=== PATIENT | female | born 1935 | race Caucasian/White ===

== ENCOUNTER → 2016-06-04 | Outpatient (CLI) | payer MEDICARE ==
[2016-06-04 09:46] LABS: Appearance,Urine Clear (Clear); Bilirubin,Urine Negative (Negative); Glucose,Urine (UA) Negative (Negative); Ketones,Urine Negative (Negative); Leukocyte Esterase,Urine Negative (Negative); Nitrite,Urine Negative (Negative); Protein,Urine Negative (Negative); Specific Gravity,Urine 1.005 (1.001-1.035); UA Billing (MACRO vs. MICRO) CHEM; Urobilinogen,Urine <2.0 mg/dL (<2.0)
[2016-06-04 09:49] LABS: Basophils # (A) 0.1 k/uL (0-0.2); Basophils % (A) 1 %; CH 29.5; CHCM 32.9; Eosinophils # (A) 0.2 k/uL (0-0.7); Eosinophils % (A) 4 %; HCT 37.5 % (34.0-46.0); HDW 2.58; HGB 12.1 gm/dL (11.4-16.0); Luc # (Auto) 0.17; Luc % (Auto) 3; Lymphocytes # (A) 1.2 k/uL (1.0-4.8); Lymphocytes % (A) 22 %; MCHC 32.2 g/dL (31.0-37.0); Monocytes # (A) 0.3 k/uL (0-1.0); Monocytes % (A) 6 %; Neutrophils # (A) 3.6 k/uL (1.3-7.7); Neutrophils % (A) 64 %; RBC 4.17 m/uL (3.80-5.40); RDW 12.2 % (11.5-15.5); WBC 5.6 k/uL (3.8-10.6); WBC (Perox) 6.06
[2016-06-04 12:37] LABS: Calcium 9.4 mg/dL (8.4-10.2); Magnesium 2.1 mg/dL (1.6-2.3); Phosphorous 4.7 mg/dL (2.5-4.5); Potassium 4.3 mmol/L (3.5-5.1); Uric Acid 7.2 mg/dL (3.7-7.4)
[2016-06-04 12:47] LABS: % Iron Saturation 29.5 % (20-50)
== END | disposition home or self-care (01) ==
LOC: LABWHC1 09:17
PROVIDERS: ATTEND Internal Medicine Nephrology
DX: N18.4 Chronic kidney disease, stage 4 (severe) (principal); N25.81 Secondary hyperparathyroidism of renal origin; E55.9 Vitamin D deficiency, unspecified; M10.9 Gout, unspecified; N39.0 Urinary tract infection, site not specified
CPT/HCPCS: 36415; 80048; 81003; 82306; 82728; 83540; 83550; 83735; 83970; 84100; 84550; 85025

== ENCOUNTER → 2016-07-13 | Outpatient (CLI) | payer MEDICARE ==
--- NOTE | 2016-07-15 08:23 | MM ---
Reason for exam: screening (asymptomatic). Last mammogram was performed 1 year ago. History: Patient is postmenopausal and is nulliparous. Family history of breast cancer in sister at age 70. Benign MG stereo VAD BX LT of the left breast, December 28, 2013. Benign left mammotome panel of the left breast, December 28, 2011. Benign right mammotome panel of the right breast, November 01, 2009. Benign left mammotome panel of the left breast, November 09, 2007. Benign stereotactic core biopsy of the right breast, September 06, 2003. Core biopsy of the right breast. Taking other hormone for 38 years. Physical Findings: A clinical breast exam by your physician is recommended on an annual basis and results should be correlated with mammographic findings. MG 3D Screening Mammo W/Cad Bilateral CC and MLO view(s) were taken. XCCL view(s) were taken of the right breast. Prior study comparison: July 02, 2015, bilateral MG 3d diag mammo w/cad ROJAS. December 31, 2014, bilateral MG diagnostic mammo w CAD ROJAS. The breast tissue is heterogeneously dense. This may lower the sensitivity of mammography. Finding: There are typically benign coarse, grouped/clustered calcifications. Previous mammotome biopsy in the right and left breast, multiple biopsies. No significant changes in finding since July 02, 2015 and December 31, 2014. ASSESSMENT: Benign, BI-RAD 2 RECOMMENDATION: Routine screening mammogram of both breasts in 1 year.
== END | disposition home or self-care (01) ==
LOC: RADMAMWWP 14:14
PROVIDERS: ATTEND Internal Medicine
DX: Z12.31 Encounter for screening mammogram for malignant neoplasm of breast (principal)
CPT/HCPCS: 77063; G0202

== ENCOUNTER → 2016-11-03 | Outpatient (CLI) | payer MEDICARE ==
[2016-11-03 09:04] LABS: Appearance,Urine Clear (Clear); Basophils # (A) 0.1 k/uL (0-0.2); Basophils % (A) 2 %; Bilirubin,Urine Negative (Negative); CH 29.6; CHCM 32.8; Eosinophils # (A) 0.2 k/uL (0-0.7); Eosinophils % (A) 5 %; Glucose,Urine (UA) Negative (Negative); HCT 32.8 % (34.0-46.0); HDW 2.51; HGB 10.7 gm/dL (11.4-16.0); Ketones,Urine Negative (Negative); Leukocyte Esterase,Urine Negative (Negative); Luc # (Auto) 0.15; Luc % (Auto) 4; Lymphocytes # (A) 1.1 k/uL (1.0-4.8); Lymphocytes % (A) 28 %; MCH 29.5 pg (25.0-35.0); MCHC 32.5 g/dL (31.0-37.0); MCV 90.6 fL (80.0-100.0); Monocytes # (A) 0.3 k/uL (0-1.0); Monocytes % (A) 7 %; Neutrophils # (A) 2.2 k/uL (1.3-7.7); Neutrophils % (A) 55 %; Nitrite,Urine Negative (Negative); PH, Urine 5.5 (5.0-8.0); Protein,Urine Negative (Negative); RBC 3.63 m/uL (3.80-5.40); RDW 12.7 % (11.5-15.5); Specific Gravity,Urine 1.005 (1.001-1.035); UA Billing (MACRO vs. MICRO) CHEM; Urobilinogen,Urine <2.0 mg/dL (<2.0); WBC (Perox) 4.07
[2016-11-03 11:26] LABS: Calcium 9.6 mg/dL (8.4-10.2); Magnesium 2.2 mg/dL (1.6-2.3); Phosphorous 4.3 mg/dL (2.5-4.5); Potassium 4.6 mmol/L (3.5-5.1); Uric Acid 7.7 mg/dL (3.7-7.4)
[2016-11-03 11:39] LABS: % Iron Saturation 23.5 % (20-50)
== END | disposition home or self-care (01) ==
LOC: LABWHC1 08:25
PROVIDERS: ATTEND Nurse Practitioner Family
DX: D64.9 Anemia, unspecified (principal); M10.9 Gout, unspecified; N39.0 Urinary tract infection, site not specified; N18.3 Chronic kidney disease, stage 3 (moderate)
CPT/HCPCS: 36415; 80048; 81003; 82306; 82728; 83540; 83550; 83735; 83970; 84100; 84550; 85025

== ENCOUNTER → 2016-11-20 | Outpatient (CLI) | payer MEDICARE ==
[2016-11-20 10:16] LABS: Appearance,Urine Clear (Clear); Bilirubin,Urine Negative (Negative); Glucose,Urine (UA) Negative (Negative); Ketones,Urine Negative (Negative); Leukocyte Esterase,Urine Negative (Negative); Nitrite,Urine Negative (Negative); Protein,Urine Negative (Negative); Specific Gravity,Urine 1.008 (1.001-1.035); UA Billing (MACRO vs. MICRO) CHEM; Urobilinogen,Urine <2.0 mg/dL (<2.0)
[2016-11-20 10:20] LABS: Calcium 9.4 mg/dL (8.4-10.2); Potassium 4.6 mmol/L (3.5-5.1)
== END ==
LOC: LABWHC1 08:26
PROVIDERS: ATTEND Nurse Practitioner Family
DX: N18.3 Chronic kidney disease, stage 3 (moderate) (principal); N39.0 Urinary tract infection, site not specified
CPT/HCPCS: 36415; 80048; 81003

== ENCOUNTER → 2016-12-04 | Outpatient (CLI) | payer MEDICARE ==
[2016-12-04 10:14] LABS: Appearance,Urine Clear (Clear); Bilirubin,Urine Negative (Negative); Glucose,Urine (UA) Negative (Negative); Ketones,Urine Negative (Negative); Leukocyte Esterase,Urine Trace (Negative); Mucus,Urine Rare /hpf; Nitrite,Urine Negative (Negative); PH, Urine 5.5 (5.0-8.0); Particle Count 928; Protein,Urine Negative (Negative); Specific Gravity,Urine 1.004 (1.001-1.035); UA Billing (MACRO vs. MICRO) MICRO; Urobilinogen,Urine <2.0 mg/dL (<2.0); WBC,Urine 1 /hpf (0-5)
[2016-12-04 10:17] LABS: Calcium 9.2 mg/dL (8.4-10.2); Potassium 4.5 mmol/L (3.5-5.1)
== END | disposition home or self-care (01) ==
LOC: LABWHC1 09:20
PROVIDERS: ATTEND Nurse Practitioner Family
DX: N39.0 Urinary tract infection, site not specified (principal); N18.3 Chronic kidney disease, stage 3 (moderate)
CPT/HCPCS: 36415; 80048; 81001

== ENCOUNTER → 2017-03-29 | Outpatient (CLI) | payer MEDICARE ==
[2017-03-29 13:15] LABS: Calcium 9.5 mg/dL (8.4-10.2); Potassium 4.7 mmol/L (3.5-5.1)
== END | disposition home or self-care (01) ==
LOC: LABWHC1 12:08
PROVIDERS: ATTEND Internal Medicine
DX: I11.9 Hypertensive heart disease without heart failure (principal); K21.0 Gastro-esophageal reflux disease with esophagitis
CPT/HCPCS: 36415; 80048

== ENCOUNTER → 2017-08-18 | Outpatient (CLI) | payer MEDICARE ==
[2017-08-18 08:58] LABS: HCT 37.6 % (34.0-46.0); HGB 12.6 gm/dL (11.4-16.0); MCH 28.9 pg (25.0-35.0); MCHC 33.5 g/dL (31.0-37.0); MCV 86.3 fL (80.0-100.0); Mean Platelet Volume 8.3; Platelet Count 271 k/uL (150-450); RBC 4.36 m/uL (3.80-5.40); WBC 5.6 k/uL (3.8-10.6)
[2017-08-18 09:11] LABS: Appearance,Urine Clear (Clear); Bilirubin,Urine Negative (Negative); Blood,Urine Negative (Negative); Color,Urine Light Yellow; Glucose,Urine (UA) Negative (Negative); Ketones,Urine Negative (Negative); Leukocyte Esterase,Urine Negative (Negative); Nitrite,Urine Negative (Negative); Protein,Urine Negative (Negative); Specific Gravity,Urine 1.006 (1.001-1.035); Urobilinogen,Urine <2.0 mg/dL (<2.0)
[2017-08-18 09:15] LABS: Calcium 9.3 mg/dL (8.4-10.2)
[2017-08-18 16:12] LABS: Iron Saturation 38.41 (12.00-45.00)
[2017-08-18 16:20] LABS: Vitamin D 25 Hydroxy 41.2 ng/mL (30.0-100.0)
[2017-08-18 17:05] LABS: Parathyroid Hormone Intact 71.9 pg/mL (14.0-72.0)
== END | disposition home or self-care (01) ==
LOC: LABWHC1 08:30
PROVIDERS: ATTEND Nurse Practitioner Family
DX: N18.3 Chronic kidney disease, stage 3 (moderate) (principal); E55.9 Vitamin D deficiency, unspecified; N25.81 Secondary hyperparathyroidism of renal origin; D50.9 Iron deficiency anemia, unspecified; N39.0 Urinary tract infection, site not specified
CPT/HCPCS: 36415; 80048; 81003; 82306; 82728; 83540; 83550; 83735; 83970; 84100; 85027

== ENCOUNTER → 2017-08-30 | Outpatient (CLI) | payer MEDICARE ==
--- NOTE | 2017-08-31 13:28 | MM ---
Reason for exam: screening (asymptomatic). Last mammogram was performed 1 year and 2 months ago. History: Patient is postmenopausal and is nulliparous. Family history of breast cancer in sister at age 70. Benign MG stereo VAD BX LT of the left breast, December 28, 2013. Benign left mammotome panel of the left breast, December 28, 2011. Benign right mammotome panel of the right breast, November 01, 2009. Benign left mammotome panel of the left breast, November 09, 2007. Benign stereotactic core biopsy of the right breast, September 06, 2003. Core biopsy of the right breast. Taking other hormone for 38 years. Physical Findings: A clinical breast exam by your physician is recommended on an annual basis and results should be correlated with mammographic findings. MG 3D Screening Mammo W/Cad Bilateral CC and MLO view(s) were taken. Prior study comparison: July 13, 2016, bilateral MG 3d screening mammo w/cad. July 02, 2015, bilateral MG 3d diag mammo w/cad ROJAS. The breast tissue is heterogeneously dense. This may lower the sensitivity of mammography. There are typically benign round, dystrophic calcifications in both breasts. Previous mammotome biopsy in the right breast x 2 and in the left breast. There is no discrete abnormality. ASSESSMENT: Benign, BI-RAD 2 RECOMMENDATION: Routine screening mammogram of both breasts in 1 year.
== END | disposition home or self-care (01) ==
LOC: RADMAMWWP 14:56
PROVIDERS: ATTEND Internal Medicine
DX: Z12.31 Encounter for screening mammogram for malignant neoplasm of breast (principal)
CPT/HCPCS: 77063; 77067

== ENCOUNTER 2017-11-11 22:51 | Inpatient (IN) | payer MEDICARE ==
--- NOTE | 2017-11-11 23:15 | CT ---
EXAMINATION TYPE: CT brain wo con for TPA DATE OF EXAM: 11/11/2017 COMPARISON: 09/02/2015 HISTORY: code stroke CT DLP: 1153.50 mGycm Automated exposure control for dose reduction was used. FINDINGS: There is some cerebral cortical atrophy. There is no mass effect nor midline shift. There is no sign of intracranial hemorrhage. There is 2 cm cortical hypodensity in the left posterior temporal lobe co nsistent with old infarct. The calvarium is intact. 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 CEREBRAL ATROPHY. NO ACUTE INTRACRANIAL ABNO RMALITY.
[2017-11-11 23:20] LABS: Basophils % (A) 1 %; Eosinophils # (A) 0.1 k/uL (0-0.7); Eosinophils % (A) 2 %; HCT 24.5 % (34.0-46.0); HGB 7.9 gm/dL (11.4-16.0); Lymphocytes # (A) 0.8 k/uL (1.0-4.8); Lymphocytes % (A) 12 %; MCH 27.6 pg (25.0-35.0); MCHC 32.4 g/dL (31.0-37.0); MCV 85.3 fL (80.0-100.0); Mean Platelet Volume 8.1; Monocytes # (A) 0.7 k/uL (0-1.0); Monocytes % (A) 10 %; Neutrophils % (A) 73 %; Platelet Count 273 k/uL (150-450); RBC 2.87 m/uL (3.80-5.40); RDW 12.2 % (11.5-15.5); WBC 6.8 k/uL (3.8-10.6)
--- NOTE | 2017-11-11 23:22 | CT ---
EXAMINATION TYPE: CT angio head neck DATE OF EXAM: 11/11/2017 HISTORY: CODE STROKE COMPARISON: CT DLP: 1153.50 mGycm. Automated Exposure Control for Dose Reduction was Utilized. TECHNIQUE: CTA scan of the neck is performed with IV Contrast, patient injected with 65 mL of Isovue 370, axial images are obtained, coronal and sagittal reformatted images are reviewed. Three-D recons tructed images are created on an independent workstation and reviewed. FINDINGS: There is normal branching pattern of the great vessels on the aortic arch. There is mild atheromatous change at the aortic arch. I see no evidence of significant stenosis of the great vessels. There is bilateral arterial flow in the common internal and external carotid arteries. There is redun dant right common carotid artery. I see no significant narrowing at the carotid artery bifurcations. There is no evidence of carotid artery dissection. The right vertebral artery is very small. Left vidhi tebral artery is a relatively large. The basilar artery fills entirely from the left side. There is arterial flow in the anterior middle and posterior cerebral arteries. There is normal contra st opacification of the venous sinuses. There is arterial flow in the vertebrobasilar artery system. There is bilateral patency of the posterior communicating arteries. There is no mass effect. I see no sign of aneurysm or neovascularity. There is no evidence of intracranial arterial stenosis. Middle c erebral arteries are symmetric. The left posterior cerebral artery appears to fill mostly through the posterior communicating artery. IMPRESSION: Minimal atherosclerotic vascular disease. No evidence of hemodynamically significant stenosis. Diminu tive right vertebral artery. Mucous retention tension cyst noted in the left maxillary sinus.
[2017-11-11 23:28] LABS: Partial Thromboplastin Time 22.9 sec (22.0-30.0); Prothrombin Time 9.9 sec (9.0-12.0)
[2017-11-11 23:29] LABS: Albumin 2.7 g/dL (3.5-5.0); Calcium 7.7 mg/dL (8.4-10.2); Potassium 4.3 mmol/L (3.5-5.1); Total Bilirubin 0.3 mg/dL (0.2-1.3)
[2017-11-11 23:38] LABS: Creatine Kinase 43 U/L (30-135)
[2017-11-11 23:50] LABS: Creatine Kinase MB 0.7 ng/mL (0.0-2.4); Troponin I <0.012 ng/mL (0.000-0.034)
[2017-11-12] MEDS ORDERED: ASPIRIN 81 MG PO STA (00:05)
--- NOTE | 2017-11-12 02:05 | ED ---
General Adult HPI - General Chief complaint: Neuro Symptoms/Deficit Stated complaint: Neuro Deficits Source: patient, EMS Mode of arrival: EMS Limitations: altered mental status - History of Present Illness Initial comments: Dictation was produced using [employer] dictation software. please excuse any grammatical, word or spelling errors. Chief Complaint: 82-year-old female past medical history of CVA presents with altered mental status 50 minutes. Patient was with her family when she became acutely altered. Patient has history of CVA several years ago. She takes Plavix. Patient is unable to provide History of Present Illness: 82-year-old female past medical history of CVA presents with altered mental status 50 minutes. Patient was with her family when she became acutely altered. Patient has history of CVA several years ago. She takes Plavix. Patient is unable to provide patient at this time given degree of mentation. EMS reports that patient has stable vital signs. Past Medical History: CVA, TIA, hyperlipidemia, hypertension, renal disease, thyroid disorder Past Surgical History: Adenoidectomy, tonsillectomy Social History: [denies alcohol, tobacco or illicit drug use] - Related Data Home Medications Medication Instructions Recorded Confirmed Atenolol [Tenormin] 50 tab PO DAILY 08/31/15 11/12/17 Clopidogrel [Plavix] 75 mg PO DAILY 08/31/15 11/12/17 Famotidine [Pepcid] 40 mg PO DAILY 08/31/15 11/12/17 Levothyroxine Sodium [Synthroid] 125 mcg PO DAILY 08/31/15 11/12/17 Simvastatin [Zocor] 40 mg PO HS 08/31/15 11/12/17 Ergocalciferol (Vitamin D2) 50,000 unit PO Q30D 05/12/17 11/12/17 [Vitamin D2] Lisinopril [Zestril] 30 mg PO DAILY 11/12/17 11/12/17 Allergies Allergy/AdvReac Type Severity Reaction Status Date / Time codeine Allergy Rash/Hives Verified 11/12/17 03:39 ciprofloxacin AdvReac Diarrhea Verified 11/12/17 03:39 Review of Systems ROS Statement: Those systems with pertinent positive or pertinent negative responses have been documented in the HPI. ROS Other: All systems not noted in ROS Statement are negative. Past Medical History Past Medical History: CVA/TIA, Hyperlipidemia, Hypertension, Renal Disease, Thyroid Disorder Additional Past Medical History / Comment(s): Acute Renal Failure 08/31/15, arthritis- takes extra strength tylenol, Rheumatic fever and miranda fever as a child. Frequent bronchitis History of Any Multi-Drug Resistant Organisms: None Reported Past Surgical History: Adenoidectomy, Tonsillectomy Additional Past Surgical History / Comment(s): part of thyroid removed Past Anesthesia/Blood Transfusion Reactions: Unable to Obtain Past Psychological History: No Psychological Hx Reported Smoking Status: Never smoker Past Alcohol Use History: Unable to Obtain Past Drug Use History: Unable to Obtain - Past Family History Father Family Medical History: No Reported History Mother History Unknown: Yes Family Medical History: Cancer, Diabetes Mellitus Additional Family Medical History / Comment(s): colon cancer Sister(s) Additional Family Medical History / Comment(s): breast cancer General Exam - General Exam Comments Initial Comments: Vitals: Vital signs upon arrival are within acceptable limits. PHYSICAL EXAM: General Impression: Alert and oriented x3, not in acute distress HEENT: Normocephalic atraumatic, extra-ocular movements intact, pupils equal and reactive to light bilaterally, mucous membranes moist. Cardiovascular: Heart regular rate and rhythm, S1&S2 audible, no murmurs, rubs or gallops Chest: Lungs clear to auscultation bilaterally, no rhonchi, no wheeze, no rales Abdomen: Bowel sounds present, abdomen soft, non-tender, non-distended, no organomegaly Musculoskeletal: Pulses present and equal in all extremities, no peripheral edema Motor: Power 5/5 bilaterally, no focal deficits noted Neurological: CN II-XII grossly intact, A phasic, however no asymmetrical weakness or sensory findings Skin: Intact with no visualized rashes Psych: Normal affect and mood Limitations: altered mental status Course Vital Signs 11/11/17 11/11/17 11/11/17 22:51 23:06 23:21 Temperature 99.2 F Pulse Rate 76 73 68 Respiratory 18 18 18 Rate Blood Pressure 151/67 133/62 139/63 O2 Sat by Pulse 98 96 97 Oximetry 11/11/17 11/11/17 11/12/17 23:30 23:50 02:55 Temperature 9.2 F L Pulse Rate 68 68 65 Respiratory 18 18 18 Rate Blood Pressure 126/60 122/59 144/80 O2 Sat by Pulse 97 97 96 Oximetry Medical Decision Making - Medical Decision Making ED course: She is 82-year-old female presents with acute altered mental status. Patient was activated code stroke. Patient given an initial NIH of 2. Patient was evaluated by stroke neurologist. CT and CTA did not show an acute findings. Decision made with code stroke neurologist over robot that patient is not a candidate for TPA at this time. Patient reevaluated couple minutes after she returned from CT and found to be a and O 4. Family was seen at bedside and reports that patient's mentation was much improved however she is still a little confused. Patient was given aspirin. There is strong clinical suspicion that patient's symptoms reflect TIA. neurologist reccommended to have patient admitted for MRI and stroke workup. Discussed patient case with patient's primary care physician was willing to accept admission. He requested neurology to consult. - Lab Data Result diagrams: 11/12/17 10:13 11/13/17 06:38 Lab Results 11/11/17 11/11/17 11/11/17 Range/Units 22:53 23:10 23:10 WBC 6.8 (3.8-10.6) k/uL RBC 2.87 L (3.80-5.40) m/uL Hgb 7.9 L (11.4-16.0) gm/dL Hct 24.5 L (34.0-46.0) % MCV 85.3 (80.0-100.0) fL MCH 27.6 (25.0-35.0) pg MCHC 32.4 (31.0-37.0) g/dL RDW 12.2 (11.5-15.5) % Plt Count 273 (150-450) k/uL Neutrophils % 73 % Lymphocytes % 12 % Monocytes % 10 % Eosinophils % 2 % Basophils % 1 % Neutrophils # 5.0 (1.3-7.7) k/uL Lymphocytes # 0.8 L (1.0-4.8) k/uL Monocytes # 0.7 (0-1.0) k/uL Eosinophils # 0.1 (0-0.7) k/uL Basophils # 0.0 (0-0.2) k/uL PT (9.0-12.0) sec INR (<1.2) APTT (22.0-30.0) sec Sodium 136 L (137-145) mmol/L Potassium 4.3 (3.5-5.1) mmol/L Chloride 103 (98-107) mmol/L Carbon Dioxide 22 (22-30) mmol/L Anion Gap 11 mmol/L BUN 32 H (7-17) mg/dL Creatinine 1.40 H (0.52-1.04) mg/dL Est GFR (CKD-EPI)AfAm 41 (>60 ml/min/1.73 sqM) Est GFR (CKD-EPI)NonAf 36 (>60 ml/min/1.73 sqM) Glucose 118 H (74-99) mg/dL POC Glucose (mg/dL) 153 H (75-99) mg/dL POC Glu [employer] ID [facility] Calcium 7.7 L (8.4-10.2) mg/dL Iron (50-170) ug/dL TIBC (228-460) ug/dL Iron Saturation (12.00-45.00) Ferritin (10.0-291.0) ng/mL Total Bilirubin 0.3 (0.2-1.3) mg/dL AST 21 (14-36) U/L ALT 15 (9-52) U/L Alkaline Phosphatase 62 (38-126) U/L Total Creatine Kinase (30-135) U/L CK-MB (CK-2) (0.0-2.4) ng/mL CK-MB (CK-2) Rel Index Troponin I (0.000-0.034) ng/mL Total Protein 5.0 L (6.3-8.2) g/dL Albumin 2.7 L (3.5-5.0) g/dL 11/11/17 11/11/17 11/11/17 Range/Units 23:10 23:10 23:10 WBC (3.8-10.6) k/uL RBC (3.80-5.40) m/uL Hgb (11.4-16.0) gm/dL Hct (34.0-46.0) % MCV (80.0-100.0) fL MCH (25.0-35.0) pg MCHC (31.0-37.0) g/dL RDW (11.5-15.5) % Plt Count (150-450) k/uL Neutrophils % % Lymphocytes % % Monocytes % % Eosinophils % % Basophils % % Neutrophils # (1.3-7.7) k/uL Lymphocytes # (1.0-4.8) k/uL Monocytes # (0-1.0) k/uL Eosinophils # (0-0.7) k/uL Basophils # (0-0.2) k/uL PT 9.9 (9.0-12.0) sec INR 1.0 (<1.2) APTT 22.9 (22.0-30.0) sec Sodium (137-145) mmol/L Potassium (3.5-5.1) mmol/L Chloride (98-107) mmol/L Carbon Dioxide (22-30) mmol/L Anion Gap mmol/L BUN (7-17) mg/dL Creatinine (0.52-1.04) mg/dL Est GFR (CKD-EPI)AfAm (>60 ml/min/1.73 sqM) Est GFR (CKD-EPI)NonAf (>60 ml/min/1.73 sqM) Glucose (74-99) mg/dL POC Glucose (mg/dL) (75-99) mg/dL POC Glu Redeye Gunner ID Calcium (8.4-10.2) mg/dL Iron 4 L (50-170) ug/dL TIBC 240 (228-460) ug/dL Iron Saturation 1.67 L (12.00-45.00) Ferritin 74.4 (10.0-291.0) ng/mL Total Bilirubin (0.2-1.3) mg/dL AST (14-36) U/L ALT (9-52) U/L Alkaline Phosphatase (38-126) U/L Total Creatine Kinase 43 (30-135) U/L CK-MB (CK-2) 0.7 (0.0-2.4) ng/mL CK-MB (CK-2) Rel Index 1.6 Troponin I <0.012 (0.000-0.034) ng/mL Total Protein (6.3-8.2) g/dL Albumin (3.5-5.0) g/dL Disposition Clinical Impression: TIA (transient ischemic attack) Disposition: ADMITTED IP TO THIS [facility] Time of Disposition: 02:08
[2017-11-12] MEDS: SODIUM CHLORIDE 0.9% 1,000 ML IV SCH ×2 (03:08→12:05)
[2017-11-12 03:43] VITALS: BMI 22.7
--- NOTE | 2017-11-12 07:24 | P.NPCON ---
History of Present Illness - Reason for Consult acute renal failure - History of Present Illness Reason for consultation: Acute kidney injury on chronic kidney disease History of present illness: Patient is a 82-year-old female seen in consultation for acute kidney injury on chronic kidney disease. 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 Creatinine was 1.4 on admission. Patient presented with mental status changes. Apparently the patient became acutely confused and was brought to the hospital by the family. She does have a history of stroke in 2009. Her CT of the brain revealed no acute changes. She also had a CT angiogram of the head and neck done on November 11 which also revealed no acute changes. Patient's currently resting in bed. She is alert and oriented. Denies chest pain or shortness of breath. She denies weakness in any extremities. Admits to good urine output. No hematuria or dysuria. Denies chest pain or shortness of breath. Denies use of NSAIDs. No fever or chills. Vital signs are stable. General: The patient appeared well nourished and normally developed. HEENT: Head exam is unremarkable. Neck is without jugular venous distension. LUNGS: Lungs are clear to auscultation and percussion. Breath sounds decreased. HEART: Rate and Rhythm are regular. First and second heart sounds normal. No murmurs, rubs or gallops. ABDOMEN: Abdominal exam reveals normal bowel sounds. Non-tender and non- distended. No evidence of peritonitis. EXTREMITITES: No clubbing, cyanosis, or edema. Past Medical History Past Medical History: CVA/TIA, Hyperlipidemia, Hypertension, Renal Disease, Thyroid Disorder Additional Past Medical History / Comment(s): Acute Renal Failure 08/31/15, arthritis- takes extra strength tylenol, Rheumatic fever and miranda fever as a child. Frequent bronchitis History of Any Multi-Drug Resistant Organisms: None Reported Past Surgical History: Adenoidectomy, Tonsillectomy Additional Past Surgical History / Comment(s): part of thyroid removed Past Anesthesia/Blood Transfusion Reactions: Previous Problems w/ Anesthesia Additional Past Anesthesia/Blood Transfusion Reaction / Comment(s): patient states she had a hard time waking up after having anesthesia Past Psychological History: No Psychological Hx Reported Smoking Status: Never smoker Past Alcohol Use History: None Reported Past Drug Use History: None Reported - Past Family History Father Family Medical History: No Reported History Additional Family Medical History / Comment(s): parkinsons Mother History Unknown: Yes Family Medical History: Cancer, Diabetes Mellitus Additional Family Medical History / Comment(s): colon cancer Sister(s) Additional Family Medical History / Comment(s): breast cancer Medications and Allergies Home Medications Medication Instructions Recorded Confirmed Type Atenolol [Tenormin] 50 tab PO DAILY 08/31/15 05/12/17 History Clopidogrel [Plavix] 75 mg PO DAILY 08/31/15 05/12/17 History Famotidine [Pepcid] 40 mg PO DAILY 08/31/15 05/12/17 History Levothyroxine Sodium [Synthroid] 125 mcg PO DAILY 08/31/15 05/12/17 History Simvastatin [Zocor] 40 mg PO HS 08/31/15 05/12/17 History Lisinopril [Zestril] 10 mg PO DAILY 09/01/15 05/12/17 History Lisinopril [Zestril] 20 mg PO HS 09/01/15 05/12/17 History Ergocalciferol (Vitamin D2) 50,000 unit PO 05/12/17 History [Vitamin D2] Allergies Allergy/AdvReac Type Severity Reaction Status Date / Time codeine Allergy Rash/Hives Verified 11/12/17 03:39 ciprofloxacin AdvReac Diarrhea Verified 11/12/17 03:39 Physical Exam Vitals: Vital Signs Temp Pulse Pulse Resp BP BP Pulse Ox 11/12/17 04:00 96.3 F L 64 16 129/68 98 11/12/17 02:55 9.2 F L 65 18 144/80 96 11/11/17 23:50 68 18 122/59 97 11/11/17 23:30 68 18 126/60 97 11/11/17 23:21 68 18 139/63 97 11/11/17 23:06 73 18 133/62 96 11/11/17 22:51 99.2 F 76 18 151/67 98 Intake and Output 11/11/17 11/12/17 11/12/17 22:59 06:59 14:59 Intake Total 200 Balance 200 Intake: IV 200 Sodium Chloride 0.9% 1, 200 000 ml @ 100 mls/hr IV . Q10H [facility] Rx#:[id number] Other: Weight 74.843 kg 62 kg Results - Lab Results Most recent lab results Calcium 7.7 mg/dL (8.4-10.2) L 11/11/17 23:10 11/11/17 23:10 11/11/17 23:10 Assessment and Plan Plan: Assessment: 1. Mild nonoliguric acute kidney injury, expect mostly prerenal. Creatinine 1.4 on admission. She did receive IV contrast dye on November 11 but contrast- induced nephropathy is typically seen in 48-72 hours post-dye exposure. 2. Chronic kidney disease stage III with baseline creatinine 1.1-1.3 secondary to nephrosclerosis. 3. Hypertension with chronic kidney disease. Controlled. 4. Anemia. Rule out iron deficiency. 5. Mental status changes. Unclear cause. Brain CT revealed no acute changes. CT angiogram of the head and neck also revealed no significant abnormalities. Possibly TIA. 6. History of CVA 2009. Plan: Continue normal saline at 100 mL an hour for the next 24 hours. Check iron studies. Avoid nephrotoxins. Repeat electrolytes in the morning. Monitor renal function closely for the next 24-48 hours. Check urinalysis. Thank you for the consultation. I will continue to follow patient with you during her hospital stay.
[2017-11-12] MEDS: HEPARIN SODIUM,PORCINE 5,000 UNIT/ML 1 ML VIAL SQ SCH ×2 (09:11→18:01)
[2017-11-12] MEDS ORDERED: LISINOPRIL 20 MG TAB PO SCH (10:00)
[2017-11-12 10:43] LABS: Basophils % (A) 1 %; Eosinophils # (A) 0.1 k/uL (0-0.7); Eosinophils % (A) 2 %; HCT 25.6 % (34.0-46.0); HGB 8.2 gm/dL (11.4-16.0); Lymphocytes # (A) 0.6 k/uL (1.0-4.8); Lymphocytes % (A) 11 %; MCH 27.9 pg (25.0-35.0); MCHC 32.1 g/dL (31.0-37.0); MCV 87.1 fL (80.0-100.0); Mean Platelet Volume 7.8; Monocytes # (A) 0.5 k/uL (0-1.0); Monocytes % (A) 8 %; Neutrophils # (A) 4.5 k/uL (1.3-7.7); Neutrophils % (A) 77 %; Platelet Count 292 k/uL (150-450); RBC 2.94 m/uL (3.80-5.40); RDW 12.1 % (11.5-15.5); WBC 5.9 k/uL (3.8-10.6)
[2017-11-12] MEDS: FAMOTIDINE 20 MG TAB PO SCH (12:03)
[2017-11-12] MEDS: LEVOTHYROXINE 125 MCG TAB PO SCH (12:03)
[2017-11-12] MEDS: ATENOLOL 50 MG TAB PO SCH (12:04)
[2017-11-12] MEDS: CLOPIDOGREL 75 MG TAB PO SCH (12:04)
--- NOTE | 2017-11-12 12:06 | HP ---
HISTORY AND PHYSICAL DATE OF ADMISSION: 11/12/2017 CHIEF COMPLAINT: Altered mental status, acute onset of mental confusion. This is an 82-year-old white female who was with her family and she suddenly developed some mental confusion and she has had no other symptoms. Denied any headache or any weakness. The patient was brought to the emergency room. In the ER, her blood chemistry was unremarkable with a sodium 136, potassium 4.3, and serum creatinine 1.40, BUN 32, and cardiac enzymes were within normal limits. Her WBC 6.8, hemoglobin 7.9, and platelet count 273,000. CT of the head showed old left temporal lobe infarct and CT angio of the head and neck showed minimal atherosclerotic vascular disease and no evidence of hemodynamically significant stenosis. The patient was admitted to the hospital for further evaluation and treatment. PAST MEDICAL HISTORY: Her past medical history reveals that she has history of CVA in the past and it was in 2009 and she was at that time transferred to [facility] and has had some thrombolytic treatments and she recovered completely from neurological status. She is also known to have chronic renal failure, but it started as an acute renal failure with hypercalcemia and currently she is doing well and she has been following with ordnance handler, Dr. Almonte. The patient also is known to have hypertensive cardiovascular disease, hypothyroidism, degenerative arthritis of multiple joints. CURRENT MEDICATION: Her current medications include: 1. Tenormin 50 mg p.o. daily. 2. Plavix 75 mg p.o. daily. 3. Pepcid 40 mg p.o. daily. 4. Synthroid 125 mcg daily. 5. Simvastatin 40 mg p.o. daily. 6. Lisinopril 10 mg p.o. daily. 7. She is also on vitamin D. ALLERGIES: She is allergic to CODEINE and CIPRO. She gets some rash with CODEINE and diarrhea with CIPRO. She has had no major operations. She has had tonsillectomy and adenoidectomy in the past. She does not smoke and she does not drink alcohol. FAMILY HISTORY: There is history of arthritis and heart disease. REVIEW OF SYSTEMS: Patient denies any headache. Appetite has been good. Bowels are regular. She denies any black stool or rectal bleeding and she has no chest pain. She has no cough. She has no abdominal pain. She has no polyuria or dysuria. She has neurological symptoms as mentioned before. PHYSICAL EXAMINATION: Physical examination reveals an 82-year-old white female. She is weak and anemic and she is alert and she is slightly confused although her mental confusion is improving. There is no jaundice. There is no generalized lymphadenopathy. There is no petechia or bruises. She is afebrile and blood pressure 126/60, respirations 18 per minute, O2 saturation by pulse ox 97%. EXAMINATION OF THE ENT: Negative. Neck is supple. There is no jugular venous distention. There is no goiter and there is no carotid bruit. Heart is in sinus rhythm. Lungs are clear to auscultation and percussion. Abdomen is soft and nontender. There is no mass palpable. Examination of the lower extremities reveal no pitting edema. Neurologic examination does not reveal any localizing signs. IMPRESSION: 1. Transient ischemic attack. 2. Past history of cerebrovascular accident. 3. Hypertensive cardiovascular disease. 4. Hypothyroidism. 5. Degenerative arthritis multiple joints. 6. Chronic renal failure. 7. Anemia, etiology undetermined. 8. Gastroesophageal reflux disease. PLAN: Patient will be admitted to telemetry and plan to monitor her neurological status. We will get an MRI and MRA if okay with the ordnance handler for the giving the IV contrast. We will also get neurology consultation. She has a history of hypertensive cardiovascular disease and cardiac arrhythmia in the past and we will get a cardiology consultation. Will be placed back on her previous home medications. We will check a stool for occult blood and monitor her hemoglobin. We will also get a gastroenterology consultation when her condition is stable. Prognosis guarded. The diagnosis, prognosis and therapeutic plans were discussed in detail with the patient. She appeared to have understood this. MMODL / IJN: [id number] /
--- NOTE | 2017-11-12 12:29 | ECHOF ---
Referral Reason:Tia, ams MEASUREMENTS -------- HEIGHT: 165.1 cm WEIGHT: 61.7 kg BP: 123/56 IVSd: 1.0 cm (0.6 - 1.1) LVIDd: 4.9 cm (3.9 - 5.3) LVPWd: 1.4 cm (0.6 - 1.1) IVSs: 1.8 cm LVIDs: 2.6 cm LVPWs: 1.6 cm LAESV Index (A-L): 37.18 ml/m Ao Diam: 3.0 cm (2.0 - 3.7) AV Cusp: 1.9 cm (1.5 - 2.6) LA Diam: 3.4 cm (2.7 - 3.8) MV EXCURSION: 15.965 mm (> 18.000) MV EF SLOPE: 150 mm/s (70 - 150) EPSS: 0.4 cm MV E Tristen: 1.14 m/s MV DecT: 244 ms MV A Tristen: 1.02 m/s MV E/A Ratio: 1.12 RAP: 5.00 mmHg RVSP: 11.24 mmHg FINDINGS -------- Resting bradycardia (HR<60bpm). This was a technically good study. The left ventricular size is normal. There is borderline concentric left ventricular hypertrophy. Overall left ventricular systolic function is normal with, an EF between 55 - 60 %. The right ventricle is normal in size and function. LA is moderately dilated 34-39 ml/m2 The right atrium is normal in size. The aortic valve is trileaflet, and appears structurally normal. No aortic stenosis or regurgitation. The mitral valve leaflets are mildly thickened. Mild mitral regurgitation is present. Trace tricuspid regurgitation present. The right ventricular systolic pressure, as measured by Dopp ler, is 11.24mmHg. Pulmonic valve appears structurally normal. The aortic root size is normal. Normal inferior vena cava with normal inspiratory collapse consistent with estimated right atrial pre ssure of 5 mmHg. The pericardium is normal. CONCLUSIONS -------- 1. Resting bradycardia (HR<60bpm). 2. This was a technically good study. 3. The left ventricular size is normal. 4. There is borderline concentric left ventricular hypertrophy. 5. Overall left ventricular systolic function is normal with, an EF between 55 - 60 %. 6. The right ventricle is normal in size and function. 7. LA is moderately dilated 34-39 ml/m2 8. The right atrium is normal in size. 9. The aortic valve is trileaflet, and appears structurally normal. No aortic stenosis or regurgitati on. 10. The mitral valve leaflets are mildly thickened. 11. Mild mitral regurgitation is present. 12. Trace tricuspid regurgitation present. 13. The right ventricular systolic pressure, as measured by Doppler, is 11.24mmHg. 14. Pulmonic valve appears structurally normal. 15. The aortic root size is normal. 16. Normal inferior vena cava with normal inspiratory collapse consistent with estimated right atrial pressure of 5 mmHg. 17. The pericardium is normal. DOOR FITTER: Zhane Mahajan RDCS
--- NOTE | 2017-11-12 14:08 | CONS ---
CONSULTATION CHIEF COMPLAINT: TIA. This is an 82-year-old lady with history of prior CVA, status post thrombolytic therapy in 2010, hypertension, renal insufficiency, hypothyroidism, and dyslipidemia who presented to hospital with symptoms of mental status changes. Cardiology had been consulted because of a history of cardiac arrhythmia. The patient is somewhat slow to respond when you talk to her. Denies chest pain, difficulty in breathing, palpitations, dizziness or syncope. CT scan of the head on this admission revealed a temporal lobe infarct and CTA is negative. EKG shows sinus rhythm. Rhythm strip did not document any cardiac arrhythmias. PAST MEDICAL HISTORY: Significant for CVA. ALLERGIES: The patient is allergic to CODEINE and CIPRO. MEDICATIONS: Medications include to Tenormin 50 q. daily, Plavix 75 q. daily, Pepcid 40 q. daily, Synthroid, simvastatin, lisinopril. FAMILY HISTORY: Significant for arthritis. SOCIAL HISTORY: Negative for smoking, EtOH abuse, or drug abuse. PAST SURGICAL HISTORY: Significant for tonsillectomy and adenoidectomy. REVIEW OF SYSTEMS: HEENT is unremarkable. CARDIAC: As described above. RESPIRATORY: Negative. GI: Negative. GENITOURINARY: Negative. ALLERGY/IMMUNOLOGY: Negative. SKIN: Negative. MUSCULOSKELETAL: Significant for arthritis. PSYCHOSOCIAL: Negative. ENDOCRINE: Negative. HEMATOLOGICAL: Negative. DERM: Negative. CONSTITUTIONAL: Negative. ONCOLOGICAL: Negative. NEUROLOGICAL: Significant for mental status changes. Rest of the system review is not relevant. PHYSICAL EXAMINATION: On exam, afebrile. Heart rate is 63 beats per minute. Blood pressure is 123/52. Respiratory rate is 18. O2 sat is 96% on room air. There is no jugular venous distention. Carotid upstroke is normal. There is no bruit. Chest exam reveals good air entry bilaterally. Heart exam reveals first and second heart sounds. No gallop. No murmur. No rub. Abdomen is soft, nontender. Examination of extremities did not reveal any edema. Peripheral pulses are felt. WRAPPER DIPPER exam did not reveal focal neurological deficits. LABS: Labs show a hemoglobin of 8.2, platelet count is 292. Potassium is 4.3. BUN is 32, creatinine is 1.4. EKG shows normal sinus rhythm. ASSESSMENT: 1. Transient ischemic attack. 2. Chronic renal insufficiency. 3. Hypertension. 4. History of cardiac arrhythmia. PLAN: I will obtain a 2-D echo to evaluate LV function. If that looks benign, she does not require any further cardiac workup at this time. If rhythm strips show episodes of atrial fibrillation, certainly we need to anticoagulate her, but at the moment she is in sinus rhythm. Thank you for giving us the privilege to participate in the care of this pleasant lady. TASIA / RADHAN: [id number] /
--- NOTE | 2017-11-12 16:14 | P.CONS ---
History of Present Illness - Reason for Consult Consult date: 11/12/17 Altered mental status - Chief Complaint Altered mental status - History of Present Illness Is a pleasant 82-year-old female being evaluated by the neurology service for an episode of altered mental status. She has a significant history of previous CVA which was treated with TPA successfully. Yesterday evening the patient was with her family and the cane confused and she believes dysarthric. She says she also became somewhat weak and believe she fell to the ground. She denies any injury. Exam in the ER indicates that she was aphasic with no lateralizing weakness. Code stroke was activated and she was not found be a candidate for TPA. CT of the brain showed no acute intracranial abnormalities. Records indicate that by the time she got back from her CT she was alert and oriented 4. However, the family says she was still a little confused. My not present during my exam I do not know her baseline. Laboratory evaluation in the ER does show hemoglobin of 7.9 and hematocrit 24.5, her sodium was mildly decreased at 136. Her BUN is 32 and creatinine of 1.4. Her calcium is 7.7. Her troponin was normal. Her CBC was normal. Nephrology and cardiology are evaluating her. MRI and MRA of the brain have been ordered. At the time my exam she is resting comfortably in bed in no acute distress. 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 Frequent bronchitis History of Any Multi-Drug Resistant Organisms: None Reported Past Surgical History: Adenoidectomy, Tonsillectomy Additional Past Surgical History / Comment(s): part of thyroid removed Past Anesthesia/Blood Transfusion Reactions: Previous Problems w/ Anesthesia Additional Past Anesthesia/Blood Transfusion Reaction / Comm: patient states she had a hard time waking up after having anesthesia Past Psychological History: No Psychological Hx Reported Smoking Status: Never smoker Past Alcohol Use History: None Reported Past Drug Use History: None Reported - Past Family History Father Family Medical History: No Reported History Additional Family Medical History / Comment(s): parkinsons Mother History Unknown: Yes Family Medical History: Cancer, Diabetes Mellitus Additional Family Medical History / Comment(s): colon cancer Sister(s) Additional Family Medical History / Comment(s): breast cancer Medications and Allergies Home Medications Medication Instructions Recorded Confirmed Type Atenolol [Tenormin] 50 tab PO DAILY 08/31/15 11/12/17 History Clopidogrel [Plavix] 75 mg PO DAILY 08/31/15 11/12/17 History Famotidine [Pepcid] 40 mg PO DAILY 08/31/15 11/12/17 History Levothyroxine Sodium [Synthroid] 125 mcg PO DAILY 08/31/15 11/12/17 History Simvastatin [Zocor] 40 mg PO HS 08/31/15 11/12/17 History Ergocalciferol (Vitamin D2) 50,000 unit PO Q30D 05/12/17 11/12/17 History [Vitamin D2] Lisinopril [Zestril] 30 mg PO DAILY 11/12/17 11/12/17 History Allergies Allergy/AdvReac Type Severity Reaction Status Date / Time codeine Allergy Rash/Hives Verified 11/12/17 03:39 ciprofloxacin AdvReac Diarrhea Verified 11/12/17 03:39 Physical Exam Vitals: Vital Signs Temp Pulse Pulse Resp BP BP Pulse Ox 11/12/17 12:00 64 18 129/58 99 11/12/17 08:00 98 F 63 18 123/56 96 11/12/17 04:00 96.3 F L 64 16 129/68 98 11/12/17 02:55 9.2 F L 65 18 144/80 96 11/11/17 23:50 68 18 122/59 97 11/11/17 23:30 68 18 126/60 97 11/11/17 23:21 68 18 139/63 97 11/11/17 23:06 73 18 133/62 96 11/11/17 22:51 99.2 F 76 18 151/67 98 Intake and Output 11/12/17 11/12/17 11/12/17 06:59 14:59 22:59 Intake Total 200 150 Balance 200 150 Intake: IV 200 Sodium Chloride 0.9% 1, 200 000 ml @ 100 mls/hr IV . Q10H [facility] Rx#:[id number] Oral 150 Other: Voiding Method Diaper # Voids 1 # Bowel Movements 0 Weight 62 kg - Constitutional General appearance: average body habitus, cooperative, no acute distress - EENT Eyes: no abnormal pupil, EOMI, PERRLA, no ptosis ENT: hearing grossly normal - Neck Neck: normal ROM, no rigidity - Respiratory Respiratory: negative: prolonged expiration, prolonged inspiration - Cardiovascular Rhythm: regular - Gastrointestinal General gastrointestinal: no distended, no tenderness - Neurologic The patient is alert awake and oriented 3. Although I do not know her baseline , she does seem mildly confused. Speech and language are normal. There is no facial asymmetry. Strength is 5 out of 5 in bilateral upper and lower extremities. There is no sensory deficit. No tremors or seizures are seen. Cranial nerves II through XII are intact globally. Results CBC & Chem 7: 11/12/17 10:13 11/11/17 23:10 Labs: Abnormal Lab Results - Last 24 Hours (Table) 11/11/17 11/11/17 11/12/17 Range/Units 23:10 23:10 10:13 RBC 2.87 L 2.94 L (3.80-5.40) m/uL Hgb 7.9 L 8.2 L (11.4-16.0) gm/dL Hct 24.5 L 25.6 L (34.0-46.0) % Lymphocytes # 0.8 L 0.6 L (1.0-4.8) k/uL Sodium 136 L (137-145) mmol/L BUN 32 H (7-17) mg/dL Creatinine 1.40 H (0.52-1.04) mg/dL Glucose 118 H (74-99) mg/dL Calcium 7.7 L (8.4-10.2) mg/dL Total Protein 5.0 L (6.3-8.2) g/dL Albumin 2.7 L (3.5-5.0) g/dL Assessment and Plan (1) History of stroke Current Visit: Yes Status: Chronic Code(s): Z86.73 - PRSNL HX OF TIA (TIA), AND CEREB INFRC W/O RESID DEFICITS SNOMED Code(s): 014858132 (2) Anemia Current Visit: Yes Status: Chronic Code(s): D64.9 - ANEMIA, UNSPECIFIED SNOMED Code(s): 917074254 (3) Altered mental status Current Visit: Yes Status: Acute Code(s): R41.82 - ALTERED MENTAL STATUS, UNSPECIFIED SNOMED Code(s): 992674565 (4) Acute encephalopathy Current Visit: Yes Status: Acute Code(s): G93.40 - ENCEPHALOPATHY, UNSPECIFIED SNOMED Code(s): 65789278 (5) TIA (transient ischemic attack) Current Visit: Yes Status: Acute Code(s): G45.9 - TRANSIENT CEREBRAL ISCHEMIC ATTACK, UNSPECIFIED SNOMED Code(s): 605806324 (6) Acute renal failure (ARF) Current Visit: No Status: Acute Code(s): N17.9 - ACUTE KIDNEY FAILURE, UNSPECIFIED SNOMED Code(s): 89248182 (7) Elevated troponin Current Visit: No Status: Acute Code(s): R79.89 - OTHER SPECIFIED ABNORMAL FINDINGS OF BLOOD CHEMISTRY SNOMED Code(s): 709980108 (8) Hypercalcemia Current Visit: No Status: Acute Code(s): E83.52 - HYPERCALCEMIA SNOMED Code(s): 24035208 (9) Hypertension Current Visit: No Status: Chronic Code(s): I10 - ESSENTIAL (PRIMARY) HYPERTENSION SNOMED Code(s): 21462200 Plan: The patient has likely suffered an acute transient ischemic attack. However, she is still seemingly a little bit confused which is likely from a multifactorial encephalopathy given her metabolic abnormalities. I will order an EEG. MRI and MRA have already been ordered. Urinalysis is also been ordered to rule out infection. She will continue Plavix and Lipitor at her current doses. Continue evaluation and treatment by cardiology and nephrology. Continue to treat her underlying metabolic abnormalities. We will continue to follow and make recommendations based on the above studies. I have performed a history and physical on the above patient. I have reviewed the above note, and agree.
[2017-11-12 16:26] LABS: Iron Saturation 1.67 (12.00-45.00)
[2017-11-12] MEDS ORDERED: PRAVASTATIN SODIUM 40 MG TAB PO SCH (21:00)
[2017-11-12] MEDS ORDERED: ATORVASTATIN 20 MG TAB PO SCH (21:00)
[2017-11-13] MEDS: ASPIRIN 325 MG TAB PO SCH ×2 (02:55→12:53)
[2017-11-13] MEDS: HEPARIN SODIUM,PORCINE 5,000 UNIT/ML 1 ML VIAL SQ SCH ×2 (02:55→12:48)
[2017-11-13] MEDS: SODIUM CHLORIDE 0.9% 1,000 ML IV SCH ×2 (02:56→12:54)
[2017-11-13] MEDS: LEVOTHYROXINE 125 MCG TAB PO SCH (06:23)
[2017-11-13 06:27] VITALS: PULSE 64; RESP 14
[2017-11-13 07:21] LABS: Cholesterol 100 mg/dL (<200); HDL Cholesterol 30 mg/dL (40-60); LDL Cholesterol,Calculated 49 mg/dL (0-99); Triglycerides 106 mg/dL (<150)
[2017-11-13 08:15] LABS: T4, Free (Free Thyroxine) 2.21 ng/dL (0.78-2.19)
[2017-11-13 10:34] LABS: Calcium 8.1 mg/dL (8.4-10.2); Potassium 4.5 mmol/L (3.5-5.1)
[2017-11-13 10:48] LABS: Parathyroid Hormone Intact 72.1 pg/mL (14.0-72.0)
--- NOTE | 2017-11-13 12:23 | MR ---
EXAMINATION TYPE: MR angio head wo con DATE OF EXAM: 11/13/2017 12:07 PM COMPARISON: Previous CT angiogram of the head and neck dated 11/11/2017. HISTORY: CODE STROKE, TECHNIQUE: Time of flight images focusing on the [place] of [place] were performed without contrast. FINDINGS: The right vertebral artery is not visualized with certainty. There is a origin of the left posterior cerebral artery. The right posterior communicating kimberly ry is not well-visualized. Both ophthalmic arteries are visualized. There is normal arborization of the middle cerebral arteries There is a linear filling defect within the intracavernous portion of the right carotid artery there is also linear flow defect within the intracavernous portion of the left carotid artery this appears to extend into the left middle cerebral artery and questionably into the right middle cerebral artery . There is a questionable occlusion of the A1 and A2 segments of the left anterior cerebral artery. No sizable aneurysm is seen. IMPRESSION: 1. I cannot exclude dissections of both internal carotid arteries extending into the middle cerebral arteries bilaterally. 2. Apparent occlusion of the A1 and A2 segments of the anterior cerebral artery on the left.
--- NOTE | 2017-11-13 12:27 | MR ---
EXAMINATION TYPE: MR brain wo/w con DATE OF EXAM: 11/13/2017 12:09 PM COMPARISON: NONE HISTORY: CODE STROKE, Gadavist 7.5ml TECHNIQUE: Multiplanar, multiecho imaging of the brain was obtained with and without intravenous adm inistration of 7.5 mL intravenous Gadavist. FINDINGS: Midline structures are unremarkable. There is a normal craniocervical junction. There is restricted diffusion in the distribution of the left anterior cerebral artery indicative of acute ischemia. The orbits are unremarkable. There is no evidence of a CP angle mass lesion. There are abnormal areas of signal within the left anterior frontal lobe in the distribution of the l eft anterior cerebral artery as well as in the occipital lobes bilaterally. There is no mass effect, midline shift or intracranial blood. Ventricular size is normal. Following intravenous administration of gadolinium, I do not see evidence of abnormal enhancement. IMPRESSION: 1. EVIDENCE OF A LEFT FRONTAL INFARCT. 2. SCATTERED ABNORMALITIES IN THE LEFT OCCIPITAL PARIETAL REGION MAY REPRESENT OLD AREAS OF INFARCTIO N.
[2017-11-13] MEDS: FAMOTIDINE 20 MG TAB PO SCH (12:53)
[2017-11-13] MEDS: ATENOLOL 50 MG TAB PO SCH (12:53)
[2017-11-13] MEDS: CLOPIDOGREL 75 MG TAB PO SCH (12:53)
[2017-11-13 13:04] VITALS: BP 145/69; TEMP 99.2
--- NOTE | 2017-11-13 14:13 | P.PN ---
Subjective Progress Note Date: 11/13/17 Principal diagnosis: Stroke This pleasant 82-year-old female continuing to be evaluated by the neurology service for altered mental status. Recall that she had a previous CVA that was treated with TPA successfully. This episode consisted of confusion and weakness. Code stroke was activated in the ER and she was not a candidate for TPA. CT of the brain showed no acute intracranial abnormalities. Her subsequent MRI showed evidence of a left frontal infarct as well as old areas of infarction in the left occipital and parietal region. Her MRA was suspicious for bilateral internal carotid dissections extending into the middle cerebral arteries bilaterally. It's time my exam today she is resting comfortably in bed and she has no new neurological symptoms. Objective - Vital Signs Vital signs: Vital Signs Temp 99.2 F 11/13/17 12:00 Pulse 64 11/13/17 12:00 Resp 14 11/13/17 12:00 BP 145/69 11/13/17 12:00 Pulse Ox 99 11/13/17 04:00 Intake & Output 11/12/17 11/13/17 11/13/17 18:59 06:59 18:59 Intake Total 350 240 Balance 350 240 Weight 62.5 kg Intake: Oral 350 240 Other: Voiding Method Diaper Diaper Diaper # Voids 1 2 # Bowel Movements 0 0 - Constitutional General appearance: Present: average body habitus, cooperative, no acute distress - EENT Eyes: Present: EOMI, PERRLA. Absent: abnormal pupil, ptosis ENT: Present: hearing grossly normal - Neck Neck: Present: normal ROM. Absent: rigidity - Respiratory Respiratory: negative: prolonged expiration, prolonged inspiration - Cardiovascular Rhythm: regular - Gastrointestinal General gastrointestinal: Absent: distended, tenderness - Neurologic Neurologic Comment(s): The patient is alert awake and oriented 3. Speech rate is a little slow and language is normal. There is no dysarthria or aphasia. There is no facial asymmetry. Strength is 5 out of 5 in bilateral upper and lower extremities. There is no sensory deficit. No tremors or seizures are seen. Cranial nerves II through XII are intact globally. No dysmetria. No visual field cuts - Labs CBC & Chem 7: 11/12/17 10:13 11/13/17 06:38 Labs: Abnormal Lab Results - Last 24 Hours (Table) 07/07/18 07/07/18 Range/Units 06:38 06:38 Chloride 114 H (98-107) mmol/L Carbon Dioxide 21 L (22-30) mmol/L BUN 19 H (7-17) mg/dL Creatinine 1.15 H (0.52-1.04) mg/dL Calcium 8.1 L (8.4-10.2) mg/dL HDL Cholesterol 30 L (40-60) mg/dL TSH <0.015 L (0.465-4.680) mIU/L Free T4 2.21 H (0.78-2.19) ng/dL Assessment and Plan (1) History of stroke Current Visit: Yes Status: Chronic Code(s): Z86.73 - PRSNL HX OF TIA (TIA), AND CEREB INFRC W/O RESID DEFICITS SNOMED Code(s): 214562990 (2) Anemia Current Visit: Yes Status: Chronic Code(s): D64.9 - ANEMIA, UNSPECIFIED SNOMED Code(s): 651188471 (3) Altered mental status Current Visit: Yes Status: Acute Code(s): R41.82 - ALTERED MENTAL STATUS, UNSPECIFIED SNOMED Code(s): 464332571 (4) Acute encephalopathy Current Visit: Yes Status: Acute Code(s): G93.40 - ENCEPHALOPATHY, UNSPECIFIED SNOMED Code(s): 95819069 (5) TIA (transient ischemic attack) Current Visit: Yes Status: Acute Code(s): G45.9 - TRANSIENT CEREBRAL ISCHEMIC ATTACK, UNSPECIFIED SNOMED Code(s): 078026675 (6) Acute renal failure (ARF) Current Visit: No Status: Acute Code(s): N17.9 - ACUTE KIDNEY FAILURE, UNSPECIFIED SNOMED Code(s): 09511757 (7) Elevated troponin Current Visit: No Status: Acute Code(s): R79.89 - OTHER SPECIFIED ABNORMAL FINDINGS OF BLOOD CHEMISTRY SNOMED Code(s): 513329111 (8) Hypercalcemia Current Visit: No Status: Acute Code(s): E83.52 - HYPERCALCEMIA SNOMED Code(s): 57935278 (9) Hypertension Current Visit: No Status: Chronic Code(s): I10 - ESSENTIAL (PRIMARY) HYPERTENSION SNOMED Code(s): 48878827 (10) CVA (cerebral vascular accident) Current Visit: Yes Status: Acute Code(s): I63.9 - CEREBRAL INFARCTION, UNSPECIFIED SNOMED Code(s): 581654088 (11) Carotid dissection, bilateral Current Visit: Yes Status: Acute Code(s): I77.71 - DISSECTION OF CAROTID ARTERY SNOMED Code(s): 353889029 Plan: The patient has experienced a left frontal lobe infarct. MRI and MRA results have been discussed with her. We will be transferring her to a facility with neurosurgical capabilities. Admitting physician has been contacted and agrees with this transfer. Continue evaluation and treatment by cardiology and nephrology. Continue to treat her underlying metabolic abnormalities. We will continue to follow and make recommendations based on the above studies. I have performed a history and physical on the above patient. I have reviewed the above note, and agree.
[2017-11-13 14:42] LABS: Glucose,Whole Blood 153 mg/dL (75-99)
--- NOTE | 2017-11-13 15:00 | P.DS ---
Providers Date of admission: 11/12/17 01:59 Expected date of discharge: 11/13/17 (Transfer to [facility]) Attending physician: Rolando Angel Consults: 11/12/17 02:01 Consult Physician Routine Consulting Provider: Emmanuel Diane Consult Reason/Comments: tia, ams Do you want consulting provider notified?: Yes 11/12/17 09:53 Consult Physician Routine Consulting Provider: Lucas Diaz Consult Reason/Comments: TIA, Hx cardiac arrhythmia Do you want consulting provider notified?: Yes Primary care physician: Rolando Angel is attending Discharge summary: Transferred to have any for the hospital [place]. Stroke section, accepted by Dr. Abdullahi neurologist. I did dictate the discharge summary #[id number]. I did speak with her sister Luci Del Angel for number [phone]. With the transfer and the reason with the underlying results of the MRA and MRI MRA of the brain with and without contrast indicating abnormal signal within the left anterior frontal lobe in the distribution of the left anterior cerebral artery as well as occipital lobe bilaterally. Evidence of left frontal infarction. Scattered abnormality in the left occipital parietal region. Next they could not exclude dissection of the both internal carotid arteries extending to the middle cerebral arteries a lateral up onto occlusion of A1 and A2 segments of the anterior cerebral artery on the left side. Acute kidney injury improved with the underlying chronic kidney disease stage III. Underlying anemia with the hemoglobin 8, serum ferritin 74.4., Iron results is pending, reticulocyte count is pending. For evaluation of the anemia Patient has also PTH laboratory is pending and vitamin D 25-hydroxy, as well vitamin D 125 hydroxy still result is not available as [facility] Vital signs stable with blood pressure 145/69, pulse 64 regular Stable general condition for transfer. Plan - Discharge Summary New Discharge Prescriptions: No Action Simvastatin [Zocor] 40 mg PO HS Levothyroxine Sodium [Synthroid] 125 mcg PO DAILY Famotidine [Pepcid] 40 mg PO DAILY Atenolol [Tenormin] 50 tab PO DAILY Clopidogrel [Plavix] 75 mg PO DAILY Ergocalciferol (Vitamin D2) [Vitamin D2] 50,000 unit PO Q30D Lisinopril [Zestril] 30 mg PO DAILY Discharge Medication List Atenolol [Tenormin] 50 tab PO DAILY 08/31/15 [History] Clopidogrel [Plavix] 75 mg PO DAILY 08/31/15 [History] Famotidine [Pepcid] 40 mg PO DAILY 08/31/15 [History] Levothyroxine Sodium [Synthroid] 125 mcg PO DAILY 08/31/15 [History] Simvastatin [Zocor] 40 mg PO HS 08/31/15 [History] Ergocalciferol (Vitamin D2) [Vitamin D2] 50,000 unit PO Q30D 05/12/17 [History] Lisinopril [Zestril] 30 mg PO DAILY 11/12/17 [History] Follow up Appointment(s)/Referral(s): Rolando Angel MD [Primary Care Provider] - 1-2 days
[2017-11-13 16:56] LABS: Iron Saturation 2.38 (12.00-45.00)
--- NOTE | 2017-11-13 16:58 | DS ---
DISCHARGE SUMMARY Patient admitted to the hospital on the date of 11/12/[address] Rolando Angel, the admitting physician and PCP and currently will be transferred disposition to [facility], acute stroke team accepted by Dr. Abdullahi. FINAL DIAGNOSES: 1. 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 2. There is apparent occlusion in A1 and A2 segment of the anterior cerebral artery on the left side. 3. With MR of the brain, she has abnormal area of signals of the left anterior frontal lobe in distribution of the left anterior cerebral artery as well as occipital lobe bilaterally. No mass and no intracranial shift with the underlying conclusion, evidence of left frontal infarction and scatter abnormality in the left occipital parietal region represent the old area of infarction. HOSPITAL COURSE: Patient presented to the emergency room by Dr. Kolton Cohn DO and he admitted her through the emergency room and with the conclusion that she may have TIA. As he stated in his note is an 82-year-old female. She was stroke. Initial NIH score was 2 and patient was evaluated by stroke neurologist with a CT and CTA and did not show any acute finding and decision was made for neurologist over the robot note candidate for TPA. Subsequently, she was admitted to the hospital with the underlying strong suspicion of a TIA and consultation of neurologist in the facility and Dr. Diane did not see the patient, but his PA has been seeing the patient. 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 As patient vital sign was stable; however, during the admission, she was seen by Dr. Santoyo, nephrology and he was hydrating her, also investigating the anemia with her hemoglobin was ranging between 7.9 on November 11 and her kidney function was chronic kidney disease stage III, and she has been followed by Dr. Almonte, nephrology as outpatient. As patient stated that she had a small stroke. She can communicate; however, she had missing the word and expulsive speaking and could not combine the sentence in easy way. She is able to eat and swallow and she denied any bowel movement abnormalities. Patient also was seen by Cardiology and he indicating hypertension and history of arrhythmias. But she was conscious, alert x4 according to the emergency room. LABORATORY: On November 11 was indicating white count 6.8 with hemoglobin 7.9, and MCV 85.3, and platelet count 273. Her electrolytes also on November 11 was sodium 136, potassium 4.3, chloride 103, carbon dioxide 22, and BUN of 11 and creatinine was 1.4 with a estimated glomerular filtration rate for non- 36. Her sugar was 118 and calcium 7.7, and total bilirubin is 0.3, AST 21, ALT 15, and alk phos was 62. Her CK was 43 and CK-MB 0.7, and CK-MB index was 1.6. The PT was 9.9 and INR 1 and the PTT is 22.9. As mentioned admitted with the TIA impression. She had echocardiogram and the echocardiogram was indicating that resting bradycardia with ejection fraction of 55%-60% and borderline concentric left ventricular hypertrophy. Her atrium moderately dilated 34-39 mL/m2. She had mild mitral regurgitation, trace tricuspid regurgitation and the left ventricular systolic pressure was 11.24 mmHg and the pulmonary valve was fine, normal, as well as the pericardium was normal. Also as seen by Nephrology, Dr. Lucas on November 12 his conclusion that stated that she had mild nonoliguric acute kidney injury and except mostly prerenal. Her creatinine was 1.4 on admission and she did receive IV contrast on November 11 and which typically the produce the contrast induced nephropathy after 48 hours to 72 hours. Next, chronic kidney disease stage III, and her baseline 1.1 to 1.3, that is probably secondary to nephrosclerosis. She had hypertension with chronic kidney disease, anemia, possible iron deficiency. The laboratory for iron has been done; however, is sent out to [facility] and not available. Her serum ferritin; however, was 74. Her mental status on admission was no acute changes and the CT angiogram of the neck was no significant abnormalities. At that time they continue thinking of TIA. She had a CVA in 2009. At that time, they continued the IV fluid at 100 mL by the Nephrology. Also seen by the cardiology, Dr. Lucas Diaz who indicating in his note that assessment for TIA and chronic renal insufficiency, hypertension, history of cardiac arrhythmia, and he ordered the echocardiogram for evaluation of the left ventricular function. Currently, I did examine the patient today. PHYSICAL EXAM: Indicating that her vital signs, temperature was 99.2, pulse was 64, respiratory rate was 14, and her heart rate is regular sinus. Her blood pressure 145/69 with a mean 94. The HEENT, the head was normocephalic, atraumatic. Pupil was equal, reactive and she had mild subtle changes of the nasolabial fold to pulling to the side and the uvula midline. She had natural teeth. The tongue was normal. The neck was supple and they have bruits, bilateral and no lymphadenopathy. She had a scar on the neck for previous history of surgical thyroidectomy for sick thyroid about 8-10 years ago. She is on thyroid medication for life and we adjusted her thyroid today by cutting it down. The hearing was normal. The chest was clear to auscultation and percussion and the heart was regular sinus rhythm. No dysrhythmia. PMI in the fifth intercostal space outside midclavicular line with normal S1, S2. Positive murmur on the left sternal border, grade 2/6. The abdomen is soft. Positive bowel sounds. EXTREMITIES: No edema and positive pulses. However, the neurological exam as mentioned, she has delayed response to the question. She had facial asymmetry, mild, very subtle and as well as she had decreased deep tendon reflexes on the left side and of the upper extremities and the lower extremity with the Papinski was positive on the left side, then the right side; however, that was equivocal was questionable. No edema of the lower extremities, but she could not walk, prior to that before she come to the hospital she was able to walk. New note is patient is never , single. Her sister is taking care of her and/or the the POA and her name is Luci Del Angel and her phone #[phone]. With the patient currently laboratory on today lab. Her sodium 144, potassium 4.5, chloride 114, carbon dioxide 21. Her BUN is 9, creatinine was 1.15 with the estimated glomerular filtration rate for non- 45. Her glucose 94, calcium 8.1, serum ferritin 74.4, triglyceride 106, total cholesterol 100 and LDL 49. Her HDL is 30 and TSH was low, less than 0.015 and a free T4 was 2.21. For that reason, her thyroid has been changed and from 125-100 mcg of levothyroxine. With her blood pressure, we changed the blood pressure medication to 20 mg of lisinopril twice a day. Further order of laboratory, which is not available as it is sent out at [facility] and that was iron study as serum iron and total iron-binding capacity as to rule out iron deficiency as well as reticulocyte count, and lap tests supposedly to be done tomorrow for CBC with differential and BMP and retic count to clarify the issue of anemia with the final diagnosis as mentioned before. The patient accepted at [facility] by Dr. Abdullahi and they will be transferred to the acute stroke team and to be observed and further treatment according to the result. MMODL / IJN: [id number] /
[2017-11-13] MEDS ORDERED: LISINOPRIL 20 MG TAB PO SCH (21:00)
[2017-11-14] MEDS ORDERED: LEVOTHYROXINE 100 MCG TAB PO SCH (06:30)
--- NOTE | 2017-11-14 17:44 | EEG ---
ELECTROENCEPHALOGRAM REPORT DATE OF SERVICE: 11/13/2017. REASON FOR TESTING: Altered mental status. DESCRIPTION OF THE PROCEDURE: This EEG was performed using a 21 channel digital electroencephalograph, following international 10-20 system. DESCRIPTION OF THE RECORDING: From the beginning of the tracing, and with the patient's eyes closed, the background rhythm was mostly consisting of 9 Hz alpha frequency in the posterior occipital leads. No obvious asymmetry is seen. Photic stimulation was performed with a minimal driving response seen. No pathological waves were elicited. Hyperventilation was not performed. The patient remains awake throughout the tracing. No epileptiform discharges were seen. EKG lead showed a regular rate and rhythm. INTERPRETATION: This awake EEG can be considered within normal limits. There was no asymmetry seen. No epileptiform discharges were noticed. The absence of epileptiform discharges does not rule out the diagnosis of epilepsy; therefore clinical correlation is recommended. MMDELANEY / MOSES: [id number] /
[2017-11-28] MEDS ORDERED: ERGOCALCIFEROL 50,000 UNIT CAP PO SCH (12:00)
== END 2017-11-13 15:08 | disposition short-term general hospital (02) | DRG 64 ==
LOC: EC 22:51 → 6SEL 11-12 01:59
PROVIDERS: ADMIT Internal Medicine; ATTEND Internal Medicine
DX: I63.522 Cerebral infarction due to unspecified occlusion or stenosis of left anterior cerebral artery (principal); G93.49 Other encephalopathy; I77.71 Dissection of carotid artery; N17.9 Acute kidney failure, unspecified; R47.1 Dysarthria and anarthria; R29.720 NIHSS score 20; D50.9 Iron deficiency anemia, unspecified; E03.9 Hypothyroidism, unspecified; E78.5 Hyperlipidemia, unspecified; E83.52 Hypercalcemia; I13.10 Hypertensive heart and chronic kidney disease without heart failure, with stage 1 through stage 4 chronic kidney disease, or unspecified chronic kidney disease; K21.9 Gastro-esophageal reflux disease without esophagitis; M19.90 Unspecified osteoarthritis, unspecified site; N18.3 Chronic kidney disease, stage 3 (moderate); R47.01 Aphasia; R77.9 Abnormality of plasma protein, unspecified; R00.1 Bradycardia, unspecified; Z79.02 Long term (current) use of antithrombotics/antiplatelets; Z79.899 Other long term (current) drug therapy; Z86.73 Personal history of transient ischemic attack (TIA), and cerebral infarction without residual deficits; Z88.1 Allergy status to other antibiotic agents; Z88.5 Allergy status to narcotic agent; Z83.3 Family history of diabetes mellitus; Z80.3 Family history of malignant neoplasm of breast; Z80.0 Family history of malignant neoplasm of digestive organs; Z82.0 Family history of epilepsy and other diseases of the nervous system; W19.XXXA Unspecified fall, initial encounter
CPT/HCPCS: 36415; 70450; 70496; 70498; 70544; 70553; 80048; 80053; 80061; 82306; 82550; 82553; 82652; 82728; 83540; 83550; 83970; 84439; 84443; 84484; 85025; 85610; 85730; 93005; 93306; 95819; 99285

== ENCOUNTER 2017-12-17 12:53 | Inpatient (IN) | payer MEDICARE ==
[~2017-12-17 12:53] MED LIST: HUMAN PROTHROMBIN COMPLX 500 UNIT/16 ML VIAL IV ONE
[2017-12-17] MEDS ORDERED: SODIUM CHLORIDE 0.9% 500 ML IV STA (13:03)
[2017-12-17] MEDS ORDERED: PANTOPRAZOLE 40 MG/10 ML VIAL IVP STA (13:03)
--- NOTE | 2017-12-17 13:07 | ED ---
General Adult HPI - General Chief complaint: GI Bleed Stated complaint: weakness Time Seen by Provider: 12/17/17 12:55 Source: patient, RN notes reviewed Mode of arrival: ambulatory Limitations: no limitations - History of Present Illness Initial comments: This is an 82-year-old female presents to the emergency department after having had a stroke. Patient went through rehab and was home and since Wednesday has been feeling weak. According to family she's gotten weaker and weaker and today she was unable to get up out of her bed and wasn't responding at her baseline according to family. Patient was not complaining of anything but weakness. Family noted that the patient was not having any difficulty breathing there was no complaints of any chest pain or headache. There was no complaints of nausea vomiting or diarrhea. Family did note that today the patient was having some black stools. - Related Data Home Medications Medication Instructions Recorded Confirmed Atenolol [Tenormin] 50 mg PO DAILY 08/31/15 12/17/17 Clopidogrel [Plavix] 75 mg PO DAILY 08/31/15 12/17/17 Famotidine [Pepcid] 40 mg PO DAILY 08/31/15 12/17/17 Levothyroxine Sodium [Synthroid] 125 mcg PO DAILY 08/31/15 12/17/17 Simvastatin [Zocor] 40 mg PO HS 08/31/15 12/17/17 Ergocalciferol (Vitamin D2) 50,000 unit PO Q30D 05/12/17 12/17/17 [Vitamin D2] Lisinopril [Zestril] 30 mg PO DAILY 11/12/17 12/17/17 Apixaban [Eliquis] 5 mg PO BID 12/17/17 12/17/17 Pantoprazole Sodium [Protonix] 40 mg PO DAILY 12/17/17 12/17/17 Allergies Allergy/AdvReac Type Severity Reaction Status Date / Time codeine Allergy Rash/Hives Verified 12/17/17 13:02 ciprofloxacin AdvReac Diarrhea Verified 12/17/17 13:02 Review of Systems ROS Statement: Those systems with pertinent positive or pertinent negative responses have been documented in the HPI. ROS Other: All systems not noted in ROS Statement are negative. 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 Frequent bronchitis History of Any Multi-Drug Resistant Organisms: None Reported Past Surgical History: Adenoidectomy, Tonsillectomy Additional Past Surgical History / Comment(s): part of thyroid removed Past Anesthesia/Blood Transfusion Reactions: Unable to Obtain Additional Past Anesthesia/Blood Transfusion Reaction / Comment(s): patient states she had a hard time waking up after having anesthesia Past Psychological History: No Psychological Hx Reported Smoking Status: Never smoker Past Alcohol Use History: Unable to Obtain Past Drug Use History: Unable to Obtain - Past Family History Father Family Medical History: No Reported History Additional Family Medical History / Comment(s): parkinsons Mother History Unknown: Yes Family Medical History: Cancer, Diabetes Mellitus Additional Family Medical History / Comment(s): colon cancer Sister(s) Additional Family Medical History / Comment(s): breast cancer General Exam - General Exam Comments Initial Comments: GENERAL: Patient is well-developed and well-nourished. Patient is nontoxic and well- hydrated and is in no acute distress. Patient only responds occasionally to her name and answers yes or no only. Patient is very lethargic ENT: Neck is soft and supple. No significant lymphadenopathy is noted. Oropharynx is clear. Moist mucous membranes. Neck has full range of motion without eliciting any pain. EYES: The sclera were anicteric and conjunctiva were pink and moist. Extraocular movements were intact and pupils were equal round and reactive to light. Eyelids were unremarkable. PULMONARY: Unlabored respirations. Good breath sounds bilaterally. No audible rales rhonchi or wheezing was noted. CARDIOVASCULAR: There is a regular rate and rhythm without any murmurs gallops or rubs. ABDOMEN: Soft and nontender with normal bowel sounds. No palpable organomegaly was noted. There is no palpable pulsatile mass. SKIN: Patient's skin and conjunctiva are very pale NEUROLOGIC: Patient is alert and oriented times one. Cranial nerves II through XII are grossly intact. Motor and sensory are also intact. Normal speech, volume and content. Symmetrical smile. MUSCULOSKELETAL: Normal extremities with adequate strength and full range of motion. No lower extremity swelling or edema. No calf tenderness. LYMPHATICS: No significant lymphadenopathy is noted PSYCHIATRIC: Patient is not responding well enough to assess Limitations: no limitations Course Vital Signs 12/17/17 12/17/17 12/17/17 13:00 14:01 14:10 Temperature 97.0 F L 97.8 F Pulse Rate 150 H 69 68 Respiratory 16 18 18 Rate Blood Pressure 112/84 93/50 132/49 O2 Sat by Pulse 89 L 100 100 Oximetry 12/17/17 12/17/17 12/17/17 14:31 14:44 14:53 Temperature 97.3 F L 96.9 F L 97.6 F Pulse Rate 65 68 79 Respiratory 16 18 18 Rate Blood Pressure 83/42 108/46 129/58 O2 Sat by Pulse 100 100 98 Oximetry 12/17/17 15:23 Temperature 97.8 F Pulse Rate 75 Respiratory 18 Rate Blood Pressure 118/55 O2 Sat by Pulse 97 Oximetry Medical Decision Making - Medical Decision Making EKG shows normal sinus rhythm at 76 bpm SC interval is 170 QRS is 86 QT interval 412 QTC is 463. Patient's EKG shows some ST depression in precordial leads V4 V5 and V6 CT of the brain shows no acute abnormality. Chest x-ray shows no significant abnormality. Patient's hemoglobin came back at 3.7 I gave the patient packed red blood cells 2 in the emergency department. Patient's lactic acid is at 4.0 this is likely secondary to anemia - Lab Data Result diagrams: 12/17/17 13:44 12/17/17 13:44 Lab Results 12/17/17 12/17/17 12/17/17 Range/Units 13:04 13:44 13:44 WBC 23.4 H (3.8-10.6) k/uL RBC 1.58 L (3.80-5.40) m/uL Hgb 3.7 L* D (11.4-16.0) gm/dL Hct 13.4 L* (34.0-46.0) % MCV 84.9 (80.0-100.0) fL MCH 23.8 L (25.0-35.0) pg MCHC 28.0 L (31.0-37.0) g/dL RDW 15.5 (11.5-15.5) % Plt Count 648 H D (150-450) k/uL Neutrophils % 86 % Lymphocytes % 6 % Monocytes % 6 % Eosinophils % 0 % Basophils % 0 % Neutrophils # 20.2 H (1.3-7.7) k/uL Lymphocytes # 1.5 (1.0-4.8) k/uL Monocytes # 1.4 H (0-1.0) k/uL Eosinophils # 0.0 (0-0.7) k/uL Basophils # 0.1 (0-0.2) k/uL Hypochromasia Marked Poikilocytosis Moderate PT (9.0-12.0) sec INR (<1.2) APTT (22.0-30.0) sec Sodium (137-145) mmol/L Potassium (3.5-5.1) mmol/L Chloride (98-107) mmol/L Carbon Dioxide (22-30) mmol/L Anion Gap mmol/L BUN (7-17) mg/dL Creatinine (0.52-1.04) mg/dL Est GFR (CKD-EPI)AfAm (>60 ml/min/1.73 sqM) Est GFR (CKD-EPI)NonAf (>60 ml/min/1.73 sqM) Glucose (74-99) mg/dL POC Glucose (mg/dL) 195 H (75-99) mg/dL POC Glu Charger Operator Helper ID Ronaldo Braun Plasma Lactic Acid Librado (0.7-2.0) mmol/L Calcium (8.4-10.2) mg/dL Magnesium (1.6-2.3) mg/dL Total Bilirubin (0.2-1.3) mg/dL AST (14-36) U/L ALT (9-52) U/L Alkaline Phosphatase (38-126) U/L Total Creatine Kinase (30-135) U/L CK-MB (CK-2) (0.0-2.4) ng/mL CK-MB (CK-2) Rel Index Troponin I (0.000-0.034) ng/mL Total Protein (6.3-8.2) g/dL Albumin (3.5-5.0) g/dL Blood Type A Negative Blood Type Confirm Blood Type Recheck CABO Indicated Antibody Screen NEGATIVE Crossmatch See Detail Spec Expiration Date 12/20/2017 - 234312/17/17 12/17/17 12/17/17 Range/Units 13:44 13:44 13:44 WBC (3.8-10.6) k/uL RBC (3.80-5.40) m/uL Hgb (11.4-16.0) gm/dL Hct (34.0-46.0) % MCV (80.0-100.0) fL MCH (25.0-35.0) pg MCHC (31.0-37.0) g/dL RDW (11.5-15.5) % Plt Count (150-450) k/uL Neutrophils % % Lymphocytes % % Monocytes % % Eosinophils % % Basophils % % Neutrophils # (1.3-7.7) k/uL Lymphocytes # (1.0-4.8) k/uL Monocytes # (0-1.0) k/uL Eosinophils # (0-0.7) k/uL Basophils # (0-0.2) k/uL Hypochromasia Poikilocytosis PT 12.8 H (9.0-12.0) sec INR 1.4 H (<1.2) APTT 22.2 (22.0-30.0) sec Sodium 146 H (137-145) mmol/L Potassium 4.7 (3.5-5.1) mmol/L Chloride 119 H (98-107) mmol/L Carbon Dioxide 14 L (22-30) mmol/L Anion Gap 13 mmol/L BUN 97 H* (7-17) mg/dL Creatinine 2.20 H (0.52-1.04) mg/dL Est GFR (CKD-EPI)AfAm 24 (>60 ml/min/1.73 sqM) Est GFR (CKD-EPI)NonAf 21 (>60 ml/min/1.73 sqM) Glucose 127 H (74-99) mg/dL POC Glucose (mg/dL) (75-99) mg/dL POC Glu Charger Operator Helper ID Plasma Lactic Acid Librado (0.7-2.0) mmol/L Calcium 8.4 (8.4-10.2) mg/dL Magnesium 2.8 H (1.6-2.3) mg/dL Total Bilirubin 0.2 (0.2-1.3) mg/dL AST 16 (14-36) U/L ALT 26 (9-52) U/L Alkaline Phosphatase 62 (38-126) U/L Total Creatine Kinase 121 (30-135) U/L CK-MB (CK-2) 1.6 (0.0-2.4) ng/mL CK-MB (CK-2) Rel Index 1.3 Troponin I <0.012 (0.000-0.034) ng/mL Total Protein 5.4 L (6.3-8.2) g/dL Albumin 2.9 L (3.5-5.0) g/dL Blood Type Blood Type Confirm Blood Type Recheck Antibody Screen Crossmatch Spec Expiration Date 12/17/17 12/17/17 Range/Units 14:46 15:06 WBC (3.8-10.6) k/uL RBC (3.80-5.40) m/uL Hgb (11.4-16.0) gm/dL Hct (34.0-46.0) % MCV (80.0-100.0) fL MCH (25.0-35.0) pg MCHC (31.0-37.0) g/dL RDW (11.5-15.5) % Plt Count (150-450) k/uL Neutrophils % % Lymphocytes % % Monocytes % % Eosinophils % % Basophils % % Neutrophils # (1.3-7.7) k/uL Lymphocytes # (1.0-4.8) k/uL Monocytes # (0-1.0) k/uL Eosinophils # (0-0.7) k/uL Basophils # (0-0.2) k/uL Hypochromasia Poikilocytosis PT (9.0-12.0) sec INR (<1.2) APTT (22.0-30.0) sec Sodium (137-145) mmol/L Potassium (3.5-5.1) mmol/L Chloride (98-107) mmol/L Carbon Dioxide (22-30) mmol/L Anion Gap mmol/L BUN (7-17) mg/dL Creatinine (0.52-1.04) mg/dL Est GFR (CKD-EPI)AfAm (>60 ml/min/1.73 sqM) Est GFR (CKD-EPI)NonAf (>60 ml/min/1.73 sqM) Glucose (74-99) mg/dL POC Glucose (mg/dL) (75-99) mg/dL POC Glu Charger Operator Helper ID Plasma Lactic Acid Librado 4.8 H* (0.7-2.0) mmol/L Calcium (8.4-10.2) mg/dL Magnesium (1.6-2.3) mg/dL Total Bilirubin (0.2-1.3) mg/dL AST (14-36) U/L ALT (9-52) U/L Alkaline Phosphatase (38-126) U/L Total Creatine Kinase (30-135) U/L CK-MB (CK-2) (0.0-2.4) ng/mL CK-MB (CK-2) Rel Index Troponin I (0.000-0.034) ng/mL Total Protein (6.3-8.2) g/dL Albumin (3.5-5.0) g/dL Blood Type Blood Type Confirm A Negative Blood Type Recheck Antibody Screen Crossmatch Spec Expiration Date Critical Care Time Critical Care Time: Yes Total Critical Care Time: 35 Disposition Clinical Impression: Gastrointestinal hemorrhage, Anemia, Acute renal failure, Leukocytosis Disposition: ADMITTED IP TO THIS [facility] Time of Disposition: 15:31
[2017-12-17 13:08] LABS: Glucose,Whole Blood 195 mg/dL (75-99)
--- NOTE | 2017-12-17 13:50 | XR ---
EXAMINATION TYPE: XR chest 2V DATE OF EXAM: 12/17/2017 COMPARISON: Prior chest x-ray 09/01/2015 HISTORY: Difficulty breathing TECHNIQUE: Frontal and lateral views of the chest are obtained. FINDINGS: Exam is rotated and expiratory. Cardiac mediastinal silhouette, pulmonary vascularity and corazon within normal limits. Right hemidiaphragm remains elevated. There is no evident pneumothorax or pleural effusion. Difficult to exclude basilar atelectasis IMPRESSION: Expiratory rotated exam, , limited exam, difficult to exclude basilar atelectasis, early airspace disease seen on the lateral exam, follow-up as indicated.
--- NOTE | 2017-12-17 13:56 | CT ---
EXAMINATION TYPE: CT brain wo con DATE OF EXAM: 12/17/2017 COMPARISON: 11/11/2017 HISTORY: 82-year-old female with pain, Weakness TECHNIQUE: Examination was done in axial plane without intravenous contrast. Coronal and sagittal r econstructions performed. CT DLP: 1010.5 mGycm Automated exposure control for dose reduction was used. FINDINGS: Evolution of the patient's known inferior left frontal lobe infarct now with greater hypodensity. Ameya e interspersed preserved cortical tissue is present. No convincing evidence of acute intracranial hem orrhage. Old cortical infarct left parietal lobe. Prominent arthroscopic calcifications in the caroti d siphons. Mild generalized supratentorial volume loss. No herniation, hydrocephalus, or effacement of basal sub arachnoid cisterns. No mass effect or midline shift. Redemonstrated polyp or mucosal retention cyst along the floor of the left maxillary sinus. Mastoid a ir cells are well pneumatized. Slight leftward nasal septal deviation. Orbits and globes are intact. IMPRESSION: Evolving, now subacute to chronic inferior left frontal lobe infarct. Old left parietal cortical infa rct. No acute intracranial abnormality seen. If concern for subtle acute ischemia, follow-up CT or MR I.
[2017-12-17 14:13] LABS: Basophils # (A) 0.1 k/uL (0-0.2); Basophils % (A) 0 %; Eosinophils % (A) 0 %; Hypochromasia Marked; Lymphocytes # (A) 1.5 k/uL (1.0-4.8); Lymphocytes % (A) 6 %; MCH 23.8 pg (25.0-35.0); MCV 84.9 fL (80.0-100.0); Mean Platelet Volume 6.7; Monocytes # (A) 1.4 k/uL (0-1.0); Monocytes % (A) 6 %; Neutrophils # (A) 20.2 k/uL (1.3-7.7); Neutrophils % (A) 86 %; Platelet Count 648 k/uL (150-450); Poikilocytosis Moderate; RBC 1.58 m/uL (3.80-5.40); RDW 15.5 % (11.5-15.5); WBC 23.4 k/uL (3.8-10.6)
[2017-12-17 14:17] LABS: INR 1.4 (<1.2); Partial Thromboplastin Time 22.2 sec (22.0-30.0); Prothrombin Time 12.8 sec (9.0-12.0)
[2017-12-17 14:18] LABS: Albumin 2.9 g/dL (3.5-5.0); Calcium 8.4 mg/dL (8.4-10.2); Magnesium 2.8 mg/dL (1.6-2.3); Potassium 4.7 mmol/L (3.5-5.1); Total Bilirubin 0.2 mg/dL (0.2-1.3); Total Protein 5.4 g/dL (6.3-8.2)
[2017-12-17 14:25] LABS: HCT 13.4 % (34.0-46.0); HGB 3.7 gm/dL (11.4-16.0)
[2017-12-17 14:42] LABS: Creatine Kinase 121 U/L (30-135)
[2017-12-17 14:55] LABS: Creatine Kinase MB 1.6 ng/mL (0.0-2.4); Troponin I <0.012 ng/mL (0.000-0.034)
[2017-12-17] MEDS ORDERED: NALOXONE 0.4 MG/ML 1 ML VIAL IV PRN (15:31)
[2017-12-17 16:00] LABS: Appearance,Urine Clear (Clear); Bilirubin,Urine Negative (Negative); Blood,Urine Negative (Negative); Color,Urine Yellow; Glucose,Urine (UA) Negative (Negative); Ketones,Urine Negative (Negative); Leukocyte Esterase,Urine Negative (Negative); Nitrite,Urine Negative (Negative); Protein,Urine Negative (Negative); Specific Gravity,Urine 1.015 (1.001-1.035); Urobilinogen,Urine <2.0 mg/dL (<2.0)
[2017-12-17] MEDS ORDERED: LORazepam 2 MG/ML INJ IV STA (16:00)
[2017-12-17] MEDS ORDERED: Kcentra PER PHARMACY 1 EACH MISC MISCELLANE PRN (16:20)
[2017-12-17 16:40] LABS: ABG Base Excess -9.6 mmol/L; ABG HCO3 15 mmol/L (21-25); ABG PCO2 25 mmHg (35-45); ABG PO2 >400 mmHg (83-108); ABG TCO2 16 mmol/L (19-24)
[2017-12-17] MEDS ORDERED: EMPTY BAG 1 BAG with HUMAN PROTHROMBIN COMPLX 2,220 UNIT IV ONE (16:45)
[2017-12-17] MEDS ORDERED: SODIUM CHLORIDE 0.9% 500 ML IV ONE (17:32)
--- NOTE | 2017-12-17 17:51 | P.CNPUL ---
History of Present Illness Consult date: 12/17/17 Chief complaint: generalized weakness, profound anemia History of present illness: This is a 82-year-old female patient who came into the emergency department with massive GI bleed in hemoglobin level of 3.7. The patient has been progressively getting weak at home. She got weak to the point where she was unable to get out of bed and she wasn't responding to her family members. Family noted that the patient was having also black tarry stools. No hematemesis. No abdominal distention. No abdominal pain. No nausea or vomiting. No previous history of GI bleeding. No chest pain. No cough or sputum production. No reported difficulty breathing. This patient was recently discharged from the hospital on 11/13/2017 after being admitted for an acute CVA. MRI of the brain was done at that time indicating abnormal signal within the left anterior frontal lobe and distribution of the left anterior cerebral artery as well as the occipital artery bilaterally. During the same hospital stay, the patient had an acute kidney injury that improved. At time of her discharge from the hospital the patient's renal function has improved significantly and the creatinine was down to 1.1. Also her mental status improved following the CVA. Note that the patient has had previous CVAs in the past and she had been treated with TPA successfully. During this most hospitalization, the patient was not found to be a candidate for TPA. MRI of the brain showed evidence of a left pontine infarct as well as old areas of infarction involving the left occipital and parietal area. I briefly saw this patient in the emergency department. I was told that she had 2 bouts of seizures. These were witnessed by the emergency physician. FEV1 was given and bases were aborted. At this point in time the patient is postictal and very much lethargic. Blood gases was performed immediately after she arrived to the ICU and the patient's pH was 7.4 with a pCO2 of 25 and pO2 400 and this was done while the patient on 100% on a beta facemask. The patient is already receiving her first unit of packed RBC transfusion and she' ll be receiving a total of 4 units for a hemoglobin of 3.7. She has done Eliquis on outpatient basis for long-term and to coagulation and the patient will be receiving care [facility] knowing that she had another do not take bowel movement in the emergency department. Her current INR is 1.4 with a PT of 12.8 and a PTT of 22.2. The patient has already received a total of 1 L of IV fluids in the form normocytic in the emergency department only. 2 more liters to follow. In the ICU. Renal function is impaired in the patient's creatinine is up to 2.2. Is also a component of non-anion gap metabolic acidosis with a serum bicarbonate is down to 14. 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 Chronic renal failure, hypertension, hyperlipidemia, hypothyroidism, history of rheumatic fever, history of scarlet fever, History of Any Multi-Drug Resistant Organisms: None Reported Past Surgical History: Adenoidectomy, Tonsillectomy Additional Past Surgical History / Comment(s): part of thyroid removed Past Anesthesia/Blood Transfusion Reactions: Unable to Obtain Additional Past Anesthesia/Blood Transfusion Reaction / Comment(s): patient states she had a hard time waking up after having anesthesia Past Psychological History: No Psychological Hx Reported Smoking Status: Never smoker Past Alcohol Use History: Unable to Obtain Past Drug Use History: Unable to Obtain - Past Family History Father Family Medical History: No Reported History Additional Family Medical History / Comment(s): parkinsons Mother History Unknown: Yes Family Medical History: Cancer, Diabetes Mellitus Additional Family Medical History / Comment(s): colon cancer Sister(s) Additional Family Medical History / Comment(s): breast cancer Medications and Allergies Home Medications Medication Instructions Recorded Confirmed Type Atenolol [Tenormin] 50 mg PO DAILY 08/31/15 12/17/17 History Clopidogrel [Plavix] 75 mg PO DAILY 08/31/15 12/17/17 History Famotidine [Pepcid] 40 mg PO DAILY 08/31/15 12/17/17 History Levothyroxine Sodium [Synthroid] 125 mcg PO DAILY 08/31/15 12/17/17 History Simvastatin [Zocor] 40 mg PO HS 08/31/15 12/17/17 History Ergocalciferol (Vitamin D2) 50,000 unit PO Q30D 05/12/17 12/17/17 History [Vitamin D2] Lisinopril [Zestril] 30 mg PO DAILY 11/12/17 12/17/17 History Apixaban [Eliquis] 5 mg PO BID 12/17/17 12/17/17 History Pantoprazole Sodium [Protonix] 40 mg PO DAILY 12/17/17 12/17/17 History Allergies Allergy/AdvReac Type Severity Reaction Status Date / Time codeine Allergy Rash/Hives Verified 12/17/17 13:02 ciprofloxacin AdvReac Diarrhea Verified 12/17/17 13:02 Physical Exam Vitals: Vital Signs Temp Pulse Resp BP Pulse Ox 12/17/17 17:10 98.0 F 67 18 94/44 100 12/17/17 17:08 98.0 F 67 18 94/44 100 12/17/17 16:35 98.0 F 67 18 94/44 12/17/17 16:14 98.0 F 86 18 94/44 12/17/17 16:10 97.6 F 66 20 141/53 100 12/17/17 16:04 97.8 F 71 18 103/50 10 L 12/17/17 15:23 97.8 F 75 18 118/55 97 12/17/17 14:53 97.6 F 79 18 129/58 98 12/17/17 14:44 96.9 F L 68 18 108/46 100 12/17/17 14:31 97.3 F L 65 16 83/42 100 12/17/17 14:10 97.8 F 68 18 132/49 100 12/17/17 14:01 69 18 93/50 100 12/17/17 13:00 97.0 F L 150 H 16 112/84 89 L Intake and Output 12/17/17 12/17/17 12/17/17 06:59 14:59 22:59 Intake Total 0 1620 Balance 0 1620 Intake: Amount of Fluid Infused ( 1000 ml) Blood Product 0 620 Rc As-1 Unit 0 310 [id number] Rc As-3 Unit 310 [id number] Other: Weight 74.843 kg the patient is lethargic, pale, currently on 100% on a beta facemask, comfortable, withdrawing to painful stimuli in all 4 extremities. Head exam was generally normal. There was no scleral icterus or corneal arcus. Mucous membranes were moist. Neck was supple and without jugular venous distension, thyromegaly, or carotid bruits. Carotids were easily palpable bilaterally. There was no adenopathy.The patient has a left IJ triple-lumen catheter in place. Cardiac exam revealed the PMI to be normally situated and sized. The rhythm was regular and no extrasystoles were noted during several minutes of auscultation. The first and second heart sounds were normal and physiologic splitting of the second heart sound was noted. There were no murmurs, rubs, clicks, or gallops. Abdominal exam revealed normal bowel sounds. The abdomen was soft, non-tender, and without masses, organomegaly, or appreciable enlargement of the abdominal aorta. Extremities show diminished pulses otherwise there is no cyanosis or clubbing. No significant edema can be palpated. Neurologically, the patient is following some simple commands pH is able to move her left side. The right side is obviously weak involving the right upper and right lower extremity. He was at equal and reactive to light. No significant facial asymmetry has been noted. The motor function weakness is obviously seen on the right side. Results - Laboratory Findings CBC and BMP: 12/17/17 13:44 12/17/17 13:44 ABG ABG pH 7.40 (7.35-7.45) 12/17/17 16:44 ABG pCO2 25 mmHg (35-45) L 12/17/17 16:44 ABG pO2 >400 mmHg (83-108) H 12/17/17 16:44 ABG O2 Saturation 100.0 % (94-97) H 12/17/17 16:44 PT/INR, D-dimer PT 12.8 sec (9.0-12.0) H 12/17/17 13:44 INR 1.4 (<1.2) H 12/17/17 13:44 Abnormal lab findings: Abnormal Labs 12/17/17 12/17/17 12/17/17 13:04 13:44 13:44 WBC 23.4 H RBC 1.58 L Hgb 3.7 L* D Hct 13.4 L* MCH 23.8 L MCHC 28.0 L Plt Count 648 H D Neutrophils # 20.2 H Monocytes # 1.4 H PT INR ABG pCO2 ABG pO2 ABG HCO3 ABG Total CO2 ABG O2 Saturation Sodium Chloride Carbon Dioxide BUN Creatinine Glucose POC Glucose (mg/dL) 195 H Plasma Lactic Acid Librado Magnesium Total Protein Albumin Crossmatch See Detail 12/17/17 12/17/17 12/17/17 13:44 13:44 14:46 WBC RBC Hgb Hct MCH MCHC Plt Count Neutrophils # Monocytes # PT 12.8 H INR 1.4 H ABG pCO2 ABG pO2 ABG HCO3 ABG Total CO2 ABG O2 Saturation Sodium 146 H Chloride 119 H Carbon Dioxide 14 L BUN 97 H* Creatinine 2.20 H Glucose 127 H POC Glucose (mg/dL) Plasma Lactic Acid Librado 4.8 H* Magnesium 2.8 H Total Protein 5.4 L Albumin 2.9 L Crossmatch 12/17/17 16:44 WBC RBC Hgb Hct MCH MCHC Plt Count Neutrophils # Monocytes # PT INR ABG pCO2 25 L ABG pO2 >400 H ABG HCO3 15 L ABG Total CO2 16 L ABG O2 Saturation 100.0 H Sodium Chloride Carbon Dioxide BUN Creatinine Glucose POC Glucose (mg/dL) Plasma Lactic Acid Librado Magnesium Total Protein Albumin Crossmatch - Diagnostic Findings Chest x-ray: image reviewed Assessment and Plan Plan: assessment 1 acute GI bleed likely of an upper GI source. The patient presented with melanotic stools. The patient has been maintained on Plavix. I'm not sure if she was taken Eliquis. Discharge medication list from her most recent hospitalization does not include Eliquis. However it is on her admission papers from home. Coagulation profile was checked. The patient's hemoglobin was 3.7, admission and currently she is being resuscitated 2 profound anemia with a hemoglobin of 3.7 secondary to GI blood loss 3 acute on top of chronic renal injury. Creatinine is up to 2.2, likely secondary to intravascular volume depletion and hypovolemic shock 4 new onset seizure activity, currently in a postictal state 5 recent hospitalization for left anterior cerebral artery distribution CVAinvolving the left frontal lobe. The patient has a right-sided weakness 6 history of old CVA involving the occipital lobes and the patient has received thrombolytics in the past 7hypothyroidism 8 hypertension 9 hyperlipidemia 10history of rheumatic fever 11 history of scarlet fever CHARLIE A triple-lumen catheter-inserted. An arterial line catheter inserted. If Eliquis intake is confirmed we'll proceed with K centra treatment. We will receive a total of 4units of RBC. We'll give the patient a total of 2 L of normal saline immediately. We'll check hemoglobin following the transfusion and decided accordingly. We'll put the patient IV Protonix. We'll consult GI. Stop Plavix for now. keep nothing by mouth. Neurology consultation regarding the new onset seizure. Change Synthroid to IV 75 g daily. Rest of the medication placed on hold. Condition is critical. Blood gases was checked. We'll hold off intubation at this point in time. The patient is still oxygenating and ventilating well. We'll continue to follow make further recommendation. Condition is critical at this point in time.
--- NOTE | 2017-12-17 18:11 | XR ---
EXAMINATION TYPE: XR chest 1V portable DATE OF EXAM: 12/17/2017 COMPARISON: 12/17/2017 HISTORY: Check line placement TECHNIQUE: Single frontal view of the chest is obtained. FINDINGS: There is left-sided central venous catheter with the tip over the right atrium. The lungs are clear. There is no heart failure. There is no pneumothorax. There are chest leads. IMPRESSION: No active cardiopulmonary disease. Heart and lungs not significantly different than last exam.
--- NOTE | 2017-12-17 18:21 | OP ---
OPERATIVE REPORT INSERTION OF TRIPLE-LUMEN CATHETER: PREOPERATIVE DIAGNOSIS: Acute gastrointestinal bleed. POSTOPERATIVE DIAGNOSIS: Acute gastrointestinal bleed. SITE OF INSERTION: Left IJ. INDICATION Hemodynamic monitoring/Intravenous access. A time-out was completed verifying correct patient, procedure, site, positioning, and implant(s) or special equipment if applicable. The patient was placed in a dependent position appropriate for triple lumen catheter placement based on the vein to be cannulated. The patient's left neck was prepped and draped in sterile fashion. 1% Lidocaine was used to anesthetize the surrounding skin area. A triple lumen 9F Cordis catheter was introduced into the internal jugular vein using Seldinger technique. The catheter was threaded smoothly over the guide wire and appropriate blood return was obtained. Each lumen of the catheter was evacuated of air and flushed with sterile saline. The catheter was then sutured in place to the skin and a sterile dressing applied. Perfusion to the extremity distal to the point of catheter insertion was checked and found to be adequate. There were no bedside complications or bleeding. No pneumothorax. MMODL / IJN: [id number] /
--- NOTE | 2017-12-17 18:27 | OP ---
OPERATIVE REPORT ARTERIAL LINE PLACEMENT: INDICATIONS: Hemodynamic monitoring. A time-out was completed verifying correct patient, procedure, site, positioning, and implant(s) or special equipment if applicable. Jerry's test was performed to ensure adequate perfusion. The patient's right groin was prepped and draped in sterile fashion. 1% Lidocaine was used to anesthetize the area. An 18G Arrow arterial line was introduced into the femoral artery. The catheter was threaded over the guide wire and the needle was removed with appropriate pulsatile blood return. Blood loss was minimal. The catheter was then sutured in place to the skin and a sterile dressing applied. Perfusion to the extremity distal to the point of catheter insertion was checked and found to be adequate. The patient tolerated the procedure well and there were no bedside complications or bleeding. MMODL / IJN: [id number] /
[2017-12-17] MEDS: SODIUM CHLORIDE 0.9% 1,000 ML IV SCH ×3 (18:54→20:45)
[2017-12-17 19:00] LABS: Glucose,Whole Blood 138 mg/dL (75-99)
--- NOTE | 2017-12-17 19:22 | P.CONS ---
History of Present Illness - Reason for Consult Consult date: 12/17/17 GI bleeding and anemia. - History of Present Illness The patient is an 82-year-old female who presented to the emergency room because of weakness that has progressed over the last several days. According to her sister, the patient had maroon-colored bowel movement this morning. She was found to have profound anemia with a hemoglobin of 3.7. The patient has history of recent CVA and was discharged from [facility] to rehab unit at [facility] then was discharged home last week. The patient had seizures in the emergency room and at the time of my visit with her in the intensive care unit she was still obtunded possibly any postictal state and according to her family she has not had any hematemesis. She had no prior bleeding until this morning. She has been taking Plavix, eliquis as well as aspirin. The patient is receiving the third unit of packed red blood cells at this time. And according to her nurse, she has passed a brown bowel movement in the intensive care unit with no evidence of active bleeding. 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 Chronic renal failure, hypertension, hyperlipidemia, hypothyroidism, history of rheumatic fever, history of scarlet fever, History of Any Multi-Drug Resistant Organisms: None Reported Past Surgical History: Adenoidectomy, Tonsillectomy Additional Past Surgical History / Comment(s): part of thyroid removed Past Anesthesia/Blood Transfusion Reactions: Unable to Obtain Additional Past Anesthesia/Blood Transfusion Reaction / Comm: patient states she had a hard time waking up after having anesthesia Past Psychological History: No Psychological Hx Reported Smoking Status: Never smoker Past Alcohol Use History: Unable to Obtain Past Drug Use History: Unable to Obtain - Past Family History Father Family Medical History: No Reported History Additional Family Medical History / Comment(s): parkinsons Mother History Unknown: Yes Family Medical History: Cancer, Diabetes Mellitus Additional Family Medical History / Comment(s): colon cancer Sister(s) Additional Family Medical History / Comment(s): breast cancer Medications and Allergies Home Medications Medication Instructions Recorded Confirmed Type Atenolol [Tenormin] 50 mg PO DAILY 08/31/15 12/17/17 History Clopidogrel [Plavix] 75 mg PO DAILY 08/31/15 12/17/17 History Famotidine [Pepcid] 40 mg PO DAILY 08/31/15 12/17/17 History Levothyroxine Sodium [Synthroid] 125 mcg PO DAILY 08/31/15 12/17/17 History Simvastatin [Zocor] 40 mg PO HS 08/31/15 12/17/17 History Ergocalciferol (Vitamin D2) 50,000 unit PO Q30D 05/12/17 12/17/17 History [Vitamin D2] Lisinopril [Zestril] 30 mg PO DAILY 11/12/17 12/17/17 History Apixaban [Eliquis] 5 mg PO BID 12/17/17 12/17/17 History Pantoprazole Sodium [Protonix] 40 mg PO DAILY 12/17/17 12/17/17 History Allergies Allergy/AdvReac Type Severity Reaction Status Date / Time codeine Allergy Rash/Hives Verified 12/17/17 13:02 ciprofloxacin AdvReac Diarrhea Verified 12/17/17 13:02 Physical Exam Vitals: Vital Signs Temp Pulse Resp BP Pulse Ox 12/17/17 18:49 98.3 F 69 18 97/33 100 12/17/17 18:30 67 26 H 82/33 100 12/17/17 18:15 67 55 H 82/33 100 12/17/17 18:09 98.3 F 66 22 77/26 100 12/17/17 18:06 98.3 F 70 24 82/28 99 12/17/17 18:05 97 12/17/17 18:00 68 31 H 82/33 100 12/17/17 17:45 68 23 100 12/17/17 17:30 75 23 86/35 100 12/17/17 17:15 94.9 F L 74 23 90/43 100 12/17/17 17:10 98.0 F 67 18 94/44 100 12/17/17 17:08 98.0 F 67 18 94/44 100 12/17/17 17:01 74 12/17/17 16:35 98.0 F 67 18 94/44 12/17/17 16:14 98.0 F 86 18 94/44 12/17/17 16:10 97.6 F 66 20 141/53 100 12/17/17 16:04 97.8 F 71 18 103/50 10 L 12/17/17 15:23 97.8 F 75 18 118/55 97 12/17/17 14:53 97.6 F 79 18 129/58 98 12/17/17 14:44 96.9 F L 68 18 108/46 100 12/17/17 14:31 97.3 F L 65 16 83/42 100 12/17/17 14:10 97.8 F 68 18 132/49 100 12/17/17 14:01 69 18 93/50 100 12/17/17 13:00 97.0 F L 150 H 16 112/84 89 L Intake and Output 12/17/17 12/17/17 12/17/17 06:59 14:59 22:59 Intake Total 0 1930 Balance 0 1930 Intake: Amount of Fluid Infused ( 1000 ml) Blood Product 0 930 Rc As-1 Unit 0 310 [id number] Rc As-3 Unit 310 [id number] Rc As-3 Unit 310 [id number] Rc Pheresis As-3 Unit 0 [id number] Other: Weight 74.843 kg ABP, PAP, CO, CI - Last 8 Hours Arterial Blood Pressure 72/23 Arterial Blood Pressure 88/29 Arterial Blood Pressure 82/30 Arterial Blood Pressure 76/29 Arterial Blood Pressure 127/49 General: Appeared stated age, obtunded in no acute distress Head and neck: Normocephalic and atraumatic, conjunctivae pink and sclerae not icteric, mucous membranes moist and pink. No masses in the neck or tracheal shift Lungs: No dullness to percussion, clear to auscultation Heart: Regular, no abnormal sounds, no murmurs, gallops or friction rubs Abdomen: Soft, no masses or organomegalies or tenderness. Bowel sounds present Extremities: No clubbing, cyanosis or edema Neurologic exam: Obtunded but no gross sensory or motor deficits Results CBC & Chem 7: 12/17/17 13:44 12/17/17 13:44 Labs: Abnormal Lab Results - Last 24 Hours (Table) 12/17/17 12/17/17 12/17/17 Range/Units 13:04 13:44 13:44 WBC 23.4 H (3.8-10.6) k/uL RBC 1.58 L (3.80-5.40) m/uL Hgb 3.7 L* D (11.4-16.0) gm/dL Hct 13.4 L* (34.0-46.0) % MCH 23.8 L (25.0-35.0) pg MCHC 28.0 L (31.0-37.0) g/dL Plt Count 648 H D (150-450) k/uL Neutrophils # 20.2 H (1.3-7.7) k/uL Monocytes # 1.4 H (0-1.0) k/uL PT (9.0-12.0) sec INR (<1.2) ABG pCO2 (35-45) mmHg ABG pO2 (83-108) mmHg ABG HCO3 (21-25) mmol/L ABG Total CO2 (19-24) mmol/L ABG O2 Saturation (94-97) % Sodium (137-145) mmol/L Chloride (98-107) mmol/L Carbon Dioxide (22-30) mmol/L BUN (7-17) mg/dL Creatinine (0.52-1.04) mg/dL Glucose (74-99) mg/dL POC Glucose (mg/dL) 195 H (75-99) mg/dL Plasma Lactic Acid Librado (0.7-2.0) mmol/L Magnesium (1.6-2.3) mg/dL Total Protein (6.3-8.2) g/dL Albumin (3.5-5.0) g/dL Crossmatch See Detail 12/17/17 12/17/17 12/17/17 Range/Units 13:44 13:44 14:46 WBC (3.8-10.6) k/uL RBC (3.80-5.40) m/uL Hgb (11.4-16.0) gm/dL Hct (34.0-46.0) % MCH (25.0-35.0) pg MCHC (31.0-37.0) g/dL Plt Count (150-450) k/uL Neutrophils # (1.3-7.7) k/uL Monocytes # (0-1.0) k/uL PT 12.8 H (9.0-12.0) sec INR 1.4 H (<1.2) ABG pCO2 (35-45) mmHg ABG pO2 (83-108) mmHg ABG HCO3 (21-25) mmol/L ABG Total CO2 (19-24) mmol/L ABG O2 Saturation (94-97) % Sodium 146 H (137-145) mmol/L Chloride 119 H (98-107) mmol/L Carbon Dioxide 14 L (22-30) mmol/L BUN 97 H* (7-17) mg/dL Creatinine 2.20 H (0.52-1.04) mg/dL Glucose 127 H (74-99) mg/dL POC Glucose (mg/dL) (75-99) mg/dL Plasma Lactic Acid Librado 4.8 H* (0.7-2.0) mmol/L Magnesium 2.8 H (1.6-2.3) mg/dL Total Protein 5.4 L (6.3-8.2) g/dL Albumin 2.9 L (3.5-5.0) g/dL Crossmatch 12/17/17 Range/Units 16:44 WBC (3.8-10.6) k/uL RBC (3.80-5.40) m/uL Hgb (11.4-16.0) gm/dL Hct (34.0-46.0) % MCH (25.0-35.0) pg MCHC (31.0-37.0) g/dL Plt Count (150-450) k/uL Neutrophils # (1.3-7.7) k/uL Monocytes # (0-1.0) k/uL PT (9.0-12.0) sec INR (<1.2) ABG pCO2 25 L (35-45) mmHg ABG pO2 >400 H (83-108) mmHg ABG HCO3 15 L (21-25) mmol/L ABG Total CO2 16 L (19-24) mmol/L ABG O2 Saturation 100.0 H (94-97) % Sodium (137-145) mmol/L Chloride (98-107) mmol/L Carbon Dioxide (22-30) mmol/L BUN (7-17) mg/dL Creatinine (0.52-1.04) mg/dL Glucose (74-99) mg/dL POC Glucose (mg/dL) (75-99) mg/dL Plasma Lactic Acid Librado (0.7-2.0) mmol/L Magnesium (1.6-2.3) mg/dL Total Protein (6.3-8.2) g/dL Albumin (3.5-5.0) g/dL Crossmatch Assessment and Plan Assessment: Profound anemia likely on the basis of upper GI bleeding especially in light of her history and current medications. Peptic ulcer disease is the more likely possibility. Other etiology, including malignancy should be kept in mind in her age group. Plan: Agree with your current management we'll continue PPI and blood transfusions. I discussed at length with her sister who is her power of consumer attorney and other family members. Since she is not actively bleeding at this time, and because of her mental status and the new onset seizure disorder, I would await neurology input prior to proceeding with upper endoscopy. According to her sister, the patient has taken her medications this morning including aspirin and Plavix and eliquis. Waiting another 24-48 hours before proceeding with the upper endoscopy would put us farther out from the time of the last dose of those medications. I will reevaluate her in the morning and discuss her care with you and continue to follow with you with interest.
--- NOTE | 2017-12-17 20:42 | HP ---
HISTORY AND PHYSICAL CHIEF COMPLAINT: Weakness. HISTORY OF PRESENT ILLNESS: This 82-year-old female was brought into the emergency room by the family because the patient was unable to get out of bed, extremely weak. The patient at the time of my evaluation up in the ICU is being transferred from the ER to the ICU and is very unresponsive. Basically she responds to some painful stimulus. Apparently she did respond to her sister's calling her by opening her eyes, but despite significant stimulus, the patient really does not open her eyes much. She tries to fight when I try to open her eyelids for examination of the pupils. The patient in the emergency room was noted to be anemic with hemoglobin of 3.7. The patient was transfused 2 units of packed red cells in the ER and is in the process of receiving the fourth unit. The patient was fairly hypotensive and hypothermic in the emergency room. The patient was seen by Dr. Carrion from the critical care services in the ER. She has been brought up here to the ICU and subsequently a central line has been placed, an arterial line in place. The patient's blood pressure is in the 120s at present. Rhythm is regular, bradycardic. The patient's vital signs in the emergency room revealed a temperature of 97, pulse of 150, respirations 16, blood pressure 112/84, pulse ox of 89% on room air. Subsequently patient's temperature had gone down to 96.9 axillary, 97.8 oral. The patient's heart rate subsequently has been within normal limits. Respiratory rate at one time was reported as 55; otherwise 16 to 18 rate. Blood pressure was down to 83/42, at one time 77/26 in the emergency room. Oxygen saturation was 100% on 4 L. The patient had a blood gas done which revealed a pH of 7.40, pCO2 of 25, PO2 greater than 400 on 100% FiO2. In the emergency room patient's laboratory evaluation showed sodium high at 146, chloride high at 119, CO2 content down to 14 with an anion gap of 13, BUN 97, creatinine 2.20. Lactic acid was 4.8. Urine specific gravity was 1.015. Albumin was 2.9. History is not obtainable from the patient. Apparently data was obtained from records from the ER, and I see nurses' information from family when they were visiting reveals that the patient was recently hospitalized at [facility], where an MRI suggested that she had a stroke. In view of that, she was transferred to [facility], from where she returned back to [facility]. She was discharged from [facility] a few days ago, and ever since she has been at home, sequentially getting weaker. Apparently the sister or somebody inform the doctors in the ER today that the patient did have black-colored stools. The patient has been on Eliquis. 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 The patient was subsequently transferred to [facility]. The patient's MRI of the brain with and without contrast indicated abnormal signal within the left anterior frontal lobe in the distribution of the left anterior cerebral artery as well as occipital lobe bilaterally with evidence of a left frontal infarction. This would have been on 11/13/2017. The MRI had suggested evidence of a left frontal infarct and previous old infarcts in bilateral occipital parietal areas. 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 The patient has a history of hypothyroidism, degenerative arthritis. No history of any reported lung or liver disease. No history of any myocardial infarction. CVA as mentioned above. PAST SURGICAL HISTORY: Significant for tonsils and adenoids and history of partial thyroidectomy. PERSONAL HISTORY: Nonsmoker. No alcohol. ALLERGIES: CODEINE and CIPRO. Rash with codeine and diarrhea with Cipro. FAMILY MEDICAL HISTORY: Significant for arthritis and heart disease. MEDICATIONS AT HOME: 1. Zocor 40 mg daily. 2. Protonix 40 mg daily. 3. Zestril 30 mg daily. 4. Levothyroxine 125 mcg daily. 5. Pepcid 40 mg daily. 6. Vitamin D 50,000 units . 7. Plavix 75 mg daily. 8. Tenormin 50 mg daily. 9. Eliquis 5 mg b.i.d. SOCIAL HISTORY: Apparently lives with sister. PHYSICAL EXAMINATION: [id number] female who appears younger than her stated age at present. No distress. Obtunded with no verbal response. Patient tends to move her left arm with some shakiness but has evidence of generalized stiffness. HEENT: Normocephalic. Pupils are midsize, reactive. Nostrils clear. Oral cavity appears dry. NECK: Decreased range of motion. Neck reveals no JVD, carotid bruits or thyromegaly. CHEST: Clear to auscultation. CARDIAC: Distant heart sounds S1, S2 with no gallops. Systolic murmur 2/6, left sternal border. ABDOMEN: Soft. Bowel sounds present. Extremities reveal no edema. Good pulse on the right. Decreased pedal pulses. Neurologically obtunded. Generalized increased muscle tone. Plantars are equivocal. LABORATORY ASSESSMENT: CBC revealed white count 23,400, hemoglobin 3.7, platelets 648. INR was 1.4. Sodium 146, potassium 4.7, chloride 119, CO2 content 14. BUN 97, creatinine 2.2. Glucose 127,. Magnesium 2.8. Troponin is negative. Albumin 2.9. Lactic acid 4.8. Urinalysis unremarkable. ASSESSMENT: 1. Gastrointestinal bleeding. Source and site undetermined. 2. Severe anemia. 3. Recent cerebrovascular accident. 4. Patient on anticoagulation with Plavix and Eliquis. 5. History of hypertension. 6. Acute on chronic renal failure with predominant renal azotemia. 7. Metabolic acidosis with lactic acidosis and renal failure. 8. Hypovolemic shock. 9. Decreased nutritional status. PLAN: Continue present medical regimen with IV fluids, p.r.n. blood transfusion. The patient is scheduled to be seen by GI. May require further evaluation with EGD. Patient obviously will be off anticoagulants. MMODL / IJN: [id number] /
[2017-12-17 22:06] LABS: Glucose,Whole Blood 122 mg/dL (75-99)
[2017-12-17 22:13] LABS: Basophils % (A) 0 %; Eosinophils % (A) 0 %; HCT 26.1 % (34.0-46.0); Hypochromasia Slight; Lymphocytes # (A) 1.6 k/uL (1.0-4.8); Lymphocytes % (A) 9 %; MCH 26.5 pg (25.0-35.0); MCHC 32.1 g/dL (31.0-37.0); MCV 82.7 fL (80.0-100.0); Mean Platelet Volume 8.8; Monocytes # (A) 0.9 k/uL (0-1.0); Monocytes % (A) 5 %; Neutrophils # (A) 15.9 k/uL (1.3-7.7); Neutrophils % (A) 85 %; Platelet Count 390 k/uL (150-450); Poikilocytosis Moderate; RBC 3.16 m/uL (3.80-5.40); RDW 14.9 % (11.5-15.5); WBC 18.6 k/uL (3.8-10.6)
[2017-12-17 22:14] LABS: HGB 8.4 gm/dL (11.4-16.0)
[2017-12-18 04:05] LABS: Calcium 6.9 mg/dL (8.4-10.2); Magnesium 2.4 mg/dL (1.6-2.3); Potassium 3.6 mmol/L (3.5-5.1)
[2017-12-18 04:08] LABS: Basophils % (A) 0 %; Eosinophils # (A) 0.1 k/uL (0-0.7); Eosinophils % (A) 0 %; HCT 25.4 % (34.0-46.0); HGB 8.2 gm/dL (11.4-16.0); Hypochromasia Moderate; Lymphocytes # (A) 1.5 k/uL (1.0-4.8); Lymphocytes % (A) 10 %; MCH 26.6 pg (25.0-35.0); MCHC 32.1 g/dL (31.0-37.0); Mean Platelet Volume 8.3; Monocytes # (A) 0.9 k/uL (0-1.0); Monocytes % (A) 6 %; Neutrophils # (A) 12.8 k/uL (1.3-7.7); Neutrophils % (A) 82 %; Platelet Count 379 k/uL (150-450); Poikilocytosis Moderate; RBC 3.06 m/uL (3.80-5.40); RDW 15.3 % (11.5-15.5); WBC 15.6 k/uL (3.8-10.6)
[2017-12-18] MEDS ORDERED: Potassium Replacement Protocol 1 EACH MISC MISCELLANE PRN ×2 (04:09→16:12)
[2017-12-18] MEDS: POTASSIUM CHLORIDE 10 MEQ in WATER FOR INJECTION 1 100ML.BAG IVPB SCH ×4 (04:17→19:06)
[2017-12-18 04:39] LABS: Anisocytosis (M) Present; Polychromasia Present
--- NOTE | 2017-12-18 06:52 | XR ---
EXAMINATION TYPE: XR chest 1V DATE OF EXAM: 12/18/2017 HISTORY: SOB. REFERENCE: Previous study dated 12/17/2017. FINDINGS: The left internal jugular catheter remains in place. Its tip is in the right atrium. Heart size is upper limits of normal. The lungs are clear. Pleural spaces are clear. IMPRESSION: BORDERLINE CARDIOMEGALY.
[2017-12-18] MEDS: PANTOPRAZOLE 40 MG/10 ML VIAL IVP SCH (09:32)
[2017-12-18] MEDS: LEVOTHYROXINE IVP 100 MCG/5 ML VIAL IV SCH (09:33)
[2017-12-18] MEDS: SODIUM CHLORIDE 0.45% 1,000 ML IV SCH (11:12)
[2017-12-18] MEDS: SODIUM CHLORIDE 0.9% 1,000 ML IV SCH (11:13)
--- NOTE | 2017-12-18 11:26 | P.PN ---
Subjective Progress Note Date: 12/18/17 This is a 82-year-old female patient who came into the emergency department with massive GI bleed in hemoglobin level of 3.7. The patient has been progressively getting weak at home. She got weak to the point where she was unable to get out of bed and she wasn't responding to her family members. Family noted that the patient was having also black tarry stools. No hematemesis. No abdominal distention. No abdominal pain. No nausea or vomiting. No previous history of GI bleeding. No chest pain. No cough or sputum production. No reported difficulty breathing. This patient was recently discharged from the hospital on 11/13/2017 after being admitted for an acute CVA. MRI of the brain was done at that time indicating abnormal signal within the left anterior frontal lobe and distribution of the left anterior cerebral artery as well as the occipital artery bilaterally. During the same hospital stay, the patient had an acute kidney injury that improved. At time of her discharge from the hospital the patient's renal function has improved significantly and the creatinine was down to 1.1. Also her mental status improved following the CVA. Note that the patient has had previous CVAs in the past and she had been treated with TPA successfully. During this most hospitalization, the patient was not found to be a candidate for TPA. MRI of the brain showed evidence of a left pontine infarct as well as old areas of infarction involving the left occipital and parietal area. I briefly saw this patient in the emergency department. I was told that she had 2 bouts of seizures. These were witnessed by the emergency physician. FEV1 was given and bases were aborted. At this point in time the patient is postictal and very much lethargic. Blood gases was performed immediately after she arrived to the ICU and the patient's pH was 7.4 with a pCO2 of 25 and pO2 400 and this was done while the patient on 100% on a beta facemask. The patient is already receiving her first unit of packed RBC transfusion and she' ll be receiving a total of 4 units for a hemoglobin of 3.7. She has done Eliquis on outpatient basis for long-term and to coagulation and the patient will be receiving care [facility] knowing that she had another do not take bowel movement in the emergency department. Her current INR is 1.4 with a PT of 12.8 and a PTT of 22.2. The patient has already received a total of 1 L of IV fluids in the form normocytic in the emergency department only. 2 more liters to follow. In the ICU. Renal function is impaired in the patient's creatinine is up to 2.2. Is also a component of non-anion gap metabolic acidosis with a serum bicarbonate is down to 14. On today's evaluation of 12/18/2017 I'm seeing this patient in follow-up in the intensive care unit. She is fortunately awake and much more alert compared to yesterday. It was noted that the patient's right side is extremely weak specially the right lower extremity and there is significant weakness in the right upper extremity and there is also facial weakness. Going back to the records, it was obvious that the patient was having issues with stroke along the left frontal lobe. I also noted that the MRI and MRA of the brain that was done back then raises the suspicion for carotid artery dissection. For that reason the patient was transferred to [facility] which she was evaluated and she was placed on Eliquis. The patient is currently off Eliquis pH is off anticoagulation based on her recent GI bleeding. I also noted the results of the CAT scan of the brain that showed a subacute stroke. No seizure activity has been noted. Discussed the case with the neurologist. When the process of obtaining the records from [facility] regarding the events that occurred there. Would also ordering another MRI/MRA of the brain based on the suspicion for previous dissection of the carotids. Meanwhile, the patient is on no antiepileptics pH is awake and alert. She received packed RBC transfusion and blood. Her hemoglobin is improved significantly. She is producing adequate amount of urine output. She is hemodynamically stable and she is on no pressors. Her hemoglobin is up to 8.2. Her creatinine is down to 1.7. The patient does not have any ongoing melanotic stools. In fact her stool is changed to brow. GI is on the case for now. No other significant events overnight. Objective - Vital Signs Vital signs: Vital Signs Temp 97.8 F 12/18/17 08:00 Pulse 58 L 12/18/17 11:00 Resp 20 12/18/17 11:00 BP 109/44 12/18/17 11:00 Pulse Ox 100 12/18/17 11:00 Intake & Output 12/17/17 12/18/17 12/18/17 18:59 06:59 18:59 Intake Total 3240 2420 375 Output Total 35 760 295 Balance 3205 1660 80 Weight 74.843 kg 64.3 kg Intake: IV 1000 1800 375 Sodium Chloride 0.9% 1, 750 375 000 ml @ 75 mls/hr IV . [id number] [facility] Rx#:[id number] Sodium Chloride 0.9% 500 1000 1050 ml @ 999 mls/hr IV .Q31M ONE Rx#:[id number] Amount of Fluid Infused ( 1000 ml) Blood Product 1240 620 Rc As-1 Unit 310 [id number] Rc As-3 Unit 310 [id number] Rc As-3 Unit 310 [id number] Rc Pheresis As-3 Unit 0 310 [id number] Output: Urine 35 760 295 Other: Voiding Method Indwelling Catheter Indwelling Catheter ABP, PAP, CO, CI - Last Documented Arterial Blood Pressure 133/42 - Exam the patient is awake and alert. There is a right facial weakness which was also noted yesterday. It is more evident on today's evaluation of the patient is more awake. She is and communicating. She is a slow in answering questions and there are Tsering of her answers are not certain any to be confirmed obviously. Head exam was generally normal. There was no scleral icterus or corneal arcus. Mucous membranes were moist. Neck was supple and without jugular venous distension, thyromegaly, or carotid bruits. Carotids were easily palpable bilaterally. There was no adenopathy.The patient has a left IJ triple-lumen catheter in place. Cardiac exam revealed the PMI to be normally situated and sized. The rhythm was regular and no extrasystoles were noted during several minutes of auscultation. The first and second heart sounds were normal and physiologic splitting of the second heart sound was noted. There were no murmurs, rubs, clicks, or gallops. Abdominal exam revealed normal bowel sounds. The abdomen was soft, non-tender, and without masses, organomegaly, or appreciable enlargement of the abdominal aorta. Extremities show diminished pulses otherwise there is no cyanosis or clubbing. No significant edema can be palpated. Neurologically, the patient is following commands. There is significant weakness in the right upper and right lower extremity related to a recent CVA. There is also a right facial weakness and asymmetry. Cough is weak. Motor function left-sided within normal limits. Pupils are equal and symmetrical and there is no nystagmus. She is awake and alert and following commands and answering questions. - Labs CBC & Chem 7: 12/18/17 03:46 12/18/17 03:46 Labs: Abnormal Lab Results - Last 24 Hours (Table) 12/17/17 12/17/17 12/17/17 Range/Units 13:04 13:44 13:44 WBC 23.4 H (3.8-10.6) k/uL RBC 1.58 L (3.80-5.40) m/uL Hgb 3.7 L* D (11.4-16.0) gm/dL Hct 13.4 L* (34.0-46.0) % MCH 23.8 L (25.0-35.0) pg MCHC 28.0 L (31.0-37.0) g/dL Plt Count 648 H D (150-450) k/uL Neutrophils # 20.2 H (1.3-7.7) k/uL Monocytes # 1.4 H (0-1.0) k/uL PT (9.0-12.0) sec INR (<1.2) ABG pCO2 (35-45) mmHg ABG pO2 (83-108) mmHg ABG HCO3 (21-25) mmol/L ABG Total CO2 (19-24) mmol/L ABG O2 Saturation (94-97) % Sodium (137-145) mmol/L Chloride (98-107) mmol/L Carbon Dioxide (22-30) mmol/L BUN (7-17) mg/dL Creatinine (0.52-1.04) mg/dL Glucose (74-99) mg/dL POC Glucose (mg/dL) 195 H (75-99) mg/dL Plasma Lactic Acid Librado (0.7-2.0) mmol/L Calcium (8.4-10.2) mg/dL Magnesium (1.6-2.3) mg/dL Total Protein (6.3-8.2) g/dL Albumin (3.5-5.0) g/dL Crossmatch See Detail 12/17/17 12/17/17 12/17/17 Range/Units 13:44 13:44 14:46 WBC (3.8-10.6) k/uL RBC (3.80-5.40) m/uL Hgb (11.4-16.0) gm/dL Hct (34.0-46.0) % MCH (25.0-35.0) pg MCHC (31.0-37.0) g/dL Plt Count (150-450) k/uL Neutrophils # (1.3-7.7) k/uL Monocytes # (0-1.0) k/uL PT 12.8 H (9.0-12.0) sec INR 1.4 H (<1.2) ABG pCO2 (35-45) mmHg ABG pO2 (83-108) mmHg ABG HCO3 (21-25) mmol/L ABG Total CO2 (19-24) mmol/L ABG O2 Saturation (94-97) % Sodium 146 H (137-145) mmol/L Chloride 119 H (98-107) mmol/L Carbon Dioxide 14 L (22-30) mmol/L BUN 97 H* (7-17) mg/dL Creatinine 2.20 H (0.52-1.04) mg/dL Glucose 127 H (74-99) mg/dL POC Glucose (mg/dL) (75-99) mg/dL Plasma Lactic Acid Librado 4.8 H* (0.7-2.0) mmol/L Calcium (8.4-10.2) mg/dL Magnesium 2.8 H (1.6-2.3) mg/dL Total Protein 5.4 L (6.3-8.2) g/dL Albumin 2.9 L (3.5-5.0) g/dL Crossmatch 12/17/17 12/17/17 12/17/17 Range/Units 16:44 18:58 20:05 WBC 18.6 H (3.8-10.6) k/uL RBC 3.16 L (3.80-5.40) m/uL Hgb 8.4 L D (11.4-16.0) gm/dL Hct 26.1 L (34.0-46.0) % MCH (25.0-35.0) pg MCHC (31.0-37.0) g/dL Plt Count (150-450) k/uL Neutrophils # 15.9 H (1.3-7.7) k/uL Monocytes # (0-1.0) k/uL PT (9.0-12.0) sec INR (<1.2) ABG pCO2 25 L (35-45) mmHg ABG pO2 >400 H (83-108) mmHg ABG HCO3 15 L (21-25) mmol/L ABG Total CO2 16 L (19-24) mmol/L ABG O2 Saturation 100.0 H (94-97) % Sodium (137-145) mmol/L Chloride (98-107) mmol/L Carbon Dioxide (22-30) mmol/L BUN (7-17) mg/dL Creatinine (0.52-1.04) mg/dL Glucose (74-99) mg/dL POC Glucose (mg/dL) 138 H (75-99) mg/dL Plasma Lactic Acid Librado (0.7-2.0) mmol/L Calcium (8.4-10.2) mg/dL Magnesium (1.6-2.3) mg/dL Total Protein (6.3-8.2) g/dL Albumin (3.5-5.0) g/dL Crossmatch 12/17/17 12/18/17 12/18/17 Range/Units 22:05 03:46 03:46 WBC 15.6 H (3.8-10.6) k/uL RBC 3.06 L (3.80-5.40) m/uL Hgb 8.2 L (11.4-16.0) gm/dL Hct 25.4 L (34.0-46.0) % MCH (25.0-35.0) pg MCHC (31.0-37.0) g/dL Plt Count (150-450) k/uL Neutrophils # 12.8 H (1.3-7.7) k/uL Monocytes # (0-1.0) k/uL PT (9.0-12.0) sec INR (<1.2) ABG pCO2 (35-45) mmHg ABG pO2 (83-108) mmHg ABG HCO3 (21-25) mmol/L ABG Total CO2 (19-24) mmol/L ABG O2 Saturation (94-97) % Sodium 148 H (137-145) mmol/L Chloride 127 H* (98-107) mmol/L Carbon Dioxide 18 L (22-30) mmol/L BUN 71 H (7-17) mg/dL Creatinine 1.76 H (0.52-1.04) mg/dL Glucose (74-99) mg/dL POC Glucose (mg/dL) 122 H (75-99) mg/dL Plasma Lactic Acid Librado (0.7-2.0) mmol/L Calcium 6.9 L (8.4-10.2) mg/dL Magnesium 2.4 H (1.6-2.3) mg/dL Total Protein (6.3-8.2) g/dL Albumin (3.5-5.0) g/dL Crossmatch Assessment and Plan Plan: assessment 1 acute GI bleed likely of an upper GI source. The patient presented with melanotic stools. The patient has been maintained on Plavix and Eliquis. The patient was treated with K centra and the patient was also given packed RBC transfusion and fluids. Hemoglobin is stabilized and it's up to 8.2 on today's evaluation. She is hemodynamically stable. No further episodes of bleeding. 2 profound anemia with a hemoglobin of 3.7 secondary to GI blood loss, recovered and hemoglobin is above 8. 3 acute on top of chronic renal injury. Creatinine is up to 2.2, likely secondary to intravascular volume depletion and hypovolemic shock, improving and the creatinine is down to 1.7 4 new onset seizure activity, currently in a postictal state, likely related to her previous strokes. Discussed the case with neurology and will wait and hold off on antiepileptic treatment for now 5 recent hospitalization for left anterior cerebral artery distribution CVA involving the left frontal lobe. The patient has a right-sided weakness. I'm not sure there is ongoing weakness or worsening weakness in the right side compared to her baseline. There was also concern for carotid artery dissection. For that reason I consulted neurology. MRI and MRA of the brain will be repeated today. 6 history of old CVA involving the occipital lobes and the patient has received thrombolytics in the past 7hypothyroidism 8 hypertension 9 hyperlipidemia 10history of rheumatic fever 11 history of scarlet fever CHARLIE Monitor mental status. MRI/MRA of the brain. Change IV fluids to half-normal saline as the patient has developed some hyperchloremic hypernatremia. Monitor renal function. Monitor hemoglobin and pedal or any signs of GI bleeding. No anticoagulants or antiplatelet agents for now to the MRI/MRA of the brain is completed. GI is on the case. Carotids on the case. We'll continue to follow.
[2017-12-18 12:17] LABS: Glucose,Whole Blood 101 mg/dL (75-99)
--- NOTE | 2017-12-18 12:48 | P.CNNES ---
History of Present Illness Consult date: 12/18/17 Reason for Consult: Patient with recent stroke and new weakness on her right side. History of Present Illness: This patient is a 82-year-old right-handed white female who was brought into the emergency room at [facility] on 12/17/2017 with symptoms of generalized weakness and inability to get up out of bed. Apparently her sister noted the significant change along with her finding of increase in black tarry stools with no hematemesis. The patient was brought to the emergency room at [facility] yesterday and was evaluated in the ER by Dr. Paige. She was sent for a computed tomography scan of the brain which revealed evidence of any evolving subacute to chronic inferior left frontal lobe infarct. There was evidence of an old left parietal cortical infarct with no acute intracranial abnormality noted. The patient was found in the emergency room to have a profound massive GI bleed with a hemoglobin of 3.7. She continued to get progressively weak. She became more and more lethargic and did require 2 units of packed red blood cells. The patient was recently discharged from the hospital on 11/13/2017 after being treated for acute stroke. MRI of the brain was completed back on 11/13/2017 which revealed evidence of a left frontal lobe infarct. There was also abnormalities in the left occipital parietal lobe. Patient was also found to have evidence of possible dissection of the internal carotid arteries. She was transferred to [facility] where she was seen in the neuro ICU. Apparently she underwent evaluation and treatment at [facility] and was discharged on a combination of Eliquis, Plavix, and aspirin therapy. She was initially sent to [facility] inpatient rehab unit and then was able to be discharged home. Due to her massive GI bleeding she was taken off of all of the anticoagulant medications. She was seen by gastroenterology and Dr. Laws. The patient apparently had a seizure-like event yesterday which did resolve very quickly. She was very much postictal following the seizure event yesterday but now seems to be back to baseline level of function. Today the nursing staff has noticed increasing weakness on her right side mostly involving her right lower extremity. We have recommended the patient undergo a follow-up MRI and MRA of the brain for further assessment of her complex history of recent stroke and possible carotid artery dissection. The patient is resting comfortably and states that she has been having difficulty in her stroke recovery. Her speech still is slightly dysarthric at times. We have recommended that the MRI and MRA be done stat today as well as a routine EEG for further assessment given this patient's rather complex past medical history. Case was discussed today at length with Dr. Carrion and Dr. Laws and we will continue close neurological follow-up with the patient. Depending on the results of her MRI of the brain and EEG further recommendations will be given. We have requested all recent records to be sent from [facility] in regards to her workup there regarding internal carotid artery dissection. Given heard massive GI bleeding she cannot be placed on anticoagulation at this time and we will need to closely monitor her progress in the intensive care unit. Case was discussed at length with the patient's brother today at bedside in the ICU. All of his questions were answered. He is aware of her very guarded condition at this time. Neurology is now been consulted for further evaluation and recommendations. Review of Systems Constitutional: Denies chills, Denies fever Eyes: denies blurred vision, denies pain Ears, nose, mouth and throat: Denies headache, Denies sore throat Cardiovascular: Denies chest pain, Denies shortness of breath Respiratory: Denies cough Gastrointestinal: Denies abdominal pain, Denies diarrhea, Denies nausea, Denies vomiting Genitourinary: Denies dysuria, Denies hematuria Musculoskeletal: Denies myalgias Integumentary: Denies pruritus, Denies rash Neurological: Reports aphasia, Reports change in mentation, Reports change in speech, Reports confusion, Reports hearing difficulties, Reports memory loss, Reports paresthesias, Denies numbness, Denies weakness Psychiatric: Reports difficulty concentrating, Denies anxiety, Denies depression Endocrine: Denies fatigue, Denies weight change Past Medical History Past Medical History: CVA/TIA, Hyperlipidemia, Hypertension, Renal Disease, Thyroid Disorder Additional Past Medical History / Comment(s): 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 Chronic renal failure, hypertension, hyperlipidemia, hypothyroidism, history of rheumatic fever, history of scarlet fever, History of Any Multi-Drug Resistant Organisms: None Reported Past Surgical History: Adenoidectomy, Tonsillectomy Additional Past Surgical History / Comment(s): part of thyroid removed Past Anesthesia/Blood Transfusion Reactions: Unable to Obtain Additional Past Anesthesia/Blood Transfusion Reaction / Comment(s): patient states she had a hard time waking up after having anesthesia Past Psychological History: No Psychological Hx Reported Smoking Status: Never smoker Past Alcohol Use History: Unable to Obtain Past Drug Use History: Unable to Obtain - Past Family History Father Family Medical History: No Reported History Additional Family Medical History / Comment(s): parkinsons Mother History Unknown: Yes Family Medical History: Cancer, Diabetes Mellitus Additional Family Medical History / Comment(s): colon cancer Sister(s) Additional Family Medical History / Comment(s): breast cancer Medications and Allergies Home Medications Medication Instructions Recorded Confirmed Type Atenolol [Tenormin] 50 mg PO DAILY 08/31/15 12/17/17 History Clopidogrel [Plavix] 75 mg PO DAILY 08/31/15 12/17/17 History Famotidine [Pepcid] 40 mg PO DAILY 08/31/15 12/17/17 History Levothyroxine Sodium [Synthroid] 125 mcg PO DAILY 08/31/15 12/17/17 History Simvastatin [Zocor] 40 mg PO HS 08/31/15 12/17/17 History Ergocalciferol (Vitamin D2) 50,000 unit PO Q30D 05/12/17 12/17/17 History [Vitamin D2] Lisinopril [Zestril] 30 mg PO DAILY 11/12/17 12/17/17 History Apixaban [Eliquis] 5 mg PO BID 12/17/17 12/17/17 History Pantoprazole Sodium [Protonix] 40 mg PO DAILY 12/17/17 12/17/17 History Allergies Allergy/AdvReac Type Severity Reaction Status Date / Time codeine Allergy Rash/Hives Verified 12/17/17 13:02 ciprofloxacin AdvReac Diarrhea Verified 12/17/17 13:02 Physical Examination - Vital Signs Vital Signs: Vital Signs Temp Pulse Pulse Resp BP BP BP 12/18/17 12:00 98.1 F 63 20 109/46 12/18/17 11:30 67 22 109/44 12/18/17 11:00 58 L 20 109/44 12/18/17 10:30 67 22 117/58 12/18/17 10:00 60 20 117/58 12/18/17 09:30 61 22 97/44 12/18/17 09:24 61 23 97/44 122/40 12/18/17 09:00 56 L 18 97/44 12/18/17 08:42 12/18/17 08:30 52 L 17 98/46 12/18/17 08:00 97.8 F 53 L 19 98/46 12/18/17 07:30 60 20 94/44 12/18/17 07:00 58 L 21 94/44 12/18/17 06:30 59 L 19 104/39 12/18/17 06:00 61 21 104/39 12/18/17 05:30 60 21 106/60 12/18/17 05:00 61 21 106/60 12/18/17 04:30 80 22 85/39 12/18/17 04:00 97.9 F 57 L 18 85/39 12/18/17 03:30 58 L 22 113/45 12/18/17 03:00 58 L 20 113/45 12/18/17 02:30 57 L 21 92/39 12/18/17 02:00 57 L 22 92/39 12/18/17 01:30 59 L 21 91/39 12/18/17 01:00 58 L 25 H 91/39 12/18/17 00:30 60 23 84/39 12/18/17 00:14 60 23 84/39 12/18/17 00:00 97.9 F 62 23 84/39 12/17/17 23:30 61 22 92/37 12/17/17 23:00 72 25 H 92/37 12/17/17 22:30 61 24 88/36 12/17/17 22:00 59 L 21 88/36 12/17/17 21:30 62 23 104/46 12/17/17 21:00 98.5 F 66 20 104/46 12/17/17 20:30 67 23 93/39 12/17/17 20:00 98.7 F 77 20 93/39 12/17/17 19:45 66 26 H 93/39 12/17/17 19:35 98.7 F 70 35 H 149/46 12/17/17 19:30 66 20 93/39 12/17/17 19:15 66 22 93/39 12/17/17 19:00 69 20 93/39 08/10/18 18:49 98.3 F 69 18 97/33 12/17/17 18:45 66 66 H 79/34 12/17/17 18:30 67 26 H 82/33 12/17/17 18:15 67 55 H 82/33 12/17/17 18:09 98.3 F 66 22 77/26 12/17/17 18:06 98.3 F 70 24 82/28 12/17/17 18:05 12/17/17 18:00 68 31 H 82/33 12/17/17 17:45 68 23 12/17/17 17:30 75 23 86/35 12/17/17 17:15 94.9 F L 74 23 90/43 12/17/17 17:10 98.0 F 67 18 94/44 12/17/17 17:08 98.0 F 67 18 94/44 12/17/17 17:01 74 12/17/17 16:35 98.0 F 67 18 94/44 12/17/17 16:14 98.0 F 86 18 94/44 12/17/17 16:10 97.6 F 66 20 141/53 12/17/17 16:04 97.8 F 71 18 103/50 12/17/17 15:23 97.8 F 75 18 118/55 12/17/17 14:53 97.6 F 79 18 129/58 12/17/17 14:44 96.9 F L 68 18 108/46 12/17/17 14:31 97.3 F L 65 16 83/42 12/17/17 14:10 97.8 F 68 18 132/49 12/17/17 14:01 69 18 93/50 12/17/17 13:00 97.0 F L 150 H 16 112/84 Pulse Ox 12/18/17 12:00 100 12/18/17 11:30 100 12/18/17 11:00 100 12/18/17 10:30 100 12/18/17 10:00 100 12/18/17 09:30 100 12/18/17 09:24 12/18/17 09:00 100 12/18/17 08:42 100 12/18/17 08:30 100 12/18/17 08:00 100 12/18/17 07:30 100 12/18/17 07:00 100 12/18/17 06:30 100 08/11/18 06:00 100 12/18/17 05:30 100 12/18/17 05:00 100 12/18/17 04:30 100 12/18/17 04:00 100 12/18/17 03:30 100 12/18/17 03:00 100 12/18/17 02:30 100 12/18/17 02:00 100 12/18/17 01:30 100 12/18/17 01:00 100 12/18/17 00:30 100 12/18/17 00:14 100 12/18/17 00:00 100 12/17/17 23:30 100 12/17/17 23:00 100 12/17/17 22:30 100 12/17/17 22:00 100 12/17/17 21:30 100 12/17/17 21:00 100 12/17/17 20:30 100 12/17/17 20:00 100 12/17/17 19:45 100 12/17/17 19:35 100 12/17/17 19:30 100 12/17/17 19:15 100 12/17/17 19:00 100 12/17/17 18:49 100 12/17/17 18:45 100 12/17/17 18:30 100 12/17/17 18:15 100 12/17/17 18:09 100 12/17/17 18:06 99 12/17/17 18:05 97 12/17/17 18:00 100 12/17/17 17:45 100 12/17/17 17:30 100 12/17/17 17:15 100 12/17/17 17:10 100 12/17/17 17:08 100 12/17/17 17:01 12/17/17 16:35 12/17/17 16:14 12/17/17 16:10 100 12/17/17 16:04 10 L 12/17/17 15:23 97 12/17/17 14:53 98 12/17/17 14:44 100 12/17/17 14:31 100 12/17/17 14:10 100 12/17/17 14:01 100 12/17/17 13:00 89 L Intake and Output 12/17/17 12/18/17 12/18/17 22:59 06:59 14:59 Intake Total 5060 600 450 Output Total 300 495 370 Balance 4760 105 80 Intake: IV 2200 600 450 Sodium Chloride 0.45% 1, 75 000 ml @ 45 mls/hr IV . [id number] [facility] Rx#:[id number] Sodium Chloride 0.9% 1, 150 600 375 000 ml @ 75 mls/hr IV . [id number] [facility] Rx#:[id number] Sodium Chloride 0.9% 500 2050 ml @ 999 mls/hr IV .Q31M [facility] Rx#:[id number] Amount of Fluid Infused ( 1000 ml) Blood Product 1860 Rc As-1 Unit 310 [id number] Rc As-3 Unit 310 [id number] Rc As-3 Unit 310 [id number] Rc Pheresis As-3 Unit 310 [id number] Output: Urine 300 495 370 Other: Voiding Method Indwelling Catheter Indwelling Catheter Indwelling Catheter Weight 64.3 kg ABP, PAP, CO, CI - Last 8 Hours Arterial Blood Pressure 140/45 Arterial Blood Pressure 144/49 Arterial Blood Pressure 133/42 Arterial Blood Pressure 138/49 Arterial Blood Pressure 139/46 Arterial Blood Pressure 114/38 Arterial Blood Pressure 127/41 Arterial Blood Pressure 122/39 Arterial Blood Pressure 113/41 Arterial Blood Pressure 114/43 Arterial Blood Pressure 105/39 Arterial Blood Pressure 128/44 Arterial Blood Pressure 123/42 Arterial Blood Pressure 112/39 Arterial Blood Pressure 115/40 Arterial Blood Pressure 144/46 - Constitutional General appearance: average body habitus, cooperative - EENT EENT: PERRL, mucous membranes moist - Respiratory Respiratory: lungs clear, normal breath sounds - Cardiovascular Cardiovascular: regular rate, normal S1, normal S2 Extremities: no peripheral edema bilaterally - Gastrointestinal Gastrointestinal: normoactive bowel sounds - Integumentary Integumentary: normal - Neurologic Cranial nerve examination: PERRL, EOMI, VFF, face symmetric, intact, intact gag reflex, intact corneal reflex, normal palatal elevation Speech examination: intact Sensorimotor examination: intact Motor examination - right side: 35: biceps, triceps, wrist flexion, wrist extension, hr intern, hip flexors, knee extensors, dorsiflexion, toe extension (EHL) , plantarflexion Motor examination - left side: 45: biceps, triceps, wrist flexion, wrist extension, hr intern, hip flexors, knee extensors, dorsiflexion, toe extension (EHL) , plantarflexion Detailed sensory examination: intact Reflex and gait examination: intact Reflexes: 1+: ankle, bicep, knee, tricep - Musculoskeletal Musculoskeletal: no pain - Psychiatric Psychiatric: mood/affect appropriate, cooperative Results - Laboratory Findings CBC and BMP: 12/18/17 03:46 12/18/17 03:46 Abnormal Lab Findings: Abnormal Labs 12/17/17 12/17/17 12/17/17 13:04 13:44 13:44 WBC 23.4 H RBC 1.58 L Hgb 3.7 L* D Hct 13.4 L* MCH 23.8 L MCHC 28.0 L Plt Count 648 H D Neutrophils # 20.2 H Monocytes # 1.4 H PT INR ABG pCO2 ABG pO2 ABG HCO3 ABG Total CO2 ABG O2 Saturation Sodium Chloride Carbon Dioxide BUN Creatinine Glucose POC Glucose (mg/dL) 195 H Plasma Lactic Acid Librado Calcium Magnesium Total Protein Albumin Crossmatch See Detail 12/17/17 12/17/17 12/17/17 13:44 13:44 14:46 WBC RBC Hgb Hct MCH MCHC Plt Count Neutrophils # Monocytes # PT 12.8 H INR 1.4 H ABG pCO2 ABG pO2 ABG HCO3 ABG Total CO2 ABG O2 Saturation Sodium 146 H Chloride 119 H Carbon Dioxide 14 L BUN 97 H* Creatinine 2.20 H Glucose 127 H POC Glucose (mg/dL) Plasma Lactic Acid Librado 4.8 H* Calcium Magnesium 2.8 H Total Protein 5.4 L Albumin 2.9 L Crossmatch 12/17/17 12/17/17 12/17/17 16:44 18:58 20:05 WBC 18.6 H RBC 3.16 L Hgb 8.4 L D Hct 26.1 L MCH MCHC Plt Count Neutrophils # 15.9 H Monocytes # PT INR ABG pCO2 25 L ABG pO2 >400 H ABG HCO3 15 L ABG Total CO2 16 L ABG O2 Saturation 100.0 H Sodium Chloride Carbon Dioxide BUN Creatinine Glucose POC Glucose (mg/dL) 138 H Plasma Lactic Acid Librado Calcium Magnesium Total Protein Albumin Crossmatch 12/17/17 12/18/17 12/18/17 22:05 03:46 03:46 WBC 15.6 H RBC 3.06 L Hgb 8.2 L Hct 25.4 L MCH MCHC Plt Count Neutrophils # 12.8 H Monocytes # PT INR ABG pCO2 ABG pO2 ABG HCO3 ABG Total CO2 ABG O2 Saturation Sodium 148 H Chloride 127 H* Carbon Dioxide 18 L BUN 71 H Creatinine 1.76 H Glucose POC Glucose (mg/dL) 122 H Plasma Lactic Acid Librado Calcium 6.9 L Magnesium 2.4 H Total Protein Albumin Crossmatch 12/18/17 12:15 WBC RBC Hgb Hct MCH MCHC Plt Count Neutrophils # Monocytes # PT INR ABG pCO2 ABG pO2 ABG HCO3 ABG Total CO2 ABG O2 Saturation Sodium Chloride Carbon Dioxide BUN Creatinine Glucose POC Glucose (mg/dL) 101 H Plasma Lactic Acid Librado Calcium Magnesium Total Protein Albumin Crossmatch Assessment and Plan (1) Gastrointestinal hemorrhage Current Visit: Yes Status: Acute Code(s): K92.2 - GASTROINTESTINAL HEMORRHAGE, UNSPECIFIED SNOMED Code(s): 24178804 (2) Acute encephalopathy Current Visit: No Status: Acute Code(s): G93.40 - ENCEPHALOPATHY, UNSPECIFIED SNOMED Code(s): 32977765 (3) Anemia Current Visit: Yes Status: Chronic Code(s): D64.9 - ANEMIA, UNSPECIFIED SNOMED Code(s): 349527679 (4) Carotid dissection, bilateral Current Visit: No Status: Acute Code(s): I77.71 - DISSECTION OF CAROTID ARTERY SNOMED Code(s): 409482544 (5) History of stroke Current Visit: No Status: Chronic Code(s): Z86.73 - PRSNL HX OF TIA (TIA), AND CEREB INFRC W/O RESID DEFICITS SNOMED Code(s): 678688462 Plan: This patient is a 82-year-old female who is being evaluated today in the intensive care unit for history of recent stroke involving the left hemisphere. Patient was found during her initial stroke evaluation on 11/13/2017 as having possible bilateral carotid artery dissection. She was transferred and reported hospital neurointensive care unit where she was evaluated and treated. She was placed on Eloquis, Plavix, and aspirin and was discharged from there hospital facility to the subacute rehab unit at [facility]. Patient eventually was discharged home. On the day of her admission which was back on 12/17/2017 the patient was brought in due to severe weakness and massive GI bleeding. Her hemoglobin in the ER was very low in the range of 3.7. She was given 2 units of blood transfusion and admitted to the intensive care unit. This morning she still remains somewhat obtunded but arousable. Her speech is impaired. She was noted to have increasing right-sided weakness. She was sent for a computed tomography scan of the brain yesterday which results are as noted above. Due to her ongoing symptoms of evolving left frontal lobe stroke we have recommended a MRI and MRA of the brain to be done today stat. We will also obtain routine EEG as she did have a seizure event yesterday as well. Depending on these test results further recommendations will be given. Given the complex medical history this patient's overall prognosis at this time remains very guarded. Case was discussed at length with the patient's brother who was at bedside. All of his questions were answered. He is aware of her rather guarded condition at this time. We will await further recommendations from gastroenterology regarding her massive GI bleeding. She may require further endoscopy procedure for treatment. Pulmonary medicine also is following her condition closely in the ICU. Her overall prognosis at this time remains very guarded. We will continue close neurological follow-up with this patient in the intensive care unit. Case was discussed at length today with the patient's brother who is at bedside. All of his questions were answered. As noted he is aware of her very guarded condition. Time with Patient: Greater than 30
--- NOTE | 2017-12-18 13:13 | P.PN ---
Subjective Progress Note Date: 12/18/17 Principal diagnosis: GI bleeding This 82-year-old female was admitted to the hospital ICU yesterday after presenting to the emergency room with generalized weakness. The patient had a hemoglobin of 3.7 was hypotensive. The patient did have a brief seizure activity. She was given Ativan in the emergency room. She was fairly Tender throughout the day yesterday however today she is much more alert she is able to smile talk but as weakness in the right side of the body. This is difficult to substantiate whether this is new or old. 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 The patient has had no further seizures. She will she is nothing by mouth sternal area and would suggest feedings unless GI wants to endoscopy. She did have bowel movements and was reported to be brown in color. Patient is pleasant. My review of system Neuro denies headaches dizziness no seizure activity Psych cooperative: Cardiac: Denies chest pain palpitations. Patient not tachycardic blood pressure maintained GI no nausea vomiting abdominal pain bowel movements brown : IDC with good urine output Skin: Reported no breakdown ENT: Adequate hearing Objective - Vital Signs Vital signs: Vital Signs Temp 98.1 F 12/18/17 12:00 Pulse 63 12/18/17 12:00 Resp 20 12/18/17 12:00 BP 109/46 12/18/17 12:00 Pulse Ox 100 12/18/17 12:00 Intake & Output 12/17/17 12/18/17 12/18/17 18:59 06:59 18:59 Intake Total 3240 2420 450 Output Total 35 760 370 Balance 3205 1660 80 Weight 74.843 kg 64.3 kg 64.3 kg Intake: IV 1000 1800 450 Sodium Chloride 0.45% 1, 75 000 ml @ 45 mls/hr IV . [id number] [facility] Rx#:[id number] Sodium Chloride 0.9% 1, 750 375 000 ml @ 75 mls/hr IV . [id number] [facility] Rx#:[id number] Sodium Chloride 0.9% 500 1000 1050 ml @ 999 mls/hr IV .Q31M [facility] Rx#:[id number] Amount of Fluid Infused ( 1000 ml) Blood Product 1240 620 Rc As-1 Unit 310 [id number] As-3 Unit 310 [id number] Rc As-3 Unit 310 [id number] Pheresis As-3 Unit 0 310 [id number] Output: Urine 35 760 370 Other: Voiding Method Indwelling Catheter Indwelling Catheter Indwelling Catheter ABP, PAP, CO, CI - Last Documented Arterial Blood Pressure 140/45 PHYSICAL EXAMINATION: Cooperative, at present in no acute distress. HEENT: Neck decreased range of motion no JVD no carotid bruits Chest: Clear to auscultation Cardiac: Normal S1-S2 no gallops no murmur . Abdomen: Soft bowel sounds present. Extremities: No edema no tenderness Neurologically: Patient is awake alert compared to yesterday does move left side adequately right-sided the patient has some increased rigidity decreased range of motion. There is slight facial droop on the right side. Findings clinically indicated on stroke due to the rigidity on the right side. Plantars are equivocal. - Labs CBC & Chem 7: 12/18/17 03:46 12/18/17 03:46 Labs: Abnormal Lab Results - Last 24 Hours (Table) 12/17/17 12/17/17 12/17/17 Range/Units 13:04 13:44 13:44 WBC 23.4 H (3.8-10.6) k/uL RBC 1.58 L (3.80-5.40) m/uL Hgb 3.7 L* D (11.4-16.0) gm/dL Hct 13.4 L* (34.0-46.0) % MCH 23.8 L (25.0-35.0) pg MCHC 28.0 L (31.0-37.0) g/dL Plt Count 648 H D (150-450) k/uL Neutrophils # 20.2 H (1.3-7.7) k/uL Monocytes # 1.4 H (0-1.0) k/uL PT (9.0-12.0) sec INR (<1.2) ABG pCO2 (35-45) mmHg ABG pO2 (83-108) mmHg ABG HCO3 (21-25) mmol/L ABG Total CO2 (19-24) mmol/L ABG O2 Saturation (94-97) % Sodium (137-145) mmol/L Chloride (98-107) mmol/L Carbon Dioxide (22-30) mmol/L BUN (7-17) mg/dL Creatinine (0.52-1.04) mg/dL Glucose (74-99) mg/dL POC Glucose (mg/dL) 195 H (75-99) mg/dL Plasma Lactic Acid Librado (0.7-2.0) mmol/L Calcium (8.4-10.2) mg/dL Magnesium (1.6-2.3) mg/dL Total Protein (6.3-8.2) g/dL Albumin (3.5-5.0) g/dL Crossmatch See Detail 12/17/17 12/17/17 12/17/17 Range/Units 13:44 13:44 14:46 WBC (3.8-10.6) k/uL RBC (3.80-5.40) m/uL Hgb (11.4-16.0) gm/dL Hct (34.0-46.0) % MCH (25.0-35.0) pg MCHC (31.0-37.0) g/dL Plt Count (150-450) k/uL Neutrophils # (1.3-7.7) k/uL Monocytes # (0-1.0) k/uL PT 12.8 H (9.0-12.0) sec INR 1.4 H (<1.2) ABG pCO2 (35-45) mmHg ABG pO2 (83-108) mmHg ABG HCO3 (21-25) mmol/L ABG Total CO2 (19-24) mmol/L ABG O2 Saturation (94-97) % Sodium 146 H (137-145) mmol/L Chloride 119 H (98-107) mmol/L Carbon Dioxide 14 L (22-30) mmol/L BUN 97 H* (7-17) mg/dL Creatinine 2.20 H (0.52-1.04) mg/dL Glucose 127 H (74-99) mg/dL POC Glucose (mg/dL) (75-99) mg/dL Plasma Lactic Acid Librado 4.8 H* (0.7-2.0) mmol/L Calcium (8.4-10.2) mg/dL Magnesium 2.8 H (1.6-2.3) mg/dL Total Protein 5.4 L (6.3-8.2) g/dL Albumin 2.9 L (3.5-5.0) g/dL Crossmatch 12/17/17 12/17/17 12/17/17 Range/Units 16:44 18:58 20:05 WBC 18.6 H (3.8-10.6) k/uL RBC 3.16 L (3.80-5.40) m/uL Hgb 8.4 L D (11.4-16.0) gm/dL Hct 26.1 L (34.0-46.0) % MCH (25.0-35.0) pg MCHC (31.0-37.0) g/dL Plt Count (150-450) k/uL Neutrophils # 15.9 H (1.3-7.7) k/uL Monocytes # (0-1.0) k/uL PT (9.0-12.0) sec INR (<1.2) ABG pCO2 25 L (35-45) mmHg ABG pO2 >400 H (83-108) mmHg ABG HCO3 15 L (21-25) mmol/L ABG Total CO2 16 L (19-24) mmol/L ABG O2 Saturation 100.0 H (94-97) % Sodium (137-145) mmol/L Chloride (98-107) mmol/L Carbon Dioxide (22-30) mmol/L BUN (7-17) mg/dL Creatinine (0.52-1.04) mg/dL Glucose (74-99) mg/dL POC Glucose (mg/dL) 138 H (75-99) mg/dL Plasma Lactic Acid [place]ibrado (0.7-2.0) mmol/L Calcium (8.4-10.2) mg/dL Magnesium (1.6-2.3) mg/dL Total Protein (6.3-8.2) g/dL Albumin (3.5-5.0) g/dL Crossmatch 12/17/17 12/18/17 12/18/17 Range/Units 22:05 03:46 03:46 WBC 15.6 H (3.8-10.6) k/uL RBC 3.06 L (3.80-5.40) m/uL Hgb 8.2 L (11.4-16.0) gm/dL Hct 25.4 L (34.0-46.0) % MCH (25.0-35.0) pg MCHC (31.0-37.0) g/dL Plt Count (150-450) k/uL Neutrophils # 12.8 H (1.3-7.7) k/uL Monocytes # (0-1.0) k/uL PT (9.0-12.0) sec INR (<1.2) ABG pCO2 (35-45) mmHg ABG pO2 (83-108) mmHg ABG HCO3 (21-25) mmol/L ABG Total CO2 (19-24) mmol/L ABG O2 Saturation (94-97) % Sodium 148 H (137-145) mmol/L Chloride 127 H* (98-107) mmol/L Carbon Dioxide 18 L (22-30) mmol/L BUN 71 H (7-17) mg/dL Creatinine 1.76 H (0.52-1.04) mg/dL Glucose (74-99) mg/dL POC Glucose (mg/dL) 122 H (75-99) mg/dL Plasma Lactic Acid Librado (0.7-2.0) mmol/L Calcium 6.9 L (8.4-10.2) mg/dL Magnesium 2.4 H (1.6-2.3) mg/dL Total Protein (6.3-8.2) g/dL Albumin (3.5-5.0) g/dL Crossmatch 12/18/17 Range/Units 12:15 WBC (3.8-10.6) k/uL RBC (3.80-5.40) m/uL Hgb (11.4-16.0) gm/dL Hct (34.0-46.0) % MCH (25.0-35.0) pg MCHC (31.0-37.0) g/dL Plt Count (150-450) k/uL Neutrophils # (1.3-7.7) k/uL Monocytes # (0-1.0) k/uL PT (9.0-12.0) sec INR (<1.2) ABG pCO2 (35-45) mmHg ABG pO2 (83-108) mmHg ABG HCO3 (21-25) mmol/L ABG Total CO2 (19-24) mmol/L ABG O2 Saturation (94-97) % Sodium (137-145) mmol/L Chloride (98-107) mmol/L Carbon Dioxide (22-30) mmol/L BUN (7-17) mg/dL Creatinine (0.52-1.04) mg/dL Glucose (74-99) mg/dL POC Glucose (mg/dL) 101 H (75-99) mg/dL Plasma Lactic Acid Librado (0.7-2.0) mmol/L Calcium (8.4-10.2) mg/dL Magnesium (1.6-2.3) mg/dL Total Protein (6.3-8.2) g/dL Albumin (3.5-5.0) g/dL Crossmatch Assessment and Plan Assessment: ASSESSMENT: 1. Anemia secondary to acute blood loss. 2. GI bleeding source undetermined. 3. Episode of a seizure suspect secondary to severe anemia and hypotension. 4. History of left frontal stroke. 5. 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 6. History of chronic renal failure. 7. Acute kidney injury. 8. History of hypertension. PLAN: Continue present medical regimen hemoglobin stable vitals are stable renal functions improving. Further evaluation by technical training coordinator and recommendations from them could start patient oral feeds if GI is not planning for an EGD today.
[2017-12-18 17:52] LABS: Glucose,Whole Blood 95 mg/dL (75-99)
--- NOTE | 2017-12-18 19:08 | MR ---
EXAMINATION TYPE: MR brain wo con DATE OF EXAM: 12/18/2017 COMPARISON: CT brain 12/17/2017 HISTORY: Patient with recent stroke and carotid dissection CONTRAST: Performed utilizing 0 mL intravenous Gadavist gadolinium contrast. TECHNIQUE: Multiplanar, multiecho imaging on a 3.0 Brandie magnet is performed through the brain. Stud y is performed within 24 hours of arrival to the hospital. The craniovertebral junction is normal. The pituitary is normal. Diffusion-weighted imaging is performed. There is increased signal along the medial frontal lobe ext ending over the corpus callosum.. Pericallosal vascular distribution appears to have had acute ischem ic change. This area is hyperintense on T2-weighted sequences and hyperintense on inversion recovery weighted sequences. No additional suspicious area of ischemic changes are evident. There is some increased signal on T2 and inversion recovery weighted sequences within the watershed r egions bilaterally. The small areas are slightly larger on the left than the right and are not eviden t on the diffusion-weighted imaging suggesting these are old findings. Ventricles and sulci are appropriate for the patient age. IMPRESSIONS: 1. Acute ischemic change in the left pericallosal distribution.
--- NOTE | 2017-12-18 19:16 | MR ---
EXAMINATION TYPE: MR angio head wo con DATE OF EXAM: 12/18/2017 COMPARISON: 11/13/2017 HISTORY: Patient with recent stroke and carotid dissection TECHNIQUE: Time of flight images focusing on the [place] of [place] were performed without contrast. St udy is not performed within 24 hours of arrival to the hospital FINDINGS: Right vertebral artery is not identified. Left vertebral artery appears dominant. Left vertebral kimberly ry extends into the basilar artery. The left PICA is prominent. A right PICA extends from the basilar artery. The basilar tip appears normal and terminates in the right posterior cerebral artery. The le ft posterior cerebral artery appears to have a small contributory from the basilar artery but has pre dominant feet from the patent left posterior communicating artery. The distal internal carotid arteries appear normal. The carotid siphons appear normal. Ophthalmic art eries appear normal. The right internal carotid artery bifurcates normally into A1 and M1 segments. M 2 segments appear normal. The right A1 segment is normal. The left internal carotid artery terminates in the left middle cerebral artery branches. Middle cereb ral artery branches on the left appear normal. A left A1 segment is not identified. A2 segments withi n the [id number] are patent and appear to be fed a patent anterior communicating artery. Left A2 s egment is somewhat smaller than on the right. These vessels cross in the midline. The patient's acute ischemic change within the pericallosal vessel is at the edge the [id number] a nd is only partially visualized. COMPARISON: The right vertebral artery is better visualized previously. 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 The right pericallosal infarct is an interval finding. The A2 segments id entified currently were not evident previously, this appeared to be a solitary A2 segment previously. IMPRESSION: Congenital variation within the [place]. The right vertebral artery is nonvisualized current ly which appears to been nondominant but present previously. A second A2 segment is identified curren tly which was not evident previously. The pericallosal infarct is an interval finding.
[2017-12-18 23:00] LABS: Glucose,Whole Blood 102 mg/dL (75-99)
[2017-12-19 01:42] LABS: Glucose,Whole Blood 93 mg/dL (75-99)
[2017-12-19 03:43] LABS: Anisocytosis Slight; Basophils % (A) 0 %; Eosinophils # (A) 0.3 k/uL (0-0.7); Eosinophils % (A) 3 %; HCT 25.9 % (34.0-46.0); Hypochromasia Moderate; Lymphocytes # (A) 1.4 k/uL (1.0-4.8); Lymphocytes % (A) 15 %; MCH 26.1 pg (25.0-35.0); MCHC 30.8 g/dL (31.0-37.0); MCV 84.6 fL (80.0-100.0); Mean Platelet Volume 8.4; Monocytes # (A) 0.6 k/uL (0-1.0); Monocytes % (A) 6 %; Neutrophils # (A) 7.3 k/uL (1.3-7.7); Neutrophils % (A) 74 %; Platelet Count 382 k/uL (150-450); Poikilocytosis Marked; RBC 3.06 m/uL (3.80-5.40); RDW 16.1 % (11.5-15.5); WBC 9.8 k/uL (3.8-10.6)
[2017-12-19 04:03] LABS: Calcium 7.5 mg/dL (8.4-10.2); Magnesium 2.4 mg/dL (1.6-2.3); Potassium 4.1 mmol/L (3.5-5.1)
--- NOTE | 2017-12-19 06:57 | XR ---
EXAMINATION TYPE: XR chest 1V DATE OF EXAM: 12/19/2017 HISTORY: SOB. REFERENCE: Previous study dated 12/18/2017. FINDINGS: There is chronic appearing elevation of the right hemidiaphragm. There is a left internal j ugular catheter in place. Its tip is in the right atrium. Heart size is upper limits of normal. The lungs appear clear. There is some blunting of the left CP a ngle. IMPRESSION: 1. BORDERLINE CARDIOMEGALY. 2. I CANNOT EXCLUDE A SMALL, LEFT PLEURAL EFFUSION.
[2017-12-19 07:08] LABS: Glucose,Whole Blood 101 mg/dL (75-99)
[2017-12-19] MEDS: LEVOTHYROXINE IVP 100 MCG/5 ML VIAL IV SCH (08:55)
[2017-12-19] MEDS: PANTOPRAZOLE 40 MG/10 ML VIAL IVP SCH (08:56)
[2017-12-19] MEDS ORDERED: METOPROLOL TARTRATE 12.5 MG TAB PO SCH (09:00)
[2017-12-19] MEDS: SODIUM CHLORIDE 0.45% 1,000 ML IV SCH (09:09)
--- NOTE | 2017-12-19 11:42 | P.PN ---
Subjective Progress Note Date: 12/19/17 Patient is being evaluated for recent GI bleed and history of left SELENE stroke and is examined in the ICU. 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 She was transferred to [facility] neurology ICU where she was evaluated by the neuro infusion pharmacist. There was concern the patient may have had bilateral carotid artery dissection. She was placed initially on Plavix and aspirin at [facility] and then just prior to being discharged she developed an episode of acute onset of paroxysmal atrial fibrillation. She was recommended to go to inpatient rehab and later on [facility] on Plavix and aspirin therapy. Apparently her workup at [facility] did not show evidence for bilateral carotid artery dissection. She was recommended after 3 weeks to start on anticoagulation due to her paroxysmal atrial fibrillation. Patient apparently was started on Eloquis while she was in the inpatient rehab at later on [facility]. She was discharged home and was to continue with outpatient PT/OT evaluation. Patient noted some improvement with her right-sided weakness during this home PT evaluation and treatment. Unfortunately prior to her admission to hospital on 12/17/2017 she developed severe weakness and inability to stand. She was brought into the emergency room and was admitted to hospital on 12/17/2017. Her hemoglobin in the ER was 3.7. She was given 4 units of packed red blood cells as blood transfusion and her hemoglobin today is 8.0. She was seen by gastroenterology and Dr. Laws and is being considered for possible endoscopy procedure tomorrow. The patient was sent for an emergent MRI of the brain yesterday which was reviewed. MRI reveals evidence of acute ischemia involving the left anterior cerebral artery and slightly more pronounced as compared to previous MRI of the brain performed on 11/13/2017. Also there is a new area seen high in the left frontoparietal region which suggest a new area of infarction. Patient clearly had some deterioration with increase in right-sided weakness on admission to hospital. At this time she has been taken off of all anticoagulation medications including Plavix, aspirin , and Eloquis. She is to remain off of these anticoagulants until she is reevaluated by Dr. Laws. Her MRI of the brain failed to reveal any evidence of hemorrhage. She was able to complete a routine EEG today which was reviewed and is moderately slow with no evidence of any epileptiform discharges. We reviewed the results of the MRI and EEG today with the patient. Neurologically she is showing improvement in her mental status today. She will need PT OT reevaluation tomorrow for further ongoing treatment. We will await further recommendations for multiple specialists that are seeing this patient. Case was discussed today with the stroke specialists at [facility] over the phone Dr. Mcpherson, who will convey this information to her neurologist that had seen her during her admission in November. At this point she is to remain off of all anticoagulant treatments. She is showing signs of paroxysmal atrial fibrillation today and cardiology has been consulted. We are waiting further recommendations from cardiology in regards to management of her paroxysmal atrial fibrillation and risk of recurrent stroke. This patient's overall prognosis at this time remains very guarded given her multiple complex medical issues. We will continue close neurological follow-up with this patient in the intensive care unit. Case was discussed today with Dr. Carrion who agrees with our current treatment plan. Objective - Vital Signs Vital signs: Vital Signs Temp 98.4 F 12/19/17 04:00 Pulse 65 12/19/17 07:00 Resp 20 12/19/17 07:00 BP 132/67 12/19/17 07:00 Pulse Ox 100 12/19/17 07:00 Intake & Output 12/18/17 12/19/17 12/19/17 18:59 06:59 18:59 Intake Total 933 986 78 Output Total 783 740 60 Balance 150 246 18 Weight 64.3 kg 65.1 kg Intake: IV 933 936 78 .9 pressure bag 33 36 3 Sodium Chloride 0.45% 1, 450 900 75 000 ml @ 75 mls/hr IV . [id number] [facility] Rx#:[id number] Sodium Chloride 0.9% 1, 450 000 ml @ 75 mls/hr IV . [id number] [facility] Rx#:[id number] Oral 50 Output: Urine 783 740 60 Other: Voiding Method Indwelling Catheter Indwelling Catheter ABP, PAP, CO, CI - Last Documented Arterial Blood Pressure 162/57 - Exam Physical Examination: PHYSICAL EXAMINATION: Patient is resting comfortably in bed. VITAL SIGNS: Blood pressure is [162/57]. Heart rate is [65]. Respiration is [20] . Temperature is [98.4]. HEENT: Head is atraumatic, neck is supple, there were no carotid bruits. CHEST: Lungs are clear to auscultation and percussion. CARDIAC: S1, S2 normal rate and rhythm. There is no murmur. ABDOMEN: Soft and nontender. Bowel sounds are present. EXTREMITIES: There is no pedal edema. Peripheral pulses are present. Neurological examination: Patient is awake alert and oriented 3. Her speech is slow and at times she does have some dysarthric speech. She is much more awake and alert today and is following all commands. Her memory and intellectual functions only slightly impaired. Cranial nerve examination: Cranial nerves II through XII are grossly intact. Motor examination: Patient has right pronator drift. Muscle tone is normal. Muscle strength testing reveals right-sided hemiparesis 3+/5 throughout. Sensory exam was intact. Deep tendon reflexes: The DTRs are 1+ and symmetric. Plantar responses flexor bilaterally. Pronation gait cannot be assessed in this patient at this time. - Labs CBC & Chem 7: 12/19/17 03:30 12/19/17 03:30 Labs: Abnormal Lab Results - Last 24 Hours (Table) 12/18/17 12/18/17 12/19/17 Range/Units 12:15 22:58 03:30 RBC 3.06 L (3.80-5.40) m/uL Hgb 8.0 L (11.4-16.0) gm/dL Hct 25.9 L (34.0-46.0) % MCHC 30.8 L (31.0-37.0) g/dL RDW 16.1 H (11.5-15.5) % Chloride (98-107) mmol/L Carbon Dioxide (22-30) mmol/L BUN (7-17) mg/dL Creatinine (0.52-1.04) mg/dL POC Glucose (mg/dL) 101 H 102 H (75-99) mg/dL Calcium (8.4-10.2) mg/dL Magnesium (1.6-2.3) mg/dL 12/19/17 12/19/17 Range/Units 03:30 06:54 RBC (3.80-5.40) m/uL Hgb (11.4-16.0) gm/dL Hct (34.0-46.0) % MCHC (31.0-37.0) g/dL RDW (11.5-15.5) % Chloride 125 H* (98-107) mmol/L Carbon Dioxide 19 L (22-30) mmol/L BUN 38 H (7-17) mg/dL Creatinine 1.25 H (0.52-1.04) mg/dL POC Glucose (mg/dL) 101 H (75-99) mg/dL Calcium 7.5 L (8.4-10.2) mg/dL Magnesium 2.4 H (1.6-2.3) mg/dL Assessment and Plan (1) Gastrointestinal hemorrhage Current Visit: Yes Status: Acute Code(s): K92.2 - GASTROINTESTINAL HEMORRHAGE, UNSPECIFIED SNOMED Code(s): 85693511 (2) Acute encephalopathy Current Visit: No Status: Acute Code(s): G93.40 - ENCEPHALOPATHY, UNSPECIFIED SNOMED Code(s): 14549011 (3) Anemia Current Visit: Yes Status: Chronic Code(s): D64.9 - ANEMIA, UNSPECIFIED SNOMED Code(s): 500480674 (4) Carotid dissection, bilateral Current Visit: No Status: Acute Code(s): I77.71 - DISSECTION OF CAROTID ARTERY SNOMED Code(s): 126345802 (5) History of stroke Current Visit: No Status: Chronic Code(s): Z86.73 - PRSNL HX OF TIA (TIA), AND CEREB INFRC W/O RESID DEFICITS SNOMED Code(s): 744374123 Plan: This patient is a 82-year-old female who recently suffered a left anterior cerebral artery stroke and was transferred to [facility] on 11/13/2017 with MRA findings suggesting bilateral carotid artery dissection. Patient was admitted and treated at [facility] for several days and apparently was ruled out as having carotid artery dissection. She was placed on Plavix and aspirin and unfortunately developed paroxysmal atrial fibrillation just prior to discharge from [facility]. It was recommended that after 3 weeks she should be started on Eloquis. The patient completed inpatient rehab at [facility]. She was discharged home. She was brought into the emergency room on 12/17/2017 with profound weakness and severe anemia. Her hemoglobin in the ER was 3.7. She required 4 units of packed red blood cells per blood transfusion. Her hemoglobin today is 8.0. Patient was seen by gastroenterology and does require endoscopy procedure to rule out cause of acute GI bleeding. Patient is to remain off of all anticoagulant medications at this time. Cardiology was consulted today as she did go into paroxysmal atrial fibrillation this morning. We will await further recommendations from cardiology. Review of her MRI and EEG are as noted above. We will continue close neurological follow-up for this patient in the intensive care unit. Her overall prognosis at this time remains very guarded given her complex medical history and complications. Case was discussed today at length with the patient at bedside. All of her questions were answered. She is aware of her overall guarded condition in the ICU this morning.
--- NOTE | 2017-12-19 12:14 | CONS ---
CONSULTATION DATE OF SERVICE: 12/19/2017. HISTORY: This patient's chart was reviewed. The patient was admitted with complaint of extreme weakness and had a hemoglobin of 3.7. The patient initially presented in November with acute stroke. The CT angiogram was suggestive of possible internal carotid artery dissection. Patient was transferred to [facility] and subsequently was treated. There was no definite evidence of a dissection. The patient does have a history of atrial fibrillation. From the [facility], patient was discharged on aspirin and Plavix. Subsequently patient went to the rehab unit and somewhere patient's aspirin was discontinued and patient was started on Eliquis 5 mg b.i.d. The patient subsequently has been having black stool and is extremely weak. The patient does have a history of atrial fibrillation and history of a prior stroke. The patient was treated with tPA in 2009. PAST MEDICAL HISTORY: Includes history of hypertension, chronic kidney disease, history of CVA, and recent hospitalization with acute CVA. HOME MEDICATIONS: 1. Tenormin 50 mg daily. 2. Plavix 75 mg daily. 3. Pepcid once a day. 4. Eliquis 5 mg b.i.d. 5. Zestril 30 mg daily. 6. Protonix 40 mg daily. PHYSICAL EXAMINATION: At present reveals an 82-year-old female who appears slightly weak but is alert and awake. Blood pressure is 132/65 mmHg. The patient's heart rate was 100 to 120. 20-80. HEENT examination negative. Neck is supple. There is no increase in jugular venous pressure. Both the carotid pulses are felt. There is no bruit. Chest is symmetrical. Heart, the PMI is not felt. First and second heart sounds are normal. The lungs are clinically clear to auscultation and percussion. Abdomen is soft. Liver and spleen are not enlarged. Extremities, peripheral pulses are 2+. Patient's hemoglobin now is 8.0. Electrolytes are normal. Creatinine is 1.25. PLAN: We will start the patient on Lopressor 12.5 mg every 8 hours to control the rate and gradually increase the Lopressor as she tolerates it. We will hold off the anticoagulation at present until the patient's GI bleed is stabilized. The patient may need upper GI endoscopy to rule out any source of active bleeding. MMODL / IJN: [id number] /
--- NOTE | 2017-12-19 13:57 | P.PN ---
Subjective Progress Note Date: 12/19/17 This is a 82-year-old female patient who came into the emergency department with massive GI bleed in hemoglobin level of 3.7. The patient has been progressively getting weak at home. She got weak to the point where she was unable to get out of bed and she wasn't responding to her family members. Family noted that the patient was having also black tarry stools. No hematemesis. No abdominal distention. No abdominal pain. No nausea or vomiting. No previous history of GI bleeding. No chest pain. No cough or sputum production. No reported difficulty breathing. This patient was recently discharged from the hospital on 11/13/2017 after being admitted for an acute CVA. MRI of the brain was done at that time indicating abnormal signal within the left anterior frontal lobe and distribution of the left anterior cerebral artery as well as the occipital artery bilaterally. During the same hospital stay, the patient had an acute kidney injury that improved. At time of her discharge from the hospital the patient's renal function has improved significantly and the creatinine was down to 1.1. Also her mental status improved following the CVA. Note that the patient has had previous CVAs in the past and she had been treated with TPA successfully. During this most hospitalization, the patient was not found to be a candidate for TPA. MRI of the brain showed evidence of a left pontine infarct as well as old areas of infarction involving the left occipital and parietal area. I briefly saw this patient in the emergency department. I was told that she had 2 bouts of seizures. These were witnessed by the emergency physician. FEV1 was given and bases were aborted. At this point in time the patient is postictal and very much lethargic. Blood gases was performed immediately after she arrived to the ICU and the patient's pH was 7.4 with a pCO2 of 25 and pO2 400 and this was done while the patient on 100% on a beta facemask. The patient is already receiving her first unit of packed RBC transfusion and she' ll be receiving a total of 4 units for a hemoglobin of 3.7. She has done Eliquis on outpatient basis for long-term and to coagulation and the patient will be receiving care [facility] knowing that she had another do not take bowel movement in the emergency department. Her current INR is 1.4 with a PT of 12.8 and a PTT of 22.2. The patient has already received a total of 1 L of IV fluids in the form normocytic in the emergency department only. 2 more liters to follow. In the ICU. Renal function is impaired in the patient's creatinine is up to 2.2. Is also a component of non-anion gap metabolic acidosis with a serum bicarbonate is down to 14. On today's evaluation of 12/18/2017 I'm seeing this patient in follow-up in the intensive care unit. She is fortunately awake and much more alert compared to yesterday. It was noted that the patient's right side is extremely weak specially the right lower extremity and there is significant weakness in the right upper extremity and there is also facial weakness. Going back to the records, it was obvious that the patient was having issues with stroke along the left frontal lobe. I also noted that the MRI and MRA of the brain that was done back then raises the suspicion for carotid artery dissection. For that reason the patient was transferred to [facility] which she was evaluated and she was placed on Eliquis. The patient is currently off Eliquis pH is off anticoagulation based on her recent GI bleeding. I also noted the results of the CAT scan of the brain that showed a subacute stroke. No seizure activity has been noted. Discussed the case with the neurologist. When the process of obtaining the records from [facility] regarding the events that occurred there. Would also ordering another MRI/MRA of the brain based on the suspicion for previous dissection of the carotids. Meanwhile, the patient is on no antiepileptics pH is awake and alert. She received packed RBC transfusion and blood. Her hemoglobin is improved significantly. She is producing adequate amount of urine output. She is hemodynamically stable and she is on no pressors. Her hemoglobin is up to 8.2. Her creatinine is down to 1.7. The patient does not have any ongoing melanotic stools. In fact her stool is changed to brow. GI is on the case for now. No other significant events overnight. Today's evaluation the patient is calm and comfortable. The patient is not showing any signs of GI bleeding. The patient has a stable hemoglobin. She has been well resuscitated. No and to coagulation's for now. In terms of her neurologic functions, the patient did not have any further episodes of seizures. MRI MRA of the brain was repeated. The patient is confirmed to have a CVA along the anterior cerebral artery distribution involving the frontal lobe on the left and the patient has experienced right-sided weakness hemiplegia. The patient is able to swallow. She is awake and following commands and answering questions appropriately. No headaches. MRA of the brain showed no evidence of any carotid dissection. Some vascular variations involving the [place] of [place] was noted. Noted the patient was in a sinus rhythm during this whole admission and earlier this morning she wasn't atrial fibrillation with rapid ventricular response. This obviously raises the concern for approximately atrial fibrillation causing embolic stroke and causing the patient's recurrent CVAs. The patient is on metoprolol for rate control at a dose of 12.5 mg 3 times a day. We'll ask gastroenterology to proceed with EGD at a later stage. Currently on no anticoagulants. She is on IV fluids with half-normal saline today to 75 mL an hour. Renal function continues to improve in the creatinine is down to 1.25. Objective - Vital Signs Vital signs: Vital Signs Temp 98.3 F 12/19/17 12:00 Pulse 121 H 12/19/17 12:00 Resp 20 12/19/17 12:00 BP 104/53 12/19/17 12:00 Pulse Ox 100 12/19/17 12:00 Intake & Output 12/18/17 12/19/17 12/19/17 18:59 06:59 18:59 Intake Total 933 986 945 Output Total 783 740 500 Balance 150 246 445 Weight 64.3 kg 65.1 kg Intake: IV 933 936 465 .9 pressure bag 33 36 15 Sodium Chloride 0.45% 1, 450 900 450 000 ml @ 75 mls/hr IV . [id number] [facility] Rx#:[id number] Sodium Chloride 0.9% 1, 450 000 ml @ 75 mls/hr IV . [id number] [facility] Rx#:[id number] Oral 50 480 Output: Urine 783 740 500 Other: Voiding Method Indwelling Catheter Indwelling Catheter ABP, PAP, CO, CI - Last Documented Arterial Blood Pressure 119/52 - Exam the patient is awake and alert. There is a right facial weakness which was also noted yesterday. It is more evident on today's evaluation of the patient is more awake. She is and communicating. Head exam was generally normal. There was no scleral icterus or corneal arcus. Mucous membranes were moist. Neck was supple and without jugular venous distension, thyromegaly, or carotid bruits. Carotids were easily palpable bilaterally. There was no adenopathy.The patient has a left IJ triple-lumen catheter in place. Cardiac exam revealed the PMI to be normally situated and sized. The rhythm was regular and no extrasystoles were noted during several minutes of auscultation. The first and second heart sounds were normal and physiologic splitting of the second heart sound was noted. There were no murmurs, rubs, clicks, or gallops. Abdominal exam revealed normal bowel sounds. The abdomen was soft, non-tender, and without masses, organomegaly, or appreciable enlargement of the abdominal aorta. Extremities show diminished pulses otherwise there is no cyanosis or clubbing. No significant edema can be palpated. Neurologically, the patient is following commands. There is significant weakness in the right upper and right lower extremity related to a recent CVA. There is also a right facial weakness and asymmetry. Cough is weak. Motor function left-sided within normal limits. Pupils are equal and symmetrical and there is no nystagmus. She is awake and alert and following commands and answering questions. - Labs CBC & Chem 7: 12/19/17 03:30 12/19/17 03:30 Labs: Abnormal Lab Results - Last 24 Hours (Table) 12/18/17 12/19/17 12/19/17 Range/Units 22:58 03:30 03:30 RBC 3.06 L (3.80-5.40) m/uL Hgb 8.0 L (11.4-16.0) gm/dL Hct 25.9 L (34.0-46.0) % MCHC 30.8 L (31.0-37.0) g/dL RDW 16.1 H (11.5-15.5) % Chloride 125 H* (98-107) mmol/L Carbon Dioxide 19 L (22-30) mmol/L BUN 38 H (7-17) mg/dL Creatinine 1.25 H (0.52-1.04) mg/dL POC Glucose (mg/dL) 102 H (75-99) mg/dL Calcium 7.5 L (8.4-10.2) mg/dL Magnesium 2.4 H (1.6-2.3) mg/dL 12/19/17 Range/Units 06:54 RBC (3.80-5.40) m/uL Hgb (11.4-16.0) gm/dL Hct (34.0-46.0) % MCHC (31.0-37.0) g/dL RDW (11.5-15.5) % Chloride (98-107) mmol/L Carbon Dioxide (22-30) mmol/L BUN (7-17) mg/dL Creatinine (0.52-1.04) mg/dL POC Glucose (mg/dL) 101 H (75-99) mg/dL Calcium (8.4-10.2) mg/dL Magnesium (1.6-2.3) mg/dL Assessment and Plan Plan: assessment 1 acute GI bleed likely of an upper GI source. The patient presented with melanotic stools. The patient has been maintained on Plavix and Eliquis. The patient was treated with K centra and the patient was also given packed RBC transfusion and fluids. Hemoglobin is stabilized and it's up to 8.2 on today's evaluation. She is hemodynamically stable. No further episodes of bleeding. On 12/19/2018, no further bouts of GI bleeding. The patient's coagulopathy was reversed. The patient is currently off Plavix and off Eliquis. Awaiting EGD by gastroenterology to assess her ability to take anticoagulation in the future. 2 profound anemia with a hemoglobin of 3.7 secondary to GI blood loss, recovered and hemoglobin is 8. 3 acute on top of chronic renal injury. The patient's acute kidney injury is improving with fluid resuscitation 4 new onset seizure activity, currently in a postictal state, likely related to her previous strokes. Discussed the case with neurology and will wait and hold off on antiepileptic treatment for now 5 recent hospitalization for left anterior cerebral artery distribution CVA involving the left frontal lobe. I MRI of the brain was noted and the patient has completed a left frontal lobe CVA which is probably an embolic phenomena. 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 The patient presented with a normal sinus rhythm and subsequently she developed A. fib RVR. Currently on metoprolol. Currently on no anticoagulants. Echocardiogram was done during her most recent stay at [facility] and there is no indication of any intracardiac thrombus and there is no LV dysfunction and ejection fraction is around 50-55%. CHARLIE Off for rate control in regards to the atrial fibrillation and the patient on metoprolol. Consider the use of anticoagulation again after treating this patient from the GI standpoint. For that reason a EGD will be needed by gastroenterology to assess her risks for bleeding in the future. Meanwhile, the patient be kept off anticoagulation for now. The patient will receive no anticoagulants and the patient had an MRI/MRA of the brain and results were noted. No evidence of any carotid artery dissection. The patient is probably having embolic strokes. She'll be kept in ICU. Arterial line will be taken out to the later stage. Neurologist on the case. Proceed with EGD probably within next 24-48 hours.
--- NOTE | 2017-12-19 14:04 | P.PN ---
Subjective Progress Note Date: 12/19/17 Principal diagnosis: GI bleeding This 82-year-old female was admitted to the hospital with GI bleeding. Hemoglobin is down to 3.7 and patient was hypertensive. She did have a seizure activity in the ER. Probably suspected secondary to severe anemia and hypotension. The patient was up and subsequently has improved mentation back to usual status. The patient does have weakness of the right side especially in the right lower leg. She is otherwise alert and able to answer questions. The patient has had evidence suggestive of a new stroke on her MRI. It is not clear what her deficits were prior to this admission. The patient has increased tone on the right side suggestive that it is probably more of a older stroke. The patient has atrial fibrillation rapid rate this morning. The patient is being evaluated by cardiology and I did did review the case with Dr. Burrows the certified real estate appraiser and also Dr. Laws the nurse's assistant. Would recommend that he do an EGD. The patient is on require anticoagulation due to her strokes as well as atrial fibrillation history. The patient does not some degree bleeding at present. REVIEW OF SYSTEMS: Neuro: Denies any headaches dizziness. Psych: Denies anxiety depression feels oriented. Cardiac: Denies chest pain and angina palpitations. Respiratory: Denies shortness of breath cough. GI: Denies nausea vomiting or abdominal pain. No diarrhea or constipation, no bowel movement yet. : Denies dysuria hematuria. Extremities: Denies pain. No edema. Skin: Intact. Constitutional: No fever, chills. Objective - Vital Signs Vital signs: Vital Signs Temp 98.3 F 12/19/17 12:00 Pulse 121 H 12/19/17 12:00 Resp 20 12/19/17 12:00 BP 104/53 12/19/17 12:00 Pulse Ox 100 12/19/17 12:00 Intake & Output 12/18/17 12/19/17 12/19/17 18:59 06:59 18:59 Intake Total 933 986 945 Output Total 783 740 500 Balance 150 246 445 Weight 64.3 kg 65.1 kg Intake: IV 933 936 465 .9 pressure bag 33 36 15 Sodium Chloride 0.45% 1, 450 900 450 000 ml @ 75 mls/hr IV . [id number] [facility] Rx#:[id number] Sodium Chloride 0.9% 1, 450 000 ml @ 75 mls/hr IV . [id number] [facility] Rx#:[id number] Oral 50 480 Output: Urine 783 740 500 Other: Voiding Method Indwelling Catheter Indwelling Catheter ABP, PAP, CO, CI - Last Documented Arterial Blood Pressure 119/52 PHYSICAL EXAMINATION: Cooperative, at present in no acute distress. HEENT: Neck decreased range of motion no JVD no carotid bruits Chest: Clear to auscultation Cardiac: Normal S1-S2 with irregularly irregular rate and rhythm no murmur . Abdomen: Soft bowel sounds present. Extremities: Trace edema right around edema no tenderness Neurologically: Awake, alert, oriented with well-coordinated movements left side right side power 3/5 on the right upper extremity power 1/5 on the right lower extremity. Mild right facial droop speech is clear - Labs CBC & Chem 7: 12/19/17 03:30 12/19/17 03:30 Labs: Abnormal Lab Results - Last 24 Hours (Table) 12/18/17 12/19/17 12/19/17 Range/Units 22:58 03:30 03:30 RBC 3.06 L (3.80-5.40) m/uL Hgb 8.0 L (11.4-16.0) gm/dL Hct 25.9 L (34.0-46.0) % MCHC 30.8 L (31.0-37.0) g/dL RDW 16.1 H (11.5-15.5) % Chloride 125 H* (98-107) mmol/L Carbon Dioxide 19 L (22-30) mmol/L BUN 38 H (7-17) mg/dL Creatinine 1.25 H (0.52-1.04) mg/dL POC Glucose (mg/dL) 102 H (75-99) mg/dL Calcium 7.5 L (8.4-10.2) mg/dL Magnesium 2.4 H (1.6-2.3) mg/dL 12/19/17 Range/Units 06:54 RBC (3.80-5.40) m/uL Hgb (11.4-16.0) gm/dL Hct (34.0-46.0) % MCHC (31.0-37.0) g/dL RDW (11.5-15.5) % Chloride (98-107) mmol/L Carbon Dioxide (22-30) mmol/L BUN (7-17) mg/dL Creatinine (0.52-1.04) mg/dL POC Glucose (mg/dL) 101 H (75-99) mg/dL Calcium (8.4-10.2) mg/dL Magnesium (1.6-2.3) mg/dL Assessment and Plan Assessment: ASSESSMENT: 1. Anemia secondary to acute blood loss. 2. GI bleeding source undetermined. 3. Episode of a seizure suspect secondary to severe anemia and hypotension. 4. History of left frontal stroke. 5. 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 6. History of chronic renal failure. 7. Acute kidney injury. 8. History of hypertension. 9. Possible new stroke with the right-sided weakness 10. Atrial fibrillation rapid rate PLAN: Continue present medical regimen hemoglobin stable vitals are stable renal functions improving. Further evaluation by certified real estate appraiser and recommendations from them could start patient oral feeds if GI is not planning for an EGD today. Patient's plan for evaluation by cardiology. I also talked to Dr. Laws for possibly doing an EGD. The patient is going to require anticoagulation if there is no evidence of any active upper GI source of bleeding
--- NOTE | 2017-12-19 14:17 | EEG ---
ELECTROENCEPHALOGRAM REPORT DATE OF EE12/19/2017. REFERRING PHYSICIAN: Dr. Rolando Angel. CONSULTING INTERPRETING PHYSICIAN: Dr. Britt Galvan MD. ELECTROENCEPHALOGRAPHIC EXAMINATION REPORT: INDICATION FOR EXAMINATION: This patient is an 82-year-old female being evaluated for recent acute left anterior cerebral artery stroke and new onset of seizure activity. AGE: 82. EEG FINDINGS: A routine 21 channel awake digital EEG recording was accomplished utilizing the 10-20 international system with bipolar and referential montages. The background activity in the most alert resting state consists of a low to medium amplitude, poorly developed and poorly sustained 6 Hz activity over the posterior head regions. This posterior rhythm attenuates to eye opening. There is a small amount of low amplitude 18-20 Hz beta activity seen maximally over the anterior head regions. Muscle and movement artifact was observed on a few occasions during the tracing. Hyperventilation was not performed. Photic stimulation at flash frequencies of 2-30 Hz produced a minimal occipital driving response. No epileptiform discharges were seen. IMPRESSION: This EEG is moderately abnormal in a diffuse fashion due to slowing of the EEG background. The EEG failed to reveal any focal, lateralized, or epileptiform abnormalities. Clinical correlation is recommended. MMODL / IJN: [id number] /
[2017-12-19] MEDS: METOPROLOL TARTRATE 25 MG TAB PO SCH ×2 (16:18→21:13)
[2017-12-19] MEDS: ATORVASTATIN 20 MG TAB PO SCH (21:13)
[2017-12-20] MEDS: SODIUM CHLORIDE 0.45% 1,000 ML IV SCH ×2 (00:02→04:07)
[2017-12-20 05:39] LABS: Anisocytosis Slight; Basophils # (A) 0.1 k/uL (0-0.2); Basophils % (A) 1 %; Eosinophils # (A) 0.5 k/uL (0-0.7); Eosinophils % (A) 5 %; HCT 30.5 % (34.0-46.0); HGB 9.2 gm/dL (11.4-16.0); Hypochromasia Marked; Lymphocytes # (A) 1.6 k/uL (1.0-4.8); Lymphocytes % (A) 17 %; MCH 26.1 pg (25.0-35.0); MCHC 30.1 g/dL (31.0-37.0); MCV 86.7 fL (80.0-100.0); Mean Platelet Volume 7.6; Monocytes # (A) 0.6 k/uL (0-1.0); Monocytes % (A) 6 %; Neutrophils # (A) 6.7 k/uL (1.3-7.7); Neutrophils % (A) 71 %; Platelet Count 360 k/uL (150-450); Poikilocytosis Moderate; RBC 3.52 m/uL (3.80-5.40); RDW 16.6 % (11.5-15.5); WBC 9.5 k/uL (3.8-10.6)
[2017-12-20 05:49] LABS: INR 1.1 (<1.2); Prothrombin Time 10.4 sec (9.0-12.0)
[2017-12-20 05:52] LABS: Magnesium 2.1 mg/dL (1.6-2.3); Phosphorus 2.5 mg/dL (2.5-4.5)
[2017-12-20] MEDS: LEVOTHYROXINE 125 MCG TAB PO SCH (07:07)
[2017-12-20] MEDS: METOPROLOL TARTRATE 25 MG TAB PO SCH ×3 (07:08→21:14)
[2017-12-20 07:18] LABS: Glucose,Whole Blood 94 mg/dL (75-99)
--- NOTE | 2017-12-20 08:42 | XR ---
EXAMINATION TYPE: XR chest 1V DATE OF EXAM: 12/20/2017 COMPARISON: 12/19/2017 HISTORY: Shortness of breath TECHNIQUE: Single frontal view of the chest is obtained. FINDINGS: There is subsegmental consolidation bilaterally with tiny effusions. Left-sided central ca theter seen with tip overlying the right atrium. No sizable pneumothorax. Atherosclerotic change aort a. IMPRESSION: Persistent bilateral subsegmental consolidation and tiny effusions.
--- NOTE | 2017-12-20 09:06 | P.PN ---
Subjective Progress Note Date: 12/20/17 Principal diagnosis: Acute GI bleed, likely of an upper GI source, profound anemia, acute on chronic renal failure, new-onset seizure This is a 82-year-old female patient who came into the emergency department with massive GI bleed in hemoglobin level of 3.7. The patient has been progressively getting weak at home. She got weak to the point where she was unable to get out of bed and she wasn't responding to her family members. Family noted that the patient was having also black tarry stools. No hematemesis. No abdominal distention. No abdominal pain. No nausea or vomiting. No previous history of GI bleeding. No chest pain. No cough or sputum production. No reported difficulty breathing. This patient was recently discharged from the hospital on 11/13/2017 after being admitted for an acute CVA. MRI of the brain was done at that time indicating abnormal signal within the left anterior frontal lobe and distribution of the left anterior cerebral artery as well as the occipital artery bilaterally. During the same hospital stay, the patient had an acute kidney injury that improved. At time of her discharge from the hospital the patient's renal function has improved significantly and the creatinine was down to 1.1. Also her mental status improved following the CVA. Note that the patient has had previous CVAs in the past and she had been treated with TPA successfully. During this most hospitalization, the patient was not found to be a candidate for TPA. MRI of the brain showed evidence of a left pontine infarct as well as old areas of infarction involving the left occipital and parietal area. I briefly saw this patient in the emergency department. I was told that she had 2 bouts of seizures. These were witnessed by the emergency physician. FEV1 was given and bases were aborted. At this point in time the patient is postictal and very much lethargic. Blood gases was performed immediately after she arrived to the ICU and the patient's pH was 7.4 with a pCO2 of 25 and pO2 400 and this was done while the patient on 100% on a beta facemask. The patient is already receiving her first unit of packed RBC transfusion and she' ll be receiving a total of 4 units for a hemoglobin of 3.7. She has done Eliquis on outpatient basis for long-term and to coagulation and the patient will be receiving care [facility] knowing that she had another do not take bowel movement in the emergency department. Her current INR is 1.4 with a PT of 12.8 and a PTT of 22.2. The patient has already received a total of 1 L of IV fluids in the form normocytic in the emergency department only. 2 more liters to follow. In the ICU. Renal function is impaired in the patient's creatinine is up to 2.2. Is also a component of non-anion gap metabolic acidosis with a serum bicarbonate is down to 14. On today's evaluation of 12/18/2017 I'm seeing this patient in follow-up in the intensive care unit. She is fortunately awake and much more alert compared to yesterday. It was noted that the patient's right side is extremely weak specially the right lower extremity and there is significant weakness in the right upper extremity and there is also facial weakness. Going back to the records, it was obvious that the patient was having issues with stroke along the left frontal lobe. I also noted that the MRI and MRA of the brain that was done back then raises the suspicion for carotid artery dissection. For that reason the patient was transferred to [facility] which she was evaluated and she was placed on Eliquis. The patient is currently off Eliquis pH is off anticoagulation based on her recent GI bleeding. I also noted the results of the CAT scan of the brain that showed a subacute stroke. No seizure activity has been noted. Discussed the case with the neurologist. When the process of obtaining the records from [facility] regarding the events that occurred there. Would also ordering another MRI/MRA of the brain based on the suspicion for previous dissection of the carotids. Meanwhile, the patient is on no antiepileptics pH is awake and alert. She received packed RBC transfusion and blood. Her hemoglobin is improved significantly. She is producing adequate amount of urine output. She is hemodynamically stable and she is on no pressors. Her hemoglobin is up to 8.2. Her creatinine is down to 1.7. The patient does not have any ongoing melanotic stools. In fact her stool is changed to brow. GI is on the case for now. No other significant events overnight. Today's evaluation the patient is calm and comfortable. The patient is not showing any signs of GI bleeding. The patient has a stable hemoglobin. She has been well resuscitated. No and to coagulation's for now. In terms of her neurologic functions, the patient did not have any further episodes of seizures. MRI MRA of the brain was repeated. The patient is confirmed to have a CVA along the anterior cerebral artery distribution involving the frontal lobe on the left and the patient has experienced right-sided weakness hemiplegia. The patient is able to swallow. She is awake and following commands and answering questions appropriately. No headaches. MRA of the brain showed no evidence of any carotid dissection. Some vascular variations involving the kaw of Garcia was noted. Noted the patient was in a sinus rhythm during this whole admission and earlier this morning she wasn't atrial fibrillation with rapid ventricular response. This obviously raises the concern for approximately atrial fibrillation causing embolic stroke and causing the patient's recurrent CVAs. The patient is on metoprolol for rate control at a dose of 12.5 mg 3 times a day. We'll ask gastroenterology to proceed with EGD at a later stage. Currently on no anticoagulants. She is on IV fluids with half-normal saline today to 75 mL an hour. Renal function continues to improve in the creatinine is down to 1.25. On 12/20/2017 patient seen in follow-up in the intensive care unit. She is awake, alert, denies any acute distress, pulse ox on 2 L per nasal cannula is 100%, patient is afebrile, she does have episodes of tachycardia, currently heart rate is controlled. IV 0.45 normal saline at a rate of 75 ML per hour. Patient has had no episodes of GI bleeding since admission, she has received a total of 4 units packed red blood cells, 4 admission hemoglobin of 3.7 and her current hemoglobin is 9.2. Chest x-ray shows elevated hemidiaphragm on the right, otherwise relatively clear chest x-ray. Patient is awaiting her EGD today. Neurologically she is awake, and following commands and answering questions appropriately, she still has right-sided weakness, and right foot drop. No recurrent seizures. No leukocytosis, WBC is 9.5, Hgb 9.2, INR is 1.1 , sodium is 141, potassium is 4.0, chloride is 121, CO2 is 16, BUN is 19, creatinine 0.90. Objective - Vital Signs Vital signs: Vital Signs Temp 98.4 F 12/20/17 04:00 Pulse 98 12/20/17 07:00 Resp 17 12/20/17 07:00 BP 133/62 12/20/17 07:00 Pulse Ox 100 08/13/18 07:00 Intake & Output 12/19/17 12/20/17 12/20/17 18:59 06:59 18:59 Intake Total 1662 930 75 Output Total 940 800 45 Balance 722 130 30 Weight 65.4 kg Intake: IV 942 870 75 .9 pressure bag 42 Sodium Chloride 0.45% 1, 900 870 75 000 ml @ 75 mls/hr IV . [id number] Rx#:[id number] Oral 720 60 Output: Urine 940 800 45 Other: Voiding Method Indwelling Catheter Indwelling Catheter # Voids 4 ABP, PAP, CO, CI - Last Documented Arterial Blood Pressure 127/47 - Exam the patient is awake and alert. There is a right facial weakness which was also noted yesterday. It is more evident on today's evaluation of the patient is more awake. She is and communicating. Head exam was generally normal. There was no scleral icterus or corneal arcus. Mucous membranes were moist. Neck was supple and without jugular venous distension, thyromegaly, or carotid bruits. Carotids were easily palpable bilaterally. There was no adenopathy.The patient has a left IJ triple-lumen catheter in place. Cardiac exam revealed the PMI to be normally situated and sized. The rhythm was regular and no extrasystoles were noted during several minutes of auscultation. The first and second heart sounds were normal and physiologic splitting of the second heart sound was noted. There were no murmurs, rubs, clicks, or gallops. Lungs: Lung sounds are clear to auscultation. Abdominal exam revealed normal bowel sounds. The abdomen was soft, non-tender, and without masses, organomegaly, or appreciable enlargement of the abdominal aorta. Extremities show diminished pulses otherwise there is no cyanosis or clubbing. No significant edema can be palpated. Neurologically, the patient is following commands. There is significant weakness in the right upper and right lower extremity related to a recent CVA. There is also a right facial weakness and asymmetry. Cough is weak. Motor function left-sided within normal limits. Pupils are equal and symmetrical and there is no nystagmus. She is awake and alert and following commands and answering questions - Labs CBC & Chem 7: 12/20/17 04:35 12/20/17 04:35 Labs: Abnormal Lab Results - Last 24 Hours (Table) 12/20/17 12/20/17 Range/Units 04:35 04:35 RBC 3.52 L (3.80-5.40) m/uL Hgb 9.2 L (11.4-16.0) gm/dL Hct 30.5 L (34.0-46.0) % MCHC 30.1 L (31.0-37.0) g/dL RDW 16.6 H (11.5-15.5) % Chloride 121 H* (98-107) mmol/L Carbon Dioxide 16 L (22-30) mmol/L BUN 19 H (7-17) mg/dL Calcium 8.0 L (8.4-10.2) mg/dL Assessment and Plan Plan: Assessment: 1 acute GI bleed likely of an upper GI source. The patient presented with melanotic stools. The patient has been maintained on Plavix and Eliquis. The patient was treated with K centra and the patient was also given packed RBC transfusion and fluids. Hemoglobin is stabilized and it's up to 8.2 on today's evaluation. She is hemodynamically stable. No further episodes of bleeding. On 12/19/2018, no further bouts of GI bleeding. The patient's coagulopathy was reversed. The patient is currently off Plavix and off Eliquis. Awaiting EGD by gastroenterology to assess her ability to take anticoagulation in the future. 2 profound anemia with a hemoglobin of 3.7 secondary to GI blood loss, recovered and hemoglobin is 8. 3 acute on top of chronic renal injury. The patient's acute kidney injury is improving with fluid resuscitation 4 new onset seizure activity, currently in a postictal state, likely related to her previous strokes. Discussed the case with neurology and will wait and hold off on antiepileptic treatment for now 5 recent hospitalization for left anterior cerebral artery distribution CVA involving the left frontal lobe. I MRI of the brain was noted and the patient has completed a left frontal lobe CVA which is probably an embolic phenomena. 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 The patient presented with a normal sinus rhythm and subsequently she developed A. fib RVR. Currently on metoprolol. Currently on no anticoagulants. Echocardiogram was done during her most recent stay at [facility] and there is no indication of any intracardiac thrombus and there is no LV dysfunction and ejection fraction is around 50-55%. Plan: Patient remains off anticoagulation, has not had any recurrent episodes of GI bleeding, remains hemodynamically stable, today's hemoglobin is up to 9.2. Awaiting her EGD today. Continue half-normal saline at a rate of 75 ML per hour , if the EGD does not and the source of bleeding, have to consider restarting the patient on Eliquis. Continue post hemodynamic monitoring, and neurologic changes, recurrent seizures. I performed a history & physical examination of the patient and discussed their management with my nurse practitioner, China Haynes. I reviewed the nurse practitioner's note and agree with the documented findings and plan of care. Lung sounds are clear. The findings and the impression was discussed with the patient. I attest to the documentation by the nurse practitioner. Time with Patient: Greater than 30
[2017-12-20] MEDS: PANTOPRAZOLE 40 MG/10 ML VIAL IVP SCH (09:40)
[2017-12-20 12:01] LABS: Glucose,Whole Blood 100 mg/dL (75-99)
--- NOTE | 2017-12-20 12:34 | CDI ---
Last Revision, April 2017 Documentation Clarification Form Date: 12/20/2017 12:24:50 PM From: Crystal Martinez RN, CCDS Admit Date: 12/17/2017 3:31:00 PM Patient Name: Radha Del Angel Visit Number: [id number] ATTENTION: The Clinical Documentation Specialists (CDI) and [facility] Coding Staff appreciate your assistance in clarifying documentation. Please respond to the clarification below the line at the bottom and electronically sign. The CDI & [facility] Coding staff will review the response and follow-up if needed. Please note: Queries are made part of the Legal Health Record. If you have any questions, please contact the author of this message via ITS. Dr. 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 Nephrosclerosis, hypothyroidism Clinical Indicators: 12/17 Pulmonary Consult: "Chronic renal failure, hypertension..." 12/19 Attending Progress Note: "History of chronic renal failure." 11/11/17 Patients Baseline: BUN/CR/GFR: 32/1.4/36 Current BUN 97/71/38/19 CR: 2.2/1.76/1.25/.9 GFR: 21/27/41/61 Treatment: Patients medications include: IVF In order to capture the severity of condition, please clarify if the condition signifies: CKD Stage 1 (GFR > 90) CKD Stage 2 (GFR 60-89) CKD Stage 3 (GFR 30-59) CKD Stage 4 (GFR 15-29) CKD Stage 5 (GFR <15) ESRD Other, please specify Unable to determine Please continue to document in your progress notes and discharge summary in order to capture severity of illness and risk of mortality. Include clinical findings that support your diagnosis. MTDD
[2017-12-20] MEDS ORDERED: LIDOCAINE 1% INJ 10MG/ML (20 ML MDV) ONE (13:18)
[2017-12-20] MEDS ORDERED: PROPOFOL 10 MG/ML 20 ML VIAL IV ONE (13:18)
[2017-12-20] MEDS ORDERED: IV FLUID CONTINUATION 350 ML IV ONE (13:26)
--- NOTE | 2017-12-20 13:50 | P.PCN ---
Date of Procedure: 12/20/17 Procedure(s) Performed: Procedure: Esophagogastroduodenoscopy. Preoperative diagnosis: Anemia and suspected upper GI source of bleeding. Postoperative diagnosis: Small sliding hiatal hernia and minimal gastritis but no ulcers or active bleeding. Preparation and sedation: Was provided by anesthesia. Brief clinical history: The patient is an 82-year-old female who presented to the emergency room because of weakness that has progressed over the prior several days. According to her sister, the patient had maroon-colored bowel movement the morning of admission. She was found to have profound anemia with a hemoglobin of 3.7 for which he was transfused and her hemoglobin has remained stable since admission. The patient has history of recent CVA and was discharged from [facility] to rehab unit at [facility] and then was discharged home last week. She had no prior bleeding. She has been taking Plavix, eliquis as well as aspirin. Other details are summarized in the history and physical and dictated consultation and progress notes. This evaluation is to assess for a possible source of bleeding in the upper GI tract prior to resuming her anticoagulation. Procedure: With the patient on her left lateral decubitus position and after informed consent and adequate sedation, I passed the Olympus-GIF 160 video upper endoscope through the cricopharyngeus down the esophagus. GE junction was around 34 cm from the incisors and there was a small sliding hiatal hernia but no obvious esophagitis or complicated reflux disease. There were no mucosal tears or varices or bleeding. The endoscope was then passed into the stomach which was insufflated with air and inspected in detail including the retroflex view in the cardia. There was no obvious abnormalities noted upon first advancing the endoscope, although, I did note some friability secondary to the trauma of the endoscope towards the end of the exam. Pyloric channel, duodenal bulb, post bulbar area and descending duodenum appeared within normal limits without any evidence of ulcers or bleeding. All secretions encountered on this exam were clear or bilious in color. The patient tolerated the procedure well. Plan: The patient was reassured. Will allow regular diet as tolerated. She can be transferred out of the ICU since she is not having any active bleeding. I see no contraindication to resuming her antiplatelet therapy based on the findings on this exam today.
--- NOTE | 2017-12-20 14:45 | PN ---
PROGRESS NOTE DATE OF SERVICE: 12/20/2017. HISTORY: This patient has a history of atrial fibrillation and severe GI bleed. Patient also has a history of a recent stroke. The patient remains comfortable. Heart rate is between 100 to 120. EXAM: HEART: S1 and S2 normal. LUNGS: Clinically clear to auscultation and percussion. LABS: The patient's hemoglobin is 9 g. PLAN: Patient is undergoing EGD today. After EGD, if the heart rate remains elevated, we will increase the dose of Lopressor. MMODL / IJN: [id number] /
--- NOTE | 2017-12-20 14:53 | P.CONS ---
History of Present Illness - Chief Complaint Gait disturbance with recurrent stroke and right hemiparesthesias - History of Present Illness I had the opportunity to see patient for inpatient rehab consultation with regard to gait disturbance. She was admitted to [facility] December 17 with weakness and anemia, workup of GI bleed. Seen by Dr. Laws who did perform EGD and demonstrated small sliding hiatal hernia and mild gastritis. Also seen by Dr. Carrion. Seen by Dr. Mike Moura for recurrent stroke. Chest x-rays demonstrate persistent consolidation and effusions. MRI with acute left pericallosal infarct. 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 PT and OT prescribed although I am unable to find any notes. IV added speech. Previous functional history as elicited from patient: Patient known to me from recent inpatient rehab stay and we'll review those notes. She is a 82-year-old right-handed white female who is lives and 2 floor home with sister. Describes independent with cooking, laundry, driving, standing shower and gait without device. I will have to verify this as this seems inaccurate to my recollection. Denies tobacco or alcohol. PMD is Dr. Kowalski. Review of Systems Review of systems: ENT: Denies sneezes or discharge. Eyes: Denies discharge or photophobia. Cardiac: Denies chest pain or palpitation. Pulmonary: Denies cough or shortness of breath. Breast: Denies discharge or lumps. Gastrointestinal: Denies nausea, emesis, constipation, diarrhea. Genitourinary: Denies discharge or frequency. Musculoskeletal: Denies muscle or bone aches. Neurologic: At least mild generalized weakness but definite weakness right arm and leg with sensory loss. Endocrine: Denies shakes or sweats. Oncology: Denies cancers. Dermatologic: Denies rash, itching, pruritus. ALLERGY/immunology: Denies sneezes, rashes. 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 Chronic renal failure, hypertension, hyperlipidemia, hypothyroidism, history of rheumatic fever, history of scarlet fever, History of Any Multi-Drug Resistant Organisms: None Reported Past Surgical History: Adenoidectomy, Tonsillectomy Additional Past Surgical History / Comment(s): part of thyroid removed Past Anesthesia/Blood Transfusion Reactions: Unable to Obtain Additional Past Anesthesia/Blood Transfusion Reaction / Comm: patient states she had a hard time waking up after having anesthesia Past Psychological History: No Psychological Hx Reported Smoking Status: Never smoker Past Alcohol Use History: Unable to Obtain Past Drug Use History: Unable to Obtain - Past Family History Father Family Medical History: No Reported History Additional Family Medical History / Comment(s): parkinsons Mother History Unknown: Yes Family Medical History: Cancer, Diabetes Mellitus Additional Family Medical History / Comment(s): colon cancer Sister(s) Additional Family Medical History / Comment(s): breast cancer Medications and Allergies Home Medications Medication Instructions Recorded Confirmed Type Atenolol [Tenormin] 50 mg PO DAILY 08/31/15 12/17/17 History Clopidogrel [Plavix] 75 mg PO DAILY 08/31/15 12/17/17 History Famotidine [Pepcid] 40 mg PO DAILY 08/31/15 12/17/17 History Levothyroxine Sodium [Synthroid] 125 mcg PO DAILY 08/31/15 12/17/17 History Simvastatin [Zocor] 40 mg PO HS 08/31/15 12/17/17 History Ergocalciferol (Vitamin D2) 50,000 unit PO Q30D 05/12/17 12/17/17 History [Vitamin D2] Lisinopril [Zestril] 30 mg PO DAILY 11/12/17 12/17/17 History Apixaban [Eliquis] 5 mg PO BID 12/17/17 12/17/17 History Pantoprazole Sodium [Protonix] 40 mg PO DAILY 12/17/17 12/17/17 History Allergies Allergy/AdvReac Type Severity Reaction Status Date / Time codeine Allergy Rash/Hives Verified 12/17/17 13:02 ciprofloxacin AdvReac Diarrhea Verified 12/17/17 13:02 Physical Exam Vitals: Vital Signs Temp Pulse Resp BP Pulse Ox 12/20/17 14:00 122 H 24 142/85 99 12/20/17 13:00 120 H 17 142/85 100 12/20/17 12:00 98.4 F 125 H 18 123/65 99 12/20/17 11:00 112 H 20 138/75 100 12/20/17 10:00 119 H 20 141/76 100 12/20/17 09:00 96 18 91/55 100 12/20/17 08:00 98.2 F 116 H 20 115/71 99 12/20/17 07:00 98 17 133/62 100 12/20/17 06:00 86 18 114/58 100 12/20/17 05:00 134 H 18 127/75 99 12/20/17 04:00 98.4 F 123 H 19 106/60 100 12/20/17 03:00 109 H 19 118/71 99 12/20/17 02:00 119 H 19 133/77 99 12/20/17 01:00 105 H 20 114/62 99 12/20/17 00:00 97.9 F 117 H 22 120/66 99 12/19/17 23:00 120 H 21 129/82 99 12/19/17 22:00 113 H 21 115/60 100 12/19/17 21:00 109 H 22 120/65 100 12/19/17 20:00 97.5 F L 103 H 22 124/60 100 12/19/17 19:00 110 H 24 134/63 100 12/19/17 18:00 121 H 20 133/76 99 12/19/17 17:00 115 H 25 H 125/75 100 12/19/17 16:00 85 21 116/56 99 12/19/17 15:47 21 12/19/17 15:00 113 H 22 114/72 99 Intake and Output 12/19/17 12/20/17 12/20/17 22:59 06:59 14:59 Intake Total 915 570 650 Output Total 525 555 455 Balance 390 15 195 Intake: IV 615 570 650 .9 pressure bag 15 Sodium Chloride 0.45% 1, 600 570 600 000 ml @ 75 mls/hr IV . [id number] [facility] Rx#:[id number] Oral 300 Output: Urine 525 555 455 Other: Voiding Method Indwelling Catheter Indwelling Catheter Indwelling Catheter # Voids 4 Weight 65.4 kg Skin: Good color, texture, turgor. General: Medium build and comfortable appearance. Head: Normocephalic, atraumatic. Eyes: Symmetric. Pupils equal round. Ears: Symmetric. Hearing within normal limits. Mouth: Clear. Neck: Supple. Carotid without bruit. Cardiac: Regular rate and rhythm. Lungs: Clear anteriorly and posteriorly. Abdomen: Soft active nontender. Extremities: Normal tone. Neurological: Mental status: Alert, cooperative, pleasant. Cranial nerves: Symmetric facial tone and trapezius. Motor: Normal strength and isolation left arm and leg. Right arm and leg poor. Sensation: Intact throughout left side and depressed right side. DTRs: Symmetric and equal throughout. Mobility: Requires physical assistance for bed mobility. Results CBC & Chem 7: 12/20/17 04:35 12/20/17 04:35 Labs: Abnormal Lab Results - Last 24 Hours (Table) 12/20/17 12/20/17 12/20/17 Range/Units 04:35 04:35 11:58 RBC 3.52 L (3.80-5.40) m/uL Hgb 9.2 L (11.4-16.0) gm/dL Hct 30.5 L (34.0-46.0) % MCHC 30.1 L (31.0-37.0) g/dL RDW 16.6 H (11.5-15.5) % Chloride 121 H* (98-107) mmol/L Carbon Dioxide 16 L (22-30) mmol/L BUN 19 H (7-17) mg/dL POC Glucose (mg/dL) 100 H (75-99) mg/dL Calcium 8.0 L (8.4-10.2) mg/dL Assessment and Plan (1) Gastrointestinal hemorrhage Current Visit: Yes Status: Acute Code(s): K92.2 - GASTROINTESTINAL HEMORRHAGE, UNSPECIFIED SNOMED Code(s): 48403873 (2) CVA (cerebral vascular accident) Current Visit: No Status: Acute Code(s): I63.9 - CEREBRAL INFARCTION, UNSPECIFIED SNOMED Code(s): 215308006 Plan: Impression: 1. Medical debility. 2. GI bleed with Mild gastritis with mild sliding hiatal hernia as well. 3. Recurrent stroke with right hemiparesthesias, increased since previous hospitalizations, recently. Comments and plan: At this time PT and OT prescribed have added speech therapy. We'll follow therapies with yourself and we'll also review my previous notes with regard to recent inpatient rehab stay for benefit as well as any issues that may have occurred.
[2017-12-20 17:24] LABS: Glucose,Whole Blood 126 mg/dL (75-99)
--- NOTE | 2017-12-20 17:33 | PN ---
PROGRESS NOTE This is an 82-year-old white female who has had recurrent episodes of CVA in the past. The patient recently had a stroke, and at that time patient was referred to [facility]. Her condition stabilized. She was transferred to [facility] rehab unit and she recovered from the stroke there. But she was found to have anemia at that time and she was seen by Dr. Diaz at that time. As her hemoglobin started coming up, she did not undergo an endoscopic exam. She was discharged home from there and she was recovering from her stroke. The patient was placed back on Eliquis and Plavix and aspirin as she was on before as recommended by her conche loader and unloader and neurologist. The patient was brought to the emergency room with GI bleeding again and her hemoglobin in the ER was found to be 3.7 due to the GI blood loss. Patient was admitted to ICU and Dr. Montoya is seeing the patient for ICU management. The patient received multiple blood transfusions and today her hemoglobin is 9.2. Patient had an upper endoscopy by Dr. Pritchard this morning and apparently there was no bleeding source identified. Patient is back in ICU. She is alert, oriented, and neurologically no significant change. Apparently patient had seizure activity in the ER and the patient had an MRI which showed evidence of a possible new stroke. The patient is neurologically stable now. Hemoglobin also remains stable. Prognosis is guarded. Dr. Montoya is following the patient in the ICU. Neurologist, Dr. Galvan, has seen the patient during a previous admission. Will also get a neurology consultation. Prognosis is guarded. The prognosis and diagnosis and therapeutic plans were discussed in detail with the patient today. MMODL / IJN: [id number] /
--- NOTE | 2017-12-20 20:20 | P.PN ---
Subjective Progress Note Date: 12/20/17 Patient is being evaluated for recent GI bleed and history of left SELENE stroke and is examined in the ICU. 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 She was transferred to [facility] neurology ICU where she was evaluated by the neuro commercial loan reviewer. There was concern the patient may have had bilateral carotid artery dissection. She was placed initially on Plavix and aspirin at [facility] and then just prior to being discharged she developed an episode of acute onset of paroxysmal atrial fibrillation. She was recommended to go to inpatient rehab and later on [facility] on Plavix and aspirin therapy. Apparently her workup at [facility] did not show evidence for bilateral carotid artery dissection. She was recommended after 3 weeks to start on anticoagulation due to her paroxysmal atrial fibrillation. Patient apparently was started on Eloquis while she was in the inpatient rehab at later on [facility]. She was discharged home and was to continue with outpatient PT/OT evaluation. Patient noted some improvement with her right-sided weakness during this home PT evaluation and treatment. Unfortunately prior to her admission to hospital on 12/17/2017 she developed severe weakness and inability to stand. She was brought into the emergency room and was admitted to hospital on 12/17/2017. Her hemoglobin in the ER was 3.7. She was given 4 units of packed red blood cells as blood transfusion and her hemoglobin today is 8.0. She was seen by gastroenterology and Dr. Laws and is being considered for possible endoscopy procedure tomorrow. The patient was sent for an emergent MRI of the brain yesterday which was reviewed. MRI reveals evidence of acute ischemia involving the left anterior cerebral artery and slightly more pronounced as compared to previous MRI of the brain performed on 11/13/2017. Also there is a new area seen high in the left frontoparietal region which suggest a new area of infarction. Patient clearly had some deterioration with increase in right-sided weakness on admission to hospital. At this time she has been taken off of all anticoagulation medications including Plavix, aspirin , and Eliquis. She is to remain off of these anticoagulants until she is reevaluated by Dr. Laws. Her MRI of the brain failed to reveal any evidence of hemorrhage. She was able to complete a routine EEG today which was reviewed and is moderately slow with no evidence of any epileptiform discharges. We reviewed the results of the MRI and EEG today with the patient. Neurologically she is showing improvement in her mental status today. She will need PT OT reevaluation tomorrow for further ongoing treatment. We will await further recommendations for multiple specialists that are seeing this patient. Case was discussed today with the stroke specialists at [facility] over the phone Dr. Mcpherson, who will convey this information to her neurologist that had seen her during her admission in November. At this point she is to remain off of all anticoagulant treatments. She is showing signs of paroxysmal atrial fibrillation today and cardiology has been consulted. We are waiting further recommendations from cardiology in regards to management of her paroxysmal atrial fibrillation and risk of recurrent stroke. This patient's overall prognosis at this time remains very guarded given her multiple complex medical issues. We will continue close neurological follow-up with this patient in the intensive care unit. The patient was sent for EGD procedure today which apparently came back within normal limits with no acute findings for cause of GI bleeding. Case was discussed today with cardiology and they are recommending that she not be started on anticoagulant for at least a few days. They're recommending eloquent was at a dose of 2.5 mg twice a day. We have also discuss with cardiology the need for possible watchman device. Dr. Montemayor will discuss this with the cardiology specialists at [place] and [facility] in the next few days. The patient continues to demonstrate right- sided weakness. As noted MRI does reveal a new area of possible infarction in the left frontoparietal region. This would explain her new findings. We will await further recommendations for multiple specialists the nursing this patient. Case was discussed today with Dr. Carrion who agrees with our current treatment plan. Objective - Vital Signs Vital signs: Vital Signs Temp 98.4 F 12/20/17 16:00 Pulse 127 H 12/20/17 17:00 Resp 22 12/20/17 17:00 BP 116/67 12/20/17 17:00 Pulse Ox 99 12/20/17 17:00 Intake & Output 12/19/17 12/20/17 12/20/17 18:59 06:59 18:59 Intake Total 1662 930 875 Output Total 940 800 615 Balance 722 130 260 Weight 65.4 kg Intake: IV 942 870 875 .9 pressure bag 42 Sodium Chloride 0.45% 1, 900 870 825 000 ml @ 75 mls/hr IV . [id number] [facility] Rx#:[id number] Oral 720 60 Output: Urine 940 800 615 Other: Voiding Method Indwelling Catheter Indwelling Catheter Indwelling Catheter # Voids 4 ABP, PAP, CO, CI - Last Documented Arterial Blood Pressure 127/47 - Exam Physical Examination: PHYSICAL EXAMINATION: Patient is resting comfortably in bed. VITAL SIGNS: Blood pressure is [131/63]. Heart rate is [118]. Respiration is [23 ]. Temperature is [98.4]. HEENT: Head is atraumatic, neck is supple, there were no carotid bruits. CHEST: Lungs are clear to auscultation and percussion. CARDIAC: S1, S2 normal rate and rhythm. There is no murmur. ABDOMEN: Soft and nontender. Bowel sounds are present. EXTREMITIES: There is no pedal edema. Peripheral pulses are present. Neurological examination: Patient is awake alert and oriented 3. Her speech is slow and at times she does have some dysarthric speech. She is much more awake and alert today and is following all commands. Her memory and intellectual functions only slightly impaired. Cranial nerve examination: Cranial nerves II through XII are grossly intact. Motor examination: Patient has right pronator drift. Muscle tone is normal. Muscle strength testing reveals right-sided hemiparesis 3+/5 throughout. She continues to demonstrate right-sided hemiparesis on exam. Sensory exam was intact. Deep tendon reflexes: The DTRs are 1+ and symmetric. Plantar responses flexor bilaterally. Pronation gait cannot be assessed in this patient at this time. - Labs CBC & Chem 7: 12/20/17 04:35 12/20/17 04:35 Labs: Abnormal Lab Results - Last 24 Hours (Table) 12/20/17 12/20/17 12/20/17 Range/Units 04:35 04:35 11:58 RBC 3.52 L (3.80-5.40) m/uL Hgb 9.2 L (11.4-16.0) gm/dL Hct 30.5 L (34.0-46.0) % MCHC 30.1 L (31.0-37.0) g/dL RDW 16.6 H (11.5-15.5) % Chloride 121 H* (98-107) mmol/L Carbon Dioxide 16 L (22-30) mmol/L BUN 19 H (7-17) mg/dL POC Glucose (mg/dL) 100 H (75-99) mg/dL Calcium 8.0 L (8.4-10.2) mg/dL 12/20/17 Range/Units 17:22 RBC (3.80-5.40) m/uL Hgb (11.4-16.0) gm/dL Hct (34.0-46.0) % MCHC (31.0-37.0) g/dL RDW (11.5-15.5) % Chloride (98-107) mmol/L Carbon Dioxide (22-30) mmol/L BUN (7-17) mg/dL POC Glucose (mg/dL) 126 H (75-99) mg/dL Calcium (8.4-10.2) mg/dL Assessment and Plan (1) Gastrointestinal hemorrhage Current Visit: Yes Status: Acute Code(s): K92.2 - GASTROINTESTINAL HEMORRHAGE, UNSPECIFIED SNOMED Code(s): 56366960 (2) Acute encephalopathy Current Visit: No Status: Acute Code(s): G93.40 - ENCEPHALOPATHY, UNSPECIFIED SNOMED Code(s): 84439157 (3) Anemia Current Visit: Yes Status: Chronic Code(s): D64.9 - ANEMIA, UNSPECIFIED SNOMED Code(s): 829803728 (4) Carotid dissection, bilateral Current Visit: No Status: Acute Code(s): I77.71 - DISSECTION OF CAROTID ARTERY SNOMED Code(s): 333368980 (5) History of stroke Current Visit: No Status: Chronic Code(s): Z86.73 - PRSNL HX OF TIA (TIA), AND CEREB INFRC W/O RESID DEFICITS SNOMED Code(s): 544309052 Plan: This patient is a 82-year-old female who recently suffered a left anterior cerebral artery stroke and was transferred to [facility] on 11/13/2017 with MRA findings suggesting bilateral carotid artery dissection. Patient was admitted and treated at [facility] for several days and apparently was ruled out as having carotid artery dissection. She was placed on Plavix and aspirin and unfortunately developed paroxysmal atrial fibrillation just prior to discharge from [facility]. It was recommended that after 3 weeks she should be started on Eloquis. The patient completed inpatient rehab at [facility]. She was discharged home. She was brought into the emergency room on 12/17/2017 with profound weakness and severe anemia. Her hemoglobin in the ER was 3.7. She required 4 units of packed red blood cells per blood transfusion. Her hemoglobin today is 8.0. Patient was seen by gastroenterology and does require endoscopy procedure to rule out cause of acute GI bleeding. Patient is to remain off of all anticoagulant medications at this time. Cardiology was consulted today as she did go into paroxysmal atrial fibrillation this morning. We will await further recommendations from cardiology. Review of her MRI and EEG are as noted above. We will continue close neurological follow-up for this patient in the intensive care unit. Her overall prognosis at this time remains very guarded given her complex medical history and complications. Case was discussed today with Dr. Montemayor in terms of her overall cardiac status. She did undergo EGD procedure today which came back negative for any source of bleeding. Gastroenterology is recommending to restart Eliquis for long-term anticoagulation given her history of atrial fibrillation. Dr. Montemayor recommends to wait a few days prior to restarting anticoagulation. He is also recommending that the dose of Eliquis be reduced to 2.5 mg twice a day. She is not to be restarted on Plavix. Patient continues to demonstrate right-sided hemiparesis. She will require ongoing PTOT and possible rehab placement. We will await further recommendations from Dr. Hays. Case was discussed today at length with the patient at bedside. All of her questions were answered. She is aware of her overall guarded condition in the ICU this morning.
[2017-12-20] MEDS ORDERED: APIXABAN 5 MG TAB PO SCH (21:00)
[2017-12-20] MEDS: ATORVASTATIN 20 MG TAB PO SCH (21:14)
[2017-12-21] MEDS: SODIUM CHLORIDE 0.45% 1,000 ML IV SCH ×2 (03:38→21:37)
[2017-12-21 04:29] LABS: Anisocytosis Slight; Basophils % (A) 1 %; Eosinophils # (A) 0.5 k/uL (0-0.7); Eosinophils % (A) 6 %; HCT 28.9 % (34.0-46.0); HGB 9.1 gm/dL (11.4-16.0); Hypochromasia Marked; Lymphocytes # (A) 1.2 k/uL (1.0-4.8); Lymphocytes % (A) 17 %; MCH 26.9 pg (25.0-35.0); MCHC 31.7 g/dL (31.0-37.0); MCV 84.7 fL (80.0-100.0); Mean Platelet Volume 7.4; Monocytes # (A) 0.5 k/uL (0-1.0); Monocytes % (A) 7 %; Neutrophils % (A) 68 %; Platelet Count 339 k/uL (150-450); Poikilocytosis Moderate; RBC 3.41 m/uL (3.80-5.40); RDW 16.7 % (11.5-15.5); WBC 7.3 k/uL (3.8-10.6)
[2017-12-21 04:45] LABS: Calcium 7.9 mg/dL (8.4-10.2); Magnesium 1.9 mg/dL (1.6-2.3); Phosphorus 2.5 mg/dL (2.5-4.5); Potassium 3.6 mmol/L (3.5-5.1)
[2017-12-21] MEDS ORDERED: Magnesium Replacement Protocol 1 EACH MISC MISCELLANE PRN (05:15)
[2017-12-21] MEDS ORDERED: Potassium Replacement Protocol 1 EACH MISC MISCELLANE PRN (05:15)
[2017-12-21] MEDS: MAGNESIUM SULFATE-D5W PMX 1 GM in DEXTROSE/WATER 1 100ML.BAG IVPB SCH ×2 (05:59→07:01)
[2017-12-21] MEDS ORDERED: POTASSIUM CHLORIDE ER 20 MEQ TAB.ER PO SCH (06:00)
[2017-12-21] MEDS: LEVOTHYROXINE 125 MCG TAB PO SCH (06:04)
--- NOTE | 2017-12-21 08:49 | XR ---
EXAMINATION TYPE: XR chest 1V DATE OF EXAM: 12/21/2017 COMPARISON: 12/20/2017 HISTORY: Shortness of breath TECHNIQUE: Single frontal view of the chest is obtained. FINDINGS: There is subsegmental consolidation bilaterally with tiny effusions. Left-sided central ca theter seen with tip overlying the right atrium. No sizable pneumothorax. Atherosclerotic change aort a. Arthropathy of the shoulders. IMPRESSION: Stable bilateral subsegmental consolidation and tiny pleural effusion.
--- NOTE | 2017-12-21 09:31 | P.PN ---
Subjective Progress Note Date: 12/21/17 Principal diagnosis: Acute GI bleed, likely of an upper GI source, profound anemia, acute on chronic renal failure, new-onset seizure This is a 82-year-old female patient who came into the emergency department with massive GI bleed in hemoglobin level of 3.7. The patient has been progressively getting weak at home. She got weak to the point where she was unable to get out of bed and she wasn't responding to her family members. Family noted that the patient was having also black tarry stools. No hematemesis. No abdominal distention. No abdominal pain. No nausea or vomiting. No previous history of GI bleeding. No chest pain. No cough or sputum production. No reported difficulty breathing. This patient was recently discharged from the hospital on 11/13/2017 after being admitted for an acute CVA. MRI of the brain was done at that time indicating abnormal signal within the left anterior frontal lobe and distribution of the left anterior cerebral artery as well as the occipital artery bilaterally. During the same hospital stay, the patient had an acute kidney injury that improved. At time of her discharge from the hospital the patient's renal function has improved significantly and the creatinine was down to 1.1. Also her mental status improved following the CVA. Note that the patient has had previous CVAs in the past and she had been treated with TPA successfully. During this most hospitalization, the patient was not found to be a candidate for TPA. MRI of the brain showed evidence of a left pontine infarct as well as old areas of infarction involving the left occipital and parietal area. I briefly saw this patient in the emergency department. I was told that she had 2 bouts of seizures. These were witnessed by the emergency physician. FEV1 was given and bases were aborted. At this point in time the patient is postictal and very much lethargic. Blood gases was performed immediately after she arrived to the ICU and the patient's pH was 7.4 with a pCO2 of 25 and pO2 400 and this was done while the patient on 100% on a beta facemask. The patient is already receiving her first unit of packed RBC transfusion and she' ll be receiving a total of 4 units for a hemoglobin of 3.7. She has done Eliquis on outpatient basis for long-term and to coagulation and the patient will be receiving care [facility] knowing that she had another do not take bowel movement in the emergency department. Her current INR is 1.4 with a PT of 12.8 and a PTT of 22.2. The patient has already received a total of 1 L of IV fluids in the form normocytic in the emergency department only. 2 more liters to follow. In the ICU. Renal function is impaired in the patient's creatinine is up to 2.2. Is also a component of non-anion gap metabolic acidosis with a serum bicarbonate is down to 14. On today's evaluation of 12/18/2017 I'm seeing this patient in follow-up in the intensive care unit. She is fortunately awake and much more alert compared to yesterday. It was noted that the patient's right side is extremely weak specially the right lower extremity and there is significant weakness in the right upper extremity and there is also facial weakness. Going back to the records, it was obvious that the patient was having issues with stroke along the left frontal lobe. I also noted that the MRI and MRA of the brain that was done back then raises the suspicion for carotid artery dissection. For that reason the patient was transferred to [facility] which she was evaluated and she was placed on Eliquis. The patient is currently off Eliquis pH is off anticoagulation based on her recent GI bleeding. I also noted the results of the CAT scan of the brain that showed a subacute stroke. No seizure activity has been noted. Discussed the case with the neurologist. When the process of obtaining the records from [facility] regarding the events that occurred there. Would also ordering another MRI/MRA of the brain based on the suspicion for previous dissection of the carotids. Meanwhile, the patient is on no antiepileptics pH is awake and alert. She received packed RBC transfusion and blood. Her hemoglobin is improved significantly. She is producing adequate amount of urine output. She is hemodynamically stable and she is on no pressors. Her hemoglobin is up to 8.2. Her creatinine is down to 1.7. The patient does not have any ongoing melanotic stools. In fact her stool is changed to brow. GI is on the case for now. No other significant events overnight. Today's evaluation the patient is calm and comfortable. The patient is not showing any signs of GI bleeding. The patient has a stable hemoglobin. She has been well resuscitated. No and to coagulation's for now. In terms of her neurologic functions, the patient did not have any further episodes of seizures. MRI MRA of the brain was repeated. The patient is confirmed to have a CVA along the anterior cerebral artery distribution involving the frontal lobe on the left and the patient has experienced right-sided weakness hemiplegia. The patient is able to swallow. She is awake and following commands and answering questions appropriately. No headaches. MRA of the brain showed no evidence of any carotid dissection. Some vascular variations involving the [place] was noted. Noted the patient was in a sinus rhythm during this whole admission and earlier this morning she wasn't atrial fibrillation with rapid ventricular response. This obviously raises the concern for approximately atrial fibrillation causing embolic stroke and causing the patient's recurrent CVAs. The patient is on metoprolol for rate control at a dose of 12.5 mg 3 times a day. We'll ask gastroenterology to proceed with EGD at a later stage. Currently on no anticoagulants. She is on IV fluids with half-normal saline today to 75 mL an hour. Renal function continues to improve in the creatinine is down to 1.25. On 12/20/2017 patient seen in follow-up in the intensive care unit. She is awake, alert, denies any acute distress, pulse ox on 2 L per nasal cannula is 100%, patient is afebrile, she does have episodes of tachycardia, currently heart rate is controlled. IV 0.45 normal saline at a rate of 75 ML per hour. Patient has had no episodes of GI bleeding since admission, she has received a total of 4 units packed red blood cells, 4 admission hemoglobin of 3.7 and her current hemoglobin is 9.2. Chest x-ray shows elevated hemidiaphragm on the right, otherwise relatively clear chest x-ray. Patient is awaiting her EGD today. Neurologically she is awake, and following commands and answering questions appropriately, she still has right-sided weakness, and right foot drop. No recurrent seizures. No leukocytosis, WBC is 9.5, Hgb 9.2, INR is 1.1 , sodium is 141, potassium is 4.0, chloride is 121, CO2 is 16, BUN is 19, creatinine 0.90. On 12/21/2017 patient seen in follow-up in the intensive care unit. Patient underwent EGD yesterday and small sliding hiatal hernia and minimal gastritis but no ulcers or active bleeding was found. With GI service permission, Eliquis was restarted for anticoagulation for patient's chronic atrial fibrillation. However per neurology Eliquis was later discontinued. The recommendation from cardiology is to restart Eliquis in a few days, and reduced the dose to 2.5 mg twice daily. Patient remains off Plavix, she continues to have right-sided hemiparesis, and seems to be dysarthric. She has not had recurrence of melanotic stools, hemoglobin is 9.1, patient remains hemodynamically stable, not on any pressors. BUN is 14, creatinine 0.90. Her hyperchloremic metabolic acidosis is improving, chloride is down to 117, and CO2 is up to 20. She remains on IV half-normal saline at a rate of 75 ML per hour. Patient was started on the regular diet. From pulmonary standpoint she remains stable, difficulty breathing, no chest pain, no hemodynamic issues. Patient remains in A. fib, the rate is controlled, we'll start her anticoagulation a few more days, the rate is between 142 12/08/2017 BPM. Patient is afebrile. Objective - Vital Signs Vital signs: Vital Signs Temp 98.4 F 12/21/17 04:00 Pulse 118 H 12/21/17 07:00 Resp 18 12/21/17 07:00 BP 116/65 12/21/17 07:00 Pulse Ox 97 12/21/17 07:00 Intake & Output 12/20/17 12/21/17 12/21/17 18:59 06:59 18:59 Intake Total 950 1075 Output Total 665 1060 Balance 285 15 Weight 67.1 kg Intake: IV 950 1075 Magnesium Sulfate-D5w Pmx 100 1 gm In Dextrose/Water 1 100ml.bag @ 100 mls/hr IVPB Q1H [facility] Rx#: [id number] Sodium Chloride 0.45% 1, 900 975 000 ml @ 75 mls/hr IV . [id number] [facility] Rx#:[id number] Output: Urine 665 1060 Other: Voiding Method Indwelling Catheter Indwelling Catheter ABP, PAP, CO, CI - Last Documented Arterial Blood Pressure 127/47 - Exam the patient is awake and alert. There is a right facial weakness which was also noted yesterday. Patient seems to be dysarthric, and difficulty finding words Head exam was generally normal. There was no scleral icterus or corneal arcus. Mucous membranes were moist. Neck was supple and without jugular venous distension, thyromegaly, or carotid bruits. Carotids were easily palpable bilaterally. There was no adenopathy.The patient has a left IJ triple-lumen catheter in place. Cardiac exam revealed the PMI to be normally situated and sized. The rhythm was regular and no extrasystoles were noted during several minutes of auscultation. The first and second heart sounds were normal and physiologic splitting of the second heart sound was noted. There were no murmurs, rubs, clicks, or gallops. Lungs: Lung sounds are clear to auscultation. Abdominal exam revealed normal bowel sounds. The abdomen was soft, non-tender, and without masses, organomegaly, or appreciable enlargement of the abdominal aorta. Extremities show diminished pulses otherwise there is no cyanosis or clubbing. No significant edema can be palpated. Neurologically, the patient is following commands. There is significant weakness in the right upper and right lower extremity related to a recent CVA. There is also a right facial weakness and asymmetry. Cough is weak. Motor function left-sided within normal limits. Pupils are equal and symmetrical and there is no nystagmus. She is awake and alert, on today's exam patient seems to have trouble searching for words, and appears to be more dysarthric - Labs CBC & Chem 7: 12/21/17 04:03 12/21/17 04:03 Labs: Abnormal Lab Results - Last 24 Hours (Table) 12/20/17 12/20/17 12/21/17 Range/Units 11:58 17:22 04:03 RBC 3.41 L (3.80-5.40) m/uL Hgb 9.1 L (11.4-16.0) gm/dL Hct 28.9 L (34.0-46.0) % RDW 16.7 H (11.5-15.5) % Chloride (98-107) mmol/L Carbon Dioxide (22-30) mmol/L POC Glucose (mg/dL) 100 H 126 H (75-99) mg/dL Calcium (8.4-10.2) mg/dL 12/21/17 Range/Units 04:03 RBC (3.80-5.40) m/uL Hgb (11.4-16.0) gm/dL Hct (34.0-46.0) % RDW (11.5-15.5) % Chloride 117 H (98-107) mmol/L Carbon Dioxide 20 L (22-30) mmol/L POC Glucose (mg/dL) (75-99) mg/dL Calcium 7.9 L (8.4-10.2) mg/dL Assessment and Plan Plan: Assessment: 1 acute GI bleed likely of an upper GI source. The patient presented with melanotic stools. The patient has been maintained on Plavix and Eliquis. The patient was treated with K centra and the patient was also given packed RBC transfusion and fluids. Hemoglobin is stabilized and it's up to 8.2 on today's evaluation. She is hemodynamically stable. No further episodes of bleeding. On 12/19/2018, no further bouts of GI bleeding. The patient's coagulopathy was reversed. The patient is currently off Plavix and off Eliquis. Awaiting EGD by gastroenterology to assess her ability to take anticoagulation in the future. 2 profound anemia with a hemoglobin of 3.7 secondary to GI blood loss, recovered and hemoglobin is 9.1 3 acute on top of chronic renal injury. The patient's acute kidney injury is improving with fluid resuscitation 4 new onset seizure activity, currently in a postictal state, likely related to her previous strokes. Discussed the case with neurology and will wait and hold off on antiepileptic treatment for now 5 recent hospitalization for left anterior cerebral artery distribution CVA involving the left frontal lobe. I MRI of the brain was noted and the patient has completed a left frontal lobe CVA which is probably an embolic phenomena. 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 The patient presented with a normal sinus rhythm and subsequently she developed A. fib RVR. Currently on metoprolol. Currently on no anticoagulants. Echocardiogram was done during her most recent stay at [facility] and there is no indication of any intracardiac thrombus and there is no LV dysfunction and ejection fraction is around 50-55%. Plan: No recurrent episodes of melanotic stools, no nausea, no vomiting, no diarrhea. Hemodynamically patient is stable, today's hemoglobin is 9.1, continue IV half -normal saline rate of 75 ML per hour. She denies any chest pain, denies any dyspnea. Anticoagulation remains on hold for a few more days for bleeding precautions, he will be restarted in a few days per cardiology, at a reduced dose of 2.5 mg twice daily. Neurology is following, patient seems to have more trouble speech today, seems to be a bit more dysarthric and seems to be searching for words. We may have to re-evaluate her swallowing ability. Otherwise she has remained stable, and can be transferred out of the intensive care unit today to medical surgical floor with remote telemetry. I performed a history & physical examination of the patient and discussed their management with my nurse practitioner, China Haynes. I reviewed the nurse practitioner's note and agree with the documented findings and plan of care. Lung sounds are clear. The findings and the impression was discussed with the patient. I attest to the documentation by the nurse practitioner. Time with Patient: Greater than 30
[2017-12-21] MEDS: METOPROLOL TARTRATE 25 MG TAB PO SCH (09:39)
[2017-12-21] MEDS: PANTOPRAZOLE 40 MG/10 ML VIAL IVP SCH (09:39)
[2017-12-21] MEDS: METOPROLOL TARTRATE 50 MG TAB PO SCH ×2 (12:36→21:37)
--- NOTE | 2017-12-21 13:13 | PN ---
PROGRESS NOTE This patient was admitted with massive GI bleeding and with a hemoglobin of gram. The patient underwent upper GI endoscopy. No bleeding source has been identified. The patient's GI hemorrhages most likely secondary to excessive anticoagulation. The patient remains stable. The patient's hemoglobin is stable. Blood pressure is 130/80 mmHg. HEART: S1 and S2 normal. Lungs are clinically clear to auscultation and percussion. We will recommend to hold anticoagulation for next couple of days and after one week if the patient does not have any evidence of GI bleed, we will recommend to start the patient on Eliquis 2.5 mg b.i.d. after 2 to 3 days. MMODL / IJN: [id number] /
[2017-12-21 13:27] VITALS: BMI 23.8
--- NOTE | 2017-12-21 18:43 | P.PN ---
Subjective Progress Note Date: 12/21/17 Patient is being evaluated for recent GI bleed and history of left SELENE stroke and is examined in the ICU. 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 She was transferred to [facility] neurology ICU where she was evaluated by the neuro pond worker. There was concern the patient may have had bilateral carotid artery dissection. She was placed initially on Plavix and aspirin at [facility] and then just prior to being discharged she developed an episode of acute onset of paroxysmal atrial fibrillation. She was recommended to go to inpatient rehab and later on [facility] on Plavix and aspirin therapy. Apparently her workup at [facility] did not show evidence for bilateral carotid artery dissection. She was recommended after 3 weeks to start on anticoagulation due to her paroxysmal atrial fibrillation. Patient apparently was started on Eloquis while she was in the inpatient rehab at later on [facility]. She was discharged home and was to continue with outpatient PT/OT evaluation. Patient noted some improvement with her right-sided weakness during this home PT evaluation and treatment. Unfortunately prior to her admission to hospital on 12/17/2017 she developed severe weakness and inability to stand. She was brought into the emergency room and was admitted to hospital on 12/17/2017. Her hemoglobin in the ER was 3.7. She was given 4 units of packed red blood cells as blood transfusion and her hemoglobin today is 8.0. She was seen by gastroenterology and Dr. Laws and is being considered for possible endoscopy procedure tomorrow. The patient was sent for an emergent MRI of the brain yesterday which was reviewed. MRI reveals evidence of acute ischemia involving the left anterior cerebral artery and slightly more pronounced as compared to previous MRI of the brain performed on 11/13/2017. Also there is a new area seen high in the left frontoparietal region which suggest a new area of infarction. Patient clearly had some deterioration with increase in right-sided weakness on admission to hospital. At this time she has been taken off of all anticoagulation medications including Plavix, aspirin , and Eliquis. She is to remain off of these anticoagulants until she is reevaluated by Dr. Laws. Her MRI of the brain failed to reveal any evidence of hemorrhage. She was able to complete a routine EEG today which was reviewed and is moderately slow with no evidence of any epileptiform discharges. We reviewed the results of the MRI and EEG today with the patient. Neurologically she is showing improvement in her mental status today. She will need PT OT reevaluation tomorrow for further ongoing treatment. We will await further recommendations for multiple specialists that are seeing this patient. Case was discussed today with the stroke specialists at [facility] over the phone Dr. Mcpherson, who will convey this information to her neurologist that had seen her during her admission in November. At this point she is to remain off of all anticoagulant treatments. She is showing signs of paroxysmal atrial fibrillation today and cardiology has been consulted. We are waiting further recommendations from cardiology in regards to management of her paroxysmal atrial fibrillation and risk of recurrent stroke. This patient's overall prognosis at this time remains very guarded given her multiple complex medical issues. We will continue close neurological follow-up with this patient in the intensive care unit. The patient was sent for EGD procedure today which apparently came back within normal limits with no acute findings for cause of GI bleeding. Case was discussed today with cardiology and they are recommending that she not be started on anticoagulant for at least a few days. They are recommending Eloquis at a dose of 2.5 mg twice a day. We have also discuss with cardiology the need for possible watchman device. Dr. Montemayor will discuss this with the cardiology specialists at [facility] and [facility] in the next few days. The patient continues to demonstrate right- sided weakness. As noted MRI does reveal a new area of possible infarction in the left frontoparietal region. This finding on the MRI would explain new symptoms of weakness for this patient. Patient was transferred out of the intensive care unit today. Her hemoglobin today is 9.1. She continues have right-sided hemiparesis and mild dysarthric speech. As per cardiology she will be started on anticoagulation with Eloquis in 2-3 days. We will await further recommendations for multiple specialists who are comanaging this patient today. Overall prognosis at this time remains guarded. Objective - Vital Signs Vital signs: Vital Signs Temp 98.4 F 12/21/17 10:46 Pulse 107 H 12/21/17 13:40 Resp 18 12/21/17 13:40 BP 125/70 12/21/17 13:40 Pulse Ox 100 12/21/17 13:40 Intake & Output 12/20/17 12/21/17 12/21/17 18:59 06:59 18:59 Intake Total 950 1075 225 Output Total 665 1060 500 Balance 285 15 -275 Weight 67.1 kg 67.1 kg Intake: IV 950 1075 150 Magnesium Sulfate-D5w Pmx 100 1 gm In Dextrose/Water 1 100ml.bag @ 100 mls/hr IVPB Q1H [facility] Rx#: [id number] Sodium Chloride 0.45% 1, 900 975 150 000 ml @ 75 mls/hr IV . [id number] [facility] Rx#:[id number] Intake, IV Titration 75 Amount Sodium Chloride 0.45% 1, 75 000 ml @ 75 mls/hr IV . [id number] [facility] Rx#:[id number] Output: Urine 665 1060 500 Other: Voiding Method Indwelling Catheter Indwelling Catheter Indwelling Catheter ABP, PAP, CO, CI - Last Documented Arterial Blood Pressure 127/47 - Exam Physical Examination: PHYSICAL EXAMINATION: Patient is resting comfortably in bed. VITAL SIGNS: Blood pressure is [125/70]. Heart rate is [107]. Respiration is [16 ]. Temperature is [98.4]. HEENT: Head is atraumatic, neck is supple, there were no carotid bruits. CHEST: Lungs are clear to auscultation and percussion. CARDIAC: S1, S2 normal rate and rhythm. There is no murmur. ABDOMEN: Soft and nontender. Bowel sounds are present. EXTREMITIES: There is no pedal edema. Peripheral pulses are present. Neurological examination: Patient is awake alert and oriented 3. Her speech is slow and at times she does have some dysarthric speech. She is much more awake and alert today and is following all commands. Her memory and intellectual functions only slightly impaired. Cranial nerve examination: Cranial nerves II through XII are grossly intact. Motor examination: Patient has right pronator drift. Muscle tone is normal. Muscle strength testing reveals right-sided hemiparesis 3+/5 throughout. She continues to demonstrate right-sided hemiparesis on exam. Sensory exam was intact. Deep tendon reflexes: The DTRs are 1+ and symmetric. Plantar responses flexor bilaterally. Pronation gait cannot be assessed in this patient at this time. - Labs CBC & Chem 7: 12/21/17 04:03 12/21/17 04:03 Labs: Abnormal Lab Results - Last 24 Hours (Table) 12/20/17 12/21/17 12/21/17 Range/Units 17:22 04:03 04:03 RBC 3.41 L (3.80-5.40) m/uL Hgb 9.1 L (11.4-16.0) gm/dL Hct 28.9 L (34.0-46.0) % RDW 16.7 H (11.5-15.5) % Chloride 117 H (98-107) mmol/L Carbon Dioxide 20 L (22-30) mmol/L POC Glucose (mg/dL) 126 H (75-99) mg/dL Calcium 7.9 L (8.4-10.2) mg/dL Assessment and Plan (1) Gastrointestinal hemorrhage Current Visit: Yes Status: Acute Code(s): K92.2 - GASTROINTESTINAL HEMORRHAGE, UNSPECIFIED SNOMED Code(s): 51884575 (2) Acute encephalopathy Current Visit: No Status: Acute Code(s): G93.40 - ENCEPHALOPATHY, UNSPECIFIED SNOMED Code(s): 03129207 (3) Anemia Current Visit: Yes Status: Chronic Code(s): D64.9 - ANEMIA, UNSPECIFIED SNOMED Code(s): 817888203 (4) Carotid dissection, bilateral Current Visit: No Status: Acute Code(s): I77.71 - DISSECTION OF CAROTID ARTERY SNOMED Code(s): 422311363 (5) History of stroke Current Visit: No Status: Chronic Code(s): Z86.73 - PRSNL HX OF TIA (TIA), AND CEREB INFRC W/O RESID DEFICITS SNOMED Code(s): 562890008 Plan: This patient is a 82-year-old right-handed white female who was seen in neurology consultation for evaluation of acute right-sided weakness and possible extension of recent stroke. Patient was admitted to hospital with massive GI bleeding and an initial hemoglobin of 3.7. She was seen by gastroenterology and underwent an upper GI endoscopy procedure which revealed no acute source for bleeding. It is felt that her bleeding was due to excessive anticoagulation. She has been taken off of all anticoagulants due to her history of atrial fibrillation. She has history of paroxysmal atrial fibrillation and recent left hemispheric stroke. She is now going to be restarted only on Eloquis at a dose of 2.5 mg twice a day in 2-3 days. Cardiology is following the patient closely. She has had no further signs of GI bleeding. Her hemoglobin today is 9.1. She was transferred out of the intensive care unit to the selective care floor and is doing well. We will continue close neurological follow-up for the patient during this admission. Patient should continue with physical therapy evaluations. She may benefit from placement in [facility] at the time of discharge. Her overall prognosis at this time remains very guarded. We will continue close neurological follow-up for the patient during this admission.
[2017-12-21] MEDS: ATORVASTATIN 20 MG TAB PO SCH (21:37)
[2017-12-22] MEDS: LEVOTHYROXINE 125 MCG TAB PO SCH (06:43)
[2017-12-22] MEDS: PANTOPRAZOLE 40 MG TABLET PO SCH (08:44)
[2017-12-22] MEDS: METOPROLOL TARTRATE 50 MG TAB PO SCH ×3 (08:44→20:45)
--- NOTE | 2017-12-22 10:29 | P.PN ---
Subjective Progress Note Date: 12/22/17 Principal diagnosis: Acute GI bleed likely of an upper GI source, profound anemia, acute on chronic renal failure, new onset seizure This is a 82-year-old female patient who came into the emergency department with massive GI bleed in hemoglobin level of 3.7. The patient has been progressively getting weak at home. She got weak to the point where she was unable to get out of bed and she wasn't responding to her family members. Family noted that the patient was having also black tarry stools. No hematemesis. No abdominal distention. No abdominal pain. No nausea or vomiting. No previous history of GI bleeding. No chest pain. No cough or sputum production. No reported difficulty breathing. This patient was recently discharged from the hospital on 11/13/2017 after being admitted for an acute CVA. MRI of the brain was done at that time indicating abnormal signal within the left anterior frontal lobe and distribution of the left anterior cerebral artery as well as the occipital artery bilaterally. During the same hospital stay, the patient had an acute kidney injury that improved. At time of her discharge from the hospital the patient's renal function has improved significantly and the creatinine was down to 1.1. Also her mental status improved following the CVA. Note that the patient has had previous CVAs in the past and she had been treated with TPA successfully. During this most hospitalization, the patient was not found to be a candidate for TPA. MRI of the brain showed evidence of a left pontine infarct as well as old areas of infarction involving the left occipital and parietal area. I briefly saw this patient in the emergency department. I was told that she had 2 bouts of seizures. These were witnessed by the emergency physician. FEV1 was given and bases were aborted. At this point in time the patient is postictal and very much lethargic. Blood gases was performed immediately after she arrived to the ICU and the patient's pH was 7.4 with a pCO2 of 25 and pO2 400 and this was done while the patient on 100% on a beta facemask. The patient is already receiving her first unit of packed RBC transfusion and she' ll be receiving a total of 4 units for a hemoglobin of 3.7. She has done Eliquis on outpatient basis for long-term and to coagulation and the patient will be receiving care [facility] knowing that she had another do not take bowel movement in the emergency department. Her current INR is 1.4 with a PT of 12.8 and a PTT of 22.2. The patient has already received a total of 1 L of IV fluids in the form normocytic in the emergency department only. 2 more liters to follow. In the ICU. Renal function is impaired in the patient's creatinine is up to 2.2. Is also a component of non-anion gap metabolic acidosis with a serum bicarbonate is down to 14. On today's evaluation of 12/18/2017 I'm seeing this patient in follow-up in the intensive care unit. She is fortunately awake and much more alert compared to yesterday. It was noted that the patient's right side is extremely weak specially the right lower extremity and there is significant weakness in the right upper extremity and there is also facial weakness. Going back to the records, it was obvious that the patient was having issues with stroke along the left frontal lobe. I also noted that the MRI and MRA of the brain that was done back then raises the suspicion for carotid artery dissection. For that reason the patient was transferred to [facility] which she was evaluated and she was placed on Eliquis. The patient is currently off Eliquis pH is off anticoagulation based on her recent GI bleeding. I also noted the results of the CAT scan of the brain that showed a subacute stroke. No seizure activity has been noted. Discussed the case with the neurologist. When the process of obtaining the records from [facility] regarding the events that occurred there. Would also ordering another MRI/MRA of the brain based on the suspicion for previous dissection of the carotids. Meanwhile, the patient is on no antiepileptics pH is awake and alert. She received packed RBC transfusion and blood. Her hemoglobin is improved significantly. She is producing adequate amount of urine output. She is hemodynamically stable and she is on no pressors. Her hemoglobin is up to 8.2. Her creatinine is down to 1.7. The patient does not have any ongoing melanotic stools. In fact her stool is changed to brow. GI is on the case for now. No other significant events overnight. Today's evaluation the patient is calm and comfortable. The patient is not showing any signs of GI bleeding. The patient has a stable hemoglobin. She has been well resuscitated. No and to coagulation's for now. In terms of her neurologic functions, the patient did not have any further episodes of seizures. MRI MRA of the brain was repeated. The patient is confirmed to have a CVA along the anterior cerebral artery distribution involving the frontal lobe on the left and the patient has experienced right-sided weakness hemiplegia. The patient is able to swallow. She is awake and following commands and answering questions appropriately. No headaches. MRA of the brain showed no evidence of any carotid dissection. Some vascular variations involving the upper [place] of [place] was noted. Noted the patient was in a sinus rhythm during this whole admission and earlier this morning she wasn't atrial fibrillation with rapid ventricular response. This obviously raises the concern for approximately atrial fibrillation causing embolic stroke and causing the patient's recurrent CVAs. The patient is on metoprolol for rate control at a dose of 12.5 mg 3 times a day. We'll ask gastroenterology to proceed with EGD at a later stage. Currently on no anticoagulants. She is on IV fluids with half-normal saline today to 75 mL an hour. Renal function continues to improve in the creatinine is down to 1.25. On 12/20/2017 patient seen in follow-up in the intensive care unit. She is awake, alert, denies any acute distress, pulse ox on 2 L per nasal cannula is 100%, patient is afebrile, she does have episodes of tachycardia, currently heart rate is controlled. IV 0.45 normal saline at a rate of 75 ML per hour. Patient has had no episodes of GI bleeding since admission, she has received a total of 4 units packed red blood cells, 4 admission hemoglobin of 3.7 and her current hemoglobin is 9.2. Chest x-ray shows elevated hemidiaphragm on the right, otherwise relatively clear chest x-ray. Patient is awaiting her EGD today. Neurologically she is awake, and following commands and answering questions appropriately, she still has right-sided weakness, and right foot drop. No recurrent seizures. No leukocytosis, WBC is 9.5, Hgb 9.2, INR is 1.1 , sodium is 141, potassium is 4.0, chloride is 121, CO2 is 16, BUN is 19, creatinine 0.90. On 12/21/2017 patient seen in follow-up in the intensive care unit. Patient underwent EGD yesterday and small sliding hiatal hernia and minimal gastritis but no ulcers or active bleeding was found. With GI service permission, Eliquis was restarted for anticoagulation for patient's chronic atrial fibrillation. However per neurology Eliquis was later discontinued. The recommendation from cardiology is to restart Eliquis in a few days, and reduced the dose to 2.5 mg twice daily. Patient remains off Plavix, she continues to have right-sided hemiparesis, and seems to be dysarthric. She has not had recurrence of melanotic stools, hemoglobin is 9.1, patient remains hemodynamically stable, not on any pressors. BUN is 14, creatinine 0.90. Her hyperchloremic metabolic acidosis is improving, chloride is down to 117, and CO2 is up to 20. She remains on IV half-normal saline at a rate of 75 ML per hour. Patient was started on the regular diet. From pulmonary standpoint she remains stable, difficulty breathing, no chest pain, no hemodynamic issues. Patient remains in A. fib, the rate is controlled, we'll start her anticoagulation a few more days, the rate is between 142 12/08/2017 BPM. Patient is afebrile. The patient is seen again today 12/22/2017 in follow-up on the selective care unit. She is currently awake and alert in no acute distress. She has no pulmonary complaints. Maintaining good O2 saturations in the upper 90s on room air. She's been afebrile. Hemodynamically stable. She did undergo EGD which revealed a small sliding hiatal hernia minimal gastritis but no acute active bleeding. Most recent hemoglobin 9.1. Objective - Vital Signs Vital signs: Vital Signs Temp 97.1 F L 12/22/17 08:00 Pulse 90 12/22/17 08:00 Resp 18 12/22/17 08:00 BP 152/67 12/22/17 08:00 Pulse Ox 98 12/22/17 08:00 Intake & Output 12/21/17 12/22/17 12/22/17 18:59 06:59 18:59 Intake Total 465 650 300 Output Total 500 Balance -35 650 300 Weight 67.1 kg 69 kg Intake: IV 150 650 Sodium Chloride 0.45% 1, 150 650 000 ml @ 75 mls/hr IV . [id number] [facility] Rx#:[id number] Intake, IV Titration 75 Amount Sodium Chloride 0.45% 1, 75 000 ml @ 75 mls/hr IV . [id number] [facility] Rx#:[id number] Oral 240 300 Output: Urine 500 Other: Voiding Method Bedpan Bedpan Diaper Diaper Incontinent Incontinent # Voids 2 ABP, PAP, CO, CI - Last Documented Arterial Blood Pressure 127/47 - Exam the patient is awake and alert. There is a right facial weakness which was also noted yesterday. Patient seems to be dysarthric, and difficulty finding words Head exam was generally normal. There was no scleral icterus or corneal arcus. Mucous membranes were moist. Neck was supple and without jugular venous distension, thyromegaly, or carotid bruits. Carotids were easily palpable bilaterally. There was no adenopathy. Cardiac exam revealed the PMI to be normally situated and sized. The rhythm was regular and no extrasystoles were noted during several minutes of auscultation. The first and second heart sounds were normal and physiologic splitting of the second heart sound was noted. There were no murmurs, rubs, clicks, or gallops. Lungs: Lung sounds are clear to auscultation. Abdominal exam revealed normal bowel sounds. The abdomen was soft, non-tender, and without masses, organomegaly, or appreciable enlargement of the abdominal aorta. Extremities show diminished pulses otherwise there is no cyanosis or clubbing. No significant edema can be palpated. Neurologically, the patient is following commands. There is significant weakness in the right upper and right lower extremity related to a recent CVA. There is also a right facial weakness and asymmetry. Cough is weak. Motor function left-sided within normal limits. Pupils are equal and symmetrical and there is no nystagmus. She is awake and alert, on today's exam patient seems to have trouble searching for words, - Labs CBC & Chem 7: 12/21/17 04:03 12/21/17 04:03 Assessment and Plan Assessment: Assessment: 1 acute GI bleed likely of an upper GI source. The patient presented with melanotic stools. The patient has been maintained on Plavix and Eliquis. The patient was treated with K centra and the patient was also given packed RBC transfusion and fluids. Hemoglobin is stabilized and it's up to 9.1 on today's evaluation. She is hemodynamically stable. No further episodes of bleeding. EGD revealed no evidence of active bleeding. 2 profound anemia with a hemoglobin of 3.7 secondary to GI blood loss, recovered and hemoglobin is 9.1 3 acute on top of chronic renal injury. The patient's acute kidney injury is improving with fluid resuscitation 4 new onset seizure activity, currently in a postictal state, likely related to her previous strokes. Discussed the case with neurology and will wait and hold off on antiepileptic treatment for now 5 recent hospitalization for left anterior cerebral artery distribution CVA involving the left frontal lobe. I MRI of the brain was noted and the patient has completed a left frontal lobe CVA which is probably an embolic phenomena. 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 The patient presented with a normal sinus rhythm and subsequently she developed A. fib RVR. Currently on metoprolol. Currently on no anticoagulants. Echocardiogram was done during her most recent stay at [facility] and there is no indication of any intracardiac thrombus and there is no LV dysfunction and ejection fraction is around 50-55%. Plan: The patient was seen and evaluated by Dr. Montoya. She is currently stable from the pulmonary and critical care standpoint. We'll follow the patient on as- needed basis. I, the cosigning physician, performed a history & physical examination of the patient. Lungs sounds are clear. Maintaining good O2 saturations in the 90s on room air. I discussed the assessment and plan of care with my nurse practitioner, Love Rodriguez. I attest to the above note as dictated by her.
[2017-12-22] MEDS: SODIUM CHLORIDE 0.45% 1,000 ML IV SCH ×2 (12:15→18:24)
[2017-12-22] MEDS: APIXABAN 2.5 MG TABLET PO SCH ×2 (12:44→20:44)
--- NOTE | 2017-12-22 19:25 | PN ---
PROGRESS NOTE DATE OF SERVICE: 12/22/2017 82-year-old white female who was brought to the emergency room with acute GI bleeding and in the ER, hemoglobin was 3.7. She was admitted to ICU and she received multiple packed RBC transfusion and hemoglobin came up to higher than 9 in the ICU. Patient was seen by Dr. Montoya for ICU management. She was also seen by Dr. Pritchard and he did upper endoscopy and there was no bleeding source noted in the stomach. Patient has been on Eliquis for paroxysmal atrial fibrillation and also she has been on Plavix and aspirin and the these blood thinners are being held. When her condition became stable, she was transferred out of ICU. Currently patient seems to be feeling good and she is alert and oriented and vital signs are stable. In the emergency room, she also had seizure activity and Dr. Galvan saw the patient in consultation and he is also following the patient. The patient is getting physical therapy and Dr. Hays saw the patient for rehab evaluation. Overall prognosis is guarded. We will continue to monitor hemoglobin and also physical therapy. Prognosis is guarded. MMODL / IJN: [id number] /
--- NOTE | 2017-12-22 19:25 | PN ---
PROGRESS NOTE DATE OF SERVICE: 12/22/2017 This is an 82-year-old white female who was admitted with acute GI bleeding and her hemoglobin in the ER was found to be 3.7. Patient was admitted to ICU. The patient had multiple packed RBC transfusions and hemoglobin is now around 9. The patient was transferred out of ICU when her condition stabilized. Currently, patient seems to be alert and oriented and getting continued physical therapy. The patient has had seizure activity in the ER. Dr. Galvan is also following the patient. She is also known to have a atrial fibrillation and patient has been on Eliquis and Plavix and aspirin. These are being held now. The patient was seen by Dr. Hays in consultation and patient is being evaluated by him for inpatient rehabilitation. The patient had an upper endoscopy by Dr. Pritchard. EGD did not show any bleeding source in the stomach. Overall prognosis is guarded. We will repeat CBC tomorrow and if her condition seems to be stable, probably she will be transferred later on to [facility] Unit under Dr. Hays's care tomorrow. MMODL / IJN: [id number] /
[2017-12-22] MEDS: ATORVASTATIN 20 MG TAB PO SCH (20:44)
--- NOTE | 2017-12-22 21:02 | PN ---
PROGRESS NOTE This patient was admitted with GI bleed. The patient has a history of paroxysmal atrial fibrillation. The patient however was on the 5th floor yesterday and transferred because of the conversion pauses. Denies any dizziness or lightheadedness. The patient's heart rate is 76 per minute, blood pressure is 150/71 mmHg. First and second heart sounds are normal. Lungs are clinically clear to auscultation and percussion. Patient has remained stable. There is no active source of GI bleeding. Patient is not having any black stools and the patient's hemoglobin is stable. We will start her on Eliquis 2.5 mg b.i.d. and we will not give her any aspirin or Plavix. MMODL / IJN: [id number] /
--- NOTE | 2017-12-22 23:45 | P.PN ---
Subjective Progress Note Date: 12/22/17 Patient is being evaluated for recent GI bleed and history of left SELENE stroke and is examined in the ICU. 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 She was transferred to [facility] neurology ICU where she was evaluated by the neuro balance sheet analyst. There was concern the patient may have had bilateral carotid artery dissection. She was placed initially on Plavix and aspirin at [facility] and then just prior to being discharged she developed an episode of acute onset of paroxysmal atrial fibrillation. She was recommended to go to inpatient rehab and later on [facility] on Plavix and aspirin therapy. Apparently her workup at [facility] did not show evidence for bilateral carotid artery dissection. She was recommended after 3 weeks to start on anticoagulation due to her paroxysmal atrial fibrillation. Patient apparently was started on Eloquis while she was in the inpatient rehab at later on [facility]. She was discharged home and was to continue with outpatient PT/OT evaluation. Patient noted some improvement with her right-sided weakness during this home PT evaluation and treatment. Unfortunately prior to her admission to hospital on 12/17/2017 she developed severe weakness and inability to stand. She was brought into the emergency room and was admitted to hospital on 12/17/2017. Her hemoglobin in the ER was 3.7. She was given 4 units of packed red blood cells as blood transfusion and her hemoglobin today is 8.0. She was seen by gastroenterology and Dr. Laws and is being considered for possible endoscopy procedure tomorrow. The patient was sent for an emergent MRI of the brain yesterday which was reviewed. MRI reveals evidence of acute ischemia involving the left anterior cerebral artery and slightly more pronounced as compared to previous MRI of the brain performed on 11/13/2017. Also there is a new area seen high in the left frontoparietal region which suggest a new area of infarction. Patient clearly had some deterioration with increase in right-sided weakness on admission to hospital. At this time she has been taken off of all anticoagulation medications including Plavix, aspirin , and Eliquis. She is to remain off of these anticoagulants until she is reevaluated by Dr. Laws. Her MRI of the brain failed to reveal any evidence of hemorrhage. She was able to complete a routine EEG today which was reviewed and is moderately slow with no evidence of any epileptiform discharges. We reviewed the results of the MRI and EEG today with the patient. Neurologically she is showing improvement in her mental status today. She will need PT OT reevaluation tomorrow for further ongoing treatment. We will await further recommendations for multiple specialists that are seeing this patient. Case was discussed today with the stroke specialists at [facility] over the phone Dr. Mcpherson, who will convey this information to her neurologist that had seen her during her admission in November. At this point she is to remain off of all anticoagulant treatments. She is showing signs of paroxysmal atrial fibrillation today and cardiology has been consulted. We are waiting further recommendations from cardiology in regards to management of her paroxysmal atrial fibrillation and risk of recurrent stroke. This patient's overall prognosis at this time remains very guarded given her multiple complex medical issues. We will continue close neurological follow-up with this patient in the intensive care unit. The patient was sent for EGD procedure today which apparently came back within normal limits with no acute findings for cause of GI bleeding. Case was discussed today with cardiology and they are recommending that she not be started on anticoagulant for at least a few days. They are recommending Eloquis at a dose of 2.5 mg twice a day. We have also discuss with cardiology the need for possible watchman device. Dr. Montemayor will discuss this with the cardiology specialists at [place] and [facility] in the next few days. The patient continues to demonstrate right- sided weakness. As noted MRI does reveal a new area of possible infarction in the left frontoparietal region. This finding on the MRI would explain new symptoms of weakness for this patient. Patient was transferred out of the intensive care unit today. Her hemoglobin today is 9.1. She continues have right-sided hemiparesis and mild dysarthric speech. As per cardiology she will be started on anticoagulation today. She is to start on Eloquis 2.5 mg twice a day as her only treatment without use of Plavix or aspirin. Overall prognosis at this time remains guarded. Objective - Vital Signs Vital signs: Vital Signs Temp 98.5 F 12/22/17 15:28 Pulse 76 12/22/17 15:28 Resp 18 12/22/17 15:28 BP 150/71 12/22/17 15:28 Pulse Ox 98 12/22/17 15:28 Intake & Output 12/22/17 12/22/17 12/23/17 06:59 18:59 06:59 Intake Total 650 780 Balance 650 780 Weight 69 kg Intake: IV 650 Sodium Chloride 0.45% 1, 650 000 ml @ 75 mls/hr IV . [id number] [facility] Rx#:[id number] Oral 780 Other: Voiding Method Bedpan Bedpan Diaper Diaper Incontinent Incontinent # Voids 2 3 ABP, PAP, CO, CI - Last Documented Arterial Blood Pressure 127/47 - Exam Physical Examination: PHYSICAL EXAMINATION: Patient is resting comfortably in bed. VITAL SIGNS: Blood pressure is [150/71]. Heart rate is [76]. Respiration is [18] . Temperature is [98.5]. HEENT: Head is atraumatic, neck is supple, there were no carotid bruits. CHEST: Lungs are clear to auscultation and percussion. CARDIAC: S1, S2 normal rate and rhythm. There is no murmur. ABDOMEN: Soft and nontender. Bowel sounds are present. EXTREMITIES: There is no pedal edema. Peripheral pulses are present. Neurological examination: Patient is awake alert and oriented 3. Her speech is slow and at times she does have some dysarthric speech. She is much more awake and alert today and is following all commands. Her memory and intellectual functions only slightly impaired. Cranial nerve examination: Cranial nerves II through XII are grossly intact. Motor examination: Patient has right pronator drift. Muscle tone is normal. Muscle strength testing reveals right-sided hemiparesis 3+/5 throughout. She continues to demonstrate right-sided hemiparesis on exam. Sensory exam was intact. Deep tendon reflexes: The DTRs are 1+ and symmetric. Plantar responses flexor bilaterally. Pronation gait cannot be assessed in this patient at this time. - Labs CBC & Chem 7: 12/21/17 04:03 12/21/17 04:03 Assessment and Plan (1) Gastrointestinal hemorrhage Current Visit: Yes Status: Acute Code(s): K92.2 - GASTROINTESTINAL HEMORRHAGE, UNSPECIFIED SNOMED Code(s): 59537305 (2) Acute encephalopathy Current Visit: No Status: Acute Code(s): G93.40 - ENCEPHALOPATHY, UNSPECIFIED SNOMED Code(s): 99598410 (3) Anemia Current Visit: Yes Status: Chronic Code(s): D64.9 - ANEMIA, UNSPECIFIED SNOMED Code(s): 032850256 (4) Carotid dissection, bilateral Current Visit: No Status: Acute Code(s): I77.71 - DISSECTION OF CAROTID ARTERY SNOMED Code(s): 078751733 (5) History of stroke Current Visit: No Status: Chronic Code(s): Z86.73 - PRSNL HX OF TIA (TIA), AND CEREB INFRC W/O RESID DEFICITS SNOMED Code(s): 316346960 Plan: This patient is a 82-year-old right-handed white female who was seen in neurology consultation for evaluation of acute right-sided weakness and possible extension of recent stroke. Patient was admitted to hospital with massive GI bleeding and an initial hemoglobin of 3.7. She was seen by gastroenterology and underwent an upper GI endoscopy procedure which revealed no acute source for bleeding. It is felt that her bleeding was due to excessive anticoagulation. She has been taken off of all anticoagulants due to her history of atrial fibrillation. She has history of paroxysmal atrial fibrillation and recent left hemispheric stroke. She is now going to be restarted only on Eloquis at a dose of 2.5 mg twice a day in 2-3 days. Cardiology is following the patient closely. She has had no further signs of GI bleeding. Her hemoglobin today is 9.1. She was transferred out of the intensive care unit to the selective care floor and is doing well. We will continue close neurological follow-up for the patient during this admission. Patient should continue with physical therapy evaluations. She may benefit from placement in subacute rehab at the time of discharge. Her overall prognosis at this time remains very guarded. She was seen by cardiology today and has been restarted on Eloquis 2.5 mg twice a day. We will continue close neurological follow-up for the patient during this admission. Her overall prognosis at this time remains guarded.
[2017-12-23] MEDS: SODIUM CHLORIDE 0.45% 1,000 ML IV SCH ×2 (00:18→11:36)
[2017-12-23] MEDS: DILTIAZEM 50 MG in SODIUM CHLORIDE 0.9% 40 ML IV SCH ×2 (06:10→15:57)
[2017-12-23] MEDS: LEVOTHYROXINE 125 MCG TAB PO SCH (06:29)
[2017-12-23 06:31] LABS: Anisocytosis Slight; Basophils % (A) 1 %; Eosinophils # (A) 0.4 k/uL (0-0.7); Eosinophils % (A) 6 %; HGB 9.2 gm/dL (11.4-16.0); Hypochromasia Marked; Lymphocytes # (A) 1.3 k/uL (1.0-4.8); Lymphocytes % (A) 21 %; MCH 27.6 pg (25.0-35.0); MCHC 31.8 g/dL (31.0-37.0); MCV 86.8 fL (80.0-100.0); Mean Platelet Volume 7.3; Monocytes # (A) 0.4 k/uL (0-1.0); Monocytes % (A) 6 %; Neutrophils # (A) 3.9 k/uL (1.3-7.7); Neutrophils % (A) 64 %; Platelet Count 269 k/uL (150-450); Poikilocytosis Moderate; RBC 3.34 m/uL (3.80-5.40); RDW 16.3 % (11.5-15.5); WBC 6.1 k/uL (3.8-10.6)
[2017-12-23] MEDS: METOPROLOL TARTRATE 50 MG TAB PO SCH ×3 (08:35→19:34)
[2017-12-23] MEDS: APIXABAN 2.5 MG TABLET PO SCH ×2 (08:35→19:34)
[2017-12-23] MEDS: PANTOPRAZOLE 40 MG TABLET PO SCH (08:35)
--- NOTE | 2017-12-23 16:27 | PN ---
PROGRESS NOTE DATE OF SERVICE: 12/23/2017 HISTORY OF PRESENT ILLNESS: This is an 82-year-old white female who was brought to the emergency room with acute GI bleeding and she was found to have a hemoglobin of 3.9, and the patient was admitted to the hospital for further evaluation and treatment. The patient was initially admitted to ICU. Dr. Montoya saw the patient for ICU management and she also has a history of paroxysmal atrial fibrillation. She has been on Eliquis and Plavix and also aspirin. The patient has had multiple strokes in the past and recently she was treated in [facility] rehab unit following a stroke and she recovered well and she was discharged home. She was also found to have anemia at that time but as her hemoglobin was starting to improve, endoscopy examination was not done and this time the patient, because of the severe anemia, she got multiple transfusions and Dr. Pritchard did upper endoscopy and there was no bleeding source found in the stomach or in the esophagus. The patient with the Plavix, aspirin and Eliquis was discontinued and the patient's condition improved. Patient was transferred out of ICU. The patient was also seen by [facility] in consultation. The patient's CBC has improved and her hemoglobin today is 9.2. However, the patient developed atrial fibrillation with rapid ventricular response and she was started on IV Cardizem and she is currently receiving IV Cardizem. Otherwise neurologically, she is extremely weak, but still no new findings. She is getting physical therapy and Dr. Hays saw the patient and he has recommended transferring the patient to [facility] rehab unit under Dr. Hays's care when the patient's condition remains stable. However, the patient is currently receiving Cardizem IV drip. We will hold the transfer today and we will continue the IV Cardizem drip as recommended by the credit administration manager and credit administration manager also started her on a lower dose of Eliquis 2.5 mg p.o. b.i.d. and we will continue to watch the patient and when her condition becomes stable, she will be transferred to [facility] rehab unit. In the meantime, we will continue the physical therapy and probably she may be able to be discharged in 3-4 days. MMODL / IJN: [id number] /
[2017-12-23] MEDS: ATORVASTATIN 20 MG TAB PO SCH (19:34)
--- NOTE | 2017-12-23 21:06 | PN ---
PROGRESS NOTE This patient was admitted with significant GI bleeding, paroxysmal atrial fibrillation and stroke. The patient is doing better. Patient is being evaluated by physical therapy. She is lying in the bed. At present, the blood pressure is 110/64 mmHg. The heart rate is 80 per minute. The patient went back into the atrial fibrillation last night, and Cardizem drip was started. The patient is getting currently Lopressor 50 mg t.i.d., we will wean her off the Cardizem and continue Lopressor 50 mg t.i.d. MMODL / IJN: [id number] /
[2017-12-24] MEDS: SODIUM CHLORIDE 0.45% 1,000 ML IV SCH (00:33)
[2017-12-24] MEDS: LEVOTHYROXINE 125 MCG TAB PO SCH (06:07)
[2017-12-24] MEDS: APIXABAN 2.5 MG TABLET PO SCH ×2 (08:38→22:45)
[2017-12-24] MEDS: METOPROLOL TARTRATE 50 MG TAB PO SCH ×3 (08:38→22:45)
[2017-12-24] MEDS: PANTOPRAZOLE 40 MG TABLET PO SCH (08:38)
--- NOTE | 2017-12-24 08:55 | P.PN ---
Subjective Progress Note Date: 12/23/17 Patient is being evaluated for recent GI bleed and history of left SELENE stroke and is examined in the ICU. 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 She was transferred to [facility] neurology ICU where she was evaluated by the neuro cardiology specialist. There was concern the patient may have had bilateral carotid artery dissection. She was placed initially on Plavix and aspirin at [facility] and then just prior to being discharged she developed an episode of acute onset of paroxysmal atrial fibrillation. She was recommended to go to inpatient rehab and later on [facility] on Plavix and aspirin therapy. Apparently her workup at [facility] did not show evidence for bilateral carotid artery dissection. She was recommended after 3 weeks to start on anticoagulation due to her paroxysmal atrial fibrillation. Patient apparently was started on Eloquis while she was in the inpatient rehab at later on [facility]. She was discharged home and was to continue with outpatient PT/OT evaluation. Patient noted some improvement with her right-sided weakness during this home PT evaluation and treatment. Unfortunately prior to her admission to hospital on 12/17/2017 she developed severe weakness and inability to stand. She was brought into the emergency room and was admitted to hospital on 12/17/2017. Her hemoglobin in the ER was 3.7. She was given 4 units of packed red blood cells as blood transfusion and her hemoglobin today is 8.0. She was seen by gastroenterology and Dr. Laws and is being considered for possible endoscopy procedure tomorrow. The patient was sent for an emergent MRI of the brain yesterday which was reviewed. MRI reveals evidence of acute ischemia involving the left anterior cerebral artery and slightly more pronounced as compared to previous MRI of the brain performed on 11/13/2017. Also there is a new area seen high in the left frontoparietal region which suggest a new area of infarction. Patient clearly had some deterioration with increase in right-sided weakness on admission to hospital. At this time she has been taken off of all anticoagulation medications including Plavix, aspirin , and Eliquis. She is to remain off of these anticoagulants until she is reevaluated by Dr. Laws. Her MRI of the brain failed to reveal any evidence of hemorrhage. She was able to complete a routine EEG today which was reviewed and is moderately slow with no evidence of any epileptiform discharges. We reviewed the results of the MRI and EEG today with the patient. Neurologically she is showing improvement in her mental status today. She will need PT OT reevaluation tomorrow for further ongoing treatment. We will await further recommendations for multiple specialists that are seeing this patient. Case was discussed today with the stroke specialists at [facility] over the phone Dr. Mcpherson, who will convey this information to her neurologist that had seen her during her admission in November. At this point she is to remain off of all anticoagulant treatments. She is showing signs of paroxysmal atrial fibrillation today and cardiology has been consulted. We are waiting further recommendations from cardiology in regards to management of her paroxysmal atrial fibrillation and risk of recurrent stroke. This patient's overall prognosis at this time remains very guarded given her multiple complex medical issues. We will continue close neurological follow-up with this patient in the intensive care unit. The patient was sent for EGD procedure today which apparently came back within normal limits with no acute findings for cause of GI bleeding. Case was discussed today with cardiology and they are recommending that she not be started on anticoagulant for at least a few days. They are recommending Eloquis at a dose of 2.5 mg twice a day. We have also discuss with cardiology the need for possible watchman device. Dr. Montemayor will discuss this with the cardiology specialists at [place] and [facility] in the next few days. The patient continues to demonstrate right- sided weakness. As noted MRI does reveal a new area of possible infarction in the left frontoparietal region. This finding on the MRI would explain new symptoms of weakness for this patient. Patient was transferred out of the intensive care unit today. Her hemoglobin today is 9.1. She continues have right-sided hemiparesis and mild dysarthric speech. As per cardiology she will be started on anticoagulation today. She is to start on Eloquis 2.5 mg twice a day as her only treatment without use of Plavix or aspirin. Overall prognosis at this time remains guarded. Objective - Vital Signs Vital signs: Vital Signs Temp 98.9 F 12/23/17 08:00 Pulse 79 12/23/17 11:47 Resp 16 12/23/17 11:47 BP 110/64 12/23/17 11:47 Pulse Ox 99 12/23/17 11:47 Intake & Output 12/22/17 12/23/17 12/23/17 18:59 06:59 18:59 Intake Total 780 600 180 Balance 780 600 180 Weight 66.5 kg Intake: IV 600 Sodium Chloride 0.45% 1, 600 000 ml @ 75 mls/hr IV . [id number] [facility] Rx#:[id number] Oral 780 180 Other: Voiding Method Bedpan Diaper Diaper Diaper Incontinent Incontinent Incontinent # Voids 3 1 3 ABP, PAP, CO, CI - Last Documented Arterial Blood Pressure 127/47 - Exam Physical Examination: PHYSICAL EXAMINATION: Patient is resting comfortably in bed. VITAL SIGNS: Blood pressure is [150/71]. Heart rate is [76]. Respiration is [18] . Temperature is [98.5]. HEENT: Head is atraumatic, neck is supple, there were no carotid bruits. CHEST: Lungs are clear to auscultation and percussion. CARDIAC: S1, S2 normal rate and rhythm. There is no murmur. ABDOMEN: Soft and nontender. Bowel sounds are present. EXTREMITIES: There is no pedal edema. Peripheral pulses are present. Neurological examination: Patient is awake alert and oriented 3. Her speech is slow and at times she does have some dysarthric speech. She is much more awake and alert today and is following all commands. Her memory and intellectual functions only slightly impaired. Cranial nerve examination: Cranial nerves II through XII are grossly intact. Motor examination: Patient has right pronator drift. Muscle tone is normal. Muscle strength testing reveals right-sided hemiparesis 3+/5 throughout. She continues to demonstrate right-sided hemiparesis on exam. Sensory exam was intact. Deep tendon reflexes: The DTRs are 1+ and symmetric. Plantar responses flexor bilaterally. Pronation gait cannot be assessed in this patient at this time. - Labs CBC & Chem 7: 12/23/17 05:56 12/21/17 04:03 Labs: Abnormal Lab Results - Last 24 Hours (Table) 12/23/17 Range/Units 05:56 RBC 3.34 L (3.80-5.40) m/uL Hgb 9.2 L (11.4-16.0) gm/dL Hct 29.0 L (34.0-46.0) % RDW 16.3 H (11.5-15.5) % Assessment and Plan (1) Gastrointestinal hemorrhage Current Visit: Yes Status: Acute Code(s): K92.2 - GASTROINTESTINAL HEMORRHAGE, UNSPECIFIED SNOMED Code(s): 54164490 (2) Acute encephalopathy Current Visit: No Status: Acute Code(s): G93.40 - ENCEPHALOPATHY, UNSPECIFIED SNOMED Code(s): 84856685 (3) Anemia Current Visit: Yes Status: Chronic Code(s): D64.9 - ANEMIA, UNSPECIFIED SNOMED Code(s): 678715134 (4) Carotid dissection, bilateral Current Visit: No Status: Acute Code(s): I77.71 - DISSECTION OF CAROTID ARTERY SNOMED Code(s): 616014314 (5) History of stroke Current Visit: No Status: Chronic Code(s): Z86.73 - PRSNL HX OF TIA (TIA), AND CEREB INFRC W/O RESID DEFICITS SNOMED Code(s): 107170050 Plan: This patient is a 82-year-old right-handed white female who was seen in neurology consultation for evaluation of acute right-sided weakness and possible extension of recent stroke. Patient was admitted to hospital with massive GI bleeding and an initial hemoglobin of 3.7. She was seen by gastroenterology and underwent an upper GI endoscopy procedure which revealed no acute source for bleeding. It is felt that her bleeding was due to excessive anticoagulation. She has been taken off of all anticoagulants due to her history of atrial fibrillation. She has history of paroxysmal atrial fibrillation and recent left hemispheric stroke. She is now going to be restarted only on Eloquis at a dose of 2.5 mg twice a day in 2-3 days. Cardiology is following the patient closely. She has had no further signs of GI bleeding. Her hemoglobin today is 9.1. She was transferred out of the intensive care unit to the selective care floor and is doing well. We will continue close neurological follow-up for the patient during this admission. Patient should continue with physical therapy evaluations. She may benefit from placement in subacute rehab at the time of discharge. Her overall prognosis at this time remains very guarded. She was seen by cardiology today and has been restarted on Eloquis 2.5 mg twice a day. The patient continues to do quite well overall and is shown improvement in her right-sided hemiparesis. She is being considered for possible subacute rehab placement once again. We will continue close neurological follow-up for the patient during this admission. Her overall prognosis at this time remains guarded.
--- NOTE | 2017-12-24 10:22 | CDI ---
Last Revision, April 2017 Documentation Clarification Form Date: 12/24/2017 10:05:31 AM From: Crystal Martinez RN, CCDS Admit Date: 12/17/2017 3:31:00 PM Patient Name: Radha Del Angel Visit Number: [id number] ATTENTION: The Clinical Documentation Specialists (CDI) and [facility] Coding Staff appreciate your assistance in clarifying documentation. Please respond to the clarification below the line at the bottom and electronically sign. The CDI & [facility] Coding staff will review the response and follow-up if needed. Please note: Queries are made part of the Legal Health Record. If you have any questions, please contact the author of this message via ITS. Britt Mancilla MD Encephalopathy is documented in the Neurology Progress Notes. History/Risk factors: GIB, A/C RF, met acidosis, Hypovolemic shock Clinical Indicators: Labs: HGB: 8.4/8.2/8/9.2/9.1/9.2, WBC 18.6/15.6/9.8/7.3, Neutrophils 15.9/12.8, BUN 97/71/38/19/14, Creatinine 2.2/1.79/1.25/.9, t protein 5.4/2.9 12/19 EEG:"This EEG is moderately abnormal in a diffuse fashion due to slowing of the EEG background. The EEG failed to reveal any focal, lateralized or epileptiform abnormalities." 12/18 MRI Brain:"Acute ischemic change in the left pericallosal distribution." Treatment: Consults: 4 Units PRBC's Transfused 2L IVF Bolus In your professional opinion, can you please clarify the specific type of encephalopathy, if known? Metabolic Encephalopathy Toxic Encephalopathy Other, please specify Unable to determine Causal Condition: Alcoholism, Hepatitis, other disease process? Please continue to document in your progress notes and discharge summary in order to capture severity of illness and risk of mortality. Include clinical findings that support your diagnosis. MTDD
--- NOTE | 2017-12-24 14:11 | P.PN ---
Subjective Progress Note Date: 12/24/17 This is a pleasant 82-year-old female patient with history of CVA in November at which time CT angiogram was suggestive of possible internal carotid artery dissection and patient was transferred [facility]. There was no definitive evidence of dissection. She has a history of paroxysmal atrial fibrillation. She was admitted with complaint of extreme weakness and hemoglobin of 3.7. Prior to admission she was on Eliquis 5 mg by mouth twice a day. She was having black stools. Patient's Plavix was discontinued and eliquis is now 2.5 mg by mouth twice a day. She's had no further bleeding and her hemoglobin is stable at 9.2. She is currently on metoprolol tart 50 mg by mouth 3 times a day and is maintaining sinus rhythm. Objective - Vital Signs Vital signs: Vital Signs Temp 96.8 F L 12/24/17 08:00 Pulse 62 12/24/17 12:00 Resp 16 12/24/17 12:00 BP 140/62 12/24/17 12:00 Pulse Ox 98 12/24/17 12:00 Intake & Output 12/23/17 12/24/17 12/24/17 18:59 06:59 18:59 Intake Total 900 0 298 Balance 900 0 298 Weight 67.2 kg Intake: Oral 900 0 298 Other: Voiding Method Diaper Diaper Diaper Incontinent Incontinent Incontinent # Voids 3 1 2 ABP, PAP, CO, CI - Last Documented Arterial Blood Pressure 127/47 - Exam PHYSICAL EXAMINATION: HEENT: [Head is atraumatic, normocephalic. Pupils equal, round. Neck is supple. There is no elevated jugular venous pressure.] HEART EXAMINATION: [Heart sounds regular, S1 and S2 normal. No murmur or gallop heard.] CHEST EXAMINATION:[ Lungs are clear to auscultation and precussion. No chest wall tenderness is noted on palpation or with deep breathing.] ABDOMEN: [ Soft, nontender. Bowel sounds are heard. No organomegaly noted]. EXTREMITIES:[ 2+ peripheral pulses with no evidence of peripheral edema and no calf tenderness noted]. NEUROLOGIC [patient is awake, alert and oriented x3.] . - Labs CBC & Chem 7: 12/23/17 05:56 12/21/17 04:03 Assessment and Plan Assessment: #1 GI bleed #2 acute blood loss anemia secondary to above #3 paroxysmal atrial fibrillation #4 history of CVA Plan: From cardiology perspective, we will continue Eliquis 2.5 mg by mouth twice a day and metoprolol titrate 50 mg by mouth 3 times a day. Monitor closely for signs of bleeding. Follow the hemoglobin. We will continue to follow the patient and provide further recommendations accordingly. MERCHANDISING ASSISTANT note has been reviewed, I agree with a documented findings and plan of care. Patient was seen and examined.
--- NOTE | 2017-12-24 15:43 | PN ---
PROGRESS NOTE DATE OF SERVICE: 12/24/2017 This is an 82-year-old white female who has multiple medical problems. She was admitted this time with acute GI bleeding and her hemoglobin was found to be extremely low in the ER and it was below 4 and she was admitted to ICU and she received multiple transfusions. Dr. Montoya saw her in the ICU and followed her for ICU management. She had an upper endoscopy by Dr. Pritchard and apparently there was no bleeding source identified and she has been on Eliquis and Plavix and also aspirin because she has had a stroke in the past and also has paroxysmal atrial fibrillation. This time in the ER, she had a seizure-like episode and the patient was seen by Dr. Galvan in consultation and she apparently has right hemiparesis and when her condition stabilized in the ICU, she was transferred out of ICU and currently her hemoglobin stays around 9.2. She has been receiving physical therapy. Yesterday she developed atrial fibrillation with rapid ventricular response and she was given a Cardizem IV drip by qa internship and apparently she converted back to sinus rhythm now and she is still extremely weak. Still she has weakness of the right extremities. We will continue current medications and also physical therapy. The patient was also seen with Dr. Hays in consultation for inpatient rehab evaluation and when her condition stabilized, she could be transferred to the [facility] rehab unit under Dr. Hays. The patient is still extremely unstable with regards to her cardiac problem and possibly she could be discharged and transferred to the rehab unit in 3 to 4 days. MMODL / RADHAN: [id number] /
[2017-12-24] MEDS: ATORVASTATIN 20 MG TAB PO SCH (22:45)
[2017-12-25] MEDS: SODIUM CHLORIDE 0.45% 1,000 ML IV SCH ×2 (06:55→11:41)
[2017-12-25] MEDS: LEVOTHYROXINE 125 MCG TAB PO SCH (06:55)
--- NOTE | 2017-12-25 07:35 | P.PN ---
Subjective Progress Note Date: 12/24/17 Patient is being evaluated for recent GI bleed and history of left SELENE stroke and is examined in the ICU. 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 She was transferred to [facility] neurology ICU where she was evaluated by the neuro cota. There was concern the patient may have had bilateral carotid artery dissection. She was placed initially on Plavix and aspirin at [facility] and then just prior to being discharged she developed an episode of acute onset of paroxysmal atrial fibrillation. She was recommended to go to inpatient rehab and later on [facility] on Plavix and aspirin therapy. Apparently her workup at [facility] did not show evidence for bilateral carotid artery dissection. She was recommended after 3 weeks to start on anticoagulation due to her paroxysmal atrial fibrillation. Patient apparently was started on Eloquis while she was in the [facility] She was discharged home and was to continue with outpatient PT/OT evaluation. Patient noted some improvement with her right-sided weakness during this home PT evaluation and treatment. Unfortunately prior to her admission to hospital on 12/17/2017 she developed severe weakness and inability to stand. She was brought into the emergency room and was admitted to hospital on 12/17/2017. Her hemoglobin in the ER was 3.7. She was given 4 units of packed red blood cells as blood transfusion and her hemoglobin today is 8.0. She was seen by gastroenterology and Dr. Laws and is being considered for possible endoscopy procedure tomorrow. The patient was sent for an emergent MRI of the brain yesterday which was reviewed. MRI reveals evidence of acute ischemia involving the left anterior cerebral artery and slightly more pronounced as compared to previous MRI of the brain performed on 11/13/2017. Also there is a new area seen high in the left frontoparietal region which suggest a new area of infarction. Patient clearly had some deterioration with increase in right-sided weakness on admission to hospital. At this time she has been taken off of all anticoagulation medications including Plavix, aspirin , and Eliquis. She is to remain off of these anticoagulants until she is reevaluated by Dr. Laws. Her MRI of the brain failed to reveal any evidence of hemorrhage. She was able to complete a routine EEG today which was reviewed and is moderately slow with no evidence of any epileptiform discharges. We reviewed the results of the MRI and EEG today with the patient. Neurologically she is showing improvement in her mental status today. She will need PT OT reevaluation tomorrow for further ongoing treatment. We will await further recommendations for multiple specialists that are seeing this patient. Case was discussed today with the stroke specialists at [facility] over the phone Dr. Mcpherson, who will convey this information to her neurologist that had seen her during her admission in November. At this point she is to remain off of all anticoagulant treatments. She is showing signs of paroxysmal atrial fibrillation today and cardiology has been consulted. We are waiting further recommendations from cardiology in regards to management of her paroxysmal atrial fibrillation and risk of recurrent stroke. This patient's overall prognosis at this time remains very guarded given her multiple complex medical issues. We will continue close neurological follow-up with this patient in the intensive care unit. The patient was sent for EGD procedure today which apparently came back within normal limits with no acute findings for cause of GI bleeding. Case was discussed today with cardiology and they are recommending that she not be started on anticoagulant for at least a few days. They are recommending Eloquis at a dose of 2.5 mg twice a day. We have also discuss with cardiology the need for possible watchman device. Dr. Montemayor will discuss this with the cardiology specialists at [place] and [facility] in the next few days. The patient continues to demonstrate right- sided weakness. As noted MRI does reveal a new area of possible infarction in the left frontoparietal region. This finding on the MRI would explain new symptoms of weakness for this patient. Patient was transferred out of the intensive care unit today. Her hemoglobin today is 9.1. She continues have right-sided hemiparesis and mild dysarthric speech. As per cardiology she will be started on anticoagulation today. She is to start on Eloquis 2.5 mg twice a day as her only treatment without use of Plavix or aspirin. Overall prognosis at this time remains guarded. Objective - Vital Signs Vital signs: Vital Signs Temp 96.8 F L 12/24/17 08:00 Pulse 75 12/24/17 08:00 Resp 16 12/24/17 08:00 BP 129/59 12/24/17 08:00 Pulse Ox 96 12/24/17 08:00 Intake & Output 12/23/17 12/24/17 12/24/17 18:59 06:59 18:59 Intake Total 900 0 Balance 900 0 Weight 67.2 kg Intake: Oral 900 0 Other: Voiding Method Diaper Diaper Incontinent Incontinent # Voids 3 1 1 ABP, PAP, CO, CI - Last Documented Arterial Blood Pressure 127/47 - Exam Physical Examination: PHYSICAL EXAMINATION: Patient is resting comfortably in bed. VITAL SIGNS: Blood pressure is [140/62]. Heart rate is [62]. Respiration is [16] . Temperature is [97.5]. HEENT: Head is atraumatic, neck is supple, there were no carotid bruits. CHEST: Lungs are clear to auscultation and percussion. CARDIAC: S1, S2 normal rate and rhythm. There is no murmur. ABDOMEN: Soft and nontender. Bowel sounds are present. EXTREMITIES: There is no pedal edema. Peripheral pulses are present. Neurological examination: Patient is awake alert and oriented 3. Her speech is slow and at times she does have mild dysarthric speech. She is much more awake and alert today and is following all commands. Her memory and intellectual functions only slightly impaired. Cranial nerve examination: Cranial nerves II through XII are grossly intact. Motor examination: Patient has right pronator drift. Muscle tone is normal. Muscle strength testing reveals right-sided hemiparesis 4/5 throughout. She continues to demonstrate right-sided hemiparesis on exam. Sensory exam was intact. Deep tendon reflexes: The DTRs are 1+ and symmetric. Plantar responses flexor bilaterally. Pronation gait cannot be assessed in this patient at this time. - Labs CBC & Chem 7: 12/23/17 05:56 12/21/17 04:03 Assessment and Plan (1) Gastrointestinal hemorrhage Current Visit: Yes Status: Acute Code(s): K92.2 - GASTROINTESTINAL HEMORRHAGE, UNSPECIFIED SNOMED Code(s): 99500282 (2) Acute encephalopathy Current Visit: No Status: Acute Code(s): G93.40 - ENCEPHALOPATHY, UNSPECIFIED SNOMED Code(s): 89010754 (3) Anemia Current Visit: Yes Status: Chronic Code(s): D64.9 - ANEMIA, UNSPECIFIED SNOMED Code(s): 901735647 (4) Carotid dissection, bilateral Current Visit: No Status: Acute Code(s): I77.71 - DISSECTION OF CAROTID ARTERY SNOMED Code(s): 721991280 (5) History of stroke Current Visit: No Status: Chronic Code(s): Z86.73 - PRSNL HX OF TIA (TIA), AND CEREB INFRC W/O RESID DEFICITS SNOMED Code(s): 689487053 Plan: This patient is a 82-year-old right-handed white female who was seen in neurology consultation for evaluation of acute right-sided weakness and possible extension of recent stroke. Patient was admitted to hospital with massive GI bleeding and an initial hemoglobin of 3.7. She was seen by gastroenterology and underwent an upper GI endoscopy procedure which revealed no acute source for bleeding. It is felt that her bleeding was due to excessive anticoagulation. She has been taken off of all anticoagulants due to her history of atrial fibrillation. She has history of paroxysmal atrial fibrillation and recent left hemispheric stroke. She is now going to be restarted only on Eloquis at a dose of 2.5 mg twice a day in 2-3 days. Cardiology is following the patient closely. She has had no further signs of GI bleeding. Her hemoglobin today is 9.1. She was transferred out of the intensive care unit to the selective care floor and is doing well. We will continue close neurological follow-up for the patient during this admission. Patient should continue with physical therapy evaluations. She may benefit from placement in subacute rehab at the time of discharge. Her overall prognosis at this time remains very guarded. She was seen by cardiology today and has been restarted on Eloquis 2.5 mg twice a day. The patient continues to do quite well overall and is shown improvement in her right-sided hemiparesis. Today on examination she is showing improvement with the use of her right side in terms of right arm strength. Her speech also is showing improvement. We will await to see if the patient would benefit from inpatient rehabilitation for subacute rehab. Overall she is making good progress. She is to continue with anticoagulation as prescribed by cardiology. She is being considered for possible subacute rehab placement once again. We will continue close neurological follow-up for the patient during this admission. Her overall prognosis at this time remains guarded.
[2017-12-25] MEDS: METOPROLOL TARTRATE 50 MG TAB PO SCH ×3 (09:00→22:57)
[2017-12-25] MEDS: PANTOPRAZOLE 40 MG TABLET PO SCH (11:39)
[2017-12-25] MEDS: APIXABAN 2.5 MG TABLET PO SCH ×2 (11:40→22:57)
--- NOTE | 2017-12-25 12:44 | P.PN ---
Subjective Progress Note Date: 12/25/17 This is a pleasant 82-year-old female patient with history of CVA in November at which time CT angiogram was suggestive of possible internal carotid artery dissection and patient was transferred [facility]. There was no definitive evidence of dissection. She has a history of paroxysmal atrial fibrillation. She was admitted with complaint of extreme weakness and hemoglobin of 3.7. Prior to admission she was on Eliquis 5 mg by mouth twice a day. She was having black stools. Patient's Plavix was discontinued and eliquis is now 2.5 mg by mouth twice a day. She's had no further bleeding and her hemoglobin is stable at 9.2. She is currently on metoprolol tart 50 mg by mouth 3 times a day and is maintaining sinus rhythm. Objective - Vital Signs Vital signs: Vital Signs Temp 98 F 12/25/17 11:41 Pulse 75 12/25/17 11:47 Resp 18 12/25/17 11:41 BP 146/63 12/25/17 11:41 Pulse Ox 98 12/25/17 11:41 Intake & Output 12/24/17 12/25/17 12/25/17 18:59 06:59 18:59 Intake Total 538 240 Output Total 0 Balance 538 0 240 Weight 70 kg Intake: Oral 538 240 Output: Urine 0 Other: Voiding Method Diaper Diaper Diaper Incontinent Incontinent Incontinent # Voids 2 1 ABP, PAP, CO, CI - Last Documented Arterial Blood Pressure 127/47 - Exam PHYSICAL EXAMINATION: HEENT: [Head is atraumatic, normocephalic. Pupils equal, round. Neck is supple. There is no elevated jugular venous pressure.] HEART EXAMINATION: [Heart sounds regular, S1 and S2 normal. No murmur or gallop heard.] CHEST EXAMINATION:[ Lungs are clear to auscultation and precussion. No chest wall tenderness is noted on palpation or with deep breathing.] ABDOMEN: [ Soft, nontender. Bowel sounds are heard. No organomegaly noted]. EXTREMITIES:[ 2+ peripheral pulses with no evidence of peripheral edema and no calf tenderness noted]. NEUROLOGIC [patient is awake, alert and oriented x3.] . - Labs CBC & Chem 7: 12/23/17 05:56 12/21/17 04:03 Assessment and Plan Plan: Assessment: #1 GI bleed #2 acute blood loss anemia secondary to above #3 paroxysmal atrial fibrillation #4 history of CVA Plan: From cardiology perspective, we will continue Eliquis 2.5 mg by mouth twice a day and metoprolol titrate 50 mg by mouth 3 times a day. Monitor closely for signs of bleeding. Follow the hemoglobin. We will continue to follow the patient and provide further recommendations accordingly. CENTRAL SERVICE TECHNICIAN note has been reviewed, I agree with a documented findings and plan of care. Patient was seen and examined.
--- NOTE | 2017-12-25 14:53 | PN ---
PROGRESS NOTE DATE OF SERVICE: 12/25/2017 This is an 82-year-old white female who was admitted with acute GI bleeding and she was found to have hemoglobin 3.7, and the patient was admitted to ICU and the patient is known to have paroxysmally atrial fibrillation. She has been on Eliquis and Plavix and aspirin and this was discontinued and she received multiple transfusions in the ICU and her hemoglobin came up to 9.2, and it is remaining stable now. When her condition was stable, she was transferred out of ICU. In the ICU, she was seen by Dr. Montoya for ICU management. The patient also known to have had multiple strokes in the past and at this time also she had a stroke and she has a right hemiparesis and she was seen by Dr. Galvan in consultation. She is also being followed by Cardiology, and 2 days ago the patient developed atrial fibrillation with rapid ventricular response and she received Cardizem IV drip. Currently, patient has converted back to sinus rhythm. The patient is currently receiving physical therapy and the patient was seen by Dr. Hays in consultation and he recommended inpatient rehabilitation when her condition stabilizes and when she is ready to be discharged. Currently, she is in sinus rhythm and the Cardizem drip has been discontinued and she will continue current medications and she will be discharged and transferred to [facility] rehab unit under Dr. Hays's care when her condition is stable. MMODL / IJN: [id number] /
--- NOTE | 2017-12-25 21:53 | P.PN ---
Subjective Progress Note Date: 12/25/17 Patient is being evaluated for recent GI bleed and history of left SELENE stroke and is examined in the ICU. 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 She was transferred to [facility] neurology ICU where she was evaluated by the neuro seconds inspector. There was concern the patient may have had bilateral carotid artery dissection. She was placed initially on Plavix and aspirin at [facility] and then just prior to being discharged she developed an episode of acute onset of paroxysmal atrial fibrillation. She was recommended to go to inpatient rehab and later on [facility] on Plavix and aspirin therapy. Apparently her workup at [facility] did not show evidence for bilateral carotid artery dissection. She was recommended after 3 weeks to start on anticoagulation due to her paroxysmal atrial fibrillation. Patient apparently was started on Eloquis while she was in the inpatient rehab at later on [facility]. She was discharged home and was to continue with outpatient PT/OT evaluation. Patient noted some improvement with her right-sided weakness during this home PT evaluation and treatment. Unfortunately prior to her admission to hospital on 12/17/2017 she developed severe weakness and inability to stand. She was brought into the emergency room and was admitted to hospital on 12/17/2017. Her hemoglobin in the ER was 3.7. She was given 4 units of packed red blood cells as blood transfusion and her hemoglobin today is 8.0. She was seen by gastroenterology and Dr. Laws and is being considered for possible endoscopy procedure tomorrow. The patient was sent for an emergent MRI of the brain yesterday which was reviewed. MRI reveals evidence of acute ischemia involving the left anterior cerebral artery and slightly more pronounced as compared to previous MRI of the brain performed on 11/13/2017. Also there is a new area seen high in the left frontoparietal region which suggest a new area of infarction. Patient clearly had some deterioration with increase in right-sided weakness on admission to hospital. At this time she has been taken off of all anticoagulation medications including Plavix, aspirin , and Eliquis. She is to remain off of these anticoagulants until she is reevaluated by Dr. Laws. Her MRI of the brain failed to reveal any evidence of hemorrhage. She was able to complete a routine EEG today which was reviewed and is moderately slow with no evidence of any epileptiform discharges. We reviewed the results of the MRI and EEG today with the patient. Neurologically she is showing improvement in her mental status today. She will need PT OT reevaluation tomorrow for further ongoing treatment. We will await further recommendations for multiple specialists that are seeing this patient. Case was discussed today with the stroke specialists at [facility] over the phone Dr. Mcpherson, who will convey this information to her neurologist that had seen her during her admission in November. At this point she is to remain off of all anticoagulant treatments. She is showing signs of paroxysmal atrial fibrillation today and cardiology has been consulted. We are waiting further recommendations from cardiology in regards to management of her paroxysmal atrial fibrillation and risk of recurrent stroke. This patient's overall prognosis at this time remains very guarded given her multiple complex medical issues. We will continue close neurological follow-up with this patient in the intensive care unit. The patient was sent for EGD procedure today which apparently came back within normal limits with no acute findings for cause of GI bleeding. Case was discussed today with cardiology and they are recommending that she not be started on anticoagulant for at least a few days. They are recommending Eloquis at a dose of 2.5 mg twice a day. We have also discuss with cardiology the need for possible watchman device. Dr. Montemayor will discuss this with the cardiology specialists at [facility] and [facility] in the next few days. The patient continues to demonstrate right- sided weakness. As noted MRI does reveal a new area of possible infarction in the left frontoparietal region. This finding on the MRI would explain new symptoms of weakness for this patient. Patient was transferred out of the intensive care unit today. Her hemoglobin today is 9.1. She continues have right-sided hemiparesis and mild dysarthric speech. As per cardiology she will be started on anticoagulation today. She is to start on Eloquis 2.5 mg twice a day as her only treatment without use of Plavix or aspirin. Patient's hemoglobin today is very stable at 9.2. She has had no other evidence of active bleeding. She does have a history of paroxysmal atrial fibrillation and cardiology continues to follow her closely. Overall prognosis at this time remains guarded. Objective - Vital Signs Vital signs: Vital Signs Temp 98.5 F 12/25/17 16:00 Pulse 71 12/25/17 16:00 Resp 18 12/25/17 16:00 BP 168/73 12/25/17 16:00 Pulse Ox 96 12/25/17 16:00 Intake & Output 12/25/17 12/25/17 12/26/17 06:59 18:59 06:59 Intake Total 480 Output Total 0 Balance 0 480 Weight 70 kg Intake: Oral 480 Output: Urine 0 Other: Voiding Method Diaper Diaper Incontinent Incontinent # Voids 1 1 ABP, PAP, CO, CI - Last Documented Arterial Blood Pressure 127/47 - Exam Physical Examination: PHYSICAL EXAMINATION: Patient is resting comfortably in bed. VITAL SIGNS: Blood pressure is [168/73]. Heart rate is [71]. Respiration is [18] . Temperature is [98.5]. HEENT: Head is atraumatic, neck is supple, there were no carotid bruits. CHEST: Lungs are clear to auscultation and percussion. CARDIAC: S1, S2 normal rate and rhythm. There is no murmur. ABDOMEN: Soft and nontender. Bowel sounds are present. EXTREMITIES: There is no pedal edema. Peripheral pulses are present. Neurological examination: Patient is awake alert and oriented 3. Her speech is slow and at times she does have mild dysarthric speech. She is much more awake and alert today and is following all commands. Her memory and intellectual functions only slightly impaired. Cranial nerve examination: Cranial nerves II through XII are grossly intact. Motor examination: Patient has right pronator drift. Muscle tone is normal. Muscle strength testing reveals right-sided hemiparesis 4/5 throughout. She continues to demonstrate right-sided hemiparesis on exam. Sensory exam was intact. Deep tendon reflexes: The DTRs are 1+ and symmetric. Plantar responses flexor bilaterally. Pronation gait cannot be assessed in this patient at this time. - Labs CBC & Chem 7: 12/23/17 05:56 12/21/17 04:03 Assessment and Plan (1) Gastrointestinal hemorrhage Current Visit: Yes Status: Acute Code(s): K92.2 - GASTROINTESTINAL HEMORRHAGE, UNSPECIFIED SNOMED Code(s): 92401591 (2) Acute encephalopathy Current Visit: No Status: Acute Code(s): G93.40 - ENCEPHALOPATHY, UNSPECIFIED SNOMED Code(s): 98751968 (3) Anemia Current Visit: Yes Status: Chronic Code(s): D64.9 - ANEMIA, UNSPECIFIED SNOMED Code(s): 230415431 (4) Carotid dissection, bilateral Current Visit: No Status: Acute Code(s): I77.71 - DISSECTION OF CAROTID ARTERY SNOMED Code(s): 615164082 (5) History of stroke Current Visit: No Status: Chronic Code(s): Z86.73 - PRSNL HX OF TIA (TIA), AND CEREB INFRC W/O RESID DEFICITS SNOMED Code(s): 824206432 Plan: This patient is a 82-year-old right-handed white female who was seen in neurology consultation for evaluation of acute right-sided weakness and possible extension of recent stroke. Patient was admitted to hospital with massive GI bleeding and an initial hemoglobin of 3.7. She was seen by gastroenterology and underwent an upper GI endoscopy procedure which revealed no acute source for bleeding. It is felt that her bleeding was due to excessive anticoagulation. She has been taken off of all anticoagulants due to her history of atrial fibrillation. She has history of paroxysmal atrial fibrillation and recent left hemispheric stroke. She is now going to be restarted only on Eloquis at a dose of 2.5 mg twice a day in 2-3 days. Cardiology is following the patient closely. She has had no further signs of GI bleeding. Her hemoglobin today is 9.1. She was transferred out of the intensive care unit to the selective care floor and is doing well. We will continue close neurological follow-up for the patient during this admission. Patient should continue with physical therapy evaluations. She may benefit from placement in subacute rehab at the time of discharge. Her overall prognosis at this time remains very guarded. She was seen by cardiology today and has been restarted on Eloquis 2.5 mg twice a day. The patient continues to do quite well overall and is shown improvement in her right-sided hemiparesis. Today on examination she is showing improvement with the use of her right side in terms of right arm strength. Her speech also is showing improvement. We will await to see if the patient would benefit from inpatient rehabilitation for subacute rehab. Overall she is making good progress. She is to continue with anticoagulation as prescribed by cardiology. She is being considered for possible subacute rehab placement once again. The patient continues to make slow progress in recovery from her recent stroke. Her hemoglobin today is stable at 9.2. Would continue close monitoring for any recurrent signs of bleeding. She is to continue on her current dose of Eloquis. We will continue close neurological follow-up for the patient during this admission. Her overall prognosis at this time remains guarded.
[2017-12-25] MEDS: ATORVASTATIN 20 MG TAB PO SCH (22:58)
[2017-12-26] MEDS: SODIUM CHLORIDE 0.45% 1,000 ML IV SCH ×2 (06:32→11:34)
[2017-12-26] MEDS: LEVOTHYROXINE 125 MCG TAB PO SCH (06:33)
[2017-12-26] MEDS: METOPROLOL TARTRATE 50 MG TAB PO SCH ×3 (09:07→20:20)
[2017-12-26] MEDS: APIXABAN 2.5 MG TABLET PO SCH ×2 (09:07→20:20)
[2017-12-26] MEDS: PANTOPRAZOLE 40 MG TABLET PO SCH (09:07)
--- NOTE | 2017-12-26 11:58 | P.PN ---
Subjective This is a pleasant 82-year-old female seen and examined resting comfortably in bed. Past medical history significant for paroxysmal atrial fibrillation on long-term anticoagulation. On admission she was found to be significantly anemic with hemoglobin of 3.7. She has received 4 blood transfusions. Hemoglobin today 9.2. Eliquis has been resumed at 2.5 mg twice a day. Telemetry indicates sinus mechanism. Pressures have been elevated 179/ 72 heart rate 62 afebrile maintaining oxygen saturation on room air. Prior to however she was on lisinopril which has been discontinued secondary to elevated kidney function. Currently on 50 mg of Lopressor 3 times a day for rate control. Objective - Vital Signs Vital signs: Vital Signs Temp 98.2 F 12/26/17 11:36 Pulse 62 12/26/17 11:36 Resp 18 12/26/17 11:36 BP 179/72 12/26/17 11:36 Pulse Ox 98 12/26/17 11:36 Intake & Output 12/25/17 12/26/17 12/26/17 18:59 06:59 18:59 Intake Total 480 Output Total 0 Balance 480 0 Weight 68.5 kg Intake: Oral 480 Output: Urine 0 Other: Voiding Method Diaper Diaper Diaper Incontinent Incontinent Incontinent # Voids 1 ABP, PAP, CO, CI - Last Documented Arterial Blood Pressure 127/47 - Exam GENERAL: Well-appearing, well-nourished and in no acute distress. NECK: Supple without JVD or thyromegaly. LUNGS: Breath sounds clear to auscultation bilaterally. Respiration equal and unlabored. No wheezes, rales or rhonchi. HEART: Regular rate and rhythm without murmurs, rubs or gallops. S1 and S2 heard. EXTREMITIES: Normal range of motion, no edema. No clubbing or cyanosis. Peripheral pulses intact. - Labs CBC & Chem 7: 12/23/17 05:56 12/21/17 04:03 Assessment and Plan Assessment: ASSESSMENT Acute GI bleed Severe anemia secondary to above Paroxysmal atrial fibrillation History of CVA Hypertension Dyslipidemia Chronic kidney disease PLAN Add amlodipine 5 mg daily for blood pressure control. Continue Lopressor 50 mg 3 times a day for rate control. Patient is currently in sinus mechanism. Continue Eliquis 2.5 mg twice a day. Further recommendations to follow based upon clinical course. Nurse Practitioner note has been reviewed, I agree with a documented findings and plan of care. Patient was seen and examined.
[2017-12-26] MEDS: amLODIPine 5 MG TAB PO SCH (15:48)
--- NOTE | 2017-12-26 17:06 | PN ---
PROGRESS NOTE DATE OF SERVICE: 12/26/2017 This is a 82-year-old male white female who was admitted in a initially with a GI bleeding and acute blood loss anemia. Her hemoglobin was below 4 and at the time of admission, and she was in ICU and Dr. Montoya was seeing the patient for ICU management and she received multiple blood transfusions. Her condition became stable, she was transferred out of ICU. While she was in the ICU, she was seen by Dr. Pritchard and she had upper endoscopy and there was no bleeding source identified and her bleeding was possibly due to the anticoagulation she is taking for paroxysmal atrial fibrillation and multiple strokes in the past. She has been on aspirin, Plavix, and Eliquis. The patient was transferred out of ICU and her hemoglobin is running around 9.2 now. She also developed atrial fibrillation with a rapid ventricular response. She was started on IV Cardizem and now she has converted back to sinus rhythm. Her vital signs are stable. Dr. Hays saw the patient for evaluation for inpatient rehabilitation. Dr. Hays has agreed to transfer her to [facility] rehab unit when her condition becomes stable. Her vital signs otherwise stable. Heart is in sinus rhythm. Lungs are clear. Neurologic she is improving. She had right hemiparesis that is improving and also her speech has also improved and if she continues to be stable, she will be transferred to [facility] rehab unit under Dr. Hays's care, possibly tomorrow. MMODL / IJN: [id number] /
[2017-12-26] MEDS: ATORVASTATIN 20 MG TAB PO SCH (20:20)
[2017-12-26 21:03] VITALS: RESP 16
--- NOTE | 2017-12-27 00:02 | P.PN ---
Subjective Progress Note Date: 12/26/17 Patient is being evaluated for recent GI bleed and history of left SELENE stroke and is examined in the ICU. 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 She was transferred to [facility] neurology ICU where she was evaluated by the neuro wheel cutter. There was concern the patient may have had bilateral carotid artery dissection. She was placed initially on Plavix and aspirin at [facility] and then just prior to being discharged she developed an episode of acute onset of paroxysmal atrial fibrillation. She was recommended to go to inpatient rehab and later on [facility] on Plavix and aspirin therapy. Apparently her workup at [facility] did not show evidence for bilateral carotid artery dissection. She was recommended after 3 weeks to start on anticoagulation due to her paroxysmal atrial fibrillation. Patient apparently was started on Eloquis while she was in the inpatient rehab at later on [facility]. She was discharged home and was to continue with outpatient PT/OT evaluation. Patient noted some improvement with her right-sided weakness during this home PT evaluation and treatment. Unfortunately prior to her admission to hospital on 12/17/2017 she developed severe weakness and inability to stand. She was brought into the emergency room and was admitted to hospital on 12/17/2017. Her hemoglobin in the ER was 3.7. She was given 4 units of packed red blood cells as blood transfusion and her hemoglobin today is 8.0. She was seen by gastroenterology and Dr. Laws and is being considered for possible endoscopy procedure tomorrow. The patient was sent for an emergent MRI of the brain yesterday which was reviewed. MRI reveals evidence of acute ischemia involving the left anterior cerebral artery and slightly more pronounced as compared to previous MRI of the brain performed on 11/13/2017. Also there is a new area seen high in the left frontoparietal region which suggest a new area of infarction. Patient clearly had some deterioration with increase in right-sided weakness on admission to hospital. At this time she has been taken off of all anticoagulation medications including Plavix, aspirin , and Eliquis. She is to remain off of these anticoagulants until she is reevaluated by Dr. Laws. Her MRI of the brain failed to reveal any evidence of hemorrhage. She was able to complete a routine EEG today which was reviewed and is moderately slow with no evidence of any epileptiform discharges. We reviewed the results of the MRI and EEG today with the patient. Neurologically she is showing improvement in her mental status today. She will need PT OT reevaluation tomorrow for further ongoing treatment. We will await further recommendations for multiple specialists that are seeing this patient. Case was discussed today with the stroke specialists at [facility] over the phone Dr. Mcpherson, who will convey this information to her neurologist that had seen her during her admission in November. At this point she is to remain off of all anticoagulant treatments. She is showing signs of paroxysmal atrial fibrillation today and cardiology has been consulted. We are waiting further recommendations from cardiology in regards to management of her paroxysmal atrial fibrillation and risk of recurrent stroke. This patient's overall prognosis at this time remains very guarded given her multiple complex medical issues. We will continue close neurological follow-up with this patient in the intensive care unit. The patient was sent for EGD procedure today which apparently came back within normal limits with no acute findings for cause of GI bleeding. Case was discussed today with cardiology and they are recommending that she not be started on anticoagulant for at least a few days. They are recommending Eloquis at a dose of 2.5 mg twice a day. We have also discuss with cardiology the need for possible watchman device. Dr. Montemayor will discuss this with the cardiology specialists at [place] and [facility] in the next few days. The patient continues to demonstrate right- sided weakness. As noted MRI does reveal a new area of possible infarction in the left frontoparietal region. This finding on the MRI would explain new symptoms of weakness for this patient. Patient was transferred out of the intensive care unit today. Her hemoglobin today is 9.1. She continues have right-sided hemiparesis and mild dysarthric speech. As per cardiology she will be started on anticoagulation today. She is to start on Eloquis 2.5 mg twice a day as her only treatment without use of Plavix or aspirin. Patient's hemoglobin today is very stable at 9.2. She has had no other evidence of active bleeding. She does have a history of paroxysmal atrial fibrillation and cardiology continues to follow her closely. Patient is awaiting discharge to rehab early this coming week. Overall prognosis at this time remains guarded. Objective - Vital Signs Vital signs: Vital Signs Temp 97.2 F L 12/26/17 00:00 Pulse 67 12/26/17 04:00 Resp 18 12/26/17 04:00 BP 177/75 12/26/17 00:00 Pulse Ox 95 12/26/17 00:00 Intake & Output 12/25/17 12/26/17 12/26/17 18:59 06:59 18:59 Intake Total 480 Output Total 0 Balance 480 0 Weight 68.5 kg Intake: Oral 480 Output: Urine 0 Other: Voiding Method Diaper Diaper Incontinent Incontinent # Voids 1 ABP, PAP, CO, CI - Last Documented Arterial Blood Pressure 127/47 - Exam Physical Examination: PHYSICAL EXAMINATION: Patient is resting comfortably in bed. VITAL SIGNS: Blood pressure is [158/69]. Heart rate is [63]. Respiration is [18] . Temperature is [97.7]. HEENT: Head is atraumatic, neck is supple, there were no carotid bruits. CHEST: Lungs are clear to auscultation and percussion. CARDIAC: S1, S2 normal rate and rhythm. There is no murmur. ABDOMEN: Soft and nontender. Bowel sounds are present. EXTREMITIES: There is no pedal edema. Peripheral pulses are present. Neurological examination: Patient is awake alert and oriented 3. Her speech is slow and at times she does have mild dysarthric speech. She is much more awake and alert today and is following all commands. Her memory and intellectual functions only slightly impaired. Cranial nerve examination: Cranial nerves II through XII are grossly intact. Motor examination: Patient has right pronator drift. Muscle tone is normal. Muscle strength testing reveals right-sided hemiparesis 4/5 throughout. She continues to demonstrate right-sided hemiparesis on exam. Sensory exam was intact. Deep tendon reflexes: The DTRs are 1+ and symmetric. Plantar responses flexor bilaterally. Pronation gait cannot be assessed in this patient at this time. - Labs CBC & Chem 7: 12/23/17 05:56 12/21/17 04:03 Assessment and Plan (1) Gastrointestinal hemorrhage Current Visit: Yes Status: Acute Code(s): K92.2 - GASTROINTESTINAL HEMORRHAGE, UNSPECIFIED SNOMED Code(s): 13341791 (2) Acute encephalopathy Current Visit: No Status: Acute Code(s): G93.40 - ENCEPHALOPATHY, UNSPECIFIED SNOMED Code(s): 34597296 (3) Anemia Current Visit: Yes Status: Chronic Code(s): D64.9 - ANEMIA, UNSPECIFIED SNOMED Code(s): 115126399 (4) Carotid dissection, bilateral Current Visit: No Status: Acute Code(s): I77.71 - DISSECTION OF CAROTID ARTERY SNOMED Code(s): 459997785 (5) History of stroke Current Visit: No Status: Chronic Code(s): Z86.73 - PRSNL HX OF TIA (TIA), AND CEREB INFRC W/O RESID DEFICITS SNOMED Code(s): 753271296 Plan: This patient is a 82-year-old right-handed white female who was seen in neurology consultation for evaluation of acute right-sided weakness and possible extension of recent stroke. Patient was admitted to hospital with massive GI bleeding and an initial hemoglobin of 3.7. She was seen by gastroenterology and underwent an upper GI endoscopy procedure which revealed no acute source for bleeding. It is felt that her bleeding was due to excessive anticoagulation. She has been taken off of all anticoagulants due to her history of atrial fibrillation. She has history of paroxysmal atrial fibrillation and recent left hemispheric stroke. She is now going to be restarted only on Eloquis at a dose of 2.5 mg twice a day in 2-3 days. Cardiology is following the patient closely. She has had no further signs of GI bleeding. Her hemoglobin today is 9.1. She was transferred out of the intensive care unit to the selective care floor and is doing well. We will continue close neurological follow-up for the patient during this admission. Patient should continue with physical therapy evaluations. She may benefit from placement in subacute rehab at the time of discharge. Her overall prognosis at this time remains very guarded. She was seen by cardiology today and has been restarted on Eloquis 2.5 mg twice a day. The patient continues to do quite well overall and is shown improvement in her right-sided hemiparesis. Today on examination she is showing improvement with the use of her right side in terms of right arm strength. Her speech also is showing improvement. We will await to see if the patient would benefit from inpatient rehabilitation for subacute rehab. Overall she is making good progress. She is to continue with anticoagulation as prescribed by cardiology. She is being considered for possible subacute rehab placement once again. The patient continues to make slow progress in recovery from her recent stroke. Her hemoglobin today is stable at 9.2. Would continue close monitoring for any recurrent signs of bleeding. She is to continue on her current dose of Eloquis. We will continue close neurological follow-up for the patient during this admission. Patient may be going to subacute rehab early this next week. She continues to make very good progress in terms of her recent stroke. Her right-sided hemiparesis is showing improvement. Her overall prognosis at this time remains guarded.
[2017-12-27] MEDS: ACETAMINOPHEN TAB 325 MG TAB PO PRN ×3 (03:24→20:26)
[2017-12-27] MEDS: SODIUM CHLORIDE 0.45% 1,000 ML IV SCH (05:05)
[2017-12-27] MEDS: METOPROLOL TARTRATE 50 MG TAB PO SCH ×3 (05:55→20:24)
[2017-12-27] MEDS: LEVOTHYROXINE 125 MCG TAB PO SCH (05:56)
[2017-12-27 06:31] LABS: Basophils # (A) 0.1 k/uL (0-0.2); Basophils % (A) 1 %; Eosinophils # (A) 0.2 k/uL (0-0.7); Eosinophils % (A) 3 %; HCT 28.5 % (34.0-46.0); HGB 8.9 gm/dL (11.4-16.0); Hypochromasia Marked; Lymphocytes # (A) 1.2 k/uL (1.0-4.8); Lymphocytes % (A) 17 %; MCH 26.8 pg (25.0-35.0); MCHC 31.4 g/dL (31.0-37.0); MCV 85.5 fL (80.0-100.0); Mean Platelet Volume 7.2; Monocytes # (A) 0.4 k/uL (0-1.0); Monocytes % (A) 5 %; Neutrophils # (A) 4.9 k/uL (1.3-7.7); Neutrophils % (A) 72 %; Platelet Count 248 k/uL (150-450); Poikilocytosis Moderate; RBC 3.33 m/uL (3.80-5.40); RDW 15.9 % (11.5-15.5); WBC 6.9 k/uL (3.8-10.6)
[2017-12-27] MEDS: PANTOPRAZOLE 40 MG TABLET PO SCH (08:05)
[2017-12-27] MEDS: APIXABAN 2.5 MG TABLET PO SCH ×2 (08:05→20:24)
[2017-12-27] MEDS: amLODIPine 5 MG TAB PO SCH (08:05)
--- NOTE | 2017-12-27 08:14 | P.PN ---
Subjective Progress Note Date: 12/27/17 This is a pleasant 82-year-old female patient with history of CVA in November at which time CT angiogram was suggestive of possible internal carotid artery dissection and patient was transferred [facility]. There was no definitive evidence of dissection. She has a history of paroxysmal atrial fibrillation. She was admitted with complaint of extreme weakness and hemoglobin of 3.7. Prior to admission she was on Eliquis 5 mg by mouth twice a day. She was having black stools. Patient's Plavix was discontinued and eliquis is now 2.5 mg by mouth twice a day. She's had no further bleeding and her hemoglobin is stable at 9.2. She is currently on metoprolol tart 50 mg by mouth 3 times a day and is maintaining sinus rhythm. 12/27/2017 Patient seen and examined this morning, feels well, anticipating transferred to rehab today. Hemoglobin remaining stable at 8.9. Blood pressure 150/60 with a heart rate in the 60s, 98% on room air. In atrial fibrillation with controlled ventricular response. Objective - Vital Signs Vital signs: Vital Signs Temp 97.4 F L 12/27/17 03:38 Pulse 63 12/27/17 03:38 Resp 16 12/27/17 03:38 BP 150/65 12/27/17 03:38 Pulse Ox 67 L 12/27/17 03:38 Intake & Output 12/26/17 12/27/17 12/27/17 18:59 06:59 18:59 Intake Total 240 1200 Balance 240 1200 Weight 69.5 kg Intake: IV 1200 Sodium Chloride 0.45% 1, 1200 000 ml @ 75 mls/hr IV . [id number] [facility] Rx#:[id number] Oral 240 Other: Voiding Method Diaper Diaper Incontinent Incontinent # Voids 2 1 ABP, PAP, CO, CI - Last Documented Arterial Blood Pressure 127/47 - Exam PHYSICAL EXAMINATION: HEENT: [Head is atraumatic, normocephalic. Pupils equal, round. Neck is supple. There is no elevated jugular venous pressure.] HEART EXAMINATION: [Heart sounds regular, S1 and S2 irregularly irregular . No murmur or gallop heard.] CHEST EXAMINATION:[ Lungs are clear to auscultation and precussion. No chest wall tenderness is noted on palpation or with deep breathing.] ABDOMEN: [ Soft, nontender. Bowel sounds are heard. No organomegaly noted]. EXTREMITIES:[ 2+ peripheral pulses with no evidence of peripheral edema and no calf tenderness noted]. NEUROLOGIC [patient is awake, alert and oriented x3.] . - Labs CBC & Chem 7: 12/27/17 05:48 12/21/17 04:03 Labs: Abnormal Lab Results - Last 24 Hours (Table) 12/27/17 Range/Units 05:48 RBC 3.33 L (3.80-5.40) m/uL Hgb 8.9 L (11.4-16.0) gm/dL Hct 28.5 L (34.0-46.0) % RDW 15.9 H (11.5-15.5) % Assessment and Plan Plan: Assessment: #1 GI bleed #2 acute blood loss anemia secondary to above #3 paroxysmal atrial fibrillation #4 history of CVA Plan: From cardiology perspective, we will continue Eliquis 2.5 mg by mouth twice a day and metoprolol titrate 50 mg by mouth 3 times a day. Arrangements are being made for the patient to transfer to rehab today. We will schedule a follow-up appointment once she is discharged from the hospital. READING AIDE note has been reviewed, I agree with a documented findings and plan of care. Patient was seen and examined.
--- NOTE | 2017-12-27 12:19 | P.PN ---
Subjective Progress Note Date: 12/27/17 This is a pleasant 82-year-old female patient with history of CVA in November at which time CT angiogram was suggestive of possible internal carotid artery dissection and patient was transferred [facility]. There was no definitive evidence of dissection. She has a history of paroxysmal atrial fibrillation. She was admitted with complaint of extreme weakness and hemoglobin of 3.7. Prior to admission she was on Eliquis 5 mg by mouth twice a day. She was having black stools. Patient's Plavix was discontinued and eliquis is now 2.5 mg by mouth twice a day. She's had no further bleeding and her hemoglobin is stable at 9.2. She is currently on metoprolol tart 50 mg by mouth 3 times a day and is maintaining sinus rhythm. 12/26/2017 Patient seen and examined this morning, feels well, anticipating transferred to rehab today. Hemoglobin remaining stable at 8.9. Blood pressure 150/60 with a heart rate in the 60s, 98% on room air. In atrial fibrillation with controlled ventricular response. 12/27/2017 Patient was seen and examined this morning, overall feels well. Being transferred to [facility] today. Objective - Vital Signs Vital signs: Vital Signs Temp 97 F L 12/27/17 08:00 Pulse 83 12/27/17 08:00 Resp 16 12/27/17 08:00 BP 134/70 12/27/17 08:00 Pulse Ox 96 12/27/17 08:00 Intake & Output 12/26/17 12/27/17 12/27/17 18:59 06:59 18:59 Intake Total 240 1200 Balance 240 1200 Weight 69.5 kg Intake: IV 1200 Sodium Chloride 0.45% 1, 1200 000 ml @ 75 mls/hr IV . [id number] [facility] Rx#:[id number] Oral 240 Other: Voiding Method Diaper Diaper Diaper Incontinent Incontinent Incontinent # Voids 2 1 ABP, PAP, CO, CI - Last Documented Arterial Blood Pressure 127/47 - Exam PHYSICAL EXAMINATION: HEENT: [Head is atraumatic, normocephalic. Pupils equal, round. Neck is supple. There is no elevated jugular venous pressure.] HEART EXAMINATION: [Heart sounds regular, S1 and S2 irregularly irregular . No murmur or gallop heard.] CHEST EXAMINATION:[ Lungs are clear to auscultation and precussion. No chest wall tenderness is noted on palpation or with deep breathing.] ABDOMEN: [ Soft, nontender. Bowel sounds are heard. No organomegaly noted]. EXTREMITIES:[ 2+ peripheral pulses with no evidence of peripheral edema and no calf tenderness noted]. NEUROLOGIC [patient is awake, alert and oriented x3.] . - Labs CBC & Chem 7: 12/27/17 05:48 12/21/17 04:03 Labs: Abnormal Lab Results - Last 24 Hours (Table) 12/27/17 Range/Units 05:48 RBC 3.33 L (3.80-5.40) m/uL Hgb 8.9 L (11.4-16.0) gm/dL Hct 28.5 L (34.0-46.0) % RDW 15.9 H (11.5-15.5) % Assessment and Plan Plan: Assessment: #1 GI bleed #2 acute blood loss anemia secondary to above #3 paroxysmal atrial fibrillation #4 history of CVA Plan: From cardiology perspective, we will continue Eliquis 2.5 mg by mouth twice a day and metoprolol titrate 50 mg by mouth 3 times a day. Arrangements are being made for the patient to transfer to rehab today. We will schedule a follow-up appointment once she is discharged from the hospital. PHY THERAPIST note has been reviewed, I agree with a documented findings and plan of care. Patient was seen and examined.
[2017-12-27] MEDS ORDERED: ERGOCALCIFEROL 50,000 UNIT CAP PO SCH (13:30)
--- NOTE | 2017-12-27 14:26 | CDI ---
Last Revision, April 2017 Documentation Clarification Form 2nd Request Date: 12/24/2017 10:05:00 AM From: Crystal Martinez RN, CCDS Admit Date: 12/17/2017 3:31:00 PM Patient Name: Radha Del Angel Visit Number: [id number] ATTENTION: The Clinical Documentation Specialists (CDI) and [facility] Coding Staff appreciate your assistance in clarifying documentation. Please respond to the clarification below the line at the bottom and electronically sign. The CDI & [facility] Coding staff will review the response and follow-up if needed. Please note: Queries are made part of the Legal Health Record. If you have any questions, please contact the author of this message via ITS. Britt Olivera MD Encephalopathy is documented in the Neurology Progress Notes and requires further specificity. History/Risk factors: GIB, A/C RF, metabolic acidosis, Hypovolemic shock Clinical Indicators: Labs: HGB: 8.4/8.2/8/9.2/9.1/9.2, WBC 18.6/15.6/9.8/7.3, Neutrophils 15.9/12.8, BUN 97/71/38/19/14, Creatinine 2.2/1.79/1.25/.9, t protein 5.4/2.9 12/19 EEG:"This EEG is moderately abnormal in a diffuse fashion due to slowing of the EEG background. The EEG failed to reveal any focal, lateralized or epileptiform abnormalities." 12/18 MRI Brain:"Acute ischemic change in the left pericallosal distribution." Treatment: Consults: 4 Units PRBC's Transfused 2L IVF Bolus In your professional opinion, can you please clarify the specific type of encephalopathy, if known? Metabolic Encephalopathy Toxic Encephalopathy Traumatic Encephalopathy Causal Condition: Alcoholism, Hepatitis, other disease process? Other, please specify Unable to determine Please continue to document in your progress notes and discharge summary in order to capture severity of illness and risk of mortality. Include clinical findings that support your diagnosis. MTDD
--- NOTE | 2017-12-27 15:37 | DS ---
DISCHARGE SUMMARY DATE OF ADMISSION: 12/17/2017. DATE OF DISCHARGE: 12/27/2017. DISCHARGE DIAGNOSES: 1. Acute GI bleeding. 2. Severe blood loss anemia. 3. Hypertensive cardiovascular disease. 4. Paroxysmal atrial fibrillation. 5. Cerebrovascular accident with right hemiparesis. 6. Acute on chronic renal failure. 7. Hypothyroidism. 8. Degenerative arthritis multiple joints. This is an 82-year-old white female who was brought to the emergency room with GI bleeding. In the emergency room her hemoglobin was found to be 3.7, and she was extremely weak and confused and she was admitted to ICU. In the ICU she had multiple transfusions. She has been on Eliquis, Plavix and also aspirin as she has a history of paroxysmal atrial fibrillation and past history of recurrent strokes. In the ICU, the patient was seen by Dr. Carrion and Dr. Montoya for ICU management and also she was seen by [facility] and Dr. Galvan in consultation. In the emergency room the patient had a seizure-like activity and so she was seen by Dr. Glavan for neurological evaluation. For details of the physical examination at the time of admission, please refer to the history and physical. HOSPITAL COURSE: As her condition stabilized, she was transferred out of ICU and her hemoglobin came up to around 9 and is staying like that now and the patient developed atrial fibrillation with a rapid ventricular response and the patient was started on Cardizem IV drip and the patient converted back to sinus rhythm. She was also getting physical therapy and occupational therapy. The patient's ambulatory started improving, but she still needs a lot of therapy and Dr. Hays saw the patient in consultation and he recommended at the time of discharge she could be transferred to [facility] under Dr. Hays's service. Cardiology and Pulmonology and also neurologist have cleared her for discharge and accordingly patient is going to be discharged today, that is 12/27/2017 and she will be transferred to [facility] under Dr. Hays's service. She will continue Lipitor 20 mg p.o. daily, metoprolol tartrate 50 mg p.o. 3 times a day, Eliquis 2.5 mg p.o. b.i.d., vitamin D 776487 units orally every 30 days, Synthroid 125 mcg p.o. daily, Protonix 40 mg p.o. daily. She will discontinue Pepcid. TASIA / RADHAN: [id number] /
[2017-12-27] MEDS: ATORVASTATIN 20 MG TAB PO SCH (20:24)
[2017-12-28] MEDS: LEVOTHYROXINE 125 MCG TAB PO SCH (05:59)
[2017-12-28] MEDS: PANTOPRAZOLE 40 MG TABLET PO SCH (08:20)
[2017-12-28] MEDS: APIXABAN 2.5 MG TABLET PO SCH (08:20)
[2017-12-28] MEDS: amLODIPine 5 MG TAB PO SCH (08:20)
[2017-12-28] MEDS: METOPROLOL TARTRATE 50 MG TAB PO SCH (08:20)
[2017-12-28] MEDS ORDERED: FAMOTIDINE 20 MG TAB PO SCH (09:00)
[2017-12-28 09:58] VITALS: BP 153/68; PULSE 76; TEMP 97.6
--- NOTE | 2017-12-29 00:06 | P.PN ---
Subjective Progress Note Date: 12/27/17 Patient is being evaluated for recent GI bleed and history of left SELENE stroke and is examined in the ICU. 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 She was transferred to [facility] neurology ICU where she was evaluated by the neuro assistant maintenance manager. There was concern the patient may have had bilateral carotid artery dissection. She was placed initially on Plavix and aspirin at [facility] and then just prior to being discharged she developed an episode of acute onset of paroxysmal atrial fibrillation. She was recommended to go to inpatient rehab and later on [facility] on Plavix and aspirin therapy. Apparently her workup at [facility] did not show evidence for bilateral carotid artery dissection. She was recommended after 3 weeks to start on anticoagulation due to her paroxysmal atrial fibrillation. Patient apparently was started on Eloquis while she was in the [facility] She was discharged home and was to continue with outpatient PT/OT evaluation. Patient noted some improvement with her right-sided weakness during this home PT evaluation and treatment. Unfortunately prior to her admission to hospital on 12/17/2017 she developed severe weakness and inability to stand. She was brought into the emergency room and was admitted to hospital on 12/17/2017. Her hemoglobin in the ER was 3.7. She was given 4 units of packed red blood cells as blood transfusion and her hemoglobin today is 8.0. She was seen by gastroenterology and Dr. Laws and is being considered for possible endoscopy procedure tomorrow. The patient was sent for an emergent MRI of the brain yesterday which was reviewed. MRI reveals evidence of acute ischemia involving the left anterior cerebral artery and slightly more pronounced as compared to previous MRI of the brain performed on 11/13/2017. Also there is a new area seen high in the left frontoparietal region which suggest a new area of infarction. Patient clearly had some deterioration with increase in right-sided weakness on admission to hospital. At this time she has been taken off of all anticoagulation medications including Plavix, aspirin , and Eliquis. She is to remain off of these anticoagulants until she is reevaluated by Dr. Laws. Her MRI of the brain failed to reveal any evidence of hemorrhage. She was able to complete a routine EEG today which was reviewed and is moderately slow with no evidence of any epileptiform discharges. We reviewed the results of the MRI and EEG today with the patient. Neurologically she is showing improvement in her mental status today. She will need PT OT reevaluation tomorrow for further ongoing treatment. We will await further recommendations for multiple specialists that are seeing this patient. Case was discussed today with the stroke specialists at [facility] over the phone Dr. Mcpherson, who will convey this information to her neurologist that had seen her during her admission in November. At this point she is to remain off of all anticoagulant treatments. She is showing signs of paroxysmal atrial fibrillation today and cardiology has been consulted. We are waiting further recommendations from cardiology in regards to management of her paroxysmal atrial fibrillation and risk of recurrent stroke. This patient's overall prognosis at this time remains very guarded given her multiple complex medical issues. We will continue close neurological follow-up with this patient in the intensive care unit. The patient was sent for EGD procedure today which apparently came back within normal limits with no acute findings for cause of GI bleeding. Case was discussed today with cardiology and they are recommending that she not be started on anticoagulant for at least a few days. They are recommending Eloquis at a dose of 2.5 mg twice a day. We have also discuss with cardiology the need for possible watchman device. Dr. Montemayor will discuss this with the cardiology specialists at [place] and [facility] in the next few days. The patient continues to demonstrate right- sided weakness. As noted MRI does reveal a new area of possible infarction in the left frontoparietal region. This finding on the MRI would explain new symptoms of weakness for this patient. Patient was transferred out of the intensive care unit today. Her hemoglobin today is 9.1. She continues have right-sided hemiparesis and mild dysarthric speech. As per cardiology she will be started on anticoagulation today. She is to start on Eloquis 2.5 mg twice a day as her only treatment without use of Plavix or aspirin. Patient's hemoglobin today is very stable at 9.2. She has had no other evidence of active bleeding. She does have a history of paroxysmal atrial fibrillation and cardiology continues to follow her closely. Patient is awaiting discharge to rehab early this coming week. The patient states she is feeling somewhat better and notices improvement with her right-sided weakness. She is being considered for transfer to subacute rehab at [facility] possibly tomorrow. Overall prognosis at this time remains guarded. Objective - Vital Signs Vital signs: Vital Signs Temp 97.4 F L 12/27/17 03:38 Pulse 63 12/27/17 03:38 Resp 16 12/27/17 03:38 BP 150/65 12/27/17 03:38 Pulse Ox 67 L 12/27/17 03:38 Intake & Output 12/26/17 12/27/17 12/27/17 18:59 06:59 18:59 Intake Total 240 1200 Balance 240 1200 Weight 69.5 kg Intake: IV 1200 Sodium Chloride 0.45% 1, 1200 000 ml @ 75 mls/hr IV . [id number] Rx#:[id number] Oral 240 Other: Voiding Method Diaper Diaper Incontinent Incontinent # Voids 2 1 ABP, PAP, CO, CI - Last Documented Arterial Blood Pressure 127/47 - Exam Physical Examination: PHYSICAL EXAMINATION: Patient is resting comfortably in bed. VITAL SIGNS: Blood pressure is [149/65]. Heart rate is [69]. Respiration is [16] . Temperature is [98.0]. HEENT: Head is atraumatic, neck is supple, there were no carotid bruits. CHEST: Lungs are clear to auscultation and percussion. CARDIAC: S1, S2 normal rate and rhythm. There is no murmur. ABDOMEN: Soft and nontender. Bowel sounds are present. EXTREMITIES: There is no pedal edema. Peripheral pulses are present. Neurological examination: Patient is awake alert and oriented 3. Her speech is slow and at times she does have mild dysarthric speech. She is much more awake and alert today and is following all commands. Her memory and intellectual functions only slightly impaired. Cranial nerve examination: Cranial nerves II through XII are grossly intact. Motor examination: Patient has right pronator drift. Muscle tone is normal. Muscle strength testing reveals right-sided hemiparesis 4/5 throughout. She continues to demonstrate right-sided hemiparesis on exam. Sensory exam was intact. Deep tendon reflexes: The DTRs are 1+ and symmetric. Plantar responses flexor bilaterally. Pronation gait cannot be assessed in this patient at this time. - Labs CBC & Chem 7: 12/27/17 05:48 12/21/17 04:03 Labs: Abnormal Lab Results - Last 24 Hours (Table) 12/27/17 Range/Units 05:48 RBC 3.33 L (3.80-5.40) m/uL Hgb 8.9 L (11.4-16.0) gm/dL Hct 28.5 L (34.0-46.0) % RDW 15.9 H (11.5-15.5) % Assessment and Plan (1) Gastrointestinal hemorrhage Status: Acute Code(s): K92.2 - GASTROINTESTINAL HEMORRHAGE, UNSPECIFIED SNOMED Code(s): 78481076 (2) Acute encephalopathy Status: Acute Code(s): G93.40 - ENCEPHALOPATHY, UNSPECIFIED SNOMED Code(s): 11622318 (3) Anemia Status: Chronic Code(s): D64.9 - ANEMIA, UNSPECIFIED SNOMED Code(s): 677522857 (4) Carotid dissection, bilateral Status: Acute Code(s): I77.71 - DISSECTION OF CAROTID ARTERY SNOMED Code(s) : 807185445 (5) History of stroke Status: Chronic Code(s): Z86.73 - PRSNL HX OF TIA (TIA), AND CEREB INFRC W/O RESID DEFICITS SNOMED Code(s): 796126956 Plan: This patient is a 82-year-old right-handed white female who was seen in neurology consultation for evaluation of acute right-sided weakness and possible extension of recent stroke. Patient was admitted to hospital with massive GI bleeding and an initial hemoglobin of 3.7. She was seen by gastroenterology and underwent an upper GI endoscopy procedure which revealed no acute source for bleeding. It is felt that her bleeding was due to excessive anticoagulation. She has been taken off of all anticoagulants due to her history of atrial fibrillation. She has history of paroxysmal atrial fibrillation and recent left hemispheric stroke. She is now going to be restarted only on Eloquis at a dose of 2.5 mg twice a day in 2-3 days. Cardiology is following the patient closely. She has had no further signs of GI bleeding. Her hemoglobin today is 9.1. She was transferred out of the intensive care unit to the selective care floor and is doing well. We will continue close neurological follow-up for the patient during this admission. Patient should continue with physical therapy evaluations. She may benefit from placement in subacute rehab at the time of discharge. Her overall prognosis at this time remains very guarded. She was seen by cardiology today and has been restarted on Eloquis 2.5 mg twice a day. The patient continues to do quite well overall and is shown improvement in her right-sided hemiparesis. Today on examination she is showing improvement with the use of her right side in terms of right arm strength. Her speech also is showing improvement. We will await to see if the patient would benefit from inpatient rehabilitation for subacute rehab. Overall she is making good progress. She is to continue with anticoagulation as prescribed by cardiology. She is being considered for possible subacute rehab placement once again. The patient continues to make slow progress in recovery from her recent stroke. Her hemoglobin today is stable at 9.2. Would continue close monitoring for any recurrent signs of bleeding. She is to continue on her current dose of Eloquis. We will continue close neurological follow-up for the patient during this admission. Patient is being evaluated for discharge to [facility] for subacute rehab possibly tomorrow. She continues to make very good progress in terms of her recent stroke. Her right-sided hemiparesis is showing improvement. Her overall prognosis at this time remains guarded.
--- NOTE | 2017-12-30 08:51 | CDI ---
Last Revision, April 2017 Documentation Clarification Form Date: 12/24/2017 10:05:00 AM Resubmitted 3rd request From: Crystal Martinez RN, CCDS Admit Date: 12/17/2017 3:31:00 PM Patient Name: Radha Del Angel Visit Number: [id number] Discharge Date: 12/28/2017 ATTENTION: The Clinical Documentation Specialists (CDI) and [facility] Coding Staff appreciate your assistance in clarifying documentation. Please respond to the clarification below the line at the bottom and electronically sign. The CDI & [facility] Coding staff will review the response and follow-up if needed. Please note: Queries are made part of the Legal Health Record. If you have any questions, please contact the author of this message via ITS. Britt Olivera MD Encephalopathy is documented in the Neurology Progress Notes. History/Risk factors: GIB, A/C RF, met acidosis, hypovolemic shock Clinical Indicators: Labs: HGB: 8.4/8.2/8/9.2/9.1/9.2, WBC 18.6/15.6/9.8/7.3, Neutrophils 15.9/12.8, BUN 97/71/38/19/14, Creatinine 2.2/1.79/1.25/.9, t protein 5.4/2.9 12/19 EEG:"This EEG is moderately abnormal in a diffuse fashion due to slowing of the EEG background. The EEG failed to reveal any focal, lateralized, or epileptiform abnormalities." 12/18 MRI Brain:"Acute ischemic change in the left pericallosal distribution." Treatment: 4 Units PRBC's Transfused 2L IVF Bolus In your professional opinion, can you please clarify the specific type of encephalopathy, if known? Metabolic Encephalopathy Toxic Encephalopathy Traumatic Encephalopathy Causal Condition: Alcoholism, Hepatitis, other disease process? Other, please specify Unable to determine Please continue to document in your progress notes and discharge summary in order to capture severity of illness and risk of mortality. Include clinical findings that support your diagnosis. MTDD
== END 2017-12-28 13:10 | DRG 377 ==
LOC: EC 12:53 → 6ICU 15:31 → 5MS5E 12-21 10:50 → 6SEL 12-21 15:27
PROVIDERS: ADMIT Internal Medicine; ATTEND Internal Medicine
PROC: 30233N1 Transfusion of Nonautologous Red Blood Cells into Peripheral Vein, Percutaneous Approach (ICD-10-PCS; 2017-12-17)
PROC: 04HY32Z Insertion of Monitoring Device into Lower Artery, Percutaneous Approach (ICD-10-PCS; 2017-12-17)
PROC: 4A133B1 Monitoring of Arterial Pressure, Peripheral, Percutaneous Approach (ICD-10-PCS; 2017-12-17)
PROC: 4A133J1 Monitoring of Arterial Pulse, Peripheral, Percutaneous Approach (ICD-10-PCS; 2017-12-17)
PROC: 02H633Z Insertion of Infusion Device into Right Atrium, Percutaneous Approach (ICD-10-PCS; 2017-12-17)
PROC: 0DJ08ZZ Inspection of Upper Intestinal Tract, Via Natural or Artificial Opening Endoscopic (ICD-10-PCS; principal; 2017-12-20 08:25)
DX: K29.71 Gastritis, unspecified, with bleeding (principal); G93.40 Encephalopathy, unspecified; I77.71 Dissection of carotid artery; R57.1 Hypovolemic shock; D62 Acute posthemorrhagic anemia; E87.0 Hyperosmolality and hypernatremia; E87.2 Acidosis; I69.351 Hemiplegia and hemiparesis following cerebral infarction affecting right dominant side; N17.9 Acute kidney failure, unspecified; K44.9 Diaphragmatic hernia without obstruction or gangrene; D72.829 Elevated white blood cell count, unspecified; E03.9 Hypothyroidism, unspecified; E78.5 Hyperlipidemia, unspecified; E87.8 Other disorders of electrolyte and fluid balance, not elsewhere classified; I13.10 Hypertensive heart and chronic kidney disease without heart failure, with stage 1 through stage 4 chronic kidney disease, or unspecified chronic kidney disease; N18.9 Chronic kidney disease, unspecified; I48.0 Paroxysmal atrial fibrillation; I48.2 Chronic atrial fibrillation; M15.9 Polyosteoarthritis, unspecified; R29.810 Facial weakness; G40.909 Epilepsy, unspecified, not intractable, without status epilepticus; Z79.01 Long term (current) use of anticoagulants; Z79.02 Long term (current) use of antithrombotics/antiplatelets; Z79.82 Long term (current) use of aspirin; Z79.899 Other long term (current) drug therapy; Z80.0 Family history of malignant neoplasm of digestive organs; Z80.3 Family history of malignant neoplasm of breast; Z82.0 Family history of epilepsy and other diseases of the nervous system; Z83.3 Family history of diabetes mellitus; Z82.61 Family history of arthritis; T68.XXXA Hypothermia, initial encounter; Z79.890 Hormone replacement therapy; Z88.1 Allergy status to other antibiotic agents; Z88.5 Allergy status to narcotic agent
CPT/HCPCS: 36415; 43235; 51702; 70450; 70544; 70551; 71045; 71046; 80048; 80053; 81003; 82550; 82553; 82805; 83605; 83735; 84100; 84132; 84484; 85025; 85610; 85730; 86850; 86900; 86901; 86920; 87324; 93005; 94760; 95819; 96374; 96375; 99291

== ENCOUNTER 2018-03-09 18:57 | Inpatient (IN) | payer MEDICARE ==
[2018-03-09] MEDS ORDERED: SODIUM CHLORIDE 0.9% 1,000 ML IV STA (19:13)
[2018-03-09] MEDS ORDERED: PANTOPRAZOLE 40 MG/10 ML VIAL IVP STA (19:20)
--- NOTE | 2018-03-09 19:22 | ED ---
General Adult HPI - General Chief complaint: Recheck/Abnormal Lab/Rx Stated complaint: LOW HEMOGLOBIN Time Seen by Provider: 03/09/18 19:13 Source: patient, RN notes reviewed, old records reviewed Mode of arrival: ambulatory Limitations: no limitations - History of Present Illness Initial comments: 82-year-old female history of atrial fibrillation on Eliquis, presents for evaluation of low hemoglobin. Patient had patient blood drawn today had hemoglobin 4.7. This was drawn secondary to rectal bleeding which occurred yesterday. She states her stool was blood-tinged. Patient denies preceding melena. She has no history of peptic ulcer. She does report history of heartburn. Denies abdominal pain. Denies nausea vomiting. Denies fever or chills. - Related Data Home Medications Medication Instructions Recorded Confirmed Levothyroxine Sodium [Synthroid] 125 mcg PO DAILY 08/31/15 03/09/18 Ergocalciferol (Vitamin D2) 50,000 unit PO Q30D 05/12/17 03/09/18 [Vitamin D2] Apixaban [Eliquis] 2.5 mg PO BID 12/17/17 03/09/18 Previous Rx's Medication Instructions Recorded Atorvastatin [Lipitor] 20 mg PO HS tab 12/28/17 Metoprolol Tartrate [Lopressor] 50 mg PO TID tab 12/28/17 Pantoprazole [Protonix] 40 mg PO DAILY tablet. 12/28/17 amLODIPine [Norvasc] 5 mg PO DAILY tab 12/28/17 Allergies Allergy/AdvReac Type Severity Reaction Status Date / Time codeine Allergy Rash/Hives Verified 03/09/18 19:27 ciprofloxacin AdvReac Diarrhea Verified 03/09/18 19:27 Review of Systems ROS Statement: Those systems with pertinent positive or pertinent negative responses have been documented in the HPI. ROS Other: All systems not noted in ROS Statement are negative. 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 Chronic renal failure, hypertension, hyperlipidemia, hypothyroidism, history of rheumatic fever, history of scarlet fever, History of Any Multi-Drug Resistant Organisms: None Reported Past Surgical History: Adenoidectomy, Tonsillectomy Additional Past Surgical History / Comment(s): part of thyroid removed Past Anesthesia/Blood Transfusion Reactions: Unable to Obtain Additional Past Anesthesia/Blood Transfusion Reaction / Comment(s): patient states she had a hard time waking up after having anesthesia Past Psychological History: No Psychological Hx Reported Smoking Status: Never smoker Past Alcohol Use History: Unable to Obtain Past Drug Use History: Unable to Obtain - Past Family History Father Family Medical History: No Reported History Additional Family Medical History / Comment(s): parkinsons Mother History Unknown: Yes Family Medical History: Cancer, Diabetes Mellitus Additional Family Medical History / Comment(s): colon cancer Sister(s) Additional Family Medical History / Comment(s): breast cancer General Exam Limitations: no limitations General appearance: alert, in no apparent distress Head exam: Present: atraumatic, normocephalic Eye exam: Present: normal appearance, PERRL ENT exam: Present: normal exam Neck exam: Present: normal inspection. Absent: tenderness, meningismus Respiratory exam: Present: normal lung sounds bilaterally. Absent: respiratory distress Cardiovascular Exam: Present: regular rate, normal rhythm GI/Abdominal exam: Present: soft. Absent: distended, tenderness, guarding Rectal exam: Present: black stool. Absent: bloody stool, hemorrhoids Extremities exam: Present: normal inspection, full ROM Neurological exam: Present: alert, oriented X3, CN II-XII intact. Absent: motor sensory deficit Psychiatric exam: Present: normal affect, normal mood Skin exam: Present: warm, dry, intact, pallor Course Vital Signs 03/09/18 03/09/18 03/09/18 19:02 19:36 19:40 Temperature 97.3 F L Pulse Rate 79 74 73 Respiratory 20 15 20 Rate Blood Pressure 130/50 141/56 O2 Sat by Pulse 100 98 Oximetry 03/09/18 03/09/18 03/09/18 20:10 20:30 20:40 Temperature Pulse Rate 72 Respiratory 13 Rate Blood Pressure 135/50 135/50 135/50 O2 Sat by Pulse 100 Oximetry 03/09/18 20:50 Temperature Pulse Rate Respiratory Rate Blood Pressure 135/50 O2 Sat by Pulse Oximetry Medical Decision Making - Medical Decision Making 82-year-old female sent in for abnormal outpatient laboratory studies. Patient has melanotic stool on exam which is heme positive. Hemoglobin is repeated in the emergency department, 4.8. Patient is transfused 3 units. She is started on IV Protonix. Case is discussed with the pulmonary automation developer who will accept the patient to the ICU for close monitoring. Case is also discussed with gastroenterology, Dr. Diaz, we did discuss possibility of PCC as the patient is on Eliquis, decided to transfuse, continue Protonix, and hold Eliquis , no PCC. Patient's vitals remained stable while in the emergency department. Discussed with the admitting physician who accepts. - Lab Data Result diagrams: 03/09/18 19:30 03/09/18 19:30 Lab Results 03/09/18 03/09/18 03/09/18 Range/Units 19:30 19:30 19:30 WBC 4.3 (3.8-10.6) k/uL RBC 2.20 L (3.80-5.40) m/uL Hgb 4.8 L* (11.4-16.0) gm/dL Hct 16.5 L* (34.0-46.0) % MCV 74.7 L (80.0-100.0) fL MCH 21.7 L (25.0-35.0) pg MCHC 29.0 L (31.0-37.0) g/dL RDW 15.6 H (11.5-15.5) % Plt Count 286 (150-450) k/uL Neutrophils % 58 % Lymphocytes % 27 % Monocytes % 7 % Eosinophils % 3 % Basophils % 1 % Neutrophils # 2.5 (1.3-7.7) k/uL Lymphocytes # 1.2 (1.0-4.8) k/uL Monocytes # 0.3 (0-1.0) k/uL Eosinophils # 0.1 (0-0.7) k/uL Basophils # 0.0 (0-0.2) k/uL Manual Slide Review Performed Large Platelets Present Polychromasia Present Hypochromasia Marked Poikilocytosis Moderate Poikilocytosis (manual Present Microcytosis Slight PT (9.0-12.0) sec INR (<1.2) APTT (22.0-30.0) sec Sodium 139 (137-145) mmol/L Potassium 4.4 (3.5-5.1) mmol/L Chloride 109 H (98-107) mmol/L Carbon Dioxide 23 (22-30) mmol/L Anion Gap 7 mmol/L BUN 27 H (7-17) mg/dL Creatinine 1.18 H (0.52-1.04) mg/dL Est GFR (CKD-EPI)AfAm 51 (>60 ml/min/1.73 sqM) Est GFR (CKD-EPI)NonAf 44 (>60 ml/min/1.73 sqM) Glucose 134 H (74-99) mg/dL Calcium 9.0 (8.4-10.2) mg/dL Total Bilirubin 0.2 (0.2-1.3) mg/dL AST 15 (14-36) U/L ALT 17 (9-52) U/L Alkaline Phosphatase 40 (38-126) U/L Total Protein 5.9 L (6.3-8.2) g/dL Albumin 3.3 L (3.5-5.0) g/dL Urine Color Urine Appearance (Clear) Urine pH (5.0-8.0) Ur Specific [place] (1.001-1.035) Urine Protein (Negative) Urine Glucose (UA) (Negative) Urine Ketones (Negative) Urine Blood (Negative) Urine Nitrite (Negative) Urine Bilirubin (Negative) Urine Urobilinogen (<2.0) mg/dL Ur Leukocyte Esterase (Negative) Urine RBC (0-5) /hpf Urine WBC (0-5) /hpf Urine Bacteria (None) /hpf Hyaline Casts (0-2) /lpf Urine Mucus (None) /hpf Stool Occult Blood (Negative) Blood Type A Negative Blood Type Recheck No Antibody Screen NEGATIVE Crossmatch See Detail Spec Expiration Date 03/12/2018232903/09/18 03/09/18 03/09/18 Range/Units 19:30 19:30 20:15 WBC (3.8-10.6) k/uL RBC (3.80-5.40) m/uL Hgb (11.4-16.0) gm/dL Hct (34.0-46.0) % MCV (80.0-100.0) fL MCH (25.0-35.0) pg MCHC (31.0-37.0) g/dL RDW (11.5-15.5) % Plt Count (150-450) k/uL Neutrophils % % Lymphocytes % % Monocytes % % Eosinophils % % Basophils % % Neutrophils # (1.3-7.7) k/uL Lymphocytes # (1.0-4.8) k/uL Monocytes # (0-1.0) k/uL Eosinophils # (0-0.7) k/uL Basophils # (0-0.2) k/uL Manual Slide Review Large Platelets Polychromasia Hypochromasia Poikilocytosis Poikilocytosis (manual Microcytosis PT 10.9 (9.0-12.0) sec INR 1.1 (<1.2) APTT 21.8 L (22.0-30.0) sec Sodium (137-145) mmol/L Potassium (3.5-5.1) mmol/L Chloride (98-107) mmol/L Carbon Dioxide (22-30) mmol/L Anion Gap mmol/L BUN (7-17) mg/dL Creatinine (0.52-1.04) mg/dL Est GFR (CKD-EPI)AfAm (>60 ml/min/1.73 sqM) Est GFR (CKD-EPI)NonAf (>60 ml/min/1.73 sqM) Glucose (74-99) mg/dL Calcium (8.4-10.2) mg/dL Total Bilirubin (0.2-1.3) mg/dL AST (14-36) U/L ALT (9-52) U/L Alkaline Phosphatase (38-126) U/L Total Protein (6.3-8.2) g/dL Albumin (3.5-5.0) g/dL Urine Color Light Yellow Urine Appearance Clear (Clear) Urine pH 5.5 (5.0-8.0) Ur Specific [place] 1.012 (1.001-1.035) Urine Protein Negative (Negative) Urine Glucose (UA) Negative (Negative) Urine Ketones Negative (Negative) Urine Blood Negative (Negative) Urine Nitrite Negative (Negative) Urine Bilirubin Negative (Negative) Urine Urobilinogen <2.0 (<2.0) mg/dL Ur Leukocyte Esterase Moderate H (Negative) Urine RBC <1 (0-5) /hpf Urine WBC 10 H (0-5) /hpf Urine Bacteria Rare H (None) /hpf Hyaline Casts 1 (0-2) /lpf Urine Mucus Rare H (None) /hpf Stool Occult Blood Positive H (Negative) Blood Type Blood Type Recheck Antibody Screen Crossmatch Spec Expiration Date Critical Care Time Critical Care Time: Yes Total Critical Care Time: 35 Disposition Clinical Impression: Anemia, Gastrointestinal hemorrhage Disposition: ADMITTED IP TO THIS HOSP Condition: Serious Is patient prescribed a controlled substance at d/c from ED?: No Referrals: Rolando Angel MD [Primary Care Provider] - 1-2 days Decision to Admit Reason: Admit from EC Decision Date: 03/09/18 Decision Time: 21:16
[2018-03-09 20:02] LABS: Basophils % (A) 1 %; Eosinophils # (A) 0.1 k/uL (0-0.7); Eosinophils % (A) 3 %; Hypochromasia Marked; Lymphocytes # (A) 1.2 k/uL (1.0-4.8); Lymphocytes % (A) 27 %; MCH 21.7 pg (25.0-35.0); MCV 74.7 fL (80.0-100.0); Mean Platelet Volume 7.3; Microcytosis Slight; Monocytes # (A) 0.3 k/uL (0-1.0); Monocytes % (A) 7 %; Neutrophils # (A) 2.5 k/uL (1.3-7.7); Neutrophils % (A) 58 %; Platelet Count 286 k/uL (150-450); Poikilocytosis Moderate; RDW 15.6 % (11.5-15.5); WBC 4.3 k/uL (3.8-10.6)
[2018-03-09 20:06] LABS: Albumin 3.3 g/dL (3.5-5.0); HCT 16.5 % (34.0-46.0); HGB 4.8 gm/dL (11.4-16.0); Potassium 4.4 mmol/L (3.5-5.1); Total Bilirubin 0.2 mg/dL (0.2-1.3); Total Protein 5.9 g/dL (6.3-8.2)
[2018-03-09 20:30] LABS: Large Platelets Present; Poikilocytosis (M) Present; Polychromasia Present
[2018-03-09 20:35] LABS: INR 1.1 (<1.2); Prothrombin Time 10.9 sec (9.0-12.0)
[2018-03-09 20:40] LABS: Appearance,Urine Clear (Clear); Bacteria,Urine Rare /hpf; Bilirubin,Urine Negative (Negative); Blood,Urine Negative (Negative); Color,Urine Light Yellow; Glucose,Urine (UA) Negative (Negative); Hyaline Casts,Urine 1 /lpf (0-2); Ketones,Urine Negative (Negative); Leukocyte Esterase,Urine Moderate (Negative); Mucus,Urine Rare /hpf; Nitrite,Urine Negative (Negative); PH, Urine 5.5 (5.0-8.0); Protein,Urine Negative (Negative); RBC,Urine <1 /hpf (0-5); Specific Gravity,Urine 1.012 (1.001-1.035); Urobilinogen,Urine <2.0 mg/dL (<2.0); WBC,Urine 10 /hpf (0-5)
[2018-03-09 20:46] LABS: Partial Thromboplastin Time 21.8 sec (22.0-30.0)
[2018-03-09] MEDS ORDERED: NALOXONE 0.4 MG/ML 1 ML VIAL IV PRN (21:09)
[2018-03-09] MEDS ORDERED: SODIUM CHLORIDE 0.9% 1,000 ML IV SCH (21:15)
[2018-03-09] MEDS ORDERED: ACETAMINOPHEN TAB 325 MG TAB PO PRN (23:13)
[2018-03-10 02:35] VITALS: BMI 23.3
[2018-03-10 06:43] LABS: Anisocytosis Slight; Basophils # (A) 0.1 k/uL (0-0.2); Basophils % (A) 1 %; Eosinophils # (A) 0.2 k/uL (0-0.7); Eosinophils % (A) 4 %; HCT 25.7 % (34.0-46.0); Hypochromasia Marked; Lymphocytes # (A) 1.4 k/uL (1.0-4.8); Lymphocytes % (A) 27 %; MCH 24.9 pg (25.0-35.0); MCHC 31.9 g/dL (31.0-37.0); MCV 78.2 fL (80.0-100.0); Mean Platelet Volume 8.8; Microcytosis Slight; Monocytes # (A) 0.4 k/uL (0-1.0); Monocytes % (A) 8 %; Neutrophils # (A) 2.9 k/uL (1.3-7.7); Neutrophils % (A) 55 %; Platelet Count 243 k/uL (150-450); Poikilocytosis Marked; RBC 3.28 m/uL (3.80-5.40); RDW 16.5 % (11.5-15.5); WBC 5.2 k/uL (3.8-10.6)
[2018-03-10 06:48] LABS: HGB 8.2 gm/dL (11.4-16.0)
[2018-03-10 07:15] LABS: Calcium 8.9 mg/dL (8.4-10.2); Potassium 3.9 mmol/L (3.5-5.1)
[2018-03-10] MEDS: PANTOPRAZOLE 40 MG/10 ML VIAL IVP SCH ×3 (08:04→21:43)
[2018-03-10] MEDS: SODIUM CHLORIDE 0.9% 1,000 ML IV SCH (09:26)
[2018-03-10] MEDS: LEVOTHYROXINE 125 MCG TAB PO SCH (09:48)
[2018-03-10] MEDS: METOPROLOL TARTRATE 50 MG TAB PO SCH ×3 (09:48→21:35)
[2018-03-10] MEDS: amLODIPine 5 MG TAB PO SCH (09:48)
--- NOTE | 2018-03-10 11:32 | P.CNPUL ---
History of Present Illness Consult date: 03/10/18 Requesting physician: Rolando Angel Reason for consult: other (Critical care management) Chief complaint: Black tarry stools History of present illness: This is a very pleasant 82-year-old female patient who follows with Dr. Angle as her primary care physician. She has a history of hypothyroidism, hyperlipidemia , hypertension, CVA most recently involving the left frontal cerebral artery distribution, chronic renal failure, rheumatic fever. In November 2017 she was admitted for symptoms of CVA and there was concerns regarding possible internal carotid artery dissection was subsequently transferred to [facility]. There is no definite evidence of dissection. She was discharged from there on aspirin and Plavix. She does have a history of atrial fibrillation and changed from Plavix to Eliquis 5 mg twice a day. She presented here in December 2017 with extreme weakness and hemoglobin of 3.7. She did undergo EGD at that time and there is a small sliding hiatal hernia and minimal gastritis but no active bleeding. She was subsequently discharged home again on Eliquis. She presented here to the emergency room yesterday after having a follow-up. Hemoglobin check as she had noticed black tarry stools 2 days prior. Her hemoglobin was found to be 4.7 and she was admitted to the intensive care unit for the same. She is seen in consultation today. She is currently awake and alert in no acute distress. No further dark tarry stool this morning. She is status post 3 units of packed red blood cells. Her current hemoglobin is 8.2. She is currently in normal sinus rhythm. Hemodynamically stable. No pressors required. She has 0.9 normal saline at 75 ML's per hour. No shortness of breath, weakness or chest pain or palpitations. She's afebrile. Maintaining good O2 saturations in the mid to upper 90s on room air. Review of Systems Constitutional: Reports fatigue, Reports weakness Eyes: denies blurred vision, denies decreased vision Ears: deny: decreased hearing Ears, nose, mouth and throat: Denies headache, Denies sore throat Cardiovascular: Denies chest pain, Denies shortness of breath Respiratory: Denies cough Gastrointestinal: Reports as per HPI, Reports change in bowel habits Genitourinary: Denies dysuria, Denies hematuria Musculoskeletal: Denies myalgias Integumentary: Denies pruritus, Denies rash Neurological: Denies numbness, Denies weakness Psychiatric: Denies anxiety, Denies depression Endocrine: Denies fatigue, Denies weight change Hematologic/Lymphatic: Reports as per HPI Allergic/Immunologic: Reports as per HPI Past Medical History Past Medical History: CVA/TIA, Hyperlipidemia, Hypertension, Renal Disease, Thyroid Disorder Additional Past Medical History / Comment(s): 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 Chronic renal failure, hypertension, hyperlipidemia, hypothyroidism, history of rheumatic fever, history of scarlet fever, History of Any Multi-Drug Resistant Organisms: None Reported Past Surgical History: Adenoidectomy, Tonsillectomy Additional Past Surgical History / Comment(s): part of thyroid removed Past Anesthesia/Blood Transfusion Reactions: Unable to Obtain Additional Past Anesthesia/Blood Transfusion Reaction / Comment(s): patient states she had a hard time waking up after having anesthesia Smoking Status: Never smoker - Past Family History Father Family Medical History: No Reported History Additional Family Medical History / Comment(s): parkinsons Mother History Unknown: Yes Family Medical History: Cancer, Diabetes Mellitus Additional Family Medical History / Comment(s): colon cancer Sister(s) Additional Family Medical History / Comment(s): breast cancer Medications and Allergies Home Medications Medication Instructions Recorded Confirmed Type Levothyroxine Sodium [Synthroid] 125 mcg PO DAILY 08/31/15 03/09/18 History Ergocalciferol (Vitamin D2) 50,000 unit PO Q30D 05/12/17 03/09/18 History [Vitamin D2] Apixaban [Eliquis] 2.5 mg PO BID 12/17/17 03/09/18 History Atorvastatin [Lipitor] 20 mg PO HS tab 12/28/17 03/09/18 Rx Metoprolol Tartrate [Lopressor] 50 mg PO TID tab 12/28/17 03/09/18 Rx Pantoprazole [Protonix] 40 mg PO DAILY tablet. 12/28/17 03/09/18 Rx amLODIPine [Norvasc] 5 mg PO DAILY tab 12/28/17 03/09/18 Rx Allergies Allergy/AdvReac Type Severity Reaction Status Date / Time codeine Allergy Rash/Hives Verified 03/09/18 19:27 ciprofloxacin AdvReac Diarrhea Verified 03/09/18 19:27 Physical Exam Vitals: Vital Signs Temp Pulse Pulse Resp BP BP Pulse Ox 03/10/18 10:00 61 15 153/50 97 03/10/18 09:00 98.1 F 61 19 156/54 95 03/10/18 08:00 56 L 17 161/55 97 03/10/18 07:00 59 L 22 155/65 95 03/10/18 06:00 57 L 21 139/56 96 03/10/18 05:00 98.1 F 61 20 142/52 97 03/10/18 04:00 59 L 58 L 20 148/58 142/52 97 03/10/18 03:10 63 20 148/58 97 03/10/18 03:00 98.1 F 61 64 18 147/63 148/58 95 03/10/18 02:50 63 16 147/63 97 03/10/18 02:27 63 17 97 03/10/18 00:20 98.1 F 03/09/18 22:30 141/50 03/09/18 22:25 97.5 F L 69 18 141/58 99 03/09/18 22:20 70 10 L 141/50 99 03/09/18 22:10 71 15 141/50 98 03/09/18 22:00 65 21 138/50 03/09/18 21:55 97.9 F 68 18 138/50 99 03/09/18 21:50 70 12 139/58 98 03/09/18 21:45 98.1 F 71 18 139/58 100 03/09/18 21:40 68 11 L 139/58 99 03/09/18 21:30 65 9 L 139/43 99 03/09/18 21:20 69 16 139/43 98 03/09/18 21:10 66 18 139/43 100 03/09/18 20:50 135/50 03/09/18 20:40 135/50 03/09/18 20:30 135/50 03/09/18 20:10 72 13 135/50 100 03/09/18 19:40 73 20 141/56 98 03/09/18 19:36 74 15 03/09/18 19:02 97.3 F L 79 20 130/50 100 Intake and Output 03/09/18 03/10/18 03/10/18 22:59 06:59 14:59 Intake Total 0 1855 300 Output Total 2 Balance 0 1853 300 Intake: IV 305 300 Sodium Chloride 0.9% 1, 80 000 ml @ 20 mls/hr IV . Q24H [facility] Rx#:[id number] Sodium Chloride 0.9% 1, 225 300 000 ml @ 75 mls/hr IV . [id number] [facility] Rx#:[id number] Blood Product 0 1550 Rc As-1 Unit 0 310 [id number] Rc As-1 Unit 310 [id number] Rc Pheresis As-3 Unit 310 [id number] Output: Urine 2 Other: Voiding Method Toilet Toilet Diaper Diaper # Voids 1 1 Weight 63.503 kg 63.44 kg GENERAL EXAM: Alert, active, comfortable in no apparent distress. HEAD: Normocephalic. EYES: Normal reaction of pupils, equal size. NOSE: Clear with pink turbinates. THROAT: No erythema or exudates. NECK: No masses, no JVD. CHEST: No chest wall deformity. LUNGS: Equal air entry with no crackles, wheeze, rhonchi or dullness. CVS: S1 and S2 normal with no audible murmur, regular rhythm. ABDOMEN: No hepatosplenomegaly, normal bowel sounds, no guarding or rigidity. SPINE: No scoliosis or deformity SKIN: No rashes CENTRAL NERVOUS SYSTEM: No focal deficits, tone is normal in all 4 extremities. EXTREMITIES: There is no peripheral edema. No clubbing, no cyanosis. Peripheral pulses are intact. Results - Laboratory Findings CBC and BMP: 03/10/18 06:22 03/10/18 06:22 PT/INR, D-dimer PT 10.9 sec (9.0-12.0) 03/09/18 19:30 INR 1.1 (<1.2) 03/09/18 19:30 Abnormal lab findings: Abnormal Labs 03/09/18 03/09/18 03/09/18 19:30 19:30 19:30 RBC 2.20 L Hgb 4.8 L* Hct 16.5 L* MCV 74.7 L MCH 21.7 L MCHC 29.0 L RDW 15.6 H APTT Chloride 109 H BUN 27 H Creatinine 1.18 H Glucose 134 H Total Protein 5.9 L Albumin 3.3 L Ur Leukocyte Esterase Urine WBC Urine Bacteria Urine Mucus Stool Occult Blood Crossmatch See Detail 03/09/18 03/09/18 03/09/18 19:30 19:30 20:15 RBC Hgb Hct MCV MCH MCHC RDW APTT 21.8 L Chloride BUN Creatinine Glucose Total Protein Albumin Ur Leukocyte Esterase Moderate H Urine WBC 10 H Urine Bacteria Rare H Urine Mucus Rare H Stool Occult Blood Positive H Crossmatch 03/10/18 03/10/18 06:22 06:22 RBC 3.28 L Hgb 8.2 L D Hct 25.7 L MCV 78.2 L MCH 24.9 L MCHC RDW 16.5 H APTT Chloride 113 H BUN 20 H Creatinine 1.06 H Glucose Total Protein Albumin Ur Leukocyte Esterase Urine WBC Urine Bacteria Urine Mucus Stool Occult Blood Crossmatch Assessment and Plan Assessment: Impression: #1 Acute gastrointestinal bleeding suspect secondary to Eliquis. EGD and December 2017 revealed evidence of small hiatal hernia, mild gastritis but no active bleeding. Last colonoscopy greater than 3 years ago. #2 Atrial fibrillation, anticoagulated with Eliquis, currently on hold. #3 Previous history of GI bleeding with a hemoglobin of 3.7 and December 2017. #4 History of CVA 2 with previous history involving occipital lobe and previous TPA, most recent CVA involving the left anterior cerebral artery distribution involving the left frontal lobe. Some residual right-sided weakness. #5 History of chronic renal failure. #6 History of seizure. #7 Hypothyroidism. #8 Hypertension. #9 Hyperlipidemia. #10 History of rheumatic fever. #11 History of scarlet fever. Plan: The patient was seen and evaluated by Dr. Sanchez. She is currently stable from the pulmonary and critical care standpoint. If no further active bleeding she may be transferred out of the intensive care unit later today. Continue to monitor hemoglobins. She is status post 3 units of packed red blood cells thus far. Hemoglobin 8.2. GI services has been consulted. Cardiology is been consulted regarding anticoagulation. Eliquis remains on hold for now. We will continue to follow and make further recommendations based on her clinical status. I, the cosigning physician, performed a history & physical examination of the patient. Lungs sounds are clear. Maintaining good O2 saturations in the 90s on room air. I discussed the assessment and plan of care with my nurse practitioner, Love Rodriguez. I attest to the above consultation as dictated by her. Time with Patient: Greater than 30
[2018-03-10 12:39] LABS: Anisocytosis Slight; Basophils # (A) 0.1 k/uL (0-0.2); Basophils % (A) 1 %; Eosinophils # (A) 0.2 k/uL (0-0.7); Eosinophils % (A) 3 %; HCT 27.4 % (34.0-46.0); HGB 8.4 gm/dL (11.4-16.0); Hypochromasia Marked; Lymphocytes # (A) 1.2 k/uL (1.0-4.8); Lymphocytes % (A) 21 %; MCH 24.5 pg (25.0-35.0); MCHC 30.8 g/dL (31.0-37.0); MCV 79.6 fL (80.0-100.0); Mean Platelet Volume 8.6; Monocytes # (A) 0.4 k/uL (0-1.0); Monocytes % (A) 8 %; Neutrophils # (A) 3.5 k/uL (1.3-7.7); Neutrophils % (A) 63 %; Platelet Count 265 k/uL (150-450); Poikilocytosis Marked; RBC 3.44 m/uL (3.80-5.40); WBC 5.6 k/uL (3.8-10.6)
[2018-03-10 13:05] LABS: Hemoglobin A1C 5.3 % (4.0-6.0)
--- NOTE | 2018-03-10 14:28 | P.CONS ---
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 Denies hematemesis or melena. She was hospitalized in December with symptomatic anemia hemoglobin of 3.7. She underwent EGD with no evidence of bleeding sources or peptic ulcer disease. Colonoscopy at that time was deferred secondary to stabilization of hemoglobin as well as too weak to proceed with colonoscopy. Last colonoscopy to her memory was more than 3 years ago. Admission hemoglobin 4.7. MCV 79. She received 3 units of blood current hemoglobin is 8.4. Iron indices from November were low consistent with iron deficiency anemia. Denies fever or chills. Denies abdominal pain. White count 5.6. Platelet 265. INR 1.1. Anticoagulation on hold. Review of Systems Constitutional: Denies fever, chills, sweats, weight gain, or loss. HEENT: Negative for migraines, blurred vision or loss, earaches, drainage, tinnitus, oral mucosal lesions, dysphagia, or odynophagia. CARDIAC: Negative for chest pain, arrhythmias, or palpitation. RESPIRATORY: Negative for shortness of breath, hemoptysis, cough, or sputum production. GI: See HPI for pertinent findings. : Negative for hematuria, urgency, frequency, polyuria, or dysuria. GYNc: Negative vaginal discharge. MUSCULOSKELETAL: Negative for muscle aches, swelling, arthritis, and arthralgias. NEUROLOGIC: History of stroke ENDOCRINE: Negative for thyroid problems. SKIN: Negative for rash or itching. PSYCHIATRIC: Negative history for depression and anxiety Past Medical History Past Medical History: CVA/TIA, Hyperlipidemia, Hypertension, Renal Disease, Thyroid Disorder Additional Past Medical History / Comment(s): 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 Chronic renal failure, hypertension, hyperlipidemia, hypothyroidism, history of rheumatic fever, history of scarlet fever, History of Any Multi-Drug Resistant Organisms: None Reported Past Surgical History: Adenoidectomy, Tonsillectomy Additional Past Surgical History / Comment(s): part of thyroid removed Past Anesthesia/Blood Transfusion Reactions: Unable to Obtain Additional Past Anesthesia/Blood Transfusion Reaction / Comm: patient states she had a hard time waking up after having anesthesia Smoking Status: Never smoker - Past Family History Father Family Medical History: No Reported History Additional Family Medical History / Comment(s): parkinsons Mother History Unknown: Yes Family Medical History: Cancer, Diabetes Mellitus Additional Family Medical History / Comment(s): colon cancer Sister(s) Additional Family Medical History / Comment(s): breast cancer Medications and Allergies Home Medications Medication Instructions Recorded Confirmed Type Levothyroxine Sodium [Synthroid] 125 mcg PO DAILY 08/31/15 03/09/18 History Ergocalciferol (Vitamin D2) 50,000 unit PO Q30D 05/12/17 03/09/18 History [Vitamin D2] Apixaban [Eliquis] 2.5 mg PO BID 12/17/17 03/09/18 History Atorvastatin [Lipitor] 20 mg PO HS tab 12/28/17 03/09/18 Rx Metoprolol Tartrate [Lopressor] 50 mg PO TID tab 12/28/17 03/09/18 Rx Pantoprazole [Protonix] 40 mg PO DAILY tablet. 12/28/17 03/09/18 Rx amLODIPine [Norvasc] 5 mg PO DAILY tab 12/28/17 03/09/18 Rx Allergies Allergy/AdvReac Type Severity Reaction Status Date / Time codeine Allergy Rash/Hives Verified 03/09/18 19:27 ciprofloxacin AdvReac Diarrhea Verified 03/09/18 19:27 Physical Exam Vitals: Vital Signs Temp Pulse Pulse Resp BP BP Pulse Ox 03/10/18 11:00 56 L 14 145/55 97 03/10/18 10:00 61 15 153/50 97 03/10/18 09:00 98.1 F 61 19 156/54 95 03/10/18 08:00 56 L 17 161/55 97 03/10/18 07:00 59 L 22 155/65 95 03/10/18 06:00 57 L 21 139/56 96 03/10/18 05:00 98.1 F 61 20 142/52 97 03/10/18 04:00 59 L 58 L 20 148/58 142/52 97 03/10/18 03:10 63 20 148/58 97 03/10/18 03:00 98.1 F 61 64 18 147/63 148/58 95 03/10/18 02:50 63 16 147/63 97 03/10/18 02:27 63 17 97 03/10/18 00:20 98.1 F 03/09/18 22:30 141/50 03/09/18 22:25 97.5 F L 69 18 141/58 99 03/09/18 22:20 70 10 L 141/50 99 03/09/18 22:10 71 15 141/50 98 03/09/18 22:00 65 21 138/50 03/09/18 21:55 97.9 F 68 18 138/50 99 03/09/18 21:50 70 12 139/58 98 03/09/18 21:45 98.1 F 71 18 139/58 100 03/09/18 21:40 68 11 L 139/58 99 03/09/18 21:30 65 9 L 139/43 99 03/09/18 21:20 69 16 139/43 98 03/09/18 21:10 66 18 139/43 100 03/09/18 20:50 135/50 03/09/18 20:40 135/50 03/09/18 20:30 135/50 03/09/18 20:10 72 13 135/50 100 03/09/18 19:40 73 20 141/56 98 03/09/18 19:36 74 15 03/09/18 19:02 97.3 F L 79 20 130/50 100 Intake and Output 03/09/18 03/10/18 03/10/18 22:59 06:59 14:59 Intake Total 0 1855 300 Output Total 2 Balance 0 1853 300 Intake: IV 305 300 Sodium Chloride 0.9% 1, 80 000 ml @ 20 mls/hr IV . Q24H [facility] Rx#:[id number] Sodium Chloride 0.9% 1, 225 300 000 ml @ 75 mls/hr IV . [id number] [facility] Rx#:[id number] Blood Product 0 1550 Rc As-1 Unit 0 310 [id number] Rc As-1 Unit 310 [id number] Rc Pheresis As-3 Unit 310 [id number] Output: Urine 2 Other: Voiding Method Toilet Toilet Diaper Diaper # Voids 1 1 Weight 63.503 kg 63.44 kg General appearance: The patient is alert, oriented, in no acute distress. HET: Head is normocephalic and atraumatic. Pupils are equal and reactive. Oropharynx is clear without lesions. Neck: Supple without lymphadenopathy. Trachea midline. Heart: S1 S2. Regular rate and rhythm. Lungs: No crackles or wheezes are heard. Abdomen: Soft, nontender, nondistended with bowel sounds. No peritoneal signs. No palpable organomegaly or masses. Extremities: Normal skin color and turgor. No cyanosis, rash, ulceration, clubbing, or edema. Radial and pedal pulses are 2/4 bilaterally. Neurological: No focal deficits. Strength and sensation are grossly intact. Results CBC & Chem 7: 03/10/18 12:15 03/10/18 06:22 Labs: Abnormal Lab Results - Last 24 Hours (Table) 03/09/18 03/09/18 03/09/18 Range/Units 19:30 19:30 19:30 RBC 2.20 L (3.80-5.40) m/uL Hgb 4.8 L* (11.4-16.0) gm/dL Hct 16.5 L* (34.0-46.0) % MCV 74.7 L (80.0-100.0) fL MCH 21.7 L (25.0-35.0) pg MCHC 29.0 L (31.0-37.0) g/dL RDW 15.6 H (11.5-15.5) % APTT (22.0-30.0) sec Chloride 109 H (98-107) mmol/L BUN 27 H (7-17) mg/dL Creatinine 1.18 H (0.52-1.04) mg/dL Glucose 134 H (74-99) mg/dL Total Protein 5.9 L (6.3-8.2) g/dL Albumin 3.3 L (3.5-5.0) g/dL Ur Leukocyte Esterase (Negative) Urine WBC (0-5) /hpf Urine Bacteria (None) /hpf Urine Mucus (None) /hpf Stool Occult Blood (Negative) Crossmatch See Detail 03/09/18 03/09/18 03/09/18 Range/Units 19:30 19:30 20:15 RBC (3.80-5.40) m/uL Hgb (11.4-16.0) gm/dL Hct (34.0-46.0) % MCV (80.0-100.0) fL MCH (25.0-35.0) pg MCHC (31.0-37.0) g/dL RDW (11.5-15.5) % APTT 21.8 L (22.0-30.0) sec Chloride (98-107) mmol/L BUN (7-17) mg/dL Creatinine (0.52-1.04) mg/dL Glucose (74-99) mg/dL Total Protein (6.3-8.2) g/dL Albumin (3.5-5.0) g/dL Ur Leukocyte Esterase Moderate H (Negative) Urine WBC 10 H (0-5) /hpf Urine Bacteria Rare H (None) /hpf Urine Mucus Rare H (None) /hpf Stool Occult Blood Positive H (Negative) Crossmatch 03/10/18 03/10/18 03/10/18 Range/Units 06:22 06:22 12:15 RBC 3.28 L 3.44 L (3.80-5.40) m/uL Hgb 8.2 L D 8.4 L (11.4-16.0) gm/dL Hct 25.7 L 27.4 L (34.0-46.0) % MCV 78.2 L 79.6 L (80.0-100.0) fL MCH 24.9 L 24.5 L (25.0-35.0) pg MCHC 30.8 L (31.0-37.0) g/dL RDW 16.5 H 16.0 H (11.5-15.5) % APTT (22.0-30.0) sec Chloride 113 H (98-107) mmol/L BUN 20 H (7-17) mg/dL Creatinine 1.06 H (0.52-1.04) mg/dL Glucose (74-99) mg/dL Total Protein (6.3-8.2) g/dL Albumin (3.5-5.0) g/dL Ur Leukocyte Esterase (Negative) Urine WBC (0-5) /hpf Urine Bacteria (None) /hpf Urine Mucus (None) /hpf Stool Occult Blood (Negative) Crossmatch Assessment and Plan (1) Acute GI bleeding Narrative/Plan: 82-year-old female with a history of CVA requiring TPA maintained on anticoagulation presents with severe symptomatic acute blood loss microcytic iron deficiency anemia with red colored bowel movement 1 two days ago. Patient underwent EGD evaluation in December for symptomatic anemia with no evidence of peptic ulcer disease or bleeding sources. Last colonoscopy 3 years ago. Possible colonic source possible small bowel source. Status post transfusion present hemoglobin 8.4. Current Visit: Yes Status: Acute Code(s): K92.2 - GASTROINTESTINAL HEMORRHAGE, UNSPECIFIED SNOMED Code(s): 35055345 (2) Acute blood loss anemia Current Visit: Yes Status: Acute Code(s): D62 - ACUTE POSTHEMORRHAGIC ANEMIA SNOMED Code(s): 984998633 (3) Hematochezia Current Visit: Yes Status: Acute Code(s): K92.1 - MELENA SNOMED Code(s): 623336727 (4) History of CVA (cerebrovascular accident) Current Visit: Yes Status: Acute Code(s): Z86.73 - PRSNL HX OF TIA (TIA), AND CEREB INFRC W/O RESID DEFICITS SNOMED Code(s): 418811133 Plan: 1. We'll proceed with EGD colonoscopy tomorrow possible small bowel capsule endoscopy based on colonoscopy findings. CBC monitoring. Clear liquids tonight. Protonix 40 mg twice daily. The office electrician has discussed the risks, benefits and alternative therapies for the above-mentioned procedure and for both sedation/analgesia as well as necessary blood product administration, if indicated, as they pertain to this patient. The patient has indicated understanding and acceptance of the risks and procedures discussed. Thank you for this kind referral and the opportunity to participate in the care of your patient. This consultation was discussed with Dr. Hayes. The impression and plan of care have been directed as dictated.
[2018-03-10] MEDS ORDERED: BISACODYL 5 MG TABLET.DR PO STA (14:29)
[2018-03-10] MEDS ORDERED: PEG 3350-NA SULF,BICARB,CL/KCL 4,000 ML BOTTLE PO ONE (14:29)
--- NOTE | 2018-03-10 16:00 | HP ---
HISTORY AND PHYSICAL DATE OF ADMISSION: 03/09/2018 DATE OF SERVICE: 03/10/2018 This is a 82-year-old white female who was brought to the emergency room because she was found to have extremely low hemoglobin which was 4.7. The patient is known to have multiple medical problems. She has a history of recurrent CVA in the past and also history of cerebral hemorrhage in the past. She also has a history of hypertensive cardiovascular disease, chronic atrial fibrillation, and she was recently in [facility] and also [facility] for GI bleeding. She has a history of paroxysmal atrial fibrillation which later became chronic atrial fibrillation. Because of atrial fibrillation, she has been on Eliquis, aspirin and Plavix. She was in [facility] rehab unit recently, and at that time because of the GI bleeding Eliquis was held and she was evaluated by Dr. Diaz, employee benefits manager. When she was discharged from the rehab unit she was started back on Eliquis. She also spent some time in [facility] Rehab Unit, then she was discharged from there to home with home health care. Apparently she was having some rectal bleeding on and off, but yesterday the visiting nurse checked her CBC and she was found to have a hemoglobin of 4.7. She was referred to the [facility] ER. There this was confirmed that her hemoglobin was found to be 4.8. The patient was also complaining of extreme tiredness. She denied any chest pain, but she had some shortness of breath on exertion. In the ER her CBC showed a WBC count of 4.3, hemoglobin 4.8, platelet count 286,000. PT and INR were within normal limits. Sodium was 139, potassium 4.4, and liver functions were within normal limits. Patient received multiple transfusions and was admitted to ICU. PAST MEDICAL HISTORY: Past medical history, as mentioned before, reveals that she has had recurrent CVA/TIAs and has had intracranial hemorrhage in the past. 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 ALLERGIES: CODEINE and CIPRO. HOME MEDICATIONS: Patient's home medications include: 1. Norvasc 5 mg p.o. daily. 2. Protonix 40 mg p.o. daily. 3. Lopressor 50 mg p.o. t.i.d. 4. Synthroid 125 mcg p.o. daily. 5. Vitamin D 50,000 units p.o. q.30 days. 6. Lipitor 20 mg p.o. daily. 7. Eliquis 2.5 mg p.o. b.i.d. She does not smoke and she does not drink alcohol. FAMILY HISTORY: Positive for heart disease and arthritis. REVIEW OF SYSTEMS: The patient denies any headaches. She feels extremely tired all the time. She denies any chest pain. She has shortness of breath on exertion. She has no abdominal pain. She has no polyuria or dysuria. She has some rectal bleeding on and off. She has no neurological symptoms other than generalized weakness. PHYSICAL EXAMINATION: Physical examination reveals an 82-year-old white female. She has received multiple transfusions since she was admitted and she appears pale but alert and oriented. There is no jaundice. There is no generalized lymphadenopathy. There are no petechiae or bruises. Temperature 97.3, pulse 78 per minute, blood pressure 130/56, oxygen saturation 100% and respirations 20 per minute. EXAMINATION OF THE ENT: Negative. Neck is supple. There is no jugular venous distention. There is no goiter. There is no carotid bruit. Heart is in atrial fibrillation with a controlled ventricular rate. LUNGS: Clear to auscultation and percussion. ABDOMEN: Soft and nontender. There is no mass palpable. Examination of the lower extremities reveals no pitting edema. Neurologic examination does not reveal any localizing signs. IMPRESSION: 1. Severe acute blood loss anemia. 2. Chronic atrial fibrillation with controlled ventricular rate. 3. Hypertensive cardiovascular disease. 4. Acute gastrointestinal bleeding. 5. Hypothyroidism. 6. Chronic renal failure. PLAN: Patient will be admitted to the ICU. Dr. Sanchez will see the patient in consultation for ICU management. We will also get a cardiology consultation, as they have been following the patient for her atrial fibrillation and other cardiac problems. Prognosis is guarded. We also requested employee benefits manager Dr. Paul Diaz to see the patient in consultation. The diagnosis, prognosis and therapeutic plans were discussed in detail with the patient today. MMODL / IJN: [id number] /
[2018-03-10 20:41] LABS: Anisocytosis Slight; Basophils # (A) 0.1 k/uL (0-0.2); Basophils % (A) 1 %; Eosinophils # (A) 0.3 k/uL (0-0.7); Eosinophils % (A) 5 %; HCT 32.2 % (34.0-46.0); HGB 9.6 gm/dL (11.4-16.0); Hypochromasia Marked; Lymphocytes # (A) 1.3 k/uL (1.0-4.8); Lymphocytes % (A) 22 %; MCHC 29.8 g/dL (31.0-37.0); MCV 80.6 fL (80.0-100.0); Mean Platelet Volume 8.4; Monocytes # (A) 0.5 k/uL (0-1.0); Monocytes % (A) 9 %; Neutrophils # (A) 3.7 k/uL (1.3-7.7); Neutrophils % (A) 61 %; Platelet Count 335 k/uL (150-450); Poikilocytosis Marked; RDW 16.1 % (11.5-15.5); WBC 6.2 k/uL (3.8-10.6)
[2018-03-10] MEDS: ATORVASTATIN 20 MG TAB PO SCH (21:35)
[2018-03-11] MEDS: SODIUM CHLORIDE 0.9% 1,000 ML IV SCH ×3 (01:22→21:07)
[2018-03-11 04:06] LABS: Anisocytosis Slight; Basophils % (A) 1 %; Eosinophils # (A) 0.2 k/uL (0-0.7); Eosinophils % (A) 5 %; HCT 25.8 % (34.0-46.0); Hypochromasia Marked; Lymphocytes # (A) 1.2 k/uL (1.0-4.8); Lymphocytes % (A) 27 %; MCH 24.1 pg (25.0-35.0); MCHC 30.8 g/dL (31.0-37.0); Mean Platelet Volume 8.9; Microcytosis Slight; Monocytes # (A) 0.4 k/uL (0-1.0); Monocytes % (A) 9 %; Neutrophils # (A) 2.4 k/uL (1.3-7.7); Neutrophils % (A) 54 %; Platelet Count 238 k/uL (150-450); Poikilocytosis Marked; RBC 3.31 m/uL (3.80-5.40); RDW 16.9 % (11.5-15.5); WBC 4.5 k/uL (3.8-10.6)
[2018-03-11 04:21] LABS: Calcium 8.9 mg/dL (8.4-10.2); Magnesium 1.9 mg/dL (1.6-2.3); Phosphorus 3.2 mg/dL (2.5-4.5); Potassium 3.4 mmol/L (3.5-5.1)
[2018-03-11] MEDS: LEVOTHYROXINE 125 MCG TAB PO SCH (06:14)
[2018-03-11] MEDS: METOPROLOL TARTRATE 50 MG TAB PO SCH ×3 (12:06→21:07)
[2018-03-11] MEDS: amLODIPine 5 MG TAB PO SCH (12:06)
[2018-03-11] MEDS: PANTOPRAZOLE 40 MG/10 ML VIAL IVP SCH ×2 (12:06→21:06)
--- NOTE | 2018-03-11 12:56 | P.PN ---
Subjective Progress Note Date: 03/11/18 Principal diagnosis: Acute gastrointestinal bleeding, likely secondary to Eliquis This is a very pleasant 82-year-old female patient who follows with Dr. Angel as her primary care physician. She has a history of hypothyroidism, hyperlipidemia , hypertension, CVA most recently involving the left frontal cerebral artery distribution, chronic renal failure, rheumatic fever. In November 2017 she was admitted for symptoms of CVA and there was concerns regarding possible internal carotid artery dissection was subsequently transferred to [facility]. There is no definite evidence of dissection. She was discharged from there on aspirin and Plavix. She does have a history of atrial fibrillation and changed from Plavix to Eliquis 5 mg twice a day. She presented here in December 2017 with extreme weakness and hemoglobin of 3.7. She did undergo EGD at that time and there is a small sliding hiatal hernia and minimal gastritis but no active bleeding. She was subsequently discharged home again on Eliquis. She presented here to the emergency room yesterday after having a follow-up. Hemoglobin check as she had noticed black tarry stools 2 days prior. Her hemoglobin was found to be 4.7 and she was admitted to the intensive care unit for the same. She is seen in consultation today. She is currently awake and alert in no acute distress. No further dark tarry stool this morning. She is status post 3 units of packed red blood cells. Her current hemoglobin is 8.2. She is currently in normal sinus rhythm. Hemodynamically stable. No pressors required. She has 0.9 normal saline at 75 ML's per hour. No shortness of breath, weakness or chest pain or palpitations. She's afebrile. Maintaining good O2 saturations in the mid to upper 90s on room air. On 03/11/2018 patient seen in follow-up on medical surgical floor. He is awake and alert, oriented 3, denies any shortness of breath or chest pain, no abdominal pain, no nausea or vomiting, her last bowel movement was yesterday, and she described it as dark in color. Patient is status post transfusion with 3 units of packed red blood cells, today's hemoglobin is 8.0. Her Eliquis remains on hold, patient remains in atrial fibrillation, with a controlled rate. She is scheduled for EGD and colonoscopy today. Vitals are stable, room air pulse ox is 98%. Objective - Vital Signs Vital signs: Vital Signs Temp 98.2 F 03/11/18 07:00 Pulse 78 03/11/18 07:00 Resp 18 03/11/18 07:00 BP 122/78 03/11/18 07:00 Pulse Ox 98 03/11/18 07:00 Intake & Output 03/10/18 03/11/18 03/11/18 18:59 06:59 18:59 Intake Total 600 4050 Balance 600 4050 Intake: IV 600 600 Sodium Chloride 0.9% 1, 600 600 000 ml @ 75 mls/hr IV . [id number] [facility] Rx#:[id number] Intake, IV Titration 450 Amount Sodium Chloride 0.9% 1, 450 000 ml @ 75 mls/hr IV . [id number] [facility] Rx#:[id number] Oral 3000 Other: Voiding Method Toilet Bedside Commode Bedside Commode Diaper Incontinent # Voids 3 2 # Bowel Movements 2 - Exam GENERAL EXAM: Alert, active, comfortable in no apparent distress. HEAD: Normocephalic. EYES: Normal reaction of pupils, equal size. NOSE: Clear with pink turbinates. THROAT: No erythema or exudates. NECK: No masses, no JVD. CHEST: No chest wall deformity. LUNGS: Equal air entry with no crackles, wheeze, rhonchi or dullness. CVS: S1 and S2 normal with no audible murmur, regular rhythm. ABDOMEN: No hepatosplenomegaly, normal bowel sounds, no guarding or rigidity. SPINE: No scoliosis or deformity SKIN: No rashes CENTRAL NERVOUS SYSTEM: No focal deficits, tone is normal in all 4 extremities. EXTREMITIES: There is no peripheral edema. No clubbing, no cyanosis. Peripheral pulses are intact. - Labs CBC & Chem 7: 03/11/18 03:25 03/11/18 03:25 Labs: Abnormal Lab Results - Last 24 Hours (Table) 03/10/18 03/11/18 03/11/18 Range/Units 19:59 03:25 03:25 RBC 3.31 L (3.80-5.40) m/uL Hgb 9.6 L 8.0 L D (11.4-16.0) gm/dL Hct 32.2 L 25.8 L (34.0-46.0) % MCV 78.0 L (80.0-100.0) fL MCH 24.0 L 24.1 L (25.0-35.0) pg MCHC 29.8 L 30.8 L (31.0-37.0) g/dL RDW 16.1 H 16.9 H (11.5-15.5) % Potassium 3.4 L (3.5-5.1) mmol/L Chloride 111 H (98-107) mmol/L Assessment and Plan Plan: #1 Acute gastrointestinal bleeding suspect secondary to Eliquis. EGD and December 2017 revealed evidence of small hiatal hernia, mild gastritis but no active bleeding. Last colonoscopy greater than 3 years ago. #2 Atrial fibrillation, anticoagulated with Eliquis, currently on hold. #3 Previous history of GI bleeding with a hemoglobin of 3.7 and December 2017. #4 History of CVA 2 with previous history involving occipital lobe and previous TPA, most recent CVA involving the left anterior cerebral artery distribution involving the left frontal lobe. Some residual right-sided weakness. #5 History of chronic renal failure. #6 History of seizure. #7 Hypothyroidism. #8 Hypertension. #9 Hyperlipidemia. #10 History of rheumatic fever. #11 History of scarlet fever. Plan: Eliquis remains on hold, no further bleeding in last 24 hours, hemoglobin is 8.0 , patient is status post transfusion with 3 units of packed red blood cells, denies any shortness of breath or chest pain, patient scheduled for EGD and colonoscopy today. No active pulmonary or critical care issues, we will follow the patient on as-needed basis. I performed a history & physical examination of the patient and discussed their management with my nurse practitioner, China Haynes. I reviewed the nurse practitioner's note and agree with the documented findings and plan of care. Lung sounds are few bibasilar crackles. The findings and the impression was discussed with the patient. I attest to the documentation by the nurse practitioner. Time with Patient: Less than 30
--- NOTE | 2018-03-11 15:10 | PN ---
PROGRESS NOTE DATE OF SERVICE: 03/11/2018 This is an 82-year-old male white female who has multiple chronic medical problems and the patient was brought to the emergency room because of very severe tiredness and weakness and her hemoglobin checked as an outpatient showed to be extremely low. It was 4.7, and the patient was referred to the emergency room and in the ER, her hemoglobin still was low around 4.7, and patient has a history of chronic atrial fibrillation and she has been on Eliquis and also she has had recurrent GI bleeding in the past and she also has had a CVA in the past and about 6-8 weeks ago patient was in the hospital with severe GI bleeding and she received multiple transfusions and she also had severe multiple episodes of paroxysmal atrial fibrillation at that time and this was converted to chronic atrial fibrillation and at that time she also had a TIA and extreme weakness and she was in [facility] rehab unit and following that, she was placed on rehab unit in [facility] and she was discharged home from there but while she was in the home, she was getting physical therapy, but she was progressively getting worse. In the sense, she was extremely weak and tired and the visiting nurse checked the blood and that showed a hemoglobin of 4.7, and she was brought to the emergency room. In the ER, patient was evaluated and she received multiple transfusions and she was admitted to ICU for further evaluation and treatment. She was seen by Dr. Sanchez in the ICU for ICU management and she was also seen by Dr. Diaz in consultation. Patient was scheduled to have upper and lower endoscopy, which she is going to have this morning. Otherwise, her hemoglobin is now staying around 8 and her vital signs are stable and she apparently does not have any acute cardio or respiratory problems. Patient was also seen by [facility] in consultation of all her cardiac problems. The overall prognosis is guarded. The diagnosis, prognosis and therapeutic plans were discussed in detail with the patient today and the patient is going to have an upper and lower endoscopy by Dr. Diaz today. MMODL / IJN: [id number] /
[2018-03-11] MEDS ORDERED: PROPOFOL 10 MG/ML 20 ML VIAL IV ONE (17:24)
[2018-03-11] MEDS ORDERED: LIDOCAINE 1% INJ 10MG/ML (20 ML MDV) ONE (17:24)
[2018-03-11] MEDS ORDERED: IV FLUID CONTINUATION 250 ML IV ONE (17:26)
--- NOTE | 2018-03-11 18:50 | P.PCN ---
Date of Procedure: 03/11/18 Description of Procedure: Brief history: Patient is a pleasant 82-year-old female who presents to the hospital with complaints of bright red blood per rectum. 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 She was seen in January with concerns of a GI bleed and EGD was done without a source of bleeding noted. On this admission she reported painless bright red blood per rectum. Eliquis was held for approximately 2 days prior to the procedure. Procedure performed: Esophagogastroduodenoscopy Colonoscopy with tattoo Estimated blood loss: Minimal. Preoperative diagnosis: Hematochezia, anemia Anesthesia: [facility] Procedure: After informed consent was obtained from the patient was brought into the endoscopy unit and IV sedation was administered by anesthesia under continuous monitoring. Initially upper endoscopy was done. The Olympus GF 190 video endoscope was inserted inserted into the mouth and esophagus intubated without any difficulty and was gradually advanced into the stomach and duodenum and carefully examined. The bulb and second part of the duodenum appeared normal. The scope was then withdrawn into the stomach adequately insufflated with air and upon careful examination the antrum and body, cardia and fundus appeared normal. There were multiple diminutive fundic gland polyps which were not biopsied given presentation of GI bleed. The scope was then withdrawn into the esophagus. The patient had a medium-sized hiatal hernia. The GE junction was located at 37 cm to the incisors. It appeared regular with no erythema erosions or ulcerations. Rest of the esophagus appeared normal. Patient tolerated the procedure well. At this time the patient continued to remain sedation. Initial digital rectal examination was normal. Olympus CF 190 video colonoscope was then inserted into the rectum and gradually advanced to the cecum without any difficulty. Careful examination was performed as the scope was gradually being withdrawn. The prep was good. In the cecum a large mass was noted. The mass took up approximately a third of the lumen and was partially obstructing. No active bleeding was noted. Multiple biopsies were taken from the mass which appeared malignant in nature. 3 mL of ink were injected proximally, distally into the side of the mass. 2 other polyps were also noted in the area of the hepatic flexure, one which was flat and larger than a centimeter in size. A third polyp was noted in the mid to distal transverse colon, also measuring greater than a centimeter in size 1 mL of ink was used to tattoo the area of the polyp. Diverticulosis was noted in the sigmoid and descending colon. Retroflexion was performed in the rectum, the patient had mild internal hemorrhoids and no findings were noted. Patient tolerated the procedure well. Impression: 1. Hiatal hernia and fundic gland polyps. 2. Large colonic mass in the cecum, biopsied and tattooed. 3. Polyps also noted at the hepatic flexure and in the transverse colon with a tattoo placed in the transverse colon at the most distal polyp. Recommendations: Findings of this examination were discussed with the patient as well as her family. Await pathology. Patient will likely need a surgical consult as see polyp appeared malignant in nature. Okay for clear liquid diet today. Monitor hemoglobin and transfuse as needed. Continue to hold anticoagulation.
[2018-03-11] MEDS: ATORVASTATIN 20 MG TAB PO SCH (21:06)
[2018-03-12] MEDS: LEVOTHYROXINE 125 MCG TAB PO SCH (06:10)
[2018-03-12 08:02] LABS: Anisocytosis Slight; Basophils % (A) 0 %; Eosinophils # (A) 0.1 k/uL (0-0.7); Eosinophils % (A) 1 %; HCT 24.9 % (34.0-46.0); HGB 7.6 gm/dL (11.4-16.0); Hypochromasia Marked; Lymphocytes # (A) 1.1 k/uL (1.0-4.8); Lymphocytes % (A) 10 %; MCH 23.9 pg (25.0-35.0); MCHC 30.6 g/dL (31.0-37.0); MCV 78.3 fL (80.0-100.0); Mean Platelet Volume 9.2; Microcytosis Slight; Monocytes # (A) 0.5 k/uL (0-1.0); Monocytes % (A) 5 %; Neutrophils % (A) 83 %; Platelet Count 270 k/uL (150-450); Poikilocytosis Marked; RBC 3.18 m/uL (3.80-5.40); RDW 18.1 % (11.5-15.5); WBC 10.8 k/uL (3.8-10.6)
[2018-03-12 08:35] LABS: Calcium 8.3 mg/dL (8.4-10.2); Magnesium 1.7 mg/dL (1.6-2.3); Potassium 3.3 mmol/L (3.5-5.1)
[2018-03-12] MEDS: PANTOPRAZOLE 40 MG/10 ML VIAL IVP SCH ×2 (09:50→20:06)
[2018-03-12] MEDS: METOPROLOL TARTRATE 50 MG TAB PO SCH ×3 (09:50→20:06)
[2018-03-12] MEDS: amLODIPine 5 MG TAB PO SCH (09:50)
[2018-03-12] MEDS: SODIUM CHLORIDE 0.9% 1,000 ML IV SCH (16:30)
--- NOTE | 2018-03-12 17:41 | PN ---
PROGRESS NOTE DATE OF SERVICE: 03/12/2018 She is a FULL CODE. Her height is 5 feet 5 inches, weight 63.44 kg. Her BSA 1.70 m2, BMI 23.3 kg/m2. She is ALLERGIC TO CODEINE AND CIPROFLOXACIN. The patient, who is a patient of Dr. Rolando Angel the attending, has been seen and followed. On the WednesdayMarch 11 underwent a colonoscopy and they found that she had a mass in the cecum which clarified the issue of the bleeding that she presented with. The patient presented on March 09 with the hemoglobin of 4.8 and hematocrit 16.5, and platelet count was 286. The patient at that time was normal ProTime 10.9 and INR 1.1 and PTT 21.8. She was prior to that on anticoagulant, which was discontinued. That is what her ProTime is normal on that day of admission. Also on the day of admission, her creatinine was 1.18 and estimated glomerular filtration rate for non- was 44. Subsequently, the patient hydrated and Dr. Hayes, the horticulture/floriculture teacher, did a colonoscopy and found a cecal mass. Subsequently, she had repeated her hemoglobin and today her hemoglobin is estimated as 7.6 with a white count 10.8. However, the patient already had received 3 units of packed RBCs. Currently her hematocrit 24.9 and her electrolytes, she had a potassium low at 3.3 and will be supplemented by protocol. Estimated glomerular filtration rate is currently 52 for non-. Her blood sugar is 88, and calcium 8.3. Yesterday was 8.9, but she at that time was n.p.o. for the colonoscopy. Her magnesium 1.7. She had marketed hypochromasia and associated with a macrocytosis and anisocytosis and poikilocytosis. The patient on examination, her vital signs indicating that her blood pressure is today 111/61, and mean of 77, pulse ox 96 percent on room air. Her temperature 98.1. The pulse rate is 66 and regular. On examination, patient is pale still and conscious, alert and oriented. She understand that she had a mass in the cecum and it was cancerous. She stated that her surgeon is Dr. Rose and will be consulting Dr. Rose. On examination, neck was supple. No JVD. No thyromegaly. She had a scar with a history of thyroidectomy many years ago. The chest is clear to auscultation and percussion. No wheezes, no rhonchi. The heart PMI in the 5th intercostal space and normal S1, S2 and no gallop. The abdomen is tender, diffuse. However, she had the mass and also she had 2 spots marked and she had a colonoscopy with tattooing the spots that found she had a hiatal hernia with the fundic gland polyp and she has also large colonic mass in the cecum, biopsy and tattoo. She had a polyp also noted in the hepatic flexure and transverse colon and tattooed in this place the transverse colon as well at the most distal colon. The patient is comfortable at this time. No other complaints and otherwise, she is stable hemodynamically and with the underlying other medical problems including the hypothyroidism and hypertension and she is on beta chung. She had a GERD disease as wells and pantoprazole. We will continue the current treatment and will consult with the assessment as mentioned above: 1. Underlying large colonic mass in the cecum and biopsied and tattooed. 2. Polyps in the hepatic flexure and transverse colon and tattooed as well. 3. She had a hiatal hernia. 4. She had severe anemia with the hemoglobin at this time 7.6. PLAN: Repeat the hemoglobin and hematocrit, CBC tomorrow to see if she needs any further blood transfusion and consultation with the surgeon for further planning of surgical intervention. MMODL / IJN: [id number] /
[2018-03-12] MEDS: ATORVASTATIN 20 MG TAB PO SCH (20:06)
[2018-03-13] MEDS: SODIUM CHLORIDE 0.9% 1,000 ML IV SCH ×2 (04:42→14:50)
[2018-03-13] MEDS: LEVOTHYROXINE 125 MCG TAB PO SCH (05:19)
[2018-03-13 07:55] LABS: Anisocytosis Slight; Basophils % (A) 1 %; Eosinophils # (A) 0.2 k/uL (0-0.7); Eosinophils % (A) 4 %; HCT 26.2 % (34.0-46.0); HGB 7.9 gm/dL (11.4-16.0); Hypochromasia Marked; Lymphocytes % (A) 21 %; MCH 24.8 pg (25.0-35.0); MCHC 30.4 g/dL (31.0-37.0); MCV 81.6 fL (80.0-100.0); Mean Platelet Volume 8.3; Monocytes # (A) 0.3 k/uL (0-1.0); Monocytes % (A) 7 %; Neutrophils # (A) 3.2 k/uL (1.3-7.7); Neutrophils % (A) 65 %; Platelet Count 257 k/uL (150-450); Poikilocytosis Marked; RBC 3.21 m/uL (3.80-5.40); RDW 18.1 % (11.5-15.5); WBC 4.9 k/uL (3.8-10.6)
[2018-03-13 08:09] LABS: Calcium 8.3 mg/dL (8.4-10.2); Magnesium 1.8 mg/dL (1.6-2.3); Phosphorus 3.4 mg/dL (2.5-4.5); Potassium 3.4 mmol/L (3.5-5.1)
[2018-03-13] MEDS: METOPROLOL TARTRATE 50 MG TAB PO SCH ×3 (09:36→20:55)
[2018-03-13] MEDS: amLODIPine 5 MG TAB PO SCH (09:36)
[2018-03-13] MEDS: PANTOPRAZOLE 40 MG/10 ML VIAL IVP SCH ×2 (09:37→20:54)
--- NOTE | 2018-03-13 11:29 | P.GSCN ---
History of Present Illness Consult date: 03/13/18 History of present illness: 82-year-old female presented initially to the hospital secondary to lethargy and a hemoglobin found at 4.7. She has been transfused and on workup has had a upper and lower endoscopy. On lower endoscopy, the patient was found to have a cecal mass that was tattooed along with polyps in the hepatic flexure and transverse colon. The cecal mass appears to be the cause of the GI bleed. Biopsies were taken and are pending. The patient states that she had had a colonoscopy in the past, however does not remember how long ago that was. Currently, the patient is resting comfortably with no significant acute symptoms. She does have a chronic medical history including chronic atrial fibrillation and history of CVA with cerebral hemorrhage. She currently denies any abdominal pain. She denies ever having any abdominal surgeries. She has no additional complaints at this time. Review of Systems All systems: negative Past Medical History Past Medical History: CVA/TIA, Hyperlipidemia, Hypertension, Renal Disease, Thyroid Disorder Additional Past Medical History / Comment(s): 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 Chronic renal failure, hypertension, hyperlipidemia, hypothyroidism, history of rheumatic fever, history of scarlet fever, History of Any Multi-Drug Resistant Organisms: None Reported Past Surgical History: Adenoidectomy, Tonsillectomy Additional Past Surgical History / Comment(s): part of thyroid removed Past Anesthesia/Blood Transfusion Reactions: Unable to Obtain Additional Past Anesthesia/Blood Transfusion Reaction / Comm: patient states she had a hard time waking up after having anesthesia Smoking Status: Never smoker - Past Family History Father Family Medical History: No Reported History Additional Family Medical History / Comment(s): parkinsons Mother History Unknown: Yes Family Medical History: Cancer, Diabetes Mellitus Additional Family Medical History / Comment(s): colon cancer Sister(s) Additional Family Medical History / Comment(s): breast cancer Medications and Allergies Home Medications Medication Instructions Recorded Confirmed Type Levothyroxine Sodium [Synthroid] 125 mcg PO DAILY 08/31/15 03/09/18 History Ergocalciferol (Vitamin D2) 50,000 unit PO Q30D 05/12/17 03/09/18 History [Vitamin D2] Apixaban [Eliquis] 2.5 mg PO BID 12/17/17 03/09/18 History Atorvastatin [Lipitor] 20 mg PO HS tab 12/28/17 03/09/18 Rx Metoprolol Tartrate [Lopressor] 50 mg PO TID tab 12/28/17 03/09/18 Rx Pantoprazole [Protonix] 40 mg PO DAILY tablet. 12/28/17 03/09/18 Rx amLODIPine [Norvasc] 5 mg PO DAILY tab 12/28/17 03/09/18 Rx Allergies Allergy/AdvReac Type Severity Reaction Status Date / Time codeine Allergy Rash/Hives Verified 03/09/18 19:27 ciprofloxacin AdvReac Diarrhea Verified 03/09/18 19:27 Surgical - Exam Osteopathic Statement: *. No significant issues noted on an osteopathic structural exam other than those noted in the History and Physical/Consult. Vital Signs Temp Pulse Resp BP Pulse Ox 97.3 F L 79 20 130/50 100 03/09/18 19:02 03/09/18 19:02 03/09/18 19:02 03/09/18 19:02 03/09/18 19:02 - General no distress - Eyes PERRL, normal ocular movement - ENT normal mucosa, decreased hearing - Neck trachea midline - Respiratory No difficulty with respiration - Abdomen Soft, nontender, nondistended, no rebound, no guarding - Psychiatric oriented to time, oriented to person, oriented to place Results - Labs 03/13/18 06:57 03/13/18 06:57 Abnormal Lab Results - Last 24 Hours (Table) 03/13/18 03/13/18 Range/Units 06:57 06:57 RBC 3.21 L (3.80-5.40) m/uL Hgb 7.9 L (11.4-16.0) gm/dL Hct 26.2 L (34.0-46.0) % MCH 24.8 L (25.0-35.0) pg MCHC 30.4 L (31.0-37.0) g/dL RDW 18.1 H (11.5-15.5) % Potassium 3.4 L (3.5-5.1) mmol/L Chloride 112 H (98-107) mmol/L Calcium 8.3 L (8.4-10.2) mg/dL Diabetes panel 03/13/18 Range/Units 06:57 Sodium 141 (137-145) mmol/L Potassium 3.4 L (3.5-5.1) mmol/L Chloride 112 H (98-107) mmol/L Carbon Dioxide 25 (22-30) mmol/L BUN 10 (7-17) mg/dL Creatinine 0.98 (0.52-1.04) mg/dL Glucose 88 (74-99) mg/dL Calcium 8.3 L (8.4-10.2) mg/dL Calcium panel 03/13/18 Range/Units 06:57 Calcium 8.3 L (8.4-10.2) mg/dL Phosphorus 3.4 (2.5-4.5) mg/dL Pituitary panel 03/13/18 Range/Units 06:57 Sodium 141 (137-145) mmol/L Potassium 3.4 L (3.5-5.1) mmol/L Chloride 112 H (98-107) mmol/L Carbon Dioxide 25 (22-30) mmol/L BUN 10 (7-17) mg/dL Creatinine 0.98 (0.52-1.04) mg/dL Glucose 88 (74-99) mg/dL Calcium 8.3 L (8.4-10.2) mg/dL Adrenal panel 03/13/18 Range/Units 06:57 Sodium 141 (137-145) mmol/L Potassium 3.4 L (3.5-5.1) mmol/L Chloride 112 H (98-107) mmol/L Carbon Dioxide 25 (22-30) mmol/L BUN 10 (7-17) mg/dL Creatinine 0.98 (0.52-1.04) mg/dL Glucose 88 (74-99) mg/dL Calcium 8.3 L (8.4-10.2) mg/dL Assessment and Plan (1) Colonic mass Narrative/Plan: 82-year-old female with cecal mass - This mass appears to be the cause of patient's continued low hemoglobin and GI bleed, secondary to this and possibility of cancer, recommendation is for colectomy - I did discuss the case with the oracle database developer, there do appear to be additional polyps in the hepatic flexure proximal transverse colon, due to this , we will plan for an open procedure for evaluation of all sites that were tattooed - The patient already has been prepped for colonoscopy, continue clear liquid diet for now. We will add antibiotics for Sierra prep. - I will obtain a chest x-ray and CT of the abdomen and pelvis for metastatic workup prior to surgery - Plan for surgery tomorrow pending CT and x-ray results. Current Visit: Yes Status: Acute Code(s): K63.9 - DISEASE OF INTESTINE, UNSPECIFIED SNOMED Code(s): 994695278
[2018-03-13] MEDS: IOPAMIDOL-300 CONTRAST 30 ML VIAL (ORAL USE) PO PRN ×2 (12:03→12:56)
[2018-03-13] MEDS ORDERED: NEOMYCIN 500 MG TAB PO ONE ×3 (13:00→22:00)
--- NOTE | 2018-03-13 14:04 | XR ---
EXAMINATION TYPE: XR chest 2V DATE OF EXAM: 03/13/2018 HISTORY: met workup. REFERENCE: Previous study dated 12/21/2017. FINDINGS: The heart is mildly prominent. The lungs are clear. Pleural spaces are clear. IMPRESSION: MILD CARDIOMEGALY.
--- NOTE | 2018-03-13 14:11 | CT ---
EXAMINATION TYPE: CT abdomen pelvis w con DATE OF EXAM: 03/13/2018 REFERENCE: NONE HISTORY: met workup, cecal mass HISTORY: Cecal Mass REFERENCE: NONE CT DLP: 682.7 mGy Automated exposure control for dose reduction was used. TECHNIQUE: Helical acquisition through the abdomen and pelvis was obtained following the oral ingesti on of with Oral Contrast and following intravenous administration of 100 mL of Isovue 300. The data w as reformatted in axial, coronal and sagittal projections. FINDINGS: There are tiny, bilateral pleural effusions. The lungs are clear. There is marked elevation of the right hemidiaphragm. There are 2 low attenuating lesions in the dome of the liver. A third lesion is noted in the posterio r aspect of the posterior segment of the right lobe of the liver. There are multiple faceted gallston es. The spleen is unremarkable. Both adrenal glands are normal. There is a 1 cm low attenuating lesion in the mid polar region of the left kidney. There is a slightl y smaller lesion in the mid polar region of the right kidney. There are extrarenal pelves bilaterally . The pancreas is not well-visualized. There is no significant retroperitoneal, iliac or inguinal adenopathy. The bladder is unremarkable. The rectum is markedly dilated and there is a large air-fluid level within it. There is a 4.7 x 4.0 x 2.2 cm cecal mass. This appears to extend beyond the wall of the cecum. There is no evidence of smal l bowel obstruction. The appendix is unremarkable. No free fluid and no free air is seen. There is degenerative disc disease, hypertrophic spondylosis and facet arthropathy within the spine. No bony destructive lesion is seen. IMPRESSION: 1. LARGE CECAL MASS WHICH APPEARS TO EXTEND BEYOND THE CONFINES OF THE CECUM. 2. TINY, BILATERAL PLEURAL EFFUSIONS. 3. LOW ATTENUATING LESIONS IN BOTH THE KIDNEYS AND LIVER ARE LIKELY CYSTS. THIS COULD BE CONFIRMED WI TH ULTRASOUND. 4. FAIRLY MARKED DISTENTION OF THE RECTUM. 5. DEGENERATIVE CHANGES WITHIN THE SPINE.
--- NOTE | 2018-03-13 14:21 | P.PN ---
Subjective Progress Note Date: 03/13/18 Principal diagnosis: #1 anemia secondary to blood loss. #2 cecal mass as well as nodular density in the hepatic flexure and transverse colon biopsy was obtained, appears to be clinically tumor mass. This is dictation on progress note date of service 03/13/[address] Milady Deal [facility]. Patient seen and evaluated [id number]. Her temperature today 98.4 pulse 67 respiratory rate 16 and blood pressure 159/ 69 with the mean 99, earlier her blood pressure was 127/60 and mean arterial pressure is 82. Apparently these blood pressure was taken prior to prior to the computed tomography scan of the abdomen and the survey for metastasis. Patient seen today her laboratories was indicating that her white count is 4.9 hemoglobin 7.9 hematocrit 26.2 and the platelet count 257. The chemistry indicating that sodium 141 potassium 3.4 and that will be supplemented with potassium protocol ordered. Her chloride 112 carbon dioxide 25 BUN of 10 creatinine 0.98 and her blood sugar was 88. On the physical exam: There is pallor of the lips and hands however improved from the time admitted which was 4.7 hemoglobin and she was transfused 3 units packed RBCs. HEENT was negative. Neck was supple no JVD no thyromegaly no lymph adenopathy trachea midline. Chest was clear to auscultation and percussion. And the heart was regular sinus rhythm. Abdomen soft vague discomfort with the underlying cecal mass with the recent colonoscopy. Extremities: No edema and positive pulses. No neurological abnormalities she can stand and able to walk but she is weak. Assessment: #1 anemia secondary to blood loss. #2 cecal mass by colonoscopy, and the hepatic flexure nodule and transverse colon nodule. #3 hypertension. #4 coronary disease. #5 hypothyroidism. Full code Plan: I did discuss it today with Dr. Antonio as well as Dr. Christa jackson gastroenterology. Dr. Antonio will evaluate today and tomorrow probable taken to surgical suite with the open surgery. Discussed the need for blood transfusion, he will arrange for packed RBCs on hold in case of needed during the surgery. Patient stable for surgical intervention. Dr. Angel will follow the patient tomorrow Objective - Vital Signs Vital signs: Vital Signs Temp 98.3 F 03/13/18 07:43 Pulse 67 03/13/18 07:43 Resp 16 03/13/18 07:43 BP 159/69 03/13/18 07:43 Pulse Ox 97 03/13/18 07:43 Intake & Output 03/12/18 03/13/18 03/13/18 19:59 06:59 18:59 Intake Total 620 Balance 620 Intake: Intake, IV Titration Amount Sodium Chloride 0.9% 1, 000 ml @ 75 mls/hr IV . [id number] [facility] Rx#:[id number] Oral 620 Other: Voiding Method # Voids # Bowel Movements - Labs CBC & Chem 7: 03/13/18 06:57 03/13/18 06:57 Labs: Abnormal Lab Results - Last 24 Hours (Table) 03/13/18 03/13/18 Range/Units 06:57 06:57 RBC 3.21 L (3.80-5.40) m/uL Hgb 7.9 L (11.4-16.0) gm/dL Hct 26.2 L (34.0-46.0) % MCH 24.8 L (25.0-35.0) pg MCHC 30.4 L (31.0-37.0) g/dL RDW 18.1 H (11.5-15.5) % Potassium 3.4 L (3.5-5.1) mmol/L Chloride 112 H (98-107) mmol/L Calcium 8.3 L (8.4-10.2) mg/dL
[2018-03-13] MEDS ORDERED: Potassium Replacement Protocol 1 EACH MISC MISCELLANE PRN (15:06)
[2018-03-13] MEDS: POTASSIUM CHLORIDE ER 20 MEQ TAB.ER PO SCH ×2 (16:05→17:34)
[2018-03-13] MEDS ORDERED: MAGNESIUM CITRATE 296 ML BOTTLE PO ONE (18:00)
[2018-03-13] MEDS: POTASSIUM CHLORIDE 10 MEQ in WATER FOR INJECTION 1 100ML.BAG IVPB SCH ×2 (20:54→23:26)
[2018-03-13] MEDS: ATORVASTATIN 20 MG TAB PO SCH (20:54)
[2018-03-14] MEDS: LEVOTHYROXINE 125 MCG TAB PO SCH (05:56)
[2018-03-14] MEDS: SODIUM CHLORIDE 0.9% 1,000 ML IV SCH ×2 (05:56→20:27)
[2018-03-14 08:59] LABS: Anisocytosis Slight; Basophils % (A) 0 %; Eosinophils # (A) 0.2 k/uL (0-0.7); Eosinophils % (A) 5 %; HCT 27.2 % (34.0-46.0); HGB 8.2 gm/dL (11.4-16.0); Hypochromasia Marked; Lymphocytes # (A) 0.9 k/uL (1.0-4.8); Lymphocytes % (A) 24 %; MCH 24.2 pg (25.0-35.0); MCHC 30.2 g/dL (31.0-37.0); Mean Platelet Volume 8.6; Microcytosis Slight; Monocytes # (A) 0.3 k/uL (0-1.0); Monocytes % (A) 7 %; Neutrophils # (A) 2.4 k/uL (1.3-7.7); Neutrophils % (A) 62 %; Platelet Count 265 k/uL (150-450); Poikilocytosis Moderate; RDW 18.3 % (11.5-15.5); WBC 3.8 k/uL (3.8-10.6)
[2018-03-14] MEDS: METOPROLOL TARTRATE 50 MG TAB PO SCH ×3 (09:10→21:53)
[2018-03-14] MEDS: amLODIPine 5 MG TAB PO SCH (09:17)
[2018-03-14] MEDS: PANTOPRAZOLE 40 MG/10 ML VIAL IVP SCH ×2 (09:17→20:26)
[2018-03-14 09:27] LABS: Calcium 8.6 mg/dL (8.4-10.2); Phosphorus 3.2 mg/dL (2.5-4.5); Potassium 4.4 mmol/L (3.5-5.1)
[2018-03-14] MEDS ORDERED: IV FLUID CONTINUATION 1,000 ML IV ONE (12:16)
--- NOTE | 2018-03-14 13:25 | P.PN ---
Subjective Progress Note Date: 03/14/18 Principal diagnosis: Blood per rectum, cecal mass Pleasant 82-year-old female who presented with complaints of blood per rectum and was found to have a large cecal mass (pathology pending) suggestive of a colon malignancy. Currently she is reporting no pain with decreased blood per rectum. She is scheduled for surgical intervention today. Objective - Vital Signs Vital signs: Vital Signs Temp 98.9 F 03/14/18 12:16 Pulse 60 03/14/18 12:16 Resp 16 03/14/18 12:16 BP 181/79 03/14/18 12:16 Pulse Ox 98 03/14/18 12:16 Intake & Output 03/13/18 03/14/18 03/14/18 18:59 06:59 18:59 Intake Total 1020 650 Output Total 150 Balance 1020 500 Intake: Intake, IV Titration 650 Amount Potassium Chloride 10 meq 50 In Water For Injection 1 100ml.bag @ 100 mls/hr IVPB Q1H [facility] Rx#: [id number] Sodium Chloride 0.9% 1, 600 000 ml @ 75 mls/hr IV . [id number] [facility] Rx#:[id number] Oral 1020 Output: Urine 150 Other: # Voids 3 1 # Bowel Movements 2 6 - Exam Constitutional: Lying in bed in no apparent distress Head: normocephalic/atraumatic Eyes: No icterus, no injection Mouth: Moist mucous membranes Nose: No discharge noted Neck: Trachea midline Lungs: Normal air entry in all lung merino, no wheezing appreciated Abdomen: Soft, nontender, nondistended, normal bowel sounds. No guarding or rigidity Skin: No rashes, no jaundice Neuro: Awake alert and oriented 3, no focal deficits - Labs CBC & Chem 7: 03/14/18 08:23 03/14/18 08:23 Labs: Abnormal Lab Results - Last 24 Hours (Table) 03/13/18 03/13/18 03/14/18 Range/Units 14:09 18:48 08:23 RBC 3.40 L (3.80-5.40) m/uL Hgb 8.2 L (11.4-16.0) gm/dL Hct 27.2 L (34.0-46.0) % MCH 24.2 L (25.0-35.0) pg MCHC 30.2 L (31.0-37.0) g/dL RDW 18.3 H (11.5-15.5) % Lymphocytes # 0.9 L (1.0-4.8) k/uL Potassium 3.4 L 3.2 L (3.5-5.1) mmol/L Chloride (98-107) mmol/L BUN (7-17) mg/dL 03/14/18 Range/Units 08:23 RBC (3.80-5.40) m/uL Hgb (11.4-16.0) gm/dL Hct (34.0-46.0) % MCH (25.0-35.0) pg MCHC (31.0-37.0) g/dL RDW (11.5-15.5) % Lymphocytes # (1.0-4.8) k/uL Potassium (3.5-5.1) mmol/L Chloride 114 H (98-107) mmol/L BUN 6 L (7-17) mg/dL Assessment and Plan (1) Colonic mass Narrative/Plan: Large cecal mass seen on colonoscopy, likely cause of patient's lower GI bleeding. Current Visit: Yes Status: Acute Code(s): K63.9 - DISEASE OF INTESTINE, UNSPECIFIED SNOMED Code(s): 406216299 (2) Acute blood loss anemia Narrative/Plan: Secondary to above. Current Visit: Yes Status: Acute Code(s): D62 - ACUTE POSTHEMORRHAGIC ANEMIA SNOMED Code(s): 011614287 (3) Gastrointestinal hemorrhage Narrative/Plan: Secondary to above. Current Visit: Yes Status: Acute Code(s): K92.2 - GASTROINTESTINAL HEMORRHAGE, UNSPECIFIED SNOMED Code(s): 95084604 Plan: Supportive care Diet per surgical service Appreciate recommendations Monitor hemoglobin and transfuse as needed Plan is for intervention today We'll standby, please call with any questions or concerns
--- NOTE | 2018-03-14 13:38 | P.PN ---
Subjective Progress Note Date: 03/14/18 Patient seen in preoperative area. No acute events overnight. No abdominal pain. Objective - Vital Signs Vital signs: Vital Signs Temp 98.9 F 03/14/18 12:16 Pulse 60 03/14/18 12:16 Resp 16 03/14/18 12:16 BP 181/79 03/14/18 12:16 Pulse Ox 98 03/14/18 12:16 Intake & Output 03/13/18 03/14/18 03/14/18 18:59 06:59 18:59 Intake Total 1020 650 Output Total 150 Balance 1020 500 Intake: Intake, IV Titration 650 Amount Potassium Chloride 10 meq 50 In Water For Injection 1 100ml.bag @ 100 mls/hr IVPB Q1H [facility] Rx#: [id number] Sodium Chloride 0.9% 1, 600 000 ml @ 75 mls/hr IV . [id number] [facility] Rx#:[id number] Oral 1020 Output: Urine 150 Other: # Voids 3 1 # Bowel Movements 2 6 - Constitutional General appearance: Present: cooperative - Respiratory Details: No difficulty with respiration - Gastrointestinal Gastrointestinal Comment(s): Soft, nontender, nondistended, no rebound, no guarding - Psychiatric Psychiatric: Present: A&O x's 3 - Labs CBC & Chem 7: 03/14/18 08:23 03/14/18 08:23 Labs: Abnormal Lab Results - Last 24 Hours (Table) 03/13/18 03/13/18 03/14/18 Range/Units 14:09 18:48 08:23 RBC 3.40 L (3.80-5.40) m/uL Hgb 8.2 L (11.4-16.0) gm/dL Hct 27.2 L (34.0-46.0) % MCH 24.2 L (25.0-35.0) pg MCHC 30.2 L (31.0-37.0) g/dL RDW 18.3 H (11.5-15.5) % Lymphocytes # 0.9 L (1.0-4.8) k/uL Potassium 3.4 L 3.2 L (3.5-5.1) mmol/L Chloride (98-107) mmol/L BUN (7-17) mg/dL 03/14/18 Range/Units 08:23 RBC (3.80-5.40) m/uL Hgb (11.4-16.0) gm/dL Hct (34.0-46.0) % MCH (25.0-35.0) pg MCHC (31.0-37.0) g/dL RDW (11.5-15.5) % Lymphocytes # (1.0-4.8) k/uL Potassium (3.5-5.1) mmol/L Chloride 114 H (98-107) mmol/L BUN 6 L (7-17) mg/dL Assessment and Plan (1) Colonic mass Narrative/Plan: 82-year-old female with cecal mass - I had a long discussion with the patient and the patient's family. Today was the plan for surgery, however due to a large time restrictions, surgery would have to be delayed multiple hours today due to the fact that this surgery is an add-on case. At this time, we will plan for surgery on 03/15/2018 as a scheduled case. The case is planned for 11 AM. - CT of the abdomen and pelvis along with chest x-ray were reviewed with no obvious metastatic lesion - Clear liquid diet for the rest of the day, nothing by mouth after midnight - Type and screen has been completed for any blood transfusion that may be necessary in the perioperative setting Current Visit: Yes Status: Acute Code(s): K63.9 - DISEASE OF INTESTINE, UNSPECIFIED SNOMED Code(s): 151582219
[2018-03-14] MEDS ORDERED: fentaNYL (PF) 50 MCG/ML 2 ML AMP IV PRN (16:57)
[2018-03-14] MEDS ORDERED: MIDAZOLAM 2 MG/2 ML VIAL IV PRN (16:57)
--- NOTE | 2018-03-14 17:04 | PN ---
PROGRESS NOTE DATE OF SERVICE: 03/14/2018 This is an 82-year-old white female who was brought to the emergency room because of severe weakness and tiredness and she was found to have a low hemoglobin in the ER. Her hemoglobin was 4.7. The patient was admitted to the hospital for further evaluation and treatment. The patient has had multiple hospitalizations during the past one year with GI bleeding, severe anemia, and she also has a history of chronic atrial fibrillation. She has been on Eliquis. She also has a past history of CVA and TIAs and also has a history of intracranial hemorrhage in the past. This time patient was admitted to ICU and Dr. Sanchez saw the patient in consultation for ICU management. He has been following the patient. A GI consultation was obtained and the patient was seen by a railroad track inspector. The patient had multiple transfusions and her hemoglobin came up to around 8.2. Patient was scheduled for upper and lower endoscopy and apparently was found to have a cecal mass which does seem to be the source of bleeding. Surgical consultation was obtained and she was seen by Dr. Марина Antonio. Patient was scheduled for surgical resection and apparently patient is going for surgery this morning. Prognosis is guarded. The patient was also being followed by [facility], and apparently her chest discomfort was due to musculoskeletal pain. Cardiac-ricardo, she was found to be stable. MMODL / IJN: [id number] /
[2018-03-14] MEDS: LACTATED RINGERS 1,000 ML IV SCH (18:52)
[2018-03-14] MEDS: ATORVASTATIN 20 MG TAB PO SCH (20:26)
[2018-03-15] MEDS: LEVOTHYROXINE 125 MCG TAB PO SCH (05:57)
[2018-03-15] MEDS: amLODIPine 5 MG TAB PO SCH (08:09)
[2018-03-15] MEDS: METOPROLOL TARTRATE 50 MG TAB PO SCH ×3 (08:09→23:01)
[2018-03-15] MEDS: PANTOPRAZOLE 40 MG/10 ML VIAL IVP SCH ×2 (08:09→20:41)
[2018-03-15] MEDS ORDERED: NALOXONE 0.4 MG/ML 1 ML VIAL IV PRN (09:26)
[2018-03-15] MEDS: LACTATED RINGERS 1,000 ML IV SCH ×2 (09:28→11:05)
[2018-03-15] MEDS ORDERED: MIDAZOLAM 2 MG/2 ML VIAL IVP ONE (09:39)
[2018-03-15] MEDS ORDERED: ceFAZolin 1,000 MG in DEXTROSE/WATER 1 50ML.BAG IVPB ONE (10:28)
[2018-03-15] MEDS ORDERED: metroNIDAZOLE-NS PMX 500 MG in SALINE 1 100ML.BAG IVPB STA (10:29)
[2018-03-15] MEDS ORDERED: ROCURONIUM BROMIDE 10 MG/ML 10 ML VIAL IV ONE (11:05)
[2018-03-15] MEDS ORDERED: fentaNYL (PF) 50 MCG/ML 2 ML AMP ONE (11:05)
[2018-03-15] MEDS ORDERED: MIDAZOLAM 2 MG/2 ML VIAL ONE (11:05)
[2018-03-15] MEDS ORDERED: LIDOCAINE 1% INJ 10MG/ML (20 ML MDV) ONE (11:05)
[2018-03-15] MEDS ORDERED: PROPOFOL 10 MG/ML 20 ML VIAL IV ONE (11:05)
[2018-03-15] MEDS ORDERED: ePHEDrine SULFATE/0.9% NACL/PF 50 MG/5 ML SYRINGE IV ONE (11:05)
--- NOTE | 2018-03-15 13:15 | P.OP ---
Date of Procedure: 03/15/18 Preoperative Diagnosis: Cecal mass Postoperative Diagnosis: Cecal mass Procedure(s) Performed: Right hemicolectomy Anesthesia: BERNY Surgeon: Марина Antonio Pathology: other (Right colon) Condition: stable Disposition: floor Indications for Procedure: 82-year-old female presented to the hospital with findings of severe anemia with hemoglobin of 4.7. On workup, the patient did have a colonoscopy that revealed a cecal mass. Due to this, metastatic workup was performed and plan was for right hemicolectomy. Operative Findings: Palpable cecal mass, 2 areas of tattoo included in resection Description of Procedure: The patient was taken to the operating suite and placed in the supine position on the operating table. Sedation was provided by anesthesia and the patient underwent endotracheal intubation. Martínez catheter was then placed. The patient did have an epidural placed prior to attending the operating suite. The abdomen was prepped and draped in the usual sterile fashion. A midline laparotomy incision was made with a #10 blade scalpel and subcutaneous tissues were with electrocautery down to the anterior abdominal fascia. Once divided, the intra-abdominal cavity was accessed. The incision was then extended along the length of the skin incision. The small bowel was retracted into the left lower quadrant and the right colon was clearly visualized. Tattoo was visualized in the cecum and in the transverse colon. The gastrologist had mentioned prior to the operation that the cecum is where the large mass was and the second tattoo in the transverse colon was a sessile polyp that was unable to be removed endoscopically. The right side of the colon was mobilized along the line of Toldt down to the right gutter, the entire ileocecal region up to the transverse colon was mobilized into the field. There were some adhesions noted in the right upper quadrant to the gallbladder. These were bluntly and sharply dissected. A window was made approximately 5 inches from the ileocecal valve proximally and a JASPAL-75 was fired across the ileum. Next, a second JASPAL device was fired across the transverse colon just distal to the site of the tattoo. The dissection was then carried down along the mesentery, down to the root of the mesentery to include several lymph nodes. No lymph node was noticeably palpable. LigaSure device was used to dissect through the mesentery. The specimen was then removed. Next, a [id number] anastomosis was performed between the transverse colon and the terminal ileum. A third JASPAL-75 was fired [id number] and a TX stapler was used to close the anastomosis. A patent anastomosis was palpated. The anastomosis was protected with a 2-0 Vicryl suture. Next, the mesenteric root was closed with a running 2-0 Vicryl suture to prevent any chance of internal hernia. The suture sites were inspected and there is no evidence of leakage or hemorrhage. Next, the intra-abdominal cavity was thoroughly irrigated with sterile saline. The abdominal wall was then reapproximated in the fascial layer was closed using a 0 PDS suture in a running fashion. Skin was then closed with skin stapler. The patient was awakened in the operating suite and taken to the postoperative care unit in stable condition.
[2018-03-15] MEDS: ROPIVACAINE EPIDURAL PRN (14:02)
[2018-03-15] MEDS: SODIUM CHLORIDE 0.9% EPIDURAL PRN (14:02)
[2018-03-15] MEDS: FENTANYL EPIDURAL PRN (14:02)
[2018-03-15] MEDS: SODIUM CHLORIDE 0.9% 1,000 ML IV SCH ×2 (17:18→21:54)
[2018-03-15] MEDS: HEPARIN SODIUM,PORCINE 5,000 UNIT/ML 1 ML VIAL SQ SCH (17:18)
[2018-03-15] MEDS: METOCLOPRAMIDE 5 MG/ML 2 ML VIAL IVP SCH (17:18)
[2018-03-15] MEDS: ATORVASTATIN 20 MG TAB PO SCH (20:41)
[2018-03-15] MEDS ORDERED: SODIUM CHLORIDE 0.9% 500 ML 500 ML IV ONE ×2 (21:06→23:39)
[2018-03-16] MEDS: HEPARIN SODIUM,PORCINE 5,000 UNIT/ML 1 ML VIAL SQ SCH ×4 (00:32→23:47)
[2018-03-16] MEDS: METOCLOPRAMIDE 5 MG/ML 2 ML VIAL IVP SCH ×5 (00:34→23:47)
[2018-03-16] MEDS: LEVOTHYROXINE 125 MCG TAB PO SCH (05:56)
--- NOTE | 2018-03-16 07:15 | P.PN ---
Progress Note - Text Progress Note Date: 03/16/18 Date:03/16/2018 Time:06 The patient is status post ht mayelin-colectomy] postoperative day number[1] The patient has no complaints of nausea vomiting or headache. The patient does not complain of any lower extremity numbness or weakness. The epidural is running at[6] mL per hour with a VAS of 4/10. The epidural will be adjusted back to 10ml/hr if Systolic blood pressure tolerates since she was more comfortable with that rate.
[2018-03-16 07:51] LABS: Anisocytosis Slight; Basophils % (A) 0 %; Eosinophils % (A) 0 %; HCT 29.1 % (34.0-46.0); HGB 8.6 gm/dL (11.4-16.0); Hypochromasia Marked; Lymphocytes # (A) 0.7 k/uL (1.0-4.8); Lymphocytes % (A) 8 %; MCH 24.4 pg (25.0-35.0); MCHC 29.6 g/dL (31.0-37.0); MCV 82.7 fL (80.0-100.0); Mean Platelet Volume 8.2; Monocytes # (A) 0.4 k/uL (0-1.0); Monocytes % (A) 5 %; Neutrophils # (A) 6.8 k/uL (1.3-7.7); Neutrophils % (A) 85 %; Platelet Count 252 k/uL (150-450); Poikilocytosis Moderate; RBC 3.52 m/uL (3.80-5.40)
[2018-03-16 08:02] LABS: Calcium 8.2 mg/dL (8.4-10.2); Potassium 3.7 mmol/L (3.5-5.1)
[2018-03-16] MEDS: METOPROLOL TARTRATE 50 MG TAB PO SCH ×3 (12:06→22:38)
[2018-03-16] MEDS: amLODIPine 5 MG TAB PO SCH (12:07)
[2018-03-16] MEDS: PANTOPRAZOLE 40 MG/10 ML VIAL IVP SCH ×2 (12:07→20:23)
[2018-03-16] MEDS: SODIUM CHLORIDE 0.9% 1,000 ML IV SCH ×2 (12:07→17:50)
--- NOTE | 2018-03-16 12:31 | CONS ---
CONSULTATION CHIEF COMPLAINT: Atrial fibrillation. Radha is an 82-year-old lady with history of hypertension and chronic atrial fibrillation who presented to the hospital with acute GI bleed, underwent evaluation and was found to have colon cancer for which she underwent colectomy. Cardiology had been consulted because of history of atrial fibrillation. At the time of my evaluation, patient is feeling better. Denies chest pain or difficulty in breathing. Denies palpitations. She is currently on Norvasc, Lipitor, Lopressor. Anticoagulant is currently on hold. Patient has epidural injections going on. Whenever she is off it and the surgeon is comfortable starting an anticoagulant, we are going to resume the Eliquis. PAST MEDICAL HISTORY: Significant for atrial fibrillation, hypothyroidism, dyslipidemia, and hypertension. CURRENT MEDICATIONS: Current medications include Norvasc 5 q. daily, Protonix 40 q. daily, Lopressor 50 t.i.d., Synthroid, vitamin D, Lipitor and Eliquis. ALLERGIES: Allergic to CODEINE and CIPRO. FAMILY HISTORY: Negative for premature coronary artery disease. SOCIAL HISTORY: Negative for smoking, EtOH abuse or drug abuse. REVIEW OF SYSTEMS: HEENT is unremarkable. CARDIAC: As described above. RESPIRATORY: Negative. GI: As described above. GENITOURINARY: Negative. ALLERGY/IMMUNOLOGY: Negative. SKIN: Negative. MUSCULOSKELETAL: Significant for arthritis. PSYCHOSOCIAL: Negative. ENDOCRINE: Negative. DERM: Negative. CONSTITUTIONAL: Negative. ONCOLOGICAL: Significant for colon cancer. Rest of the system review is not relevant. PHYSICAL EXAMINATION: On exam, patient is comfortable at rest. Vital signs are stable. There is no jugular venous distention. Chest exam reveals good air entry bilaterally. Heart exam reveals first and second heart sounds. Systolic murmur at the left lower sternal border. Abdomen is status post surgery. Examination of the extremities did not reveal any edema. LABS: Labs show a hemoglobin of 8.6. Potassium is 3.7. Creatinine is 1. ASSESSMENT: 1. Chronic atrial fibrillation. 2. Gastrointestinal bleed secondary to colon cancer, status post colectomy. 3. Hypertension. 4. Dyslipidemia. PLAN: Patient will continue with current medications. Will resume the anticoagulant whenever it is feasible from surgical standpoint. Thank you for allowing us to participate in the care of this pleasant lady. MMODL / IJN: [id number] /
[2018-03-16] MEDS: SODIUM CHLORIDE 0.9% EPIDURAL PRN (13:50)
[2018-03-16] MEDS: FENTANYL EPIDURAL PRN (13:50)
[2018-03-16] MEDS: ROPIVACAINE EPIDURAL PRN (13:50)
--- NOTE | 2018-03-16 16:10 | P.PN ---
Subjective Progress Note Date: 03/16/18 Patient seen and examined at bedside. States her pain is well-controlled with the epidural in place. Martínez catheter is in place. Patient denies any bowel function. She is tolerating clear liquid diet. Objective - Vital Signs Vital signs: Vital Signs Temp 98.6 F 03/16/18 15:00 Pulse 66 03/16/18 15:00 Resp 16 03/16/18 03:30 BP 109/61 03/16/18 15:00 Pulse Ox 98 03/16/18 15:00 Intake & Output 03/15/18 03/16/18 03/16/18 18:59 06:59 18:59 Intake Total 466 23 400 Output Total 285 350 Balance 181 -327 400 Weight 63.44 kg 63.44 kg Intake: IV 466 Intake, IV Titration 23 Amount Ropivacaine 300 mg 23 fentaNYL (PF) 625 mcg In Sodium Chloride 0.9% 178 ml @ Per Protocol EPIDURAL .Q0M PRN Rx#: [id number] Oral 400 Output: Urine 225 350 Estimated Blood Loss 60 Other: Voiding Method Bedside Commode Indwelling Catheter - Constitutional General appearance: Present: cooperative - Respiratory Details: No difficulty with respiration - Gastrointestinal Gastrointestinal Comment(s): Soft, appropriate tenderness, nondistended, no rebound, incision site with surgical dressing - Musculoskeletal Musculoskeletal: Present: generalized weakness - Psychiatric Psychiatric: Present: A&O x's 3 - Labs CBC & Chem 7: 03/16/18 07:10 03/16/18 07:10 Labs: Abnormal Lab Results - Last 24 Hours (Table) 03/16/18 03/16/18 Range/Units 07:10 07:10 RBC 3.52 L (3.80-5.40) m/uL Hgb 8.6 L (11.4-16.0) gm/dL Hct 29.1 L (34.0-46.0) % MCH 24.4 L (25.0-35.0) pg MCHC 29.6 L (31.0-37.0) g/dL RDW 17.0 H (11.5-15.5) % Lymphocytes # 0.7 L (1.0-4.8) k/uL Chloride 115 H (98-107) mmol/L Carbon Dioxide 18 L (22-30) mmol/L Glucose 112 H (74-99) mg/dL Calcium 8.2 L (8.4-10.2) mg/dL Assessment and Plan (1) Colonic mass Narrative/Plan: 82-year-old female with cecal mass, postoperative day #1 from right hemicolectomy - Patient is doing well today - Clear liquid diet - Pain control with epidural - Continue Martínez well epidural in place - Continue to increase activity - Anticoagulation can be resumed when epidural has been removed - Progressing slowly Current Visit: Yes Status: Acute Code(s): K63.9 - DISEASE OF INTESTINE, UNSPECIFIED SNOMED Code(s): 904285872
[2018-03-16] MEDS ORDERED: SODIUM CHLORIDE 0.9% 500 ML 500 ML IV ONE (17:13)
[2018-03-16] MEDS: LACTATED RINGERS 1,000 ML IV SCH (18:07)
[2018-03-16] MEDS: ATORVASTATIN 20 MG TAB PO SCH (20:23)
[2018-03-17] MEDS: SODIUM CHLORIDE 0.9% 1,000 ML IV SCH ×4 (01:06→16:08)
[2018-03-17] MEDS: METOCLOPRAMIDE 5 MG/ML 2 ML VIAL IVP SCH ×3 (05:13→18:30)
[2018-03-17] MEDS: LEVOTHYROXINE 125 MCG TAB PO SCH (05:13)
[2018-03-17 07:16] LABS: Anisocytosis Slight; Basophils % (A) 0 %; Eosinophils # (A) 0.2 k/uL (0-0.7); Eosinophils % (A) 3 %; HCT 25.4 % (34.0-46.0); HGB 7.5 gm/dL (11.4-16.0); Hypochromasia Marked; Lymphocytes # (A) 1.2 k/uL (1.0-4.8); Lymphocytes % (A) 17 %; MCH 24.3 pg (25.0-35.0); MCHC 29.7 g/dL (31.0-37.0); MCV 81.9 fL (80.0-100.0); Mean Platelet Volume 8.5; Monocytes # (A) 0.4 k/uL (0-1.0); Monocytes % (A) 6 %; Neutrophils # (A) 4.8 k/uL (1.3-7.7); Neutrophils % (A) 71 %; Platelet Count 283 k/uL (150-450); Poikilocytosis Moderate; RDW 17.3 % (11.5-15.5); WBC 6.8 k/uL (3.8-10.6)
[2018-03-17 07:18] LABS: Glucose,Whole Blood 114 mg/dL (75-99)
[2018-03-17 07:27] LABS: Calcium 7.9 mg/dL (8.4-10.2); Potassium 3.5 mmol/L (3.5-5.1)
--- NOTE | 2018-03-17 09:07 | P.PN ---
Subjective Progress Note Date: 03/17/18 Patient seen and examined at bedside. Overnight, patient did have some hypotensive episodes that resolved after readjustment of epidural dosage. She denies any nausea and vomiting. Tolerating clear liquid diet. Denies any bowel function. Urine output at 25-35 mL/h. Objective - Vital Signs Vital signs: Vital Signs Temp 98.7 F 03/17/18 07:00 Pulse 70 03/17/18 07:00 Resp 17 03/17/18 07:00 BP 138/62 03/17/18 07:00 Pulse Ox 94 L 03/17/18 07:09 Intake & Output 03/16/18 03/17/18 03/17/18 18:59 06:59 18:59 Intake Total 400 1600 Output Total 250 200 150 Balance 150 1400 -150 Weight 63.44 kg Intake: Intake, IV Titration 1600 Amount Sodium Chloride 0.9% 1, 1600 000 ml @ 100 mls/hr IV . Q10H [facility] Rx#:[id number] Oral 400 Output: Urine 250 200 150 Other: Voiding Method Indwelling Catheter Indwelling Catheter - Constitutional General appearance: Present: cooperative, no acute distress - Respiratory Details: No difficulty with respiration - Gastrointestinal Gastrointestinal Comment(s): Soft, mild distention, appropriate tenderness, and no rebound, no guarding, incision site with surgical sterile dressing in place - Musculoskeletal Musculoskeletal: Present: generalized weakness - Psychiatric Psychiatric: Present: A&O x's 3 - Labs CBC & Chem 7: 03/17/18 06:14 03/17/18 06:14 Labs: Abnormal Lab Results - Last 24 Hours (Table) 03/17/18 03/17/18 03/17/18 Range/Units 06:14 06:14 07:07 RBC 3.10 L (3.80-5.40) m/uL Hgb 7.5 L (11.4-16.0) gm/dL Hct 25.4 L (34.0-46.0) % MCH 24.3 L (25.0-35.0) pg MCHC 29.7 L (31.0-37.0) g/dL RDW 17.3 H (11.5-15.5) % Chloride 115 H (98-107) mmol/L Carbon Dioxide 20 L (22-30) mmol/L POC Glucose (mg/dL) 114 H (75-99) mg/dL Calcium 7.9 L (8.4-10.2) mg/dL Assessment and Plan (1) Colonic mass Narrative/Plan: 82-year-old female with cecal mass, postoperative day #2 from right hemicolectomy - Patient is doing well today - Clear liquid diet, I did discuss case with dietitian, plan for advancing diet with increased bowel function in next 24-48 hours - Pain control with epidural - Continue Martínez well epidural in place - Continue to increase activity, I did discuss up to chair with nursing today - Await further bowel function - Anticoagulation can be resumed when epidural has been removed - Progressing slowly Current Visit: Yes Status: Acute Code(s): K63.9 - DISEASE OF INTESTINE, UNSPECIFIED SNOMED Code(s): 303399541
[2018-03-17] MEDS: METOPROLOL TARTRATE 50 MG TAB PO SCH ×3 (12:37→21:05)
[2018-03-17] MEDS: amLODIPine 5 MG TAB PO SCH (12:37)
[2018-03-17] MEDS: HEPARIN SODIUM,PORCINE 5,000 UNIT/ML 1 ML VIAL SQ SCH ×2 (12:37→18:27)
[2018-03-17] MEDS: PANTOPRAZOLE 40 MG/10 ML VIAL IVP SCH ×2 (12:37→21:05)
--- NOTE | 2018-03-17 13:08 | P.PN ---
Subjective This is a pleasant 82-year-old female past medical history significant for hypertension and chronic atrial fibrillation presented to the hospital with acute GI bleed and was found to have a mass in her colon for which she underwent a colectomy. She is postoperative day #2. She is seen and examined sitting up comfortably in bed. She continues to be on epidural pain control. Blood pressure readings low last night and epidural infusion was decreased. She denies symptoms of chest pain, shortness of breath, dizziness or palpitations. She complains of abdominal discomfort. She states she has not yet passed any gas. She is maintained on amlodipine 5 mg daily, atorvastatin 20 mg daily and metoprolol titrate 50 mg 3 times a day. She is tolerating her medications orally. Blood pressure 160/75 heart rate 71 afebrile maintaining oxygen saturation on room air. Laboratory data reviewed, WBC 6.8, hemoglobin 7.5, platelets 283, sodium 139, potassium 3.5, creatinine 1.01. Per surgical service anticoagulation can be resumed when epidural has been removed. GENERAL: Well-appearing, well-nourished and in no acute distress. NECK: Supple without JVD or thyromegaly. LUNGS: Breath sounds clear to auscultation bilaterally. Respiration equal and unlabored. No wheezes, rales or rhonchi. HEART: Irregular rate and rhythm with systolic ejection murmur at the left sternal border, no rubs or gallops. S1 and S2 heard. EXTREMITIES: Normal range of motion, no edema. No clubbing or cyanosis. Peripheral pulses intact. ASSESSMENT Chronic persistent atrial fibrillation Gastrointestinal bleed secondary to colon mass status post colectomy Hypertension Dyslipidemia PLAN Continue current medical regimen. Recommend resuming anticoagulation as soon as appropriate for surgical services once the epidural has been removed. We will continue to follow and make recommendations accordingly. Nurse Practitioner note has been reviewed, I agree with a documented findings and plan of care. Patient was seen and examined. Objective - Vital Signs Vital signs: Vital Signs Temp 98.0 F 03/17/18 07:30 Pulse 71 03/17/18 07:30 Resp 16 03/17/18 07:30 BP 168/75 03/17/18 07:30 Pulse Ox 96 03/17/18 07:30 Intake & Output 03/16/18 03/17/18 03/17/18 18:59 06:59 18:59 Intake Total 400 1600 300 Output Total 250 200 150 Balance 150 1400 150 Weight 63.44 kg Intake: Intake, IV Titration 1600 Amount Sodium Chloride 0.9% 1, 1600 000 ml @ 100 mls/hr IV . Q10H [facility] Rx#:[id number] Oral 400 300 Output: Urine 250 200 150 Other: Voiding Method Indwelling Catheter Indwelling Catheter - Labs CBC & Chem 7: 03/17/18 06:14 03/17/18 06:14 Labs: Abnormal Lab Results - Last 24 Hours (Table) 03/17/18 03/17/18 03/17/18 Range/Units 06:14 06:14 07:07 RBC 3.10 L (3.80-5.40) m/uL Hgb 7.5 L (11.4-16.0) gm/dL Hct 25.4 L (34.0-46.0) % MCH 24.3 L (25.0-35.0) pg MCHC 29.7 L (31.0-37.0) g/dL RDW 17.3 H (11.5-15.5) % Chloride 115 H (98-107) mmol/L Carbon Dioxide 20 L (22-30) mmol/L POC Glucose (mg/dL) 114 H (75-99) mg/dL Calcium 7.9 L (8.4-10.2) mg/dL
--- NOTE | 2018-03-17 13:08 | P.PN ---
Progress Note - Text Anesthesia POD 1. Status Post hemicolectomy under general endotracheal anesthesia with an epidrual catheter placed at approximately T10 for post surgical pain releif. VAS (0, 4) with Ropivicaine 0.12 % and Dilaudid 2.5 mcg / cc running at 8 cc / hr. Lower extremity strength (4/4). No sedation. Site looks OK.
[2018-03-17] MEDS: ROPIVACAINE EPIDURAL PRN (16:38)
[2018-03-17] MEDS: FENTANYL EPIDURAL PRN (16:38)
[2018-03-17] MEDS: SODIUM CHLORIDE 0.9% EPIDURAL PRN (16:38)
[2018-03-17] MEDS: LACTATED RINGERS 1,000 ML IV SCH (17:50)
--- NOTE | 2018-03-17 17:56 | PN ---
PROGRESS NOTE DATE OF SERVICE: 03/15/2018 This is an 82-year-old white female who was admitted to the hospital with severe anemia due to GI bleeding. She was initially admitted to ICU and received multiple transfusions. Her hemoglobin at the time of admission was 4.7. Patient was seen by Dr. Sanchez in consultation for ICU management. Patient was seen by a caterer helper in consultation, and when her condition became stable she had a colonoscopy and was found to have a cecal mass; this was thought to be the source of bleeding. She also had a CT scan that confirmed the cecal mass. Patient was seen by a surgeon and scheduled for surgery. Dr. Antonio scheduled her for surgery and she apparently went through the surgery and she tolerated the surgery well. The pathology report is pending. Her vital signs are stable. Hemoglobin also is remaining stable. Patient has chronic atrial fibrillation and Cardiology has been consulted. She had been on Eliquis in the past and this is being held. Overall prognosis is guarded. The diagnosis, prognosis and therapeutic plans were discussed in detail with the patient. MMODL / IJN: [id number] /
--- NOTE | 2018-03-17 18:05 | PN ---
PROGRESS NOTE DATE OF SERVICE: 03/16/2018 This is an 82-year-old white female who has a longstanding history of chronic atrial fibrillation and a history of recurrent GI bleeding. Patient has been on Eliquis. She also has a history of intraabdominal hemorrhage in the past. She was brought to the emergency room because she was extremely tired and weak, and she was found to have severe anemia with a hemoglobin around 4.7. Patient was admitted to the hospital. Initially she was in ICU and she was seen and followed by boat canvas maker installer Dr. Sanchez for ICU management. Patient has a history of chronic atrial fibrillation and the Eliquis was discontinued. When her cardiac status became stable, she was seen by a arcade attendant, who did a colonoscopy and the patient was found to have a cecal mass. Dr. Марина Antonio was consulted for surgical evaluation and he recommend right colectomy. Patient had surgery done and patient apparently tolerated the surgery well. Patient is recovering without any complications and her hemoglobin remains stable. It is 8.6 today. Patient's vital signs are stable. Cardiology also saw the patient in consultation and they are following the patient. She has been started on clear liquids and is tolerating well. Overall prognosis is guarded. MMODL / IJN: [id number] /
--- NOTE | 2018-03-17 18:14 | PN ---
PROGRESS NOTE DATE OF SERVICE: 03/17/2018 This is an 82-year-old white female who was admitted to the hospital with severe blood loss anemia. Her hemoglobin at the time of admission was 4.7, and the patient was admitted to the ICU. Patient was given multiple transfusions and when her condition became stable, patient had a colonoscopy by the pyrometallurgical engineer. Patient was found to have a cecal mass and the patient was seen by Dr. Марина Antonio for surgical evaluation. Patient had a right hemicolectomy. Postoperatively patient is recovering without any complications. Her vital signs are stable. She is afebrile. Her hemoglobin today is 7.5. The patient has been started on clear liquids and is tolerating well. Patient is also being followed by a commercial solar sales consultant and her Eliquis is being held. Overall prognosis is guarded. The diagnosis, prognosis and therapeutic plans were discussed in detail with the patient today. MMODL / IJN: [id number] /
[2018-03-17] MEDS: ATORVASTATIN 20 MG TAB PO SCH (21:05)
[2018-03-18] MEDS: SODIUM CHLORIDE 0.9% 1,000 ML IV SCH ×2 (01:13→11:01)
[2018-03-18] MEDS: METOCLOPRAMIDE 5 MG/ML 2 ML VIAL IVP SCH ×4 (01:14→17:26)
[2018-03-18] MEDS: HEPARIN SODIUM,PORCINE 5,000 UNIT/ML 1 ML VIAL SQ SCH ×3 (01:14→16:37)
[2018-03-18] MEDS: LEVOTHYROXINE 125 MCG TAB PO SCH (06:03)
[2018-03-18] MEDS ORDERED: FUROSEMIDE 10 MG/ML 2 ML VIAL IV ONE (07:13)
--- NOTE | 2018-03-18 08:06 | P.PN ---
Subjective Progress Note Date: 03/18/18 Patient seen and examined at bedside. Complains of mild nausea and states she is tired of the clear liquid diet. According to nursing, the patient is tolerating clear liquid and sure. Denies any bowel function. Denies any emesis. He has only been out of bed for small amount of time. Objective - Vital Signs Vital signs: Vital Signs Temp 98.0 F 03/18/18 07:00 Pulse 69 03/18/18 07:00 Resp 16 03/18/18 07:00 BP 146/77 03/18/18 07:00 Pulse Ox 95 03/18/18 07:00 Intake & Output 03/17/18 03/18/18 03/18/18 18:59 06:59 18:59 Intake Total 1225.4 Output Total 650 325 Balance 575.4 -325 Weight 63.44 kg Intake: Intake, IV Titration 214.4 Amount Ropivacaine 300 mg 214.4 fentaNYL (PF) 625 mcg In Sodium Chloride 0.9% 178 ml @ Per Protocol EPIDURAL .Q0M PRN Rx#: [id number] Oral 1011 Output: Urine 650 325 Uretheral (Martínez) 300 Other: Voiding Method Indwelling Catheter Indwelling Catheter - Constitutional General appearance: Present: cooperative - EENT ENT: Present: hearing grossly normal - Respiratory Details: No difficulty with respiration - Gastrointestinal Gastrointestinal Comment(s): Soft, mild distention, no rebound, no guarding, incision site with surgical sterile dressing. - Psychiatric Psychiatric: Present: A&O x's 3 - Labs CBC & Chem 7: 03/17/18 06:14 03/17/18 06:14 Assessment and Plan (1) Colonic mass Narrative/Plan: 82-year-old female with cecal mass, postoperative day #3 from right hemicolectomy - Patient is doing well today - Clear liquid diet, due to no bowel function at this time, I did place consult for dietitian for beginning TPN - Pain control with epidural - Continue Martínez well epidural in place - Continue to increase activity, I did discuss up to chair with nursing today, I also did discuss the importance of increased activity with the patient - Will give 1 dose of Lasix 20 mg - Await further bowel function - Anticoagulation can be resumed when epidural has been removed - Progressing slowly Current Visit: Yes Status: Acute Code(s): K63.9 - DISEASE OF INTESTINE, UNSPECIFIED SNOMED Code(s): 708996240
[2018-03-18] MEDS: amLODIPine 5 MG TAB PO SCH (08:20)
[2018-03-18] MEDS: METOPROLOL TARTRATE 50 MG TAB PO SCH ×3 (08:20→20:52)
[2018-03-18] MEDS: PANTOPRAZOLE 40 MG/10 ML VIAL IVP SCH ×2 (08:20→20:52)
[2018-03-18] MEDS: ONDANSETRON 4 MG/2 ML VIAL IVP PRN ×2 (08:48→20:56)
[2018-03-18 09:52] LABS: Anisocytosis Slight; Basophils % (A) 0 %; Eosinophils # (A) 0.3 k/uL (0-0.7); Eosinophils % (A) 3 %; HCT 28.4 % (34.0-46.0); HGB 8.6 gm/dL (11.4-16.0); Hypochromasia Marked; Lymphocytes # (A) 0.9 k/uL (1.0-4.8); Lymphocytes % (A) 11 %; MCH 24.4 pg (25.0-35.0); MCHC 30.3 g/dL (31.0-37.0); MCV 80.5 fL (80.0-100.0); Mean Platelet Volume 8.3; Microcytosis Slight; Monocytes # (A) 0.4 k/uL (0-1.0); Monocytes % (A) 5 %; Neutrophils # (A) 6.2 k/uL (1.3-7.7); Neutrophils % (A) 79 %; Platelet Count 357 k/uL (150-450); Poikilocytosis Marked; RBC 3.53 m/uL (3.80-5.40); RDW 17.4 % (11.5-15.5); WBC 7.9 k/uL (3.8-10.6)
[2018-03-18 10:22] LABS: Calcium 8.2 mg/dL (8.4-10.2); Potassium 3.3 mmol/L (3.5-5.1)
--- NOTE | 2018-03-18 10:26 | P.PN ---
Progress Note - Text 03/18 1019 82-year-old female status post exploratory lap by Dr. Antonio. Patient has an epidural catheter running at 8 mL an hour with a VAS of 0. No complains of nausea vomiting or pruritus. Plan to DC the epidural nurse informed
[2018-03-18] MEDS ORDERED: HYDROcodone/APAP 5-325MG 1 EACH TAB PO PRN (11:46)
[2018-03-18] MEDS: HYDROmorphone 1 MG/ML 1 ML SYRINGE IVP PRN (12:22)
--- NOTE | 2018-03-18 12:23 | P.PN ---
Subjective This is a pleasant 82-year-old female past medical history significant for hypertension and chronic atrial fibrillation presented to the hospital with acute GI bleed and was found to have a mass in her colon for which she underwent a colectomy. She is postoperative day #3. She is seen and examined sitting up comfortably in bed. Epidural has been removed just in the last hour per nursing. She complains of nausea. She denies symptoms of chest pain, shortness of breath, dizziness or palpitations. She states she has not yet passed any gas. She is maintained on amlodipine 5 mg daily, atorvastatin 20 mg daily and metoprolol titrate 50 mg 3 times a day. Nursing got her up to the chair for this first time today and her heart rate went up to the 140's. Nursing have her mid-day dose of lopressor early on my recommendation. GENERAL: Well-appearing, well-nourished and in no acute distress. NECK: Supple without JVD or thyromegaly. LUNGS: Breath sounds clear to auscultation bilaterally. Respiration equal and unlabored. No wheezes, rales or rhonchi. HEART: Irregular rate and rhythm with systolic ejection murmur at the left sternal border, no rubs or gallops. S1 and S2 heard. EXTREMITIES: Normal range of motion, no edema. No clubbing or cyanosis. Peripheral pulses intact. ASSESSMENT Chronic persistent atrial fibrillation Gastrointestinal bleed secondary to colon mass status post colectomy Hypertension Dyslipidemia PLAN Continue current medical regimen. Recommend resuming anticoagulation as soon as appropriate for surgical services Eliquis should be resumed. Continue with TID beta blockers. We will continue to follow as needed, please feel free to call with further questions or concerns. Nurse Practitioner note has been reviewed, I agree with a documented findings and plan of care. Patient was seen and examined. Objective - Vital Signs Vital signs: Vital Signs Temp 98.0 F 03/18/18 07:00 Pulse 69 03/18/18 08:30 Resp 16 03/18/18 07:00 BP 146/77 03/18/18 07:00 Pulse Ox 95 03/18/18 07:00 Intake & Output 03/17/18 03/18/18 03/18/18 18:59 06:59 18:59 Intake Total 1225.4 Output Total 650 325 Balance 575.4 -325 Weight 63.44 kg Intake: Intake, IV Titration 214.4 Amount Ropivacaine 300 mg 214.4 fentaNYL (PF) 625 mcg In Sodium Chloride 0.9% 178 ml @ Per Protocol EPIDURAL .Q0M PRN Rx#: [id number] Oral 1011 Output: Urine 650 325 Uretheral (Martínez) 300 Other: Voiding Method Indwelling Catheter Indwelling Catheter Indwelling Catheter - Labs CBC & Chem 7: 03/18/18 08:36 03/18/18 08:36 Labs: Abnormal Lab Results - Last 24 Hours (Table) 03/18/18 03/18/18 Range/Units 08:36 08:36 RBC 3.53 L (3.80-5.40) m/uL Hgb 8.6 L (11.4-16.0) gm/dL Hct 28.4 L (34.0-46.0) % MCH 24.4 L (25.0-35.0) pg MCHC 30.3 L (31.0-37.0) g/dL RDW 17.4 H (11.5-15.5) % Lymphocytes # 0.9 L (1.0-4.8) k/uL Potassium 3.3 L (3.5-5.1) mmol/L Chloride 115 H (98-107) mmol/L Carbon Dioxide 17 L (22-30) mmol/L Glucose 125 H (74-99) mg/dL Calcium 8.2 L (8.4-10.2) mg/dL
[2018-03-18] MEDS ORDERED: METOPROLOL TARTRATE 50 MG TAB PO STA (13:18)
[2018-03-18] MEDS ORDERED: MVI, ADULT NO.4 WITH VIT K 10 ML, TRACE (CONC-1ML/DOSE) 1 ML in AMINO ACID 4.25%-D10W+L... IV SCH ×3 (15:30)
[2018-03-18] MEDS ORDERED: LIDOCAINE 1% INJ 10MG/ML (20 ML MDV) SQ ONE (15:47)
[2018-03-18] MEDS: FAT EMULSION 20% 250 ML IV SCH (16:46)
[2018-03-18 16:50] LABS: Ionized Calcium 5.2 mg/dL (4.5-5.3)
[2018-03-18 16:58] LABS: Albumin 2.4 g/dL (3.5-5.0); Phosphorus 3.1 mg/dL (2.5-4.5)
[2018-03-18] MEDS: LACTATED RINGERS 1,000 ML IV SCH (17:02)
[2018-03-18 17:08] LABS: Magnesium 1.5 mg/dL (1.6-2.3)
[2018-03-18] MEDS: MAGNESIUM SULFATE-D5W PMX 1 GM in DEXTROSE/WATER 1 100ML.BAG IVPB SCH ×2 (18:17→20:08)
[2018-03-18] MEDS: ATORVASTATIN 20 MG TAB PO SCH (20:52)
[2018-03-19] MEDS: HEPARIN SODIUM,PORCINE 5,000 UNIT/ML 1 ML VIAL SQ SCH (00:11)
[2018-03-19] MEDS: METOCLOPRAMIDE 5 MG/ML 2 ML VIAL IVP SCH ×4 (00:12→17:36)
[2018-03-19] MEDS: POTASSIUM CHLORIDE ER 20 MEQ TAB.ER PO SCH ×2 (00:12→00:26)
[2018-03-19] MEDS ORDERED: 1: MVI, ADULT NO.4 WITH VIT K 10 ML, TRACE (CONC-1ML/DOSE) 1 ML in AMINO ACID 4.25%-D10W IV SCH ×3 (03:30)
[2018-03-19] MEDS: FAT EMULSION 20% 250 ML IV SCH ×2 (04:13→17:52)
[2018-03-19] MEDS: LEVOTHYROXINE 125 MCG TAB PO SCH (05:46)
[2018-03-19] MEDS: ONDANSETRON 4 MG/2 ML VIAL IVP PRN (05:46)
[2018-03-19 07:18] LABS: Anisocytosis Slight; Basophils % (A) 0 %; Eosinophils % (A) 0 %; HCT 28.4 % (34.0-46.0); HGB 8.7 gm/dL (11.4-16.0); Hypochromasia Marked; Lymphocytes # (A) 0.5 k/uL (1.0-4.8); Lymphocytes % (A) 5 %; MCH 23.9 pg (25.0-35.0); MCHC 30.6 g/dL (31.0-37.0); Mean Platelet Volume 7.6; Microcytosis Slight; Monocytes # (A) 0.4 k/uL (0-1.0); Monocytes % (A) 5 %; Neutrophils % (A) 88 %; Platelet Count 421 k/uL (150-450); Poikilocytosis Marked; RBC 3.63 m/uL (3.80-5.40); RDW 17.5 % (11.5-15.5); WBC 9.1 k/uL (3.8-10.6)
[2018-03-19 07:28] LABS: Calcium 8.3 mg/dL (8.4-10.2); Magnesium 1.8 mg/dL (1.6-2.3); Phosphorus 2.9 mg/dL (2.5-4.5); Potassium 3.1 mmol/L (3.5-5.1)
[2018-03-19 07:31] LABS: Glucose,Whole Blood 187 mg/dL (75-99)
[2018-03-19] MEDS: METOPROLOL TARTRATE 50 MG TAB PO SCH ×3 (08:21→21:11)
[2018-03-19] MEDS: APIXABAN 2.5 MG TABLET PO SCH ×2 (08:21→21:10)
[2018-03-19] MEDS: amLODIPine 5 MG TAB PO SCH (08:21)
[2018-03-19] MEDS: PANTOPRAZOLE 40 MG/10 ML VIAL IVP SCH ×2 (08:22→21:11)
[2018-03-19] MEDS ORDERED: 1: MVI, ADULT NO.4 WITH VIT K 10 ML, TRACE (CONC-1ML/DOSE) 1 ML, POTASSIUM CHLORIDE 20 M IV SCH ×4 (09:00)
[2018-03-19] MEDS: POTASSIUM CHLORIDE 10 MEQ in WATER FOR INJECTION 1 100ML.BAG IVPB SCH ×4 (09:59→12:50)
--- NOTE | 2018-03-19 11:20 | IR ---
PICC LINE PLACEMENT: HISTORY: Infection requiring long-term antibiotic therapy PROCEDURE: Ultrasound and fluoroscopic guidance of PICC line placement. COMPLICATIONS: None ANESTHESIA: 1. 1% Lidocaine locally. FINDINGS/TECHNIQUE: The procedure was explained to the patient. The risks, complications, benefits and alternatives were discussed and any questions were answered. Informed consent was obtained. The patient was placed supine on the fluoroscopic table and prepped and draped in the usual sterile fash ion. Utilizing a 21 gauge needle and sonographic and fluoroscopic guidance, access in the left basi lic vein was achieved and there is placement of a 0.018 guidewire. The vein is patent. A 4-F sheath was placed over the guidewire. The guidewire and dilator were removed and a 4-F. PICC line was plac ed through the sheath with the tip at the level of the SVC. The sheath was removed, the catheter was flushed and sutured into position. The patient was stable throughout the procedure and remained sta ble upon discharge from the Department of Radiology. The vein puncture was patent under ultrasound. A jones scale image was obtained to document patency of the vein punctured. All elements of the maximal barrier technique were utilized. FLUOROSCOPY TIME: 0.5 minute and one image submitted IMPRESSION: Successful PICC line placement under ultrasound and fluoroscopic guidance.
[2018-03-19 12:02] LABS: Glucose,Whole Blood 152 mg/dL (75-99)
--- NOTE | 2018-03-19 12:38 | P.PN ---
Subjective Progress Note Date: 03/19/18 Patient did have several liquid BM today however she was started on clears and has had bilious emesis with NV. She denies abdominal pain. No other complaints. Objective - Vital Signs Vital signs: Vital Signs Temp 98.7 F 03/19/18 07:00 Pulse 122 H 03/19/18 08:00 Resp 16 03/19/18 08:00 BP 151/84 03/19/18 07:00 Pulse Ox 94 L 03/19/18 07:00 Intake & Output 03/18/18 03/19/18 03/19/18 18:59 06:59 18:59 Intake Total 440 Output Total 2100 75 75 Balance -2100 365 -75 Weight 63.44 kg 63.44 kg Intake: Oral 440 Output: Urine 2100 Uretheral (Martínez) 300 Emesis 75 75 Other: Voiding Method Toilet Bedside Commode Bedside Commode Diaper Diaper # Voids 1 3 - Constitutional General appearance: Present: cooperative - Respiratory Details: nonlabored - Cardiovascular Details: Tachy, afib Heart rate: 120 - Gastrointestinal Gastrointestinal Comment(s): soft nontender, mild distention - Psychiatric Psychiatric: Present: A&O x's 3 - Labs CBC & Chem 7: 03/19/18 06:59 03/19/18 06:59 Labs: Abnormal Lab Results - Last 24 Hours (Table) 03/18/18 03/19/18 03/19/18 Range/Units 16:26 06:59 06:59 RBC 3.63 L (3.80-5.40) m/uL Hgb 8.7 L (11.4-16.0) gm/dL Hct 28.4 L (34.0-46.0) % MCV 78.0 L (80.0-100.0) fL MCH 23.9 L (25.0-35.0) pg MCHC 30.6 L (31.0-37.0) g/dL RDW 17.5 H (11.5-15.5) % Neutrophils # 8.0 H (1.3-7.7) k/uL Lymphocytes # 0.5 L (1.0-4.8) k/uL Potassium 3.1 L (3.5-5.1) mmol/L Chloride 110 H (98-107) mmol/L Carbon Dioxide 21 L (22-30) mmol/L Glucose 174 H (74-99) mg/dL POC Glucose (mg/dL) (75-99) mg/dL Calcium 8.3 L (8.4-10.2) mg/dL Magnesium 1.5 L (1.6-2.3) mg/dL Albumin 2.4 L (3.5-5.0) g/dL 03/19/18 03/19/18 Range/Units 07:20 11:51 RBC (3.80-5.40) m/uL Hgb (11.4-16.0) gm/dL Hct (34.0-46.0) % MCV (80.0-100.0) fL MCH (25.0-35.0) pg MCHC (31.0-37.0) g/dL RDW (11.5-15.5) % Neutrophils # (1.3-7.7) k/uL Lymphocytes # (1.0-4.8) k/uL Potassium (3.5-5.1) mmol/L Chloride (98-107) mmol/L Carbon Dioxide (22-30) mmol/L Glucose (74-99) mg/dL POC Glucose (mg/dL) 187 H 152 H (75-99) mg/dL Calcium (8.4-10.2) mg/dL Magnesium (1.6-2.3) mg/dL Albumin (3.5-5.0) g/dL Assessment and Plan Assessment: 82-year-old female with cecal mass, postoperative day #4 from right hemicolectomy Plan: NPO for now secondary to NV, cardiology recs for afib, cont TPN. If she continues to have NV will plan for NGT
[2018-03-19] MEDS: 1: MVI, ADULT NO.4 WITH VIT K 10 ML, TRACE (CONC-1ML/DOSE) 1 ML, POTASSIUM CHLORIDE 20 M IV SCH ×4 (12:47)
[2018-03-19] MEDS ORDERED: TRIMETHOBENZAMIDE 100 MG/ML 2 ML VIAL IM PRN (12:59)
[2018-03-19 17:20] LABS: Glucose,Whole Blood 157 mg/dL (75-99)
[2018-03-19] MEDS: VERAPAMIL 80 MG TAB PO SCH ×2 (17:35→21:11)
[2018-03-19] MEDS: LACTATED RINGERS 1,000 ML IV SCH (17:36)
[2018-03-19 20:39] LABS: Glucose,Whole Blood 144 mg/dL (75-99)
[2018-03-19] MEDS: ATORVASTATIN 20 MG TAB PO SCH (21:10)
--- NOTE | 2018-03-19 23:52 | PN ---
PROGRESS NOTE DATE OF SERVICE: 03/19/2018. ATTENDING PHYSICIAN: Dr. Rolando Angel. COVERING PHYSICIAN: Dr. Royal Pritchard. HISTORY OF PRESENT ILLNESS: This is an 82-year-old female who was admitted to the hospital with severe anemia. The patient on workup was noted to have evidence of right colon malignancy. The patient has undergone surgery. She has also a history of chronic atrial fibrillation. The patient had some atrial fibrillation with rapid ventricular rate. The patient is followed by Cardiology. She is actually feeling fairly well. Denies any complaints. REVIEW OF SYSTEMS: NEURO: Denies any headaches or dizziness. PSYCH: No anxiety. CARDIAC: No chest pain, angina, palpitation. RESPIRATORY: Denies shortness of breath, cough, hemoptysis. GI: Some nausea and abdominal pain. No bowel movements. : No symptoms of dysuria or hematuria. EXTREMITIES: Denies pain. CONSTITUTIONAL: No fevers or chills. PHYSICAL EXAMINATION: Pleasant female at present. No distress. Vital signs, temperature 98.7, pulse 122, respirations 16, blood pressure 151/84, pulse ox 94. HEENT: Normocephalic. NECK: No JVD. CHEST: Clear to auscultation. CARDIAC: Normal S1, S2 with no gallops. Irregularly, irregular rhythm. Systolic murmur 2/6 left sternal border. ABDOMEN: Tender. Bowel sounds absent. EXTREMITIES: No edema, no tenderness. NEUROLOGIC: Awake, alert, oriented. Well-coordinated movements of both upper and lower extremities. LABORATORY ASSESSMENT: Hemoglobin of 8.7, platelets 421,000, potassium 3.1, CO2 content 21, BUN and creatinine normal. Sugar was 174. Albumin low at 2.4. ASSESSMENT: 1. Atrial fibrillation with rapid ventricular rate. 2. Anemia secondary to chronic blood loss. 3. CA of the colon post surgery. PLAN: Continue present medical regimen as mentioned above. Cardiology is following the patient. The patient is also on TPN. The patient's pain is controlled. MMODL / IJN: [id number] /
--- NOTE | 2018-03-20 00:22 | PN ---
PROGRESS NOTE DATE OF SERVICE: 03/18/2018. HISTORY: This 89-year-old white female who has had multiple chronic medical problems, and she is known to have chronic atrial fibrillation and has had a history of intracranial hemorrhage and CVA and TIA's in the past and also she has been on Eliquis. She has had recurrent GI bleeding. At this time, patient was brought to the emergency room with severe weakness, tiredness, and she was found to have extremely low hemoglobin which was around 4.7. Also she was found to have GI bleeding. The patient was admitted to ICU. In the ICU, the patient received multiple blood transfusions and her hemoglobin came up to 8.5. The patient was also seen by the beam department supervisor and she had a colonoscopy Apparently this showed a cecal mass. The patient was then seen by a surgeon, Dr. Antonio, and the patient had a right hemicolectomy. She tolerated the surgery well. Postoperatively patient is recovering without significant complications. The patient was also seen by [facility] and they are following the patient. Her hemoglobin is remaining stable. Dr. Antonio has cleared her for starting back on Eliquis. She is going to be started back on Eliquis starting tomorrow. Otherwise, the patient feels well. She is still extremely weak. Her vital signs are otherwise stable. Oral intake is improving. She is still on a liquid diet and she is tolerating this well. She has no acute cardiorespiratory problems. Overall prognosis is guarded. The diagnosis, prognosis, and therapeutic plans were discussed in detail with the patient today. MMODL / IJN: [id number] /
[2018-03-20] MEDS ORDERED: METOPROLOL TARTRATE 50 MG TAB PO STA (00:52)
[2018-03-20] MEDS ORDERED: SODIUM CHLORIDE 0.9% 1,000 ML IV SCH (01:00)
[2018-03-20] MEDS: METOCLOPRAMIDE 5 MG/ML 2 ML VIAL IVP SCH ×4 (01:31→19:22)
[2018-03-20] MEDS: 1: MVI, ADULT NO.4 WITH VIT K 10 ML, TRACE (CONC-1ML/DOSE) 1 ML, POTASSIUM CHLORIDE 20 M IV SCH ×16 (03:39→18:24)
[2018-03-20] MEDS: LEVOTHYROXINE 125 MCG TAB PO SCH (06:27)
[2018-03-20 07:12] LABS: Glucose,Whole Blood 136 mg/dL (75-99)
[2018-03-20 07:32] LABS: Anion Gap 5 mmol/L; Blood Urea Nitrogen 16 mg/dL (7-17); Calcium 8.2 mg/dL (8.4-10.2); Carbon Dioxide 23 mmol/L (22-30); Chloride 107 mmol/L (98-107); Glucose 121 mg/dL (74-99); Magnesium 1.7 mg/dL (1.6-2.3); Phosphorus 3.2 mg/dL (2.5-4.5); Potassium 3.6 mmol/L (3.5-5.1); Sodium 135 mmol/L (137-145)
[2018-03-20 09:16] LABS: T4, Free (Free Thyroxine) 2.35 ng/dL (0.78-2.19)
[2018-03-20] MEDS: APIXABAN 2.5 MG TABLET PO SCH ×2 (09:32→22:09)
[2018-03-20] MEDS: PANTOPRAZOLE 40 MG/10 ML VIAL IVP SCH ×2 (09:32→22:10)
[2018-03-20] MEDS: METOPROLOL TARTRATE 50 MG TAB PO SCH ×2 (09:32→22:10)
[2018-03-20] MEDS: VERAPAMIL 80 MG TAB PO SCH ×3 (09:32→22:09)
--- NOTE | 2018-03-20 11:56 | P.PN ---
Subjective Progress Note Date: 03/20/18 Patient did have small BM today however she is still feeling nauseated. No emesis reported. She denies abdominal pain. No other complaints. Objective - Vital Signs Vital signs: Vital Signs Temp 98.6 F 03/20/18 09:54 Pulse 104 H 03/20/18 09:54 Resp 16 03/20/18 09:54 BP 118/74 03/20/18 09:54 Pulse Ox 96 03/20/18 09:54 Intake & Output 03/19/18 03/20/18 03/20/18 18:59 06:59 18:59 Intake Total 1240 5301.333 0 Output Total 75 Balance 1165 5301.333 0 Weight 63.44 kg Intake: Intake, IV Titration 1000 4091.333 Amount Amino Acid 4.25%-D10w+ 1000 2000 Lytes*E* 1,000 ml @ 65 mls/hr IV .BY DURATION [facility] Rx#:[id number] Mvi, Adult No.4 with Vit 966.333 K 10 ml Trace (Conc-1Ml/ Dose) 1 ml Potassium Chloride 20 meq In Amino Acid 4.25%-D10w+Lytes*E* 1,000 ml @ 65 mls/hr IV . BY DURATION [facility] Rx#: [id number] Sodium Chloride 0.9% 1, 1125 000 ml @ 100 mls/hr IV . Q10H [facility] Rx#:[id number] Oral 240 1210 0 Output: Emesis 75 Other: Voiding Method Bedside Commode Bedside Commode Diaper Diaper # Voids 3 - Constitutional General appearance: Present: cooperative - Respiratory Details: nonlabored - Cardiovascular Details: afib - Gastrointestinal Gastrointestinal Comment(s): soft, mild distention, nontender, dressing CDI - Psychiatric Psychiatric: Present: A&O x's 3 - Labs CBC & Chem 7: 03/19/18 06:59 03/20/18 06:24 Labs: Abnormal Lab Results - Last 24 Hours (Table) 03/19/18 03/19/18 03/19/18 Range/Units 11:51 17:09 19:29 Sodium (137-145) mmol/L Potassium 3.3 L (3.5-5.1) mmol/L Glucose (74-99) mg/dL POC Glucose (mg/dL) 152 H 157 H (75-99) mg/dL Calcium (8.4-10.2) mg/dL TSH (0.465-4.680) mIU/L Free T4 (0.78-2.19) ng/dL 03/19/18 03/20/18 03/20/18 Range/Units 20:28 06:24 07:00 Sodium 135 L (137-145) mmol/L Potassium (3.5-5.1) mmol/L Glucose 121 H (74-99) mg/dL POC Glucose (mg/dL) 144 H 136 H (75-99) mg/dL Calcium 8.2 L (8.4-10.2) mg/dL TSH <0.015 L (0.465-4.680) mIU/L Free T4 2.35 H (0.78-2.19) ng/dL Assessment and Plan Assessment: 82-year-old female with cecal mass, postoperative day #5 from right hemicolectomy Plan: Patient is slightly more distended today, recommend cont. NPO and TPN. She had one small BM but overall with her nausea and distention she likely still has ileus.
--- NOTE | 2018-03-20 12:02 | P.PN ---
Subjective Progress Note Date: 03/20/18 Patient being seen today for Dr. Angel. This 82-year-old female was admitted to the hospital with anemia. She had surgery for colon cancer. She also has atrial fibrillation rapid ventricular rate. Cardiology did see her yesterday and added verapamil. I did later put her a Lopressor up to 100 mg twice a day. She is tolerating that well her heart rate is better controlled. Her thyroid results came back showing the TSH was fairly low and free T4 is elevated. We will hold her thyroid medication for the next 2-3 days repeated PH and free T4. Meanwhile patient is feeling better since she had a good bowel movement yesterday and today. The patient has no further nausea vomiting. Her pain is improved. REVIEW OF SYSTEMS: Neuro: Denies any headaches dizziness. Psych: Denies anxiety depression feels oriented. Cardiac: Denies chest pain and angina palpitations. Respiratory: Denies shortness of breath cough. GI: Denies any nausea vomiting today abdominal pain controlled. Her bowel movements : Denies dysuria hematuria. Extremities: Denies pain. No edema. Skin: Intact. Constitutional: No fever, chills. Objective - Vital Signs Vital signs: Vital Signs Temp 98.6 F 03/20/18 09:54 Pulse 104 H 03/20/18 09:54 Resp 16 03/20/18 09:54 BP 118/74 03/20/18 09:54 Pulse Ox 96 03/20/18 09:54 Intake & Output 03/19/18 03/20/18 03/20/18 18:59 06:59 18:59 Intake Total 1240 5301.333 0 Output Total 75 Balance 1165 5301.333 0 Weight 63.44 kg Intake: Intake, IV Titration 1000 4091.333 Amount Amino Acid 4.25%-D10w+ 1000 2000 Lytes*E* 1,000 ml @ 65 mls/hr IV .BY DURATION [facility] Rx#:[id number] Mvi, Adult No.4 with Vit 966.333 K 10 ml Trace (Conc-1Ml/ Dose) 1 ml Potassium Chloride 20 meq In Amino Acid 4.25%-D10w+Lytes*E* 1,000 ml @ 65 mls/hr IV . BY DURATION [facility] Rx#: [id number] Sodium Chloride 0.9% 1, 1125 000 ml @ 100 mls/hr IV . Q10H [facility] Rx#:[id number] Oral 240 1210 0 Output: Emesis 75 Other: Voiding Method Bedside Commode Bedside Commode Diaper Diaper # Voids 3 PHYSICAL EXAMINATION: Cooperative, at present in no acute distress. HEENT: Neck supple. No JVD. Chest: Clear to auscultation Cardiac: Normal S1 and S2 irregularly irregular no gallops systolic murmur 2/6 left sternal border. Abdomen: Mildly tender bowel sounds present. Extremities: No edema no tenderness Neurologically: Awake, alert, oriented with well-coordinated movements. - Labs CBC & Chem 7: 03/19/18 06:59 03/20/18 06:24 Labs: Abnormal Lab Results - Last 24 Hours (Table) 03/19/18 03/19/18 03/19/18 Range/Units 11:51 17:09 19:29 Sodium (137-145) mmol/L Potassium 3.3 L (3.5-5.1) mmol/L Glucose (74-99) mg/dL POC Glucose (mg/dL) 152 H 157 H (75-99) mg/dL Calcium (8.4-10.2) mg/dL TSH (0.465-4.680) mIU/L Free T4 (0.78-2.19) ng/dL 03/19/18 03/20/18 03/20/18 Range/Units 20:28 06:24 07:00 Sodium 135 L (137-145) mmol/L Potassium (3.5-5.1) mmol/L Glucose 121 H (74-99) mg/dL POC Glucose (mg/dL) 144 H 136 H (75-99) mg/dL Calcium 8.2 L (8.4-10.2) mg/dL TSH <0.015 L (0.465-4.680) mIU/L Free T4 2.35 H (0.78-2.19) ng/dL Assessment and Plan Assessment: ASSESSMENT: 1. Atrial fibrillation rapid ventricular rate. 2. Anemia secondary to acute and chronic blood loss. 3. Carcinoma of the colon. 4. ASHD. 5. Hypothyroidism on replacement therapy PLAN: Continue present medical regimen. Thyroid medication be held. Repeat free T4 TSH in 3 days. Progress has been increased 100 mg twice a day patient continues on verapamil. Cardiology following with the patient ,surgeons following on the patient..
[2018-03-20 12:13] LABS: Glucose,Whole Blood 138 mg/dL (75-99)
--- NOTE | 2018-03-20 15:21 | ECHOF ---
Referral Reason:afib MEASUREMENTS -------- HEIGHT: 165.1 cm WEIGHT: 63.0 kg BP: 151/84 IVSd: 1.4 cm (0.6 - 1.1) LVIDd: 3.3 cm (3.9 - 5.3) LVPWd: 1.3 cm (0.6 - 1.1) IVSs: 1.5 cm LVIDs: 1.7 cm LVPWs: 1.5 cm LAESV Index (A-L): 70.89 ml/m Ao Diam: 3.4 cm (2.0 - 3.7) AV Cusp: 1.9 cm (1.5 - 2.6) MV E Tristen: 1.11 m/s MV DecT: 160 ms MV A Tristen: 0.00 m/s MV E/A Ratio: 400.10 RAP: 5.00 mmHg RVSP: 23.84 mmHg FINDINGS -------- Resting tachycardia (HR>100bpm). This was a technically adequate study. The left ventricular size is normal. There is mild concentric left ventricular hypertrophy. Left ventricular systolic function is hyperdynamic with an estimated EF of >70%. The right ventricle is normal in size and function. LA is severely dilated >40 ml/m2 RA appears enlarged. There is mild aortic valve sclerosis. Trace amount of aortic regurgitation. There is no evidence of aortic stenosis. The mitral valve leaflets are mildly thickened. Mild mitral annular calcification present. There is trace to mild mitral regurgitation. Trace tricuspid regurgitation present. Right ventricular systolic pressure is normal at < 35 mmHg. There is no evidence of pulmonary hypertension. The pulmonic valve was not well visualized. The aortic root size is normal. IVC Not well visulized. There is no pericardial effusion. CONCLUSIONS -------- 1. Resting tachycardia (HR>100bpm). 2. This was a technically adequate study. 3. The left ventricular size is normal. 4. There is mild concentric left ventricular hypertrophy. 5. Left ventricular systolic function is hyperdynamic with an estimated EF of >70%. 6. LA is severely dilated >40 ml/m2 7. RA appears enlarged. 8. There is mild aortic valve sclerosis. 9. Trace amount of aortic regurgitation. 10. The mitral valve leaflets are mildly thickened. 11. Mild mitral annular calcification present. 12. There is trace to mild mitral regurgitation. 13. Trace tricuspid regurgitation present. 14. Right ventricular systolic pressure is normal at < 35 mmHg. 15. There is no evidence of pulmonary hypertension. 16. The pulmonic valve was not well visualized. 17. The aortic root size is normal. 18. IVC Not well visulized. 19. There is no pericardial effusion. AMMONIUM HYDROXIDE OPERATOR: Baljinder Orr RDCS
[2018-03-20 17:20] LABS: Glucose,Whole Blood 134 mg/dL (75-99)
[2018-03-20 20:35] LABS: Glucose,Whole Blood 141 mg/dL (75-99)
[2018-03-20] MEDS: ATORVASTATIN 20 MG TAB PO SCH (22:09)
[2018-03-21] MEDS: METOCLOPRAMIDE 5 MG/ML 2 ML VIAL IVP SCH ×5 (00:48→23:57)
--- NOTE | 2018-03-21 01:14 | PN ---
PROGRESS NOTE DATE OF SERVICE: 03/20/2018. HISTORY: This patient is in atrial fibrillation. Patient is doing fairly well. The patient is still not started on . Her heart rate is now is in the range of 100 and 120. The patient's metoprolol was increased to 3 times a day. Patient is afebrile. Heart, S1 and S2 normal. Lungs are clinically clear to auscultation and percussion. Patient's free T4 was high at 2.35 and TSH is 0.015. FINAL IMPRESSION: Atrial fibrillation with moderately rapid ventricular response. Continue metoprolol and Calan. ____ is continued. MMODL / IJN: [id number] /
[2018-03-21 08:35] LABS: Anisocytosis Slight; Basophils % (A) 0 %; Eosinophils # (A) 0.2 k/uL (0-0.7); Eosinophils % (A) 3 %; HCT 23.7 % (34.0-46.0); HGB 7.3 gm/dL (11.4-16.0); Hypochromasia Marked; Lymphocytes # (A) 0.8 k/uL (1.0-4.8); Lymphocytes % (A) 12 %; MCH 23.9 pg (25.0-35.0); MCHC 30.8 g/dL (31.0-37.0); MCV 77.7 fL (80.0-100.0); Mean Platelet Volume 7.2; Microcytosis Slight; Monocytes # (A) 0.6 k/uL (0-1.0); Monocytes % (A) 8 %; Neutrophils # (A) 5.3 k/uL (1.3-7.7); Neutrophils % (A) 75 %; Platelet Count 377 k/uL (150-450); Poikilocytosis Moderate; RBC 3.05 m/uL (3.80-5.40); RDW 17.8 % (11.5-15.5); WBC 7.1 k/uL (3.8-10.6)
[2018-03-21 09:15] LABS: Ionized Calcium 5.1 mg/dL (4.5-5.3)
[2018-03-21 09:33] LABS: Anion Gap 4 mmol/L; Blood Urea Nitrogen 23 mg/dL (7-17); Calcium 7.9 mg/dL (8.4-10.2); Carbon Dioxide 23 mmol/L (22-30); Chloride 108 mmol/L (98-107); Glucose 108 mg/dL (74-99); Magnesium 1.7 mg/dL (1.6-2.3); Phosphorus 3.6 mg/dL (2.5-4.5); Potassium 3.8 mmol/L (3.5-5.1); Sodium 135 mmol/L (137-145)
[2018-03-21] MEDS: 1: MVI, ADULT NO.4 WITH VIT K 10 ML, TRACE (CONC-1ML/DOSE) 1 ML, POTASSIUM CHLORIDE 20 M IV SCH ×4 (11:02)
[2018-03-21] MEDS: FAT EMULSION 20% 250 ML IV SCH (11:03)
[2018-03-21] MEDS: METOPROLOL TARTRATE 50 MG TAB PO SCH ×2 (11:15→21:37)
[2018-03-21] MEDS: APIXABAN 2.5 MG TABLET PO SCH ×2 (11:15→21:37)
[2018-03-21] MEDS: PANTOPRAZOLE 40 MG/10 ML VIAL IVP SCH ×2 (11:15→21:37)
[2018-03-21] MEDS: VERAPAMIL 80 MG TAB PO SCH ×3 (11:15→21:37)
[2018-03-21] MEDS: ONDANSETRON 4 MG/2 ML VIAL IVP PRN (13:11)
--- NOTE | 2018-03-21 13:55 | XR ---
EXAMINATION TYPE: XR chest 1V portable DATE OF EXAM: 03/21/2018 COMPARISON: 03/13/2018 HISTORY: Shortness of breath TECHNIQUE: Single frontal view of the chest is obtained. FINDINGS: There is consolidation at both lung bases with small effusions. PICC line noted. Remote tr auma left shoulder with arthropathy of bilateral shoulder. No pneumothorax. There is a lucency along the right hemidiaphragm. This is difficult to determine if this is related to free intraperitoneal ai r or tiny pneumothorax. Patient's nurse called with results. IMPRESSION: 1. Bilateral consolidation and pleural effusion mild central venous congestion in the differential di agnosis. 2. There is a lucency along the medial margin of the right hemidiaphragm difficult to determine if th is is related to a tiny pneumothorax or tiny amount of free air correlate with surgical history. Upri ght view of the abdomen recommended. Patient's nurse notified by telephone.
--- NOTE | 2018-03-21 13:58 | P.PN ---
Subjective This is a pleasant 82-year-old female past medical history significant for hypertension and chronic atrial fibrillation presented to the hospital with acute GI bleed and was found to have a mass in her colon for which she underwent a colectomy. She is seen and examined sitting up comfortably in bed. Her anticoagulation has been resumed. She denies symptoms of chest pain, shortness of breath, dizziness or palpitations. She states she has started passing gas. Her heart rates have been elevated over the weekend and verapamil was added to her daily regimen as well as increasing her daily dose of lopressor. Blood pressure today 119/66 heart rate 98 afebrile and maintaining oxygen saturation on room air. Laboratory data reviewed, hemoglobin 7.3, platelets 377, sodium 135, potassium 3.8, creatinine 0.73, magnesium 1.7. Echocardiogram obtained reveals hyperdynamic left ventricular systolic function with ejection fraction greater than 70%, severely dilated left atrium. GENERAL: Well-appearing, well-nourished and in no acute distress. NECK: Supple without JVD or thyromegaly. LUNGS: Breath sounds clear to auscultation bilaterally. Respiration equal and unlabored. No wheezes, rales or rhonchi. HEART: Irregular rate and rhythm with systolic ejection murmur at the left sternal border, no rubs or gallops. S1 and S2 heard. EXTREMITIES: Normal range of motion, no edema. No clubbing or cyanosis. Peripheral pulses intact. ASSESSMENT Chronic persistent atrial fibrillation with rapid ventricular response, resolved Gastrointestinal bleed secondary to colon mass status post colectomy Hypertension Dyslipidemia PLAN Continue current medical regimen. We will continue to follow and make recommendations accordingly. If hemoglobin continues to drop anticoagulation may need to be held. Nurse Practitioner note has been reviewed, I agree with a documented findings and plan of care. Patient was seen and examined. Objective - Vital Signs Vital signs: Vital Signs Temp 98.6 F 03/21/18 07:33 Pulse 98 03/21/18 07:33 Resp 16 03/21/18 07:33 BP 119/66 03/21/18 07:33 Pulse Ox 96 03/21/18 07:33 Intake & Output 03/20/18 03/21/18 03/21/18 18:59 06:59 18:59 Intake Total 095.905 4543 Output Total 2 Balance 701.206 6228 -2 Intake: Intake, IV Titration 848.025 1075 Amount Amino Acid 4.25%-D10w+ 520 Lytes*E* 1,000 ml @ 65 mls/hr IV .BY DURATION [facility] Rx#:[id number] Mvi, Adult No.4 with Vit 957.667 520 K 10 ml Trace (Conc-1Ml/ Dose) 1 ml Potassium Chloride 20 meq In Amino Acid 4.25%-D10w+Lytes*E* 1,000 ml @ 65 mls/hr IV . BY DURATION [facility] Rx#: [id number] Sodium Chloride 0.9% 1, 700 000 ml @ 100 mls/hr IV . Q10H [facility] Rx#:[id number] Oral 0 615 Output: Stool 2 Other: Voiding Method Bedside Commode Diaper # Voids 1 5 # Bowel Movements 1 2 2 - Labs CBC & Chem 7: 03/21/18 07:27 03/21/18 07:27 Labs: Abnormal Lab Results - Last 24 Hours (Table) 03/20/18 03/20/18 03/21/18 Range/Units 17:09 20:33 07:27 RBC (3.80-5.40) m/uL Hgb (11.4-16.0) gm/dL Hct (34.0-46.0) % MCV (80.0-100.0) fL MCH (25.0-35.0) pg MCHC (31.0-37.0) g/dL RDW (11.5-15.5) % Lymphocytes # (1.0-4.8) k/uL Sodium 135 L (137-145) mmol/L Chloride 108 H (98-107) mmol/L BUN 23 H (7-17) mg/dL Glucose 108 H (74-99) mg/dL POC Glucose (mg/dL) 134 H 141 H (75-99) mg/dL Calcium 7.9 L (8.4-10.2) mg/dL 03/21/18 Range/Units 07:27 RBC 3.05 L (3.80-5.40) m/uL Hgb 7.3 L (11.4-16.0) gm/dL Hct 23.7 L (34.0-46.0) % MCV 77.7 L (80.0-100.0) fL MCH 23.9 L (25.0-35.0) pg MCHC 30.8 L (31.0-37.0) g/dL RDW 17.8 H (11.5-15.5) % Lymphocytes # 0.8 L (1.0-4.8) k/uL Sodium (137-145) mmol/L Chloride (98-107) mmol/L BUN (7-17) mg/dL Glucose (74-99) mg/dL POC Glucose (mg/dL) (75-99) mg/dL Calcium (8.4-10.2) mg/dL
--- NOTE | 2018-03-21 14:24 | P.PN ---
Subjective Progress Note Date: 03/21/18 Patient seen and examined at bedside. Abdominal distention greatly improved per nursing. The patient has had multiple bowel movements that are liquid. The patient also states that her nausea has greatly improved. She has not had any emesis over the past 24 hours. Objective - Vital Signs Vital signs: Vital Signs Temp 98.8 F 03/21/18 13:56 Pulse 60 03/21/18 13:56 Resp 16 03/21/18 13:56 BP 142/81 03/21/18 13:56 Pulse Ox 95 03/21/18 13:56 Intake & Output 03/20/18 03/21/18 03/21/18 18:59 06:59 18:59 Intake Total 838.999 4783 Output Total 2 Balance 395.297 4288 -2 Intake: Intake, IV Titration 879.239 5904 Amount Amino Acid 4.25%-D10w+ 520 Lytes*E* 1,000 ml @ 65 mls/hr IV .BY DURATION [facility] Rx#:[id number] Mvi, Adult No.4 with Vit 957.667 520 K 10 ml Trace (Conc-1Ml/ Dose) 1 ml Potassium Chloride 20 meq In Amino Acid 4.25%-D10w+Lytes*E* 1,000 ml @ 65 mls/hr IV . BY DURATION [facility] Rx#: [id number] Sodium Chloride 0.9% 1, 700 000 ml @ 100 mls/hr IV . Q10H [facility] Rx#:[id number] Oral 0 615 Output: Stool 2 Other: Voiding Method Bedside Commode Diaper # Voids 1 5 # Bowel Movements 1 2 2 - Constitutional General appearance: Present: cooperative, no acute distress - Respiratory Details: No difficulty with respiration - Gastrointestinal Gastrointestinal Comment(s): Soft, appropriate tenderness, nondistended, no rebound, no guarding, midline incision clean, dry and intact with lesvia in place - Musculoskeletal Musculoskeletal: Present: generalized weakness - Psychiatric Psychiatric: Present: A&O x's 3 - Labs CBC & Chem 7: 03/21/18 07:27 03/21/18 07:27 Labs: Abnormal Lab Results - Last 24 Hours (Table) 03/20/18 03/20/18 03/21/18 Range/Units 17:09 20:33 07:27 RBC (3.80-5.40) m/uL Hgb (11.4-16.0) gm/dL Hct (34.0-46.0) % MCV (80.0-100.0) fL MCH (25.0-35.0) pg MCHC (31.0-37.0) g/dL RDW (11.5-15.5) % Lymphocytes # (1.0-4.8) k/uL Sodium 135 L (137-145) mmol/L Chloride 108 H (98-107) mmol/L BUN 23 H (7-17) mg/dL Glucose 108 H (74-99) mg/dL POC Glucose (mg/dL) 134 H 141 H (75-99) mg/dL Calcium 7.9 L (8.4-10.2) mg/dL 03/21/18 Range/Units 07:27 RBC 3.05 L (3.80-5.40) m/uL Hgb 7.3 L (11.4-16.0) gm/dL Hct 23.7 L (34.0-46.0) % MCV 77.7 L (80.0-100.0) fL MCH 23.9 L (25.0-35.0) pg MCHC 30.8 L (31.0-37.0) g/dL RDW 17.8 H (11.5-15.5) % Lymphocytes # 0.8 L (1.0-4.8) k/uL Sodium (137-145) mmol/L Chloride (98-107) mmol/L BUN (7-17) mg/dL Glucose (74-99) mg/dL POC Glucose (mg/dL) (75-99) mg/dL Calcium (8.4-10.2) mg/dL Assessment and Plan (1) Colonic mass Narrative/Plan: 82-year-old female with cecal mass, postoperative day #6 from right hemicolectomy - Patient is doing well today, improved from over the weekend per nursing - Advance to full liquid diet due to improved nausea and emesis - Continue to increase activity, I did discuss up to chair with nursing today, I also did discuss the importance of increased activity with the patient - Patient is having adequate bowel function - Anticoagulation can be resumed - Progressing slowly Current Visit: Yes Status: Acute Code(s): K63.9 - DISEASE OF INTESTINE, UNSPECIFIED SNOMED Code(s): 442573041
[2018-03-21] MEDS: LACTATED RINGERS 1,000 ML IV SCH ×2 (14:29→17:59)
[2018-03-21] MEDS: POTASSIUM CHLORIDE 10 MEQ in WATER FOR INJECTION 1 100ML.BAG IVPB SCH ×2 (14:38→15:56)
--- NOTE | 2018-03-21 15:28 | XR ---
EXAMINATION TYPE: XR abdomen complete w decub DATE OF EXAM: 03/21/2018 COMPARISON: NONE HISTORY: Pain TECHNIQUE: Supine, upright, and left side down lateral decubitus views of the abdomen are obtained. FINDINGS: There are numerous dilated small bowel loops with air-fluid levels. Bilateral basilar conso lidation and small bilateral pleural effusion. Hypertrophic and degenerative change of the spine. Morena gical lesvia are noted. Could not exclude a small amount of free intraperitoneal air. Tip of a ashvin ter seen overlying the cavoatrial junction in the chest. IMPRESSION: 1. Numerous dilated small bowel loops. Ileus versus obstruction. A small amount of free air is sugges kaylee. Report called to patient's nurse. Correlate with CT scan recommended. 2. Bilateral lower lobe infiltrate and small effusion
[2018-03-21] MEDS: MAGNESIUM SULFATE-D5W PMX 1 GM in DEXTROSE/WATER 1 100ML.BAG IVPB SCH ×2 (17:52→21:39)
--- NOTE | 2018-03-21 20:44 | PN ---
PROGRESS NOTE DATE OF SERVICE: 03/21/2018 This is an 82-year-old white female who was brought to the emergency room with severe weakness and GI bleeding and the patient's hemoglobin in the ER was 4.6, and she was admitted to ICU. She was transfused with multiple units of blood and her hemoglobin came up to 8.6, and when her cardiac and GI condition became stable, she was transferred out of ICU. The patient was also seen by Order [facility]er and she had a colonoscopy done and this showed mass in the cecum and the patient was seen by the surgeon, and the patient was recommended to have surgery. Patient has a history of chronic atrial fibrillation and she has been on Eliquis. This was discontinued and patient was seen by [facility] and they were following the patient. The patient had a right hemicolectomy. 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 Apparently today, patient seemed to have some nausea, but she had a bowel movement today and nausea being controlled with the Zofran IV. Otherwise her vital signs stable. She has a rapid ventricular rate and she is still in atrial fibrillation. The patient is being followed by [facility] and also the surgeon. Otherwise, her condition is stable. Prognosis is guarded. MMODL / IJN: [id number] /
[2018-03-21] MEDS: ATORVASTATIN 20 MG TAB PO SCH (21:37)
[2018-03-22] MEDS: 1: MVI, ADULT NO.4 WITH VIT K 10 ML, TRACE (CONC-1ML/DOSE) 1 ML, POTASSIUM CHLORIDE 30 M IV SCH ×10 (00:47→17:51)
[2018-03-22] MEDS: METOCLOPRAMIDE 5 MG/ML 2 ML VIAL IVP SCH ×3 (05:47→17:56)
[2018-03-22 07:13] LABS: Anisocytosis Slight; Basophils % (A) 0 %; Eosinophils # (A) 0.2 k/uL (0-0.7); Eosinophils % (A) 2 %; HGB 7.7 gm/dL (11.4-16.0); Hypochromasia Marked; Lymphocytes # (A) 0.8 k/uL (1.0-4.8); Lymphocytes % (A) 9 %; MCH 23.8 pg (25.0-35.0); MCHC 30.9 g/dL (31.0-37.0); MCV 77.1 fL (80.0-100.0); Mean Platelet Volume 6.8; Microcytosis Slight; Monocytes # (A) 0.6 k/uL (0-1.0); Monocytes % (A) 7 %; Neutrophils # (A) 7.1 k/uL (1.3-7.7); Neutrophils % (A) 80 %; Platelet Count 445 k/uL (150-450); Poikilocytosis Moderate; RBC 3.24 m/uL (3.80-5.40); RDW 17.9 % (11.5-15.5); WBC 8.8 k/uL (3.8-10.6)
[2018-03-22 07:19] LABS: Calcium 8.3 mg/dL (8.4-10.2); Magnesium 1.9 mg/dL (1.6-2.3); Phosphorus 4.4 mg/dL (2.5-4.5); Potassium 4.1 mmol/L (3.5-5.1)
[2018-03-22] MEDS: PANTOPRAZOLE 40 MG/10 ML VIAL IVP SCH ×2 (08:58→21:57)
[2018-03-22] MEDS: APIXABAN 2.5 MG TABLET PO SCH ×2 (08:59→22:06)
[2018-03-22] MEDS: VERAPAMIL 80 MG TAB PO SCH (08:59)
[2018-03-22] MEDS: METOPROLOL TARTRATE 50 MG TAB PO SCH ×2 (08:59→21:56)
[2018-03-22] MEDS: FAT EMULSION 20% 250 ML IV SCH (09:00)
--- NOTE | 2018-03-22 09:45 | P.PN ---
Subjective Progress Note Date: 03/22/18 Patient seen and examined at bedside. I was called yesterday due to patient having emesis episode after full liquid diet. Abdominal x-ray and chest x-ray were performed with dilation of the small bowel noted and ileus more likely. The patient was made nothing by mouth at that time. The patient states she is feeling better today. She states that she had 2 bowel movements this morning. She also states that she is passing flatus. She denies any abdominal pain and states when she has discomfort it is from the incision line. Objective - Vital Signs Vital signs: Vital Signs Temp 98.1 F 03/22/18 07:35 Pulse 70 03/22/18 07:35 Resp 16 03/22/18 00:40 BP 108/71 03/22/18 07:35 Pulse Ox 99 03/22/18 07:35 Intake & Output 03/21/18 03/22/18 03/22/18 18:59 06:59 18:59 Intake Total 240 540 Output Total 2 Balance 238 540 Weight 63.44 kg Intake: Intake, IV Titration 520 Amount Amino Acid 4.25%-D10w+ 520 Lytes*E* 1,000 ml @ 65 mls/hr IV .BY DURATION [facility] Rx#:[id number] Oral 240 20 Output: Stool 2 Other: Voiding Method Bedside Commode Diaper # Voids 1 4 # Bowel Movements 2 2 - Constitutional General appearance: Present: cooperative - EENT ENT: Present: hearing grossly normal - Respiratory Details: No difficulty with respiration - Gastrointestinal Gastrointestinal Comment(s): Soft, mild distention, appropriate tenderness, no rebound tenderness, no guarding - Psychiatric Psychiatric: Present: A&O x's 3 - Labs CBC & Chem 7: 03/22/18 06:10 03/22/18 06:10 Labs: Abnormal Lab Results - Last 24 Hours (Table) 03/22/18 03/22/18 Range/Units 06:10 06:10 RBC 3.24 L (3.80-5.40) m/uL Hgb 7.7 L (11.4-16.0) gm/dL Hct 25.0 L (34.0-46.0) % MCV 77.1 L (80.0-100.0) fL MCH 23.8 L (25.0-35.0) pg MCHC 30.9 L (31.0-37.0) g/dL RDW 17.9 H (11.5-15.5) % Lymphocytes # 0.8 L (1.0-4.8) k/uL Sodium 133 L (137-145) mmol/L Carbon Dioxide 21 L (22-30) mmol/L BUN 27 H (7-17) mg/dL Glucose 118 H (74-99) mg/dL Calcium 8.3 L (8.4-10.2) mg/dL Assessment and Plan (1) Colonic mass Narrative/Plan: 82-year-old female with cecal mass, postoperative day #7 from right hemicolectomy - The patient does appear to have an ileus, this is common after laparotomy procedures - Continue nothing by mouth, NG tube placement was attempted by nursing staff with no success due to deviated septum and epistaxis, NG tube placement was then aborted - Continue to increase activity - Patient appears to be having adequate bowel function - I did review imaging. Per radiology, there is uncertainty whether pneumoperitoneum is still present within the abdomen. This can be common postoperative finding after laparotomy. The patient is not having any peritoneal abdominal pain, has not had leukocytosis over the past week and has not had any febrile episodes. The patient has had some tachycardic episodes, however this has been associated with her history of atrial fibrillation. At this time, we will continue to observe and treat as an ileus. If any change in symptoms, we will obtain a CT of the abdomen and pelvis. - Progressing slowly - Prognosis guarded Current Visit: Yes Status: Acute Code(s): K63.9 - DISEASE OF INTESTINE, UNSPECIFIED SNOMED Code(s): 652172082
--- NOTE | 2018-03-22 09:50 | CDI ---
Last Revision, April 2017 Documentation Clarification Form Date: 03/22/18 From: Obdulia Wheeler RN Admit Date: 03/09/2018 9:16:00 PM Patient Name: Radha Del Angel Visit Number: [id number] ATTENTION: The Clinical Documentation Specialists (CDI) and [employer] Coding Staff appreciate your assistance in clarifying documentation. Please respond to the clarification below the line at the bottom and electronically sign. The CDI & [employer] Coding staff will review the response and follow-up if needed. Please note: Queries are made part of the Legal Health Record. If you have any questions, please contact the author of this message via ITS. Dr. Renato Henning MD, Can you please render your opinion on the following documentation? Pt. was admitted with GI bleed and anemia History/Risk Factors: CVA, cerebral hemorrhage, HTN, cardiovascular disease, chronic A FIB, GI bleeding, paroxysmal chronic a fib, chronic renal failure, hyperlipidemia Clinical Indicators: Labs: Albumin 3.3,Total Protein 5.9 Current BMI: 23.3 Insufficient energy intake: Per RD yes Weight Loss: none noted Decreased hand cutter out strength: yes, generalized weakness charted Per RD notes patient is pale and lethargic with altered GI function Treatment: Dietary Consult: Yes RD Supplements/TPN: Ensure Enlive TID Lab monitoring In your professional opinion, can you please clarify if these findings signify one of the following conditions? Mild Protein-Calorie Malnutrition Moderate Protein-Calorie Malnutrition Malnutrition following GI surgery Malnutrition, Unspecified Other condition, please specify Unable to determine MTDD
--- NOTE | 2018-03-22 10:27 | P.PN ---
Subjective This is a pleasant 82-year-old female past medical history significant for hypertension and chronic atrial fibrillation presented to the hospital with acute GI bleed and was found to have a mass in her colon for which she underwent a colectomy. She is seen and examined laying flat in bed sleeping. Her anticoagulation has been resumed. She denies symptoms of chest pain, shortness of breath, dizziness or palpitations. She complains of nausea this morning. Her heart rates have been elevated over the night. Blood pressure today 108/71 heart rate 70 afebrile and maintaining oxygen saturation on room air. Laboratory data reviewed, hemoglobin 7.7, platelets 445, sodium 133, potassium 4.1, creatinine 0.8. Chest and abdominal x-rays obtained yesterday revealed bilateral consolidation with mild central venous congestion a possibility with evidence of numerous dilated small bowel loops, ileus versus obstruction with a small amount of free air. Clinically she is euvolemic with no symptoms of fluid overload. GENERAL: Well-appearing, well-nourished and in no acute distress. NECK: Supple without JVD or thyromegaly. LUNGS: Breath sounds clear to auscultation bilaterally. Respiration equal and unlabored. No wheezes, rales or rhonchi. HEART: Irregular rate and rhythm with systolic ejection murmur at the left sternal border, no rubs or gallops. S1 and S2 heard. EXTREMITIES: Normal range of motion, no edema. No clubbing or cyanosis. Peripheral pulses intact. ASSESSMENT Chronic persistent atrial fibrillation with rapid ventricular response Gastrointestinal bleed secondary to colon mass status post colectomy Hypertension Dyslipidemia PLAN Increase verapamil to 120 mg TID for better control of her heart rate. Hemoglobin is stable. We will continue to follow as needed, please feel free to call with further question or concerns. Follow up with Dr. Diaz upon discharge. Nurse Practitioner note has been reviewed, I agree with a documented findings and plan of care. Patient was seen and examined. Objective - Vital Signs Vital signs: Vital Signs Temp 98.1 F 03/22/18 07:35 Pulse 70 03/22/18 07:35 Resp 16 03/22/18 00:40 BP 108/71 03/22/18 07:35 Pulse Ox 99 03/22/18 07:35 Intake & Output 03/21/18 03/22/18 03/22/18 18:59 06:59 18:59 Intake Total 240 540 Output Total 2 Balance 238 540 Weight 63.44 kg Intake: Intake, IV Titration 520 Amount Amino Acid 4.25%-D10w+ 520 Lytes*E* 1,000 ml @ 65 mls/hr IV .BY DURATION [facility] Rx#:[id number] Oral 240 20 Output: Stool 2 Other: Voiding Method Bedside Commode Diaper # Voids 1 4 # Bowel Movements 2 2 - Labs CBC & Chem 7: 03/22/18 06:10 03/22/18 06:10 Labs: Abnormal Lab Results - Last 24 Hours (Table) 03/22/18 03/22/18 Range/Units 06:10 06:10 RBC 3.24 L (3.80-5.40) m/uL Hgb 7.7 L (11.4-16.0) gm/dL Hct 25.0 L (34.0-46.0) % MCV 77.1 L (80.0-100.0) fL MCH 23.8 L (25.0-35.0) pg MCHC 30.9 L (31.0-37.0) g/dL RDW 17.9 H (11.5-15.5) % Lymphocytes # 0.8 L (1.0-4.8) k/uL Sodium 133 L (137-145) mmol/L Carbon Dioxide 21 L (22-30) mmol/L BUN 27 H (7-17) mg/dL Glucose 118 H (74-99) mg/dL Calcium 8.3 L (8.4-10.2) mg/dL
--- NOTE | 2018-03-22 16:37 | XR ---
EXAMINATION TYPE: XR abdomen complete w decub DATE OF EXAM: 03/22/2018 COMPARISON: Radiographs 03/21/2018 at 3:08 PM HISTORY: Ileus TECHNIQUE: 2 supine, upright, and left lateral decubitus views of the abdomen obtained. FINDINGS: The study is positive for pneumoperitoneum, greater in its volume than the prior study 23 h ours ago. The air-dilated loops of bowel throughout the 4 quadrants are slightly less distended on today's stud y, but nearly unchanged in caliber. IMPRESSION: PNEUMOPERITONEUM, GREATER IN VOLUME THAN THE STUDY 23 HOURS AGO. Results discussed just now with the patient's nurse Liv, in order to help expedite management d ecision making.
[2018-03-22] MEDS ORDERED: IOPAMIDOL-300 CONTRAST 30 ML VIAL (ORAL USE) PO PRN (17:00)
--- NOTE | 2018-03-22 17:04 | P.PN ---
Progress Note - Text Progress Note Date: 03/22/18 Evaluation with AXR revealed possibly increased pneumoperitoneum. I discussed pt with nursing. Pt has had 3 bowel movements today and denying any abdominal pain. Vitals have been stable with no febrile episodes and no hypotension. She has been in and out of AFib with some tachycardia at times. She is denying any abdominal pain. We will evaluate further with CT with PO and IV contrast to eval for leak and to make any further surgical decisions.
[2018-03-22] MEDS: VERAPAMIL 40 MG TAB PO SCH ×2 (17:37→23:36)
[2018-03-22] MEDS: LACTATED RINGERS 1,000 ML IV SCH (17:50)
--- NOTE | 2018-03-22 20:49 | CT ---
EXAMINATION TYPE: CT abdomen pelvis w con DATE OF EXAM: 03/22/2018 COMPARISON: CT 03/13/2018 HISTORY: Pneumoperitoneum and eval for leak. CT DLP: 824.8 mGycm Automated exposure control for dose reduction was used. TECHNIQUE: Helical acquisition of images was performed from the lung bases through the pelvis. CONTRAST: Performed with Oral Contrast and with IV Contrast, patient injected with 100 mL of Isovue 3 00. FINDINGS: Oral contrast opacifies the stomach, duodenum, and jejunum, but not the ileum or colon. Wanda stomosis appears to be at the umbilicus level, just left of midline. Pneumoperitoneum is confirmed; i t is mild-moderate in its volume. There is also a mild volume of peritoneal fluid. Nearly all of the pneumoperitoneum is seen at or above the level of the anastomosis. The jejunal loops are dilated in caliber, the ileal loops are less dilated in caliber. The colon is n ondilated. There is a tiny volume of nondependent air is seen within the urinary bladder, presumably due to rece nt instrumentation. The solid viscera and the vasculature are negative for acute findings. Limitations: There is mild patient motion artifact obscuring detail. Also obscuring anatomic detail a re the several unopacified loops of bowel, distal to the jejunum. IMPRESSION: POSITIVE FOR PNEUMOPERITONEUM.
--- NOTE | 2018-03-22 21:49 | PN ---
PROGRESS NOTE DATE OF SERVICE: 03/22/2018. HISTORY: This is an 82-year-old white female who was admitted to the hospital with acute GI bleeding and with extremely low hemoglobin. At the time of admission her hemoglobin was 4.7. She was initially admitted to the ICU and she was seen by Dr. Sanchez in consultation and for ICU management. The patient also has longstanding history of atrial fibrillation and she has been on Eliquis. This was discontinued. The patient was also seen by [facility] in consultation. A gastroenterology consultation was obtained and she had a colonoscopy and was found to have a cecal mass. Surgical consultation was obtained and she was seen by Dr. 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 The lymph nodes were negative. The margin of resection was negative. The patient received multiple transfusions prior to surgery and currently the patient has been started back on Eliquis and placed back on his previous medications. For the last 2 days the patient was having some nausea and it was found to be due to ileus of the bowel. Today she is feeling better. Her hemoglobin is staying stable, and today her hemoglobin is 7.7. The patient is alert and fairly comfortable. Heart is in atrial fibrillation. The patient had a slightly rapid ventricular rate and Cardiology has increased the dose of Cardizem. Overall prognosis is guarded. Clinically she is getting better. Cardiology and the surgeon are following the patient. We will also closely monitor her hemoglobin. Prognosis is guarded. MMODL / IJN: [id number] /
[2018-03-22] MEDS: ATORVASTATIN 20 MG TAB PO SCH (21:57)
[2018-03-23] MEDS: METOCLOPRAMIDE 5 MG/ML 2 ML VIAL IVP SCH ×2 (00:41→05:50)
[2018-03-23] MEDS ORDERED: PROPOFOL 10 MG/ML 20 ML VIAL IV ONE (05:57)
[2018-03-23] MEDS ORDERED: PHENYLEPHRINE-0.9% NACL SYG 1 MG/10 ML SYRINGE ONE (05:57)
[2018-03-23] MEDS ORDERED: MIDAZOLAM 2 MG/2 ML VIAL ONE (05:57)
[2018-03-23] MEDS ORDERED: NEOSTIGMINE 1 MG/ML 10 ML VIAL ONE (05:57)
[2018-03-23] MEDS ORDERED: ROCURONIUM BROMIDE 10 MG/ML 10 ML VIAL IV ONE (05:57)
[2018-03-23] MEDS ORDERED: GLYCOPYRROLATE 0.2 MG/ML 2 ML VIAL ONE (05:57)
[2018-03-23] MEDS ORDERED: fentaNYL (PF) 50 MCG/ML 2 ML AMP ONE (05:57)
[2018-03-23] MEDS ORDERED: SUCCINYLCHOLINE CHLORIDE 100 MG/5 ML SYR IV ONE (05:57)
[2018-03-23] MEDS ORDERED: LACTATED RINGERS 1,000 ML IV ONE (05:57)
[2018-03-23] MEDS ORDERED: SODIUM CHLORIDE 0.9% 50 ML with ceFAZolin 2,000 MG IV ONE ×4 (06:26)
[2018-03-23] MEDS ORDERED: METOCLOPRAMIDE 5 MG/ML 2 ML VIAL IVP PRN (07:58)
--- NOTE | 2018-03-23 08:18 | P.OP ---
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 Postoperatively, the patient initially improved but did have a picture of an ileus. Abdominal x-rays were performed that did show a possible expanding pneumoperitoneum. Due to this, plan for exploratory laparotomy was made to evaluate the anastomotic site. The case was discussed with the patient in depth. Risks, benefits and alternatives were provided to the patient. The patient did provide consent prior to attending the operating suite. Operative Findings: Turbid fluid Questionable or possible anastomotic leak Description of Procedure: The patient was brought to the operating suite and placed in supine position on the operating table. Sedation was provided by anesthesia and the patient underwent endotracheal intubation. Martínez catheter was placed and the patient was prepped and draped in regular sterile fashion. The previous incision site was opened and the previous fascial suture was cut and the abdomen was entered. Some mild turbid fluid was noted within the abdomen. There was no evidence of succus or stool. There were no exudative changes. The small bowel was run from the ligament of Treitz towards the anastomosis. The bowel was noted to be dilated, likely secondary to the ileus with no evidence of perforation. The anastomosis was then examined. There did not appear to be any exudative changes. The anastomosis was then placed under fluid and was compressed to evaluate for any leakage of air or bubbles. There was no evidence of any leakage of air or bubbles when this was performed. The rest of the colon was then examined with no significant finding for perforation. At this point, it was unclear whether a small anastomotic leak had healed, however the anastomosis did appear to be healing well and was healthy with no ischemic changes. It was decided to place a loop ileostomy as a diverting point to allow the anastomosis to heal. A loop ileostomy site was chosen on the right lower quadrant. A circular incision was made and dissection was carried to the fascia. A cruciate incision was made on the fascia and 2 fingers were able to dilate the fascial defect. A loop of the ileum was then pulled through this defect to create the ileostomy. The abdomen was then further irrigated and suctioned. The fascial layer was closed with a looped PDS suture in running fashion. Skin incision was closed with skin lesvia. The ileostomy site was then matured in standard Arcelia fashion. This was done over a red rubber catheter as a bridge. Sterile dressings were applied. The patient was awakened in the operating suite and taken to postanesthesia care unit in stable condition.
[2018-03-23] MEDS: HYDROmorphone 1 MG/ML 1 ML SYRINGE IVP PRN ×2 (10:20→16:34)
[2018-03-23] MEDS: METOPROLOL TARTRATE 50 MG TAB PO SCH ×2 (10:24→22:09)
[2018-03-23] MEDS: PANTOPRAZOLE 40 MG/10 ML VIAL IVP SCH ×2 (10:24→22:10)
[2018-03-23] MEDS: APIXABAN 2.5 MG TABLET PO SCH ×2 (10:24→22:01)
[2018-03-23] MEDS: PIPERACILLIN-TAZOBACTAM 3.375 GM in SODIUM CHLORIDE 0.9% 100 ML IVPB SCH ×2 (10:25→22:14)
[2018-03-23] MEDS: FAT EMULSION 20% 250 ML IV SCH (10:25)
[2018-03-23] MEDS: VERAPAMIL 40 MG TAB PO SCH ×3 (10:48→23:29)
[2018-03-23 11:02] LABS: Anisocytosis Slight; Basophils % (A) 0 %; Eosinophils # (A) 0.1 k/uL (0-0.7); Eosinophils % (A) 1 %; HCT 29.3 % (34.0-46.0); HGB 8.6 gm/dL (11.4-16.0); Hypochromasia Marked; Lymphocytes # (A) 0.4 k/uL (1.0-4.8); Lymphocytes % (A) 3 %; MCH 22.8 pg (25.0-35.0); MCHC 29.3 g/dL (31.0-37.0); MCV 77.9 fL (80.0-100.0); Mean Platelet Volume 6.7; Microcytosis Slight; Monocytes # (A) 0.5 k/uL (0-1.0); Monocytes % (A) 4 %; Neutrophils % (A) 92 %; Platelet Count 550 k/uL (150-450); Poikilocytosis Moderate; RBC 3.76 m/uL (3.80-5.40); RDW 18.1 % (11.5-15.5); WBC 13.1 k/uL (3.8-10.6)
[2018-03-23 11:11] LABS: Calcium 8.3 mg/dL (8.4-10.2); Magnesium 1.6 mg/dL (1.6-2.3); Phosphorus 4.7 mg/dL (2.5-4.5); Potassium 4.3 mmol/L (3.5-5.1)
[2018-03-23] MEDS: MAGNESIUM SULFATE-D5W PMX 1 GM in DEXTROSE/WATER 1 100ML.BAG IVPB SCH ×2 (16:39→18:25)
[2018-03-23 17:21] LABS: Iron Saturation 3.31 (12.00-45.00)
--- NOTE | 2018-03-23 18:07 | P.CONS ---
History of Present Illness - Reason for Consult Consult date: 03/23/18 well differentiated colon adenocarcinoma Requesting physician: Марина Antonio - Chief Complaint rectal pain, GI bleeding - History of Present Illness Ms. Del Angel is a very pleasant 82year old female who we have been asked to see for her recent resection of a T2 N0 colon adenocarcinoma. Pt is just back from surgery, a little tired, abd is uncomfortable post op, NG tube is irritating and she is finding it hard to talk. She confirms that she had rectal bleeding and rectal pain for a few weeks, she was getting more tired, appetite was down, thinks she lost a little weight, denied known fevers, sweats, dysphagia, abd distension, lower extremity swelling or other pain. 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 Chronic renal failure, hypertension, hyperlipidemia, hypothyroidism, history of rheumatic fever, history of scarlet fever, History of Any Multi-Drug Resistant Organisms: None Reported Past Surgical History: Adenoidectomy, Tonsillectomy Additional Past Surgical History / Comment(s): part of thyroid removed Past Anesthesia/Blood Transfusion Reactions: Unable to Obtain Additional Past Anesthesia/Blood Transfusion Reaction / Comm: patient states she had a hard time waking up after having anesthesia Past Psychological History: Unable to Obtain Smoking Status: Never smoker Past Alcohol Use History: None Reported Past Drug Use History: None Reported - Past Family History Father Family Medical History: No Reported History Additional Family Medical History / Comment(s): parkinsons Mother History Unknown: Yes Family Medical History: Cancer, Diabetes Mellitus Additional Family Medical History / Comment(s): colon cancer Sister(s) Additional Family Medical History / Comment(s): breast cancer Medications and Allergies Home Medications Medication Instructions Recorded Confirmed Type Levothyroxine Sodium [Synthroid] 125 mcg PO DAILY 08/31/15 03/09/18 History Ergocalciferol (Vitamin D2) 50,000 unit PO Q30D 05/12/17 03/09/18 History [Vitamin D2] Apixaban [Eliquis] 2.5 mg PO BID 12/17/17 03/09/18 History Atorvastatin [Lipitor] 20 mg PO HS tab 12/28/17 03/09/18 Rx Metoprolol Tartrate [Lopressor] 50 mg PO TID tab 12/28/17 03/09/18 Rx Pantoprazole [Protonix] 40 mg PO DAILY tablet. 12/28/17 03/09/18 Rx amLODIPine [Norvasc] 5 mg PO DAILY tab 12/28/17 03/09/18 Rx Allergies Allergy/AdvReac Type Severity Reaction Status Date / Time codeine Allergy Rash/Hives Verified 03/15/18 10:08 ciprofloxacin AdvReac Diarrhea Verified 03/15/18 10:08 Physical Exam Vitals: Vital Signs Temp Pulse Pulse Resp BP Pulse Ox 03/23/18 08:00 74 18 140/65 94 L 03/23/18 07:45 70 18 138/63 98 03/23/18 07:30 68 16 132/60 100 03/23/18 07:24 98 F 65 12 127/59 100 03/22/18 23:32 97.9 F 73 16 130/59 98 03/22/18 21:55 126/77 03/22/18 19:35 97.8 F 74 16 100/53 97 03/22/18 15:15 98.7 F 68 109/68 98 Intake and Output 03/22/18 03/23/18 03/23/18 22:59 06:59 14:59 Intake Total 100 100 Output Total 65 Balance 100 35 Intake: IV 100 100 Output: Urine 50 Estimated Blood Loss 15 Other: # Voids 1 # Bowel Movements 1 - Constitutional General appearance: average body habitus, cooperative, mild distress - EENT Eyes: anicteric sclerae, EOMI, normal appearance ENT: hearing grossly normal, normal oropharynx - Neck Neck: no lymphadenopathy - Respiratory Respiratory: bilateral: CTA - Cardiovascular Rhythm: regular Heart sounds: normal: S1, S2 Abnormal Heart Sounds: no systolic murmur, no diastolic murmur, no rub, no S3 Gallop, no S4 Gallop, no click, no other leg Peripheral Edema: bilateral: None - Gastrointestinal fresh surgical dressing, no gross drainage noted General gastrointestinal: absent bowel sounds, soft - Integumentary Integumentary: pale - Musculoskeletal Musculoskeletal: generalized weakness - Psychiatric Psychiatric: A&O x's 3, appropriate affect, intact judgment & insight Results CBC & Chem 7: 03/23/18 10:31 03/23/18 10:31 Abdominal x-ray: report reviewed CT scan - abdomen: report reviewed CT scan - pelvis: report reviewed Assessment and Plan (1) Colon adenocarcinoma Narrative/Plan: S/P resection with path reporting no perforation, well differentiated adenocarcinoma with 20/20 LN negative for mets. Pt is staged as a T2N0 malignancy, no need for adjuvant treatment. Discussed with pt and will call Latasha per pt request. No further intervention from Oncology Current Visit: Yes Status: Acute Priority: High Code(s): C18.9 - MALIGNANT NEOPLASM OF COLON, UNSPECIFIED SNOMED Code(s): 618782733 (2) Microcytic hypochromic anemia Narrative/Plan: Due to acute on chronic blood loss. Work up ordered, recommendations to follow. Current Visit: Yes Status: Acute Priority: Medium Code(s): D50.9 - IRON DEFICIENCY ANEMIA, UNSPECIFIED SNOMED Code(s): 54659215
[2018-03-23] MEDS: 1: MVI, ADULT NO.4 WITH VIT K 10 ML, TRACE (CONC-1ML/DOSE) 1 ML, SODIUM ACETATE 30 MEQ, IV SCH ×7 (19:38)
[2018-03-23] MEDS: LACTATED RINGERS 1,000 ML IV SCH (19:52)
--- NOTE | 2018-03-23 20:23 | PN ---
PROGRESS NOTE DATE OF SERVICE: 03/23/2018 This is an 82-year-old white female who had who had a right hemicolectomy for a cecal mass and this was found to be invasive adenocarcinoma and the patient postoperatively was improving without any complication, but yesterday patient had nausea and vomiting and the CT of the abdomen showed increasing pneumoperitoneum and the patient went for surgery this morning by Dr. Antonio and there were no significant leakage or oozing noted by Dr. Antonio in the ostomy and postoperatively, the patient is doing well with stable vital signs and hemoglobin today was 7.7, which is slightly higher than yesterday and the patient also has been started on TPN. The patient apparently came to the ER with severe GI bleeding and severe blood loss anemia. Her hemoglobin in the ER was 4.7, and the patient was admitted to the hospital. Initially admitted to the ICU. Dr. Sanchez saw the patient for ICU management and the patient was also seen by [facility]. When her condition became stable, she underwent a colonoscopy and the patient was found to have a cecal mass and then she had a right hemicolectomy. The patient received multiple blood transfusions and she has a history of chronic atrial fibrillation and has been on Eliquis and she was being followed by [facility]. The patient also has a previous history of intracranial hemorrhage and recurrent TIA and CVAs, and the patient was admitted because of GI bleeding and Eliquis was discontinued. Currently, after the surgery as she was not bleeding any more she was started back on Eliquis. Today, the patient was examined, but she is extremely lethargic and sleepy of from the anesthesia and her heart is in atrial fibrillation with controlled ventricular rate and there is no clinical evidence of cardiac decompensation and the overall prognosis is guarded. Today, I have discussed the diagnosis, prognosis and therapeutic plans with his sister and everything explained in detail and her questions were also answered. In the mean time, we will continue her current treatments. MMODL / IJN: [id number] /
[2018-03-23] MEDS: ATORVASTATIN 20 MG TAB PO SCH (22:09)
[2018-03-24] MEDS: 1: MVI, ADULT NO.4 WITH VIT K 10 ML, TRACE (CONC-1ML/DOSE) 1 ML, SODIUM ACETATE 30 MEQ, IV SCH ×7 (03:02)
[2018-03-24] MEDS: HYDROmorphone 1 MG/ML 1 ML SYRINGE IVP PRN ×2 (06:00→14:53)
[2018-03-24] MEDS: FAT EMULSION 20% 250 ML IV SCH (08:44)
[2018-03-24] MEDS: SODIUM FERRIC GLUCONAT-SUCROSE 125 MG in SODIUM CHLORIDE 0.9% 100 ML IVPB SCH (08:45)
[2018-03-24] MEDS: PANTOPRAZOLE 40 MG/10 ML VIAL IVP SCH ×2 (08:45→22:39)
[2018-03-24] MEDS: APIXABAN 2.5 MG TABLET PO SCH ×2 (08:46→21:42)
[2018-03-24] MEDS: METOPROLOL TARTRATE 50 MG TAB PO SCH ×2 (08:46→21:42)
[2018-03-24 09:07] LABS: Anisocytosis Slight; Basophils % (A) 0 %; Eosinophils # (A) 0.1 k/uL (0-0.7); Eosinophils % (A) 1 %; HCT 26.3 % (34.0-46.0); HGB 7.9 gm/dL (11.4-16.0); Hypochromasia Marked; Lymphocytes # (A) 0.7 k/uL (1.0-4.8); Lymphocytes % (A) 7 %; MCH 23.2 pg (25.0-35.0); MCHC 30.2 g/dL (31.0-37.0); Mean Platelet Volume 7.1; Microcytosis Slight; Monocytes # (A) 0.7 k/uL (0-1.0); Monocytes % (A) 7 %; Neutrophils # (A) 8.1 k/uL (1.3-7.7); Neutrophils % (A) 84 %; Platelet Count 636 k/uL (150-450); Poikilocytosis Moderate; RBC 3.41 m/uL (3.80-5.40); RDW 18.2 % (11.5-15.5); WBC 9.7 k/uL (3.8-10.6)
[2018-03-24 09:25] LABS: Albumin 1.9 g/dL (3.5-5.0); Calcium 7.9 mg/dL (8.4-10.2); Magnesium 2.2 mg/dL (1.6-2.3); Phosphorus 4.2 mg/dL (2.5-4.5); Potassium 4.4 mmol/L (3.5-5.1)
[2018-03-24 09:27] LABS: Ionized Calcium 4.9 mg/dL (4.5-5.3)
[2018-03-24] MEDS: VERAPAMIL 40 MG TAB PO SCH ×3 (10:56→22:55)
--- NOTE | 2018-03-24 14:36 | P.PN ---
Subjective Progress Note Date: 03/24/18 Patient seen and examined at bedside. Appears tired today. NG tube in place with 350 mL of output over night. States her abdomen does feel sore. Objective - Vital Signs Vital signs: Vital Signs Temp 98.3 F 03/24/18 07:50 Pulse 85 03/24/18 07:50 Resp 20 03/24/18 07:50 BP 124/66 03/24/18 07:50 Pulse Ox 94 L 03/24/18 07:50 Intake & Output 03/23/18 03/24/18 03/24/18 18:59 06:59 18:59 Intake Total 550 250 Output Total 915 700 200 Balance -365 -450 -200 Weight 63.44 kg Intake: IV 100 Intake, IV Titration 450 250 Amount Fat Emulsion 20% 250 ml @ 250 20.833 mls/hr IV DAILY [facility] Rx#:[id number] Lactated Ringers 1,000 ml 450 @ 20 mls/hr IV .Q24H [facility] Rx#:[id number] Output: Gastric Drainage 450 350 Urine 450 350 Stool 200 Estimated Blood Loss 15 Other: Voiding Method Indwelling Catheter Indwelling Catheter Indwelling Catheter - Constitutional General appearance: Present: cooperative - Respiratory Details: No difficulty with respiration - Gastrointestinal Gastrointestinal Comment(s): Soft, appropriate tenderness, nondistended, no rebound, no guarding, ostomy in place pink and patent - Psychiatric Psychiatric: Present: A&O x's 3 - Labs CBC & Chem 7: 03/24/18 08:29 03/24/18 08:29 Labs: Abnormal Lab Results - Last 24 Hours (Table) 03/23/18 03/23/18 03/24/18 Range/Units 10:31 10:31 08:29 RBC (3.80-5.40) m/uL Hgb (11.4-16.0) gm/dL Hct (34.0-46.0) % MCV (80.0-100.0) fL MCH (25.0-35.0) pg MCHC (31.0-37.0) g/dL RDW (11.5-15.5) % Plt Count (150-450) k/uL Neutrophils # (1.3-7.7) k/uL Lymphocytes # (1.0-4.8) k/uL Sodium 133 L (137-145) mmol/L Carbon Dioxide 21 L (22-30) mmol/L BUN 24 H (7-17) mg/dL Glucose 124 H (74-99) mg/dL Calcium 7.9 L (8.4-10.2) mg/dL Iron 9 L (50-170) ug/dL Iron Saturation 3.31 L (12.00-45.00) Albumin 1.9 L (3.5-5.0) g/dL RBC Folate 1,135 H (280 - 791) ng/mL 03/24/18 Range/Units 08:29 RBC 3.41 L (3.80-5.40) m/uL Hgb 7.9 L (11.4-16.0) gm/dL Hct 26.3 L (34.0-46.0) % MCV 77.0 L (80.0-100.0) fL MCH 23.2 L (25.0-35.0) pg MCHC 30.2 L (31.0-37.0) g/dL RDW 18.2 H (11.5-15.5) % Plt Count 636 H (150-450) k/uL Neutrophils # 8.1 H (1.3-7.7) k/uL Lymphocytes # 0.7 L (1.0-4.8) k/uL Sodium (137-145) mmol/L Carbon Dioxide (22-30) mmol/L BUN (7-17) mg/dL Glucose (74-99) mg/dL Calcium (8.4-10.2) mg/dL Iron (50-170) ug/dL Iron Saturation (12.00-45.00) Albumin (3.5-5.0) g/dL RBC Folate (280 - 791) ng/mL Assessment and Plan (1) Colonic mass Narrative/Plan: 82-year-old female with cecal mass, postoperative day #1 for exploratory laparotomy and ileostomy creation - Continue NG tube - Continue to increase activity - Continue to follow output from ostomy - Continue TPN - Progressing slowly - Prognosis guarded Current Visit: Yes Status: Acute Code(s): K63.9 - DISEASE OF INTESTINE, UNSPECIFIED SNOMED Code(s): 426625454
--- NOTE | 2018-03-24 16:06 | PN ---
PROGRESS NOTE DATE OF SERVICE: 03/24/2018 This is an 82-year-old white female who was admitted initially to the hospital with GI bleeding and severe blood loss anemia. Her hemoglobin in the ER was 4.7. The patient was admitted to ICU, where she received multiple transfusions. In the ICU she was seen by Dr. Sanchez in consultation, and he was following the patient for ICU management. The patient also has a history of chronic atrial fibrillation and the patient had been on Eliquis. The Eliquis was discontinued and the patient was seen by [facility] in consultation. They were following the patient. Once her condition became stable, she had a colonoscopy by electroplater helper and she was found to have a cecal mass and surgical consultation was obtained. Patient had a right hemicolectomy by Dr. Antonio and this tumor was found to be invasive adenocarcinoma. Apparently this was taken out completely and lymph nodes were negative. Patient was seen by on Oncology, Dr. Russo, who recommended no further oncological evaluation or treatments. The patient had some abdominal discomfort, nausea and vomiting, and patient was taken to OR again. She was found to have some pneumoperitoneum, but surgery-ricardo everything looked all right. Patient apparently had an ileostomy done by the surgeon and she is back in [facility]. Her heart is being monitored. Hemoglobin remains stable. Today her hemoglobin is 7.9. Her nausea and vomiting have subsided. Apparently her atrial fibrillation also converted back to sinus now for the time being. She is also getting TPN. The patient appears more comfortable today and her vital signs are stable. Her overall prognosis is guarded, but clinically she has started improving. We will continue the current medications and treatments. MMODL / IJN: [id number] /
[2018-03-24] MEDS: LACTATED RINGERS 1,000 ML IV SCH (21:13)
[2018-03-24] MEDS: ATORVASTATIN 20 MG TAB PO SCH (21:42)
[2018-03-25] MEDS ORDERED: SODIUM CHLORIDE 0.9% 500 ML 500 ML IV ONE (00:12)
[2018-03-25] MEDS: HYDROmorphone 1 MG/ML 1 ML SYRINGE IVP PRN (02:45)
[2018-03-25] MEDS ORDERED: MORPHINE SULFATE 2 MG/ML SYRINGE IVP PRN (07:04)
--- NOTE | 2018-03-25 07:16 | P.PN ---
Subjective Progress Note Date: 03/25/18 Patient seen and examined at bedside. Overnight, patient did have hypotensive episodes likely due to hypertensive medication. The patient also does continue to have atrial fibrillation episodes. Ostomy output has been 800 with approximately 100 mL out of NG tube. Both of bilious material. Objective - Vital Signs Vital signs: Vital Signs Temp 97.6 F 03/25/18 00:30 Pulse 92 03/25/18 06:17 Resp 14 03/25/18 06:17 BP 120/69 03/25/18 06:17 Pulse Ox 95 03/25/18 06:17 Intake & Output 03/24/18 03/25/18 03/25/18 18:59 06:59 18:59 Intake Total 100 1690 Output Total 650 1450 Balance -550 240 Weight 63.44 kg Intake: Intake, IV Titration 100 1690 Amount Fat Emulsion 20% 250 ml @ 240 20.833 mls/hr IV DAILY [facility] Rx#:[id number] Mvi, Adult No.4 with Vit 950 K 10 ml Trace (Conc-1Ml/ Dose) 1 ml Sodium Acetate 30 meq Parenteral Electrolytes 20 ml In Amino Acid 4.25%-D10w 1, 000 ml @ 65 mls/hr IV .BY DURATION [facility] Rx#: [id number] Piperacillin-Tazobactam 3 100 .375 gm In Sodium Chloride 0.9% 100 ml @ 25 mls/hr IVPB Q12HR [facility] Rx #:[id number] Sodium Chloride 0.9% 500 500 ml 500 ml @ 999 mls/hr IV .Q31M [facility] Rx#:[id number] Output: Gastric Drainage 100 150 Urine 350 300 Stool 200 1000 Other: Voiding Method Indwelling Catheter Indwelling Catheter - Constitutional General appearance: Present: cooperative, no acute distress - Gastrointestinal Gastrointestinal Comment(s): Soft, appropriate tenderness, nondistended, no rebound, no guarding, midline incision with sterile dressing, ostomy pink and patent - Psychiatric Psychiatric: Present: A&O x's 3 - Labs CBC & Chem 7: 03/24/18 08:29 03/24/18 08:29 Labs: Abnormal Lab Results - Last 24 Hours (Table) 03/23/18 03/24/18 03/24/18 Range/Units 10:31 08:29 08:29 RBC 3.41 L (3.80-5.40) m/uL Hgb 7.9 L (11.4-16.0) gm/dL Hct 26.3 L (34.0-46.0) % MCV 77.0 L (80.0-100.0) fL MCH 23.2 L (25.0-35.0) pg MCHC 30.2 L (31.0-37.0) g/dL RDW 18.2 H (11.5-15.5) % Plt Count 636 H (150-450) k/uL Neutrophils # 8.1 H (1.3-7.7) k/uL Lymphocytes # 0.7 L (1.0-4.8) k/uL Sodium 133 L (137-145) mmol/L Carbon Dioxide 21 L (22-30) mmol/L BUN 24 H (7-17) mg/dL Glucose 124 H (74-99) mg/dL Calcium 7.9 L (8.4-10.2) mg/dL Albumin 1.9 L (3.5-5.0) g/dL RBC Folate 1,135 H (280 - 791) ng/mL Assessment and Plan (1) Colonic mass Narrative/Plan: 82-year-old female with cecal mass, postoperative day #2 for exploratory laparotomy and ileostomy creation - Clamp NG tube, likely remove if patient begins to tolerate clear liquid diet - Continue to increase activity - Continue to follow output from ostomy - Continue TPN - Readjusted pain medication due to some somnolence from pain medication - Progressing slowly - Prognosis guarded Current Visit: Yes Status: Acute Code(s): K63.9 - DISEASE OF INTESTINE, UNSPECIFIED SNOMED Code(s): 822102555
[2018-03-25 08:31] LABS: Anisocytosis Slight; Basophils % (A) 0 %; Eosinophils # (A) 0.4 k/uL (0-0.7); Eosinophils % (A) 4 %; HCT 27.8 % (34.0-46.0); HGB 8.3 gm/dL (11.4-16.0); Hypochromasia Marked; Lymphocytes # (A) 1.1 k/uL (1.0-4.8); Lymphocytes % (A) 12 %; MCH 22.9 pg (25.0-35.0); MCHC 29.8 g/dL (31.0-37.0); MCV 77.1 fL (80.0-100.0); Mean Platelet Volume 7.7; Microcytosis Slight; Monocytes # (A) 0.8 k/uL (0-1.0); Monocytes % (A) 8 %; Neutrophils # (A) 7.2 k/uL (1.3-7.7); Neutrophils % (A) 74 %; Platelet Count 703 k/uL (150-450); Poikilocytosis Moderate; RDW 17.9 % (11.5-15.5); WBC 9.6 k/uL (3.8-10.6)
[2018-03-25 08:42] LABS: Calcium 8.1 mg/dL (8.4-10.2); Phosphorus 2.9 mg/dL (2.5-4.5); Potassium 4.3 mmol/L (3.5-5.1)
[2018-03-25] MEDS: FAT EMULSION 20% 250 ML IV SCH (09:08)
[2018-03-25] MEDS: APIXABAN 2.5 MG TABLET PO SCH ×2 (09:19→21:08)
[2018-03-25] MEDS: PANTOPRAZOLE 40 MG/10 ML VIAL IVP SCH ×2 (09:19→22:12)
[2018-03-25] MEDS: METOPROLOL TARTRATE 50 MG TAB PO SCH ×2 (09:49→21:08)
[2018-03-25] MEDS: VERAPAMIL 40 MG TAB PO SCH ×3 (09:49→22:10)
[2018-03-25] MEDS: SODIUM FERRIC GLUCONAT-SUCROSE 125 MG in SODIUM CHLORIDE 0.9% 100 ML IVPB SCH (11:11)
[2018-03-25] MEDS: KETOROLAC 30 MG/ML 1 ML VIAL IVP SCH ×2 (12:29→17:42)
[2018-03-25] MEDS: LACTATED RINGERS 1,000 ML IV SCH (17:43)
--- NOTE | 2018-03-25 20:06 | PN ---
PROGRESS NOTE DATE OF SERVICE: 03/25/2018 This is an 82-year-old white female who was brought to the emergency room with GI bleeding and acute blood loss anemia. Her hemoglobin in the emergency room was 4.7. Patient was admitted to ICU and she received multiple blood transfusions. In the ICU she was seen by Dr. Sanchez in consultation for ICU management. Patient was also seen by [facility] because of a long-standing history of atrial fibrillation and also she has been on Eliquis. She has a past history of recurrent episodes of TIAs and CVA and she also has a history of intracranial hemorrhage in the past. She was also seen by a evaporator and she had a colonoscopy which showed a cecal mass. Surgical consultation was obtained and Dr. Antonio did a right hemicolectomy and the patient tolerated surgery well. The tumor was found to be invasive adenocarcinoma. Apparently all the lymph nodes were negative for metastasis. Oncology consultation was obtained. According to the oncologist, she does not need any more evaluation or treatment for the cancer. Patient developed pneumoperitoneum and was taken to the OR by Dr. Antonio. There was found to be and there was no evidence of any air leakage, but Dr. Antonio did an ileostomy temporarily. Patient is recovering from surgery well. Today the NG tube has been clamped and patient is tolerating well. Her hemoglobin is 8.3 today, which is better than yesterday. Patient is also getting some physical therapy and trying to increase activities. Her heart is in atrial fibrillation with a controlled ventricular rate today. Overall prognosis is guarded. MMODL / IJN: [id number] /
[2018-03-25] MEDS: ATORVASTATIN 20 MG TAB PO SCH (21:08)
[2018-03-26] MEDS: KETOROLAC 30 MG/ML 1 ML VIAL IVP SCH ×5 (01:15→23:00)
[2018-03-26 07:57] LABS: Phosphorus 2.4 mg/dL (2.5-4.5); Potassium 3.9 mmol/L (3.5-5.1)
[2018-03-26] MEDS: SODIUM FERRIC GLUCONAT-SUCROSE 125 MG in SODIUM CHLORIDE 0.9% 100 ML IVPB SCH (10:04)
[2018-03-26] MEDS: FAT EMULSION 20% 250 ML IV SCH (10:06)
[2018-03-26] MEDS: PANTOPRAZOLE 40 MG/10 ML VIAL IVP SCH ×2 (10:28→20:40)
[2018-03-26] MEDS: METOPROLOL TARTRATE 50 MG TAB PO SCH ×2 (10:28→20:38)
[2018-03-26] MEDS: APIXABAN 2.5 MG TABLET PO SCH ×2 (10:29→20:40)
[2018-03-26] MEDS: VERAPAMIL 40 MG TAB PO SCH ×3 (10:29→23:01)
--- NOTE | 2018-03-26 10:48 | P.PN ---
Subjective Progress Note Date: 03/26/18 Principal diagnosis: Status post right hemicolectomy for colon tumor, diverting ileostomy The patient is a 82-year-old female who underwent a right hemicolectomy for a large cecal tumor on 03 15. She had an expanding peritoneum and so on 1113 underwent a laparotomy with diverting ileostomy. The patient is seen on rounds. Has some minimal pain. She's getting physical therapy. Currently on TPN. A clear liquid diet was ordered but she is not really taking anything significant in. About 25% of her dinner and no breakfast. Denies chest pain or shortness of breath. Objective - Vital Signs Vital signs: Vital Signs Temp 97.8 F 03/26/18 10:24 Pulse 97 03/26/18 10:24 Resp 20 03/26/18 10:24 BP 118/77 03/26/18 10:24 Pulse Ox 97 03/26/18 10:24 Intake & Output 03/25/18 03/26/18 03/26/18 18:59 06:59 18:59 Intake Total 2190 1200 Output Total 500 701 Balance 1690 499 Weight 63.44 kg Intake: Intake, IV Titration 1870 1200 Amount Fat Emulsion 20% 250 ml @ 250 20.833 mls/hr IV DAILY [facility] Rx#:[id number] Mvi, Adult No.4 with Vit 500 675 K 10 ml Trace (Conc-1Ml/ Dose) 1 ml Sodium Acetate 15 meq Parenteral Electrolytes 20 ml In Amino Acid 5%-D15w 1,000 ml @ 75 mls/hr IV .BY DURATION [facility] Rx#: [id number] Parenteral Electrolytes 1020 225 20 ml In Amino Acid 5%- D15w 1,000 ml @ 75 mls/hr IV .BY DURATION [facility] Rx#: [id number] Sodium Ferric Gluconat- 100 300 Sucrose 125 mg In Sodium Chloride 0.9% 100 ml @ 100 mls/hr IVPB DAILY [facility] Rx#:[id number] Oral 320 Output: Drainage 700 Abdomen 700 Urine 200 Stool 300 1 Other: Voiding Method Bedside Commode # Voids 0 2 - Constitutional General appearance: Present: cooperative, no acute distress - Respiratory Respiratory: bilateral: diminished (Mildly at the bases) - Gastrointestinal General gastrointestinal: Present: decreased bowel sounds, soft Localized gastrointestinal: surgical scar: diffuse (Dressing is intact clean and dry. Ileostomy has a small amount of bilious fluid. Ileostomy is pink and viable) - Labs CBC & Chem 7: 03/25/18 08:02 03/26/18 07:07 Labs: Abnormal Lab Results - Last 24 Hours (Table) 03/26/18 Range/Units 07:07 Sodium 134 L (137-145) mmol/L Chloride 109 H (98-107) mmol/L Carbon Dioxide 21 L (22-30) mmol/L BUN 33 H (7-17) mg/dL Glucose 115 H (74-99) mg/dL Calcium 8.0 L (8.4-10.2) mg/dL Phosphorus 2.4 L (2.5-4.5) mg/dL Assessment and Plan (1) Colon adenocarcinoma Current Visit: Yes Status: Acute Priority: High Code(s): C18.9 - MALIGNANT NEOPLASM OF COLON, UNSPECIFIED SNOMED Code(s): 672046641 Plan: We'll continue clear liquid diet today. Continue TPN. She is receiving some IV iron today for anemia. We'll recheck lab in the morning. Continue physical therapy. Progressing very slowly.
[2018-03-26] MEDS ORDERED: POTASSIUM PHOSPHATE 10 MMOL in SODIUM CHLORIDE 0.9% 100 ML IV ONE (13:00)
[2018-03-26] MEDS: [UNRECOGNIZED DRUG - REMARK] IV SCH ×6 (13:57)
--- NOTE | 2018-03-26 14:37 | PN ---
PROGRESS NOTE DATE OF SERVICE: 03/26/2018 NEW DATA: FULL CODE. Height 5 feet 5 inches. Weight 63.44 kg, BSA 1.70 m2, BMI 23.3 kg/m2. ALLERGIES: CODEINE and CIPROFLOXACIN. This is a patient of Dr. Rolando Angel, who is out of town and asked me to follow the patient during his temporary absence. The patient is seen today and evaluated. Discussed with the patient regarding her future plans. She stated she lives with her sister, who is elderly and uses a cane, and could not take care of her as well, so she will plan to go to a intermediate for future rehabilitation as well as conditioning. The patient presented to the hospital with severe anemia and blood loss and her hemoglobin was 4.1. Subsequently patient was transfused and the total course of 3 units of packed RBCs was given. She was also seen by the surgeons. Dr. Antonio did exploratory laparotomy and found after she had a colonoscopy by Dr. Hayes that she had a large mass in the cecum area that measured about 11.6 cm, to my knowledge. Subsequently patient underwent surgery and she had right colostomy as well. The patient continued to be rehabilitated and she had severe anemia of iron deficiency and currently they transfused her with iron, sodium ferrous gluconate 125 mg once a day. It was also found that she had severe debility with albumin 1.9 with severe protein- calorie deficiency. Currently she has been started on TPN by the surgery group. Patient today is seen by Dr. Ron, covering for Dr. Antonio, who continued the current clear liquid diet as well as the TPN. LABS: Labs from today 03/26 indicate sodium 134, potassium 3.9, chloride 109, carbon dioxide 21, anion gap 4. Her BUN is 33 and creatinine 0.93. The glomerular filtration rate has been fluctuating and currently is 59, which is probably associated with the hypoproteinemia, hypoalbuminemia and the perfusion to the kidneys. Her glucose is 115, calcium 8.0; probably also could be associated with the vitamin D deficiency or insufficiency. We will be checking vitamin D as well. Her phosphate is fluctuating, depending on how much she eats and how much TPN was added phosphate, but currently phosphorus is 2.4 with the normal range being 2.5; currently insignificant, but we will be checking it again as well. Her magnesium is normal at 2. Albumin 1.9, as mentioned. She has triglycerides of 62. Vitamin B12 is 428, which is normal range. RBC folate was 1135. Her last CBC was done yesterday and indicated that white count was normal at 9.6 and hemoglobin was 8.3 with the hematocrit 27.8 and platelet count 703. She had marked hypochromasia and microcytosis, slight, and she is currently on IV iron supplementation. She had the surgery as well with the exploratory laparotomy and dissection of the tumor as well as right colostomy, which is currently filling with bile-like liquid. She has minimal intake as well. She is on a full liquid diet. Oncology has seen the patient, LISA Tejada, for oncology consultation on 03/23. 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 The patient was staged as T2 N0 malignancy. No need for adjuvant treatment. She discussed it with the patient; no for further oncology intervention. She has also microcytic hypochromic anemia as per the note of COLETTE Tejada, with the underlying malignant neoplasm of the cecal area or colon. PHYSICAL EXAMINATION: Today the patient is conscious, alert, oriented. She is still pale. Oropharynx was negative. Neck was supple. Chest was clear to auscultation and percussion. She has history of atrial fibrillation. She had also history of tachycardia and she had an echocardiogram on 03/19/2018 indicating mild concentric left ventricular hypertrophy and left ventricular systolic function with hyperdynamic and probably secondary to anemia with the estimated ejection fraction more than 70%. She had left atrial severely dilated with more than 40 mL/m2 and the left ventricle was normal with the mild aortic sclerosis and aortic regurgitation. She had mild mitral annular calcification and mild mitral regurgitation. She has no evidence of pulmonary hypertension. She had tricuspid regurgitation as well. The underlying vital signs are indicating that she had controlled ventricular response with history as Dr. Angel noted in his note of hypotension, and they adjusted her medication. Currently blood pressure is 118/77, pulse 97, temperature 97.8. Irregularly irregular. EXAMINATION: Chest was clear to auscultation and percussion again. HEART: Irregular irregularity. The abdomen was soft. However, there is a right colostomy with only bile-like liquid. Positive bowel sounds. EXTREMITIES: No edema, but positive pulses as well. ASSESSMENT: 1. Status post severe anemia and gastrointestinal bleeding with blood loss. 2. Right cecal mass, found to be malignancy, status post laparotomy with removal of the mass as well as right colostomy. 3. Anemia of iron deficiency and transfused with iron. 4. Severe hypoalbuminemia and protein-calorie deficiency and currently on TPN per the surgeon. PLAN: Continue the current treatment and recommendation of the surgical team. The patient plans to be in a intermediate after the patient stabilizes and is planned for discharge. MMODL / IJN: [id number] /
[2018-03-26] MEDS: LACTATED RINGERS 1,000 ML IV SCH (18:26)
[2018-03-26] MEDS: ATORVASTATIN 20 MG TAB PO SCH (20:40)
[2018-03-27] MEDS: [UNRECOGNIZED DRUG - REMARK] IV SCH ×12 (02:39→16:26)
[2018-03-27] MEDS: KETOROLAC 30 MG/ML 1 ML VIAL IVP SCH ×3 (05:49→19:42)
[2018-03-27 08:00] LABS: Anisocytosis Slight; Basophils % (A) 0 %; Eosinophils # (A) 0.6 k/uL (0-0.7); Eosinophils % (A) 6 %; HCT 25.4 % (34.0-46.0); HGB 7.7 gm/dL (11.4-16.0); Hypochromasia Marked; Lymphocytes # (A) 1.1 k/uL (1.0-4.8); Lymphocytes % (A) 11 %; MCH 23.4 pg (25.0-35.0); MCHC 30.5 g/dL (31.0-37.0); MCV 76.7 fL (80.0-100.0); Mean Platelet Volume 7.2; Microcytosis Moderate; Monocytes # (A) 0.6 k/uL (0-1.0); Monocytes % (A) 6 %; Neutrophils # (A) 7.3 k/uL (1.3-7.7); Neutrophils % (A) 75 %; Platelet Count 655 k/uL (150-450); Poikilocytosis Slight; RBC 3.31 m/uL (3.80-5.40); RDW 18.6 % (11.5-15.5); WBC 9.6 k/uL (3.8-10.6)
[2018-03-27 08:12] LABS: Calcium 8.1 mg/dL (8.4-10.2); Phosphorus 3.2 mg/dL (2.5-4.5); Potassium 4.1 mmol/L (3.5-5.1)
[2018-03-27] MEDS: METOPROLOL TARTRATE 50 MG TAB PO SCH ×2 (09:18→20:36)
[2018-03-27] MEDS: APIXABAN 2.5 MG TABLET PO SCH ×2 (09:18→20:36)
[2018-03-27] MEDS: PANTOPRAZOLE 40 MG/10 ML VIAL IVP SCH ×2 (09:22→20:37)
[2018-03-27] MEDS: VERAPAMIL 40 MG TAB PO SCH (11:14)
[2018-03-27] MEDS: SODIUM FERRIC GLUCONAT-SUCROSE 125 MG in SODIUM CHLORIDE 0.9% 100 ML IVPB SCH (11:15)
[2018-03-27] MEDS: FAT EMULSION 20% 250 ML IV SCH (11:15)
--- NOTE | 2018-03-27 11:21 | P.PN ---
Subjective Progress Note Date: 03/27/18 Principal diagnosis: Status post right hemicolectomy for colon tumor, diverting ileostomy The patient is seen on rounds. Her oral intake is still very poor. Taking small amounts of clear liquids. She denies any nausea, vomiting, pain. She has ambulated some in the zamudio and in the room. Objective - Vital Signs Vital signs: Vital Signs Temp 97.5 F L 03/27/18 07:36 Pulse 73 03/27/18 07:36 Resp 20 03/27/18 07:36 BP 116/68 03/27/18 07:36 Pulse Ox 97 03/27/18 07:36 Intake & Output 03/26/18 03/27/18 03/27/18 18:59 06:59 18:59 Intake Total 718 1480 Output Total 300 400 Balance 418 1080 Intake: Intake, IV Titration 600 1000 Amount Mvi, Adult No.4 with Vit 600 1000 K 10 ml Trace (Conc-1Ml/ Dose) 1 ml Sodium Acetate 15 meq In Amino Acid 5%- D15w+Lytes*E* 1,000 ml @ 75 mls/hr IV .BY DURATION [facility] Rx#:[id number] Oral 118 480 Output: Drainage 200 Abdomen 200 Urine 300 Stool 200 Other: Voiding Method Bedside Commode Incontinent Diaper Incontinent # Voids 1 1 2 - Constitutional General appearance: Present: cooperative, no acute distress - Respiratory Respiratory: bilateral: CTA, diminished (Minimally at the bases) - Cardiovascular Rhythm: regular - Gastrointestinal General gastrointestinal: Present: normal bowel sounds, soft Localized gastrointestinal: surgical scar: diffuse (Ileostomy is pink and viable with some bilious output) - Labs CBC & Chem 7: 03/27/18 07:11 03/27/18 07:11 Labs: Abnormal Lab Results - Last 24 Hours (Table) 03/27/18 03/27/18 Range/Units 07:11 07:11 RBC 3.31 L (3.80-5.40) m/uL Hgb 7.7 L (11.4-16.0) gm/dL Hct 25.4 L (34.0-46.0) % MCV 76.7 L (80.0-100.0) fL MCH 23.4 L (25.0-35.0) pg MCHC 30.5 L (31.0-37.0) g/dL RDW 18.6 H (11.5-15.5) % Plt Count 655 H (150-450) k/uL Sodium 135 L (137-145) mmol/L Chloride 110 H (98-107) mmol/L Carbon Dioxide 21 L (22-30) mmol/L BUN 35 H (7-17) mg/dL Glucose 109 H (74-99) mg/dL Calcium 8.1 L (8.4-10.2) mg/dL Assessment and Plan (1) Colon adenocarcinoma Current Visit: Yes Status: Acute Priority: High Code(s): C18.9 - MALIGNANT NEOPLASM OF COLON, UNSPECIFIED SNOMED Code(s): 387626558 Plan: Continue TPN due to poor oral intake. Encourage activity. Patient is progressing slowly.
--- NOTE | 2018-03-27 14:15 | P.PN ---
Subjective Progress Note Date: 03/27/18 Principal diagnosis: Anemia secondary to GI bleeding, status post colonoscopy by Dr. Hayes acoustical carpenter with a mass in the cecum biopsy indicating adenocarcinoma. Status post hemicolectomy by Dr. Antonio with the LAPAROTOMY and right colostomy. Patient still has severe anemia, transfused iron yesterday. Laboratory data: WBC 9.6 hemoglobin 7.7, yesterday hemoglobin was 8.3. Hematocrit 25.4 and platelet count 655 she had a marketed hypochromasia and moderate micro-cytosis. It chronic electrolyte indicating sodium 135 potassium 4.1, chloride 110, carbon dioxide 21, anion gap 4, her BUN is 35, creatinine 0.95 with the estimated glomerular filtration rate for non- 57. Her glucose 109 calcium 8.1 and the left side and her phosphate is normal 3.2 and magnesium is 2 she had laboratory indicating hypoalbuminemia and that's on the 03/24/2018 with the albumin 1.9. Physical exam: Conscious alert oriented time 3 her sister came to visit her at bedside. And family member. Her vital sign today temperature 97.5 pulse rate irregular with atrial fibrillation, blood pressure 116/68 and mean of 84 and pulse ox 97%. Because of patient on March multiple medication including anticoagulant and requests twice a day for be for atrial fib chronic. Patient was placed by the [facility]. Patient was placed on the verapamil meal 3 times a day 120 mg and the heart rate was bradycardic and he requests reconsultation with the cardiology. Will obtain as well today EKG on exam On exam: Patient is conscious alert oriented communicating with her family, she had minimal eating and growling of her abdomen also patient has colostomy right- sided post laparotomy. She patient is pale severely anemic. 99/56 on the time of exam. Extremities no edema and positive pulses but still pale. Assessment and plan #1 hypotension we'll be repeating the blood pressure manually. #2 we'll obtain EKG now stat as well as changing the IV fluid 2.9 normal saline in the rate of 75 mL an hour. Repeat laboratories in a.m. #2 anemia and we will be monitoring how much of dropping in the hemoglobin. And #3 will be looking for the surgical evaluation tomorrow when Dr. Antonio come to see the patient. Objective - Vital Signs Vital signs: Vital Signs Temp 97.5 F L 11/18/18 07:36 Pulse 73 03/27/18 07:36 Resp 20 03/27/18 07:36 BP 116/68 03/27/18 07:36 Pulse Ox 97 03/27/18 07:36 Intake & Output 03/26/18 03/27/18 03/27/18 18:59 06:59 18:59 Intake Total 718 1480 0 Output Total 300 400 Balance 418 1080 0 Intake: Intake, IV Titration 600 1000 Amount Mvi, Adult No.4 with Vit 600 1000 K 10 ml Trace (Conc-1Ml/ Dose) 1 ml Sodium Acetate 15 meq In Amino Acid 5%- D15w+Lytes*E* 1,000 ml @ 75 mls/hr IV .BY DURATION [facility] Rx#:[id number] Oral 118 480 0 Output: Drainage 200 Abdomen 200 Urine 300 Stool 200 Other: Voiding Method Bedside Commode Incontinent Diaper Incontinent # Voids 1 1 2 - Labs CBC & Chem 7: 03/27/18 07:11 03/27/18 07:11 Labs: Abnormal Lab Results - Last 24 Hours (Table) 03/27/18 03/27/18 Range/Units 07:11 07:11 RBC 3.31 L (3.80-5.40) m/uL Hgb 7.7 L (11.4-16.0) gm/dL Hct 25.4 L (34.0-46.0) % MCV 76.7 L (80.0-100.0) fL MCH 23.4 L (25.0-35.0) pg MCHC 30.5 L (31.0-37.0) g/dL RDW 18.6 H (11.5-15.5) % Plt Count 655 H (150-450) k/uL Sodium 135 L (137-145) mmol/L Chloride 110 H (98-107) mmol/L Carbon Dioxide 21 L (22-30) mmol/L BUN 35 H (7-17) mg/dL Glucose 109 H (74-99) mg/dL Calcium 8.1 L (8.4-10.2) mg/dL
[2018-03-27] MEDS ORDERED: SODIUM CHLORIDE 0.9% 500 ML 300 ML IV ONE (14:26)
[2018-03-27] MEDS: SODIUM CHLORIDE 0.9% 1,000 ML IV SCH (14:34)
--- NOTE | 2018-03-27 14:43 | P.PN ---
Progress Note - Text Progress Note Date: 03/27/18 Patient found to be hypotensive despite of rechecking again manually with a blood pressure 95/55. EKG ordered from patient in junctional rhythm with a slow heart rate bradycardic. We give the patient a bolus 300 mL of normal saline, and continue the IV fluids was 0.9 normal saline 75 mL an hour. Meanwhile we held the verapamil tell the cardiology physician assistant consultation which was urgent request for management of the patient atrial fibrillation. Patient recently placed on verapamil byfixation of cardiology [facility]. We'll continue monitoring the patient and will wait for the cardiology consultation for continuing the treatment patient also on anticoagulant by mouth twice a day.
[2018-03-27] MEDS: LACTATED RINGERS 1,000 ML IV SCH (19:43)
[2018-03-27] MEDS: ATORVASTATIN 20 MG TAB PO SCH (20:37)
[2018-03-28] MEDS: KETOROLAC 30 MG/ML 1 ML VIAL IVP SCH ×5 (01:17→23:02)
[2018-03-28] MEDS: SODIUM CHLORIDE 0.9% 1,000 ML IV SCH (03:09)
[2018-03-28] MEDS: [UNRECOGNIZED DRUG - REMARK] IV SCH ×12 (05:29→20:30)
[2018-03-28] MEDS: PANTOPRAZOLE 40 MG/10 ML VIAL IVP SCH ×2 (08:39→20:30)
[2018-03-28] MEDS: APIXABAN 2.5 MG TABLET PO SCH ×2 (08:40→20:31)
[2018-03-28] MEDS: FAT EMULSION 20% 250 ML IV SCH ×2 (08:40→21:09)
[2018-03-28] MEDS: METOPROLOL TARTRATE 50 MG TAB PO SCH ×2 (08:40→20:31)
--- NOTE | 2018-03-28 09:42 | P.PN ---
Subjective Progress Note Date: 03/28/18 (Dr. Rolando Angel patient) Principal diagnosis: Anemia secondary to GI bleeding, status post colonoscopy by Dr. Hayes pattern room attendant with a mass in the cecum biopsy indicating adenocarcinoma. Status post hemicolectomy by Dr. Antonio with the LAPAROTOMY and right colostomy. Patient still has severe anemia, transfused iron yesterday. Laboratory data: WBC 9.6 hemoglobin 7.7, yesterday hemoglobin was 8.3. Hematocrit 25.4 and platelet count 655 she had a marketed hypochromasia and moderate micro-cytosis. It chronic electrolyte indicating sodium 135 potassium 4.1, chloride 110, carbon dioxide 21, anion gap 4, her BUN is 35, creatinine 0.95 with the estimated glomerular filtration rate for non- 57. Her glucose 109 calcium 8.1 and the left side and her phosphate is normal 3.2 and magnesium is 2 she had laboratory indicating hypoalbuminemia and that's on the 03/24/2018 with the albumin 1.9. Physical exam: Conscious alert oriented time 3 her sister came to visit her at bedside. And family member. Her vital sign today temperature 97.5 pulse rate irregular with atrial fibrillation, blood pressure 116/68 and mean of 84 and pulse ox 97%. Because of patient on March multiple medication including anticoagulant and requests twice a day for be for atrial fib chronic. Patient was placed by the [facility]. Patient was placed on the verapamil meal 3 times a day 120 mg and the heart rate was bradycardic and he requests reconsultation with the cardiology. Will obtain as well today EKG on exam On exam: Patient is conscious alert oriented communicating with her family, she had minimal eating and growling of her abdomen also patient has colostomy right- sided post laparotomy. She patient is pale severely anemic. 99/56 on the time of exam. Extremities no edema and positive pulses but still pale. Assessment and plan #1 hypotension we'll be repeating the blood pressure manually. #2 we'll obtain EKG now stat as well as changing the IV fluid 2.9 normal saline in the rate of 75 mL an hour. Repeat laboratories in a.m. #2 anemia and we will be monitoring how much of dropping in the hemoglobin. And #3 will be looking for the surgical evaluation tomorrow when Dr. Antonio come to see the patient. Progress note dictated [facility] Milady Deal [facility] Patient seen and evaluated today she is feeling much better had a heart rate is sinus her blood pressure improved and today 144/74 she was hypotensive yesterday and we stopped the verapamil and she was junctional rhythm yesterday today I was told that she had another EKG by the PA of the cardiology as we consulted the cardiology with a history of paroxysmal atrial fibrillation. And she is on eliquis. Patient is still anemic and she is getting iron infusion that was ordered by Ebonie GONZALEZ of oncology. Instructed the nursing staff to check was Ebonie in regard of frequent she has been to be transfused with iron patient this her for the day of INR. On exam: Blood pressure 144/74 today stable and pulse ox 97 and respiratory rate 18, and pulse rate is 68 bpm sinus EKG is not available. Laboratory today is not available however her hemoglobin was 7.7 and hematocrit 25.4 on 03/27/2018 was markedly hypochromasia. Sodium 135 normal potassium and her BUN 35 creatinine 0.95 on the 03/27/2018. Patient currently on TPN through a PICC line on the left arm and adjusted her ordered by dietitian and decisions for the TPN. Her diet was advanced today by Dr. Antonio to full liquid diet. Examination: Conscious alert oriented 3 no respiratory distress she has edema of the ankle secondary to hypoproteinemia, hypoalbuminemia. HEENT negative Neck was supple no JVD no thyromegaly no lymphadenopathy trachea midline. Chest is clear to auscultation and percussion normal breath sound. Heart: Regular sinus rhythm EKG was ordered by the nurse of dictation of the cardiology however is not on the chart yet. Abdomen: Right colostomy full of liquid only positive bowel sounds. Extremities: Bilateral ankle edema positive pulses Neurologically stable no lateralizing sign. 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 #3 severe anemia secondary to blood loss, iron deficiency. #4 hypotension temporary results with the IV fluid bolus 300 mL of normal saline and change the IV 2.9 normal saline., #5 the EKG was done at that time showed the junctional rhythm and currently changing to normal sinus rhythm and the blood pressure is normalize after discontinuation of the verapamil. Patient stable on beta blockers and anticoagulation with the history of chronic paroxysmal atrial fibrillation. This is today is her fourth injection of iron supplementation and we will be questioning how many infusion needed from the oncology. Plan obtain tomorrow CBC with differential as well as BMP thank you Objective - Vital Signs Vital signs: Vital Signs Temp 97.6 F 03/28/18 07:00 Pulse 68 03/28/18 07:00 Resp 18 03/28/18 07:00 BP 144/74 03/28/18 07:00 Pulse Ox 97 03/28/18 07:00 Intake & Output 03/27/18 03/28/18 03/28/18 18:59 06:59 18:59 Intake Total 1260 1850 250 Output Total 200 200 Balance 1260 1650 50 Intake: Intake, IV Titration 1020 1850 250 Amount Fat Emulsion 20% 250 ml @ 250 250 20.833 mls/hr IV DAILY [facility] Rx#:[id number] Parenteral Electrolytes 1020 1600 20 ml In Amino Acid 5%- D15w 1,000 ml @ 75 mls/hr IV .BY DURATION [facility] Rx#: [id number] Oral 240 Output: Stool 200 200 Other: Voiding Method Diaper Incontinent Incontinent # Voids 2 - Labs CBC & Chem 7: 03/27/18 07:11 03/27/18 07:11
[2018-03-28] MEDS: SODIUM FERRIC GLUCONAT-SUCROSE 125 MG in SODIUM CHLORIDE 0.9% 100 ML IVPB SCH (10:15)
--- NOTE | 2018-03-28 10:21 | P.PN ---
Subjective Progress Note Date: 03/28/18 Patient seen and examined at bedside. She is feeling well today. Ostomy continues to have output. She denies any nausea or emesis. She is tolerating a clear liquid diet. Pain is well-controlled. Objective - Vital Signs Vital signs: Vital Signs Temp 97.6 F 03/28/18 07:00 Pulse 68 03/28/18 07:00 Resp 18 03/28/18 07:00 BP 144/74 03/28/18 07:00 Pulse Ox 97 03/28/18 07:00 Intake & Output 03/27/18 03/28/18 03/28/18 18:59 06:59 18:59 Intake Total 1260 1850 350 Output Total 200 200 Balance 1260 1650 150 Intake: Intake, IV Titration 1020 1850 350 Amount Fat Emulsion 20% 250 ml @ 250 250 20.833 mls/hr IV DAILY [facility] Rx#:[id number] Parenteral Electrolytes 1020 1600 20 ml In Amino Acid 5%- D15w 1,000 ml @ 75 mls/hr IV .BY DURATION [facility] Rx#: [id number] Sodium Ferric Gluconat- 100 Sucrose 125 mg In Sodium Chloride 0.9% 100 ml @ 100 mls/hr IVPB DAILY [facility] Rx#:[id number] Oral 240 Output: Stool 200 200 Other: Voiding Method Diaper Incontinent Incontinent # Voids 2 - Constitutional General appearance: Present: cooperative - Respiratory Details: No difficulty with respiration - Gastrointestinal Gastrointestinal Comment(s): Abdomen is soft, appropriate tenderness, nondistended, no rebound, no guarding, ostomy is pink and patent with output - Psychiatric Psychiatric: Present: A&O x's 3 - Labs CBC & Chem 7: 03/27/18 07:11 03/27/18 07:11 Assessment and Plan (1) Colonic mass Narrative/Plan: 82-year-old female with cecal mass, postoperative from exploratory laparotomy and ileostomy creation - Advance to full liquid diet - Continue to increase activity - Continue to follow output from ostomy - Continue TPN - Protein supplementation with ensure supplements - Progressing slowly - Prognosis guarded Current Visit: Yes Status: Acute Code(s): K63.9 - DISEASE OF INTESTINE, UNSPECIFIED SNOMED Code(s): 510623917
[2018-03-28 11:22] LABS: Calcium 8.4 mg/dL (8.4-10.2)
--- NOTE | 2018-03-28 13:51 | P.PN ---
Subjective This is a pleasant 82-year-old female past medical history significant for hypertension and chronic atrial fibrillation presented to the hospital with acute GI bleed and was found to have a mass in her colon for which she underwent a colectomy. We have been asked to see her again during this admission for hypotension. During her lengthy hospital stay she has been in persistent atrial fibrillation with fluctuating rates. She was started on high dose beta blockers as well as verapamil for heart rate control. Yesterday afternoon she had some episodes of hypotension 90-100 systolic. Last night she converted to sinus mechanism and has been maintaining ever since. She is being initiated of full liquid diet by surgery today. She denies chest pain, shortness of breath, dizziness or palpitations. Blood pressure today 144/74 heart rate 68 afebrile and maintaining oxygen saturation on room air. Laboratory data reviewed, sodium 138, potassium 4, creatinine 0.92. GENERAL: Well-appearing, well-nourished and in no acute distress. NECK: Supple without JVD or thyromegaly. LUNGS: Breath sounds clear to auscultation bilaterally. Respiration equal and unlabored. No wheezes, rales or rhonchi. HEART: Regular rate and rhythm with systolic ejection murmur at the left sternal border, no rubs or gallops. S1 and S2 heard. EXTREMITIES: Normal range of motion, no edema. No clubbing or cyanosis. Peripheral pulses intact. ASSESSMENT Chronic persistent atrial fibrillation with rapid ventricular response, has converted to sinus mechanism. Gastrointestinal bleed secondary to colon mass status post colectomy Hypertension Dyslipidemia PLAN Pt has converted to sinus mechanism, repeat EKG. Verapamil has been discontinued by primary for hypotension. Continue beta blockers and anticoagulation Nurse Practitioner note has been reviewed, I agree with a documented findings and plan of care. Patient was seen and examined. Objective - Vital Signs Vital signs: Vital Signs Temp 97.6 F 03/28/18 07:00 Pulse 68 03/28/18 07:00 Resp 18 03/28/18 07:00 BP 144/74 03/28/18 07:00 Pulse Ox 97 03/28/18 07:00 Intake & Output 03/27/18 03/28/18 03/28/18 18:59 06:59 18:59 Intake Total 1260 1850 350 Output Total 200 200 Balance 1260 1650 150 Weight 63.44 kg Intake: Intake, IV Titration 1020 1850 350 Amount Fat Emulsion 20% 250 ml @ 250 250 20.833 mls/hr IV DAILY [facility] Rx#:[id number] Parenteral Electrolytes 1020 1600 20 ml In Amino Acid 5%- D15w 1,000 ml @ 75 mls/hr IV .BY DURATION [facility] Rx#: [id number] Sodium Ferric Gluconat- 100 Sucrose 125 mg In Sodium Chloride 0.9% 100 ml @ 100 mls/hr IVPB DAILY [facility] Rx#:[id number] Oral 240 Output: Stool 200 200 Other: Voiding Method Diaper Incontinent Incontinent # Voids 2 1 - Labs CBC & Chem 7: 03/27/18 07:11 03/28/18 10:48 Labs: Abnormal Lab Results - Last 24 Hours (Table) 03/28/18 Range/Units 10:48 Chloride 111 H (98-107) mmol/L BUN 32 H (7-17) mg/dL Glucose 101 H (74-99) mg/dL
[2018-03-28] MEDS ORDERED: ENALAPRILAT 1.25 MG/ML 1 ML VIAL IVP PRN (16:05)
[2018-03-28] MEDS ORDERED: amLODIPine 5 MG TAB PO STA (16:12)
[2018-03-28] MEDS: ATORVASTATIN 20 MG TAB PO SCH (20:31)
[2018-03-29] MEDS: KETOROLAC 30 MG/ML 1 ML VIAL IVP SCH (05:10)
[2018-03-29] MEDS: PANTOPRAZOLE 40 MG/10 ML VIAL IVP SCH ×2 (08:20→20:37)
[2018-03-29] MEDS: APIXABAN 2.5 MG TABLET PO SCH ×2 (08:21→20:37)
[2018-03-29] MEDS: METOPROLOL TARTRATE 50 MG TAB PO SCH ×2 (08:21→20:37)
[2018-03-29] MEDS: FAT EMULSION 20% 250 ML IV SCH (08:22)
--- NOTE | 2018-03-29 08:38 | CDI ---
Last Revision, April 2017 Documentation Clarification Form Date: 03/29/18 From: Obdulia Wheeler RN Admit Date: 03/09/2018 9:16:00 PM Patient Name: Radha Del Angel Visit Number: [id number] ATTENTION: The Clinical Documentation Specialists (CDI) and [facility] Coding Staff appreciate your assistance in clarifying documentation. Please respond to the clarification below the line at the bottom and electronically sign. The CDI & [facility] Coding staff will review the response and follow-up if needed. Please note: Queries are made part of the Legal Health Record. If you have any questions, please contact the author of this message via ITS. Renato Parker MD, Chronic renal failure was documented in the ED note 03/09, 03/[address] Scott, 03/10 H&P, 03/11 PN, Consult 03/23 Dr. Antonio, Consult 03/23 Dr Russo. History/Risk Factors: CVA, cerebral hemorrhage, HTN, cardiovascular disease, chronic A FIB, GI bleeding, paroxysmal chronic a fib, hypothyroidism, chronic renal failure, hyperlipidemia Clinical indicators: Renal failure documented as history through out the chart. Current on admission: BUN 27, CR. 1.18, GFR 44. ON 03/28: BUN 32, CR 0.92, GFR59 Treatment: Consults: No nephrology consult IVF: >9 @ 75. 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 #2 secondary to hypoproteinemia hypoalbuminemia and dehydration chronic kidney disease 2 to 3. Please continue to document in your progress notes and discharge summary in order to capture severity of illness and risk of mortality. Include clinical findings that support your diagnosis. MTDD
[2018-03-29] MEDS: [UNRECOGNIZED DRUG - REMARK] IV SCH ×6 (09:38)
[2018-03-29] MEDS: SODIUM FERRIC GLUCONAT-SUCROSE 125 MG in SODIUM CHLORIDE 0.9% 100 ML IVPB SCH (09:38)
--- NOTE | 2018-03-29 09:54 | P.PN ---
Subjective Progress Note Date: 03/29/18 Patient seen and examined at bedside. Continuing to improve. Tolerated full liquid diet. Per nursing, increasing appetite and eating more. Ostomy continues to have output. Denies any nausea or vomiting. Objective - Vital Signs Vital signs: Vital Signs Temp 98.1 F 03/29/18 07:00 Pulse 68 03/29/18 07:00 Resp 18 03/29/18 07:00 BP 161/71 03/29/18 07:00 Pulse Ox 97 03/29/18 07:00 Intake & Output 03/28/18 03/29/18 03/29/18 18:59 06:59 18:59 Intake Total 600 1020 350 Output Total 550 200 100 Balance 50 820 250 Weight 63.44 kg Intake: Intake, IV Titration 600 1020 350 Amount Fat Emulsion 20% 250 ml @ 500 250 20.833 mls/hr IV DAILY [facility] Rx#:[id number] Parenteral Electrolytes 1020 20 ml In Amino Acid 5%- D15w 1,000 ml @ 75 mls/hr IV .BY DURATION [facility] Rx#: [id number] Sodium Ferric Gluconat- 100 100 Sucrose 125 mg In Sodium Chloride 0.9% 100 ml @ 100 mls/hr IVPB DAILY [facility] Rx#:[id number] Output: Stool 550 200 100 Other: Voiding Method Incontinent Diaper # Voids 1 2 - Constitutional General appearance: Present: cooperative, no acute distress - Respiratory Details: No difficulty with respiration - Gastrointestinal Gastrointestinal Comment(s): Soft, appropriate tenderness, nondistended, no rebound, no guarding, ostomy is pink and patent, midline incision with skin lesvia in place - Musculoskeletal Musculoskeletal: Present: generalized weakness - Psychiatric Psychiatric: Present: A&O x's 3 - Labs CBC & Chem 7: 03/27/18 07:11 03/28/18 10:48 Labs: Abnormal Lab Results - Last 24 Hours (Table) 03/28/18 Range/Units 10:48 Chloride 111 H (98-107) mmol/L BUN 32 H (7-17) mg/dL Glucose 101 H (74-99) mg/dL Assessment and Plan (1) Colonic mass Narrative/Plan: 82-year-old female with cecal mass, postoperative from exploratory laparotomy and ileostomy creation - Advance to soft diet - Continue to increase activity - Continue to follow output from ostomy - Continue TPN, half rate to wean - Protein supplementation with ensure supplements - Progressing slowly - Prognosis guarded Current Visit: Yes Status: Acute Code(s): K63.9 - DISEASE OF INTESTINE, UNSPECIFIED SNOMED Code(s): 255166735
[2018-03-29 10:06] LABS: Calcium 8.3 mg/dL (8.4-10.2); Magnesium 1.8 mg/dL (1.6-2.3); Phosphorus 3.9 mg/dL (2.5-4.5); Potassium 4.2 mmol/L (3.5-5.1)
[2018-03-29 10:27] LABS: Anisocytosis Slight; Basophils # (A) 0.1 k/uL (0-0.2); Basophils % (A) 1 %; Eosinophils # (A) 0.6 k/uL (0-0.7); Eosinophils % (A) 6 %; HCT 26.4 % (34.0-46.0); HGB 7.8 gm/dL (11.4-16.0); Hypochromasia Marked; Lymphocytes # (A) 1.2 k/uL (1.0-4.8); Lymphocytes % (A) 12 %; MCH 23.3 pg (25.0-35.0); MCHC 29.7 g/dL (31.0-37.0); MCV 78.5 fL (80.0-100.0); Mean Platelet Volume 7.1; Microcytosis Slight; Monocytes # (A) 0.7 k/uL (0-1.0); Monocytes % (A) 7 %; Neutrophils # (A) 7.3 k/uL (1.3-7.7); Neutrophils % (A) 74 %; Platelet Count 756 k/uL (150-450); Poikilocytosis Moderate; RBC 3.37 m/uL (3.80-5.40); RDW 19.1 % (11.5-15.5); WBC 9.8 k/uL (3.8-10.6)
[2018-03-29 11:20] LABS: Ionized Calcium 5.3 mg/dL (4.5-5.3)
[2018-03-29] MEDS: MAGNESIUM SULFATE-D5W PMX 1 GM in DEXTROSE/WATER 1 100ML.BAG IVPB SCH ×2 (12:15→14:20)
[2018-03-29] MEDS: amLODIPine 5 MG TAB PO SCH ×2 (12:15→20:37)
--- NOTE | 2018-03-29 13:59 | P.PN ---
Subjective This is a pleasant 82-year-old female past medical history significant for hypertension and chronic atrial fibrillation presented to the hospital with acute GI bleed and was found to have a mass in her colon for which she underwent a colectomy. We have been asked to see her again during this admission for hypotension. During her lengthy hospital stay she has been in persistent atrial fibrillation with fluctuating rates. She was started on high dose beta blockers as well as verapamil for heart rate control. She converted to sinus mechanism. She is currently maintained on Lopressor 100 mg twice a day, amlodipine 5 mg twice a day and Eliquis 2.5 mg twice a day. Blood pressure 145/77 heart rate 73 afebrile maintaining oxygen saturation on room air. Laboratory data reviewed, WBC 9.8, hemoglobin 7.8, platelets 756, sodium 138, potassium 4.2, creatinine 0.83, magnesium 1.8. She is tolerating a full liquid diet. She denies chest pain, shortness of breath, dizziness or palpitations. GENERAL: Well-appearing, well-nourished and in no acute distress. NECK: Supple without JVD or thyromegaly. LUNGS: Breath sounds clear to auscultation bilaterally. Respiration equal and unlabored. No wheezes, rales or rhonchi. HEART: Regular rate and rhythm with systolic ejection murmur at the left sternal border, no rubs or gallops. S1 and S2 heard. EXTREMITIES: Normal range of motion, no edema. No clubbing or cyanosis. Peripheral pulses intact. ASSESSMENT Chronic persistent atrial fibrillation with rapid ventricular response, has converted to sinus mechanism. Gastrointestinal bleed secondary to colon mass status post colectomy Hypertension Dyslipidemia PLAN Pt has continues to maintain sinus mechanism. Verapamil has been discontinued by primary for hypotension. Continue beta blockers and anticoagulation. Feel free to call with further questions or concerns. Nurse Practitioner note has been reviewed, I agree with a documented findings and plan of care. Patient was seen and examined. Objective - Vital Signs Vital signs: Vital Signs Temp 98.1 F 03/29/18 07:00 Pulse 73 03/29/18 12:13 Resp 18 03/29/18 07:00 BP 145/77 03/29/18 12:13 Pulse Ox 96 03/29/18 12:13 Intake & Output 03/28/18 03/29/18 03/29/18 18:59 06:59 18:59 Intake Total 600 1020 450 Output Total 550 200 100 Balance 50 820 350 Weight 63.44 kg Intake: Intake, IV Titration 600 1020 450 Amount Fat Emulsion 20% 250 ml @ 500 250 20.833 mls/hr IV DAILY [facility] Rx#:[id number] Magnesium Sulfate-D5w Pmx 100 1 gm In Dextrose/Water 1 100ml.bag @ 100 mls/hr IVPB Q1H [facility] Rx#: [id number] Parenteral Electrolytes 1020 20 ml In Amino Acid 5%- D15w 1,000 ml @ 75 mls/hr IV .BY DURATION [facility] Rx#: [id number] Sodium Ferric Gluconat- 100 100 Sucrose 125 mg In Sodium Chloride 0.9% 100 ml @ 100 mls/hr IVPB DAILY [facility] Rx#:[id number] Output: Stool 550 200 100 Other: Voiding Method Incontinent Diaper # Voids 1 2 3 - Labs CBC & Chem 7: 03/29/18 07:28 03/29/18 07:28 Labs: Abnormal Lab Results - Last 24 Hours (Table) 03/29/18 03/29/18 Range/Units 07:28 07:28 RBC 3.37 L (3.80-5.40) m/uL Hgb 7.8 L (11.4-16.0) gm/dL Hct 26.4 L (34.0-46.0) % MCV 78.5 L (80.0-100.0) fL MCH 23.3 L (25.0-35.0) pg MCHC 29.7 L (31.0-37.0) g/dL RDW 19.1 H (11.5-15.5) % Plt Count 756 H (150-450) k/uL BUN 26 H (7-17) mg/dL Calcium 8.3 L (8.4-10.2) mg/dL
--- NOTE | 2018-03-29 15:21 | P.PN ---
Subjective Progress Note Date: 03/29/18 (Dr. Rolando Angel) Principal diagnosis: Anemia secondary to GI bleeding, status post colonoscopy by Dr. 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 Status post hemicolectomy by Dr. Antonio with the LAPAROTOMY and right colostomy. Patient still has severe anemia, transfused iron yesterday. Laboratory data: WBC 9.6 hemoglobin 7.7, yesterday hemoglobin was 8.3. Hematocrit 25.4 and platelet count 655 she had a marketed hypochromasia and moderate micro-cytosis. It chronic electrolyte indicating sodium 135 potassium 4.1, chloride 110, carbon dioxide 21, anion gap 4, her BUN is 35, creatinine 0.95 with the estimated glomerular filtration rate for non- 57. Her glucose 109 calcium 8.1 and the left side and her phosphate is normal 3.2 and magnesium is 2 she had laboratory indicating hypoalbuminemia and that's on the 03/24/2018 with the albumin 1.9. Physical exam: Conscious alert oriented time 3 her sister came to visit her at bedside. And family member. Her vital sign today temperature 97.5 pulse rate irregular with atrial fibrillation, blood pressure 116/68 and mean of 84 and pulse ox 97%. Because of patient on March multiple medication including anticoagulant and requests twice a day for be for atrial fib chronic. Patient was placed by the [facility]. Patient was placed on the verapamil meal 3 times a day 120 mg and the heart rate was bradycardic and he requests reconsultation with the cardiology. Will obtain as well today EKG on exam On exam: Patient is conscious alert oriented communicating with her family, she had minimal eating and growling of her abdomen also patient has colostomy right- sided post laparotomy. She patient is pale severely anemic. 99/56 on the time of exam. Extremities no edema and positive pulses but still pale. Assessment and plan #1 hypotension we'll be repeating the blood pressure manually. #2 we'll obtain EKG now stat as well as changing the IV fluid 2.9 normal saline in the rate of 75 mL an hour. Repeat laboratories in a.m. #2 anemia and we will be monitoring how much of dropping in the hemoglobin. And #3 will be looking for the surgical evaluation tomorrow when Dr. Antonio come to see the patient. Progress note dictated by Dr. Milady Deal [facility]. Patient seen and evaluated today she is feeling much better had a heart rate is sinus her blood pressure improved and today 144/74 she was hypotensive yesterday and we stopped the verapamil and she was junctional rhythm yesterday today I was told that she had another EKG by the PA of the cardiology as we consulted the cardiology with a history of paroxysmal atrial fibrillation. And she is on eliquis. Patient is still anemic and she is getting iron infusion that was ordered by Ebonie GONZALEZ of oncology. Instructed the nursing staff to check was Ebonie in regard of frequent she has been to be transfused with iron patient this her for the day of INR. On exam: Blood pressure 144/74 today stable and pulse ox 97 and respiratory rate 18, and pulse rate is 68 bpm sinus EKG is not available. Laboratory today is not available however her hemoglobin was 7.7 and hematocrit 25.4 on 03/27/2018 was markedly hypochromasia. Sodium 135 normal potassium and her BUN 35 creatinine 0.95 on the 03/27/2018. Patient currently on TPN through a PICC line on the left arm and adjusted her ordered by dietitian and decisions for the TPN. Her diet was advanced today by Dr. Antonio to full liquid diet. Examination: Conscious alert oriented 3 no respiratory distress she has edema of the ankle secondary to hypoproteinemia, hypoalbuminemia. HEENT negative Neck was supple no JVD no thyromegaly no lymphadenopathy trachea midline. Chest is clear to auscultation and percussion normal breath sound. Heart: Regular sinus rhythm EKG was ordered by the nurse of dictation of the cardiology however is not on the chart yet. Abdomen: Right colostomy full of liquid only positive bowel sounds. Extremities: Bilateral ankle edema positive pulses Neurologically stable no lateralizing sign. 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 #3 severe anemia secondary to blood loss, iron deficiency. #4 hypotension temporary results with the IV fluid bolus 300 mL of normal saline and change the IV 2.9 normal saline., #5 the EKG was done at that time showed the junctional rhythm and currently changing to normal sinus rhythm and the blood pressure is normalize after discontinuation of the verapamil. Patient stable on beta blockers and anticoagulation with the history of chronic paroxysmal atrial fibrillation. This is today is her fourth injection of iron supplementation and we will be questioning how many infusion needed from the oncology. Plan obtain tomorrow CBC with differential as well as BMP thank you This progress note dictated on 03/29/[address]Esafy Toyin CLAROS on the follow- up progress note. Patient spiked a hypertension and at that time we started her on antihypertensive medication due to effect of her blood pressure went up to 180 systolic. And today on the on 03/29/2018 Patient Seen and Evaluated and Examined and Laboratories. Her Her on Hemoglobin Is WBC 9.8 and her hemoglobin 7.8 and hematocrit 26.4 and her platelet count 756. Probably reactive. With the underlying right colostomy with the cecal mass tumor adenocarcinoma. Vital signs stable temperature 98.1 and pulse rate is 68-73 her blood pressure 145/77 and pulse ox 96%. Patient progression with the ambulation and with the physical therapy. Dr. So did adjust her TPN to 50% as well as he advance her diet to full liquid diet. And with the progression of her improvement patient will be able to go to [facility] and rehab. No specific complaint today is she able to eat a sandwich. And able to keep it no nausea no vomiting, and the colostomy on the right sided is functioning. On exam: Patient's conscious alert oriented 3 able to comply with the rehabilitation and to have a few steps with a walker. HEENT negative able to eat and swallow normally no choking. She had a scar from previous thyroidectomy in the past. On the neck The neck was supple no JVD no thyromegaly no lymphadenopathy and trachea midline. Chest: Clear to auscultation percussion. Heart compensated regular sinus with the underlying history of chronic atrial fibrillation patient on anticoagulant. Abdomen: Right-sided colostomy with a colon resection with the cecal mass. Extremities: Only edema 1+ on the ankle associated with hypoproteinemia and hypoalbuminemia with the prolonged decreased intake post GI surgery. Neurologically stable no lateralizing sign. Assessment: Patient progressed and rehabilitation working with the patient. Anemia with a history of GI bleeding secondary to the tumor mass. Iron deficiency anemia transfused 5 units of iron supplement. Under course of the treatment transfused 3 units of packed RBCs. Hypertension currently stable. Chronic atrial fibrillation paroxysmal currently sinus. She is on anticoagulation chronically. Laboratory: Renal function stable and currently her EGFR 67. Calcium 8.3 we'll check on vitamin D level. And normal magnesium normal sodium normal potassium. We'll continue follow-up till Dr. Angel return. Objective - Vital Signs Vital signs: Vital Signs Temp 98.1 F 03/29/18 07:00 Pulse 73 03/29/18 12:13 Resp 18 03/29/18 07:00 BP 145/77 03/29/18 12:13 Pulse Ox 96 03/29/18 12:13 Intake & Output 03/28/18 03/29/18 03/29/18 18:59 06:59 18:59 Intake Total 600 1020 550 Output Total 550 200 100 Balance 50 820 450 Weight 63.44 kg Intake: Intake, IV Titration 600 1020 550 Amount Fat Emulsion 20% 250 ml @ 500 250 20.833 mls/hr IV DAILY [facility] Rx#:[id number] Magnesium Sulfate-D5w Pmx 200 1 gm In Dextrose/Water 1 100ml.bag @ 100 mls/hr IVPB Q1H [facility] Rx#: [id number] Parenteral Electrolytes 1020 20 ml In Amino Acid 5%- D15w 1,000 ml @ 75 mls/hr IV .BY DURATION [facility] Rx#: [id number] Sodium Ferric Gluconat- 100 100 Sucrose 125 mg In Sodium Chloride 0.9% 100 ml @ 100 mls/hr IVPB DAILY [facility] Rx#:[id number] Output: Stool 550 200 100 Other: Voiding Method Incontinent Diaper # Voids 1 2 3 - Labs CBC & Chem 7: 03/29/18 07:28 03/29/18 07:28 Labs: Abnormal Lab Results - Last 24 Hours (Table) 03/29/18 03/29/18 Range/Units 07:28 07:28 RBC 3.37 L (3.80-5.40) m/uL Hgb 7.8 L (11.4-16.0) gm/dL Hct 26.4 L (34.0-46.0) % MCV 78.5 L (80.0-100.0) fL MCH 23.3 L (25.0-35.0) pg MCHC 29.7 L (31.0-37.0) g/dL RDW 19.1 H (11.5-15.5) % Plt Count 756 H (150-450) k/uL BUN 26 H (7-17) mg/dL Calcium 8.3 L (8.4-10.2) mg/dL
[2018-03-29] MEDS: ATORVASTATIN 20 MG TAB PO SCH (20:37)
[2018-03-30] MEDS: [UNRECOGNIZED DRUG - REMARK] IV SCH ×12 (05:07→14:28)
[2018-03-30] MEDS: APIXABAN 2.5 MG TABLET PO SCH (07:29)
[2018-03-30] MEDS: METOPROLOL TARTRATE 50 MG TAB PO SCH (07:30)
[2018-03-30] MEDS: PANTOPRAZOLE 40 MG/10 ML VIAL IVP SCH (07:31)
[2018-03-30 07:33] VITALS: RESP 18
[2018-03-30 10:16] LABS: Calcium 8.5 mg/dL (8.4-10.2); Phosphorus 3.8 mg/dL (2.5-4.5); Potassium 4.1 mmol/L (3.5-5.1)
[2018-03-30] MEDS: amLODIPine 5 MG TAB PO SCH (13:10)
--- NOTE | 2018-03-30 14:05 | P.DS ---
Providers Date of admission: 03/09/18 21:16 Expected date of discharge: 03/30/18 Attending physician: Rolando Angel Consults: 03/09/18 21:09 Consult Physician Urgent Consulting Provider: Sonia Sanchez Consult Reason/Comments: ICU management, GI bleed Do you want consulting provider notified?: Already Contacted 03/10/18 14:55 Consult Physician Routine Consulting Provider: Cardiology Sheri Consult Reason/Comments: Afib/anticoagulation/GIB Do you want consulting provider notified?: Yes 03/12/18 16:49 Consult Physician Routine Consulting Provider: Bethel Rose Consult Reason/Comments: cecum mass Do you want consulting provider notified?: Yes 03/20/18 09:26 Consult Physician Routine Consulting Provider: Cardiology Sheri Consult Reason/Comments: Afib Do you want consulting provider notified?: Already Contacted 03/22/18 09:38 Consult Physician Routine Consulting Provider: Daron Riojas Consult Reason/Comments: colon CA Do you want consulting provider notified?: Yes 03/27/18 14:32 Consult Physician Urgent Consulting Provider: Zachary Hollis Consult Reason/Comments: Junctional rhythm, patient placed on verapamil by cardiology PA for AF Do you want consulting provider notified?: Yes Primary care physician: Rolando Angel This is dictation of discharge summary dictated by Dr.elsafy Deal FACP in that temporary absence of Dr. Rolando Angel the attending. Disposition to [facility] and rehab. Cleared by Dr. Antonio the surgeon. Final diagnosis: #1 acute blood loss, associated anemia. 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 #3 status post colectomy by Dr. Antonio, right colostomy, #4 iron deficiency anemia secondary to blood loss. #5 severe protein calorie deficiency with a hypoalbuminemia and hypoproteinemia secondary to GI surgery. #6 chronic atrial fibrillation paroxysmal on anti-coagulant . Electrolyte imbalance. #7 status post hyper alimentation IV with a left PICC line. Which will be removed prior to discharge. #8 hyperlipidemia. #9 hypertension. #10 hypothyroidism. #11 vitamin D insufficiency. Presentation to the emergency room: His old white female with atrial fibrillation on this presented with low hemoglobin to the ER physician hemoglobin was 4.7 rectal bleeding with rectal bleeding happened 1 day prior to the admission and noticed was blood tinged. With no history of peptic ulcer disease. No fever no chills no nausea no vomiting. Patient had melanotic stools. Hospital course: Patient admitted to the ICU for close monitoring and subsequently transfused with 3 units packed RBCs animal sitter gastroenterology Dr. Victor gastroenterology did colonoscopy found large mass in the cecal area with a biopsy adenocarcinoma. After patient stabilized Dr. Antonio take the patient to the OR where they did colectomy and right colostomy, and start TPN. Patient has episodes of junctional rhythm with the underlying baseline of atrial fibrillation consultation with the cardiology associated with hypotension subsequently verapamil was discontinued and currently patient stable general condition after the iron supplementation for 5 dizziness no IV oncology patient did well and her blood pressure stability and this started the rehabilitation. Patient subsequently Was Discontinued and She Had Normal Bowel Function in the Colostomy Bag, Cleared by Dr. Antonio for Discharge to [facility] Rehab and to Follow-Up with Him As Well As Well As Dr. Rolando Angel Will Be Following Her in the Correction. Patient Still Had the Anemia Which Will Take Time to Recover. Patient Will Continue Current Medication and I reviewed her medication. Continue current medication and continue rehabilitation at [facility] and rehab Patient Condition at Discharge: Serious Plan - Discharge Summary Discharge Rx Participant: Yes New Discharge Prescriptions: New Ferrous Sulfate [Feosol] 325 mg PO DAILY #90 tab No Action Levothyroxine Sodium [Synthroid] 125 mcg PO DAILY Ergocalciferol (Vitamin D2) [Vitamin D2] 50,000 unit PO Q30D Apixaban [Eliquis] 2.5 mg PO BID amLODIPine [Norvasc] 5 mg PO DAILY tab Atorvastatin [Lipitor] 20 mg PO HS tab Metoprolol Tartrate [Lopressor] 50 mg PO TID tab Pantoprazole [Protonix] 40 mg PO DAILY tablet.dr Discharge Medication List Levothyroxine Sodium [Synthroid] 125 mcg PO DAILY 08/31/15 [History] Ergocalciferol (Vitamin D2) [Vitamin D2] 50,000 unit PO Q30D 05/12/17 [History] Apixaban [Eliquis] 2.5 mg PO BID 12/17/17 [History] Atorvastatin [Lipitor] 20 mg PO HS tab 12/28/17 [Rx] Metoprolol Tartrate [Lopressor] 50 mg PO TID tab 12/28/17 [Rx] Pantoprazole [Protonix] 40 mg PO DAILY tablet. 12/28/17 [Rx] amLODIPine [Norvasc] 5 mg PO DAILY tab 12/28/17 [Rx] Ferrous Sulfate [Feosol] 325 mg PO DAILY #90 tab 03/24/18 [Rx] Follow up Appointment(s)/Referral(s): Gustavo Russo MD [STAFF PHYSICIAN] - 4 Weeks Rolando Angel MD [Primary Care Provider] - 1-2 days Phillip Black Diamond, [NON-STAFF] - As Needed [facility], [NON-STAFF] - 1 Week Lucas Diaz MD [STAFF PHYSICIAN] - 2 Weeks Patient Instructions/Handouts: Ileostomy Care (GEN), Ileostomy Diet (ED) Activity/Diet/Wound Care/Special Instructions: Abdominal midline incision care: Ileostomy Care Recommendations: Last appliance change: 03.30.2018 [facility] will supply the following: Convatec Flange #[id number] (3) Convatec pouch with filter #[id number] (3) No sting prep pads (12) Ostomy powder as needed for peristomal skin irritation if needed Pouching system is to be changed every 3-5 days Pouch is to be emptied when it is 1/2 to 1/3 full.
[2018-03-30 15:14] VITALS: BP 149/78; PULSE 68; TEMP 98.4
== END 2018-03-30 15:39 | DRG 329 ==
LOC: EC 18:57 → 2SICU 21:16 → 4SSUR 03-11 01:08
PROVIDERS: ADMIT Internal Medicine; ATTEND Internal Medicine
PROC: 30233N1 Transfusion of Nonautologous Red Blood Cells into Peripheral Vein, Percutaneous Approach (ICD-10-PCS; 2018-03-09)
PROC: 0DBH8ZX Excision of Cecum, Via Natural or Artificial Opening Endoscopic, Diagnostic (ICD-10-PCS; 2018-03-11)
PROC: 0DJ08ZZ Inspection of Upper Intestinal Tract, Via Natural or Artificial Opening Endoscopic (ICD-10-PCS; 2018-03-11)
PROC: 0DTF0ZZ Resection of Right Large Intestine, Open Approach (ICD-10-PCS; principal; 2018-03-15 11:15)
PROC: 02HV33Z Insertion of Infusion Device into Superior Vena Cava, Percutaneous Approach (ICD-10-PCS; 2018-03-19)
PROC: 3E0436Z Introduction of Nutritional Substance into Central Vein, Percutaneous Approach (ICD-10-PCS; 2018-03-19)
PROC: 0D1B0Z4 Bypass Ileum to Cutaneous, Open Approach (ICD-10-PCS; 2018-03-23)
PROC: 0D9670Z Drainage of Stomach with Drainage Device, Via Natural or Artificial Opening (ICD-10-PCS; 2018-03-23)
DX: C18.0 Malignant neoplasm of cecum (principal); E43 Unspecified severe protein-calorie malnutrition; I69.351 Hemiplegia and hemiparesis following cerebral infarction affecting right dominant side; D62 Acute posthemorrhagic anemia; K92.1 Melena; K56.7 Ileus, unspecified; I95.9 Hypotension, unspecified; I48.2 Chronic atrial fibrillation; E77.8 Other disorders of glycoprotein metabolism; K66.8 Other specified disorders of peritoneum; E86.0 Dehydration; I13.10 Hypertensive heart and chronic kidney disease without heart failure, with stage 1 through stage 4 chronic kidney disease, or unspecified chronic kidney disease; N18.3 Chronic kidney disease, stage 3 (moderate); D75.89 Other specified diseases of blood and blood-forming organs; D50.0 Iron deficiency anemia secondary to blood loss (chronic); K44.9 Diaphragmatic hernia without obstruction or gangrene; K31.7 Polyp of stomach and duodenum; K63.5 Polyp of colon; K57.30 Diverticulosis of large intestine without perforation or abscess without bleeding; K64.8 Other hemorrhoids; E78.5 Hyperlipidemia, unspecified; M19.90 Unspecified osteoarthritis, unspecified site; E55.9 Vitamin D deficiency, unspecified; I25.10 Atherosclerotic heart disease of native coronary artery without angina pectoris; K21.9 Gastro-esophageal reflux disease without esophagitis; E89.0 Postprocedural hypothyroidism; R40.2362 Coma scale, best motor response, obeys commands, at arrival to emergency department; R40.2142 Coma scale, eyes open, spontaneous, at arrival to emergency department; R40.2252 Coma scale, best verbal response, oriented, at arrival to emergency department; Z68.23 Body mass index [BMI] 23.0-23.9, adult; Z79.01 Long term (current) use of anticoagulants; Z79.890 Hormone replacement therapy; Z79.899 Other long term (current) drug therapy; Z86.19 Personal history of other infectious and parasitic diseases; Z86.69 Personal history of other diseases of the nervous system and sense organs; Z88.1 Allergy status to other antibiotic agents; Z88.5 Allergy status to narcotic agent; Z82.0 Family history of epilepsy and other diseases of the nervous system; Z83.3 Family history of diabetes mellitus; Z80.0 Family history of malignant neoplasm of digestive organs; Z80.3 Family history of malignant neoplasm of breast; Z82.61 Family history of arthritis
CPT/HCPCS: 36415; 36569; 43235; 45380; 45381; 71045; 71046; 74021; 74177; 76937; 77001; 80048; 80053; 81001; 82040; 82272; 82306; 82330; 82607; 82652; 82728; 82747; 83036; 83540; 83550; 83735; 84100; 84132; 84439; 84443; 84478; 85025; 85610; 85730; 86850; 86900; 86901; 86920; 88305; 88309; 93005; 93306; 94760; 96361; 96374; 99285

== ENCOUNTER 2018-05-12 09:15 | Inpatient (IN) | payer MEDICARE ==
[2018-05-12] MEDS ORDERED: SODIUM CHLORIDE 0.9% 1,000 ML IV ONE ×2 (09:21→12:34)
--- NOTE | 2018-05-12 09:23 | ED ---
General Adult HPI - General Chief complaint: Weakness Stated complaint: dehydration Time Seen by Provider: 05/12/18 09:15 Source: patient, EMS, RN notes reviewed Mode of arrival: EMS Limitations: no limitations - History of Present Illness Initial comments: This is an 82-year-old female presents emergency Department with a past history significant for an ileostomy which is quite about 9 months ago. According to staff at her facility she has been having quite a bit of output and is getting dehydrated. According to him he also had a high potassium of 5.5. Patient's also been feeling considerably weaker. They spoke with the primary medical care doctor and he wanted the patient transferred to the emergency department to get fluids and have a PICC line placed. Patient denies any chest pain difficulty breathing or shortness of breath. Patient denies any abdominal pain. Patient denies any nausea or vomiting. Patient denies any recent fever chills or cough per patient denies lightheadedness or dizziness. Patient just complains of generalized weakness. - Related Data Home Medications Medication Instructions Recorded Confirmed Levothyroxine Sodium [Synthroid] 125 mcg PO DAILY 08/31/15 05/12/18 Ergocalciferol (Vitamin D2) 50,000 unit PO Q30D 05/12/17 05/12/18 [Vitamin D2] Apixaban [Eliquis] 2.5 mg PO BID 12/17/17 05/12/18 Previous Rx's Medication Instructions Recorded Atorvastatin [Lipitor] 20 mg PO HS tab 12/28/17 Metoprolol Tartrate [Lopressor] 50 mg PO TID tab 12/28/17 Pantoprazole [Protonix] 40 mg PO DAILY tablet. 12/28/17 Ferrous Sulfate [Feosol] 325 mg PO DAILY #90 tab 03/24/18 Acetaminophen Tab [Tylenol] 650 mg PO Q4HR PRN tab 03/30/18 amLODIPine [Norvasc] 5 mg PO BID@1230,2100 tab 03/30/18 Allergies Allergy/AdvReac Type Severity Reaction Status Date / Time codeine Allergy Rash/Hives Verified 05/12/18 09:59 ciprofloxacin AdvReac Diarrhea Verified 05/12/18 09:59 Review of Systems ROS Statement: Those systems with pertinent positive or pertinent negative responses have been documented in the HPI. ROS Other: All systems not noted in ROS Statement are negative. 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 Chronic renal failure, hypertension, hyperlipidemia, hypothyroidism, history of rheumatic fever, history of scarlet fever, History of Any Multi-Drug Resistant Organisms: None Reported Past Surgical History: Adenoidectomy, Tonsillectomy Additional Past Surgical History / Comment(s): part of thyroid removed, ileostomy Past Anesthesia/Blood Transfusion Reactions: Unable to Obtain Additional Past Anesthesia/Blood Transfusion Reaction / Comment(s): patient states she had a hard time waking up after having anesthesia Past Psychological History: Unable to Obtain Smoking Status: Never smoker Past Alcohol Use History: None Reported Past Drug Use History: None Reported - Past Family History Father Family Medical History: No Reported History Additional Family Medical History / Comment(s): parkinsons Mother History Unknown: Yes Family Medical History: Cancer, Diabetes Mellitus Additional Family Medical History / Comment(s): colon cancer Sister(s) Additional Family Medical History / Comment(s): breast cancer General Exam Limitations: no limitations Course Vital Signs 05/12/18 05/12/18 09:16 10:59 Temperature 97.7 F Pulse Rate 94 86 Respiratory 18 16 Rate Blood Pressure 109/61 106/51 O2 Sat by Pulse 100 98 Oximetry Medical Decision Making - Medical Decision Making EKG shows normal sinus rhythm at 94 bpm DC interval 266 QRS is 76 QT interval 342 QTC is 427 per patient's EKG shows slight ST segment elevation in precordial leads V4 and the V5 Patient's troponin was mildly elevated so I did another repeat EKG no acute changes were noted. I spoke with Dr. Henning he agreed to admit the patient admitted the patient I wrote admitting orders. Repeated troponin and I hydrated the patient. EKG shows normal sinus rhythm at 85 bpm DC interval 182 QRS is 80 QT interval 366 QTC is 435. Patient's EKG shows no ST segment elevation or depression or T wave abnormalities are noted. - Lab Data Result diagrams: 05/12/18 11:08 05/12/18 11:08 Lab Results 05/12/18 05/12/18 05/12/18 Range/Units 11:08 11:08 11:08 WBC 8.7 (3.8-10.6) k/uL RBC 5.13 (3.80-5.40) m/uL Hgb 12.8 (11.4-16.0) gm/dL Hct 42.3 (34.0-46.0) % MCV 82.3 (80.0-100.0) fL MCH 24.9 L (25.0-35.0) pg MCHC 30.2 L (31.0-37.0) g/dL RDW 21.1 H (11.5-15.5) % Plt Count 336 (150-450) k/uL Neutrophils % 74 % Lymphocytes % 14 % Monocytes % 7 % Eosinophils % 2 % Basophils % 1 % Neutrophils # 6.4 (1.3-7.7) k/uL Lymphocytes # 1.2 (1.0-4.8) k/uL Monocytes # 0.6 (0-1.0) k/uL Eosinophils # 0.2 (0-0.7) k/uL Basophils # 0.1 (0-0.2) k/uL Hypochromasia Moderate Poikilocytosis Slight Anisocytosis Moderate Microcytosis Slight Sodium 132 L (137-145) mmol/L Potassium 4.7 (3.5-5.1) mmol/L Chloride 106 (98-107) mmol/L Carbon Dioxide 15 L (22-30) mmol/L Anion Gap 11 mmol/L BUN 75 H (7-17) mg/dL Creatinine 2.03 H (0.52-1.04) mg/dL Est GFR (CKD-EPI)AfAm 26 (>60 ml/min/1.73 sqM) Est GFR (CKD-EPI)NonAf 23 (>60 ml/min/1.73 sqM) Glucose 101 H (74-99) mg/dL Calcium 9.8 (8.4-10.2) mg/dL Magnesium 1.4 L (1.6-2.3) mg/dL Total Bilirubin 0.4 (0.2-1.3) mg/dL AST 25 (14-36) U/L ALT 38 (9-52) U/L Alkaline Phosphatase 57 (38-126) U/L Troponin I 0.107 H* (0.000-0.034) ng/mL Total Protein 6.6 (6.3-8.2) g/dL Albumin 3.5 (3.5-5.0) g/dL Disposition Clinical Impression: Dehydration, Elevated troponin, Renal insufficiency Disposition: ADMITTED IP TO THIS HOSP Referrals: Rolando Angel MD [Primary Care Provider] - 1-2 days Time of Disposition: 12:34
[2018-05-12 11:31] LABS: Anisocytosis Moderate; Basophils # (A) 0.1 k/uL (0-0.2); Basophils % (A) 1 %; Eosinophils # (A) 0.2 k/uL (0-0.7); Eosinophils % (A) 2 %; HCT 42.3 % (34.0-46.0); HGB 12.8 gm/dL (11.4-16.0); Hypochromasia Moderate; Lymphocytes # (A) 1.2 k/uL (1.0-4.8); Lymphocytes % (A) 14 %; MCH 24.9 pg (25.0-35.0); MCHC 30.2 g/dL (31.0-37.0); MCV 82.3 fL (80.0-100.0); Mean Platelet Volume 7.6; Microcytosis Slight; Monocytes # (A) 0.6 k/uL (0-1.0); Monocytes % (A) 7 %; Neutrophils # (A) 6.4 k/uL (1.3-7.7); Neutrophils % (A) 74 %; Platelet Count 336 k/uL (150-450); Poikilocytosis Slight; RBC 5.13 m/uL (3.80-5.40); RDW 21.1 % (11.5-15.5); WBC 8.7 k/uL (3.8-10.6)
[2018-05-12 11:39] LABS: Albumin 3.5 g/dL (3.5-5.0); Calcium 9.8 mg/dL (8.4-10.2); Magnesium 1.4 mg/dL (1.6-2.3); Potassium 4.7 mmol/L (3.5-5.1); Total Bilirubin 0.4 mg/dL (0.2-1.3); Total Protein 6.6 g/dL (6.3-8.2)
[2018-05-12] MEDS ORDERED: ACETAMINOPHEN TAB 325 MG TAB PO PRN (14:20)
[2018-05-12] MEDS: MAGNESIUM SULFATE-D5W PMX 1 GM in DEXTROSE/WATER 1 100ML.BAG IVPB SCH ×2 (16:16→17:28)
--- NOTE | 2018-05-12 18:58 | HP ---
HISTORY AND PHYSICAL This patient is an 82-year-old single white female. Her height is 5 feet 5 inches, weight 49.895 kg, BSA 1.54 m2, BMI 18 kg/m2. ALLERGIES: CODEINE and CIPROFLOXACIN. CHIEF COMPLAINT: The patient has been in [facility] and the nurse practitioner Olga Lidia called me regarding the patient's electrolyte imbalance with acute changes of creatinine and BUN with dehydration. They tried in the [facility] to put an IV and they failed. The PA Olga Lidia was thinking that the patient would have to have a PICC line because this problem has become recurrent, and the patient has been putting large output in her colostomy bag. They requested that the patient be sent to the hospital because of need for access, probably PICC line. HISTORY OF PRESENT ILLNESS: The patient has history of severe anemia. When she arrived at the hospital her hemoglobin was around 4 to 5. She was transfused. She had a CT scan subsequently that found that she had a cecal mass. At that time the Eliquis was been stopped and she was taken to surgery. She had removal of the mass. Subsequently she did not have any other chemo or radiation. She was placed at [facility] to continue her rehabilitation and because of her anemia that she had. Currently, as patient was in the [facility], she had laboratory tests that indicated that she had acute rise in the BUN and creatinine, more than 0.3, and at the same time she became dehydrated. She had an appointment with Nephrology; however, they requested that she be admitted for hydration. Subsequently, when patient came to the hospital, in the emergency room she was found also to have the acute changes in the creatinine and she also was found to have elevated troponin. For that purpose, the patient was admitted to the cardiac floor and monitored. Cardiology consultation was requested as well. Meanwhile, I had a discussion with the patient. She stated that she is in bed all the time. She is on Eliquis 2.5 mg twice a day. However, she was walking 2 months ago and now she could not stand up or walk. The patient has a history of stroke in August of this year that affected her voice, but after the stroke she was rehabilitated and was able to walk and to take care of her ADLs. Two months ago she was unable to walk and had more dependency on nursing staff. That was before the surgery on her colon with the colon resection and stoma on the right side. She also stated that she could not control her urine actively, and with that raising the question if there is any problem to make her unable to walk, with spinal stenosis or any other etiology. We will be consulting Dr. Galvan, neurologist, for evaluation and treatment as well. In the meantime, we will be continuing the hydration. OTHER MEDICAL PROBLEMS: 1. History of anemia. She is on iron. 2. History of GERD, pantoprazole. 3. History of heart irregularities. She is in sinus now with metoprolol tartrate. She is on Eliquis at this time. We will be consulting Cardiology for the reason of troponin elevation and the Eliquis use. We will consult Neurology for the history of stroke. 4. History of hypertension; however, now the blood pressure is on the low side. We will be discontinuing the amlodipine and observing the Eliquis. 5. History of hyperlipidemia. 6. History of hypertension. 7. Anemia. 8. Hypothyroidism. She is on levofloxacin. She is not on any antibiotic at this time. HOME MEDICATIONS: 1. Amlodipine 5 mg twice a day, decreased on admission to 2.5 mg twice a day. 2. Pantoprazole 40 mg daily. 3. Metoprolol tartrate 50 mg t.i.d. We will continue the same medication for controlling her heart. 4. Ferrous sulfate daily. 5. Vitamin D2 50,000 units once a week for 6 weeks. 6. Atorvastatin 20 mg at bedtime. 7. Eliquis 2.5 mg b.i.d. 8. Acetaminophen, Tylenol 650 q.4 hours p.r.n. REVIEW OF SYSTEMS: The patient had no other complaints. She did not feel bad and she did not have any chest pain. She had no shortness of breath. Some urine incontinence, wearing pull-ups, but she had a colostomy, right-sided, for the previous surgery. She has hypothyroidism with no evidence of diabetes. Hematologically she has anemia, which has been improving. Musculoskeletal: She has been unable to stand up or carry weight for the last 2 months only; prior to that she was able to walk and ambulate and do her ADLs. Further review of the 14 points was negative. No headache. No blurred vision. PHYSICAL EXAMINATION: The patient is conscious, alert. She had speech disturbance with the previous history of CVA. Her vital signs at the time of the admission showed temperature 97.6, pulse 81, respiratory rate 16, blood pressure 112/43 with the initial blood pressure 105/41, and she received IV fluid for hydration. Oxygen saturation 100%. HEENT: Head normocephalic, atraumatic. Pupils equal, reactive. Conjunctivae pink. Sclerae nonicteric. Nose was negative. No rhinitis. Ears normal. NECK: Supple. No bruits. No JVD. No thyromegaly. No lymphadenopathy. Trachea midline. CHEST: Clear to auscultation and percussion. However, she had mild kyphoscoliosis. No wheezes. No rhonchi. HEART: PMI in the 5th intercostal space, currently regular sinus rhythm on the current program. She had an EKG done in the emergency room which was normal sinus rhythm with underlying EKG changes indicating inferior infarction as well as anterolateral infarction. However, the patient herself denied any previous heart attack. The history of atrial fibrillation was considered. ABDOMEN: Soft. She has a right colostomy bag which is functioning, with no problem with the colostomy. EXTREMITIES: Right total knee arthroplasty. No edema. Pulses intact bilaterally. However, she can move her leg in the supine position up and down, but she could not stand on her legs or walk. The underlying etiological factor for inability to walk is unclear to me. I do not have the patient's old history, as Dr. Angel is not available. He is out of town. LABORATORY: White count 8.7, hemoglobin 12.8, hematocrit 42.3, platelet count 336. She had moderate hypochromasia and slight poikilocytosis as well as slight microcytosis. Her chemistry is indicating sodium 132, on the low side with hyponatremia; however, mild. Carbon dioxide 15, mildly acidotic. Creatinine 2.03 with BUN of 75. She had a previous appointment with Dr. Ramirez; however, that was in a week or 2, and we will be calling Dr. Ramirez for consultation. Her magnesium is 1.4, and we will be giving her 2 grams of magnesium for supplementation. Her alkaline phosphatase was elevated at 107. However, the liver function tests are normal. ASSESSMENT: 1. Acute kidney injury on top of chronic. 2. 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 3. Dehydration. 4. Difficulty to place access; however, in the ER they were able to place the IV line, and this will continue. Once the patient is stabilized, we will see if we can get access in case we need again to hydrate her with the underlying dehydration. 5. Underlying metabolic acidosis is mild. However, the lactic acid was not done. 6. Elevated troponin. We will consult Cardiology. 7. We will hydrate her. 8. We will consult Neurology for inability to stand up and walk. 9. Consult also Nephrology. Further treatment and investigation depending on the patient's condition. MMODL / IJN: [id number] /
[2018-05-12] MEDS: APIXABAN 2.5 MG TABLET PO SCH (20:35)
[2018-05-12] MEDS: ATORVASTATIN 20 MG TAB PO SCH (20:35)
[2018-05-12] MEDS: METOPROLOL TARTRATE 50 MG TAB PO SCH ×2 (20:35→21:29)
[2018-05-12] MEDS ORDERED: amLODIPine 5 MG TAB PO SCH (21:00)
--- NOTE | 2018-05-12 21:34 | P.CNNES ---
History of Present Illness Consult date: 05/12/18 History of Present Illness: The patient is an 82-year-old woman with history of recent stroke in November 2017. She was hospitalized at [facility] and started on Eliquis and Plavix. She developed internal bleeding and came back to the hospital and required blood transfusion and was released to a long-term. Plavix had been discontinued and she stayed on Eliquis. Patient again went back to the hospital with bleeding and anemia and required another transfusion. The patient is currently at [facility] and she is admitted to [facility] because of dehydration. Patient states that she is able to walk the assistance of a walker. She denies any trouble walking. She only admits to general weakness especially recently from having undergone surgery for colon cancer and having had some weight loss and general weakness and debility from her cancer. Review of Systems Constitutional: Denies chills, Denies fever Eyes: denies blurred vision, denies pain Ears, nose, mouth and throat: Denies headache, Denies sore throat Cardiovascular: Reports as per HPI Respiratory: Denies cough Genitourinary: Reports as per HPI Musculoskeletal: Denies myalgias Neurological: Denies numbness, Denies weakness Psychiatric: Denies anxiety, Denies depression Past Medical History Past Medical History: Atrial Fibrillation, Cancer, CVA/TIA, GERD/Reflux, Hyperlipidemia, Hypertension, Osteoarthritis (OA), Renal Disease, Thyroid Disorder Additional Past Medical History / Comment(s): Previous CVA back in 2009 received TPA, 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 Chronic renal failure, hypertension, hyperlipidemia, hypothyroidism, history of rheumatic fever, history of scarlet fever,uti-ecoli , vit d deficiency, colon cancer(sx-ileostomy), hx paroxysaml afib History of Any Multi-Drug Resistant Organisms: None Reported Past Surgical History: Adenoidectomy, Tonsillectomy Additional Past Surgical History / Comment(s): part of thyroid removed, colonoscopy, colectomy-2nd expolatroy sx same admission ended up with ileostomy Past Anesthesia/Blood Transfusion Reactions: Unable to Obtain Additional Past Anesthesia/Blood Transfusion Reaction / Comment(s): patient states she had a hard time waking up after having anesthesia. received blood trnsfusions- no reaction Smoking Status: Never smoker - Past Family History Father Family Medical History: No Reported History Additional Family Medical History / Comment(s): parkinsons Mother History Unknown: Yes Family Medical History: Cancer, Diabetes Mellitus Additional Family Medical History / Comment(s): colon cancer Sister(s) Additional Family Medical History / Comment(s): breast cancer Medications and Allergies Home Medications Medication Instructions Recorded Confirmed Type Levothyroxine Sodium [Synthroid] 125 mcg PO DAILY 08/31/15 05/12/18 History Ergocalciferol (Vitamin D2) 50,000 unit PO Q30D 05/12/17 05/12/18 History [Vitamin D2] Apixaban [Eliquis] 2.5 mg PO BID 12/17/17 05/12/18 History Atorvastatin [Lipitor] 20 mg PO HS tab 12/28/17 05/12/18 Rx Metoprolol Tartrate [Lopressor] 50 mg PO TID tab 12/28/17 05/12/18 Rx Pantoprazole [Protonix] 40 mg PO DAILY tablet. 12/28/17 05/12/18 Rx Ferrous Sulfate [Feosol] 325 mg PO DAILY #90 tab 03/24/18 05/12/18 Rx Acetaminophen Tab [Tylenol] 650 mg PO Q4HR PRN tab 03/30/18 05/12/18 Rx amLODIPine [Norvasc] 5 mg PO BID@1230,2100 tab 03/30/18 05/12/18 Rx Allergies Allergy/AdvReac Type Severity Reaction Status Date / Time codeine Allergy Rash/Hives Verified 05/12/18 09:59 ciprofloxacin AdvReac Diarrhea Verified 05/12/18 09:59 Physical Examination - Vital Signs Vital Signs: Vital Signs Temp Pulse Pulse Resp BP BP Pulse Ox 05/12/18 20:26 97.6 F 102 H 15 130/59 99 05/12/18 19:00 17 114/53 100 05/12/18 18:00 98 16 119/57 05/12/18 17:00 18 112/70 05/12/18 16:00 90 17 97/40 97 05/12/18 15:00 93 18 113/41 100 05/12/18 14:00 86 16 112/57 99 05/12/18 13:09 97.6 F 05/12/18 13:00 81 16 112/43 100 05/12/18 12:30 85 16 113/41 100 05/12/18 12:00 84 15 109/68 100 05/12/18 11:30 82 16 105/41 97 05/12/18 10:59 86 16 106/51 98 05/12/18 09:30 24 101/57 05/12/18 09:18 78 L 05/12/18 09:16 97.7 F 94 18 109/61 100 Intake and Output 05/12/18 05/12/18 05/12/18 06:59 14:59 22:59 Other: Weight 49.895 kg - Constitutional General appearance: cooperative - EENT EENT: hearing intact - Respiratory Respiratory: lungs clear - Cardiovascular Cardiovascular: regular rate, normal S1 - Neurologic Neurologic examination: Mental status: She was awake alert and oriented 3. There was no a aphasia or dysarthria. She did have right left confusion and finger agnosia. Next Cranial nerve examination: Cranial nerves II through XII grossly intact next Motor examination: Right hemiparesis asymptomatic Coordination: [id number] intact next Sensory examination: Intact Gait: Not tested. Results - Laboratory Findings CBC and BMP: 05/12/18 11:08 05/12/18 11:08 Abnormal Lab Findings: Abnormal Labs 05/12/18 05/12/18 05/12/18 11:08 11:08 11:08 MCH 24.9 L MCHC 30.2 L RDW 21.1 H Sodium 132 L Carbon Dioxide 15 L BUN 75 H Creatinine 2.03 H Glucose 101 H Magnesium 1.4 L Troponin I 0.107 H* 05/12/18 16:25 MCH MCHC RDW Sodium Carbon Dioxide BUN Creatinine Glucose Magnesium Troponin I 0.098 H* Assessment and Plan (1) Dehydration Current Visit: Yes Status: Acute SNOMED Code(s): 25416132 (2) History of stroke Current Visit: Yes Status: Acute SNOMED Code(s): 867746126 Plan: The patient is an 82-year-old woman with history of stroke in the summer of 2018. She has residual mild right hemiparesis. She is able to ambulate with assistance of a walker. She denies any falls or any problems with walking. She states her only symptom is general weakness and fatigue particularly after a recent diagnosis of colon cancer and her recent surgery and colostomy. She is admitted to the hospital with dehydration. Recommend continue Eliquis. Check CT brain.
[2018-05-13 04:48] LABS: Appearance,Urine Turbid (Clear); Bacteria,Urine Few /hpf; Bilirubin,Urine Negative (Negative); Blood,Urine Small (Negative); Color,Urine Yellow; Glucose,Urine (UA) Negative (Negative); Ketones,Urine Negative (Negative); Leukocyte Esterase,Urine Large (Negative); Nitrite,Urine Positive (Negative); PH, Urine 5.5 (5.0-8.0); Protein,Urine 1+ (Negative); RBC,Urine 6 /hpf (0-5); Specific Gravity,Urine 1.015 (1.001-1.035); Urobilinogen,Urine <2.0 mg/dL (<2.0)
[2018-05-13] MEDS ORDERED: LEVOTHYROXINE 125 MCG TAB PO SCH (06:30)
[2018-05-13 06:38] LABS: Calcium 9.4 mg/dL (8.4-10.2); Potassium 4.6 mmol/L (3.5-5.1)
[2018-05-13 07:04] LABS: Anisocytosis Moderate; Basophils # (A) 0.1 k/uL (0-0.2); Basophils % (A) 1 %; Eosinophils # (A) 0.2 k/uL (0-0.7); Eosinophils % (A) 3 %; HCT 40.3 % (34.0-46.0); Hypochromasia Marked; Lymphocytes # (A) 1.2 k/uL (1.0-4.8); Lymphocytes % (A) 18 %; MCH 24.9 pg (25.0-35.0); MCHC 29.9 g/dL (31.0-37.0); MCV 83.3 fL (80.0-100.0); Mean Platelet Volume 7.7; Microcytosis Slight; Monocytes # (A) 0.5 k/uL (0-1.0); Monocytes % (A) 8 %; Neutrophils # (A) 4.7 k/uL (1.3-7.7); Neutrophils % (A) 68 %; Platelet Count 301 k/uL (150-450); Poikilocytosis Slight; RBC 4.84 m/uL (3.80-5.40); RDW 20.8 % (11.5-15.5)
[2018-05-13] MEDS ORDERED: amLODIPine 2.5 MG TAB PO SCH (09:00)
--- NOTE | 2018-05-13 09:28 | P.NPCON ---
History of Present Illness - Reason for Consult acute renal failure - History of Present Illness Reason for consultation: Acute kidney injury History of present illness: Patient is a 82-year-old female seen in renal consultation for acute kidney injury. Patient presented creatinine is 1 and was elevated at 2.03 on admission yesterday. She received 1 L normal saline bolus and was started on normal saline at 100 mL an hour for maintenance fluids. Creatinine is down to 1.52 today. Patient states she has history of colon cancer and has an ileostomy. She noted high output from her ileostomy and felt progressively weaker over the last few days. She denies vomiting. Denies use of NSAIDs. Oral intake has been fair. Blood pressure has been running low in the systolic 90s. Denies history of diabetes. Denies family history of renal disease. No fever or chills. She is noted to be acidotic with a bicarbonate level of 13 today. Patient has history of CVA with mild right-sided hemiparesis. Vital signs are stable. General: The patient appeared well nourished and normally developed. HEENT: Head exam is unremarkable. Neck is without jugular venous distension. LUNGS: Lungs are clear to auscultation and percussion. Breath sounds decreased. HEART: Rate and Rhythm are regular. First and second heart sounds normal. No murmurs, rubs or gallops. ABDOMEN: Abdominal exam reveals normal bowel sounds. Non-tender and non- distended. No evidence of peritonitis. EXTREMITITES: No clubbing, cyanosis, or edema. 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 Chronic renal failure, hypertension, hyperlipidemia, hypothyroidism, history of rheumatic fever, history of scarlet fever,uti-ecoli , vit d deficiency, colon cancer(sx-ileostomy), hx paroxysaml afib History of Any Multi-Drug Resistant Organisms: None Reported Past Surgical History: Adenoidectomy, Tonsillectomy Additional Past Surgical History / Comment(s): part of thyroid removed, colonoscopy, [facility] ended up with ileostomy Past Anesthesia/Blood Transfusion Reactions: Unable to Obtain Additional Past Anesthesia/Blood Transfusion Reaction / Comment(s): patient states she had a hard time waking up after having anesthesia. received blood trnsfusions- no reaction Smoking Status: Never smoker - Past Family History Father Family Medical History: No Reported History Additional Family Medical History / Comment(s): parkinsons Mother History Unknown: Yes Family Medical History: Cancer, Diabetes Mellitus Additional Family Medical History / Comment(s): colon cancer Sister(s) Additional Family Medical History / Comment(s): breast cancer Medications and Allergies Home Medications Medication Instructions Recorded Confirmed Type Levothyroxine Sodium [Synthroid] 125 mcg PO DAILY 08/31/15 05/12/18 History Ergocalciferol (Vitamin D2) 50,000 unit PO Q30D 05/12/17 05/12/18 History [Vitamin D2] Apixaban [Eliquis] 2.5 mg PO BID 12/17/17 05/12/18 History Atorvastatin [Lipitor] 20 mg PO HS tab 12/28/17 05/12/18 Rx Metoprolol Tartrate [Lopressor] 50 mg PO TID tab 12/28/17 05/12/18 Rx Pantoprazole [Protonix] 40 mg PO DAILY tablet. 12/28/17 05/12/18 Rx Ferrous Sulfate [Feosol] 325 mg PO DAILY #90 tab 03/24/18 05/12/18 Rx Acetaminophen Tab [Tylenol] 650 mg PO Q4HR PRN tab 03/30/18 05/12/18 Rx amLODIPine [Norvasc] 5 mg PO BID@1230,2100 tab 03/30/18 05/12/18 Rx Allergies Allergy/AdvReac Type Severity Reaction Status Date / Time codeine Allergy Rash/Hives Verified 05/12/18 09:59 ciprofloxacin AdvReac Diarrhea Verified 05/12/18 09:59 Physical Exam Vitals: Vital Signs Temp Pulse Pulse Resp BP BP Pulse Ox 05/13/18 08:00 98 F 114 H 20 90/50 100 05/13/18 04:00 97.5 F L 101 H 15 92/61 100 05/13/18 00:00 97.4 F L 75 16 95/64 100 05/12/18 20:26 97.6 F 102 H 15 130/59 99 01/03/19 19:00 17 114/53 100 01/03/19 18:00 98 16 119/57 05/12/18 17:00 18 112/70 05/12/18 16:00 90 17 97/40 97 05/12/18 15:00 93 18 113/41 100 05/12/18 14:00 86 16 112/57 99 05/12/18 13:09 97.6 F 05/12/18 13:00 81 16 112/43 100 05/12/18 12:30 85 16 113/41 100 05/12/18 12:00 84 15 109/68 100 05/12/18 11:30 82 16 105/41 97 05/12/18 10:59 86 16 106/51 98 05/12/18 09:30 24 101/57 Intake and Output 05/12/18 05/13/18 05/13/18 22:59 06:59 14:59 Intake Total 800 800 Output Total 300 Balance 800 800 -300 Intake: Intake, IV Titration 800 800 Amount Sodium Chloride 0.9% 1, 800 800 000 ml @ 100 mls/hr IV . Q10H ONE Rx#:[id number] Output: Stool 300 Other: Voiding Method Incontinent Incontinent # Voids 1 3 Weight 49.5 kg Results - Lab Results Most recent lab results Calcium 9.4 mg/dL (8.4-10.2) 05/13/18 05:39 Magnesium 2.3 mg/dL (1.6-2.3) 05/13/18 05:39 05/13/18 05:39 05/13/18 05:39 Assessment and Plan Plan: Assessment: 1. Nonoliguric acute kidney injury mostly prerenal secondary to intravascular volume depletion from high ileostomy output. Creatinine 2.03 on admission and is down to 1.53 today. Baseline creatinine near 1. 2. Hypovolemic hyponatremia improved with IV hydration. 3. Metabolic acidosis secondary to acute kidney injury, IV fluids and GI losses. 4. History of CVA maintained on anticoagulation. CT of the brain pending. Neurology following. 5. Benign hypertension. Blood pressures on the lower side. 6. Hypomagnesemia from GI losses. Status post placement. Resolved. Plan: Discontinue normal saline. Start isotonic sodium bicarbonate drip to be run at 100 mL an hour. Add oral bicarb. Hold amlodipine if systolic blood pressure less than 120. Encourage oral intake. Repeat electrolytes in the morning. Thank you for the consultation. I will continue to follow the patient with you during her hospital stay.
[2018-05-13] MEDS: FERROUS SULFATE 325 MG TAB PO SCH (09:34)
[2018-05-13] MEDS: PANTOPRAZOLE 40 MG TABLET PO SCH (09:34)
[2018-05-13] MEDS: SODIUM BICARBONATE TAB 650 MG TAB PO SCH ×2 (09:40→21:15)
--- NOTE | 2018-05-13 09:43 | CT ---
EXAMINATION TYPE: CT brain wo con DATE OF EXAM: 05/13/2018 COMPARISON: 12/17/2017 INDICATION: Stroke DLP: 1063.4 mGycm, Automated exposure control for dose reduction was used. CONTRAST: None CT of the brain is performed utilizing 3 mm thick sections through the posterior fossa and 3 mm thick sections through the remaining calvarium. Study is performed within 24 hours of arrival to the [facility]. No abnormal hyperdensity is present to suggest an acute intracranial hemorrhage. No mass lesion is evident. No acute infarcts are evident. There is an old inferior medial left frontal lobe infarct. Some mild w atershed ischemia may be present on the left. This could be related to some atrophy. Ventricles and sulci are appropriate for the patient age. Paranasal sinuses and mastoid air cells within the [id number] are clear. IMPRESSIONS: 1. Old medial left frontal lobe infarct or encephalomalacia. 2. Chronic appearing ischemia or atrophy of the left watershed region. 3. Age-related atrophy. 4. No significant interval change.
[2018-05-13 10:14] LABS: T4, Free (Free Thyroxine) 2.54 ng/dL (0.78-2.19)
[2018-05-13] MEDS: DEXTROSE 5% IN WATER 1,000 ML with SODIUM BICARB (1 MEQ/ML) 150 ML IV SCH ×2 (10:29→23:55)
[2018-05-13] MEDS: APIXABAN 2.5 MG TABLET PO SCH ×2 (16:11→21:15)
[2018-05-13 16:23] LABS: Iron Saturation 36.36 (12.00-45.00)
--- NOTE | 2018-05-13 16:43 | P.CRDCN ---
History of Present Illness Consult date: 05/13/18 Requesting physician: Renato Henning Reason for Consult (text): Abnormal troponin Chief complaint: weakness and dehydration History of present illness: This is a pleasant 82-year-old female with history of hypertension, chronic kidney disease, history of prior CVA, hyperlipidemia, paroxysmal atrial fibrillation, history of a GI bleed in February of last year at which time patient was found to have colon cancer for which she underwent a colectomy. Patient presented to the hospital on this occasion with symptoms of weakness and dehydration. A cardiology consultation was requested because of abnormal troponin values. The patient did have an echocardiogram with Doppler study performed in March which revealed a normal left ventricular systolic function. EKG on arrival here showed a normal sinus rhythm with left axis deviation, nonspecific ST-T wave changes. CAT scan of the brain showed old medial left frontal lobe infarct. Chronic appearing ischemia or atrophy of the left watershed region. No significant interval change from previous. Blood pressure 94/50 with a heart rate in the 80s to 90s, 100% on room air. White blood cell count 7.0, hemoglobin 12.0, platelet count 301. Sodium 135, potassium 4.6, BUN 55 and creatinine 1.5. On admission the patient's BUN was 75 and creatinine was 2.0. Magnesium on admission 1.4, 2.3 this morning. Troponins 0.10, 0.09, 0.10. TSH level 0.015 with a free T4 of 2.5. Patient denies having any chest discomfort at any point in time, and breathing overall has been stable. 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 Chronic renal failure, hypertension, hyperlipidemia, hypothyroidism, history of rheumatic fever, history of scarlet fever,uti-ecoli , vit d deficiency, colon cancer(sx-ileostomy), hx paroxysaml afib History of Any Multi-Drug Resistant Organisms: None Reported Past Surgical History: Adenoidectomy, Tonsillectomy Additional Past Surgical History / Comment(s): part of thyroid removed, colonoscopy, [facility] same admission ended up with ileostomy Past Anesthesia/Blood Transfusion Reactions: Unable to Obtain Additional Past Anesthesia/Blood Transfusion Reaction / Comment(s): patient states she had a hard time waking up after having anesthesia. received blood trnsfusions- no reaction Smoking Status: Never smoker - Past Family History Father Family Medical History: No Reported History Additional Family Medical History / Comment(s): parkinsons Mother History Unknown: Yes Family Medical History: Cancer, Diabetes Mellitus Additional Family Medical History / Comment(s): colon cancer Sister(s) Additional Family Medical History / Comment(s): breast cancer Medications and Allergies Home Medications Medication Instructions Recorded Confirmed Type Levothyroxine Sodium [Synthroid] 125 mcg PO DAILY 08/31/15 05/12/18 History Ergocalciferol (Vitamin D2) 50,000 unit PO Q30D 05/12/17 05/12/18 History [Vitamin D2] Apixaban [Eliquis] 2.5 mg PO BID 12/17/17 05/12/18 History Atorvastatin [Lipitor] 20 mg PO HS tab 12/28/17 05/12/18 Rx Metoprolol Tartrate [Lopressor] 50 mg PO TID tab 12/28/17 05/12/18 Rx Pantoprazole [Protonix] 40 mg PO DAILY tablet. 12/28/17 05/12/18 Rx Ferrous Sulfate [Feosol] 325 mg PO DAILY #90 tab 03/24/18 05/12/18 Rx Acetaminophen Tab [Tylenol] 650 mg PO Q4HR PRN tab 03/30/18 05/12/18 Rx amLODIPine [Norvasc] 5 mg PO BID@1230,2100 tab 03/30/18 05/12/18 Rx Allergies Allergy/AdvReac Type Severity Reaction Status Date / Time codeine Allergy Rash/Hives Verified 05/12/18 09:59 ciprofloxacin AdvReac Diarrhea Verified 05/12/18 09:59 Physical Exam Vitals: Vital Signs Temp Pulse Pulse Resp BP BP Pulse Ox 05/13/18 11:35 97.5 F L 102 H 16 88/53 100 05/13/18 08:00 98 F 114 H 20 90/50 100 05/13/18 04:00 97.5 F L 101 H 15 92/61 100 05/13/18 00:00 97.4 F L 75 16 95/64 100 05/12/18 20:26 97.6 F 102 H 15 130/59 99 05/12/18 19:00 17 114/53 100 05/12/18 18:00 98 16 119/57 05/12/18 17:00 18 112/70 05/12/18 16:00 90 17 97/40 97 Intake and Output 05/13/18 05/13/18 05/13/18 06:59 14:59 22:59 Intake Total 800 460 Output Total 800 400 Balance 800 -340 -400 Intake: Intake, IV Titration 800 Amount Sodium Chloride 0.9% 1, 800 000 ml @ 100 mls/hr IV . Q10H ONE Rx#:[id number] Oral 460 Output: Stool 800 400 Other: Voiding Method Incontinent Incontinent # Voids 3 Weight 49.5 kg PHYSICAL EXAMINATION: GENERAL: 82-year-old female female in no acute distress at the time of my examination HEENT: Head is atraumatic, normocephalic. Pupils equal, round. Sclera anicteric. Conjunctiva are clear. Mucous membranes of the mouth are moist. Neck is supple. There is no elevated jugular venous pressure. No carotid bruit is heard. HEART EXAMINATION: Heart S1, S2 irregularly irregular . No murmur or gallop heard. CHEST EXAMINATION: Lungs are clear to auscultation and precussion. No chest wall tenderness is noted on palpation or with deep breathing. ABDOMEN: Soft, nontender. Bowel sounds are heard. No organomegaly noted. EXTREMITIES: 2+ peripheral pulses with no evidence of peripheral edema and no calf tenderness noted. NEUROLOGIC patient is awake, alert and oriented X3. . Results 05/13/18 05:39 05/13/18 05:39 Cardiac Enzymes 05/12/18 05/12/18 Range/Units 16:25 23:16 Troponin I 0.098 H* 0.108 H* (0.000-0.034) ng/mL CBC 05/13/18 Range/Units 05:39 WBC 7.0 (3.8-10.6) k/uL RBC 4.84 (3.80-5.40) m/uL Hgb 12.0 (11.4-16.0) gm/dL Hct 40.3 (34.0-46.0) % Plt Count 301 (150-450) k/uL Comprehensive Metabolic Panel 05/13/18 Range/Units 05:39 Sodium 135 L (137-145) mmol/L Potassium 4.6 (3.5-5.1) mmol/L Chloride 115 H (98-107) mmol/L Carbon Dioxide 13 L (22-30) mmol/L BUN 55 H (7-17) mg/dL Creatinine 1.52 H (0.52-1.04) mg/dL Glucose 88 (74-99) mg/dL Calcium 9.4 (8.4-10.2) mg/dL Current Medications Generic Name Dose Route Start Last Admin Trade Name Freq PRN Reason Stop Dose Admin Acetaminophen 650 mg 05/12/18 14:20 Tylenol Tab PO Q4HR PRN Fever and/or Mild Pain Apixaban 2.5 mg 05/12/18 21:00 05/12/18 20:35 Eliquis PO 2.5 mg BID SHABBIR Administration Atorvastatin Calcium 20 mg 05/12/18 21:00 05/12/18 20:35 Lipitor PO 20 mg HS SHABBIR Administration Ergocalciferol 50,000 unit 06/10/18 09:00 Vitamin D2 PO Q30D SHABBIR Ferrous Sulfate 325 mg 05/13/18 09:00 05/13/18 09:34 Feosol PO 325 mg DAILY SHABBIR Administration Sodium Bicarbonate 150 ml/ 1,150 mls @ 100 mls/hr 05/13/18 10:00 05/13/18 10: 29 Dextrose/Water IV 100 mls/hr .[id number] SHABBIR Administration Ceftriaxone Sodium 1,000 mg/ 50 mls @ 100 mls/hr 05/14/18 00:00 Sodium Chloride IVPB Q12H SHABBIR Levothyroxine Sodium 88 mcg 05/14/18 06:30 Synthroid PO DAILY@0630 SHABBIR Pantoprazole Sodium 40 mg 05/13/18 09:00 05/13/18 09:34 Protonix PO 40 mg DAILY SHABBIR Administration Sodium Bicarbonate 650 mg 05/13/18 09:30 05/13/18 09:40 Sodium Bicarbonate Tab PO 650 mg BID SHABBIR Administration Intake and Output 05/13/18 05/13/18 05/13/18 06:59 14:59 22:59 Intake Total 800 460 Output Total 800 400 Balance 800 -340 -400 Intake: Intake, IV Titration 800 Amount Sodium Chloride 0.9% 1, 800 000 ml @ 100 mls/hr IV . Q10H ONE Rx#:[id number] Oral 460 Output: Stool 800 400 Other: Voiding Method Incontinent Incontinent # Voids 3 Weight 49.5 kg 05/13/18 05:39 05/13/18 05:39 EKG Interpretations (text) EKG shows normal sinus rhythm with left axis deviation and nonspecific ST-T wave changes Assessment and Plan Plan: Assessment and plan #1 symptoms of weakness and dehydration, likely secondary to intravascular volume depletion from high ileostomy output. Creatinine on admission 2.0, 1.5 today. Baseline creatinine around 1 #2 paroxysmal atrial fibrillation #3 hypertension #4 prior CVA #5 hypomagnesemia, likely secondary from GI loss #6 abnormal troponins, trend not suggestive of acute coronary syndrome, likely secondary to abnormal renal function. Patient did have an echocardiogram with Doppler study performed in March which revealed a normal left ventricular systolic function. We will repeat a limited echo and assess the LV function. If her LV function remains normal we will follow her along with you as an as-needed basis only, please don't hesitate to call with any questions. DNP note has been reviewed, I agree with a documented findings and plan of care. Patient was seen and examined.
--- NOTE | 2018-05-13 18:31 | ECHOF ---
Referral Reason:limited, assess lvf MEASUREMENTS -------- HEIGHT: 165.1 cm WEIGHT: 49.4 kg BP: 94/51 IVSd: 1.2 cm (0.6 - 1.1) LVIDd: 2.5 cm (3.9 - 5.3) LVPWd: 1.2 cm (0.6 - 1.1) IVSs: 1.5 cm LVIDs: 1.3 cm LVPWs: 1.5 cm Ao Diam: 3.2 cm (2.0 - 3.7) FINDINGS -------- Atrial fibrillation. This was a technically good study. Limited Study for assessment of left ventricular function. Prev ious full study performed on 03/19/18 The left ventricular size is normal. Left ventricular wall thickness is normal. Left ventricular systolic function is hyperdynamic with an estimated EF of >70%. CONCLUSIONS -------- 1. Atrial fibrillation. 2. This was a technically good study. 3. Limited Study for assessment of left ventricular function. 4. Previous full study performed on 03/19/18 5. The left ventricular size is normal. 6. Left ventricular wall thickness is normal. 7. Left ventricular systolic function is hyperdynamic with an estimated EF of >70%. RAISER HELPER: Baljinder Orr RDCS
--- NOTE | 2018-05-13 19:17 | P.PN ---
Progress Note - Text Progress Note Date: 05/13/18 (Patient of Dr. Rolando Angel) Progress note date of service 05/13/2018. Patient of Dr. Rolando Angel. Patient seen and evaluated today. Reviewed the laboratory with the underlying elevated troponin. And high output of the ileostomy and we consulted the surgeon Dr. Antonio who has been did the surgery as well as the GI Dr. Green . Patient already seen by Dr. Ramirez and that he address the issue of high output of electrolyte into the ileostomy bag and he addressed that how can we decreased that output and at this time we consulted the GI and the surgeon that did the surgery. Her current vital sign today is normal temperature 98.8 exemplary and pulse 99 respiratory rate 16 and she had in the low blood pressure she was 88/54 and 94/ 51 with a mean was 64 and 65 she had oxygen saturation 100%. Patient admitted with the creatinine and the BUN was elevated with the underlying acute renal injury and found that she had high output with the underlying chronic kidney disease stage III. 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 Otherwise we keep the patient hydrated and incomplete included the IV hydration and Dr. Ramirez has been helping us with the adding bicarb as the patient was also has metabolic acidosis. Her laboratory her hemoglobin 12 and her white count is 7 and hematocrit is 40.3 , her platelet count is normal and is 301. On the electrolyte patient was admitted admitted was 132 sodium now 135 improving however the chloride is increased the low back from 106 to 1:15 and her potassium is still stable and the BUN was on admission 75 and now is 55 with progressive improvement with hydration., Creatinine was 2.03 and currently 1.52 . Her carbon dioxide was 15 and now is 13 and the patient started on sodium bicarb as well as IV fluid as bicarb with the metabolic acidosis. I Patient Patient had the low magnesium 1.4 on 05/12/2018 and she received 2 g and her magnesium today corrected and currently 2.3. Estimated glomerular filtration rate for non- 32 today yesterday is 23 and it's with the hydration her glomerular filtration rate become 32 with the improvement. Her blood sugar is normal. And her liver enzyme is normal. And her troponin has been elevated and 0.107 second set is 0.098 surgeon set is 0.108. Cardiology consultation was obtained and dictated by Inés bello the PA for cardiology and the indicating that this is here not related to the heart and no heart event and the indicating these secondary her renal disease. Her TSH is low less than 0.015 her free T4 is high 2.54 indicating iatrogenic hyperthyroidism and week cutting down the supplementation with the levothyroxine to 88 g per day order was given already. The UA indicating that he had TURP and she had small blood but positive nitrite and her WBC more than 182 high and we send for culture of the urine and patient started on Rocephin IV piggyback 1 g every 12 hours until we have the culture results On examination patient's conscious alert oriented and she is able to communicate that she was seen also by Dr. Galvan and she found in her CAT scan that was ordered CAT scan results indicating that #1 hold the medial left frontal lobe infarction. Or encephalomalacia. Next #2 chronic appearing ischemia or atrophy of the left watershed region. #3 age-related atrophy #4 no significant changes. Impression of Dr. Galvan Is a first name dehydration and history of stroke in the past The echocardiogram result which is limited showed that atrial fibrillation and the left ventricular function was also assessed in 03/19/2018 and she had atrial fibrillation and technical he was with a steady and limited study as well with assessment of left ventricular function and her left ventricular systolic function is hyperdynamic with estimated ejection fraction of more than 70%. The assessment of the cardiology stated that #1 symptoms of weakness dehydration and likely secondary to intravascular volume depletion from ileostomy high output. Baseline creatinine was 1. She has #2 paroxysmal atrial fibrillation #3 history of hypertension currently she is hypotensive. She had a prior CVA. And she had history of hypomagnesemia secondary to GI loss and she had abnormal troponin trend is not suggestive of acute coronary artery syndrome and the likely secondary abnormal renal function and as by the cardiology.. Nephrology consultation indicating nonoliguric acute kidney injury and mostly pre-renal secondary to high ileostomy output. Next hypovolemic hyponatremic and treated with IV hydration and improving. #3 metabolic acidosis secondary to acute kidney injury and GI losses. #4 CVA and maintain on anticoagulant. #5 benign hypertension currently is in the hypotensive side #6 hypomagnesemia secondary to the GI loss and Dr. Ramirez did adjust her medication as well as started the but sodium bicarb. Patient seen and examined conscious alert oriented 3 she has no pain. I did look at the ileostomy bag and she had extensive amount of fluid more than stools. HEENT was negative neck was supple no JVD no thyromegaly no lymphadenopathy trachea midline. Chest was clear to auscultation and percussion. No wheezes no rhonchi's. Heart: She had a paroxysmal atrial fibrillation of the time of examination was regular sinus. Abdomen she had the right ileostomy bag after she had the colon was removed with the cancer at the cecal area with the high output of fluid into the bag. Extremities: NO EDEMA AND POSITIVE PULSES neurologically: She had history of stroke as mentioned above and associated with inability to walk. Assessment: And plan #1 high output ileostomy bag of fluid resulted in abnormal electrolyte and dehydration, and prerenal acidemia as well as hypomagnesemia as well as acute renal injury. #2 mild anemia stable at this time with no iron deficiency. Number #3 status post cecal resection of colon cancer adenocarcinoma and placement of ileostomy bag. #4 Dr. Ramirez recommended consultation with GI as well as surgeon to resolve a the issue of high ileostomy put out and do the need of chronic infusion of IV electrolytes and bicarb, or if any treatment needs to be done we will be asking the both the GI or and the gastroenterology to help us with these current problem i.e. if the patient goes back to [facility] are we going to transfuse her with the fluid all the time to maintain stability or not or putting a PICC line or putting any other device or correcting the problem. We will check her laboratory tomorrow, consultation with the above [employer] consultant ordered thank you
[2018-05-13] MEDS: ATORVASTATIN 20 MG TAB PO SCH (21:15)
[2018-05-14] MEDS: LEVOTHYROXINE 88 MCG TAB PO SCH (05:18)
[2018-05-14 07:29] LABS: Anisocytosis Moderate; Basophils # (A) 0.1 k/uL (0-0.2); Basophils % (A) 1 %; Eosinophils # (A) 0.2 k/uL (0-0.7); Eosinophils % (A) 3 %; HCT 36.9 % (34.0-46.0); HGB 11.3 gm/dL (11.4-16.0); Hypochromasia Moderate; Lymphocytes # (A) 1.1 k/uL (1.0-4.8); Lymphocytes % (A) 18 %; MCH 25.2 pg (25.0-35.0); MCHC 30.7 g/dL (31.0-37.0); MCV 82.3 fL (80.0-100.0); Mean Platelet Volume 7.6; Microcytosis Moderate; Monocytes # (A) 0.5 k/uL (0-1.0); Monocytes % (A) 8 %; Neutrophils # (A) 4.2 k/uL (1.3-7.7); Neutrophils % (A) 68 %; Platelet Count 299 k/uL (150-450); RBC 4.49 m/uL (3.80-5.40); RDW 21.2 % (11.5-15.5); WBC 6.3 k/uL (3.8-10.6)
[2018-05-14 08:03] LABS: Calcium 8.6 mg/dL (8.4-10.2)
[2018-05-14 08:06] LABS: Magnesium 1.7 mg/dL (1.6-2.3); Potassium 3.8 mmol/L (3.5-5.1)
[2018-05-14] MEDS: PANTOPRAZOLE 40 MG TABLET PO SCH (08:42)
[2018-05-14] MEDS: METOPROLOL TARTRATE 50 MG TAB PO SCH ×2 (08:42→20:20)
[2018-05-14] MEDS: SODIUM BICARBONATE TAB 650 MG TAB PO SCH ×4 (08:42→20:21)
[2018-05-14] MEDS: FERROUS SULFATE 325 MG TAB PO SCH (08:42)
[2018-05-14] MEDS: APIXABAN 2.5 MG TABLET PO SCH ×2 (08:43→20:20)
[2018-05-14] MEDS: MAGNESIUM SULFATE-D5W PMX 1 GM in DEXTROSE/WATER 1 100ML.BAG IVPB SCH ×2 (09:20→11:32)
--- NOTE | 2018-05-14 10:28 | P.PN ---
Subjective Progress Note Date: 05/14/18 Principal diagnosis: This is an 82-year-old female with acute kidney injury secondary to volume depletion likely from decreased intake and increase in the colostomy output. She is responding to IV fluids with creatinine coming down. Additionally she has an element of non-gap acidosis from the colostomy output She is also known with atrial fibrillation paroxysmal, chronic kidney disease, hypertension, history of prior CVA. She is now feeling better and has better appetite. She is on IV fluid with 3 A of bicarb Objective - Vital Signs Vital signs: Vital Signs Temp 97.7 F 05/14/18 08:00 Pulse 170 H 05/14/18 08:00 Resp 17 05/14/18 08:00 BP 104/59 05/14/18 08:00 Pulse Ox 99 05/14/18 08:00 Intake & Output 05/13/18 05/14/18 05/14/18 18:59 06:59 18:59 Intake Total 580 118 Output Total 1775 400 150 Balance -1195 -400 -32 Weight 53.6 kg Intake: Oral 580 118 Output: Stool 1775 400 150 Other: Voiding Method Incontinent Incontinent Incontinent # Voids 1 1 On exam she looks somewhat depressed awake alert. HEENT exam no JVP neck is supple no facial asymmetry Lungs are clear to auscultation good air entry bilaterally Heart sounds are unremarkable for any murmur rub gallop Abdomen soft nontender, she has a colostomy bag Extremity examination reveals no edema Neurologically awake alert oriented but generalized weakness cc is unable to walk. She is had in the past CVA but she is able to move all her limbs equally well - Labs CBC & Chem 7: 05/14/18 06:20 05/14/18 06:20 Labs: Abnormal Lab Results - Last 24 Hours (Table) 05/13/18 05/14/18 05/14/18 Range/Units 05:39 06:20 06:20 Hgb 11.3 L (11.4-16.0) gm/dL MCHC 30.7 L (31.0-37.0) g/dL RDW 21.2 H (11.5-15.5) % Chloride 112 H (98-107) mmol/L Carbon Dioxide 17 L (22-30) mmol/L BUN 44 H (7-17) mg/dL Creatinine 1.25 H (0.52-1.04) mg/dL Glucose 103 H (74-99) mg/dL Ferritin 365.7 H (10.0-291.0) ng/mL Microbiology - Last 24 Hours (Table) 05/13/18 04:12 Urine Culture - Preliminary Urine,Clean Catch Assessment and Plan Assessment: Impression 1. Acute kidney injury from decreased intake and colostomy output improving with IV fluids. Creatinine peaked at 2.03 and is down to 1.25 today 2. Non-gap metabolic acidosis from GI loss of bicarb, on IV bicarb drip. 3. Hypovolemic hyponatremia resolved sodium is 138. Recommendation. 1. Continue IV fluids for 1 more day and then we can discontinue it. 2. Start oral bicarb 6 and 50 4 times a day
[2018-05-14] MEDS ORDERED: SODIUM CHLORIDE 0.9% 500 ML 500 ML IV ONE ×2 (12:10→15:00)
--- NOTE | 2018-05-14 12:49 | P.PN ---
Subjective Progress Note Date: 05/14/18 (Hypotensive) Principal diagnosis: #1 acute kidney injury on the top of chronic kidney disease stage III/stage IV, prerenal, due to colostomy ileostomy output. 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 #3 underlying history of severe anemia in the prior admission has been improved and corrected after the surgery with the blood transfusion and iron transfusion. #4 chronic atrial fibrillation currently on Elliqes orally. With the underlying rapid ventricular response patient received metoprolol 50 mg twice a day caused improvement of the heart rate from 170-90. However blood pressure dropped from 104/59-80/42. #5 hypotension with 80/42 will resuscitate with volume expansion with IV bolus normal saline 500 mL 2. #6 computed tomography scan indicating old medial left frontal lobe infarction/ encephalomalacia. Chronic appearing ischemic/atrophy of the left watershed region. #7 hypovolemic and hyponatremic improved. #8 metabolic acidosis associated with high output in the colostomy. On sodium bicarb by nephrology. #9 urinary tract infection with gram-negative ID is not available, patient on Rocephin toes the results of the cultures, patient has ALLERGY to ciprofloxacin. Progress note date of service 05/14/2018 18 Patient seen evaluated: She is conscious alert oriented able to answer the question and she is feeling better. She still have the volume decreased with the high output in the colostomy, we consulted surgeon Dr. Carranza who did the surgery, also will do gastroenterology to help us in clearing this issue of high output with the abnormal electrolytes and continue his problem with dehydration. With the even the question to put a PICC line, how long we'll leave that PICC line in the arm, and what did the issue of the [facility] to accept the patient continuously on the fluid IV. Currently the cardiology did not see her today and we had the CT question of abnormal thoracic aorta, also he atrial fibrillation with the rapid ventricular response with a heart rate 117 which has been now improved to 90 but her blood pressure dropped with the beta blockers. In regard of the gram-negative bacillary I we started the patient on the Rocephin waiting for the culture to adjust the antibiotic. Her laboratory indicating that her hemoglobin 11.3, white count 6.3 and hematocrit 36.9. Chemistry sodium 138 corrected, potassium 3.8, chloride 112, carbon dioxide 17 improved but not completely resolved. And BUN of 44 and creatinine 1.25 and her baseline is 1. Her glomerular filtration rate for non- 41 and her magnesium 1.7 which is also dropping again from losing through the GI. Admission found that she had TSH was <.015 and patient with history of hypothyroidism and she was taken 125 g of thyroid and we change it to a microgram only and future to be rechecked again to see if the thyroid has been adjusted. Her elevated troponin, seen by cardiology and their impression that's related to the kidney function. On examination: Patient is conscious alert oriented feeling comfortable in spite of the blood pressure is low no shortness of breath, and able to eat. HEENT was negative neck was supple natural teeth Chest is clear no wheezes no rhonchi's no rales heart was regular sinus rhythm and abdomen is soft positive bowel sounds and extremities no edema colostomy bag was exchanged we don't know exactly how much output today on 05/13/2018 in the colostomy bag 1325 mL output in that back. Extremities no edema and positive pulses Patient incontinent of voiding urine. Patient still hypotensive and will start the bolus 2 500 mL and we will be waiting for the consultation of the gastroenterology and the surgeon. Prognosis is currently guarded with the hypotension, atrial fibrillation, fluctuating from rapid ventricular response to normal associated with drop of blood pressure. Objective - Vital Signs Vital signs: Vital Signs Temp 97.0 F L 05/14/18 11:34 Pulse 90 05/14/18 11:42 Resp 17 05/14/18 11:42 BP 80/42 05/14/18 11:34 Pulse Ox 99 05/14/18 11:34 Intake & Output 05/13/18 05/14/18 05/14/18 18:59 06:59 18:59 Intake Total 580 318 Output Total 1775 400 250 Balance -1195 -400 68 Weight 53.6 kg Intake: IV 200 Magnesium Sulfate-D5w Pmx 200 1 gm In Dextrose/Water 1 100ml.bag @ 100 mls/hr IVPB Q1H [facility] Rx#: [id number] Oral 580 118 Output: Stool 1775 400 250 Other: Voiding Method Incontinent Incontinent Incontinent # Voids 1 1 1 - Labs CBC & Chem 7: 05/14/18 06:20 05/14/18 06:20 Labs: Abnormal Lab Results - Last 24 Hours (Table) 05/13/18 05/14/18 05/14/18 Range/Units 05:39 06:20 06:20 Hgb 11.3 L (11.4-16.0) gm/dL MCHC 30.7 L (31.0-37.0) g/dL RDW 21.2 H (11.5-15.5) % Chloride 112 H (98-107) mmol/L Carbon Dioxide 17 L (22-30) mmol/L BUN 44 H (7-17) mg/dL Creatinine 1.25 H (0.52-1.04) mg/dL Glucose 103 H (74-99) mg/dL Ferritin 365.7 H (10.0-291.0) ng/mL Microbiology - Last 24 Hours (Table) 05/13/18 04:12 Urine Culture - Preliminary Urine,Clean Catch Gram Neg Bacilli
[2018-05-14] MEDS: LOPERAMIDE 2 MG CAP PO SCH ×3 (14:56→20:22)
[2018-05-14] MEDS: DEXTROSE 5% IN WATER 1,000 ML with SODIUM BICARB (1 MEQ/ML) 150 ML IV SCH (14:59)
--- NOTE | 2018-05-14 16:45 | P.GSCN ---
History of Present Illness Consult date: 05/14/18 History of present illness: 82 y/o female well known to surgical service who presents with ALEXEI and increased output from ileostomy. She recently underwent partial colectomy with loop ileostomy placement. She states that she is feeling much better today since getting IV fluids. There was 2300ml out in the last 24 hours. 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 Chronic renal failure, hypertension, hyperlipidemia, hypothyroidism, history of rheumatic fever, history of scarlet fever,uti-ecoli , vit d deficiency, colon cancer(sx-ileostomy), hx paroxysaml afib History of Any Multi-Drug Resistant Organisms: None Reported Past Surgical History: Adenoidectomy, Tonsillectomy Additional Past Surgical History / Comment(s): part of thyroid removed, colonoscopy, colectomy-2nd expolatroy sx same admission ended up with ileostomy Past Anesthesia/Blood Transfusion Reactions: Unable to Obtain Additional Past Anesthesia/Blood Transfusion Reaction / Comm: patient states she had a hard time waking up after having anesthesia. received blood trnsfusions- no reaction Smoking Status: Never smoker - Past Family History Father Family Medical History: No Reported History Additional Family Medical History / Comment(s): parkinsons Mother History Unknown: Yes Family Medical History: Cancer, Diabetes Mellitus Additional Family Medical History / Comment(s): colon cancer Sister(s) Additional Family Medical History / Comment(s): breast cancer Medications and Allergies Home Medications Medication Instructions Recorded Confirmed Type Levothyroxine Sodium [Synthroid] 125 mcg PO DAILY 08/31/15 05/12/18 History Ergocalciferol (Vitamin D2) 50,000 unit PO Q30D 05/12/17 05/12/18 History [Vitamin D2] Apixaban [Eliquis] 2.5 mg PO BID 12/17/17 05/12/18 History Atorvastatin [Lipitor] 20 mg PO HS tab 12/28/17 05/12/18 Rx Metoprolol Tartrate [Lopressor] 50 mg PO TID tab 12/28/17 05/12/18 Rx Pantoprazole [Protonix] 40 mg PO DAILY tablet. 12/28/17 05/12/18 Rx Ferrous Sulfate [Feosol] 325 mg PO DAILY #90 tab 03/24/18 05/12/18 Rx Acetaminophen Tab [Tylenol] 650 mg PO Q4HR PRN tab 03/30/18 05/12/18 Rx amLODIPine [Norvasc] 5 mg PO BID@1230,2100 tab 03/30/18 05/12/18 Rx Allergies Allergy/AdvReac Type Severity Reaction Status Date / Time codeine Allergy Rash/Hives Verified 05/12/18 09:59 ciprofloxacin AdvReac Diarrhea Verified 05/12/18 09:59 Surgical - Exam Osteopathic Statement: *. No significant issues noted on an osteopathic structural exam other than those noted in the History and Physical/Consult. Vital Signs Temp Pulse Resp BP Pulse Ox 97.7 F 94 18 109/61 100 05/12/18 09:16 05/12/18 09:16 05/12/18 09:16 05/12/18 09:16 05/12/18 09:16 - General well developed, well nourished, no distress - Respiratory normal expansion, normal respiratory effort - Cardiovascular Rhythm: regular - Abdomen ostomy patent and pink with liquid stool in bag Abdomen: soft, non tender - Psychiatric oriented to time, oriented to person, oriented to place Results - Labs 05/14/18 06:20 05/14/18 06:20 Abnormal Lab Results - Last 24 Hours (Table) 05/14/18 05/14/18 Range/Units 06:20 06:20 Hgb 11.3 L (11.4-16.0) gm/dL MCHC 30.7 L (31.0-37.0) g/dL RDW 21.2 H (11.5-15.5) % Chloride 112 H (98-107) mmol/L Carbon Dioxide 17 L (22-30) mmol/L BUN 44 H (7-17) mg/dL Creatinine 1.25 H (0.52-1.04) mg/dL Glucose 103 H (74-99) mg/dL Microbiology - Last 24 Hours (Table) 05/13/18 04:12 Urine Culture - Preliminary Urine,Clean Catch Gram Neg Bacilli Diabetes panel 05/14/18 Range/Units 06:20 Sodium 138 (137-145) mmol/L Potassium 3.8 (3.5-5.1) mmol/L Chloride 112 H (98-107) mmol/L Carbon Dioxide 17 L (22-30) mmol/L BUN 44 H (7-17) mg/dL Creatinine 1.25 H (0.52-1.04) mg/dL Glucose 103 H (74-99) mg/dL Calcium 8.6 (8.4-10.2) mg/dL Calcium panel 05/14/18 Range/Units 06:20 Calcium 8.6 (8.4-10.2) mg/dL Pituitary panel 05/14/18 Range/Units 06:20 Sodium 138 (137-145) mmol/L Potassium 3.8 (3.5-5.1) mmol/L Chloride 112 H (98-107) mmol/L Carbon Dioxide 17 L (22-30) mmol/L BUN 44 H (7-17) mg/dL Creatinine 1.25 H (0.52-1.04) mg/dL Glucose 103 H (74-99) mg/dL Calcium 8.6 (8.4-10.2) mg/dL Adrenal panel 05/14/18 Range/Units 06:20 Sodium 138 (137-145) mmol/L Potassium 3.8 (3.5-5.1) mmol/L Chloride 112 H (98-107) mmol/L Carbon Dioxide 17 L (22-30) mmol/L BUN 44 H (7-17) mg/dL Creatinine 1.25 H (0.52-1.04) mg/dL Glucose 103 H (74-99) mg/dL Calcium 8.6 (8.4-10.2) mg/dL Assessment and Plan Assessment: ALEXEI, increased ileostomy output Plan: Continue IV hydration, plan for loparamide 2mg QID and increase as needed up to 4mgQID to slow output. Goal less than 1500cc
--- NOTE | 2018-05-14 17:33 | P.PN ---
Subjective Progress Note Date: 05/14/18 The patient is an 82-year-old woman admitted to the hospital with dehydration. She is having acute kidney injury as well as chronic kidney disease. She has a history of recent colon cancer and chronic atrial fibrillation. She has history of recent stroke with right-sided weakness. The patient has no new complaints. She is resting comfortably in bed. She states she has not been up but when asked about any new weakness she denied any new focal weakness or speech or swallowing trouble. Objective - Vital Signs Vital signs: Vital Signs Temp 98.5 F 05/14/18 14:52 Pulse 82 05/14/18 14:55 Resp 17 05/14/18 14:55 BP 89/54 05/14/18 14:52 Pulse Ox 99 05/14/18 14:52 Intake & Output 05/13/18 05/14/18 05/14/18 18:59 06:59 18:59 Intake Total 580 588 Output Total 1775 400 450 Balance -1195 -400 138 Weight 53.6 kg Intake: IV 210 Invasive Line 2 10 Magnesium Sulfate-D5w Pmx 200 1 gm In Dextrose/Water 1 100ml.bag @ 100 mls/hr IVPB Q1H [facility] Rx#: [id number] Oral 580 378 Output: Stool 1775 400 450 Other: Voiding Method Incontinent Incontinent Incontinent # Voids 1 1 1 - Constitutional General appearance: Present: average body habitus - EENT ENT: Present: hearing grossly normal - Respiratory Respiratory: bilateral: CTA - Cardiovascular Rhythm: regular - Neurologic Neurologic Comment(s): Neurologic examination: X Mental status she was awake and oriented. There was no a aphasia or dysarthria. Next Cranial nerve examination cranial nerves II through XII grossly intact next her graft motor examination she had a mild right hemiparesis Gait: Not tested - Labs CBC & Chem 7: 05/14/18 06:20 05/14/18 06:20 Labs: Abnormal Lab Results - Last 24 Hours (Table) 05/14/18 05/14/18 Range/Units 06:20 06:20 Hgb 11.3 L (11.4-16.0) gm/dL MCHC 30.7 L (31.0-37.0) g/dL RDW 21.2 H (11.5-15.5) % Chloride 112 H (98-107) mmol/L Carbon Dioxide 17 L (22-30) mmol/L BUN 44 H (7-17) mg/dL Creatinine 1.25 H (0.52-1.04) mg/dL Glucose 103 H (74-99) mg/dL Microbiology - Last 24 Hours (Table) 05/13/18 04:12 Urine Culture - Preliminary Urine,Clean Catch Gram Neg Bacilli Assessment and Plan (1) Dehydration Current Visit: Yes Status: Acute SNOMED Code(s): 56012323 (2) History of stroke Current Visit: Yes Status: Acute SNOMED Code(s): 789234501 Plan: The patient is an 82-year-old woman with history of stroke in the summer of 2017. She has residual mild right hemiparesis. She is alert and oriented and has no new complaints. Terms of her stroke she is neurologically stable with her right sided weakness. She had a CT of the brain which showed stability of left subcortical stroke.
[2018-05-14] MEDS: ATORVASTATIN 20 MG TAB PO SCH (20:20)
[2018-05-15] MEDS: DEXTROSE 5% IN WATER 1,000 ML with SODIUM BICARB (1 MEQ/ML) 150 ML IV SCH ×3 (00:35→15:13)
[2018-05-15] MEDS: LEVOTHYROXINE 88 MCG TAB PO SCH (06:22)
[2018-05-15] MEDS: SODIUM BICARBONATE TAB 650 MG TAB PO SCH ×4 (09:47→22:52)
[2018-05-15] MEDS: FERROUS SULFATE 325 MG TAB PO SCH (09:48)
[2018-05-15] MEDS: METOPROLOL TARTRATE 50 MG TAB PO SCH ×2 (09:48→20:31)
[2018-05-15] MEDS: PANTOPRAZOLE 40 MG TABLET PO SCH (09:48)
[2018-05-15] MEDS: APIXABAN 2.5 MG TABLET PO SCH ×2 (09:48→20:31)
[2018-05-15] MEDS: LOPERAMIDE 2 MG CAP PO SCH ×4 (09:48→22:52)
[2018-05-15 09:49] LABS: Anisocytosis Moderate; Basophils % (A) 0 %; Eosinophils # (A) 0.2 k/uL (0-0.7); Eosinophils % (A) 5 %; HCT 31.6 % (34.0-46.0); HGB 10.3 gm/dL (11.4-16.0); Lymphocytes # (A) 0.8 k/uL (1.0-4.8); Lymphocytes % (A) 16 %; MCH 26.1 pg (25.0-35.0); MCHC 32.5 g/dL (31.0-37.0); MCV 80.2 fL (80.0-100.0); Mean Platelet Volume 7.9; Microcytosis Moderate; Monocytes # (A) 0.5 k/uL (0-1.0); Monocytes % (A) 9 %; Neutrophils # (A) 3.6 k/uL (1.3-7.7); Neutrophils % (A) 69 %; Platelet Count 257 k/uL (150-450); RBC 3.94 m/uL (3.80-5.40); RDW 21.8 % (11.5-15.5); WBC 5.3 k/uL (3.8-10.6)
--- NOTE | 2018-05-15 09:50 | P.PN ---
Subjective Progress Note Date: 05/15/18 Principal diagnosis: This is an 82-year-old female with acute kidney injury secondary to volume depletion likely from decreased intake and increase in the colostomy output. She is responding to IV fluids with creatinine coming down. Additionally she has an element of non-gap acidosis from the colostomy output. She is on IV sodium bicarbonate drip as well as by mouth bicarb. She is feeling much better eating very well. Denies any fever chills cough nausea vomiting she is eating very well. Colostomy output remains high. She is also known with atrial fibrillation paroxysmal, chronic kidney disease, hypertension, history of prior CVA. She is now feeling better and has better appetite. She is on IV fluid with 3 A of bicarb Objective - Vital Signs Vital signs: Vital Signs Temp 97.4 F L 05/15/18 08:00 Pulse 71 05/15/18 08:00 Resp 18 05/15/18 08:00 BP 101/53 05/15/18 08:00 Pulse Ox 97 05/15/18 08:00 Intake & Output 05/14/18 05/15/18 05/15/18 18:59 06:59 18:59 Intake Total 848 10 Output Total 950 300 600 Balance -102 -290 -600 Weight 54.5 kg Intake: IV 210 10 Invasive Line 2 10 10 Magnesium Sulfate-D5w Pmx 200 1 gm In Dextrose/Water 1 100ml.bag @ 100 mls/hr IVPB Q1H [facility] Rx#: [id number] Oral 638 Output: Stool 950 300 600 Other: Voiding Method Incontinent Incontinent Incontinent # Voids 1 1 On examination awake alert oriented comfortable HEENT exam no JVP neck is supple no facial asymmetry Lungs clear to auscultation good air entry bilaterally. Heart sounds unremarkable no murmur rub gallop Abdomen soft nontender colostomy bag draining greenish liquid stool Extremity exam was no edema Neurologically awake alert oriented somewhat weak - Labs CBC & Chem 7: 05/14/18 06:20 05/14/18 06:20 Labs: Microbiology - Last 24 Hours (Table) 05/13/18 04:12 Urine Culture - Preliminary Urine,Clean Catch Gram Neg Bacilli Assessment and Plan Assessment: Impression 1. Acute kidney injury from decreased intake and colostomy output improving with IV fluids. Creatinine peaked at 2.03 and is down to 1.25 yesterday. 2. Non-gap metabolic acidosis from GI loss of bicarb, on IV bicarb drip. 3. Hypovolemic hyponatremia resolved sodium is 138. Recommendation. 1. Continue IV fluids for 1 more day and then we can discontinue it. 2 Continue oral bicarb 6 and 50 4 times a day 3. If labs not done today will obtain repeat renal panel
[2018-05-15 09:56] LABS: Calcium 7.9 mg/dL (8.4-10.2); Magnesium 1.8 mg/dL (1.6-2.3); Potassium 3.5 mmol/L (3.5-5.1)
[2018-05-15 11:29] LABS: Albumin 2.2 g/dL (3.5-5.0); Total Bilirubin 0.3 mg/dL (0.2-1.3); Total Protein 4.5 g/dL (6.3-8.2)
--- NOTE | 2018-05-15 12:21 | P.PN ---
Subjective Progress Note Date: 05/15/18 Principal diagnosis: #1 acute kidney injury associated with with the Valium contraction secondary to decrease intake, high blood in the colostomy. With the increased creatinine from 2.03-1.25 yesterday. #2 she had non-anion gap metabolic acidosis secondary to GI loss of bicarb. #3 hyponatremia corrected at this time. #4 status post cecal tumor, adenocarcinoma, underwent partial colectomy with a ileostomy placement. With consultation with Dr. humphrey the surgeon he ordered loperamide 2 mg 4 times a day with increased up to 4 mg 4 times a day to slow the output and the goal to be less than 1500 mL per day. #5 history of CVA on the summer with residual mild right hemiparesis, computed tomography scan on 05/13/2018 indicating old medial left frontal lobe infarction by Dr.N Galvan #6 inability to walk with the above reason. #7 history of anemia secondary to blood loss with the tumor of the cecum currently stable with dehydration mild dropping. #7 hyperparathyroidism, currently on admission she had iatrogenic hyperthyroidism, her thyroid has been adjusted to 88 g daily from 125 g daily. #8 hypotension and, atrial fibrillation currently controlled with beta blockers metoprolol tartrate 50 mg twice a day was placed by nurse practitioner and the cardiology, nursing staff noticed that patient blood pressure drop after taking the doses of the beta chung and a communicate with the cardiology and they are following her. This progress note on 05/15/2018. Patient is conscious alert and oriented and she has history of stroke in the past and occasionally forgetful but she has no specific complaint no abdominal pain and no chest pain no feeling of expectoration of her heart rate. Her vital signs stable temperature 97.4 pulse 71/m and regular and respiratory rate is 18 her the blood pressure was recently done by the RN Shayla was 1:15 systolic the last blood pressure recorded was 101/53. Her oxygen saturation 97 % and she is not on any oxygen supplementation. During the night I was called at almost midnight and patient had the dose of beta blockers and subsequently her blood pressure dropped to the 70 and at that time I did do advised to call the cardiology as they are the run for monitoring the beta chung on the one who ordered it. As of today notify Dr. Lees and then subsequently patient got one bolus of volume 250 normal saline patient however today is doing well with that. Her laboratory from this morning indicating that white count is 5.3 hemoglobin 10.3 drop with the hydration and the her exertion platelet count is 257, on the chemistry sodium 137, potassium 3.5, carbon dioxide is 29 now with the improvement from acidotic to normalizing. Her her BUN is 27 and the creatinine is 0.96 and AST 47 and total protein 4.5 and her albumin 2.2. Urine culture is E. coli according to culture and Cystatin C the better 1 is ciprofloxacin less or equal to 1 and in the regard of the ceftriaxone is less or equal than 8 which is high JEROD. Unfortunately she has ALLERGY to ciprofloxacin and will have to choose different antibiotic for the E. coli , I did discuss it with the patient in detail and she stated with Blue she had ALLERGY but she doesn't have no previous ALLERGY to Levaquin so we will start to the Levaquin and see if they have any ALLERGY as is the JEROD this or equal to 2 which is a second better antibiotic for her UTI. We'll see whether the pharmacy opinion on that as well And examination patient is able to eat and drink and no dysphagia her she is awake alert oriented 3 the neck was supple no JVD no thyromegaly no lymphadenopathy. Trachea midline. Chest was clear to auscultation and percussion. The heart was irregular with the and underlying atrial fibrillation however is controlled ventricular response at this time and blood pressure is stable at this time as mentioned above. Abdomen was soft she had the pouch and was evacuated 250 mL of liquid stool. The extremities no edema and positive pulses. Patient also getting her rehab. And we will be observing to see if her proton the colostomy has been improved to almost normal kidneys and that may be did not need the PICC line or the future IV fluid. However the PICC line that requested in the [facility] has limited by intravenous as well as the IV hydration good also for limited time but not forever and we need to correct the main problem which is the high output in the colostomy that she had. Currently the patient started to improve with the Imodium. We consulted with the gastroenterology however we don't have no response till now thank you Objective - Vital Signs Vital signs: Vital Signs Temp 97.4 F L 05/15/18 08:00 Pulse 71 05/15/18 08:00 Resp 18 05/15/18 08:00 BP 101/53 05/15/18 08:00 Pulse Ox 97 05/15/18 08:00 Intake & Output 05/14/18 05/15/18 05/15/18 18:59 06:59 18:59 Intake Total 848 10 Output Total 950 300 800 Balance -102 -290 -800 Weight 54.5 kg Intake: IV 210 10 Invasive Line 2 10 10 Magnesium Sulfate-D5w Pmx 200 1 gm In Dextrose/Water 1 100ml.bag @ 100 mls/hr IVPB Q1H [facility] Rx#: [id number] Oral 638 Output: Stool 950 300 800 Other: Voiding Method Incontinent Incontinent Incontinent # Voids 1 1 - Labs CBC & Chem 7: 05/15/18 09:22 05/15/18 09:22 Labs: Abnormal Lab Results - Last 24 Hours (Table) 05/15/18 05/15/18 Range/Units 09:22 09:22 Hgb 10.3 L (11.4-16.0) gm/dL Hct 31.6 L (34.0-46.0) % RDW 21.8 H (11.5-15.5) % Lymphocytes # 0.8 L (1.0-4.8) k/uL BUN 27 H (7-17) mg/dL Glucose 129 H (74-99) mg/dL Calcium 7.9 L (8.4-10.2) mg/dL AST 47 H (14-36) U/L Total Protein 4.5 L (6.3-8.2) g/dL Albumin 2.2 L (3.5-5.0) g/dL Microbiology - Last 24 Hours (Table) 05/13/18 04:12 Urine Culture - Final Urine,Clean Catch Escherichia coli
[2018-05-15] MEDS ORDERED: LEVOFLOXACIN 500 MG TAB PO SCH (12:30)
--- NOTE | 2018-05-15 17:12 | P.PN ---
Subjective Progress Note Date: 05/15/18 Patient is feeling much better today, she is still having increased output from ileosotomy. Objective - Vital Signs Vital signs: Vital Signs Temp 97 F L 05/15/18 12:00 Pulse 72 05/15/18 12:00 Resp 18 05/15/18 12:00 BP 115/55 05/15/18 12:00 Pulse Ox 98 05/15/18 12:00 Intake & Output 05/14/18 05/15/18 05/15/18 18:59 06:59 18:59 Intake Total 848 10 Output Total 706 228 5197 Balance -102 -290 -1400 Weight 54.5 kg Intake: IV 210 10 Invasive Line 2 10 10 Magnesium Sulfate-D5w Pmx 200 1 gm In Dextrose/Water 1 100ml.bag @ 100 mls/hr IVPB Q1H SHABBIR Rx#: [id number] Oral 638 Output: Stool 162 336 3346 Other: Voiding Method Incontinent Incontinent Incontinent # Voids 1 1 1 - Constitutional General appearance: Present: cooperative - Cardiovascular Rhythm: regular - Gastrointestinal Gastrointestinal Comment(s): S/NT/ND ostomy pink patent - Labs CBC & Chem 7: 05/15/18 09:22 05/15/18 09:22 Labs: Abnormal Lab Results - Last 24 Hours (Table) 05/15/18 05/15/18 Range/Units 09:22 09:22 Hgb 10.3 L (11.4-16.0) gm/dL Hct 31.6 L (34.0-46.0) % RDW 21.8 H (11.5-15.5) % Lymphocytes # 0.8 L (1.0-4.8) k/uL BUN 27 H (7-17) mg/dL Glucose 129 H (74-99) mg/dL Calcium 7.9 L (8.4-10.2) mg/dL AST 47 H (14-36) U/L Total Protein 4.5 L (6.3-8.2) g/dL Albumin 2.2 L (3.5-5.0) g/dL Microbiology - Last 24 Hours (Table) 05/13/18 04:12 Urine Culture - Final Urine,Clean Catch Escherichia coli Assessment and Plan Assessment: ALEXEI, increased ileostomy output Plan: Continue IV hydration, increase loparamide to 4mg QID. Goal less than 1500cc.
[2018-05-15] MEDS ORDERED: hydrOXYzine HCL 10 MG TAB PO PRN (19:52)
[2018-05-15] MEDS: ATORVASTATIN 20 MG TAB PO SCH (20:31)
[2018-05-15] MEDS: AMOXIC-POT CLAV 875-125MG 1 EACH TAB PO SCH (22:52)
[2018-05-16] MEDS: DEXTROSE 5% IN WATER 1,000 ML with SODIUM BICARB (1 MEQ/ML) 150 ML IV SCH (04:12)
[2018-05-16] MEDS: LEVOTHYROXINE 88 MCG TAB PO SCH (06:33)
[2018-05-16] MEDS: PANTOPRAZOLE 40 MG TABLET PO SCH (08:10)
[2018-05-16] MEDS: AMOXIC-POT CLAV 875-125MG 1 EACH TAB PO SCH ×2 (08:10→21:18)
[2018-05-16] MEDS: SODIUM BICARBONATE TAB 650 MG TAB PO SCH ×4 (08:10→21:18)
[2018-05-16] MEDS: METOPROLOL TARTRATE 50 MG TAB PO SCH ×2 (08:10→21:19)
[2018-05-16] MEDS: APIXABAN 2.5 MG TABLET PO SCH ×2 (08:10→21:18)
[2018-05-16] MEDS: FERROUS SULFATE 325 MG TAB PO SCH (08:11)
[2018-05-16] MEDS: LOPERAMIDE 2 MG CAP PO SCH ×4 (09:24→21:18)
--- NOTE | 2018-05-16 10:26 | CT ---
EXAMINATION TYPE: CT brain wo con DATE OF EXAM: 05/16/2018 HISTORY: New expressive aphasia CT DLP: 1159.4 mGycm. Automated Exposure Control for Dose Reduction was Utilized. TECHNIQUE: CT scan of the head is performed without contrast. COMPARISON: CT scan of brain 3 days ago and older CTs. FINDINGS: There is no acute intracranial hemorrhage or midline shift identified. There is diffuse v entricular and sulcal prominence consistent with diffuse age-related cerebral atrophy. There is low- attenuation in the periventricular white matter consistent with chronic small vessel ischemic change. Subacute on chronic infarct medial left frontal lobe is redemonstrated. Mild to moderate mucosal thi ckening involving bilateral ethmoid sinuses is again seen. Remainder paranasal sinuses are clear. Vis ualized globes are intact. Vascular calcification distal internal carotid arteries bilaterally is red emonstrated. IMPRESSION: No acute intracranial hemorrhage or midline shift. There is mild to moderate diffuse ag e-related cerebral atrophy and chronic small vessel ischemic change as well as subacute on chronic le ft frontal lobe infarct all redemonstrated. No significant change from CT study 3 days earlier.
--- NOTE | 2018-05-16 12:04 | P.PN ---
Subjective Progress Note Date: 05/16/18 This is a pleasant 82-year-old female with history of hypertension, chronic kidney disease, history of prior CVA, hyperlipidemia, paroxysmal atrial fibrillation, history of a GI bleed in February of last year at which time patient was found to have colon cancer for which she underwent a colectomy. Patient presented to the hospital on this occasion with symptoms of weakness and dehydration. A cardiology consultation was requested because of abnormal troponin values. The patient did have an echocardiogram with Doppler study performed in March which revealed a normal left ventricular systolic function. EKG on arrival here showed a normal sinus rhythm with left axis deviation, nonspecific ST-T wave changes. CAT scan of the brain showed old medial left frontal lobe infarct. Chronic appearing ischemia or atrophy of the left watershed region. No significant interval change from previous. Blood pressure 94/50 with a heart rate in the 80s to 90s, 100% on room air. White blood cell count 7.0, hemoglobin 12.0, platelet count 301. Sodium 135, potassium 4.6, BUN 55 and creatinine 1.5. On admission the patient's BUN was 75 and creatinine was 2.0. Magnesium on admission 1.4, 2.3 this morning. Troponins 0.10, 0.09, 0.10. TSH level 0.015 with a free T4 of 2.5. Patient denies having any chest discomfort at any point in time, and breathing overall has been stable. 05/16/2018 Patient was seen and examined this morning, blood pressure is stable, patient denies any dizziness or lightheadedness. Blood pressure 105/40, heart rate in the 80s to 90s, 97% on room air. Objective - Vital Signs Vital signs: Vital Signs Temp 98.4 F 05/16/18 11:22 Pulse 91 05/16/18 11:22 Resp 16 05/16/18 11:22 BP 93/48 05/16/18 11:22 Pulse Ox 97 05/16/18 11:22 Intake & Output 05/15/18 05/16/18 05/16/18 18:59 06:59 18:59 Intake Total 240 Output Total 1400 285 120 Balance -1400 -285 120 Weight 53 kg Intake: Oral 240 Output: Stool 1400 285 120 Other: Voiding Method Incontinent Incontinent Incontinent # Voids 2 1 # Bowel Movements 1 - Exam PHYSICAL EXAMINATION: GENERAL: 82-year-old female female in no acute distress at the time of my examination HEENT: Head is atraumatic, normocephalic. Pupils equal, round. Sclera anicteric. Conjunctiva are clear. Mucous membranes of the mouth are moist. Neck is supple. There is no elevated jugular venous pressure. No carotid bruit is heard. HEART EXAMINATION: Heart S1, S2 irregularly irregular . No murmur or gallop heard. CHEST EXAMINATION: Lungs are clear to auscultation and precussion. No chest wall tenderness is noted on palpation or with deep breathing. ABDOMEN: Soft, nontender. Bowel sounds are heard. No organomegaly noted. EXTREMITIES: 2+ peripheral pulses with no evidence of peripheral edema and no calf tenderness noted. NEUROLOGIC patient is awake, alert and oriented X3. - Labs CBC & Chem 7: 05/15/18 09:22 05/15/18 09:22 Labs: Microbiology - Last 24 Hours (Table) 05/13/18 04:12 Urine Culture - Final Urine,Clean Catch Escherichia coli Assessment and Plan Plan: Assessment and plan #1 symptoms of weakness and dehydration, likely secondary to intravascular volume depletion from high ileostomy output. Creatinine on admission 2.0, 1.5 today. Baseline creatinine around 1 #2 paroxysmal atrial fibrillation #3 hypertension #4 prior CVA #5 hypomagnesemia, likely secondary from GI loss #6 abnormal troponins, trend not suggestive of acute coronary syndrome, likely secondary to abnormal renal function. Repeat echocardiogram with Doppler study revealed an ejection fraction of greater than 70%. Blood pressure is stable. From cardiology's perspective we' ll follow this patient along with you now on an as-needed basis only, please don 't hesitate to call with any questions. She may be able to be discharged once cleared by primary. DNP note has been reviewed, I agree with a documented findings and plan of care. Patient was seen and examined.
--- NOTE | 2018-05-16 12:59 | US ---
EXAMINATION TYPE: US carotid duplex BILAT DATE OF EXAM: 05/16/2018 COMPARISON: Previous carotid Doppler 09/01/2015, CT angiogram of the neck 11/11/2017 CLINICAL HISTORY: new expressive aphasia. EXAM MEASUREMENTS: RIGHT: Peak Systolic Velocity (PSV) cm/sec ----- Right CCA: 104.6 ----- Right ICA: 85.7 ----- Right ECA: 122.8 ICA/CCA ratio: 0.8 RIGHT: End Diastole cm/sec ----- Right CCA: 19.7 ----- Right ICA: 21.4 ----- Right ECA: 0.0 LEFT: Peak Systolic Velocity (PSV) cm/sec ----- Left CCA: 84.2 ----- Left ICA: 74.3 ----- Left ECA: 120.5 ICA/CCA ratio: 0.9 LEFT: End Diastole cm/sec ----- Left CCA: 12.8 ----- Left ICA: 24.8 ----- Left ECA: 7.4 VERTEBRALS (direction of flow): Right Vertebral: Antegrade Left Vertebral: Antegrade Rhythm: Normal Grayscale, color Doppler, spectral Doppler imaging performed of the carotid arteries. Waveform analys is does not show significant stenosis of the proximal internal carotid arteries by Doppler criteria. No significant velocity elevations, mild plaque. Atheromatous changes are present at the carotid bifurcations, common carotid arteries IMPRESSION: No hemodynamic significant stenosis of the proximal internal carotid arteries bilaterall y by Doppler criteria, an indirect measurement of carotid stenosis Criteria for Assigning % of Stenosis / Diameter reduction (Estimation based on the indirect measurements of the internal carotid artery velocities (ICA PSV). 1. Normal (no stenosis)=ICA PSV < 125 cm/s: ratio < 2.0: ICA EDV<40 cm/s. 2. Less than 50% stenosis=ICA PSV < 125 cm/s: ratio < 2.0: ICA EDV<40 cm/s. 3. 50 to 69% stenosis=ICA PSV of 125 to 230 cm/s: ration 2.0 ? 4.0: ICA EDV 40-100 cm/s. 4. Greater than 70% stenosis to near occlusion= ICA PSV > 230 cm/s: ratio > 4.0: ICA EDV > 100 cm/s. 5. Near occlusion= ICA PSV velocities may be low or undetectable: variable ratio and ICA EDV. 6. Total occlusion=unable to detect flow.
--- NOTE | 2018-05-16 13:19 | P.PN ---
Subjective Progress Note Date: 05/16/18 (Blood pressure 93/48) Principal diagnosis: #1 acute kidney injury associated with with the Valium contraction secondary to decrease intake, high blood in the colostomy. With the increased creatinine from 2.03-1.25 yesterday. #2 she had non-anion gap metabolic acidosis secondary to GI loss of bicarb. #3 hyponatremia corrected at this time. #4 status post cecal tumor, adenocarcinoma, underwent partial colectomy with a ileostomy placement. With consultation with Dr. humphrey the surgeon he ordered loperamide 2 mg 4 times a day with increased up to 4 mg 4 times a day to slow the output and the goal to be less than 1500 mL per day. #5 history of CVA on the summer with residual mild right hemiparesis, computed tomography scan on 05/13/2018 indicating old medial left frontal lobe infarction by Dr.N Galvan #6 inability to walk with the above reason. #7 history of anemia secondary to blood loss with the tumor of the cecum currently stable with dehydration mild dropping. #7 hyperparathyroidism, currently on admission she had iatrogenic hyperthyroidism, her thyroid has been adjusted to 88 g daily from 125 g daily. #8 hypotension and, atrial fibrillation currently controlled with beta blockers metoprolol tartrate 50 mg twice a day was placed by nurse practitioner and the cardiology, nursing staff noticed that patient blood pressure drop after taking the doses of the beta chung and a communicate with the cardiology and they are following her. Progress note date of service 05/16/2018. Patient of Dr. Rolando Angel. New Patient seen and evaluated and she stated don't see me. To be upset. Patient has underlying slurred speech eating by the nursing staff and they called Dr. Dr. Galvan ordered speech pathology and a CAT scan as well. Her vital sign today 98.4 pulse 91 permanent, respiratory rate 16, her oxygen saturation 97%. He saw her today with the RN taking care of her, and she stated I do not talk to and she have her speech which is up with OB from the old stroke. The CAT scan done today indicating no acute intracranial hemorrhage or midline shift. There is a mild to moderate diffuse age-related cerebral atrophy and chronic small vessel disease. And she had also the changes subacute on chronic left frontal lobe infarction demonstrated and no significant change from the CT study [address] Galvan as well she ordered a speech pathology for evaluation., With her underlying depression will consult psychiatric consultation for evaluation. The possible depressed affect The patient on her hypotensive status and with the dehydration with the underlying colostomy output, I spoke with Dr. humphrey who is on-call for Dr. Antonio and he stated that he started her on Imodium to slow down the output and the future plan of reconnection and the reversible of the ileostomy bag. Total output on the May 25 today HER OUTPUT WAS 85. The colostomy output total on 05/15/18 1600 mL. IV is continued Urine culture indicating E. coli more than 100,000, patient is ALLERGY to ciprofloxacin, also thought to be ALLERGY to Levaquin, I spoke with the pharmacist and suggested Augmentin 875 mg twice a day and patient started on Augmentin. As patient apparently her depressed she does not want to talk she doesn't want to be examined and apparently there is depression has been present and we discussed that with the RN and she was with me in the room ,WILVER RN. Assessment: #1 speech disturbance associated with her previous stroke and no acute stroke happening on her changes of her speech. #2 she is upsetting and misusing the current medication on examination. Plan #1 continue monitoring the colostomy output #2 obtaining the lab tomorrow # 3 consulting the psychiatry. Objective - Vital Signs Vital signs: Vital Signs Temp 98.4 F 05/16/18 11:22 Pulse 91 05/16/18 11:22 Resp 16 05/16/18 11:22 BP 93/48 05/16/18 11:22 Pulse Ox 97 05/16/18 11:22 Intake & Output 05/15/18 05/16/18 05/16/18 18:59 06:59 18:59 Intake Total 240 Output Total 1400 285 120 Balance -1400 -285 120 Weight 53 kg Intake: Oral 240 Output: Stool 1400 285 120 Other: Voiding Method Incontinent Incontinent Incontinent # Voids 2 1 # Bowel Movements 1 - Labs CBC & Chem 7: 05/15/18 09:22 05/15/18 09:22 Labs: Microbiology - Last 24 Hours (Table) 05/13/18 04:12 Urine Culture - Final Urine,Clean Catch Escherichia coli
--- NOTE | 2018-05-16 15:05 | P.PN ---
Subjective Progress Note Date: 05/16/18 Patient seen and examined at bedside. She states she is feeling well. Ostomy output has decreased tremendously after beginning loperamide. Her ostomy output is also much thicker and not liquid. Objective - Vital Signs Vital signs: Vital Signs Temp 98.4 F 05/16/18 11:22 Pulse 91 05/16/18 11:22 Resp 16 05/16/18 11:22 BP 93/48 05/16/18 11:22 Pulse Ox 97 05/16/18 11:22 Intake & Output 05/15/18 05/16/18 05/16/18 18:59 06:59 18:59 Intake Total 240 Output Total 1400 285 270 Balance -1400 -285 -30 Weight 53 kg Intake: Oral 240 Output: Stool 1400 285 270 Other: Voiding Method Incontinent Incontinent Incontinent # Voids 2 1 # Bowel Movements 1 - Constitutional General appearance: Present: cooperative, no acute distress - Respiratory Details: No difficulty with respiration - Gastrointestinal Gastrointestinal Comment(s): Soft, nontender, nondistended, no rebound, guarding, ostomy site is pink and patent - Musculoskeletal Musculoskeletal: Present: generalized weakness - Labs CBC & Chem 7: 05/15/18 09:22 05/15/18 09:22 Assessment and Plan Plan: I had a lengthy discussion with the patient about her ostomy output. It appears to be thickening and decreasing in amount with the loperamide. I also discussed the case with the patient's admitting physician, Dr. Henning. We would like to wait an additional 2 additional weeks prior to ostomy reversal, due to the fact the patient had the ostomy placed 6 weeks ago. In the meantime, the patient will have a PICC line placed in case any additional dehydration occurs. We will continue the loperamide, as it does appear to be decreasing the ostomy output.
[2018-05-16] MEDS: SODIUM CHLORIDE 0.9% 1,000 ML IV SCH (17:20)
--- NOTE | 2018-05-16 17:43 | PN ---
PROGRESS NOTE Patient is seen for followup for acute kidney injury. Her renal function is improved significantly. Patient denies any complaints. On examination today, blood pressure was 105/47, heart rate 104 per minute. Patient is afebrile. EXAMINATION OF THE HEART: S1, S2. EXAMINATION OF LUNGS: Bilateral breath sounds are heard. ABDOMEN: Soft, non-tender. Examination of lower extremities shows no evidence of edema. INDIVIDUALIZED EDUCATION PLAN AIDE exam is grossly intact. Labs show sodium 137, potassium 3.5, BUN 27, serum creatinine 0.96, hemoglobin 10.3 g/dL. ASSESSMENT: 1. Acute kidney injury, prerenal, improved. 2. Non-gap metabolic acidosis, currently improved. 3. Hypovolemic hyponatremia, also improved. PLAN: We can discontinue the IV bicarb, change to normal saline at 70 mL/hour. MMODL / IJN: [id number] /
--- NOTE | 2018-05-16 18:23 | P.PN ---
Subjective Progress Note Date: 05/16/18 The patient is an 82-year-old woman admitted to the hospital with dehydration. She is having acute kidney injury as well as chronic kidney disease. She has a history of left-sided stroke with right-sided hemiparesis. Morning nor neurology was called told that the patient was having some type of expressive aphasia. The patient states that sometimes when she is tired she does have difficulty with her speech. Family are at bedside and they also report this often occurs when she is tired. The patient did have a stat CT of the brain to rule out hemorrhage and there was no change from previous CAT scans. He had a carotid ultrasound which did not show any significant stenosis. Patient is doing well currently and is having no difficulty with her speech. She is waiting to have PICC line placement before she goes back to rehab so that she might have better hydration. Objective - Vital Signs Vital signs: Vital Signs Temp 98.1 F 05/16/18 15:52 Pulse 101 H 05/16/18 15:52 Resp 16 05/16/18 15:52 BP 101/48 05/16/18 15:52 Pulse Ox 97 05/16/18 15:52 Intake & Output 05/15/18 05/16/18 05/16/18 18:59 06:59 18:59 Intake Total 240 Output Total 1400 285 320 Balance -1400 -285 -80 Weight 53 kg Intake: Oral 240 Output: Stool 1400 285 320 Other: Voiding Method Incontinent Incontinent Incontinent # Voids 2 1 # Bowel Movements 1 - Constitutional General appearance: Present: cooperative - EENT Eyes: Present: EOMI - Respiratory Respiratory: bilateral: CTA - Neurologic Neurologic Comment(s): Neurologic examination: X Mental status: She was awake she was alert she was able to repeat and name and there was no a aphasia. Cranial nerve examination: Pupils are equal round and reactive next Motor examination: Right hemiparesis unchanged Gait: Not tested - Labs CBC & Chem 7: 05/15/18 09:22 05/15/18 09:22 Assessment and Plan (1) Dehydration Current Visit: Yes Status: Acute SNOMED Code(s): 50097944 (2) History of stroke Current Visit: Yes Status: Acute SNOMED Code(s): 687454916 Plan: The patient is an 82-year-old woman with history of stroke in the summer of 2017. She has residual mild right hemiparesis. She is alert and oriented and has no new complaints. The nurse called neurology this morning reporting some type of expressive aphasia. A stat CT of the brain was performed and this did not show any changes. The patient and her family are at bedside reports that sometimes her speech does become garbled when she is tired. Patient is feeling fine and is at her baseline. In terms of her stroke she is neurologically stable with her right sided weakness.
[2018-05-16] MEDS: ATORVASTATIN 20 MG TAB PO SCH (21:18)
--- NOTE | 2018-05-17 00:41 | P.PN ---
Subjective Progress Note Date: 05/16/18 Principal diagnosis: Increased output per ostomy Patient feeling better. No nausea or vomiting. Tolerating diet. Up from ostomy has decreased and thickened. Objective - Vital Signs Vital signs: Vital Signs Temp 98.5 F 05/16/18 20:00 Pulse 103 H 05/16/18 20:00 Resp 18 05/16/18 20:00 BP 128/64 05/16/18 20:00 Pulse Ox 94 L 05/16/18 20:00 Intake & Output 05/16/18 05/16/18 05/17/18 06:59 18:59 06:59 Intake Total 240 Output Total 285 320 225 Balance -285 -80 -225 Weight 53 kg 53 kg Intake: Oral 240 Output: Stool 285 320 225 Other: Voiding Method Incontinent Incontinent Incontinent # Voids 1 1 # Bowel Movements 1 1 - Exam On physical examination, patient appears comfortable in no apparent distress. HEAD: Normocephalic, atraumatic. EYES: No scleral icterus. No conjunctival injection. MOUTH: No lesions, tongue midline. NECK: Trachea midline, no gross abnormalities. CHEST: Clear to auscultation with no wheezing or rhonchi appreciated. HEART: Regular rate and rhythm. ABDOMEN: Soft, colostomy with thick liquid output.. Bowel sounds are positive. No organomegaly. No guarding or rigidity. EXTREMITIES: No pedal edema. SKIN: No rashes, no jaundice. NEUROLOGIC: Alert and oriented. - Labs CBC & Chem 7: 05/15/18 09:22 05/15/18 09:22 Assessment and Plan (1) Colon adenocarcinoma Narrative/Plan: Very pleasant 82-year-old female with a recent history of colonic cancer status post resection and ostomy formation, presenting with increased output per ostomy. Patient has subsequently been started on loperamide with improvement in output. Current Visit: No Status: Acute Priority: High Code(s): C18.9 - MALIGNANT NEOPLASM OF COLON, UNSPECIFIED SNOMED Code(s): 406900793 (2) Dehydration Current Visit: Yes Status: Acute Code(s): E86.0 - DEHYDRATION SNOMED Code( s): 49065250 (3) History of stroke Current Visit: Yes Status: Acute Code(s): Z86.73 - PRSNL HX OF TIA (TIA), AND CEREB INFRC W/O RESID DEFICITS SNOMED Code(s): 256714895 Plan: Supportive care Appreciate surgical recommendations Continue loperamide therapy, significant improvement in symptoms Plan for PICC line to maintain hydration Plan for surgery for fecal reversal of colostomy timing to be determined Thank you for allowing us to be discontinued in the care of this patient the gastroenterology service will stand by, please call us back with any questions or concerns
[2018-05-17] MEDS: LEVOTHYROXINE 88 MCG TAB PO SCH (07:04)
[2018-05-17 08:10] LABS: Calcium 7.7 mg/dL (8.4-10.2); Magnesium 1.4 mg/dL (1.6-2.3); Potassium 3.7 mmol/L (3.5-5.1)
[2018-05-17 08:44] LABS: Anisocytosis Moderate; HCT 29.2 % (34.0-46.0); HGB 9.5 gm/dL (11.4-16.0); Hypochromasia Slight; MCH 26.8 pg (25.0-35.0); MCHC 32.5 g/dL (31.0-37.0); MCV 82.3 fL (80.0-100.0); Mean Platelet Volume 7.3; Microcytosis Moderate; Platelet Count 210 k/uL (150-450); RBC 3.55 m/uL (3.80-5.40); RDW 21.5 % (11.5-15.5); WBC 4.1 k/uL (3.8-10.6)
[2018-05-17] MEDS: LOPERAMIDE 2 MG CAP PO SCH ×3 (09:18→20:42)
[2018-05-17] MEDS: APIXABAN 2.5 MG TABLET PO SCH ×2 (09:18→20:42)
[2018-05-17] MEDS: FERROUS SULFATE 325 MG TAB PO SCH (09:18)
[2018-05-17] MEDS: AMOXIC-POT CLAV 875-125MG 1 EACH TAB PO SCH ×2 (09:18→20:42)
[2018-05-17] MEDS: SODIUM BICARBONATE TAB 650 MG TAB PO SCH (09:18)
[2018-05-17] MEDS: METOPROLOL TARTRATE 50 MG TAB PO SCH ×2 (09:18→20:42)
[2018-05-17] MEDS: PANTOPRAZOLE 40 MG TABLET PO SCH (09:18)
[2018-05-17 11:11] LABS: Band Neutrophils % 1 %; Eosinophils # (M) 0.16 k/uL (0-0.7); Lymphocytes # (M) 0.57 k/uL (1.0-4.8); Monocytes # (M) 0.25 k/uL (0-1.0); Neutrophils % (M) 75 %; Nucleated Red Blood Cells 0 /100 WBC (0-0); Total Cells Counted 100
[2018-05-17] MEDS: SODIUM CHLORIDE 0.9% 1,000 ML IV SCH ×2 (11:38→20:43)
--- NOTE | 2018-05-17 13:31 | P.CN ---
Psychiatric Consult - . Consult date: 05/17/18 Consult:: Depression urgent! 05/17/18 12:23 Assessment and Plan Assessment: his is an 82-year-old female presents emergency Department with a past history significant for an ileostomy which is quite about 9 months ago. According to staff at her facility she has been having quite a bit of output and is getting dehydrated. According to him he also had a high potassium of 5.5. Patient's also been feeling considerably weaker. They spoke with the primary medical care doctor and he wanted the patient transferred to the emergency department to get fluids and have a PICC line placed. Patient denies any chest pain difficulty breathing or shortness of breath. Patient denies any abdominal pain. Patient denies any nausea or vomiting. Patient denies any recent fever chills or cough per patient denies lightheadedness or dizziness. Patient just complains of generalized weakness. - Related Data Home Medications Medication Instructions Recorded Confirmed Levothyroxine Sodium [Synthroid] 125 mcg PO DAILY 08/31/15 05/12/18 Ergocalciferol (Vitamin D2) 50,000 unit PO Q30D 05/12/17 05/12/18 [Vitamin D2] Apixaban [Eliquis] 2.5 mg PO BID 12/17/17 05/12/18 Previous Rx's Medication Instructions Recorded Atorvastatin [Lipitor] 20 mg PO HS tab 12/28/17 Metoprolol Tartrate [Lopressor] 50 mg PO TID tab 12/28/17 Pantoprazole [Protonix] 40 mg PO DAILY tablet. 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 Chronic renal failure, hypertension, hyperlipidemia, hypothyroidism, history of rheumatic fever, history of scarlet fever, History of Any Multi-Drug Resistant Organisms: None Reported Past Surgical History: Adenoidectomy, Tonsillectomy Additional Past Surgical History / Comment(s): part of thyroid removed, ileostomy Past Anesthesia/Blood Transfusion Reactions: Unable to Obtain Additional Past Anesthesia/Blood Transfusion Reaction / Comment(s): patient states she had a hard time waking up after having anesthesia Past Psychological History: Unable to Obtain Smoking Status: Never smoker Past Alcohol Use History: None Reported Past Drug Use History: None Reported - Past Family History Father Family Medical History: No Reported History Additional Family Medical History / Comment(s): parkinsons Mother History Unknown: Yes Family Medical History: Cancer, Diabetes Mellitus Additional Family Medical History / Comment(s): colon cancer Sister(s) Additional Family Medical History / Comment(s): breast cancer Mental Status Examination - The patient presents alert, pleasant, and cooperative. There calmly seated without any agitated behavior. She reports that [her] mood is good. Affect is congruent and euthymic. [She] deny having any suicidal or homicidal ideation intent or plan. [She] denies any auditory or visual hallucinations. There is no evidence of any delusional thought content. [Her] thought process is linear and goal-directed. [Her] speech is fluent and nonpressured. [Her] memory and concentration is grossly intact for the purposes of this session. Psychiatric impression: Adjustment disorder Psychiatric recommendations: No psychiatric recommendations at this time since she does not have a mood disorder or thought disorder Thank you for the consult Amarjit Rosenthal D.O. PhD] (1) Depression Current Visit: Yes Status: Acute Code(s): F32.9 - MAJOR DEPRESSIVE DISORDER , SINGLE EPISODE, UNSPECIFIED SNOMED Code(s): 15767158 Time with Patient: Less than 30
--- NOTE | 2018-05-17 14:27 | PN ---
PROGRESS NOTE Patient is seen for followup for acute kidney injury. Her renal function has improved significantly. Patient was also acidotic and she was maintained on bicarb drip which was discontinued last night. This morning, patient has nausea. PHYSICAL EXAMINATION: Blood pressure was 122/60, heart rate 82 per minute. She is afebrile. Examination of the heart S1, S2. Examination of the lungs, bilateral breath sounds are heard. Abdomen is soft, nontender. Examination of the lower extremities shows no evidence of edema. ASSISTANT DISTRIBUTION MANAGER exam is grossly intact. LABS: Revealed sodium of 136, potassium 3.7, chloride 95, CO2 was 41, BUN 15, serum creatinine 0.96, hemoglobin 9.5 g/dL. ASSESSMENT: 1. Acute kidney injury, currently improved, merely prerenal. 2. Metabolic acidosis, now improved. Patient has metabolic alkalosis. IV bicarb was discontinued yesterday. I will discontinue the oral bicarb as well today. 3. Urinary tract infection with Escherichia coli, maintained on antibiotics. 4. Nausea, possibly related to antibiotics. PLAN: DC sodium bicarb. Continue with normal saline. Repeat labs in a.m.. MMODL / IJN: [id number] /
--- NOTE | 2018-05-17 17:39 | PN ---
PROGRESS NOTE DATE OF SERVICE: 05/17/2018 82 years old, white female, single. Her height is 5 feet 5.5 inches and weight 55.5 kg, BSA 1.61 m2, BMI 20.1 kg/m2. ALLERGY: IS CODEINE AND CIPROFLOXACIN. Today, patient is seen, evaluated and examined. I did discuss it yesterday with Dr. Antonio, the surgeon who is planning for revision of the colostomy with ileostomy to normal in 2 weeks. We discussed the PICC line and for the dehydration intermittently with the low intake and he agreed. Subsequently, in the radiology department, they need to do a PICC line to stop the Eliquis and because of her atrial fibrillation. They offer another procedure which is mid plane IV and that can stay for 1 month and we only need it for 1 month for intermittent IV hydration if needed until the revision of the colostomy has been okay which is 2 weeks. Which satisfies our purpose at the same time. Recommended also that the patient continue back to the snf. On the patient discussion today, the temperature is 97.8 orally, pulse is 82 per minute and irregular with the atrial fibrillation. Her respiratory rate 18 and blood pressure is stable 123/60 with a mean 81. Her pulse ox [address] Antonio the surgeon did discuss with the patient as well that he will plan for the revision after 2 weeks as well. LABORATORY: Indicating that her white count is 4.1, hemoglobin of 9.5 with slightly drop with the IV fluid. Her hematocrit is 29.2. Initially, the patient was hemoconcentrated with the hemoglobin of 12 and hematocrit 40.3. Otherwise she has underlying chronic anemia with the underlying status post cecal tumor has been removed with the partial colectomy. On the electrolytes found that her sodium 136, potassium 3.7, and chloride was 95. However, the carbon dioxide jumped to 41 and currently she is not on any bicarb and we will be waiting for tomorrow and repeat again the BMP and possibility to revert back to the normal range with the could be the consideration of the sodium bicarb. Currently the BUN of 15 and creatinine 0.96 with a estimated glomerular filtration rate has been improved on admission 32 and now is 56, which is significant improvement. The blood sugar 86, and calcium is 7.7, and the magnesium was 1.4 and we are going to give her 2 g of magnesium with the understanding of high output from the GI with the liquid form. Yesterday, her AST 47, ALT 49, alkaline phosphatase was 52 with the total protein 4.5 and albumin 2.2 with the underlying decreased intake and mild protein calorie deficiency. Her TSH was indicating hyperthyroidism secondary to dose of the thyroid and we cut her thyroid medication from 125-88 mcg. The patient found also that she had UTI on admission and we found that it was E coli and we tried Levaquin which also cause some rash and SHE IS ALLERGIC TO CIPROFLOXACIN which is the most accurate sensitivity, but I discussed that with the pharmacist and we ended to give her Augmentin 875 mg twice a day, which is according to the JEROD better safe, however, is not JEROD is a little bit not as Cipro. PHYSICAL EXAMINATION: The patient is conscious, alert, oriented. Her blood pressure has been significantly improved and her medication has been adjusted. Her HEENT was negative. She had previously CT scan of the brain and carotid duplex and as well as there is no changes and carotid duplex was essentially no hemodynamic significant stenosis. The surgeon started her on Imodium 2 mg q.i.d. to slow the output of the GI system to the stoma with a high output and causing her dehydration and loss of electrolytes and resulted in acute kidney injury and prerenal in nature. The patient has also atrial fibrillation and she is on metoprolol 50 mg twice a day. Currently stable and she has been on sodium chloride for hydration and 75 mL/hour. HEENT was negative. No changes in voice. She is calm today and able to respond peacefully. We did consult to the Psychiatry, Dr. Rosenthal who is indicating that his impression that no medication and this is associated with no psychiatry recommendation by the psychiatrist and he stated that she does not have a mood disorder or thought disorder and with the underlying major depression. Also was seen today by Dr. Almonte, the agricultural equipment sales engineer with the assessment underlying acute kidney injury and improved and nearly prerenal and number two metabolic acidosis is currently improved and currently patient has metabolic alkalosis and the IV bicarb has been discontinued and also she discontinued oral bicarb. Urinary tract infection, E coli that has been on antibiotic and the nausea that she had that could be from the antibiotic, but the patient as I did ask her today, she is not nauseated. The abdomen was soft, positive bowel sounds. The right colostomy/ileostomy bag still has output and we will continue the surgeon's recommendation at this time and we unfortunately we do not have the Gastroenterology recommendations. Her I's and O's indicating that her stool output today was 450, however, is not completed yet and she has incontinent of urine. EXTREMITIES: No edema and she has positive pulses, but she could not stand up or walk with the history of the CVA. IMPRESSION: 1. Acute kidney injury. Mainly prerenal, currently is improving nearly to the baseline with the underlying chronic kidney disease stage 3. 2. Metabolic acidosis, currently alkaline metabolic alkalosis with the associated bicarb which was discontinued. 3. History of anemia secondary to the malignancy. 4. 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 PLAN: The planning for revision in 2 weeks and planning for midline instead of PICC line and subsequently if bed is available at [facility], we will transfer her back to [facility] and use for the IV if needed from the midline. We will obtain laboratory tomorrow to indicate the resolution of the metabolic alkalosis. MMODL / IJN: [id number] /
--- NOTE | 2018-05-17 18:50 | ECHOF ---
Referral Reason:new stroke symptoms, expressive aphasia MEASUREMENTS -------- HEIGHT: 165.1 cm WEIGHT: 52.6 kg BP: IVSd: 1.2 cm (0.6 - 1.1) LVIDd: 2.4 cm (3.9 - 5.3) LVPWd: 1.0 cm (0.6 - 1.1) IVSs: 1.5 cm LVIDs: 0.9 cm LVPWs: 1.1 cm LAESV Index (A-L): 28.67 ml/m Ao Diam: 2.7 cm (2.0 - 3.7) AV Cusp: 1.9 cm (1.5 - 2.6) LA Diam: 3.1 cm (2.7 - 3.8) MV EXCURSION: 14.577 mm (> 18.000) MV EF SLOPE: 158 mm/s (70 - 150) EPSS: 1.0 cm MV E Tristen: 0.53 m/s MV DecT: 159 ms MV A Tristen: 0.95 m/s MV E/A Ratio: 0.56 RAP: 5.00 mmHg RVSP: 11.68 mmHg FINDINGS -------- Sinus rhythm. This was a technically good study. The left ventricular size is normal. Left ventricular wall thickness is normal. Overall left vent ricular systolic function is normal with, an EF between 55 - 60 %. The right ventricle is normal in size and function. The left atrium is normal in size. The right atrium is normal in size. Aneurysmal Interatrial septum. Possible PFO The aortic valve is trileaflet and appears structurally normal. There is trace mitral regurgitation. Trace tricuspid regurgitation present. The right ventricular systolic pressure, as measured by Dopp ler, is 11.68mmHg. Pulmonic valve appears structurally normal. The aortic root size is normal. Normal inferior vena cava with normal inspiratory collapse consistent with estimated right atrial pre ssure of 5 mmHg. The pericardium is normal. CONCLUSIONS -------- 1. Sinus rhythm. 2. This was a technically good study. 3. The left ventricular size is normal. 4. Left ventricular wall thickness is normal. 5. Overall left ventricular systolic function is normal with, an EF between 55 - 60 %. 6. The right ventricle is normal in size and function. 7. The left atrium is normal in size. 8. The right atrium is normal in size. 9. Aneurysmal Interatrial septum. 10. Possible PFO 11. The aortic valve is trileaflet and appears structurally normal. 12. There is trace mitral regurgitation. 13. Trace tricuspid regurgitation present. 14. The right ventricular systolic pressure, as measured by Doppler, is 11.68mmHg. 15. Pulmonic valve appears structurally normal. 16. The aortic root size is normal. 17. Normal inferior vena cava with normal inspiratory collapse consistent with estimated right atrial pressure of 5 mmHg. 18. The pericardium is normal. MULTI TOWNSHIP ASSESSOR: Zhane Mahajan RDCS
[2018-05-17] MEDS: ATORVASTATIN 20 MG TAB PO SCH (20:42)
[2018-05-18] MEDS: LEVOTHYROXINE 88 MCG TAB PO SCH (06:50)
[2018-05-18] MEDS: LOPERAMIDE 2 MG CAP PO SCH ×2 (08:00→12:25)
[2018-05-18] MEDS: PANTOPRAZOLE 40 MG TABLET PO SCH (08:00)
[2018-05-18] MEDS: METOPROLOL TARTRATE 50 MG TAB PO SCH (08:01)
[2018-05-18] MEDS: AMOXIC-POT CLAV 875-125MG 1 EACH TAB PO SCH (08:02)
[2018-05-18] MEDS: FERROUS SULFATE 325 MG TAB PO SCH (08:02)
[2018-05-18] MEDS: APIXABAN 2.5 MG TABLET PO SCH (08:02)
[2018-05-18 08:12] VITALS: RESP 18
--- NOTE | 2018-05-18 11:37 | P.PN ---
Subjective Progress Note Date: 05/18/18 Patient seen and examined at bedside. States she is feeling better. No abdominal pain. Denies any nausea or vomiting. Objective - Vital Signs Vital signs: Vital Signs Temp 97.7 F 05/18/18 08:03 Pulse 85 05/18/18 08:03 Resp 18 05/18/18 08:03 BP 122/56 05/18/18 08:03 Pulse Ox 96 05/18/18 08:03 Intake & Output 05/17/18 05/18/18 05/18/18 18:59 06:59 18:59 Intake Total 360 118 Output Total 800 2900 200 Balance -440 -2900 -82 Weight 57 kg Intake: Oral 360 118 Output: Stool 800 2900 200 Other: Voiding Method Incontinent Incontinent Incontinent # Voids 1 # Bowel Movements 1 - Constitutional General appearance: Present: cooperative, no acute distress - Gastrointestinal Gastrointestinal Comment(s): Soft, nontender, nondistended, no rebound, no guarding, ostomy is pink and patent - Musculoskeletal Musculoskeletal: Present: generalized weakness - Labs CBC & Chem 7: 05/17/18 07:12 05/17/18 07:12 Assessment and Plan Plan: I discussed the case in depth with the admitting physician. PICC has been placed for any hydration and IV fluid necessity. I did discuss the case with the patient as well. We will plan for reversal of the ostomy in approximately 2 weeks. She will be discharged soon and will see me in the office for planning this procedure. The patient is agreeable to this plan.
[2018-05-18 12:05] LABS: Potassium 3.8 mmol/L (3.5-5.1)
[2018-05-18] MEDS: SODIUM CHLORIDE 0.9% 1,000 ML IV SCH (12:24)
[2018-05-18 12:32] VITALS: BP 126/62; PULSE 79; TEMP 97.8
--- NOTE | 2018-05-18 13:07 | PN ---
PROGRESS NOTE The patient is seen for followup for acute kidney injury, metabolic acidosis and metabolic alkalosis. She is currently off of all sodium bicarb. CO2 has improved from 41 to 35 today. Overall, patient states she feels well. She denies any significant complaints. PHYSICAL EXAMINATION: On examination, blood pressure was 122/56, heart rate 85 per minute. She is afebrile. EXAMINATION OF THE HEART: S1, S2. EXAMINATION OF THE LUNGS: Bilateral breath sounds are heard. Abdomen is soft, nontender. Examination of the lower extremities shows no evidence of edema. HEAT WELDER [employer]LASTICS exam is grossly intact. LABS: Labs show sodium 136, potassium 3.8, BUN 16, serum creatinine 1.01, hemoglobin of 9.5 yesterday. ASSESSMENT: 1. Acute kidney injury, currently resolved. 2. Metabolic acidosis, improved with IV bicarb. In fact, patient was alkalotic and currently she is off of all sodium bicarb. 3. Metabolic alkalosis associated with use of IV bicarb and oral bicarb, currently improved. Patient is off all sodium bicarb. 4. Hypomagnesemia, status post replacement. 5. Cancer of the cecum, status post partial colectomy and ileostomy. 6. Urinary tract infection with Escherichia coli. PLAN: Continue to encourage increased oral intake. Follow-up labs as outpatient periodically. MMODL / IJN: [id number] /
--- NOTE | 2018-05-18 13:36 | P.DS ---
Providers Date of admission: 05/14/18 13:50 Expected date of discharge: 05/18/18 (Left arm midline placement) Attending physician: Renato Angel please copy to Dr. Angel Consults: 05/12/18 13:30 Consult Physician Stat Consulting Provider: Saray Galvan Consult Reason/Comments: Patient can't ambulate Do you want consulting provider notified?: Yes 05/12/18 14:27 Consult Physician Stat Consulting Provider: Rolando Barone Consult Reason/Comments: elevated troponin Do you want consulting provider notified?: Yes 05/13/18 13:50 Consult Physician Urgent Consulting Provider: Марина Antonio Consult Reason/Comments: high ileostomy output Do you want consulting provider notified?: Yes 05/13/18 17:33 Consult Physician Urgent Consulting Provider: Kendy Almonte Consult Reason/Comments: ALEXEI,CKD3 Do you want consulting provider notified?: Yes 05/16/18 13:19 Consult Physician Urgent Consulting Provider: Amarjit Rosenthal Consult Reason/Comments: Depression Do you want consulting provider notified?: Yes Primary care physician: Rolando Angel This is a dictation on discharge summary on date of service 05/18/2018, by Dr. Do Deal [facility] and temporary absence of Dr. Rolando Angel will be back on Wednesday please copy to Dr. Angel. Diagnoses: #1 acute kidney injury on the top of chronic kidney disease stage III with significant elevation of creatinine due to high colostomy output with fluid and electrolytes imbalance. #2 dehydration with prerenal patient currently stable #3 anemia with a history of cecal mass and left found to be adenocarcinoma and partial colectomy associated with right side ileostomy bag, with a high output. #4 E. coli urinary tract infection treated with IV followed by by mouth antibiotic. #5 history of left frontal CVA with no new stroke, with the speech disturbance waxing and waning. #6 inability to walk. #7 metabolic acidosis followed by metabolic alkalosis, currently cleared with normal bicarb and carbon dioxide. #8 history of abnormal troponin on admission seen by cardiology and stated that secondary to her renal a KCI. #10 atrial fibrillation with a controlled ventricular response. #11 history of fluctuating blood pressure with hypotension currently result continued on beta chung only twice a day., And discontinued the amlodipine. #12 she is on anticoagulant,elliquis. Cardiology. #13 status post placement in the left arm midline for the use of recurrent hydration with IV fluid, with obtaining a BMP say times a week. Please notify Dr. Angel on Wednesday with the patient presence in the [facility] and rehab. Consultation. #[address] Mejia/Dr. Almonte. #2 cardiology specialist. #3 Dr. Mccain/Dr. humphrey the surgeons. Presentation to the emergency room: Patient send from [facility] rehab because of her elevated creatinine, vein to place IV fluid and in need picc line . Hospital course: Patient found that she had acute kidney injury secondary to dehydration and the perianal, found also that she had high output of liquid and electrolytes through her colostomy/ileostomy back. Nephrology consultation requested as well as gastroenterology as well as Dr. Mccain the surgeon. Subsequently patient found to have UTI and treated initially with IV Rocephin and the found that the culture indicating Cipro or Levaquin and on trial of Levaquin has been failed and we discussed that with the pharmacy and advised with the continuation of the Augmentin and was started Augmentin 875 mg twice a day will be 5 days after discharge. Patient did well and PICC line was not acceptable because of her requests the blood thinner and that they did in the Midline which she will sufficient enough for the time needed for the IV hydration which is [address] Mccain reverse the colostomy. Examination on discharge her temperature 97.8 orally pulse 79/m regular respiratory rate 18 blood pressure 126/62 and mean is 83 and oxygen saturation 95%. Laboratory her sodium 136 potassium 3.8 chloride 101 carbon dioxide 35, checked all normal. Her estimated GFR at this time on discharge 53 for non- and her blood sugar was 86 and calcium 8. The physical exam: Head was normocephalic and atraumatic, pupils equal reactive, oropharynx natural days and able to eat and however on without dysphagia. Neck was supple no JVD no thyromegaly no lymphadenopathy trachea midline. Chest was clear to auscultation and percussion. The heart was regular irregular irregularity disease and she had the echocardiogram which indicating normal ejection fraction with the underlying atrial fibrillation Abdomen: Soft nontender pills positive bowel sound with the right ileostomy bag with the scalpel having a good output. Extremities no edema positive pulses and patient unable to stand or walk. Neurologically patient has history in December was left frontal CVA. Affecting her speech is well with the underlying paraparesis. Assessment: Patient stable general condition for transfer tomorrow [facility] and rehab and obtaining BMP say times a week and notifying Dr. Rolando Angel hold be back on service on Wednesday. Plan - Discharge Summary Discharge Rx Participant: No New Discharge Prescriptions: New Amoxic-Pot Clav 875-125Mg [Augmentin 875-125] 1 each PO Q12HR #5 tab Levothyroxine Sodium [Synthroid] 88 mcg PO DAILY@0630 tab Loperamide [Imodium] 2 mg PO QID cap Metoprolol Tartrate [Lopressor] 50 mg PO BID tab Continue Ergocalciferol (Vitamin D2) [Vitamin D2] 50,000 unit PO Q30D Apixaban [Eliquis] 2.5 mg PO BID Atorvastatin [Lipitor] 20 mg PO HS tab Pantoprazole [Protonix] 40 mg PO DAILY tablet. Ferrous Sulfate [Feosol] 325 mg PO DAILY #90 tab Acetaminophen Tab [Tylenol] 650 mg PO Q4HR PRN tab PRN Reason: Fever And/Or Mild Pain Discontinued Levothyroxine Sodium [Synthroid] 125 mcg PO DAILY Metoprolol Tartrate [Lopressor] 50 mg PO TID tab amLODIPine [Norvasc] 5 mg PO BID@1230,2100 tab Discharge Medication List Ergocalciferol (Vitamin D2) [Vitamin D2] 50,000 unit PO Q30D 05/12/17 [History] Apixaban [Eliquis] 2.5 mg PO BID 12/17/17 [History] Atorvastatin [Lipitor] 20 mg PO HS tab 12/28/17 [Rx] Pantoprazole [Protonix] 40 mg PO DAILY tablet. 12/28/17 [Rx] Ferrous Sulfate [Feosol] 325 mg PO DAILY #90 tab 03/24/18 [Rx] Acetaminophen Tab [Tylenol] 650 mg PO Q4HR PRN tab 03/30/18 [Rx] Amoxic-Pot Clav 875-125Mg [Augmentin 875-125] 1 each PO Q12HR #5 tab 05/18/18 [ Rx] Levothyroxine Sodium [Synthroid] 88 mcg PO DAILY@0630 tab 05/18/18 [Rx] Loperamide [Imodium] 2 mg PO QID cap 05/18/18 [Rx] Metoprolol Tartrate [Lopressor] 50 mg PO BID tab 05/18/18 [Rx] Follow up Appointment(s)/Referral(s): Rolando Angel MD [Primary Care Provider] - 1-2 days Марина Antonio DO [Doctor of Osteopathic Medicine] - 1 Week Activity/Diet/Wound Care/Special Instructions: draw BMP every MWF [place] midline for IV Hydration as needed Care Plan Goals (MU): Discharge plan: Patient is stable general condition for discharge today, stable vital sign with the temperature 97.8 and pulse 79/m irregular with the atrial fibrillation, respiratory rate 18, blood pressure 126/62 with a mean 83. Oxygen saturation 95% on room air. Laboratory stable. Discharge today and tomorrow [facility] and she had left arm midline for IV fluid if needed when necessary. Dr. Mccain the surgeon will see her in one week and he'll decided the following week for revision of her colostomy. She will get BMP 3 times a week for follow-up and admitted for rehydration. Due to her colostomy high output, and continuing the Imodium as prescribed by the surgeon first flaring every output. Discharge Disposition: TRANSFER TO SNF/ECF
[2018-06-10] MEDS ORDERED: ERGOCALCIFEROL 50,000 UNIT CAP PO SCH (09:00)
== END 2018-05-18 17:00 | DRG 683 ==
LOC: EC 09:15 → 3SCARD 12:35 → INTOOBSV 13:15 → OBSVTOIN 13:15 → 3SCARD 18:57 → OBSVTOIN 05-14 13:50
PROVIDERS: ADMIT Internal Medicine; ATTEND Internal Medicine
PROC: 05HC33Z Insertion of Infusion Device into Left Basilic Vein, Percutaneous Approach (ICD-10-PCS; principal; 2018-05-17 13:30)
PROC: B54NZZA Ultrasonography of Left Upper Extremity Veins, Guidance (ICD-10-PCS; 2018-05-17 13:30)
DX: N17.9 Acute kidney failure, unspecified (principal); E87.1 Hypo-osmolality and hyponatremia; E87.4 Mixed disorder of acid-base balance; I69.351 Hemiplegia and hemiparesis following cerebral infarction affecting right dominant side; N39.0 Urinary tract infection, site not specified; R47.01 Aphasia; Z68.1 Body mass index [BMI] 19.9 or less, adult; E44.1 Mild protein-calorie malnutrition; N18.3 Chronic kidney disease, stage 3 (moderate); B96.20 Unspecified Escherichia coli [E. coli] as the cause of diseases classified elsewhere; Z85.038 Personal history of other malignant neoplasm of large intestine; D64.9 Anemia, unspecified; E03.9 Hypothyroidism, unspecified; E05.90 Thyrotoxicosis, unspecified without thyrotoxic crisis or storm; E78.5 Hyperlipidemia, unspecified; E83.42 Hypomagnesemia; E86.0 Dehydration; E86.1 Hypovolemia; F32.9 Major depressive disorder, single episode, unspecified; I12.9 Hypertensive chronic kidney disease with stage 1 through stage 4 chronic kidney disease, or unspecified chronic kidney disease; I48.0 Paroxysmal atrial fibrillation; I48.2 Chronic atrial fibrillation; K21.9 Gastro-esophageal reflux disease without esophagitis; M41.9 Scoliosis, unspecified; R32 Unspecified urinary incontinence; Z79.01 Long term (current) use of anticoagulants; Z79.890 Hormone replacement therapy; Z79.899 Other long term (current) drug therapy; Z80.0 Family history of malignant neoplasm of digestive organs; Z80.3 Family history of malignant neoplasm of breast; Z82.0 Family history of epilepsy and other diseases of the nervous system; Z83.3 Family history of diabetes mellitus; Z88.1 Allergy status to other antibiotic agents; Z90.49 Acquired absence of other specified parts of digestive tract; Z93.2 Ileostomy status; Z93.3 Colostomy status; Z96.651 Presence of right artificial knee joint; Z88.5 Allergy status to narcotic agent; I95.9 Hypotension, unspecified
CPT/HCPCS: 36410; 36415; 70450; 76937; 80048; 80053; 81001; 82728; 83540; 83550; 83735; 84439; 84443; 84484; 85025; 87077; 87086; 87186; 93005; 93306; 93308; 93880; 96361; 96365; 96366; 99285

== ENCOUNTER 2018-06-09 09:42 | Inpatient (IN) | payer MEDICARE ==
[2018-06-06 14:06] VITALS: BMI 20.5
[~2018-06-09 09:42] MED LIST changes: +DEXAMETHASONE SOD PHOSPHATE 10 MG/ML 1 ML VIAL IV ONE; +HEPARIN SODIUM,PORCINE 5,000 UNIT/ML 1 ML VIAL SQ ONE; -HUMAN PROTHROMBIN COMPLX 500 UNIT/16 ML VIAL IV ONE; +LACTATED RINGERS 1,000 ML IV SCH; +LIDOCAINE 1% 20 ML VIAL (10MG/ML) FOR IV START INTRADERMA PRN; +MIDAZOLAM (PF) 2 MG/2 ML VIAL IV PRN; +ONDANSETRON 4 MG/2 ML VIAL IVP ONE; +ceFAZolin IN SWFI 2 GM/20 ML SYRINGE IVP ONE; +fentaNYL (PF) 50 MCG/ML 2 ML AMP IV PRN; +metroNIDAZOLE-NS PMX 500 MG in SALINE 1 100ML.BAG IVPB ONE
[2018-06-09] MEDS ORDERED: ETOMIDATE 2 MG/ML 10 ML VIAL ONE (10:48)
[2018-06-09] MEDS ORDERED: NEOSTIGMINE 1 MG/ML 10 ML VIAL ONE (10:48)
[2018-06-09] MEDS ORDERED: fentaNYL (PF) 50 MCG/ML 2 ML AMP ONE (10:48)
[2018-06-09] MEDS ORDERED: PHENYLEPHRINE-0.9% NACL SYG 1 MG/10 ML SYRINGE ONE (10:48)
[2018-06-09] MEDS ORDERED: ROCURONIUM BROMIDE 10 MG/ML 10 ML VIAL IV ONE (10:48)
[2018-06-09] MEDS ORDERED: GLYCOPYRROLATE 0.2 MG/ML 2 ML VIAL ONE (10:48)
[2018-06-09] MEDS ORDERED: ONDANSETRON 4 MG/2 ML VIAL IVP PRN (12:52)
--- NOTE | 2018-06-09 13:10 | P.OP ---
Date of Procedure: 06/09/18 Preoperative Diagnosis: History of colon cancer Ileostomy Postoperative Diagnosis: History of colon cancer Ileostomy Procedure(s) Performed: Closure of ileostomy Anesthesia: BERNY Surgeon: Марина Antonio Pathology: other (Ileostomy) Condition: stable Disposition: floor Indications for Procedure: 82-year-old female that initially underwent a right colectomy secondary to colorectal cancer. Patient also had an ileostomy placed in the perioperative period due to concern of possible anastomotic leak. The patient now returns for reversal of the ileostomy. The patient was explained the risks, benefits and alternatives to the procedure. The patient did provide consent prior to attending the operating suite. Operative Findings: Ileostomy reversal, no apparent leak Description of Procedure: The patient was brought to the operating suite and placed in supine position on the operating table. The patient received preoperative antibiotics as well as heparin. The patient then underwent general endotracheal intubation. The patient was prepped and draped in regular sterile fashion. A circumferential incision was made around the mucocutaneous junction of the ileostomy. Dissection was then carried down to the fascia circumferentially using both sharp and cautery dissection. The small bowel adherence to the fascia was noted. Dissection was carried to detach the small bowel from the fascia. There were some notable adhesions below the fascia and these were dissected meticulously with Metzenbaum scissors. The 2 limbs of the loop ileostomy were then delivered. The adhesions between the 2 limbs were then taken down sharply and the edges were trimmed. At this point, plan was to make an anastomosis. An enterotomy was created on each limb and a JASPAL 60 mm purple load stapler was fired creating an anastomosis in a functional end-to-end, [id number] technique. This anastomosis was extended with an additional 45 mm purple staple load. The resulting enterotomy was closed with a TX 60 loaded stapler. The abdomen was then irrigated and aspirated. The anastomosis was then delivered back into the abdomen with no obvious leak while testing the anastomosis. The fascia was then closed with a running looped PDS suture. The whole wound was then thoroughly irrigated. The resulting wound was closed in a pursestring fashion using a 3-0 Vicryl suture. The wound was then packed with iodoform packing. The patient was awakened in the operating suite and taken to postanesthesia care unit in stable condition.
[2018-06-09] MEDS: LACTATED RINGERS 1,000 ML IV SCH (13:51)
[2018-06-09] MEDS: HEPARIN SODIUM,PORCINE 5,000 UNIT/ML 1 ML VIAL SQ SCH (14:35)
[2018-06-09] MEDS: METOCLOPRAMIDE 5 MG/ML 2 ML VIAL IVP SCH (15:48)
[2018-06-09] MEDS: metroNIDAZOLE-NS PMX 500 MG in SALINE 1 100ML.BAG IVPB SCH (15:48)
[2018-06-09] MEDS: HYDROmorphone 0.5 MG/0.5 ML SYRINGE IVP PRN (22:21)
[2018-06-09] MEDS: METOPROLOL TARTRATE 50 MG TAB PO SCH (22:21)
[2018-06-09] MEDS: FAMOTIDINE 20 MG/2 ML VIAL IV SCH (22:21)
[2018-06-09] MEDS: ATORVASTATIN 20 MG TAB PO SCH (22:21)
[2018-06-10] MEDS: metroNIDAZOLE-NS PMX 500 MG in SALINE 1 100ML.BAG IVPB SCH ×2 (00:45→07:59)
[2018-06-10] MEDS: LACTATED RINGERS 1,000 ML IV SCH ×3 (00:45→15:13)
[2018-06-10] MEDS: METOCLOPRAMIDE 5 MG/ML 2 ML VIAL IVP SCH ×3 (00:45→15:48)
[2018-06-10] MEDS: HEPARIN SODIUM,PORCINE 5,000 UNIT/ML 1 ML VIAL SQ SCH ×2 (00:45→08:00)
[2018-06-10] MEDS: HYDROmorphone 0.5 MG/0.5 ML SYRINGE IVP PRN ×2 (04:48→15:48)
[2018-06-10] MEDS: LEVOTHYROXINE 88 MCG TAB PO SCH (05:42)
--- NOTE | 2018-06-10 06:18 | CONS ---
CONSULTATION Patient's primary care physician is Dr. Rolando Angel. Consultation regarding medical evaluation and management. HISTORY OF PRESENT ILLNESS: This is an 82-year-old female admitted to the hospital for reversal of a colostomy. The patient was asked to be seen for medical management. Dr. Angel, however, is away and I am covering for him. This patient recently had a partial colectomy for right cecal mass which was a malignancy. She had significant anemia then. The patient had significant debility and was admitted to [facility] for rehabilitation. She has returned back here for the surgical procedure. 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 She has history of chronic atrial fibrillation. Postoperatively, the patient's heart rate has been in the range of 100 to 120, irregular. She has blood pressure in the 90s. Otherwise, patient is fully alert. PAST MEDICAL HISTORY: Past medical history as mentioned above, history of CVA, atrial fibrillation, carcinoma of colon, history of gastroesophageal reflux, history of essential hypertension, history of hypothyroidism. PAST SURGICAL HISTORY: Previous partial colectomy. PERSONAL HISTORY: Nonsmoker. No alcohol. ALLERGIES: CODEINE and CIPROFLOXACIN. MEDICATIONS: Medications at time of admission was Protonix 40 mg daily, metoprolol 50 mg b.i.d., Synthroid 88 mcg daily, ferrous sulfate daily, vitamin D daily, atorvastatin 20 mg daily, Eliquis 2.5 mg b.i.d. SOCIAL HISTORY: Patient is at a nursing facility for rehab. FAMILY MEDICAL HISTORY: Noncontributory. REVIEW OF SYSTEMS: NEURO: Denies any headaches, dizziness, double vision or blurred vision. PSYCH: Some anxiety. CARDIAC: Denies chest pain, angina, palpitation. RESPIRATORY: Denies shortness of breath, cough. GI: No nausea, vomiting. Present complaint of abdominal pain. No diarrhea. No bowel movement. : No symptoms of dysuria, hematuria. EXTREMITIES: Denies pain edema. CONSTITUTIONAL: No fever or chills. PHYSICAL EXAMINATION: A pleasant female at present in no distress. Vital signs revealed blood pressure 99/62, pulse 105, afebrile, pulse ox of 94% on room air. HEENT: Normocephalic. Neck no JVD. Pupils are reactive. Oral cavity is dry. Chest examination is clear to auscultation. CARDIAC: Normal S1, S2 with no gallops. Irregularly, irregular rhythm. Systolic murmur 2/6 left sternal border in the apex. ABDOMEN: Tender. Bowel sounds absent. Extremities reveal no edema, no tenderness. NEUROLOGIC: Awake, alert, oriented, well-coordinated movements both upper extremities and lower extremities. Limited because of pain in the abdomen. The patient has adequate peripheral pulses. LABORATORY ASSESSMENT: None new. ASSESSMENT: 1. Atrial fibrillation with rapid ventricular rate. 2. History of chronic atrial fibrillation. 3. Status post reversal of colostomy. 4. History of carcinoma of the colon. 5. History of chronic kidney disease stage 3. PLAN: The patient is stable. Continue present medical regimen. The patient will be given increased IV fluids. The patient will also be restarted on metoprolol to help control her cardiac rate. The patient's condition is discussed with the patient and Dr. Antonio at the bedside. Prognosis guarded. MMODL / IJN: [id number] /
[2018-06-10] MEDS: METOPROLOL TARTRATE 50 MG TAB PO SCH ×2 (08:00→19:46)
[2018-06-10] MEDS: FAMOTIDINE 20 MG/2 ML VIAL IV SCH ×2 (08:00→19:47)
[2018-06-10] MEDS ORDERED: HYDROmorphone 1 MG/ML 1 ML SYRINGE IVP PRN (08:16)
[2018-06-10 08:49] LABS: Anisocytosis Slight; Basophils % (A) 0 %; Eosinophils % (A) 0 %; HCT 34.3 % (34.0-46.0); HGB 10.8 gm/dL (11.4-16.0); Hypochromasia Slight; Lymphocytes # (A) 0.9 k/uL (1.0-4.8); Lymphocytes % (A) 8 %; MCH 27.7 pg (25.0-35.0); MCHC 31.3 g/dL (31.0-37.0); MCV 88.2 fL (80.0-100.0); Mean Platelet Volume 7.7; Microcytosis Slight; Monocytes # (A) 0.7 k/uL (0-1.0); Monocytes % (A) 7 %; Neutrophils # (A) 9.1 k/uL (1.3-7.7); Neutrophils % (A) 83 %; Platelet Count 295 k/uL (150-450); RBC 3.89 m/uL (3.80-5.40); RDW 18.9 % (11.5-15.5); WBC 10.9 k/uL (3.8-10.6)
[2018-06-10 09:04] LABS: Potassium 4.6 mmol/L (3.5-5.1)
--- NOTE | 2018-06-10 13:29 | P.CRDCN ---
History of Present Illness History of present illness: This is a pleasant 82-year-old female past medical history significant for paroxysmal atrial fibrillation on long-term anticoagulation, colon cancer status post colectomy, hypertension, chronic kidney disease, dyslipidemia and prior CVA. She underwent ileostomy reversal yesterday with Dr. Antonio. We have been asked to see her in consultation for atrial fibrillation with rapid ventricular response. She is seen and examined laying flat resting comfortably in bed in no acute distress. She is complaining of significant abdominal discomfort. She denies significant chest pain, shortness of breath, no dizziness or palpitations. However when she points to her abdominal pain she states she also feels discomfort in the midsternal/ epigastric region. She states she could feel palpitations last evening however they have resolved. No EKG for review. She has a history of gastrointestinal bleeding recently in the past and therefore is on Eliquis 2.5 mg twice a day and no aspirin. Laboratory data reviewed, WBC 10.9, hemoglobin 10.8, platelets 295, sodium 139, potassium 4.6, creatinine 1.09. Current cardiac medications include Lopressor 50 mg twice a day, Eliquis 2.5 mg twice a day and atorvastatin 20 mg daily. Most recent echocardiogram obtained in May 2018 reveals preserved left ventricular systolic function with ejection fraction 55-60%. At the time of my exam: CONSTITUTIONAL: Denies fever. Denies chills. EYES: Denies blurred vision. Denies vision changes. Denies eye pain. EARS, NOSE, MOUTH & THROAT: Denies headache. Denies sore throat. Denies ear pain. CARDIOVASCULAR: Denies chest pain. Denies shortness of breath. Denies orthopnea. Denies PND. Denies palpitations. RESPIRATORY: Denies cough. GASTROINTESTINAL: Complains of abdominal pain. Denies diarrhea. Denies constipation. Denies nausea. Denies vomiting. MUSCULOSKELETAL: Denies myalgias. INTEGUMENTARY: Denies pruitis. Denies rash. NEUROLOGIC: Denies numbness. Denies tingling. Denies weakness. PSYCHIATRIC: Denies anxiety. Denies depression. ENDOCRINE: Denies fatigue. Denies weight change. Denies polydipsia. Denies polyurina. GENITOURINARY: Denies burning, hematuria or urgency with micturation. HEMATOLOGIC: Denies history of anemia. Denies bleeding. Blood pressure 99/61 heart rate 60 afebrile maintaining oxygen saturation on room air GENERAL: This is a 82-year-old female in no apparent distress at the time of my examination. HEENT: Head is atraumatic, normocephalic. Pupils are equal, round. Sclerae anicteric. Conjunctivae are clear. Mucous membranes of the mouth are moist. Neck is supple. There is no jugular venous distention. No carotid bruit is heard. LUNGS: Clear to auscultation no wheezes, rales or rhonchi. No chest wall tenderness is noted on palpation or with deep breathing. HEART: Regular rate and rhythm without murmurs, rubs or gallops. S1 and S2 heard. ABDOMEN: Soft, nontender. Bowel sounds are heard. No organomegaly noted. EXTREMITIES: No evidence of peripheral edema and no calf tenderness noted. VASCULAR: Radial and dorsalis pedis pulses palpated, no evidence of clubbing. NEUROLOGIC: Patient is awake, alert and oriented x3. ASSESSMENT Status post ileostomy reversal Paroxysmal atrial fibrillation on long-term anticoagulation with episode of rapid ventricular response Hypertension History of colon carcinoma s/p colectomy Chronic kidney disease PLAN Telemetry tracings reviewed reveal deep T-wave inversions in the inferior leads. Obtain stat EKG, limited echocardiogram and troponin. Continue Eliquis, atorvastatin, Lopressor as previously ordered. Telemetry tracings are concerning for ischemia. Further recommendations to follow. Prognosis guarded at this time. We will continue to follow closely. Thank you kindly for this consultation. Nurse Practitioner note has been reviewed, I agree with a documented findings and plan of care. Patient was seen and examined. 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 Chronic renal failure, hypertension, hyperlipidemia, hypothyroidism, history of rheumatic fever, history of scarlet fever,uti-ecoli , vit d deficiency, colon cancer(sx-ileostomy), hx paroxysaml afib History of Any Multi-Drug Resistant Organisms: None Reported Past Surgical History: Adenoidectomy, Tonsillectomy Additional Past Surgical History / Comment(s): part of thyroid removed, colonoscopy, colectomy-2nd expolatroy sx same admission ended up with ileostomy Past Anesthesia/Blood Transfusion Reactions: Unable to Obtain Additional Past Anesthesia/Blood Transfusion Reaction / Comment(s): patient states she had a hard time waking up after having anesthesia. received blood trnsfusions- no reaction Past Psychological History: Unable to Obtain Additional Psychological History / Comment(s): current resides at [facility]. pt stated she is bed bound Smoking Status: Never smoker Past Alcohol Use History: None Reported Past Drug Use History: None Reported - Past Family History Father Family Medical History: No Reported History Additional Family Medical History / Comment(s): parkinsons Mother History Unknown: Yes Family Medical History: Cancer, Diabetes Mellitus Additional Family Medical History / Comment(s): colon cancer Sister(s) Additional Family Medical History / Comment(s): breast cancer Medications and Allergies Home Medications Medication Instructions Recorded Confirmed Type Ergocalciferol (Vitamin D2) 50,000 unit PO Q30D 05/12/17 06/09/18 History [Vitamin D2] Apixaban [Eliquis] 2.5 mg PO BID 12/17/17 06/09/18 History Atorvastatin [Lipitor] 20 mg PO HS tab 12/28/17 06/09/18 Rx Pantoprazole [Protonix] 40 mg PO DAILY tablet. 12/28/17 06/09/18 Rx Ferrous Sulfate [Feosol] 325 mg PO DAILY #90 tab 03/24/18 06/09/18 Rx Acetaminophen Tab [Tylenol] 650 mg PO Q4HR PRN tab 03/30/18 06/09/18 Rx Levothyroxine Sodium [Synthroid] 88 mcg PO DAILY@0630 tab 05/18/18 06/09/18 Rx Loperamide [Imodium] 2 mg PO QID cap 05/18/18 06/09/18 Rx Metoprolol Tartrate [Lopressor] 50 mg PO BID tab 05/18/18 06/09/18 Rx Bisacodyl [Dulcolax] 10 mg RECTAL DAILY PRN 06/06/18 06/09/18 History Magnesium Hydroxide [Milk of 30 ml PO DAILY PRN 06/06/18 06/09/18 History Magnesia Concentrate] Mylanta Suspension 200-200-20 Mg/5l 15 ml PO TID 06/06/18 06/09/18 History Na Phos,M-B/Na Phos,Di-Ba [Fleet 1 dose RECTAL DAILY PRN 06/06/18 06/09/18 History Adult] Allergies Allergy/AdvReac Type Severity Reaction Status Date / Time codeine Allergy Rash/Hives Verified 06/09/18 14:21 ciprofloxacin AdvReac Diarrhea Verified 06/09/18 14:21 Physical Exam Vitals: Vital Signs Temp Pulse Resp BP Pulse Ox 06/10/18 08:09 98.0 F 60 16 99/61 96 06/10/18 00:45 97.7 F 58 L 18 99/58 99 06/09/18 19:40 97.6 F 89 19 108/66 98 06/09/18 16:29 94 L 06/09/18 15:45 105 H 99/62 06/09/18 15:30 117 H 103/67 06/09/18 15:15 118 H 106/73 06/09/18 15:00 92 103/66 06/09/18 14:45 122 H 94/59 06/09/18 14:30 104 H 112/71 06/09/18 14:15 107 H 93/63 06/09/18 14:00 97.9 F 110 H 16 117/74 98 06/09/18 13:45 57 L 16 132/59 98 06/09/18 13:30 58 L 16 124/58 100 06/09/18 13:15 60 16 145/63 100 06/09/18 12:58 97.2 F L 68 16 124/56 97 06/09/18 10:12 97.8 F 64 16 132/62 100 Intake and Output 06/09/18 06/10/18 06/10/18 22:59 06:59 14:59 Intake Total 800 500 Balance 800 500 Intake: Intake, IV Titration 800 500 Amount Lactated Ringers 1,000 ml 800 400 @ 100 mls/hr IV .Q10H SHABBIR Rx#:[id number] metroNIDAZOLE-NS PMX 500 100 mg In Saline 1 100ml.bag @ 100 mls/hr IVPB Q8HR SHABBIR Rx#:[id number] Other: Voiding Method Diaper Diaper Incontinent Incontinent # Voids 1 Results 06/10/18 07:58 06/10/18 07:58 CBC 06/10/18 Range/Units 07:58 WBC 10.9 H (3.8-10.6) k/uL RBC 3.89 (3.80-5.40) m/uL Hgb 10.8 L (11.4-16.0) gm/dL Hct 34.3 (34.0-46.0) % Plt Count 295 (150-450) k/uL Comprehensive Metabolic Panel 06/10/18 Range/Units 07:58 Sodium 139 (137-145) mmol/L Potassium 4.6 (3.5-5.1) mmol/L Chloride 115 H (98-107) mmol/L Carbon Dioxide 18 L (22-30) mmol/L BUN 27 H (7-17) mg/dL Creatinine 1.09 H (0.52-1.04) mg/dL Glucose 89 (74-99) mg/dL Calcium 9.0 (8.4-10.2) mg/dL Current Medications Generic Name Dose Route Start Last Admin Trade Name Freq PRN Reason Stop Dose Admin Apixaban 2.5 mg 06/10/18 21:00 Eliquis PO BID SHABBIR Atorvastatin Calcium 20 mg 06/09/18 21:00 06/09/18 22:21 Lipitor PO 20 mg HS SHABBIR Administration Famotidine 20 mg 06/09/18 21:00 06/10/18 08:00 Pepcid IV 20 mg BID SHABBIR Administration Heparin Sodium (Porcine) 5,000 unit 06/09/18 16:00 06/10/18 08:00 Heparin SQ 5,000 unit Q8HR SHABBIR Administration Hydromorphone HCl 0.5 mg 06/09/18 12:52 06/10/18 04:48 Dilaudid IVP 0.5 mg Q3HR PRN Administration Severe Pain Hydromorphone HCl 1 mg 06/10/18 08:16 Dilaudid IVP Q3HR PRN Pain Lactated Ringer's 1,000 mls @ 100 mls/hr 06/09/18 13:15 06/10/18 09:17 Lactated Ringers IV Not Given .Q10H SHABBIR Levothyroxine Sodium 88 mcg 06/10/18 06:30 06/10/18 05:42 Synthroid PO 88 mcg DAILY@0630 SHABBIR Administration Lidocaine HCl 0.1 ml 06/09/18 06:57 06/09/18 10:43 .Xylocaine 1% Inj (10mg/Ml) For Iv Start INTRADERMA 0.1 ml PER PROTOCOL PRN Administration IV Start Metoclopramide HCl 10 mg 06/09/18 16:00 06/10/18 07:59 Reglan IVP 10 mg Q8HR SHABBIR Administration Metoprolol Tartrate 50 mg 06/09/18 21:00 06/10/18 08:00 Lopressor PO 50 mg BID SHABBIR Administration Ondansetron HCl 4 mg 06/09/18 12:52 Zofran IVP Q8HR PRN Nausea And Vomiting Intake and Output 06/09/18 06/10/18 06/10/18 22:59 06:59 14:59 Intake Total 800 500 Balance 800 500 Intake: Intake, IV Titration 800 500 Amount Lactated Ringers 1,000 ml 800 400 @ 100 mls/hr IV .Q10H SHABBIR Rx#:[id number] metroNIDAZOLE-NS PMX 500 100 mg In Saline 1 100ml.bag @ 100 mls/hr IVPB Q8HR SHABBIR Rx#:[id number] Other: Voiding Method Diaper Diaper Incontinent Incontinent # Voids 1 06/10/18 07:58 06/10/18 07:58
--- NOTE | 2018-06-10 13:44 | P.PN ---
Subjective Progress Note Date: 06/10/18 Patient seen and examined at bedside. Postoperative day #1 from ileostomy reversal. Earlier, the patient did complain of some pain at the surgical site but states that that has improved with pain medication. Denies any nausea vomiting. Not having any bowel function as of yet. Objective - Vital Signs Vital signs: Vital Signs Temp 98.0 F 06/10/18 08:09 Pulse 60 06/10/18 08:09 Resp 16 06/10/18 08:09 BP 99/61 06/10/18 08:09 Pulse Ox 96 06/10/18 08:09 Intake & Output 06/09/18 06/10/18 06/10/18 18:59 06:59 18:59 Intake Total 1150 1300 Output Total 100 Balance 1050 1300 Intake: IV 1150 Intake, IV Titration 1300 Amount Lactated Ringers 1,000 ml 1200 @ 100 mls/hr IV .Q10H [facility] Rx#:[id number] metroNIDAZOLE-NS PMX 500 100 mg In Saline 1 100ml.bag @ 100 mls/hr IVPB Q8HR [facility] Rx#:[id number] Output: Estimated Blood Loss 100 Other: Voiding Method Diaper Diaper Incontinent Incontinent # Voids 1 - Constitutional General appearance: Present: cooperative, no acute distress - Respiratory Details: No difficulty with respiration - Gastrointestinal Gastrointestinal Comment(s): Soft, appropriate tenderness, nondistended, no rebound, guarding, surgical site with packing in place - Psychiatric Psychiatric: Present: A&O x's 3 - Labs CBC & Chem 7: 06/10/18 07:58 06/10/18 07:58 Labs: Abnormal Lab Results - Last 24 Hours (Table) 06/10/18 06/10/18 Range/Units 07:58 07:58 WBC 10.9 H (3.8-10.6) k/uL Hgb 10.8 L (11.4-16.0) gm/dL RDW 18.9 H (11.5-15.5) % Neutrophils # 9.1 H (1.3-7.7) k/uL Lymphocytes # 0.9 L (1.0-4.8) k/uL Chloride 115 H (98-107) mmol/L Carbon Dioxide 18 L (22-30) mmol/L BUN 27 H (7-17) mg/dL Creatinine 1.09 H (0.52-1.04) mg/dL Assessment and Plan Plan: Postoperative day #1 from ileostomy reversal - Patient did have an episode of atrial fibrillation with rapid ventricular rhythm. She is known to have a history of A. fib and is on beta chung along with anticoagulation. Cardiology has been consultation. - Continue ice chips and popsicles and await bowel function - Pain control - Continue to increase activity - Progressing slowly
[2018-06-10] MEDS ORDERED: HEPARIN SODIUM,PORCINE 5,000 UNIT/ML 1 ML VIAL IV PRN (14:04)
[2018-06-10 14:42] LABS: Anisocytosis Slight; Basophils % (A) 0 %; Eosinophils # (A) 0.1 k/uL (0-0.7); Eosinophils % (A) 1 %; HCT 33.7 % (34.0-46.0); HGB 10.9 gm/dL (11.4-16.0); Lymphocytes # (A) 0.8 k/uL (1.0-4.8); Lymphocytes % (A) 8 %; MCH 28.2 pg (25.0-35.0); MCHC 32.5 g/dL (31.0-37.0); MCV 86.7 fL (80.0-100.0); Mean Platelet Volume 8.1; Microcytosis Slight; Monocytes # (A) 0.6 k/uL (0-1.0); Monocytes % (A) 7 %; Neutrophils # (A) 7.8 k/uL (1.3-7.7); Neutrophils % (A) 83 %; Platelet Count 262 k/uL (150-450); RBC 3.88 m/uL (3.80-5.40); RDW 19.1 % (11.5-15.5); WBC 9.4 k/uL (3.8-10.6)
[2018-06-10 14:47] LABS: Cholesterol 60 mg/dL (<200); HDL Cholesterol 30 mg/dL (40-60); LDL Cholesterol,Calculated 14 mg/dL (0-99); Triglycerides 78 mg/dL (<150)
[2018-06-10 14:51] LABS: INR 1.2 (<1.2)
[2018-06-10] MEDS: ASPIRIN 81 MG PO SCH (15:47)
[2018-06-10] MEDS: HEPARIN SOD,PORK IN 0.45% NACL 25,000 UNIT in 0.45% NACL 1 250ML.BAG IV SCH (15:49)
[2018-06-10] MEDS: ATORVASTATIN 20 MG TAB PO SCH (19:47)
[2018-06-10] MEDS ORDERED: APIXABAN 2.5 MG TABLET PO SCH (21:00)
--- NOTE | 2018-06-10 22:54 | PN ---
PROGRESS NOTE Consulting physician: Dr. Tom Pritchard for Dr. Rolando Angel. CHIEF COMPLAINT: Re-evaluation. HISTORY OF PRESENT ILLNESS: This 82-year-old female is status post surgery yesterday for reversal of colostomy. The patient has carcinoma of the colon, for which she had right hemicolectomy. She has underlying history of paroxysmal atrial fibrillation. The patient was having atrial fibrillation with rapid ventricular rate yesterday which has been treated, and she is feeling better. This morning she is in sinus rhythm. She is going to be started back on Eliquis this evening. The patient otherwise has had no nausea or vomiting. She is on some clear liquids. REVIEW OF SYSTEMS: NEURO: Denies any headaches, dizziness. PSYCH: Some anxiety. CARDIAC: No chest pain, angina, palpitations. RESPIRATORY: Denies shortness of breath, cough. GI: No nausea, vomiting. Some abdominal pain. No diarrhea. : No symptoms. EXTREMITIES: Denies pain, edema. CONSTITUTIONAL: No fever, chills. PHYSICAL EXAMINATION: Pleasant 82-year-old female appears in no distress but does complain of significant pain. VITAL SIGNS: Temperature 98, pulse 60, respirations 16, blood pressure 99/61, pulse ox 96% on room air. HEENT: Normocephalic. NECK: No JVD. CHEST: Clear to auscultation. CARDIAC: Normal S1, S2 with no gallops. Regular rhythm. ABDOMEN: Tender. Bowel sounds present. Extremities reveal no edema, no tenderness. NEUROLOGIC: Awake, alert, oriented to place and person. Moves both upper extremities fairly well. LABORATORY ASSESSMENT: CBC which reveals white count of 9.4, hemoglobin 10.9, platelets 262. INR is normal. BUN 27, creatinine 1.09. ASSESSMENT: 1. Atrial fibrillation, paroxysmal. 2. Status post abdominal surgery. 3. History of cancer of the colon. 4. Chronic kidney disease, stage III. PLAN: Continue present medical regimen. Patient's condition was discussed with the patient. Prognosis guarded. Patient will be placed on increased dose of Dilaudid for pain. MMODL / IJN: [id number] /
[2018-06-10 23:11] LABS: Glucose,Whole Blood 86 mg/dL (75-99)
[2018-06-11] MEDS: METOCLOPRAMIDE 5 MG/ML 2 ML VIAL IVP SCH ×4 (00:44→22:41)
[2018-06-11 04:00] LABS: Anisocytosis Slight; Basophils # (A) 0.1 k/uL (0-0.2); Basophils % (A) 1 %; Eosinophils # (A) 0.1 k/uL (0-0.7); Eosinophils % (A) 1 %; HCT 33.2 % (34.0-46.0); HGB 10.4 gm/dL (11.4-16.0); Hypochromasia Slight; Lymphocytes # (A) 1.1 k/uL (1.0-4.8); Lymphocytes % (A) 12 %; MCH 27.9 pg (25.0-35.0); MCHC 31.3 g/dL (31.0-37.0); MCV 89.1 fL (80.0-100.0); Mean Platelet Volume 7.1; Microcytosis Slight; Monocytes # (A) 0.5 k/uL (0-1.0); Monocytes % (A) 6 %; Neutrophils # (A) 6.9 k/uL (1.3-7.7); Neutrophils % (A) 79 %; Platelet Count 240 k/uL (150-450); RBC 3.72 m/uL (3.80-5.40); RDW 18.7 % (11.5-15.5); WBC 8.8 k/uL (3.8-10.6)
[2018-06-11] MEDS: HYDROmorphone 0.5 MG/0.5 ML SYRINGE IVP PRN ×3 (04:02→21:36)
[2018-06-11 04:22] LABS: Calcium 8.5 mg/dL (8.4-10.2); Potassium 3.8 mmol/L (3.5-5.1)
[2018-06-11] MEDS: LEVOTHYROXINE 88 MCG TAB PO SCH (06:21)
[2018-06-11] MEDS: LACTATED RINGERS 1,000 ML IV SCH ×3 (06:24→21:36)
[2018-06-11 06:44] LABS: Glucose,Whole Blood 71 mg/dL (75-99)
--- NOTE | 2018-06-11 08:19 | ECHOF ---
Referral Reason:abnormal ekg after surgery MEASUREMENTS -------- HEIGHT: 165.1 cm WEIGHT: 56.7 kg BP: FINDINGS -------- Echo done 05/16/18: limited study for EGK Changes. Overall left ventricular systolic function is mild-moderately impaired with, an EF between 40 - 45 %. Apical septum LV wall motion is hypokinetic. [place] Hypokinesis. Distal Septal Hypokinesis. CONCLUSIONS -------- 1. Echo done 05/16/18: limited study for EGK Changes. 2. Overall left ventricular systolic function is mild-moderately impaired with, an EF between 40 - 45 %. 3. Apical septum LV wall motion is hypokinetic. 4. [place] Hypokinesis. 5. Distal Septal Hypokinesis. FLOOR POLISHER: Leilani Bauer RDCS
[2018-06-11] MEDS: FAMOTIDINE 20 MG/2 ML VIAL IV SCH (09:07)
[2018-06-11] MEDS: METOPROLOL TARTRATE 50 MG TAB PO SCH ×2 (09:07→17:55)
[2018-06-11] MEDS: ASPIRIN 81 MG PO SCH (09:07)
--- NOTE | 2018-06-11 13:27 | P.PN ---
Subjective Progress Note Date: 06/11/18 Principal diagnosis: Status post abdominal surgery/atrial fibrillation chronic This 82-year-old female was admitted to the hospital by Dr. Antonio. Patient underwent reversal of her colostomy. 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 She has underlying history of chronic atrial fibrillation and postoperatively has continued to be in so. Cardiology is in the patient and the nurse practitioners was concerned about a cardiac infarct as patient had abdominal pain in the epigastric area. EKG shows atrial fibrillation with no acute changes. Patient's troponin borderline elevations suggestive more of demand supply mismatch. Patient has has been on heparin drip and will discontinue this. I did discuss with the clinical account specialist. She'll go back on our request. Patient's general condition is improved she feels much better pains better control she is still nothing by mouth awaiting further surgical evaluation. There is no evidence of bleeding. No tenderness present. REVIEW OF SYSTEMS: Neuro: Denies any headaches dizziness. Psych: Denies anxiety depression feels oriented. Cardiac: Denies chest pain and angina palpitations. Respiratory: Denies shortness of breath cough. GI: Improved abdominal pain with no nausea vomiting no bowel movement does hear some bowel gurgling hasn't passed any flatus : Denies dysuria hematuria. Extremities: Denies pain. No edema. Skin: Intact. Constitutional: No fever, chills. Objective - Vital Signs Vital signs: Vital Signs Temp 98.5 F 06/11/18 11:41 Pulse 113 H 06/11/18 11:41 Resp 20 06/11/18 11:41 BP 104/55 06/11/18 11:41 Pulse Ox 95 06/11/18 11:41 Intake & Output 06/10/18 06/11/18 06/11/18 18:59 06:59 18:59 Intake Total 100 1379.698 180 Balance 100 1379.698 180 Weight 62 kg Intake: IV 100 Lactated Ringers 1,000 ml 100 @ 100 mls/hr IV .Q10H [facility] Rx#:[id number] Intake, IV Titration 1179.698 Amount Heparin Sod,Pork in 0.45% 79.698 NaCl 25,000 unit In 0.45 % NaCl 1 250ml.bag @ 12 UNITS/KG/HR 6.8 mls/hr IV .Q24H [facility] Rx#:[id number] Lactated Ringers 1,000 ml 1100 @ 100 mls/hr IV .Q10H [facility] Rx#:[id number] Oral 200 180 Other: Voiding Method Diaper Diaper Diaper Incontinent Incontinent Incontinent # Voids 1 2 1 PHYSICAL EXAMINATION: Cooperative, at present in no acute distress. HEENT: Neck supple. No JVD. Chest: Clear to auscultation Cardiac: Normal S1-S2 with no gallops irregularly irregular rhythm, systolic murmur 2/6 left sternal border . Abdomen: Mildly tender faint bowel sounds left lower quadrant Extremities: No edema no tenderness Neurologically: Awake, alert, oriented with well-coordinated movements. - Labs CBC & Chem 7: 06/11/18 03:49 06/11/18 03:49 Labs: Abnormal Lab Results - Last 24 Hours (Table) 06/10/18 06/10/18 06/10/18 Range/Units 14:21 14:21 14:21 RBC (3.80-5.40) m/uL Hgb 10.9 L (11.4-16.0) gm/dL Hct 33.7 L (34.0-46.0) % RDW 19.1 H (11.5-15.5) % Neutrophils # 7.8 H (1.3-7.7) k/uL Lymphocytes # 0.8 L (1.0-4.8) k/uL INR 1.2 H (<1.2) APTT 36.0 H (22.0-30.0) sec Chloride (98-107) mmol/L Carbon Dioxide (22-30) mmol/L BUN (7-17) mg/dL POC Glucose (mg/dL) (75-99) mg/dL Troponin I 0.307 H* (0.000-0.034) ng/mL HDL Cholesterol (40-60) mg/dL 06/10/18 06/10/18 06/11/18 Range/Units 14:21 22:00 03:49 RBC (3.80-5.40) m/uL Hgb (11.4-16.0) gm/dL Hct (34.0-46.0) % RDW (11.5-15.5) % Neutrophils # (1.3-7.7) k/uL Lymphocytes # (1.0-4.8) k/uL INR (<1.2) APTT 90.7 H 87.3 H (22.0-30.0) sec Chloride (98-107) mmol/L Carbon Dioxide (22-30) mmol/L BUN (7-17) mg/dL POC Glucose (mg/dL) (75-99) mg/dL Troponin I (0.000-0.034) ng/mL HDL Cholesterol 30 L (40-60) mg/dL 06/11/18 06/11/18 06/11/18 Range/Units 03:49 03:49 06:37 RBC 3.72 L (3.80-5.40) m/uL Hgb 10.4 L (11.4-16.0) gm/dL Hct 33.2 L (34.0-46.0) % RDW 18.7 H (11.5-15.5) % Neutrophils # (1.3-7.7) k/uL Lymphocytes # (1.0-4.8) k/uL INR (<1.2) APTT (22.0-30.0) sec Chloride 115 H (98-107) mmol/L Carbon Dioxide 18 L (22-30) mmol/L BUN 21 H (7-17) mg/dL POC Glucose (mg/dL) 71 L (75-99) mg/dL Troponin I (0.000-0.034) ng/mL HDL Cholesterol (40-60) mg/dL 06/11/18 Range/Units 10:58 RBC (3.80-5.40) m/uL Hgb (11.4-16.0) gm/dL Hct (34.0-46.0) % RDW (11.5-15.5) % Neutrophils # (1.3-7.7) k/uL Lymphocytes # (1.0-4.8) k/uL INR (<1.2) APTT 48.2 H (22.0-30.0) sec Chloride (98-107) mmol/L Carbon Dioxide (22-30) mmol/L BUN (7-17) mg/dL POC Glucose (mg/dL) (75-99) mg/dL Troponin I (0.000-0.034) ng/mL HDL Cholesterol (40-60) mg/dL Assessment and Plan Assessment: ASSESSMENT: 1. Status post abdominal surgery colostomy reversal. 2. Anemia secondary to acute blood loss. 3. History of Carcinoma of the colon status post right hemicolectomy recently. 4. Atrial fibrillation chronic. 5. Atrial fibrillation rapid ventricular rate. 6. Chronic kidney disease stage III. PLAN: Continue present medical regimen will discontinue patient's heparin start the patient on enalapril is starting this evening. Patient should be able to be started on clear liquids. Ventilatory support to the general surgeon make the decision. Advised patient to be ambulated..
--- NOTE | 2018-06-11 15:11 | P.PN ---
Subjective Progress Note Date: 06/11/18 This is a pleasant 82-year-old female past medical history significant for paroxysmal atrial fibrillation on long-term anticoagulation, colon cancer status post colectomy, hypertension, chronic kidney disease, dyslipidemia and prior CVA. She underwent ileostomy reversal with Dr. Antonio. We were asked to see her in consultation for atrial fibrillation with rapid ventricular response. Patient was seen and examined today, overall doing well, complaining of some mild abdominal discomfort, heart rate 108 this morning. Continues to be on IV heparin. IV heparin will be discontinued today patient will be resumed on Eliquis. We will continue with current medications, heart rate overall remaining stable. Objective - Vital Signs Vital signs: Vital Signs Temp 98.5 F 06/11/18 11:41 Pulse 113 H 06/11/18 11:41 Resp 20 06/11/18 11:41 BP 104/55 06/11/18 11:41 Pulse Ox 95 06/11/18 11:41 Intake & Output 06/10/18 06/11/18 06/11/18 18:59 06:59 18:59 Intake Total 100 1379.698 180 Balance 100 1379.698 180 Weight 62 kg Intake: IV 100 Lactated Ringers 1,000 ml 100 @ 100 mls/hr IV .Q10H [facility] Rx#:[id number] Intake, IV Titration 1179.698 Amount Heparin Sod,Pork in 0.45% 79.698 NaCl 25,000 unit In 0.45 % NaCl 1 250ml.bag @ 12 UNITS/KG/HR 6.8 mls/hr IV .Q24H [facility] Rx#:[id number] Lactated Ringers 1,000 ml 1100 @ 100 mls/hr IV .Q10H [facility] Rx#:[id number] Oral 200 180 Other: Voiding Method Diaper Diaper Diaper Incontinent Incontinent Incontinent # Voids 1 2 1 - Exam Blood pressure 99/61 heart rate 60 afebrile maintaining oxygen saturation on room air GENERAL: This is a 82-year-old female in no apparent distress at the time of my examination. HEENT: Head is atraumatic, normocephalic. Pupils are equal, round. Sclerae anicteric. Conjunctivae are clear. Mucous membranes of the mouth are moist. Neck is supple. There is no jugular venous distention. No carotid bruit is heard. LUNGS: Clear to auscultation no wheezes, rales or rhonchi. No chest wall tenderness is noted on palpation or with deep breathing. HEART: Regular rate and rhythm without murmurs, rubs or gallops. S1 and S2 heard. ABDOMEN: Soft, nontender. Bowel sounds are heard. No organomegaly noted. EXTREMITIES: No evidence of peripheral edema and no calf tenderness noted. VASCULAR: Radial and dorsalis pedis pulses palpated, no evidence of clubbing. NEUROLOGIC: Patient is awake, alert and oriented x - Labs CBC & Chem 7: 06/11/18 03:49 06/11/18 03:49 Labs: Abnormal Lab Results - Last 24 Hours (Table) 06/10/18 06/10/18 06/11/18 Range/Units 14:21 22:00 03:49 RBC (3.80-5.40) m/uL Hgb (11.4-16.0) gm/dL Hct (34.0-46.0) % RDW (11.5-15.5) % APTT 90.7 H 87.3 H (22.0-30.0) sec Chloride (98-107) mmol/L Carbon Dioxide (22-30) mmol/L BUN (7-17) mg/dL POC Glucose (mg/dL) (75-99) mg/dL Troponin I 0.307 H* (0.000-0.034) ng/mL 06/11/18 06/11/18 06/11/18 Range/Units 03:49 03:49 06:37 RBC 3.72 L (3.80-5.40) m/uL Hgb 10.4 L (11.4-16.0) gm/dL Hct 33.2 L (34.0-46.0) % RDW 18.7 H (11.5-15.5) % APTT (22.0-30.0) sec Chloride 115 H (98-107) mmol/L Carbon Dioxide 18 L (22-30) mmol/L BUN 21 H (7-17) mg/dL POC Glucose (mg/dL) 71 L (75-99) mg/dL Troponin I (0.000-0.034) ng/mL 06/11/18 Range/Units 10:58 RBC (3.80-5.40) m/uL Hgb (11.4-16.0) gm/dL Hct (34.0-46.0) % RDW (11.5-15.5) % APTT 48.2 H (22.0-30.0) sec Chloride (98-107) mmol/L Carbon Dioxide (22-30) mmol/L BUN (7-17) mg/dL POC Glucose (mg/dL) (75-99) mg/dL Troponin I (0.000-0.034) ng/mL Assessment and Plan Plan: ASSESSMENT and plan #1 Status post ileostomy reversal #2 Paroxysmal atrial fibrillation on long-term anticoagulation #3 Hypertension #4 History of colon carcinoma s/p colectomy #5 white Chronic kidney disease Plan From cardiology's perspective, the IV heparin will be discontinued today and patient will be resumed on Eliquis. We would recommend to continue current therapy. Heart rate overall is remaining stable. Discharged once cleared by surgery and primary. DNP note has been reviewed, I agree with a documented findings and plan of care. Patient was seen and examined.
--- NOTE | 2018-06-11 18:05 | P.PN ---
Subjective Progress Note Date: 06/11/18 Patient is feeling much better today. States she had flatus no BM. Denies pain. No complaints Objective - Vital Signs Vital signs: Vital Signs Temp 98.5 F 06/11/18 16:15 Pulse 110 H 06/11/18 16:15 Resp 20 06/11/18 16:15 BP 110/57 06/11/18 16:15 Pulse Ox 93 L 06/11/18 16:15 Intake & Output 06/10/18 06/11/18 06/11/18 18:59 06:59 18:59 Intake Total 100 5050.018 5114 Balance 100 5742.582 2106 Weight 62 kg Intake: IV 100 36 Heparin Sod,Pork in 0.45% 36 NaCl 25,000 unit In 0.45 % NaCl 1 250ml.bag @ 12 UNITS/KG/HR 6.8 mls/hr IV .Q24H [facility] Rx#:[id number] Lactated Ringers 1,000 ml 100 @ 100 mls/hr IV .Q10H [facility] Rx#:[id number] Intake, IV Titration 1179.698 800 Amount Heparin Sod,Pork in 0.45% 79.698 NaCl 25,000 unit In 0.45 % NaCl 1 250ml.bag @ 12 UNITS/KG/HR 6.8 mls/hr IV .Q24H [facility] Rx#:[id number] Lactated Ringers 1,000 ml 1100 800 @ 100 mls/hr IV .Q10H [facility] Rx#:[id number] Oral 200 360 Other: Voiding Method Diaper Diaper Diaper Incontinent Incontinent Incontinent # Voids 1 2 1 - Constitutional General appearance: Present: cooperative - Respiratory Details: nonlabored - Cardiovascular Rhythm: irregularly irregular - Gastrointestinal Gastrointestinal Comment(s): S/NT/ND, incision CDI - Labs CBC & Chem 7: 06/11/18 03:49 06/11/18 03:49 Labs: Abnormal Lab Results - Last 24 Hours (Table) 06/10/18 06/11/18 06/11/18 Range/Units 22:00 03:49 03:49 RBC 3.72 L (3.80-5.40) m/uL Hgb 10.4 L (11.4-16.0) gm/dL Hct 33.2 L (34.0-46.0) % RDW 18.7 H (11.5-15.5) % APTT 90.7 H 87.3 H (22.0-30.0) sec Chloride (98-107) mmol/L Carbon Dioxide (22-30) mmol/L BUN (7-17) mg/dL POC Glucose (mg/dL) (75-99) mg/dL 06/11/18 06/11/18 06/11/18 Range/Units 03:49 06:37 10:58 RBC (3.80-5.40) m/uL Hgb (11.4-16.0) gm/dL Hct (34.0-46.0) % RDW (11.5-15.5) % APTT 48.2 H (22.0-30.0) sec Chloride 115 H (98-107) mmol/L Carbon Dioxide 18 L (22-30) mmol/L BUN 21 H (7-17) mg/dL POC Glucose (mg/dL) 71 L (75-99) mg/dL Assessment and Plan Assessment: S/P ileostomy reversal Plan: Patient is doing well from surgical standpoint. Plan for clear liquid diet.
[2018-06-11] MEDS: HEPARIN SOD,PORK IN 0.45% NACL 25,000 UNIT in 0.45% NACL 1 250ML.BAG IV SCH (21:20)
[2018-06-11] MEDS: ATORVASTATIN 20 MG TAB PO SCH (21:22)
[2018-06-11] MEDS: APIXABAN 2.5 MG TABLET PO SCH (21:22)
[2018-06-12] MEDS: HYDROmorphone 0.5 MG/0.5 ML SYRINGE IVP PRN ×2 (02:23→20:12)
[2018-06-12] MEDS: LACTATED RINGERS 1,000 ML IV SCH ×2 (05:34→17:23)
[2018-06-12] MEDS: LEVOTHYROXINE 88 MCG TAB PO SCH (05:34)
[2018-06-12 07:15] LABS: Anisocytosis Slight; Basophils # (A) 0.1 k/uL (0-0.2); Basophils % (A) 1 %; Eosinophils # (A) 0.2 k/uL (0-0.7); Eosinophils % (A) 2 %; Hypochromasia Moderate; Lymphocytes % (A) 11 %; MCH 28.2 pg (25.0-35.0); MCHC 31.5 g/dL (31.0-37.0); MCV 89.5 fL (80.0-100.0); Mean Platelet Volume 7.2; Monocytes # (A) 0.5 k/uL (0-1.0); Monocytes % (A) 5 %; Neutrophils # (A) 7.7 k/uL (1.3-7.7); Neutrophils % (A) 81 %; Platelet Count 260 k/uL (150-450); RBC 3.91 m/uL (3.80-5.40); RDW 18.4 % (11.5-15.5); WBC 9.5 k/uL (3.8-10.6)
[2018-06-12 07:33] LABS: Calcium 8.5 mg/dL (8.4-10.2); Potassium 4.1 mmol/L (3.5-5.1)
[2018-06-12] MEDS: APIXABAN 2.5 MG TABLET PO SCH ×2 (08:23→20:11)
[2018-06-12] MEDS: METOPROLOL TARTRATE 50 MG TAB PO SCH ×2 (08:23→20:11)
[2018-06-12] MEDS: FAMOTIDINE 20 MG/2 ML VIAL IV SCH (08:23)
[2018-06-12] MEDS: ASPIRIN 81 MG PO SCH (08:23)
[2018-06-12] MEDS: LISINOPRIL 2.5 MG TAB PO SCH (08:23)
[2018-06-12] MEDS: METOCLOPRAMIDE 5 MG/ML 2 ML VIAL IVP SCH ×3 (08:23→23:13)
--- NOTE | 2018-06-12 13:05 | P.PN ---
Subjective Progress Note Date: 06/12/18 Principal diagnosis: Status post abdominal surgery/atrial fibrillation chronic This 82-year-old female was admitted to the hospital and undergone reversal of her colostomy. She had a malignancy of the right colon requiring hemicolectomy previously. The patient has a history of chronic atrial fibrillation. Postoperatively continued in A. fib. She is feeling much better today she did have bowel movements however she is not eating as she had declined breakfast this morning and. There was a clear liquid. The patient has no nausea vomiting abdominal pain is controlled. Denies shortness of breath. 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 Advised to the patient was started having some nutritious protein puddings. REVIEW OF SYSTEMS: Neuro: Denies any headaches dizziness. Psych: Denies anxiety depression feels oriented. Cardiac: Denies chest pain and angina palpitations. Respiratory: Denies shortness of breath cough. GI: Denies any nausea vomiting does have abdominal pain which is much improved no diarrhea or constipation. Bowel movements no blood : Denies dysuria hematuria. Extremities: Denies pain. No edema. Skin: Intact. Constitutional: No fever, chills. Objective - Vital Signs Vital signs: Vital Signs Temp 97.5 F L 06/12/18 11:56 Pulse 81 06/12/18 11:56 Resp 20 06/12/18 11:56 BP 111/62 06/12/18 11:56 Pulse Ox 95 06/12/18 11:56 Intake & Output 06/11/18 06/12/18 06/12/18 18:59 06:59 18:59 Intake Total 1196 200 Balance 1196 200 Weight 62 kg Intake: IV 36 Heparin Sod,Pork in 0.45% 36 NaCl 25,000 unit In 0.45 % NaCl 1 250ml.bag @ 12 UNITS/KG/HR 6.8 mls/hr IV .Q24H [facility] Rx#:[id number] Intake, IV Titration 800 Amount Lactated Ringers 1,000 ml 800 @ 100 mls/hr IV .Q10H [facility] Rx#:[id number] Oral 360 200 Other: Voiding Method Diaper Diaper Diaper Incontinent # Voids 1 1 # Bowel Movements 2 1PHYSICAL EXAMINATION: Cooperative, at present in no acute distress. HEENT: Neck supple. No JVD. Chest: Clear to auscultation Cardiac: Normal S1-S2 with no gallops irregularly irregular rhythm systolic murmur 2/6 left sternal border . Abdomen: Mildly tender with guarding bowel sounds present. Extremities: No edema no tenderness Neurologically: Awake alert oriented with well coordinated movements left-sided right-sided movements are present with some increased on his slowness. This is chronic - Labs CBC & Chem 7: 06/12/18 06:50 06/12/18 06:50 Labs: Abnormal Lab Results - Last 24 Hours (Table) 06/12/18 06/12/18 Range/Units 06:50 06:50 Hgb 11.0 L (11.4-16.0) gm/dL RDW 18.4 H (11.5-15.5) % Chloride 114 H (98-107) mmol/L Carbon Dioxide 20 L (22-30) mmol/L Assessment and Plan Assessment: ASSESSMENT: 1. Status post abdominal surgery colostomy reversal. 2. Anemia secondary to acute blood loss. 3. History of Carcinoma of the colon status post right hemicolectomy recently. 4. Atrial fibrillation chronic. 5. Atrial fibrillation rapid ventricular rate. 6. Chronic kidney disease stage III. Plan: Continue present medical regimen. Patient encouraged to increase her intake especially the protein puddings. Encouraged again to be out of bed in a chair. Patient's status is improved and stable. Potential discharge in the next 48 hours.
--- NOTE | 2018-06-12 13:19 | P.PN ---
Subjective Progress Note Date: 06/12/18 This is a pleasant 82-year-old female past medical history significant for paroxysmal atrial fibrillation on long-term anticoagulation, colon cancer status post colectomy, hypertension, chronic kidney disease, dyslipidemia and prior CVA. She underwent ileostomy reversal with Dr. Antonio. Initially asked to see the patient in consultation for atrial fibrillation with rapid ventricular response. EKG done yesterday showed significant T wave inversion which was new compared to previous EKGs. Repeat EKG this morning continues to show T-wave inversions however this has improved. IV heparin was discontinued yesterday and the patient was resumed on Eliquis. Overall she's feeling fairly well, continues to have decreased appetite and abdominal tenderness postoperatively. Vital signs are stable and her rate is controlled this time. She is maintaining sinus rhythm. Objective - Vital Signs Vital signs: Vital Signs Temp 97.5 F L 06/12/18 11:56 Pulse 81 06/12/18 11:56 Resp 20 06/12/18 11:56 BP 111/62 06/12/18 11:56 Pulse Ox 95 06/12/18 11:56 Intake & Output 06/11/18 06/12/18 06/12/18 18:59 06:59 18:59 Intake Total 1196 200 Balance 1196 200 Weight 62 kg Intake: IV 36 Heparin Sod,Pork in 0.45% 36 NaCl 25,000 unit In 0.45 % NaCl 1 250ml.bag @ 12 UNITS/KG/HR 6.8 mls/hr IV .Q24H [facility] Rx#:[id number] Intake, IV Titration 800 Amount Lactated Ringers 1,000 ml 800 @ 100 mls/hr IV .Q10H [facility] Rx#:[id number] Oral 360 200 Other: Voiding Method Diaper Diaper Diaper Incontinent # Voids 1 1 # Bowel Movements 2 - Exam PHYSICAL EXAMINATION: HEENT: Head is atraumatic, normocephalic. Pupils equal, round. Neck is supple. There is no elevated jugular venous pressure. HEART EXAMINATION: Heart sounds regular, S1 and S2 normal. No murmur or gallop heard. CHEST EXAMINATION: Lungs are clear to auscultation and precussion. No chest wall tenderness is noted on palpation or with deep breathing. ABDOMEN: Soft, nontender. Bowel sounds are heard. No organomegaly noted. EXTREMITIES: 2+ peripheral pulses with no evidence of peripheral edema and no calf tenderness noted. NEUROLOGIC patient is awake, alert and oriented x3. . - Labs CBC & Chem 7: 06/12/18 06:50 06/12/18 06:50 Labs: Abnormal Lab Results - Last 24 Hours (Table) 06/12/18 06/12/18 Range/Units 06:50 06:50 Hgb 11.0 L (11.4-16.0) gm/dL RDW 18.4 H (11.5-15.5) % Chloride 114 H (98-107) mmol/L Carbon Dioxide 20 L (22-30) mmol/L Assessment and Plan Assessment: #1 Status post ileostomy reversal #2 Paroxysmal atrial fibrillation on long-term anticoagulation #3 Hypertension #4 History of colon carcinoma s/p colectomy #5 Chronic kidney disease Plan: From cardiology's perspective, medications were reviewed and we will continue the same. Continue to follow the patient during this admission and provide further recommendations accordingly. Patient likely to be discharged home once cleared by surgery and primary. RISK PROFESSIONAL note has been reviewed, I agree with a documented findings and plan of care. Patient was seen and examined.
[2018-06-12] MEDS: ATORVASTATIN 20 MG TAB PO SCH (20:11)
--- NOTE | 2018-06-12 20:56 | P.PN ---
Subjective Progress Note Date: 06/12/18 Patient is feeling much better today. States she had flatus no BM. Denies pain. No complaints Objective - Vital Signs Vital signs: Vital Signs Temp 98 F 06/12/18 15:41 Pulse 81 06/12/18 15:41 Resp 20 06/12/18 15:41 BP 128/68 06/12/18 15:41 Pulse Ox 95 06/12/18 15:41 Intake & Output 06/12/18 06/12/18 06/13/18 06:59 18:59 06:59 Intake Total 1000 Balance 1000 Weight 62 kg Intake: IV 800 Lactated Ringers 1,000 ml 800 @ 100 mls/hr IV .Q10H [facility] Rx#:[id number] Oral 200 Other: Voiding Method Diaper Diaper # Voids 1 # Bowel Movements 2 1 - Constitutional General appearance: Present: cooperative - Respiratory Details: nonlabored - Cardiovascular Rhythm: regular - Gastrointestinal Gastrointestinal Comment(s): soft, nontender, incision CDI packing pulled. No erythemia - Labs CBC & Chem 7: 06/12/18 06:50 06/12/18 06:50 Labs: Abnormal Lab Results - Last 24 Hours (Table) 06/12/18 06/12/18 Range/Units 06:50 06:50 Hgb 11.0 L (11.4-16.0) gm/dL RDW 18.4 H (11.5-15.5) % Chloride 114 H (98-107) mmol/L Carbon Dioxide 20 L (22-30) mmol/L Assessment and Plan Assessment: S/P ileostomy reversal Plan: Patient is doing well from surgical standpoint. toelrating clears, cont on clears until further bowel function returns. Packing pulled.
[2018-06-13] MEDS: HYDROmorphone 0.5 MG/0.5 ML SYRINGE IVP PRN ×3 (02:42→23:09)
[2018-06-13] MEDS: LACTATED RINGERS 1,000 ML IV SCH ×3 (02:42→19:50)
[2018-06-13] MEDS: LEVOTHYROXINE 88 MCG TAB PO SCH (05:18)
[2018-06-13 06:09] LABS: Anisocytosis Slight; Basophils % (A) 0 %; Eosinophils # (A) 0.2 k/uL (0-0.7); Eosinophils % (A) 3 %; Hypochromasia Slight; Lymphocytes % (A) 13 %; MCH 28.2 pg (25.0-35.0); MCHC 32.1 g/dL (31.0-37.0); MCV 87.9 fL (80.0-100.0); Mean Platelet Volume 7.5; Microcytosis Slight; Monocytes # (A) 0.4 k/uL (0-1.0); Monocytes % (A) 5 %; Neutrophils % (A) 78 %; Platelet Count 257 k/uL (150-450); RBC 3.53 m/uL (3.80-5.40); RDW 18.1 % (11.5-15.5); WBC 7.8 k/uL (3.8-10.6)
[2018-06-13 06:21] LABS: Calcium 8.2 mg/dL (8.4-10.2); Potassium 3.6 mmol/L (3.5-5.1)
[2018-06-13] MEDS: FAMOTIDINE 20 MG/2 ML VIAL IV SCH (09:36)
[2018-06-13] MEDS: METOCLOPRAMIDE 5 MG/ML 2 ML VIAL IVP SCH ×3 (09:36→23:09)
[2018-06-13] MEDS: APIXABAN 2.5 MG TABLET PO SCH ×2 (09:37→19:48)
[2018-06-13] MEDS: ASPIRIN 81 MG PO SCH (09:37)
[2018-06-13] MEDS: METOPROLOL TARTRATE 50 MG TAB PO SCH ×2 (09:37→19:48)
--- NOTE | 2018-06-13 10:57 | P.PN ---
Subjective Progress Note Date: 06/13/18 Patient seen and examined at bedside. Working well with physical therapy during exam. States she is having bowel movements. Denies nausea vomiting. Tolerating clear liquid diet Objective - Vital Signs Vital signs: Vital Signs Temp 98.0 F 06/13/18 03:42 Pulse 87 06/13/18 03:42 Resp 17 06/13/18 03:42 BP 135/61 06/13/18 03:42 Pulse Ox 96 06/13/18 03:42 Intake & Output 06/12/18 06/13/18 06/13/18 18:59 06:59 18:59 Intake Total 1000 200 Balance 1000 200 Weight 65.5 kg Intake: IV 800 Lactated Ringers 1,000 ml 800 @ 100 mls/hr IV .Q10H [facility] Rx#:[id number] Oral 200 200 Other: Voiding Method Diaper Diaper # Voids 1 # Bowel Movements 1 - Constitutional General appearance: Present: cooperative, no acute distress - Respiratory Details: No difficulty with respiration - Gastrointestinal Gastrointestinal Comment(s): Soft, appropriate tenderness, nondistended, no rebound, no guarding, incision site is healing well with minimal serous drainage - Psychiatric Psychiatric: Present: appropriate affect - Labs CBC & Chem 7: 06/13/18 05:46 06/13/18 05:46 Labs: Abnormal Lab Results - Last 24 Hours (Table) 06/13/18 06/13/18 Range/Units 05:46 05:46 RBC 3.53 L (3.80-5.40) m/uL Hgb 10.0 L (11.4-16.0) gm/dL Hct 31.0 L (34.0-46.0) % RDW 18.1 H (11.5-15.5) % Sodium 136 L (137-145) mmol/L Chloride 112 H (98-107) mmol/L Calcium 8.2 L (8.4-10.2) mg/dL Assessment and Plan Plan: Postoperative day #4 from ileostomy reversal - Patient did have bowel function, advance to soft diet - Continue local wound care - Pain control - Continue to increase activity, physical therapy is working with patient - Cardiology recommendations - Progressing slowly, discharge planning
[2018-06-13] MEDS: LISINOPRIL 2.5 MG TAB PO SCH (12:04)
--- NOTE | 2018-06-13 12:23 | P.PN ---
Subjective Progress Note Date: 06/13/18 This is a pleasant 82-year-old female past medical history significant for paroxysmal atrial fibrillation on long-term anticoagulation, colon cancer status post colectomy, hypertension, chronic kidney disease, dyslipidemia and prior CVA. She underwent ileostomy reversal with Dr. Antonio. We were asked to see her in consultation for atrial fibrillation with rapid ventricular response. Patient was seen and examined today, overall doing well, complaining of some mild abdominal discomfort, heart rate 108 this morning. Continues to be on IV heparin. IV heparin will be discontinued today patient will be resumed on Eliquis. We will continue with current medications, heart rate overall remaining stable. 06/13/2018 Patient was seen and examined this morning, hemodynamically stable, blood pressure 118/60 with a heart rate in the 70s to 80s, 94% on room air. Overall progressing well. Up with physical therapy today. Having bowel movements. Hemoglobin today 10.0, sodium 136, potassium 3.6, BUN 14 and creatinine 0.8. Objective - Vital Signs Vital signs: Vital Signs Temp 97.6 F 06/13/18 11:49 Pulse 85 06/13/18 11:49 Resp 20 06/13/18 11:49 BP 118/67 06/13/18 11:49 Pulse Ox 94 L 06/13/18 11:49 Intake & Output 06/12/18 06/13/18 06/13/18 18:59 06:59 18:59 Intake Total 1000 200 800 Balance 1000 200 800 Weight 65.5 kg Intake: IV 800 800 Lactated Ringers 1,000 ml 800 800 @ 100 mls/hr IV .Q10H [facility] Rx#:[id number] Oral 200 200 Other: Voiding Method Diaper Diaper Diaper # Voids 1 # Bowel Movements 1 - Exam Blood pressure 99/61 heart rate 60 afebrile maintaining oxygen saturation on room air GENERAL: This is a 82-year-old female in no apparent distress at the time of my examination. HEENT: Head is atraumatic, normocephalic. Pupils are equal, round. Sclerae anicteric. Conjunctivae are clear. Mucous membranes of the mouth are moist. Neck is supple. There is no jugular venous distention. No carotid bruit is heard. LUNGS: Clear to auscultation no wheezes, rales or rhonchi. No chest wall tenderness is noted on palpation or with deep breathing. HEART: Regular rate and rhythm without murmurs, rubs or gallops. S1 and S2 heard. ABDOMEN: Soft, nontender. Bowel sounds are heard. No organomegaly noted. EXTREMITIES: No evidence of peripheral edema and no calf tenderness noted. VASCULAR: Radial and dorsalis pedis pulses palpated, no evidence of clubbing. NEUROLOGIC: Patient is awake, alert and oriented x - Labs CBC & Chem 7: 06/13/18 05:46 06/13/18 05:46 Labs: Abnormal Lab Results - Last 24 Hours (Table) 06/13/18 06/13/18 Range/Units 05:46 05:46 RBC 3.53 L (3.80-5.40) m/uL Hgb 10.0 L (11.4-16.0) gm/dL Hct 31.0 L (34.0-46.0) % RDW 18.1 H (11.5-15.5) % Sodium 136 L (137-145) mmol/L Chloride 112 H (98-107) mmol/L Calcium 8.2 L (8.4-10.2) mg/dL Assessment and Plan Plan: ASSESSMENT and plan #1 Status post ileostomy reversal #2 Paroxysmal atrial fibrillation on long-term anticoagulation #3 Hypertension #4 History of colon carcinoma s/p colectomy #5 white Chronic kidney disease Plan From cardiology's perspective, we will recommend to continue the patient on her current anticoagulation along with her other medications. DNP note has been reviewed, I agree with a documented findings and plan of care. Patient was seen and examined.
[2018-06-13] MEDS: ATORVASTATIN 20 MG TAB PO SCH (19:48)
--- NOTE | 2018-06-13 23:08 | PN ---
PROGRESS NOTE DATE OF SERVICE: 06/13/2018 HISTORY OF PRESENT ILLNESS: This is an 82-year-old white female who is a patient of Dr. Pace and she had reversal if ileostomy. She was seen by Dr. Pritchard who was covering me this week end in consultation for medical management. The patient has a history of CA of the colon and had a resection and following that, she had an ileostomy and this was patient had a reversal of the ileostomy by Dr. Antonio. The patient has multiple chronic medical problems. She has history of chronic atrial fibrillation and she was being followed by the wash oil pump operator in the past. She also has chronic congestive heart failure. She is recovering from surgery without any significant complications. She has been seen by a wash oil pump operator in consultation. CURRENT MEDICATIONS: Include Eliquis, aspirin, Lipitor, Pepcid, Dilaudid, Synthroid, lisinopril, Reglan p.r.n., and Lopressor and Zofran p.r.n. The patient surgically recovering without any significant complications and the patient's bowels started moving and her vital signs are stable. She is still in atrial fibrillation with controlled ventricular rate. She is still extremely weak in the knees for moving around. donor services manager making discharge plan. The patient apparently wants to go home when discharged and she will be going home with her sister. Overall, she seems to be extremely weak and probably I advised to go to a rehab unit for a few more days until she is getting strong enough to go back home when she was discharged. She is discharged. Process Improvement Manager recommended that she continue with a current anticoagulation with Eliquis and aspirin. The patient is alert and oriented and seems to be fairly comfortable. Vital signs are stable. We will continue current medications and also will continue physical therapy to improve her muscle strength and ambulate and ambulation. Prognosis is guarded. The diagnosis, prognosis and therapeutic plans were discussed in detail with the patient today. MMODL / IJN: [id number] /
[2018-06-14] MEDS: HYDROmorphone 0.5 MG/0.5 ML SYRINGE IVP PRN (03:52)
[2018-06-14] MEDS: LEVOTHYROXINE 88 MCG TAB PO SCH (06:51)
[2018-06-14 07:02] LABS: Anion Gap 0 mmol/L; Blood Urea Nitrogen 10 mg/dL (7-17); Calcium 7.8 mg/dL (8.4-10.2); Carbon Dioxide 23 mmol/L (22-30); Chloride 112 mmol/L (98-107); Glucose 84 mg/dL (74-99); Potassium 3.4 mmol/L (3.5-5.1); Sodium 135 mmol/L (137-145)
[2018-06-14 07:25] LABS: Anisocytosis Slight; Basophils % (A) 0 %; Eosinophils # (A) 0.4 k/uL (0-0.7); Eosinophils % (A) 7 %; HCT 29.1 % (34.0-46.0); HGB 9.2 gm/dL (11.4-16.0); Hypochromasia Slight; Lymphocytes % (A) 18 %; MCH 28.5 pg (25.0-35.0); MCHC 31.7 g/dL (31.0-37.0); MCV 89.8 fL (80.0-100.0); Mean Platelet Volume 7.7; Monocytes # (A) 0.4 k/uL (0-1.0); Monocytes % (A) 6 %; Neutrophils # (A) 3.9 k/uL (1.3-7.7); Neutrophils % (A) 67 %; Platelet Count 231 k/uL (150-450); RBC 3.24 m/uL (3.80-5.40); RDW 17.8 % (11.5-15.5); WBC 5.8 k/uL (3.8-10.6)
[2018-06-14] MEDS ORDERED: FAMOTIDINE 20 MG TAB PO SCH ×2 (09:00→21:00)
[2018-06-14] MEDS: METOPROLOL TARTRATE 50 MG TAB PO SCH (09:03)
[2018-06-14] MEDS: APIXABAN 2.5 MG TABLET PO SCH (09:03)
[2018-06-14] MEDS: ASPIRIN 81 MG PO SCH (09:03)
[2018-06-14] MEDS: METOCLOPRAMIDE 5 MG/ML 2 ML VIAL IVP SCH ×2 (09:03→16:10)
--- NOTE | 2018-06-14 10:33 | P.DS ---
Providers Date of admission: 06/09/18 09:42 Attending physician: Марина Antonio DO Consults: 06/09/18 12:55 Consult Physician Routine Consulting Provider: Rolando Angel Reason/Comments: Pt known to you. ileostomy reversal Do you want consulting provider notified?: Yes 06/09/18 18:05 Consult Physician Routine Consulting Provider: Leigh Ann Kate Consult Reason/Comments: Hx of AFib Do you want consulting provider notified?: Yes Primary care physician: Rolando Angel [facility] Course: 82-year-old female presented for an elective reversal of ileostomy. During her inpatient stay, her pain began to improve and her diet was advanced with advancing of bowel function. She has had multiple bowel movements and is continuing to pass flatus. At this point, she has been seen by the physical therapy team and the patient is noted to require additional physical therapy. Recommendation has been made by internal medicine and rehab team for additional therapy due to patient's weakness. Plan is for discharge to rehab nursing facility. Procedures: Reversal of ileostomy Patient Condition at Discharge: Fair Plan - Discharge Summary Discharge Rx Participant: No New Discharge Prescriptions: New Aspirin 81 mg PO DAILY chew Continue Ergocalciferol (Vitamin D2) [Vitamin D2] 50,000 unit PO Q30D Apixaban [Eliquis] 2.5 mg PO BID Atorvastatin [Lipitor] 20 mg PO HS tab Ferrous Sulfate [Feosol] 325 mg PO DAILY #90 tab Acetaminophen Tab [Tylenol] 650 mg PO Q4HR PRN tab PRN Reason: Fever And/Or Mild Pain Levothyroxine Sodium [Synthroid] 88 mcg PO DAILY@0630 tab Metoprolol Tartrate [Lopressor] 50 mg PO BID tab Mylanta Suspension 200-200-20 Mg/5l 15 ml PO TID Discontinued Pantoprazole [Protonix] 40 mg PO DAILY tablet. Loperamide [Imodium] 2 mg PO QID cap Na Phos,M-B/Na Phos,Di-Ba [Fleet Adult] 1 dose RECTAL DAILY PRN PRN Reason: Constipation Bisacodyl [Dulcolax] 10 mg RECTAL DAILY PRN PRN Reason: Constipation Magnesium Hydroxide [Milk of Magnesia Concentrate] 30 ml PO DAILY PRN PRN Reason: Constipation Discharge Medication List Ergocalciferol (Vitamin D2) [Vitamin D2] 50,000 unit PO Q30D 05/12/17 [History] Apixaban [Eliquis] 2.5 mg PO BID 12/17/17 [History] Atorvastatin [Lipitor] 20 mg PO HS tab 12/28/17 [Rx] Ferrous Sulfate [Feosol] 325 mg PO DAILY #90 tab 03/24/18 [Rx] Acetaminophen Tab [Tylenol] 650 mg PO Q4HR PRN tab 03/30/18 [Rx] Levothyroxine Sodium [Synthroid] 88 mcg PO DAILY@0630 tab 05/18/18 [Rx] Metoprolol Tartrate [Lopressor] 50 mg PO BID tab 05/18/18 [Rx] Mylanta Suspension 200-200-20 Mg/5l 15 ml PO TID 06/06/18 [History] Aspirin 81 mg PO DAILY chew 06/14/18 [Rx] Follow up Appointment(s)/Referral(s): Rolando Angel MD [Primary Care Provider] - 1 Week Марина Antonio DO [Doctor of Osteopathic Medicine] - 10 Days Activity/Diet/Wound Care/Special Instructions: Okay for a regular diet Continue to increase activity daily Keep the wound covered, expected drainage from the wound site for the next 5-7 days Okay to shower Discharge Disposition: TRANSFER TO SNF/ECF
[2018-06-14 11:32] VITALS: RESP 18
[2018-06-14] MEDS: LISINOPRIL 2.5 MG TAB PO SCH (12:21)
[2018-06-14 15:57] VITALS: BP 125/66; PULSE 94; TEMP 97.9
--- NOTE | 2018-06-14 16:02 | P.PN ---
Subjective Progress Note Date: 06/14/18 This is a pleasant 82-year-old female past medical history significant for paroxysmal atrial fibrillation on long-term anticoagulation, colon cancer status post colectomy, hypertension, chronic kidney disease, dyslipidemia and prior CVA. She underwent ileostomy reversal with Dr. Antonio. We were asked to see her in consultation for atrial fibrillation with rapid ventricular response. Patient was seen and examined today, overall doing well, complaining of some mild abdominal discomfort, heart rate 108 this morning. Continues to be on IV heparin. IV heparin will be discontinued today patient will be resumed on Eliquis. We will continue with current medications, heart rate overall remaining stable. 06/13/2018 Patient was seen and examined this morning, hemodynamically stable, blood pressure 118/60 with a heart rate in the 70s to 80s, 94% on room air. Overall progressing well. Up with physical therapy today. Having bowel movements. Hemoglobin today 10.0, sodium 136, potassium 3.6, BUN 14 and creatinine 0.8. 06/14/2018 Patient was seen and examined this morning, hemodynamically stable. Blood pressure 124/60 with a heart rate in the 70s, 93% on room air. Anticipating discharge today. Objective - Vital Signs Vital signs: Vital Signs Temp 97.9 F 06/14/18 15:00 Pulse 94 06/14/18 15:00 Resp 18 06/14/18 15:00 BP 125/66 06/14/18 15:00 Pulse Ox 93 L 06/14/18 15:00 Intake & Output 06/13/18 06/14/18 06/14/18 18:59 06:59 18:59 Intake Total 1160 520 Output Total 1 Balance 1160 -1 520 Weight 66.5 kg Intake: IV 800 400 Lactated Ringers 1,000 ml 800 400 @ 50 mls/hr IV .Q20H [facility] Rx#:[id number] Oral 360 120 Output: Stool 1 Other: Voiding Method Diaper Diaper Diaper # Voids 1 2 # Bowel Movements 1 - Exam Blood pressure 99/61 heart rate 60 afebrile maintaining oxygen saturation on room air GENERAL: This is a 82-year-old female in no apparent distress at the time of my examination. HEENT: Head is atraumatic, normocephalic. Pupils are equal, round. Sclerae anicteric. Conjunctivae are clear. Mucous membranes of the mouth are moist. Neck is supple. There is no jugular venous distention. No carotid bruit is heard. LUNGS: Clear to auscultation no wheezes, rales or rhonchi. No chest wall tenderness is noted on palpation or with deep breathing. HEART: Regular rate and rhythm without murmurs, rubs or gallops. S1 and S2 heard. ABDOMEN: Soft, nontender. Bowel sounds are heard. No organomegaly noted. EXTREMITIES: No evidence of peripheral edema and no calf tenderness noted. VASCULAR: Radial and dorsalis pedis pulses palpated, no evidence of clubbing. NEUROLOGIC: Patient is awake, alert and oriented x - Labs CBC & Chem 7: 06/14/18 06:08 06/14/18 06:08 Labs: Abnormal Lab Results - Last 24 Hours (Table) 06/14/18 06/14/18 Range/Units 06:08 06:08 RBC 3.24 L (3.80-5.40) m/uL Hgb 9.2 L (11.4-16.0) gm/dL Hct 29.1 L (34.0-46.0) % RDW 17.8 H (11.5-15.5) % Sodium 135 L (137-145) mmol/L Potassium 3.4 L (3.5-5.1) mmol/L Chloride 112 H (98-107) mmol/L Calcium 7.8 L (8.4-10.2) mg/dL Assessment and Plan Plan: ASSESSMENT and plan #1 Status post ileostomy reversal #2 Paroxysmal atrial fibrillation on long-term anticoagulation #3 Hypertension #4 History of colon carcinoma s/p colectomy #5 white Chronic kidney disease Plan From cardiology's perspective, we will recommend to continue the patient on her current anticoagulation along with her other medications. DNP note has been reviewed, I agree with a documented findings and plan of care. Patient was seen and examined.
--- NOTE | 2018-06-14 16:08 | CDI ---
Documentation Clarification Form Date: 06/14/2018 3:27:37 PM From: Karen Ruby RN, CCDS Admit Date: 06/09/2018 9:42:00 AM Patient Name: Radha Del Angel Visit Number: [id number] Discharge Date: ATTENTION: The Clinical Documentation Specialists (CDI) and [facility] Coding Staff appreciate your assistance in clarifying documentation. Please respond to the clarification below the line at the bottom and electronically sign. The CDI & [facility] Coding staff will review the response and follow-up if needed. Please note: Queries are made part of the Legal Health Record. If you have any questions, please contact the author of this message via ITS. Dr. Марина Antonio Anemia, secondary to acute blood loss is documented in the progress note on -06/12/18. Patients Admitting Diagnosis: History of Colon cancer Post-Operative Diagnosis: History of Colon cancer Procedure performed: Closure of ileostomy History/Risk Factors: CVA, Atrial fibrillation, Essential Hypertension, Clinical Indicators: 82 year-old that initially under went a right colectomy secondary to colorectal cancer, she had significant anemia then. Labs: 06/10/18 HGB 10.8, HCT 34.3 06/11/18 HGB 10.4, HCT 33.2 06/12/18 HGB 11.0, 35.0 06/14/18 HGB 9.2, HCT 29.1 Treatment: Monitor labs In order to accurately reflect this patients severity of illness, please clarify, the acute blood loss anemia diagnosis is: An expected post-procedural or post-surgical condition (Last Revision: August 2017) MTDD
[2018-06-14] MEDS: LACTATED RINGERS 1,000 ML IV SCH (16:10)
--- NOTE | 2018-06-14 16:31 | CDI ---
Documentation Clarification Form Date: 06/14/2018 4:16:19 PM From: Karen Ruby RN, CCDS Admit Date: 06/09/2018 9:42:00 AM Patient Name: Radha Del Angel Visit Number: [id number] Discharge Date: ATTENTION: The Clinical Documentation Specialists (CDI) and [facility] Coding Staff appreciate your assistance in clarifying documentation. Please respond to the clarification below the line at the bottom and electronically sign. The CDI & [facility] Coding staff will review the response and follow-up if needed. Please note: Queries are made part of the Legal Health Record. If you have any questions, please contact the author of this message via ITS. Dr. Rolando Angel Chronic congestive heart failure is documented in your progress note on . History/Risk Factors: Chronic Atrial fibrillation, ,Colon Cancer, Chronic CHF, CVA, Clinical Indicators: 82-year-old female with history of present illness of chronic congestive heart failure.. She presented for an elective reversal of ileostomy. She denies shortness of breath. Extremities reveal no edema, no tenderness VS/Pulse OX: 118/67 85 20 97.6 94 % RA Echocardiogram Results: Overall left ventricular systolic function is mild- moderately impaired with an EF between 40-45 % Treatment: Lopressor PO Monitor O2 Sat's In your professional opinion, can you please further clarify type of Chronic CHF if known? Chronic Systolic heart failure Chronic Diastolic heart failure Chronic Systolic and Diastolic heart failure Unable to Determine Other, please specify (Last Revision: August 2017) MTDD
--- NOTE | 2018-06-15 00:18 | PN ---
PROGRESS NOTE DATE OF SERVICE: 06/14/2018. HISTORY: This is an 82-year-old white female who has multiple chronic medical problems. She has a history of colon cancer and she had a colectomy and an ileostomy and Dr. Antonio did a reversal of the ileostomy. Postoperatively the patient was admitted to the hospital. The patient has a history of chronic atrial fibrillation and chronic congestive heart failure. The patient also has history of hypertensive cardiovascular disease, chronic renal disease and also has history of TIA and CVA in the past. The patient postoperatively was placed back on her previous home medications. The patient has been on Eliquis and aspirin. Patient was seen by [facility] in consultation. They recommended to continue on with Eliquis and aspirin. She was also placed back on her previous home medications. Postoperatively the patient recovered without any complications. Her bowels started working and the patient was also getting physical therapy. As per the surgical point of view, the patient was ready for discharge. As the patient was extremely weak, patient is being discharged to [facility] rehab unit. Dr. Antonio is planning to discharge her today. The patient will be transferred to [facility] rehab unit. When the patient is able to ambulate by herself and and she has achieved maximum benefit from the physical therapy, she will be discharged to home with her sister. Detailed discharge instructions were given. For her medical problems, she will be followed by me in the assisted. TASIA / MOSES: [id number] /
== END 2018-06-14 16:55 | DRG 330 ==
LOC: 2ORMAIN 09:42 → 4SSUR 12:50 → 3SCARD 06-10 14:56
PROVIDERS: ADMIT Surgery; ATTEND Surgery
PROC: 0DBB0ZZ Excision of Ileum, Open Approach (ICD-10-PCS; principal; 2018-06-09 11:00)
DX: Z43.2 Encounter for attention to ileostomy (principal); D62 Acute posthemorrhagic anemia; I69.951 Hemiplegia and hemiparesis following unspecified cerebrovascular disease affecting right dominant side; I13.0 Hypertensive heart and chronic kidney disease with heart failure and stage 1 through stage 4 chronic kidney disease, or unspecified chronic kidney disease; I48.0 Paroxysmal atrial fibrillation; I50.9 Heart failure, unspecified; N18.3 Chronic kidney disease, stage 3 (moderate); E89.0 Postprocedural hypothyroidism; K21.9 Gastro-esophageal reflux disease without esophagitis; E78.5 Hyperlipidemia, unspecified; M19.90 Unspecified osteoarthritis, unspecified site; E55.9 Vitamin D deficiency, unspecified; R32 Unspecified urinary incontinence; R40.2364 Coma scale, best motor response, obeys commands, 24 hours or more after hospital admission; R40.2144 Coma scale, eyes open, spontaneous, 24 hours or more after hospital admission; R40.2244 Coma scale, best verbal response, confused conversation, 24 hours or more after hospital admission; Z79.01 Long term (current) use of anticoagulants; Z79.890 Hormone replacement therapy; Z79.899 Other long term (current) drug therapy; Z85.038 Personal history of other malignant neoplasm of large intestine; Z90.49 Acquired absence of other specified parts of digestive tract; Z87.19 Personal history of other diseases of the digestive system; Z86.19 Personal history of other infectious and parasitic diseases; Z87.440 Personal history of urinary (tract) infections; Z98.890 Other specified postprocedural states; Z74.01 Bed confinement status; Z88.1 Allergy status to other antibiotic agents; Z88.5 Allergy status to narcotic agent; Z80.3 Family history of malignant neoplasm of breast; Z80.0 Family history of malignant neoplasm of digestive organs; Z83.3 Family history of diabetes mellitus; Z82.0 Family history of epilepsy and other diseases of the nervous system
CPT/HCPCS: 36415; 80048; 80061; 84484; 85025; 85610; 85730; 86850; 86900; 86901; 88304; 93005; 93308; 94760

== ENCOUNTER 2018-08-04 10:06 | Observation (INO) | payer MEDICARE ==
[2018-08-04] MEDS ORDERED: SODIUM CHLORIDE 0.9% 500 ML 500 ML IV STA (10:23)
--- NOTE | 2018-08-04 10:46 | ED ---
GI Bleed HPI - General Chief complaint: GI Bleed Stated complaint: rectal bleeding Time Seen by Provider: 08/04/18 10:15 Source: patient, RN notes reviewed Mode of arrival: ambulatory Limitations: no limitations - History of Present Illness Initial comments: 83-year-old female presents emergency Department chief complaint rectal bleeding. Patient states that she had a bowel movement which was normal consistency denies hard stools or diarrhea and states that she started having blood. Patient states the blood was not stopping. Patient states that she has no known hemorrhoids. Patient denies any rectal pain. Patient states she does take Eliquis for A. fib and was instructed to be seen in emergency department. Patient states that she also had a colostomy reversal approximately two month ago by Dr. Antonio. Patient denies any abdominal pain nausea, vomiting, dysuria or normal hematuria. - Related Data Home Medications Medication Instructions Recorded Confirmed Ergocalciferol (Vitamin D2) 50,000 unit PO Q30D 05/12/17 08/04/18 [Vitamin D2] Apixaban [Eliquis] 2.5 mg PO BID 12/17/17 08/04/18 Mylanta Suspension 200-200-20 Mg/5l 15 ml PO TID 06/06/18 08/04/18 Previous Rx's Medication Instructions Recorded Atorvastatin [Lipitor] 20 mg PO HS tab 12/28/17 Ferrous Sulfate [Feosol] 325 mg PO DAILY #90 tab 03/24/18 Acetaminophen Tab [Tylenol] 650 mg PO Q4HR PRN tab 03/30/18 Levothyroxine Sodium [Synthroid] 88 mcg PO DAILY@0630 tab 05/18/18 Metoprolol Tartrate [Lopressor] 50 mg PO BID tab 05/18/18 Aspirin 81 mg PO DAILY chew 06/14/18 Allergies Allergy/AdvReac Type Severity Reaction Status Date / Time codeine Allergy Rash/Hives Verified 08/04/18 10:40 ciprofloxacin AdvReac Diarrhea Verified 08/04/18 10:40 Review of Systems ROS Statement: Those systems with pertinent positive or pertinent negative responses have been documented in the HPI. ROS Other: All systems not noted in ROS Statement are negative. 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 Chronic renal failure, hypertension, hyperlipidemia, hypothyroidism, history of rheumatic fever, history of scarlet fever,uti-ecoli 01-19-18, vit d deficiency, colon cancer(sx-ileostomy), hx paroxysaml afib History of Any Multi-Drug Resistant Organisms: None Reported Past Surgical History: Adenoidectomy, Tonsillectomy Additional Past Surgical History / Comment(s): part of thyroid removed, colonoscopy, colectomy-2nd expolatroy sx same admission ended up with ileostomy Past Anesthesia/Blood Transfusion Reactions: Unable to Obtain Additional Past Anesthesia/Blood Transfusion Reaction / Comment(s): patient states she had a hard time waking up after having anesthesia. received blood trnsfusions- no reaction Past Psychological History: Unable to Obtain Smoking Status: Never smoker Past Alcohol Use History: None Reported Past Drug Use History: None Reported - Past Family History Father Family Medical History: No Reported History Additional Family Medical History / Comment(s): parkinsons Mother History Unknown: Yes Family Medical History: Cancer, Diabetes Mellitus Additional Family Medical History / Comment(s): colon cancer Sister(s) Additional Family Medical History / Comment(s): breast cancer General Exam Limitations: no limitations General appearance: alert, in no apparent distress Head exam: Present: atraumatic, normocephalic, normal inspection Neck exam: Present: normal inspection. Absent: tenderness, meningismus, lymphadenopathy Respiratory exam: Present: normal lung sounds bilaterally. Absent: respiratory distress, wheezes, rales, rhonchi, stridor Cardiovascular Exam: Present: regular rate, normal rhythm, normal heart sounds. Absent: systolic murmur, diastolic murmur, rubs, gallop, clicks GI/Abdominal exam: Present: soft, normal bowel sounds. Absent: distended, tenderness, guarding, rebound, rigid Neurological exam: Present: alert, oriented X3, CN II-XII intact Skin exam: Present: warm, dry, intact, normal color. Absent: rash Course Vital Signs 08/04/18 10:08 Temperature 97.5 F L Pulse Rate 58 L Respiratory 20 Rate Blood Pressure 161/71 O2 Sat by Pulse 99 Oximetry Medical Decision Making - Medical Decision Making 83-year-old female presented emergency department for bloody bowel movement. Patient had no recurrent bleeding in emergency department though she is on Eliquis, hemoglobin is stable. Patient will be admitted for observation of GI bleed. Repeat H&H. - Lab Data Result diagrams: 08/04/18 10:51 08/04/18 10:51 Lab Results 08/04/18 08/04/18 08/04/18 Range/Units 10:51 10:51 10:51 WBC 4.2 (3.8-10.6) k/uL RBC 3.97 (3.80-5.40) m/uL Hgb 11.9 (11.4-16.0) gm/dL Hct 36.6 (34.0-46.0) % MCV 92.2 (80.0-100.0) fL MCH 30.1 (25.0-35.0) pg MCHC 32.7 (31.0-37.0) g/dL RDW 13.6 (11.5-15.5) % Plt Count 194 (150-450) k/uL Neutrophils % (Manual) 62 % Lymphocytes % (Manual) 20 % Monocytes % (Manual) 11 % Eosinophils % (Manual) 7 % Neutrophils # (Manual) 2.60 (1.3-7.7) k/uL Lymphocytes # (Manual) 0.84 L (1.0-4.8) k/uL Monocytes # (Manual) 0.46 (0-1.0) k/uL Eosinophils # (Manual) 0.29 (0-0.7) k/uL Nucleated RBCs 0 (0-0) /100 WBC Manual Slide Review Performed RBC Morphology Normal PT 10.9 (9.0-12.0) sec INR 1.0 (<1.2) APTT 24.0 (22.0-30.0) sec Sodium 140 (137-145) mmol/L Potassium 4.9 (3.5-5.1) mmol/L Chloride 107 (98-107) mmol/L Carbon Dioxide 26 (22-30) mmol/L Anion Gap 7 mmol/L BUN 34 H (7-17) mg/dL Creatinine 0.97 (0.52-1.04) mg/dL Est GFR (CKD-EPI)AfAm 64 (>60 ml/min/1.73 sqM) Est GFR (CKD-EPI)NonAf 55 (>60 ml/min/1.73 sqM) Glucose 77 (74-99) mg/dL Calcium 9.2 (8.4-10.2) mg/dL Magnesium 2.0 (1.6-2.3) mg/dL Total Bilirubin 0.6 (0.2-1.3) mg/dL AST 25 (14-36) U/L ALT 30 (9-52) U/L Alkaline Phosphatase 51 (38-126) U/L Total Protein 6.1 L (6.3-8.2) g/dL Albumin 3.4 L (3.5-5.0) g/dL Disposition Clinical Impression: GI bleed Disposition: ADMITTED IP TO THIS [facility] Condition: Fair Referrals: Rolando Angel MD [Primary Care Provider] - 1-2 days
[2018-08-04 11:16] LABS: HCT 36.6 % (34.0-46.0); HGB 11.9 gm/dL (11.4-16.0); MCH 30.1 pg (25.0-35.0); MCHC 32.7 g/dL (31.0-37.0); MCV 92.2 fL (80.0-100.0); Mean Platelet Volume 8.7; Platelet Count 194 k/uL (150-450); RBC 3.97 m/uL (3.80-5.40); RDW 13.6 % (11.5-15.5); WBC 4.2 k/uL (3.8-10.6)
[2018-08-04 11:25] LABS: Prothrombin Time 10.9 sec (9.0-12.0)
[2018-08-04 11:27] LABS: Albumin 3.4 g/dL (3.5-5.0); Calcium 9.2 mg/dL (8.4-10.2); Potassium 4.9 mmol/L (3.5-5.1); Total Bilirubin 0.6 mg/dL (0.2-1.3); Total Protein 6.1 g/dL (6.3-8.2)
[2018-08-04 11:43] LABS: Eosinophils # (M) 0.29 k/uL (0-0.7); Lymphocytes # (M) 0.84 k/uL (1.0-4.8); Monocytes # (M) 0.46 k/uL (0-1.0); Neutrophils % (M) 62 %; Nucleated Red Blood Cells 0 /100 WBC (0-0); Total Cells Counted 100
[2018-08-04] MEDS ORDERED: NALOXONE 0.4 MG/ML 1 ML VIAL IV PRN (12:07)
[2018-08-04] MEDS ORDERED: ACETAMINOPHEN TAB 325 MG TAB PO PRN (12:07)
[2018-08-04 12:20] VITALS: PULSE 77; RESP 18
[2018-08-04 12:32] VITALS: BP 166/66; TEMP 98.2
== END 2018-08-04 12:32 | disposition left against medical advice (07) ==
LOC: EC 10:06 → 4SSUR 12:05
PROVIDERS: ADMIT Internal Medicine; ATTEND Internal Medicine
DX: K92.2 Gastrointestinal hemorrhage, unspecified (principal); I12.9 Hypertensive chronic kidney disease with stage 1 through stage 4 chronic kidney disease, or unspecified chronic kidney disease; E55.9 Vitamin D deficiency, unspecified; I48.0 Paroxysmal atrial fibrillation; N18.9 Chronic kidney disease, unspecified; E78.5 Hyperlipidemia, unspecified; Z93.2 Ileostomy status; E03.9 Hypothyroidism, unspecified; K21.9 Gastro-esophageal reflux disease without esophagitis; Z79.82 Long term (current) use of aspirin; Z79.01 Long term (current) use of anticoagulants; Z87.440 Personal history of urinary (tract) infections; Z79.890 Hormone replacement therapy; Z85.038 Personal history of other malignant neoplasm of large intestine; Z86.73 Personal history of transient ischemic attack (TIA), and cerebral infarction without residual deficits; Z90.49 Acquired absence of other specified parts of digestive tract; Z80.0 Family history of malignant neoplasm of digestive organs; Z80.3 Family history of malignant neoplasm of breast; Z82.0 Family history of epilepsy and other diseases of the nervous system; Z83.3 Family history of diabetes mellitus; Z83.1 Family history of other infectious and parasitic diseases
CPT/HCPCS: 96360; 99285; 36415; 86900; 86901; 80053; 83735; 85025; 85610; 85730; 86850; G0378

== ENCOUNTER → 2018-09-26 | Outpatient (CLI) | payer MEDICARE ==
[2018-09-26 10:23] LABS: HCT 42.1 % (34.0-46.0); HGB 13.5 gm/dL (11.4-16.0); MCH 28.9 pg (25.0-35.0); MCV 90.3 fL (80.0-100.0); Platelet Count 240 k/uL (150-450); RBC 4.66 m/uL (3.80-5.40); RDW 12.9 % (11.5-15.5)
[2018-09-26 17:24] LABS: Albumin 4.2 g/dL (3.80-4.90); Albumin/Globulin Ratio 1.91 (1.60-3.17); Anion Gap 5.9 mmol/L (4.00-12.00); Carbon Dioxide 26.1 mmol/L (21.6-31.8); Globulin 2.2 g/dL (1.6-3.3); LDL Cholesterol,Calculated 50.8 mg/dL (0.0-131.0); Potassium 4.1 mmol/L (3.5-5.5); Total Bilirubin 0.6 mg/dL (0.3-1.2); Total Protein 6.4 g/dL (6.2-8.2); VLDL Calculation 17.2 mg/dL (5.00-40.00)
[2018-09-26 17:31] LABS: T4, Free (Free Thyroxine) 1.3 ng/dL (0.80-1.80)
== END | disposition home or self-care (01) ==
LOC: LABWHC1 09:39
PROVIDERS: ATTEND Internal Medicine
DX: Z00.00 Encounter for general adult medical examination without abnormal findings (principal); I48.91 Unspecified atrial fibrillation; E78.2 Mixed hyperlipidemia; D50.9 Iron deficiency anemia, unspecified
CPT/HCPCS: 36415; 80053; 80061; 84439; 84443; 85027

== ENCOUNTER 2021-05-10 09:58 | Emergency (ER) | payer MEDICARE ==
[2021-05-10 10:47] VITALS: RESP 18; TEMP 97.9
--- NOTE | 2021-05-10 11:38 | ED ---
General Adult HPI - General Chief complaint: Skin/Abscess/Foreign Body Stated complaint: Rt Breast Pain,Bleeding Time Seen by Provider: 05/10/21 11:20 Source: patient, family, RN notes reviewed, old records reviewed Mode of arrival: ambulatory Limitations: no limitations - History of Present Illness Initial comments: 82-year-old female, alert and oriented 4, presents to the emergency room with continued rash under bilateral breasts for several weeks. Patient states that she is using an over the counter antifungal powder with no relief. She states that the rash is red and she noticed some bleeding today which is why she came into the emergency room. She has history of chronic cystic breasts with multiple biopsies and wants to schedule a mammogram. She has an appointment with her primary care doctor on the . She states that she is not concerned about a lump at this time and that the bleeding is coming from the rash. -: week(s) (2) Location: chest (under each breast and right axilla), upper extremity (axilla) Quality: other (sore) Consistency: intermittent Associated Symptoms: denies other symptoms Treatments Prior to Arrival: other (antifungal powder) - Related Data Home Medications Medication Instructions Recorded Confirmed Ergocalciferol (Vitamin D2) 50,000 unit PO Q30D 05/12/17 08/04/18 [Vitamin D2] Apixaban [Eliquis] 2.5 mg PO BID 12/17/17 08/04/18 Mylanta Suspension 200-200-20 Mg/5l 15 ml PO TID 06/06/18 08/04/18 Previous Rx's Medication Instructions Recorded Atorvastatin [Lipitor] 20 mg PO HS tab 12/28/17 Ferrous Sulfate [Feosol] 325 mg PO DAILY #90 tab 03/24/18 Acetaminophen Tab [Tylenol] 650 mg PO Q4HR PRN tab 03/30/18 Levothyroxine Sodium [Synthroid] 88 mcg PO DAILY@0630 tab 05/18/18 Metoprolol Tartrate [Lopressor] 50 mg PO BID tab 05/18/18 Aspirin 81 mg PO DAILY chew 06/14/18 Clotrimazole Cream [Lotrimin Cream] 1 applic TOPICAL BID #15 gm 05/10/21 Allergies Allergy/AdvReac Type Severity Reaction Status Date / Time codeine Allergy Rash/Hives Verified 05/10/21 10:46 ciprofloxacin AdvReac Diarrhea Verified 05/10/21 10:46 Review of Systems ROS Statement: Those systems with pertinent positive or pertinent negative responses have been documented in the HPI. ROS Other: All systems not noted in ROS Statement are negative. 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 Chronic renal failure, hypertension, hyperlipidemia, hypothyroidism, history of rheumatic fever, history of scarlet fever,uti-ecoli 01-19-18, vit d deficiency, colon cancer(sx-ileostomy), hx paroxysaml afib History of Any Multi-Drug Resistant Organisms: None Reported Past Surgical History: Adenoidectomy, Tonsillectomy Additional Past Surgical History / Comment(s): part of thyroid removed, colonoscopy, colectomy-2nd expolatroy sx same admission ended up with ileostomy Past Anesthesia/Blood Transfusion Reactions: Unable to Obtain Additional Past Anesthesia/Blood Transfusion Reaction / Comment(s): patient states she had a hard time waking up after having anesthesia. received blood trnsfusions- no reaction Past Psychological History: Unable to Obtain Past Alcohol Use History: None Reported Past Drug Use History: None Reported - Past Family History Father Family Medical History: No Reported History Additional Family Medical History / Comment(s): parkinsons Mother History Unknown: Yes Family Medical History: Cancer, Diabetes Mellitus Additional Family Medical History / Comment(s): colon cancer Sister(s) Additional Family Medical History / Comment(s): breast cancer General Exam Limitations: no limitations General appearance: alert, in no apparent distress Head exam: Present: atraumatic, normocephalic, normal inspection Eye exam: Present: normal appearance ENT exam: Present: normal exam, normal oropharynx, mucous membranes moist Neck exam: Present: normal inspection, full ROM. Absent: tenderness, meningismus, lymphadenopathy, thyromegaly Respiratory exam: Present: normal lung sounds bilaterally. Absent: respiratory distress, wheezes, rales, rhonchi, stridor, chest wall tenderness, accessory muscle use Cardiovascular Exam: Present: tachycardia GI/Abdominal exam: Present: soft, normal bowel sounds. Absent: distended, tenderness, guarding, rebound, rigid Extremities exam: Present: normal capillary refill. Absent: tenderness, pedal edema Back exam: Present: normal inspection, full ROM. Absent: tenderness, CVA tenderness (R), CVA tenderness (L), rash noted Neurological exam: Present: alert, oriented X3 Psychiatric exam: Present: normal affect, normal mood Skin exam: Present: warm, rash (Candidal rash and her bilateral breasts, right axilla, moist), other Course Vital Signs 05/10/21 05/10/21 10:42 12:14 Temperature 97.9 F Pulse Rate 111 H 98 Respiratory 18 18 Rate Blood Pressure 140/80 138/78 O2 Sat by Pulse 96 Oximetry Medical Decision Making - Medical Decision Making Patient has a history of candidal rash to bilateral breasts. She is using a antifungal powder [id number] with no relief. She states that the rash seems to be getting worse and she had some bleeding on her nightgown this morning. Patient will be given a dose of diflucan and clotrimzole cream. She was also directed to air dry the areas multiple times throughout the day. Directed to follow up as scheduled with PCP 05/27/2021. Patient family member are agreeable to this plan of care. Case discussed with Dr Won Melara Clinical Impression: Candidal intertrigo Disposition: HOME SELF-CARE Instructions (If sedation given, give patient instructions): Skin Yeast Infection (ED) Additional Instructions: Take medication as prescribed and follow-up with your primary care doctor this week. Allow breast tissue to air dry. Return to the emergency room with any new or worsening symptoms. Prescriptions: Clotrimazole Cream [Lotrimin Cream] 1 applic TOPICAL BID #15 gm Is patient prescribed a controlled substance at d/c from ED?: No Referrals: Cb Porter MD [Primary Care Provider] - 1-2 days Time of Disposition: 11:47
[2021-05-10] MEDS ORDERED: FLUCONAZOLE 150 MG TAB PO STA (11:44)
[2021-05-10 12:15] VITALS: BP 138/78; PULSE 98
== END 2021-05-10 12:14 | disposition home or self-care (01) ==
LOC: EC 09:58
DX: B37.2 Candidiasis of skin and nail (principal); I10 Essential (primary) hypertension; I48.91 Unspecified atrial fibrillation; Z88.5 Allergy status to narcotic agent; Z88.1 Allergy status to other antibiotic agents; Z79.01 Long term (current) use of anticoagulants
CPT/HCPCS: 99283

== ENCOUNTER → 2021-07-10 | Outpatient (CLI) | payer MEDICARE | END | disposition home or self-care (01) | LOC: RADMAMWWP 14:53 | PROVIDERS: ATTEND Internal Medicine | DX: Z53.9 Procedure and treatment not carried out, unspecified reason (principal) ==

== ENCOUNTER 2024-08-04 13:22 | Emergency (ER) | payer MEDICARE ==
[2024-08-04 14:03] VITALS: TEMP 98.4
--- NOTE | 2024-08-04 14:20 | ED ---
Wound/Laceration HPI - General Chief Complaint: Wound/Laceration Stated Complaint: R Arm Wound Drainage-Sent by PCP Time Seen by Provider: 08/04/24 13:40 Source: patient, family, RN notes reviewed Mode of arrival: ambulatory Limitations: no limitations - History of Present Illness Initial Comments: This is a 89-year-old female with history of CVA on Eliquis presenting to emergency department for chief complaint of a right arm skin avulsion/abrasion. It is reported that last week patient pinched her right arm and had a wound afterwards. Patient denies falling or hitting her head at the time of the injury. States that she has been having a difficult time controlling bleeding from the site. She denies fevers, chills, nausea, vomiting. Has been doing wound care at home. - Related Data Home Medications Medication Instructions Recorded Confirmed Ergocalciferol (Vitamin D2) 50,000 unit PO Q30D 05/12/17 08/04/18 [Vitamin D2] Apixaban [Eliquis] 2.5 mg PO BID 12/17/17 08/04/18 Mylanta Suspension 200-200-20 Mg/5l 15 ml PO TID 06/06/18 08/04/18 Previous Rx's Medication Instructions Recorded Atorvastatin [Lipitor] 20 mg PO HS tab 12/28/17 Ferrous Sulfate [Feosol] 325 mg PO DAILY #90 tab 03/24/18 Acetaminophen Tab [Tylenol] 650 mg PO Q4HR PRN tab 03/30/18 Levothyroxine Sodium [Synthroid] 88 mcg PO DAILY@0630 tab 05/18/18 Metoprolol Tartrate [Lopressor] 50 mg PO BID tab 05/18/18 Aspirin 81 mg PO DAILY chew 06/14/18 Clotrimazole Cream [Lotrimin Cream] 1 applic TOPICAL BID #15 gm 05/10/21 Allergies Allergy/AdvReac Type Severity Reaction Status Date / Time codeine Allergy Rash/Hives Verified 08/04/24 14:03 ciprofloxacin AdvReac Diarrhea Verified 08/04/24 14:03 Review of Systems ROS Statement: Those systems with pertinent positive or pertinent negative responses have been documented in the HPI. ROS Other: All systems not noted in ROS Statement are negative. 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 Chronic renal failure, hypertension, hyperlipidemia, hypothyroidism, history of rheumatic fever, history of scarlet fever,uti-ecoli 01-19-18, vit d deficiency, colon cancer(sx-ileostomy), hx paroxysaml afib History of Any Multi-Drug Resistant Organisms: None Reported Past Surgical History: Adenoidectomy, Tonsillectomy Additional Past Surgical History / Comment(s): part of thyroid removed, colonosc opy, colectomy-2nd expolatroy sx same admission ended up with ileostomy Past Anesthesia/Blood Transfusion Reactions: Unable to Obtain Additional Past Anesthesia/Blood Transfusion Reaction / Comment(s): patient states she had a hard time waking up after having anesthesia. received blood trnsfusions- no reaction Past Psychological History: Unable to Obtain Past Alcohol Use History: None Reported Past Drug Use History: None Reported - Past Family History Father Family Medical History: No Reported History Additional Family Medical History / Comment(s): parkinsons Mother History Unknown: Yes Family Medical History: Cancer, Diabetes Mellitus Additional Family Medical History / Comment(s): colon cancer Sister(s) Additional Family Medical History / Comment(s): breast cancer General Exam Limitations: no limitations General appearance: alert, in no apparent distress ENT exam: Present: normal exam, mucous membranes moist Respiratory exam: Present: normal lung sounds bilaterally. Absent: respiratory distress, wheezes, rales, rhonchi, stridor Cardiovascular Exam: Present: regular rate, normal rhythm, normal heart sounds. Absent: systolic murmur, diastolic murmur, rubs, gallop, clicks GI/Abdominal exam: Present: soft, normal bowel sounds. Absent: distended, tenderness, guarding, rebound, rigid Right Forearm Wrist exam: Present: other (5 mm skin avulsion to lateral forearm) Neuro motor exam: Present: wrist extension intact, thumb opposition intact Vascular: Present: normal capillary refill, radial pulse (2+). Absent: vascular compromise Back exam: Present: normal inspection Course Vital Signs 08/04/24 08/04/24 13:59 14:42 Temperature 98.4 F 98.4 F Pulse Rate 101 H 97 Respiratory 17 16 Rate Blood Pressure 151/85 145/82 O2 Sat by Pulse 94 L 95 Oximetry Medical Decision Making - Medical Decision Making Was pt. sent in by a medical professional or institution (, [facility], [employer], urgent care, hospital, or residential...) When possible be specific @ -No Did you speak to anyone other than the patient for history (EMS, parent, family, police, friend...)? What history was obtained from this source @ -No Did you review nursing and triage notes (agree or disagree)? Why? @ -I reviewed and agree with nursing and triage notes Were old charts reviewed (outside hosp., previous admission, EMS record, old EKG, old radiological studies, urgent care reports/EKG's, residential records)? Report findings @ -No old charts were reviewed Differential Diagnosis (chest pain, altered mental status, abdominal pain women, abdominal pain men, vaginal bleeding, weakness, fever, dyspnea, syncope, headache, dizziness, GI bleed, back pain, seizure, CVA, palpatations, mental health, musculoskeletal)? @ -Skin laceration, skin avulsion, this list is not all inclusive EKG interpreted by me (3pts min.). @ -None X-rays interpreted by me (1pt min.). @ -None done CT interpreted by me (1pt min.). @ -None done U/S interpreted by me (1pt. min.). @ -None done What testing was considered but not performed or refused? (CT, X-rays, U/S, labs)? Why? @ -None What meds were considered but not given or refused? Why? @ -None Did you discuss the management of the patient with other professionals (professionals i.e. [facility] Naik, [employer], lab, RT, psych nurse, psychiatric social worker, information architect, teacher, marketing and communications officer, family preservation caseworker)? Give summary @ -No Was smoking cessation discussed for >3mins.? @ -No Was critical care preformed (if so, how long)? @ -No Were there social determinants of health that impacted care today? How? (Homelessness, low income, unemployed, alcoholism, drug addiction, transportation, low edu. Level, literacy, decrease access to med. care, senior care, rehab)? @ -No Was there de-escalation of care discussed even if they declined (Discuss DNR or withdrawal of care, Hospice)? DNR status @ -No What co-morbidities impacted this encounter? (DM, HTN, Smoking, COPD, CAD, Cancer, CVA, ARF, Chemo, Hep., AIDS, mental health diagnosis, sleep apnea, morbid obesity)? @ -None Was patient admitted / discharged? Hospital course, mention meds given and route, prescriptions, significant lab abnormalities, going to OR and other pertinent info. @ -Discharge. 89-year-old presenting with right arm skin avulsion. Bandage removed revealing a 5 mm skin avulsion with no signs of active bleeding. Neurovascularly intact of the upper extremity. Area was cleansed with sterile water. Steri-Strips placed. No concerning signs of cellulitis. Return parameters discussed. Case discussed with Dr. Townsend Undiagnosed new problem with uncertain prognosis? @ -No Drug Therapy requiring intensive monitoring for toxicity (Heparin, Nitro, Insulin, Cardizem)? @ -No Were any procedures done? @ -No Diagnosis/symptom? @ -skin avulsion Acute, or Chronic, or Acute on Chronic? @ -acute Uncomplicated (without systemic symptoms) or Complicated (systemic symptoms)? @ -uncomplicated Side effects of treatment? @ -No Exacerbation, Progression, or Severe Exacerbation? @ -No Poses a threat to life or bodily function? How? (Chest pain, [place], [place], pneumonia, PE, COPD, DKA, ARF, appy, cholecystitis, CVA, Diverticulitis, Homicidal, Suicidal, threat to staff... and all critical care pts) @ -No Disposition Clinical Impression: Skin avulsion Disposition: HOME SELF-CARE Condition: Good Instructions (If sedation given, give patient instructions): Skin Avulsion (ED) Additional Instructions: Please return to the Emergency Department if symptoms worsen or any other concerns. Is patient prescribed a controlled substance at d/c from ED?: No Referrals: Cb Porter MD [Primary Care Provider] - 1-2 days Time of Disposition: 14:20
[2024-08-04 14:43] VITALS: BP 145/82; PULSE 97; RESP 16
== END 2024-08-04 14:43 | disposition home or self-care (01) ==
LOC: EC 13:22
DX: Z53.9 Procedure and treatment not carried out, unspecified reason (principal)